=== PATIENT | female | born 1985 | race Two or more races ===

== ENCOUNTER 2024-01-15 00:05 | Emergency (ER) | payer MEDICAID ==
[~2024-01-15] VITALS: Ht 177.8 cm; Wt 113.6 kg
[2024-01-15] MEDS: OXYMETAZOLINE HCL 0.05 % NASAL SPRAY 15ML EACHNOSTRI ONE (00:19)
[2024-01-15 02:09] VITALS: BP 159/90; TEMP 99
[2024-01-15 02:19] VITALS: PULSE 94; RESP 20; O2SAT 96
== END 2024-01-15 02:21 | disposition home or self-care (01) ==
LOC: ER 00:05
DX: R04.0 Epistaxis (principal); R42 Dizziness and giddiness; R53.1 Weakness; Z88.0 Allergy status to penicillin

== ENCOUNTER 2024-06-12 01:03 | Emergency (ER) | payer SELFPAY ==
[~2024-06-12] VITALS: Ht 177.8 cm; Wt 113.6 kg
--- NOTE | 2024-06-12 01:57 | DVH ---
XY L KNEE 3V XRAY, INDICATION: pain injuiry TECHNICAL DATA: Multiple views of the left femur and knee. COMPARISON: None Findings/impression: No acute fracture or dislocation. 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 No significant knee joint effusion.
[2024-06-12] MEDS: MORPHINE SULFATE INJ 2 MG/ml SYRG IM ONE (03:05)
[2024-06-12] MEDS ORDERED: KETO10TA PO (03:12)
[2024-06-12] MEDS ORDERED: TIZA-142 PO (03:12)
--- NOTE | 2024-06-12 03:12 | ED.PDOC ---
Back pain HPI HPI Comments 8-year-old female presents to the ED chief complaint left upper leg pain. Patient states on 06/06 fell in bathroom landing on her left side hurting her left leg. Left leg pain upper thigh radiating into knee lower leg 10/10 on pain scale sharp shooting type pain she also notes some swelling. Notes taking ove [id number] ibuprofen with little relief. Denies numbness, weakness, neck pain, back pain, head injury or LOC. Chief Complaint: Lower Extremity Time Seen by MD: 01:12 Primary Care Provider: None Reviewed Notes: Nurses Notes, Medications, Allergies Allergies: Coded Allergies: Penicillins (Verified Allergy, Unknown, 01/15/24) Home Meds Active Scripts Ketorolac Tromethamine (Ketorolac Tromethamine) 10 Mg Tab, 1 TAB PO TID PRN for 5 Days, #15 TAB Prov:JOSE MARIN ACCOUNTANT PROPERTY 06/12/24 Tizanidine Hydrochloride (Tizanidine Hcl) 4 Mg Tab, 1 TAB PO BID PRN for 7 Days, #14 TAB Prov:JOSE MARINP 06/12/24 Information Source: Patient Mode of Arrival: Ambulatory Past Medical History PAST MEDICAL HISTORY: Anemia Surgical History: Denies all surgeries TRAINING SPECIALIST History: No Pertinent TRAINING SPECIALIST History Family History Family History: Reviewed,noncontributory to illness Social History Smoker: Non-Smoker Alcohol: Denies ETOH Use Drugs: Denies Drug Use Constitutional: denies: chills, diaphoresis, fatigue, fever, malaise, sweats, weakness, others EENTM: denies: blurred vision, double vision, ear bleeding, ear discharge, ear drainage, ear pain, ear ringing, eye pain, eye redness, hearing loss, mouth pain, mouth swelling, nasal discharge, nose bleeding, nose congestion, nose pain, photophobia, tearing, throat pain, throat swelling, voice changes, others Respiratory: denies: cough, hemoptysis, orthopnea, SOB at rest, shortness of breath, SOB with excertion, stridor, wheezing, others Cardiovascular: denies: chest pain, dizzy spells, diaphoresis, Dyspnea on exertion, edema, irregular heart beat, left arm pain, lightheadedness, palpitations, PND, syncope, others Gastrointestinal: denies: abdomen distended, abdominal pain, blood streaked bowels, constipated, diarrhea, dysphagia, difficulty swallowing, hematemesis, melena, nausea, poor appetite, poor fluid intake, rectal bleeding, rectal pain, vomiting, others Genitourinary: denies: abnormal vagina bleeding, burning, dyspareunia, dysuria, flank pain, frequency, hematuria, incontinence, pain, , vagina discharge, urgency, others Neurological: denies: dizziness, fainting, headache, left sided numbness, left sided weakness, numbness, paresthesia, pre-existing deficit, right sided numbness, right sided weakness, seizure, speech problems, tingling, tremors, weakness, others Musculoskeletal: denies: back pain, gout, joint pain, joint swelling, muscle pain, muscle stiffness, neck pain, others Integumetry: denies: bruises, change in color, change in hair/nails, dryness, laceration, lesions, lumps, rash, wounds, others Allergic/Immunocompromised: denies: Difficulty Healing, Frequent Infections, Hives, Itching, others Hematologic/Lymphatic: denies: anemia, blood clots, easy bleeding, easy bruising, swollen glands, others Endocrine: denies: excessive hunger, excessive sweating, excessive thirst, excessive urination, flushing, intolerance to cold, intolerance to heat, un explained weight gain, unexplained weight loss, others Psychiatric: denies: anxiety, bipolar disorder, depression, hopeless, panic disorder, schizophrenia, sleepless, suicidal, others Physical Exam General Appearance: No Apparent Distress, Normal HEENT: Pharynx Normal Neck: Full Range of Motion, Non-Tender Respiratory: Lungs Clear, No Respiratory Distress, Normal Breath Sounds Cardiovascular: No Murmur, Normal Peripheral Pulses, Regular Rate/Rhythm Breast Exam: Deferred Gastrointestinal: Non Tender, Soft Genitalia: Deferred Pelvic: Deferred Rectal: Deferred Extremities: No calf tenderness, Normal capillary refill, Normal inspection, Normal range of motion, Non-tender, No pedal edema Musculoskeletal : Location: Left Extremity Location: Leg (Complete left thigh with moderate tenderness on palpation no noted ecchymosis, lacerations, lesions or abrasions strength sensory motion intact positive pedal pulse) Apperance: Normal Neurologic: Alert, glass checker II-XII nml as Tested, No Motor Deficits, Normal Affect, Normal Mood, No Sensory Deficits Cerebellar Function: Normal Reflexes: Normal Skin: Dry, Normal Color, Warm Lymphatic: No Adenopathy Was a procedure done? Was a procedure done?: No Back Pain Differential Dx Differential Diagnosis: Musculoskeletal Pain X-Ray, Labs, Meds, VS Vital Signs Date Time Temp Pulse Resp B/P (MAP) Pulse Ox O2 Delivery O2 Flow Rate FiO2 06/12/24 03:41 101 20 126/65 06/12/24 03:05 102 20 133/75 06/12/24 01:07 98.8 110 18 141/80 (100) 92 Current Medications Medications (Trade) Dose Ordered Sig/Bárbara Route Start Time Stop Time Status Last Admin Morphine Sulfate 1 mg ONCE ONCE IM 06/12/24 01:15 06/12/24 01:16 DC 06/12/24 03:05 X-Ray, Labs, Meds, VS Comment Xray impression: no acute fracture or dislocation. 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 No significant knee joint effusion. Given 1 mg morphine IM reports improvement in pain requesting discharge at this time. Likely muscle strain. Script Toradol 10 mg t.i.d. and tizanidine twice daily. Advised to follow up with her PCP regarding results of her x-ray to my of prior bony infarct. Concert blood work and MRI. Advised on rice. Return precautions given patient indicated understanding agrees with discharge plan of care. Time of 1ST Reevaluation: 04:18 Reevaluation 1ST: Improved Patient Education/Counseling: Diagnosis, Treatment, Prognosis, Need For Follow Up Family Education/Counseling: Diagnosis, Treatment, Prognosis, Need For Follow Up Departure 1 Departure Time of Disposition: 04:18 Impression: Primary Impression: Muscle strain of left thigh Qualified Codes: S76.912A - Strain of unspecified muscles, fascia and tendons at thigh level, left thigh, initial encounter Disposition: HOME / SELF CARE / HOMELESS Condition: Stable e-Prescriptions Ketorolac Tromethamine (Ketorolac Tromethamine) 10 Mg Tab 1 TAB PO TID PRN for 5 Days, #15 TAB Prov: JOSE MARIN 06/12/24 Tizanidine Hydrochloride (Tizanidine Hcl) 4 Mg Tab 1 TAB PO BID PRN for 7 Days, #14 TAB Prov: JOSE MARINP 06/12/24 Discharged With: Significant Other Critical Care Note Critical Care Time?: No Stability Stability form required: JOSE Medina Jun 12, 2024 03:12
[2024-06-12 03:45] VITALS: BP 126/65; PULSE 101; RESP 20; TEMP 98.2; O2SAT 95
== END 2024-06-12 03:58 | disposition home or self-care (01) ==
LOC: ER 01:03
DX: S76.812A Strain of other specified muscles, fascia and tendons at thigh level, left thigh, initial encounter (principal); D64.9 Anemia, unspecified; Z88.0 Allergy status to penicillin; Z79.899 Other long term (current) drug therapy; W18.39XA Other fall on same level, initial encounter; Y93.89 Activity, other specified; Y92.89 Other specified places as the place of occurrence of the external cause; Y99.8 Other external cause status
CPT/HCPCS: 73552; 73562; 96372; 99284; J2270

== ENCOUNTER 2024-06-13 04:41 | Inpatient (IN) | payer SELFPAY ==
[2024-06-13] VITALS (17 sets, daily range): BP systolic 105–142; BP diastolic 60–75; PULSE 92–109; RESP 17–20; TEMP 89.9–99.1; O2SAT 95–100
[~2024-06-13] VITALS: Ht 177.8 cm; Wt 114.8 kg
[~2024-06-13 04:41] MED LIST: KETO10TA PO; TIZA-142 PO
[2024-06-13] MEDS: LORazepam 2MG/ML-1ML VIAL IV ONE (05:15)
[2024-06-13] MEDS: ALBUTEROL SULF 2.5 MG/0.5ML(0.5%) NEB SOLN NEB ONE (05:27)
[2024-06-13] MEDS: IPRATROPIUM BROM 0.5 MG/2.5ML INH SOL NEB ONE (05:28)
[2024-06-13] MEDS: SODIUM CHLORIDE 0.9% 1,000 ML IV ONE (05:38)
[2024-06-13 05:46] LABS: Eosinophils # (auto) 0 10 ^3/uL (0-0.8); Eosinophils % (auto) 0.2 % (0.0-7.0); Hematocrit 18.7 % (36.0-46.0); Lymphocytes % (auto) 10.3 % (10.0-50.0); Monocytes # (auto) 0.6 10 ^3/uL (0-1.3)
[2024-06-13] MEDS: ONDANSETRON HCL 4 MG/2 ML VIAL IV ONE (05:49)
[2024-06-13 05:50] LABS: Basophils # (auto) 0.1 10 ^3/uL (0-0.2); Basophils % (auto) 0.6 % (0.0-2.0); Mean Corpuscular Hemoglobin 23.8 pg (28.0-32.0); Mean Corpuscular Hgb Conc. 32.1 g/dL (32.0-36.0); Mean Corpuscular Volume 74.4 fL (80.0-100.0); Monocytes % (auto) 5.8 % (0.0-12.0); Neutrophils # (auto) 8.1 10 ^3/uL (1.6-8.6); Neutrophils % (auto) 83.1 % (37.0-80.0); Nucleated Red Blood Cells % 0.5 %; Platelet Count (auto) 81 10^3/uL (140-450); Red Blood Cells 2.52 10^6/uL (4.0-5.20); Red Cell Distribution Width 21.1 % (11.8-14.3); White Blood Cell 9.8 10^3/uL (4.4-10.8)
--- NOTE | 2024-06-13 06:03 | ED.PDOC ---
History of Present Illness HPI Comments 38 year old female brought in by family complaining of shortness of breath. Patient had a ground level fall 06/06 and injured her left leg. Patient states she has been self medicating with ibuprofen for the pain. Patient seen in ED yesterday for the lower extremity pain and bruising, diagnostics done and karlos ent was prescribed Tizanidine and Ketorolac for the pain. Yesterday, after taking the meds she states she developed shortness of breath, chest discomfort, nausea, fatigue, generalized weakness and continues to bruise easily. Patient currently not on her period, but states she does have heavy menses. Denies any active bleeding. Chief Complaint: Shortness of Breath Time Seen by MD: 06:03 Primary Care Provider: None Reviewed Notes: Nurses Notes Allergies: Coded Allergies: Penicillins (Verified Allergy, Unknown, 01/15/24) Home Meds Active Scripts Ketorolac Tromethamine (Ketorolac Tromethamine) 10 Mg Tab, 1 TAB PO TID PRN for 5 Days, #15 TAB Prov:JOSE MARIN OPERATOR HELPER 06/12/24 Tizanidine Hydrochloride (Tizanidine Hcl) 4 Mg Tab, 1 TAB PO BID PRN for 7 Days, #14 TAB Prov:JOSE MARIN 06/12/24 Information Source: Patient Mode of Arrival: Wheelchair Severity: Moderate Timing: Hours Duration: Since onset Prehospital treatment: None Past Medical History PAST MEDICAL HISTORY: Anemia Surgical History: Denies all surgeries FLOTATION TANK OPERATOR History: No Pertinent FLOTATION TANK OPERATOR History Family History Family History: Reviewed,noncontributory to illness Social History Smoker: Non-Smoker Alcohol: Denies ETOH Use Drugs: Denies Drug Use Lives In: Home Constitutional: reports: fatigue, weakness; denies: chills, diaphoresis, fever, malaise, sweats, others EENTM: denies: blurred vision, double vision, ear bleeding, ear discharge, ear drainage, ear pain, ear ringing, eye pain, eye redness, hearing loss, mouth pain, mouth swelling, nasal discharge, nose bleeding, nose congestion, nose pain, photophobia, tearing, throat pain, throat swelling, voice changes, others Respiratory: reports: shortness of breath; denies: cough, hemoptysis, orthopnea, SOB at rest, SOB with excertion, stridor, wheezing, others Cardiovascular: reports: chest pain; denies: dizzy spells, diaphoresis, Dyspnea on exertion, edema, irregular heart beat, left arm pain, lightheadedness, palpitations, PND, syncope, others Gastrointestinal: reports: nausea, vomiting; denies: abdomen distended, abdominal pain, blood streaked bowels, constipated, diarrhea, dysphagia, difficulty swallowing, hematemesis, melena, poor appetite, poor fluid intake, rectal bleeding, rectal pain, others Genitourinary: denies: abnormal vagina bleeding, burning, dyspareunia, dysuria, flank pain, frequency, hematuria, incontinence, pain, , vagina discharge, urgency, others Neurological: reports: dizziness; denies: fainting, headache, left sided numbness, left sided weakness, numbness, paresthesia, pre-existing deficit, right sided numbness, right sided weakness, seizure, speech problems, tingling, tremors, weakness, others Musculoskeletal: denies: back pain, gout, joint pain, joint swelling, muscle pain, muscle stiffness, neck pain, others Integumetry: denies: bruises, change in color, change in hair/nails, dryness, laceration, lesions, lumps, rash, wounds, others Allergic/Immunocompromised: denies: Difficulty Healing, Frequent Infections, Hives, Itching, others Hematologic/Lymphatic: denies: anemia, blood clots, easy bleeding, easy bruising, swollen glands, others Endocrine: denies: excessive hunger, excessive sweating, excessive thirst, excessive urination, flushing, intolerance to cold, intolerance to heat, unexplained weight gain, unexplained weight loss, others Psychiatric: reports: anxiety; denies: bipolar disorder, depression, hopeless, panic disorder, schizophrenia, sleepless, suicidal, others Physical Exam General Appearance: Mild Distress, Obese HEENT: Pale Conjuntivae (L), Pale Conjuntivae (R), Other (Bilateral small subconjunctival hemorrhages) Neck: Full Range of Motion, Normal Inspection Respiratory: No Accessory Muscle Use, Respiratory Distress (Mild), Rhonchi Cardiovascular: No Edema, No JVD, Tachycardia Breast Exam: Deferred Gastrointestinal: Non Tender, Soft Genitalia: Deferred Pelvic: Deferred Rectal: Deferred Extremities: Normal range of motion, Non-tender, No pedal edema Neurologic: Alert (Oriented x4), No Motor Deficits, Normal Affect, No Sensory Deficits, Other (Appears anxious) Cerebellar Function: NOT DONE Reflexes: NOT DONE Skin: Bruises (On abdominal wall and extremities), Dry, Pallor, Warm Lymphatic: NOT DONE Was a procedure done? Was a procedure done?: No EKG EKG : Comments Sinus tach, rate 101, normal UT and QRS intervals, QTC 480, normal axis, normal QRS, nonspecific T changes. Differential Dx Considerations may include: anemia, electrolyte imbalance, anxiety, bronchitis, pneumonia, viral syndrome, medication side effect, ACS, OR, arrhythmia among others X-Ray, Labs, Meds, VS Vital Signs Date Time Temp Pulse Resp B/P (MAP) Pulse Ox O2 Delivery O2 Flow Rate FiO2 06/13/24 05:48 103 20 95 Room Air* 0 21 06/13/24 05:48 103 20 105/75 (85) 95 06/13/24 05:28 20 97 Room Air* 0 21 06/13/24 04:57 101 06/13/24 04:50 20 95 Room Air* 0 21 06/13/24 04:50 99.1 103 20 105/75 (85) 95 Lab Test 06/13/24 05:15 Range/Units White Blood Count 9.8 4.4-10.8 10^3/uL Red Blood Count 2.52 L 4.0-5.20 10^6/uL Hemoglobin 6.0 *L 12.2-16.2 g/dL Hematocrit 18.7 L 36.0-46.0 % Mean Corpuscular Volume 74.4 L 80.0-100.0 fL Mean Corpuscular Hemoglobin 23.8 L 28.0-32.0 pg Mean Corpuscular Hemoglobin Concent 32.1 32.0-36.0 g/dL Red Cell Distribution Width 21.1 H 11.8-14.3 % Platelet Count 81 L 140-450 10^3/uL Mean Platelet Volume 8.3 6.9-10.8 fL Neutrophils (%) (Auto) 83.1 H 37.0-80.0 % Lymphocytes (%) (Auto) 10.3 10.0-50.0 % Monocytes (%) (Auto) 5.8 0.0-12.0 % Eosinophils (%) (Auto) 0.2 0.0-7.0 % Basophils (%) (Auto) 0.6 0.0-2.0 % Neutrophils # (Auto) 8.1 1.6-8.6 10 ^3/uL Lymphocytes # (Auto) 1.0 0.4-5.4 10 ^3/uL Monocytes # (Auto) 0.6 0-1.3 10 ^3/uL Eosinophils # (Auto) 0 0-0.8 10 ^3/uL Basophils # (Auto) 0.1 0-0.2 10 ^3/uL Nucleated Red Blood Cells 0.5 % Platelet Estimate Pending Prothrombin Time Pending Prothrombin Time INR Pending Activated Partial Thromboplast Time Pending Sodium Level 123 L 136-145 mmol/L Potassium Level 3.7 3.5-5.1 mmol/L Chloride Level 93 L 98-107 mmol/L Carbon Dioxide Level 19 L 20-31 mmol/L Anion Gap 11 5-15 Blood Urea Nitrogen 6 L 9-23 mg/dL Creatinine 0.80 0.550-1.02 mg/dL Glomerular Filtration Rate Calc 97 >90 mL/min BUN/Creatinine Ratio 7.5 L 10.0-20.0 Serum Glucose 116 H 74-106 mg/dL Calcium Level 8.6 L 8.7-10.4 mg/dL Total Bilirubin 4.0 H 0.2-1.0 mg/dL Aspartate Amino Transferase (AST) 97 H 13-40 U/L Alanine Aminotransferase (ALT) 27 7-40 U/L Alkaline Phosphatase 131 H 46-116 U/L Troponin I High Sensitivity 3 L </=34 ng/L B-Type Natriuretic Peptide 349.98 0-100 pg/mL Total Protein 8.4 H 5.7-8.2 g/dL Albumin 3.7 3.2-4.8 g/dL Beta HCG, Quantitative 0.6 L 1.5-4.2 mIU/mL Current Medications Medications (Trade) Dose Ordered Sig/Bárbara Route Start Time Stop Time Status Last Admin Sodium Chloride 1,000 ml @ 1,000 mls/hr Q1H ONCE IV 06/13/24 05:15 06/13/24 06:14 DC 06/13/24 05:47 Ondansetron HCl (Zofran) 4 mg ONCE ONCE IV 06/13/24 05:15 06/13/24 05:16 DC 06/13/24 05:49 Albuterol (Ventolin Medneb) 2.5 mg ONCE ONCE NEB 06/13/24 05:15 06/13/24 05:16 DC 06/13/24 05:27 Ipratropium [place] (Atrovent Medneb) 0.5 mg ONCE ONCE NEB 06/13/24 05:15 06/13/24 05:16 DC 06/13/24 05:28 X-Ray, Labs, Meds, VS Comment 38-year-old female with a history of anemia complaining of shortness a breath, chest discomfort, easy bruising Vitals remarkable for heart rate 103 Exam remarkable for mild respiratory distress and rhonchi, pallor, anxiety Rhythm strip independently interpreted by me: Sinus tach, rate 101, no ectopy. Chest x-ray pending CBC remarkable for hemoglobin 6, platelets 81 CMP remarkable for sodium 123, chloride 93, CO2 19, BNP 349.98, troponin negative, hCG negative, coagulation panel pending Patient treated with the following in the ED: 1 L 0.9 normal saline IV bolus, albuterol 2.5 mg, Atrovent 0.5 mg nebulized, Zofran 4 mg IV, Ativan 0.5 mg IV. Patient typed and crossed for 2 units of packed red cells and transfusion ordered. Plan is to admit the patient for transfusion and Heme-Onc evaluation Patient endorsed to oncoming ED physician at 6:00 a.m. to follow-up on chest x- ray and remainder of labs. Time of 1ST Reevaluation: 05:58 Reevaluation 1ST: Unchanged Consultation: Neurology Patient Education/Counseling: Diagnosis, Treatment Family Education/Counseling: No Family Present Departure 1 Departure Time of Disposition: 06:11 Impression: Primary Impression: Severe anemia Additional Impression: Thrombocytopenia Disposition: 09 ADMITTED INPATIENT Admit to: Tele Condition: Guarded Critical Care Note Critical Care Time?: Yes (35 min-critical care time only) Critical care comment: Critical care time including multiple bedside re-evaluations, review of lab and imaging studies, and discussion of the case with the admitting provider. Patient is high risk for hemodynamic and/or respiratory decompensation. Stability Stability form required: No Heart Score Heart Score: Heart Score Response (Comments) Value History Slightly Suspicious 0 EKG Repolarization Disturb 1 Age <45 0 Risk Factors No known risk factors 0 Troponin Normal limit 0 Total 1 I personally scribed for ROMEO MAKI MD ([email or web address]) on 06/13/24 at 06:03. Electronically submitted by Gabriel Luis ([facility]). ROMEO MAKI MD Jun 13, 2024 06:03
[2024-06-13 06:10] LABS: Alanine Aminotransferase 27 U/L (7-40); Albumin 3.7 g/dL (3.2-4.8); Anion Gap 11 (5-15); BUN/Creatinine Ratio 7.5 (10.0-20.0); Potassium 3.7 mmol/L (3.5-5.1)
[2024-06-13 06:11] LABS: Alkaline Phosphatase 131 U/L (46-116); Aspartate Aminotransferase 97 U/L (13-40); Blood Urea Nitrogen 6 mg/dL (9-23); Calcium 8.6 mg/dL (8.7-10.4); Carbon Dioxide 19 mmol/L (20-31); Chloride 93 mmol/L (98-107); Glucose 116 mg/dL (74-106); Sodium 123 mmol/L (136-145); Total Protein 8.4 g/dL (5.7-8.2)
[2024-06-13 06:18] LABS: INR 1.36 (0.9-1.15); Partial Thromboplastin Time 29.9 SEC (24.5-34.5); Prothrombin Time 14.1 sec (9.3-11.8)
--- NOTE | 2024-06-13 06:37 | DVH ---
CHEST RADIOGRAPH Indication: sob Technique: Single frontal view of the chest was obtained COMPARISON: None FINDINGS: Lines and Tubes: None Lungs: Diffuse increased interstitial prominence. Pleura: No effusion. No pneumothorax. Cardiomediastinal contours: Unremarkable Bones: Unremarkable IMPRESSION: Viral pneumonia versus pulmonary vascular congestion
[2024-06-13] MEDS ORDERED: HYDROcodone-ACET 5/325MG TAB PO PRN (06:45)
[2024-06-13] MEDS ORDERED: ONDANSETRON HCL 4 MG/2 ML VIAL IV PRN (06:45)
[2024-06-13 06:48] LABS: Hypochromia Slight; Platelet Estimate Decreased; Stomatocytes Few
--- NOTE | 2024-06-13 07:14 | DVHHP2 ---
History of Present Illness Reason for Visit: Shortness of breath, weakness, nausea, fatigue, and bruising History of Present Illness Cassie Ferreira is a 38-year-old female with no past medical history who presents to the ED for shortness of breath, bruising, weakness, nausea, and fatigue x1 day. Patient states that she took Toradol at 8:00 a.m. yesterday and around 2 or 3:00 p.m. she started to develop symptoms. Patient also reports that on June 06 she took Mucinex and drank alcohol, was in the shower slipped and fell on her back did not hit her head but she also struck her left side of her leg on the shower and eventually developed bruising. Patient reports that she has bruising all throughout her body and she is not too sure why. Patient reports that she was also sick with a sore throat and congestion for the last 2 weeks. She stated she would just took Mucinex to help with the symptoms with no relief. Patient also reports that she has not seen a primary care physician for over 5 years and does not have 1 currently. Patient denies any chest pain, abdominal pain, vomiting, diarrhea, lightheadedness, and dizziness. Past Surgical History: Other (Left ankle surgery has a plate) Family History: DM, Other (Mom diabetes) Smoke: No ALCOHOL: occassional Drugs: None Lives: with Family Domestic Violence: Neg Review of Systems Constitutional: Yes: Weakness, Other (Fatigue); No: Fever, Chills, Sweats, Malaise Eyes: No: Pain, Vision change, Conjunctivae inflammation, Eyelid inflammation, Other, Redness ENT: No: Ear pain, Ear discharge, Nose pain, Nose discharge, Nose congestion, Mouth pain, Mouth swelling, Throat pain, Throat swelling, Other Respiratory: Shortness of breath; No: Cough, Dry, SOB with excertion, Wheezing, Hemoptysis, Pleuritic Pain, Sputum, Wheezing, Other Cardiovascular: No: Chest Pain, Palpitations, Orthopnea, Paroxysmal Noc. Dyspnea, Edema, Lt Headedness, Other Gastrointestinal: Nausea; No: Vomiting, Abdominal Pain, Diarrhea, Constipation, Melena, Hematochezia, Other Genitourinary: No Dysuria, No Frequency, No Incontinence, No Hematuria, No Retention, No Other Musculoskeletal: leg pain; No: other, neck pain, shoulder pain, arm pain, back pain, hand pain, foot pain Skin: Bruising; No: Rash, Lesions, Jaundice, Other Neurological: No: Weakness, Numbness, Incoordination, Change in speech, Confusion, Seizures, Other Allergies: Coded Allergies: Penicillins (Verified Allergy, Mild, dizziness, 06/13/24) Medications Current Medications Medications Dose Ordered Sig/Bárbara Route Start Time Stop Time Status Last Admin Dose Admin Albuterol 2.5 mg Q6HWA NEB 06/13/24 12:00 UNV Albuterol 2.5 mg Q4HPRN PRN NEB 06/13/24 06:45 UNV Ipratropium [place] 0.5 mg Q6HWA NEB 06/13/24 12:00 UNV Ipratropium [place] 0.5 mg Q4HPRN PRN NEB 06/13/24 06:45 UNV Acetaminophen/ Hydrocodone Bitart 1 tab Q4HP PRN PO 06/13/24 06:45 UNV Ondansetron HCl 4 mg Q4HP PRN IV 06/13/24 06:45 UNV Acetaminophen 650 mg Q6HP PRN PO 06/13/24 06:45 UNV Diphenhydramine HCl 25 mg Q6HP PRN IV 06/13/24 06:45 UNV Methylprednisolone Sodium Succinate 40 mg Q8HR IV 06/13/24 14:00 UNV Famotidine 20 mg DAILY IV 06/13/24 10:00 UNV Exam Vital Signs Vital Signs Date Time Temp Pulse Resp B/P (MAP) Pulse Ox O2 Delivery O2 Flow Rate FiO2 06/13/24 05:48 103 20 95 Room Air* 0 21 06/13/24 05:48 105/75 (85) 06/13/24 04:50 99.1 General Appearance: Alert, Oriented X3, Cooperative, No acute distress HEENT: Atraumatic, PERRLA, EOMI, Mucous membr. moist/pink Respiratory: Normal air movement Cardiovascular: Normal S1, Normal S2, No murmurs Abdominal: Normal bowel sounds, Soft, No tenderness, No hepatospenomegaly, No masses Extremities: No clubbing, No cyanosis, No edema, Normal pulses, No tenderne ss/swelling Skin: No rashes, No breakdown, No significant lesion Neuro: Normal gait, Normal speech, Strength at 5/5 X4 ext, Normal tone, Sensation intact Psych/Mental Status: Mental status NL, Mood NL Labs/Xrays Labs Test 06/13/24 06:15 06/13/24 05:15 Range/Units Troponin I High Sensitivity < 3 L </=34 ng/L White Blood Count 9.8 4.4-10.8 10^3/uL Red Blood Count 2.52 L 4.0-5.20 10^6/uL Hemoglobin 6.0 *L 12.2-16.2 g/dL Hematocrit 18.7 L 36.0-46.0 % Mean Corpuscular Volume 74.4 L 80.0-100.0 fL Mean Corpuscular Hemoglobin 23.8 L 28.0-32.0 pg Mean Corpuscular Hemoglobin Concent 32.1 32.0-36.0 g/dL Red Cell Distribution Width 21.1 H 11.8-14.3 % Platelet Count 81 L 140-450 10^3/uL Mean Platelet Volume 8.3 6.9-10.8 fL Neutrophils (%) (Auto) 83.1 H 37.0-80.0 % Lymphocytes (%) (Auto) 10.3 10.0-50.0 % Monocytes (%) (Auto) 5.8 0.0-12.0 % Eosinophils (%) (Auto) 0.2 0.0-7.0 % Basophils (%) (Auto) 0.6 0.0-2.0 % Neutrophils # (Auto) 8.1 1.6-8.6 10 ^3/uL Lymphocytes # (Auto) 1.0 0.4-5.4 10 ^3/uL Monocytes # (Auto) 0.6 0-1.3 10 ^3/uL Eosinophils # (Auto) 0 0-0.8 10 ^3/uL Basophils # (Auto) 0.1 0-0.2 10 ^3/uL Nucleated Red Blood Cells 0.5 % Platelet Estimate Decreased Hypochromasia (manual) Slight Microcytosis Slight Stomatocytes Few Prothrombin Time 14.1 H 9.3-11.8 sec Prothrombin Time INR 1.36 H 0.9-1.15 Activated Partial Thromboplast Time 29.9 24.5-34.5 SEC Sodium Level 123 L 136-145 mmol/L Potassium Level 3.7 3.5-5.1 mmol/L Chloride Level 93 L 98-107 mmol/L Carbon Dioxide Level 19 L 20-31 mmol/L Anion Gap 11 5-15 Blood Urea Nitrogen 6 L 9-23 mg/dL Creatinine 0.80 0.550-1.02 mg/dL Glomerular Filtration Rate Calc 97 >90 mL/min BUN/Creatinine Ratio 7.5 L 10.0-20.0 Serum Glucose 116 H 74-106 mg/dL Calcium Level 8.6 L 8.7-10.4 mg/dL Total Bilirubin 4.0 H 0.2-1.0 mg/dL Aspartate Amino Transferase (AST) 97 H 13-40 U/L Alanine Aminotransferase (ALT) 27 7-40 U/L Alkaline Phosphatase 131 H 46-116 U/L B-Type Natriuretic Peptide 349.98 0-100 pg/mL Total Protein 8.4 H 5.7-8.2 g/dL Albumin 3.7 3.2-4.8 g/dL Beta HCG, Quantitative 0.6 L 1.5-4.2 mIU/mL CHEST RADIOGRAPH Indication: sob Technique: Single frontal view of the chest was obtained COMPARISON: None FINDINGS: Lines and Tubes: None Lungs: Diffuse increased interstitial prominence. Pleura: No effusion. No pneumothorax. Cardiomediastinal contours: Unremarkable Bones: Unremarkable IMPRESSION: Viral pneumonia versus pulmonary vascular congestion Assessment/Plan Assessment/Plan Assessment/Plan: Acute allergic reaction Severe anemia Thrombocytopenia Hyponatremia R/O Pneumonia Chest x-ray COVID test Flu test Respiratory treatments Ativan given by ER NS given by ER Transfuse PRBCs for hemoglobin less than 7.0 Type and screen PT/PTT HCg Troponins negative Antiemetics EKG UA BNP IV antibiotics IV steroids IV antihistamines Obesity Counseled patient on lifestyle modifications, diet, and exercise ETOH use Counseled patient on ETOH use and cessation FEN/PPX Diet IVf DVT prophylaxis not indicated patient ambulating and patient thrombocytopenic PUD prophylaxis-famotidine given with steroids Home medications not reconciled-possibly reaction to meds that were prescribed Discussed plan of care with patient and nurse Admit to tele Plan discussed with: Patient My Orders Orders - CORRIE ALEXANDRE [employer] Procedure Category Date Status Time Albuterol Medneb PHA 06/13/24 Logged (Ventolin Medneb) 12:00 Albuterol Medneb PHA 06/13/24 Logged (Ventolin Medneb) 06:45 Ipratropium Medneb PHA 06/13/24 Logged (Atrovent Medneb) 12:00 Ipratropium Medneb PHA 06/13/24 Logged (Atrovent Medneb) 06:45 Admit ADMIT 06/13/24 Transmitted 06:36 Allergies RAFAEL 06/13/24 In Process 06:36 Code Status CODE 06/13/24 Transmitted 06:36 Hydrocodone-Acet PHA 06/13/24 Logged 5/325mg Tab ([place] 06:45 Ondansetron Hcl PHA 06/13/24 Logged (Zofran) 06:45 Complete Blood Count LAB 06/14/24 Verified 04:00 Comprehensive LAB 06/14/24 Verified Metabolic Panel 04:00 Cardiac DIET 06/13/24 Transmitted Diet-2gna,Lofat,Lochol Breakfast Acetaminophen Tablet PHA 06/13/24 Logged (Tylenol Tablet) 06:45 Diphenhdramine PHA 06/13/24 Logged Injection (Benadryl 06:45 Methylprednisolone PHA 06/13/24 Logged Sod Succ (Solu Medrol 14:00 Famotidine Injection PHA 06/13/24 Logged (Pepcid Injection) 10:00 Ceftriaxone 1gm/50ml PHA 06/13/24 Logged D5w (Rocephin) 09:00 Ceftriaxone 1gm/50ml PHA 06/13/24 Logged D5w (Rocephin) 07:15 Date of Service: Jun 13, 2024 Billing Provider: CORRIE ALEXANDRE Common Visit Codes: [id number] INP/OBS CARE (HIGH) CORRIE ALEXANDRE Jun 13, 2024 07:14
[2024-06-13] MEDS: SODIUM CHLORIDE 0.9% 1,000 ML IV SCH (08:08)
[2024-06-13 08:13] LABS: Rapid Influenza A Negative (Negative); Rapid Influenza B Negative (Negative)
[2024-06-13] MEDS: FAMOTIDINE (10MG/ML) 2ML VL IV SCH (09:48)
[2024-06-13] MEDS: IPRATROPIUM BROM 0.5 MG/2.5ML INH SOL NEB SCH (11:34)
[2024-06-13] MEDS: ALBUTEROL SULF 2.5 MG/0.5ML(0.5%) NEB SOLN NEB SCH (11:34)
[2024-06-13 11:39] LABS: Urine Bacteria None Seen /hpf (None Seen)
[2024-06-13] MEDS: diphenhdrAMINE HCL 50 MG/1 ML VL IV PRN (11:41)
[2024-06-13] MEDS: cefTRIAXone 1GM/50ML D5W 50 ML IV ONE (11:42)
[2024-06-13 11:43] LABS: Urine Blood 3+ /uL (Negative); Urine Clarity Clear (Clear); Urine Color Yellow (Yellow); Urine Protein, UAD 2+ (Negative); Urine Specific Gravity 1.011 (1.001-1.035); Urine Squamous Epithelial Cell FEW /hpf (<5); Urine Urobilinogen 6 mg/dL (Negative); Urine WBC <1 /hpf (0 - 5); Urine pH 6.5 (5.0-9.0)
[2024-06-13 14:21] LABS: Amphetamine Screen, Urine Neg (NEGATIVE); Barbiturate Scree,Urine Neg (NEGATIVE); Benzodiazephine Screen, Urine Neg (NEGATIVE); Cannabinoid Screen, Urine Neg (NEGATIVE)
[2024-06-13 14:27] LABS: Cocaine Screen, Urine Neg (NEGATIVE); Opiate Scree,Urine Neg (NEGATIVE); Phencyclidine Screen, Urine Neg (NEGATIVE)
[2024-06-13] MEDS: methylPREDNISolone SOD SUCC 40 MG/ML VL IV SCH (15:23)
[2024-06-13 21:56] LABS: COVID19 ANTIGEN SOFIA FIA NEGATIVE (NEGATIVE)
[2024-06-13] MEDS: ACETAMINOPHEN 325 MG TAB PO PRN (23:18)
--- NOTE | 2024-06-13 23:50 | DVHPN2 ---
Subjective 06/13 - pt had recent URI, then feeling weak, recently had a fall on knees in bathroom, but mild bruising in right flank or periumbilcl region. took toradol which caused brusing to onset, shes calling it a allergic reaction. she denies any bleeding from any orifices. denies alcohol. she has severe sore throat. Reviewed: H&P Changes from previous H/P or p: No Changes General: Per HPI Objective Vitals Vital Signs Date Time Temp Pulse Resp B/P (MAP) Pulse Ox O2 Delivery O2 Flow Rate FiO2 06/13/24 23:18 99.1 06/13/24 23:16 108 16 141/87 (105) 95 06/13/24 18:20 Room Air* 0 21 Exam GEN: Healthy appearing, well-developed, under mild distress due to symptoms HEENT: NC/AT; MMM. Hoarse voice. CV: RRR, no m/r/g. LUNGS: CTAB, no w/r/c. ABD: Soft, NT/ND, NBS, no masses or organomegaly. Bruising on periumbilical well lower quadrant region. EXT: skin Warm, well perfused. no rashes. No clubbing, cyanosis, or edema. P itting edema 1 to 2+ up to dior NEURO: Ambulating with no limitations. No focal deficits. Medications Current Medications Medications Dose Ordered Sig/Bárbara Route Start Time Stop Time Status Last Admin Dose Admin Albuterol 2.5 mg Q4HPRN PRN NEB 06/13/24 06:45 Ipratropium [place] 0.5 mg Q4HPRN PRN NEB 06/13/24 06:45 Acetaminophen/ Hydrocodone Bitart 1 tab Q4HP PRN PO 06/13/24 06:45 Ondansetron HCl 4 mg Q4HP PRN IV 06/13/24 06:45 Acetaminophen 650 mg Q6HP PRN PO 06/13/24 06:45 06/13/24 23:18 650 MG Diphenhydramine HCl 25 mg Q6HP PRN IV 06/13/24 06:45 06/13/24 11:41 25 MG Methylprednisolone Sodium Succinate 40 mg Q8HR IV 06/13/24 14:00 06/13/24 23:17 40 MG Famotidine 20 mg DAILY IV 06/13/24 10:00 06/13/24 09:48 20 MG Ceftriaxone Sodium 50 ml @ 100 mls/hr DAILY@09 IV 06/14/24 09:00 Sodium Chloride 1,000 ml @ 75 mls/hr [id number] IV 06/13/24 07:15 06/13/24 08:08 75 MLS/HR Laboratory Results Laboratory Tests 06/13/24 05:15 Chemistry Test 06/13/24 05:15 Albumin 3.7 g/dL (3.2-4.8) Calcium Level 8.6 mg/dL (8.7-10.4) L Total Protein 8.4 g/dL (5.7-8.2) H Coagulation Test 06/13/24 05:15 Prothrombin Time 14.1 sec (9.3-11.8) H Prothrombin Time INR 1.36 (0.9-1.15) H Activated Partial Thromboplast Time 29.9 SEC (24.5-34.5) Cardiac Markers Test 06/13/24 05:15 B-Type Natriuretic Peptide 349.98 pg/mL (0-100) LFT Test 06/13/24 05:15 Alanine Aminotransferase (ALT) 27 U/L (7-40) Alkaline Phosphatase 131 U/L (46-116) H Aspartate Amino Transferase (AST) 97 U/L (13-40) H Total Bilirubin 4.0 mg/dL (0.2-1.0) H Urinalysis Test 06/13/24 11:17 Urine Color Yellow (Yellow) Urine Clarity Clear (Clear) Urine pH 6.5 (5.0-9.0) Urine Specific [place] 1.011 (1.001-1.035) Urine Protein 2+ (Negative) H Urine Ketones 1+ (Negative) H Urine Blood 3+ /uL (Negative) H Urine Nitrite Negative (Negative) Urine Bilirubin 1+ (Negative) H Urine Urobilinogen 6 mg/dL (Negative) Urine Leukocyte Esterase Negative /uL (Negative) Urine RBC <1 /hpf (0 - 4) Urine WBC <1 /hpf (0 - 5) Urine Squamous Epithelial Cells Few /hpf (<5) Urine Bacteria None seen /hpf (None Seen) Urine Glucose Normal mg/dL (Normal) Labs and/or images reviewed: Labs reviewed by me, Image(s) reviewed by me Assessment/Plan Assessment/Plan 06/13 - pt had recent URI, then feeling weak, recently had a fall on knees in bathroom, but mild bruising in right flank or periumbilcl region. took toradol which caused brusing to onset, shes calling it a allergic reaction. she denies any bleeding from any orifices. denies alcohol. she has severe sore throat. Anemia , severe microcytic Thrombocytopenia Bicytopenia Upper respiratory infection Acidosis Bruising in abdomen - patient presenting with bruising, multiple respiratory symptoms --labs showing bicytopenia with anemia and thrombocytopenia. Anemia requiring 2 units PRBC -status post 2 PRBC. Recheck CBC -workup anemia (given blood, cant do iron panel) -hematology consult -CT abdomen to rule out retroperitoneal bleed Neutrophilia Sore throat - Patient presented 2 weeks of URI. With neutrophilia -check strep throat rapid, start Unasyn Hyponatremia - work-up with Moises uOsm.. Hypovolemic versus hypervol. Patient had recent URI, but also signs of volume overload. - And workup with urine sodium, urine osmoles - appears volume overload we will try slow Lasix. Elevated LFTs transaminitis Hyperbilirubinemia -on initial labs on admit, noting mild elevation in LFT and ALP. T bili noted to be elevated as well. - we will differentiate with D bili., GGT, CTabd eval liver/GB/biliary Acute on chronic diastolic heart failure possible Pitting edema bilateral - BNP elevated, bilateral pitting edema, but no rales. - echo - slow diuresis trial Diet cardiac DVT prophylaxis-SCDs GI prophylaxis tolerating diet Med tele Full code Plan discussed with: Patient My Orders Orders - GONZALO GREGORY MD Procedure Category Date Status Time Acute Hepatitis Panel LAB 06/13/24 In Process 12:44 Date of Service: Jun 13, 2024 Billing Provider: GONZALO GREGORY MD Common Visit Codes: [id number] INP/OBS CARE(HIGH) GONZALO GREGORY MD Jun 13, 2024 23:50
[2024-06-14] VITALS (13 sets, daily range): BP systolic 112–163; BP diastolic 50–95; PULSE 61–123; RESP 16–20; TEMP 97.6–98.6; O2SAT 87–100
[2024-06-14] MEDS: AMPICILLIN & SULBACTAM SODIUM 3 GM in SODIUM CHL 0.9% 100 ML IV SCH (01:30)
[2024-06-14 04:27] LABS: Basophils # (auto) 0 10 ^3/uL (0-0.2); Eosinophils # (auto) 0 10 ^3/uL (0-0.8); Hematocrit 25.1 % (36.0-46.0); Hemoglobin 8.1 g/dL (12.2-16.2); Lymphocytes # (auto) 0.3 10 ^3/uL (0.4-5.4); Lymphocytes % (auto) 3.7 % (10.0-50.0); Monocytes # (auto) 0.1 10 ^3/uL (0-1.3)
[2024-06-14 04:31] LABS: Mean Corpuscular Hemoglobin 25.6 pg (28.0-32.0); Mean Corpuscular Hgb Conc. 32.4 g/dL (32.0-36.0); Mean Corpuscular Volume 79.2 fL (80.0-100.0); Monocytes % (auto) 1.1 % (0.0-12.0); Neutrophils # (auto) 7.3 10 ^3/uL (1.6-8.6); Neutrophils % (auto) 95.2 % (37.0-80.0); Nucleated Red Blood Cells % 0.5 %; Platelet Count (auto) 92 10^3/uL (140-450); Red Blood Cells 3.18 10^6/uL (4.0-5.20); White Blood Cell 7.7 10^3/uL (4.4-10.8)
[2024-06-14 04:32] LABS: Red Cell Distribution Width 21.7 % (11.8-14.3)
[2024-06-14 04:50] LABS: Alanine Aminotransferase 26 U/L (7-40); Albumin 3.7 g/dL (3.2-4.8); Anion Gap 11 (5-15); BUN/Creatinine Ratio 10.5 (10.0-20.0); Carbon Dioxide 20 mmol/L (20-31); Chloride 99 mmol/L (98-107); Potassium 3.8 mmol/L (3.5-5.1)
[2024-06-14 04:51] LABS: Alkaline Phosphatase 124 U/L (46-116); Aspartate Aminotransferase 90 U/L (13-40); Blood Urea Nitrogen 9 mg/dL (9-23); Glucose 157 mg/dL (74-106); Sodium 130 mmol/L (136-145); Total Protein 8.7 g/dL (5.7-8.2)
[2024-06-14 07:25] LABS: Anisocytosis Slight; Platelet Estimate Decreased; Stomatocytes Few
[2024-06-14] MEDS ORDERED: cefTRIAXone 1GM/50ML D5W 50 ML IV SCH (09:00)
[2024-06-14] MEDS: IPRATROPIUM BROM 0.5 MG/2.5ML INH SOL NEB PRN (09:23)
[2024-06-14] MEDS: ALBUTEROL SULF 2.5 MG/0.5ML(0.5%) NEB SOLN NEB PRN (09:23)
--- NOTE | 2024-06-14 09:33 | DVH ---
Exam: CT CT AB PEL WO CON-NO ORAL OR IV History: abdomen bruising Comparison Study: Chest radiograph 06/13/24 Technique: Multidetector spiral CT of the abdomen was performed from lung bases to pubic symphysis. Imaging was performed without IV contrast. Axial, coronal and sagittal multiplanar reformats were ob tained from the axial data set by the technologist. Radiation Dose : 1. Abdomen/Pelvis: CTDIvol 23.3 mGy, DLP 1264.65 mGy*cm. Findings: Evaluation of solid organs is limited due to lack of intravenous contrast use. Lung Bases: The heart is not enlarged. Patchy ground-glass opacities are noted in the visualized shannan g bases, most pronounced in the left lung base. Liver: Hepatic steatosis. Hepatomegaly. Patchy hypodensities suggested along the gallbladder fossa. Gallbladder and Biliary Tree: Cholelithiasis. Mild pericholecystic fluid. Spleen: Unremarkable Pancreas: The pancreas is grossly normal in appearance. Adrenal Glands: Unremarkable Kidneys: Kidneys are grossly normal without calculi or hydronephrosis. Bladder: Grossly unremarkable for degree of distention. Bowel: The stomach is grossly normal in appearance. Small bowel and colon are normal in caliber and d istribution. The appendix is not visualized; however, no secondary findings of acute appendicitis id entified. Ascites: Trace free pelvic fluid. Lymphadenopathy: No lymphadenopathy. Abdominal Wall and Mesentery: Diffuse anasarca. Vasculature: The visualized abdominal aorta is normal in size and caliber. Evaluation of abdominal a nd pelvic vessels is limited due to lack of intravenous contrast. Pelvic Organs: Rounded mass along the posterior wall of the uterus measuring 5.7 cm, probably a fibro id. Additional calcified fibroid noted. Musculoskeletal: No aggressive focal bony lesions, acute fractures or dislocation. IMPRESSION: 1. No acute fracture. 2. Cholelithiasis with mild pericholecystic fluid, which could be seen with cholecystitis. Gallbladd er ultrasound can be obtained for further evaluation if clinically indicated. 3. Hepatic steatosis and hepatomegaly. Hepatitis not excluded in the appropriate clinical setting. 4. Patchy ground-glass airspace disease in the visualized lung bases, could represent pneumonia. 5. Suggestion of uterine fibroids, including a probable 5.7 cm subserosal fibroid along the posterior uterine wall. Radiation optimization: All CT scans at this facility use at least one of these dose optimization geno hniques: automated exposure control mA and/or kV adjustment per patient size (includes targeted exam s where dose is matched to clinical indication) or iterative reconstruction.
[2024-06-14] MEDS: cefTRIAXone 1GM/50ML D5W 50 ML IV SCH (09:54)
[2024-06-14] MEDS: FUROSEMIDE 20 MG/2 ML VIAL IV SCH (09:59)
[2024-06-14] MEDS ORDERED: levoFLOXacin 750MG 150 ML IV ONE (14:00)
--- NOTE | 2024-06-14 14:08 | DVHPN2 ---
Subjective update - 06/14-patient is feeling mildly improved, bruising on abdomen is not worsening,. Sore throat and hoarseness of voice continues. Afebrile. Labs are looking mildly improved hemoglobin and thrombocytopenia improving. Workup and lab pending for still incoming. -06/13 - pt had recent URI, then feeling weak, recently had a fall on knees in bathroom, but mild bruising in right flank or periumbilcl region. took toradol which caused brusing to onset, shes calling it a allergic reaction. she denies any bleeding from any orifices. denies alcohol. she has severe sore throat. Reviewed: H&P Changes from previous H/P or p: No Changes General: Per HPI Objective Vitals Vital Signs Date Time Temp Pulse Resp B/P (MAP) Pulse Ox O2 Delivery O2 Flow Rate FiO2 06/14/24 09:59 155/88 06/14/24 09:31 112 18 100 06/14/24 09:23 Room Air 06/14/24 09:23 0 21 06/14/24 09:00 98.4 98.4 Intake/Output Intake and Output 06/14/24 07:00 Intake Total 650 ml Output Total 0 ml Balance 650 ml Intake Oral 0 ml IV Total 50 ml Blood Product 600 ml Output Urine Total 0 ml Exam GEN: Healthy appearing, well-developed, under mild distress due to symptoms HEENT: NC/AT; MMM. Hoarse voice. CV: RRR, no m/r/g. LUNGS: CTAB, no w/r/c. ABD: Soft, NT/ND, NBS, no masses or organomegaly. Bruising on periumbilical well lower quadrant region. EXT: skin Warm, well perfused. no rashes. No clubbing, cyanosis, or edema. P itting edema 1 to 2+ up to dior NEURO: Ambulating with no limitations. No focal deficits. Medications Current Medications Medications Dose Ordered Sig/Bárbara Route Start Time Stop Time Status Last Admin Dose Admin Albuterol 2.5 mg Q4HPRN PRN NEB 06/13/24 06:45 06/14/24 09:23 2.5 MG Ipratropium [place] 0.5 mg Q4HPRN PRN NEB 06/13/24 06:45 06/14/24 09:23 0.5 MG Acetaminophen/ Hydrocodone Bitart 1 tab Q4HP PRN PO 06/13/24 06:45 Ondansetron HCl 4 mg Q4HP PRN IV 06/13/24 06:45 Acetaminophen 650 mg Q6HP PRN PO 06/13/24 06:45 06/13/24 23:18 650 MG Diphenhydramine HCl 25 mg Q6HP PRN IV 06/13/24 06:45 06/13/24 11:41 25 MG Methylprednisolone Sodium Succinate 40 mg Q8HR IV 06/13/24 14:00 06/14/24 06:04 40 MG Famotidine 20 mg DAILY IV 06/13/24 10:00 06/14/24 09:54 20 MG Ampicillin Sodium/ Sulbactam Sodium 3 gm/Sodium Chloride 100 ml @ 100 mls/hr Q6H IV 06/14/24 01:30 06/14/24 09:53 100 MLS/HR Furosemide 20 mg BIDD IV 06/14/24 08:00 06/14/24 09:59 20 MG Levofloxacin/ Dextrose 150 ml @ 100 mls/hr DAILY IV 06/15/24 10:00 UNV Laboratory Results Laboratory Tests 06/14/24 03:55 Chemistry Test 06/14/24 03:55 Albumin 3.7 g/dL (3.2-4.8) Calcium Level 9.0 mg/dL (8.7-10.4) Total Protein 8.7 g/dL (5.7-8.2) H LFT Test 06/14/24 03:55 Alanine Aminotransferase (ALT) 26 U/L (7-40) Alkaline Phosphatase 124 U/L (46-116) H Aspartate Amino Transferase (AST) 90 U/L (13-40) H Direct Bilirubin 3.2 mg/dL (<0.3) H Total Bilirubin 5.0 mg/dL (0.2-1.0) H Urinalysis Test 06/13/24 11:17 Urine Color Yellow (Yellow) Urine Clarity Clear (Clear) Urine pH 6.5 (5.0-9.0) Urine Specific [place] 1.011 (1.001-1.035) Urine Protein 2+ (Negative) H Urine Ketones 1+ (Negative) H Urine Blood 3+ /uL (Negative) H Urine Nitrite Negative (Negative) Urine Bilirubin 1+ (Negative) H Urine Urobilinogen 6 mg/dL (Negative) Urine Leukocyte Esterase Negative /uL (Negative) Urine RBC <1 /hpf (0 - 4) Urine WBC <1 /hpf (0 - 5) Urine Squamous Epithelial Cells Few /hpf (<5) Urine Bacteria None seen /hpf (None Seen) Urine Glucose Normal mg/dL (Normal) Labs and/or images reviewed: Labs reviewed by me, Image(s) reviewed by me Assessment/Plan Assessment/Plan 06/14-patient is feeling mildly improved, bruising on abdomen is not worsening,. Sore throat and hoarseness of voice continues. Afebrile. Labs are looking mildly improved hemoglobin and thrombocytopenia improving. Workup and lab pending for still incoming. Continue treatment with antibiotics, lab workup, steroids, diuresis slow,. Anemia , severe microcytic Thrombocytopenia Bicytopenia Upper respiratory infection Acidosis Bruising in abdomen - patient presenting with bruising, multiple respiratory symptoms --labs showing bicytopenia with anemia and thrombocytopenia. Anemia requiring 2 units PRBC -CT abdomen w/o con - 06/14 - to rule out retroperitoneal bleed- CT without retroperitoneal bleed, but showing possible pneumonia, coli cystitis, large fibroids in uterus. -status post 2 PRBC. Recheck CBC -workup anemia (given blood, cant do iron panel) -hematology consult Neutrophilia Sore throat - Patient presented 2 weeks of URI. With neutrophilia -check strep throat rapid, hold off Unasyn patient has penicillin allergy we will try levofloxacin. Hyponatremia - work-up with Moises uOsm.. Hypovolemic versus hypervol. Patient had recent URI, but also signs of volume overload. - And workup with urine sodium, urine osmoles - appears volume overload we will try slow Lasix. Elevated LFTs transaminitis Hyperbilirubinemia -on initial labs on admit, noting mild elevation in LFT and ALP. T bili noted to be elevated as well. - GGT high, D bili elevated, CT abdomen and pelvis without any acute process. Acute on chronic diastolic heart failure possible Pitting edema bilateral - BNP elevated, bilateral pitting edema, but no rales. - echo pending - slow diuresis trial Diet cardiac DVT prophylaxis-SCDs GI prophylaxis tolerating diet Med tele Full code Plan discussed with: Patient My Orders Orders - GONZALO GREGORY MD Procedure Category Date Status Time Urine Sodium LAB 06/14/24 Logged 04:00 Osmolality Urine LAB 06/14/24 Logged 04:00 Haptoglobin LAB 06/14/24 In Process 04:00 Rapid Strep Screen - LAB 06/14/24 Logged Throat 04:00 Ampicillin & PHA 06/14/24 In Process Sulbactam Sodium 01:30 Ct Ab Pel Wo Con-No CT 06/14/24 Resulted Oral Or Iv 07:00 Stool Occult Blood LAB 06/14/24 Logged 04:00 Furosemide Injection PHA 06/14/24 In Process (Lasix Injection) 08:00 Levofloxacin 750mg PHA 06/14/24 Logged (Levaquin) 14:00 Levofloxacin 750mg PHA 06/15/24 Logged (Levaquin) 10:00 Epinephrine Hcl PHA 06/14/24 Logged (Racenephrine) 14:15 Date of Service: Jun 14, 2024 Billing Provider: GONZALO GREGORY MD Common Visit Codes: [id number] INP/OBS CARE(HIGH) GONZALO GREGORY MD Jun 14, 2024 14:08
[2024-06-14] MEDS ORDERED: EPINEPHrine HCL 0.5 ML NEB NEB ONE (14:15)
--- NOTE | 2024-06-14 14:50 | DVHSR ---
APPROVED REPORT EXAM: Two-dimensional and M-mode echocardiogram with Doppler and color Doppler. Blood Pressure: 150/90 mmHg INDICATION Volume overload RISK FACTORS Height: 70, Weight: 250 DIMENSIONS LVDd5.4 (3.8-5.7cm)LA (2D)3.7 (1.9-4.0cm)Aortic Root3.0 (2.0-3.7cm) LVDs3.7 (2.5-4.0cm)LA (MM) (1.9-4.0cm)Aortic Cusp Exc1.7 (1.5-2.0cm) EF (%) 60.0 (55-70%)Rt. Atrium (1.9-4.0cm)Asc. Aorta cm IVSd0.9 (0.7-1.1cm)RV (D) (1.8-2.4cm) PWd1.2 (0.7-1.1cm) Mitral Valve MitralMitral Stenosis E/A ratio0.02D MVAcm2 Aortic Valve Aortic ValveAortic Stenosis LVOT Diameter2.0 (1.8-2.4cm)Doppler AVAcm2 Pulmonic Valve V21.54m/s Tricuspid Valve TR Velocity3.53m/s [id number] LEFT VENTRICLE The left ventricle is normal size. There is mild asymmetric left ventricular hypertrophy. The left ventricle is normal in structure and function, LVEF is 55-60%. Normal diastolic function. Normal wall motion. RIGHT VENTRICLE The right ventricle is grossly normal size. The right ventricular systolic function is normal. ATRIA The left atrial size is normal. The right atrium size is normal. MITRAL VALVE The mitral valve is grossly normal. Mitral regurgitation is mild. PULMONIC VALVE The pulmonic valve is not well visualized. TRICUSPID VALVE The tricuspid valve is grossly normal. There is mild to moderate tricuspid regurgitation. AORTIC VALVE The aortic valve is trileaflet. No aortic regurgitation is present. GREAT VESSELS The aortic root is normal size. PERICARDIAL EFFUSION No evidence of pericardial effusion. Other Information Technically limited study due to body habitus. Patient moving during exam. Conclusion The left ventricle is normal size. There is mild asymmetric left ventricular hypertrophy. The left ve ntricle is normal in structure and function, LVEF is 55-60%. Normal diastolic function. Normal wall m otion. The right ventricle is grossly normal size. The right ventricular systolic function is normal. The left and right atrial size is normal. There is mild to moderate tricuspid regurgitation. IVC is borderline dilated. No evidence of pericardial effusion.
[2024-06-15] VITALS (10 sets, daily range): BP systolic 133–159; BP diastolic 78–106; PULSE 95–124; RESP 18–22; TEMP 98.1–98.5; O2SAT 90–97
[2024-06-15 07:34] LABS: Alanine Aminotransferase 35 U/L (7-40); Albumin 3.8 g/dL (3.2-4.8); Alkaline Phosphatase 116 U/L (46-116); Anion Gap 12 (5-15); Blood Urea Nitrogen 23 mg/dL (9-23); Calcium 9.1 mg/dL (8.7-10.4); Carbon Dioxide 21 mmol/L (20-31); Chloride 102 mmol/L (98-107); Potassium 3.6 mmol/L (3.5-5.1)
[2024-06-15 07:37] LABS: Basophils # (auto) 0 10 ^3/uL (0-0.2); Basophils % (auto) 0.1 % (0.0-2.0); Eosinophils # (auto) 0 10 ^3/uL (0-0.8); Hematocrit 25.9 % (36.0-46.0); Hemoglobin 8.2 g/dL (12.2-16.2); Lymphocytes # (auto) 0.6 10 ^3/uL (0.4-5.4); Lymphocytes % (auto) 4.1 % (10.0-50.0); Mean Corpuscular Hemoglobin 25.4 pg (28.0-32.0); Mean Corpuscular Hgb Conc. 31.6 g/dL (32.0-36.0); Mean Corpuscular Volume 80.3 fL (80.0-100.0); Monocytes # (auto) 0.6 10 ^3/uL (0-1.3); Monocytes % (auto) 4.5 % (0.0-12.0); Neutrophils # (auto) 12.6 10 ^3/uL (1.6-8.6); Neutrophils % (auto) 91.3 % (37.0-80.0); Nucleated Red Blood Cells % 0.2 %; Platelet Count (auto) 156 10^3/uL (140-450); Red Blood Cells 3.23 10^6/uL (4.0-5.20); Red Cell Distribution Width 22.4 % (11.8-14.3); White Blood Cell 13.8 10^3/uL (4.4-10.8)
[2024-06-15 07:47] LABS: Aspartate Aminotransferase 80 U/L (13-40); Bilirubin, Total 4.6 mg/dL (0.2-1.0); Glucose 135 mg/dL (74-106); Sodium 135 mmol/L (136-145); Total Protein 8.4 g/dL (5.7-8.2)
[2024-06-15 09:18] LABS: Hepatitis B Surface Antigen Negative (Negative)
[2024-06-15 09:45] LABS: Hepatitis A Ab IgM Negative; Hepatitis B Core IgM Negative (Negative); Hepatitis C Antibody Negative (Negative)
[2024-06-15] MEDS ORDERED: levoFLOXacin 750MG 150 ML IV SCH (10:00)
[2024-06-15] MEDS: CLINDAMYCIN 600MG IV 50 ML IV ONE (11:51)
[2024-06-15] MEDS: CLINDAMYCIN 600MG IV 50 ML IV SCH (14:00)
[2024-06-15] MEDS ORDERED: LEVO750T40 PO (14:05)
--- NOTE | 2024-06-15 14:12 | DVHDS2 ---
Discharge Summary Date of Admission Jun 13, 2024 at 06:36 Date of Discharge: Jun 15, 2024 Labs/Diagnostic Data: Laboratory Results Test 06/15/24 06:13 06/14/24 03:55 06/13/24 20:55 06/13/24 11:17 White Blood Count 13.8 10^3/uL (4.4-10.8) Red Blood Count 3.23 10^6/uL (4.0-5.20) Hemoglobin 8.2 g/dL (12.2-16.2) Hematocrit 25.9 % (36.0-46.0) Mean Corpuscular Volume 80.3 fL (80.0-100.0) Mean Corpuscular Hemoglobin 25.4 pg (28.0-32.0) Mean Corpuscular Hemoglobin Concent 31.6 g/dL (32.0-36.0) Red Cell Distribution Width 22.4 % (11.8-14.3) Platelet Count 156 10^3/uL (140-450) Mean Platelet Volume 8.4 fL (6.9-10.8) Neutrophils (%) (Auto) 91.3 % (37.0-80.0) Lymphocytes (%) (Auto) 4.1 % (10.0-50.0) Monocytes (%) (Auto) 4.5 % (0.0-12.0) Eosinophils (%) (Auto) 0.0 % (0.0-7.0) Basophils (%) (Auto) 0.1 % (0.0-2.0) Neutrophils # (Auto) 12.6 10 ^3/uL (1.6-8.6) Lymphocytes # (Auto) 0.6 10 ^3/uL (0.4-5.4) Monocytes # (Auto) 0.6 10 ^3/uL (0-1.3) Eosinophils # (Auto) 0 10 ^3/uL (0-0.8) Basophils # (Auto) 0 10 ^3/uL (0-0.2) Nucleated Red Blood Cells 0.2 % Sodium Level 135 mmol/L (136-145) Potassium Level 3.6 mmol/L (3.5-5.1) Chloride Level 102 mmol/L (98-107) Carbon Dioxide Level 21 mmol/L (20-31) Anion Gap 12 (5-15) Blood Urea Nitrogen 23 mg/dL (9-23) Creatinine 1.00 mg/dL (0.550-1.02) Glomerular Filtration Rate Calc 74 mL/min (>90) BUN/Creatinine Ratio 23.0 (10.0-20.0) Serum Glucose 135 mg/dL (74-106) Calcium Level 9.1 mg/dL (8.7-10.4) Total Bilirubin 4.6 mg/dL (0.2-1.0) Aspartate Amino Transferase (AST) 80 U/L (13-40) Alanine Aminotransferase (ALT) 35 U/L (7-40) Alkaline Phosphatase 116 U/L (46-116) Total Protein 8.4 g/dL (5.7-8.2) Albumin 3.8 g/dL (3.2-4.8) Platelet Estimate Decreased Anisocytosis (manual) Slight Microcytosis Slight Stomatocytes Few Reticulocyte Count (auto) 3.81 % (0.5-1.5) Lactic Acid Level 1.4 mmol/L (0.4-2.0) Direct Bilirubin 3.2 mg/dL (<0.3) Gamma Glutamyl Transpeptidase 410 U/L (<38) Lactate Dehydrogenase 376 U/L (120-246) SARS-CoV-2 Antigen (Rapid) Negative (NEGATIVE) Urine Color Yellow (Yellow) Urine Clarity Clear (Clear) Urine pH 6.5 (5.0-9.0) Urine Specific [place] 1.011 (1.001-1.035) Urine Protein 2+ (Negative) Urine Ketones 1+ (Negative) Urine Blood 3+ /uL (Negative) Urine Nitrite Negative (Negative) Urine Bilirubin 1+ (Negative) Urine Urobilinogen 6 mg/dL (Negative) Urine Leukocyte Esterase Negative /uL (Negative) Urine RBC <1 /hpf (0 - 4) Urine WBC <1 /hpf (0 - 5) Urine Squamous Epithelial Cells Few /hpf (<5) Urine Bacteria None seen /hpf (None Seen) Urine Glucose Normal mg/dL (Normal) Urine Opiates Screen Neg (NEGATIVE) Urine Fentanyl Screen Neg (NEGATIVE) Urine Barbiturates Screen Neg (NEGATIVE) Urine Phencyclidine Screen Neg (NEGATIVE) Urine Amphetamines Screen Neg (NEGATIVE) Urine Benzodiazepines Screen Neg (NEGATIVE) Urine Cocaine Screen Neg (NEGATIVE) Urine Cannabinoids Screen Neg (NEGATIVE) Test 06/13/24 06:15 06/13/24 05:15 06/13/24 00:00 Troponin I High Sensitivity < 3 ng/L (</=34) Plasma/Serum Blood Alcohol < 3.0 mg/dL (<10) Hepatitis A IgM Antibody Negative Hepatitis B Surface Antigen Negative (Negative) Hepatitis B Core IgM Antibody Negative (Negative) Hepatitis C Antibody Negative (Negative) Hypochromasia (manual) Slight Prothrombin Time 14.1 sec (9.3-11.8) Prothrombin Time INR 1.36 (0.9-1.15) Activated Partial Thromboplast Time 29.9 SEC (24.5-34.5) B-Type Natriuretic Peptide 349.98 pg/mL (0-100) Beta HCG, Quantitative 0.6 mIU/mL (1.5-4.2) Influenza Type A Antigen Negative (Negative) Influenza Type B Antigen Negative (Negative) Other Laboratory Tests 06/15/24 06:13 Brief Hx & Hospital Course: severe symptomatic anemia, thrombocytopenia and acute hepatic insult from acute viral syndrome - levaquin 750 daily x 7 days - conservative management - DC clinic to repeat cbc cmp (ensure improving Hb, platelet, TBili, LFTs) - social consulted for setup PCP. - can continue other home medications. ok to leave work for 1x week until improving weakness/ URI. return to ED if notice worsening shortness breath, jaundice/yellowing skin, weakness. Condition at Discharge: Fair Final Diagnosis/Problems List severe symptomatic anemia, thrombocytopenia and acute hepatic insult from acute viral syndrome Discharge Disposition: Home Discharge Instruct/Medications Diet: Regular Activity: No Restrictions, As Tolerated Follow Up/Referral: PCP Medications: below Discharge Statement: "Patient was advised to return to the ER or call 911 if any headaches, dizziness, shortness of breath, chest pain, abdominal pain, bleeding, fevers, or worsening of medical condition. Patient was counseled about treatment plan, medications, possible side effects, patientverbalized understanding. All questions were answered to the best of my ability. This discharge took greater then 30 minutes in planning, reviewing documentation, counseling the patient, and discussing with other team members." ASSESSMENT ASSESSMENT Assessment severe symptomatic anemia, thrombocytopenia and acute hepatic insult from acute viral syndrome GONZALO GREGORY MD Jun 15, 2024 14:12
[2024-06-15 18:27] LABS: Chloride 105 mmol/L (98-107); Potassium 3.6 mmol/L (3.5-5.1); Sodium 137 mmol/L (136-145)
[2024-06-15 18:28] LABS: Anion Gap 10 (5-15); Calcium 8.9 mg/dL (8.7-10.4); Carbon Dioxide 22 mmol/L (20-31)
[2024-06-15 18:33] LABS: BUN/Creatinine Ratio 25.5 (10.0-20.0)
[2024-06-15] MEDS: MULTIPLE VITAMIN TAB PO ONE (18:43)
[2024-06-15 18:45] LABS: Blood Urea Nitrogen 28 mg/dL (9-23); Glucose 140 mg/dL (74-106)
[2024-06-15] MEDS: LORazepam 2MG/ML-1ML VIAL IV ONE (18:49)
[2024-06-15] MEDS: THIAMINE 100mg/ml INJ (200mg/2ml VIAL) IV ONE (18:49)
[2024-06-15] MEDS: FOLIC ACID 1 MG in D5W 5% 50 ML INJ SCH (19:00)
--- NOTE | 2024-06-15 20:12 | DVHPN2 ---
Subjective update - 06/15 - near discharge today, labs improving. New discharge patient's starts to get confused, aggressive, agitated, delirious, possible visual hallucinations. She is given oxygen and appears to improve a little bit. Upon revisiting the patient, she does endorse that she drinks1 bottle of vodka daily. This is likely alcohol withdrawal. We will do a small workup but mostly new diagnosis of alcohol. Alcohol is probably also causing everything else and all the other lab abnormalities seen - 06/14-patient is feeling mildly improved, bruising on abdomen is not worsening,. Sore throat and hoarseness of voice continues. Afebrile. Labs are looking mildly improved hemoglobin and thrombocytopenia improving. Workup and lab pending for still incoming. -06/13 - pt had recent URI, then feeling weak, recently had a fall on knees in bathroom, but mild bruising in right flank or periumbilcl region. took toradol which caused brusing to onset, shes calling it a allergic reaction. she denies any bleeding from any orifices. denies alcohol. she has severe sore throat. Reviewed: H&P Changes from previous H/P or p: No Changes General: Per HPI Objective Vitals Vital Signs Date Time Temp Pulse Resp B/P (MAP) Pulse Ox O2 Delivery O2 Flow Rate FiO2 06/15/24 17:00 98.1 109 20 133/78 (96) 97 98.1 06/15/24 10:00 Room Air* 0 21 Intake/Output Intake and Output 06/15/24 06:59 Intake Total 1200 ml Output Total 2 ml Balance 1198 ml Intake Oral 1050 ml IV Total 150 ml Output Urine Total 2 ml # Bowel Movements 1 Exam GEN: Healthy appearing, well-developed, under mild distress due to symptoms HEENT: NC/AT; MMM. Hoarse voice. CV: RRR, no m/r/g. LUNGS: CTAB, no w/r/c. ABD: Soft, NT/ND, NBS, no masses or organomegaly. Bruising on periumbilical well lower quadrant region. EXT: skin Warm, well perfused. no rashes. No clubbing, cyanosis, or edema. P itting edema 1 to 2+ up to dior NEURO: Ambulating with no limitations. No focal deficits. CIWA MORE THAN 8, hallucinating Medications Current Medications Medications Dose Ordered Sig/Bárbara Route Start Time Stop Time Status Last Admin Dose Admin Acetaminophen/ Hydrocodone Bitart 1 tab Q4HP PRN PO 06/13/24 06:45 Ondansetron HCl 4 mg Q4HP PRN IV 06/13/24 06:45 Acetaminophen 650 mg Q6HP PRN PO 06/13/24 06:45 06/13/24 23:18 650 MG Diphenhydramine HCl 25 mg Q6HP PRN IV 06/13/24 06:45 06/13/24 11:41 25 MG Methylprednisolone Sodium Succinate 40 mg Q8HR IV 06/13/24 14:00 06/15/24 18:48 40 MG Famotidine 20 mg DAILY IV 06/13/24 10:00 06/15/24 09:11 20 MG Clindamycin Phosphate 50 ml @ 50 mls/hr Q8HR IV 06/15/24 14:00 Lorazepam 1 mg Q6HP PRN IV 06/15/24 16:45 Thiamine HCl 100 mg DAILY PO 06/16/24 10:00 Folic Acid 1 mg DAILY PO 06/16/24 10:00 Multivitamins 1 tab DAILY PO 06/16/24 10:00 Lorazepam 1 mg Q2HPRN PRN IV 06/15/24 16:45 Laboratory Results Laboratory Tests 06/15/24 06:13 06/15/24 18:09 Chemistry Test 06/15/24 06:13 06/15/24 18:09 Albumin 3.8 g/dL (3.2-4.8) Calcium Level 9.1 mg/dL (8.7-10.4) 8.9 mg/dL (8.7-10.4) Total Protein 8.4 g/dL (5.7-8.2) H LFT Test 06/15/24 06:13 Alanine Aminotransferase (ALT) 35 U/L (7-40) Alkaline Phosphatase 116 U/L (46-116) Aspartate Amino Transferase (AST) 80 U/L (13-40) H Total Bilirubin 4.6 mg/dL (0.2-1.0) H HgA1c, TSH Test 06/15/24 18:09 Thyroid Stimulating Hormone (TSH) 1.49 uIU/mL (0.55-4.78) Urinalysis Test 06/13/24 11:17 Urine Color Yellow (Yellow) Urine Clarity Clear (Clear) Urine pH 6.5 (5.0-9.0) Urine Specific [place] 1.011 (1.001-1.035) Urine Protein 2+ (Negative) H Urine Ketones 1+ (Negative) H Urine Blood 3+ /uL (Negative) H Urine Nitrite Negative (Negative) Urine Bilirubin 1+ (Negative) H Urine Urobilinogen 6 mg/dL (Negative) Urine Leukocyte Esterase Negative /uL (Negative) Urine RBC <1 /hpf (0 - 4) Urine WBC <1 /hpf (0 - 5) Urine Squamous Epithelial Cells Few /hpf (<5) Urine Bacteria None seen /hpf (None Seen) Urine Glucose Normal mg/dL (Normal) Labs and/or images reviewed: Labs reviewed by me, Image(s) reviewed by me Assessment/Plan Assessment/Plan - 06/15 - near discharge today, labs improving. New discharge patient's starts to get confused, aggressive, agitated, delirious, possible visual hallucinations. She is given oxygen and appears to improve a little bit. Upon revisiting the patient, she does endorse that she drinks1 bottle of vodka daily. This is likely alcohol withdrawal. We will do a small workup but mostly new diagnosis of alcohol. Alcohol is probably also causing everything else and all the other lab abnormalities seen Anemia , severe microcytic Under operative anemia Thrombocytopenia Bicytopenia Upper respiratory infection Acidosis Bruising in abdomen - patient presenting with bruising, multiple respiratory symptoms --labs showing bicytopenia with anemia and thrombocytopenia. Anemia requiring 2 units PRBC -CT abdomen w/o con - 06/14 - to rule out retroperitoneal bleed- CT without retroperitoneal bleed, but showing possible pneumonia, coli cystitis, large fibroids in uterus. - RP I less than, under productive anemia ; - condition likely due to alcohol abuse -status post 2 PRBC. Recheck CBC daily Alcohol Withdrawal Alcohol dependence/abuse -06/15 near discharge, patient is withdrawing CIWA more than. -start CIWA protocol -Librium taper -thiamine and folate resuscitation plus banana bag Neutrophilia Sore throat - Patient presented 2 weeks of URI. With neutrophilia -check strep throat rapid, hold off Unasyn patient has penicillin allergy we will try levofloxacin. Hyponatremia - work-up with Moises uOsm.. Hypovolemic versus hypervol. Patient had recent URI, but also signs of volume overload. - And workup with urine sodium, urine osmoles - appears volume overload we will try slow Lasix. Elevated LFTs transaminitis Hyperbilirubinemia -on initial labs on admit, noting mild elevation in LFT and ALP. T bili noted to be elevated as well. - jaundice and LFTs likely from alcohol abuse - GGT high, D bili elevated, CT abdomen and pelvis without any acute process. Acute on chronic diastolic heart failure possible Pitting edema bilateral - BNP elevated, bilateral pitting edema, but no rales. - echo pending - slow diuresis trial Diet ice chips and npo DVT prophylaxis-lovenox GI prophylaxis PPI IV daily Med tele Full code Plan discussed with: Patient My Orders Orders - GONZALO GREGORY MD Procedure Category Date Status Time * Lag Screwer CONS 06/15/24 Transmitted Consult Clindamycin 600mg Iv PHA 06/15/24 In Process (Cleocin Iv) 14:00 * Lag Screwer CONS 06/15/24 Transmitted Consult Lorazepam 2mg/Ml Inj PHA 06/15/24 In Process (Ativan Inj) 16:45 Thiamine Tab PHA 06/16/24 In Process 10:00 Folic Acid Tablet PHA 06/16/24 In Process 10:00 Multiple Vitamin PHA 06/16/24 In Process Tablet (Mvi Tab) 10:00 Lorazepam 2mg/Ml Inj PHA 06/15/24 In Process (Ativan Inj) 16:45 Etoh Withdrawal RAFAEL 06/15/24 In Process Assessment 16:37 Etoh Withdrawal RAFAEL 06/15/24 In Process Assessment 16:37 RPR LAB 06/15/24 In Process 16:40 Folic Acid... PHA 06/15/24 In Process 23:00 Chlordiazepoxide Hcl PHA 06/15/24 Logged Capsule (Librium Ca 20:15 Chlordiazepoxide Hcl PHA 06/16/24 Logged Capsule (Librium Ca 10:00 Chlordiazepoxide Hcl PHA 06/17/24 Logged Capsule (Librium Ca 10:00 Chlordiazepoxide Hcl PHA 06/18/24 Logged Capsule (Librium Ca 07:00 Date of Service: Jun 15, 2024 Billing Provider: GONZALO GREGORY MD Common Visit Codes: [id number] INP/OBS CARE(HIGH) GONZALO GREGORY MD Jun 15, 2024 20:12
[2024-06-15] MEDS: chlordiazePOXIDE HCL 25 MG CAP PO SCH (20:54)
[2024-06-15] MEDS: LORazepam 2MG/ML-1ML VIAL IV PRN (21:13)
[2024-06-16] VITALS (10 sets, daily range): BP systolic 101–155; BP diastolic 65–102; PULSE 84–107; RESP 17–22; TEMP 98–99.1; O2SAT 95–97
[2024-06-16] MEDS: LORazepam 2MG/ML-1ML VIAL IV PRN ×2 (00:30→09:23)
[2024-06-16] MEDS: FOLIC ACID 1 MG, MULTIPLE VITAMIN 10 ML, MAGNESIUM SULF SDV 50% 8 MEQ, THIAMINE INJ 100... INJ ONE (00:57)
[2024-06-16] MEDS ORDERED: LORazepam 2MG/ML-1ML VIAL IV PRN (08:45)
[2024-06-16] MEDS ORDERED: LORazepam 2MG/ML-1ML VIAL IV ONE (08:45)
[2024-06-16] MEDS: THIAMINE HCL 100 MG TAB PO SCH (10:00)
[2024-06-16] MEDS: FOLIC ACID 1 MG TAB PO SCH (10:00)
[2024-06-16] MEDS: chlordiazePOXIDE HCL 25 MG CAP PO SCH (10:00)
[2024-06-16] MEDS: MULTIPLE VITAMIN TAB PO SCH (10:00)
--- NOTE | 2024-06-16 10:14 | DVH ---
CHEST RADIOGRAPH Indication: sob Technique: Single frontal view of the chest was obtained Comparison: XY CHEST PORTABLE on DOS: 06/13/24 FINDINGS: Lines and Tubes: None Lungs: Low lung volumes. No focal consolidation. Pleura: No effusion.No pneumothorax. Cardiomediastinal contours: Cardiomegaly. Pulmonary vasculature: Within normal limits. Bones: No acute osseous abnormality. IMPRESSION: 1. No acute cardiopulmonary disease. 2. Cardiomegaly. HS:Y
[2024-06-16 11:10] LABS: Basophils # (auto) 0 10 ^3/uL (0-0.2); Eosinophils # (auto) 0 10 ^3/uL (0-0.8); Lymphocytes # (auto) 0.4 10 ^3/uL (0.4-5.4); Lymphocytes % (auto) 3.9 % (10.0-50.0); Monocytes # (auto) 0.7 10 ^3/uL (0-1.3)
[2024-06-16 11:12] LABS: Hematocrit 23.6 % (36.0-46.0); Hemoglobin 7.3 g/dL (12.2-16.2); Mean Corpuscular Hemoglobin 25.8 pg (28.0-32.0); Mean Corpuscular Hgb Conc. 31.1 g/dL (32.0-36.0); Mean Corpuscular Volume 83.2 fL (80.0-100.0); Monocytes % (auto) 6.8 % (0.0-12.0); Neutrophils # (auto) 9.8 10 ^3/uL (1.6-8.6); Neutrophils % (auto) 89.3 % (37.0-80.0); Nucleated Red Blood Cells % 0.3 %; Platelet Count (auto) 149 10^3/uL (140-450); Red Blood Cells 2.83 10^6/uL (4.0-5.20); Red Cell Distribution Width 23.1 % (11.8-14.3)
[2024-06-16 11:22] LABS: Alanine Aminotransferase 36 U/L (7-40); Albumin 3.4 g/dL (3.2-4.8); Alkaline Phosphatase 93 U/L (46-116); Anion Gap 10 (5-15); BUN/Creatinine Ratio 30.9 (10.0-20.0); Calcium 8.7 mg/dL (8.7-10.4); Carbon Dioxide 23 mmol/L (20-31); Chloride 104 mmol/L (98-107); Magnesium 1.8 mg/dL (1.6-2.6); Potassium 3.6 mmol/L (3.5-5.1); Sodium 137 mmol/L (136-145)
[2024-06-16 11:23] LABS: Phosphorus 4.6 mg/dL (2.4-5.1); Total Protein 7.7 g/dL (5.7-8.2)
[2024-06-16 11:32] LABS: Aspartate Aminotransferase 68 U/L (13-40); Bilirubin, Total 3.5 mg/dL (0.2-1.0); Blood Urea Nitrogen 29 mg/dL (9-23); Glucose 131 mg/dL (74-106)
--- NOTE | 2024-06-16 20:09 | DVHPN2 ---
Subjective update -06/16 patients etoh w/d contnues. she remains ciwa> 8 requiring ativan doses . patietn is wth sitter, requiring transient use of physical restraints. keeping tele and continues pulse ox. close monitoring continues. - 06/15 - near discharge today, labs improving. New discharge patient's starts to get confused, aggressive, agitated, delirious, possible visual hallucinations. She is given oxygen and appears to improve a little bit. Upon revisiting the patient, she does endorse that she drinks1 bottle of vodka daily. This is likely alcohol withdrawal. We will do a small workup but mostly new diagnosis of alcohol. Alcohol is probably also causing everything else and all the other lab abnormalities seen - 06/14-patient is feeling mildly improved, bruising on abdomen is not worsening,. Sore throat and hoarseness of voice continues. Afebrile. Labs are looking mildly improved hemoglobin and thrombocytopenia improving. Workup and lab pending for still incoming. -06/13 - pt had recent URI, then feeling weak, recently had a fall on knees in bathroom, but mild bruising in right flank or periumbilcl region. took toradol which caused brusing to onset, shes calling it a allergic reaction. she denies any bleeding from any orifices. denies alcohol. she has severe sore throat. Reviewed: H&P Changes from previous H/P or p: No Changes General: Per HPI Objective Vitals Vital Signs Date Time Temp Pulse Resp B/P (MAP) Pulse Ox O2 Delivery O2 Flow Rate FiO2 06/16/24 16:40 98.0 103 19 141/80 (100) 97 98.0 06/16/24 10:30 Nasal Cannula 3.0 06/16/24 10:30 32 Intake/Output Intake and Output 06/16/24 07:00 Intake Total 900 ml Output Total 0 ml Balance 900 ml Intake Oral 900 ml Output Urine Total 0 ml # Voids 5 # Bowel Movements 1 Exam GEN: Healthy appearing, well-developed, under mild distress due to symptoms HEENT: NC/AT; MMM. Hoarse voice. CV: RRR, no m/r/g. LUNGS: CTAB, no w/r/c. ABD: Soft, NT/ND, NBS, no masses or organomegaly. Bruising on periumbilical well lower quadrant region. EXT: skin Warm, well perfused. no rashes. No clubbing, cyanosis, or edema. P itting edema 1 to 2+ up to dior NEURO: Ambulating with no limitations. No focal deficits. CIWA MORE THAN 8, hallucinating Medications Current Medications Medications Dose Ordered Sig/Bárbara Route Start Time Stop Time Status Last Admin Dose Admin Acetaminophen/ Hydrocodone Bitart 1 tab Q4HP PRN PO 06/13/24 06:45 Ondansetron HCl 4 mg Q4HP PRN IV 06/13/24 06:45 Acetaminophen 650 mg Q6HP PRN PO 06/13/24 06:45 06/16/24 18:40 650 MG Diphenhydramine HCl 25 mg Q6HP PRN IV 06/13/24 06:45 06/16/24 07:21 25 MG Methylprednisolone Sodium Succinate 40 mg Q8HR IV 06/13/24 14:00 06/15/24 22:13 40 MG Famotidine 20 mg DAILY IV 06/13/24 10:00 06/15/24 09:11 20 MG Clindamycin Phosphate 50 ml @ 50 mls/hr Q8HR IV 06/15/24 14:00 06/15/24 22:13 50 MLS/HR Lorazepam 1 mg Q6HP PRN IV 06/15/24 16:45 06/15/24 21:13 1 MG Thiamine HCl 100 mg DAILY PO 06/16/24 10:00 Folic Acid 1 mg DAILY PO 06/16/24 10:00 Multivitamins 1 tab DAILY PO 06/16/24 10:00 Chlordiazepoxide HCl 50 mg Q12HR PO 06/16/24 10:00 06/16/24 22:01 Chlordiazepoxide HCl 25 mg Q12HR PO 06/17/24 10:00 06/17/24 22:01 Chlordiazepoxide HCl 25 mg QAM PO 06/18/24 07:00 06/18/24 07:01 Lorazepam 4 mg Q2HR PRN IV 06/16/24 09:15 06/16/24 09:23 4 MG Laboratory Results Laboratory Tests 06/16/24 10:05 Chemistry Test 06/16/24 10:05 Albumin 3.4 g/dL (3.2-4.8) Calcium Level 8.7 mg/dL (8.7-10.4) Magnesium Level 1.8 mg/dL (1.6-2.6) Phosphorus Level 4.6 mg/dL (2.4-5.1) Total Protein 7.7 g/dL (5.7-8.2) LFT Test 06/16/24 10:05 Alanine Aminotransferase (ALT) 36 U/L (7-40) Alkaline Phosphatase 93 U/L (46-116) Aspartate Amino Transferase (AST) 68 U/L (13-40) H Total Bilirubin 3.5 mg/dL (0.2-1.0) H Urinalysis Test 06/13/24 11:17 Urine Color Yellow (Yellow) Urine Clarity Clear (Clear) Urine pH 6.5 (5.0-9.0) Urine Specific [place] 1.011 (1.001-1.035) Urine Protein 2+ (Negative) H Urine Ketones 1+ (Negative) H Urine Blood 3+ /uL (Negative) H Urine Nitrite Negative (Negative) Urine Bilirubin 1+ (Negative) H Urine Urobilinogen 6 mg/dL (Negative) Urine Leukocyte Esterase Negative /uL (Negative) Urine RBC <1 /hpf (0 - 4) Urine WBC <1 /hpf (0 - 5) Urine Squamous Epithelial Cells Few /hpf (<5) Urine Bacteria None seen /hpf (None Seen) Urine Glucose Normal mg/dL (Normal) Labs and/or images reviewed: Labs reviewed by me, Image(s) reviewed by me Assessment/Plan Assessment/Plan -06/16 patients etoh w/d contnues. she remains ciwa> 8 requiring ativan doses . patietn is wth sitter, requiring transient use of physical restraints. keeping tele and continues pulse ox. close monitoring continues. Anemia , severe microcytic Under operative anemia Thrombocytopenia Bicytopenia Upper respiratory infection Acidosis Bruising in abdomen - patient presenting with bruising, multiple respiratory symptoms --labs showing bicytopenia with anemia and thrombocytopenia. Anemia requiring 2 units PRBC -CT abdomen w/o con - 06/14 - to rule out retroperitoneal bleed- CT without retroperitoneal bleed, but showing possible pneumonia, coli cystitis, large fibroids in uterus. - RPI less than, under productive anemia ; - condition likely due to alcohol abuse -status post 2 PRBC. Recheck CBC daily Alcohol Withdrawal Alcohol dependence/abuse -06/15 near discharge, patient is withdrawing CIWA more than. -start CIWA protocol -Librium taper -thiamine and folate resuscitation (sp banana bag ) Neutrophilia Sore throat - Patient presented 2 weeks of URI. With neutrophilia -check strep throat rapid, hold off Unasyn patient has penicillin allergy we will try clindamycin Hyponatremia - work-up with Moises uOsm.. Hypovolemic versus hypervol. Patient had recent URI, but also signs of volume overload. - And workup with urine sodium, urine osmoles - appears volume overload we will try slow Lasix. Elevated LFTs transaminitis Hyperbilirubinemia -on initial labs on admit, noting mild elevation in LFT and ALP. T bili noted to be elevated as well. - jaundice and LFTs likely from alcohol abuse - GGT high, D bili elevated, CT abdomen and pelvis without any acute process. volume overlaod due to etoh Cirrhosis Acute diastolic heart failure less likely Pitting edema bilateral - BNP elevated, bilateral pitting edema, but no rales. - echo: mild asymmetric left ventricular hypertrophy. The left ventricle is normal in structure and function, LVEF is 55-60%. Normal diastolic function. IVC borderline dialted. - s/p slow diuresis . Diet ice chips and npo DVT prophylaxis-lovenox GI prophylaxis PPI IV daily Med tele Full code Plan discussed with: Patient, Spouse My Orders Orders - GONZALO GREGORY MD Procedure Category Date Status Time Lorazepam 2mg/Ml Inj PHA 06/16/24 In Process (Ativan Inj) 09:15 Chest Portable XY 06/16/24 Resulted 09:40 Date of Service: Jun 16, 2024 Billing Provider: GONZALO GREGORY MD Common Visit Codes: [id number] INP/OBS CARE(HIGH) GONZALO GREGORY MD Jun 16, 2024 20:09
[2024-06-17] VITALS (9 sets, daily range): BP systolic 113–130; BP diastolic 60–84; PULSE 86–111; RESP 17–19; TEMP 97.3–98.6; O2SAT 92–99
[2024-06-17] MEDS: guaiFENesin-DM 100/10mg/5ml SYR PO PRN (04:46)
[2024-06-17 06:51] LABS: Basophils # (auto) 0 10 ^3/uL (0-0.2); Eosinophils # (auto) 0 10 ^3/uL (0-0.8); Hematocrit 23.7 % (36.0-46.0); Hemoglobin 7.6 g/dL (12.2-16.2); Lymphocytes # (auto) 0.3 10 ^3/uL (0.4-5.4); Mean Corpuscular Hgb Conc. 31.9 g/dL (32.0-36.0); Monocytes # (auto) 0.5 10 ^3/uL (0-1.3); Neutrophils % (auto) 91.8 % (37.0-80.0)
[2024-06-17 06:54] LABS: Lymphocytes % (auto) 3.6 % (10.0-50.0); Mean Corpuscular Hemoglobin 26.3 pg (28.0-32.0); Mean Corpuscular Volume 82.4 fL (80.0-100.0); Monocytes % (auto) 4.6 % (0.0-12.0); Platelet Count (auto) 163 10^3/uL (140-450); Red Blood Cells 2.87 10^6/uL (4.0-5.20); Red Cell Distribution Width 24.2 % (11.8-14.3); White Blood Cell 9.8 10^3/uL (4.4-10.8)
[2024-06-17 07:06] LABS: RPR Non Reactive (Non Reactive)
[2024-06-17 07:30] LABS: Alkaline Phosphatase 93 U/L (46-116); Anion Gap 9 (5-15); BUN/Creatinine Ratio 27.8 (10.0-20.0); Carbon Dioxide 23 mmol/L (20-31); Chloride 105 mmol/L (98-107); Magnesium 1.9 mg/dL (1.6-2.6); Sodium 137 mmol/L (136-145)
[2024-06-17 07:31] LABS: Albumin 3.4 g/dL (3.2-4.8); Phosphorus 3.7 mg/dL (2.4-5.1)
[2024-06-17 07:32] LABS: Total Protein 7.7 g/dL (5.7-8.2)
[2024-06-17 07:34] LABS: Alanine Aminotransferase 53 U/L (7-40); Aspartate Aminotransferase 99 U/L (13-40); Blood Urea Nitrogen 25 mg/dL (9-23); Glucose 159 mg/dL (74-106)
[2024-06-17 07:35] LABS: Bilirubin, Total 3.6 mg/dL (0.2-1.0); Calcium 8.6 mg/dL (8.7-10.4)
[2024-06-17] MEDS ORDERED: HYDROcodone-ACET 10/325MG TAB PO PRN (10:15)
[2024-06-17] MEDS: chlordiazePOXIDE HCL 25 MG CAP PO SCH (11:26)
[2024-06-17] MEDS: IBUPROFEN 600 MG TAB PO PRN (13:41)
--- NOTE | 2024-06-17 14:30 | ECG ---
[facility] Test Date: 2024-06-13 Test Time: 04:57:32 Pat Name: MARCUS DIEGO Department: ER Room: 0222T A Gender: F [employer]: ROSA : 1985 Requested By: ROMEO BETTS Order Number: [id number] Reading MD: Baldomero Sharpe Measurements Intervals Chloride Rate: 101 P: 49 IN: 145 QRS: 21 QRSD: 108 T: 26 QT: 370 QTc: 480 Interpretive Statements Sinus tachycardia Electronically Signed On 06-18-2024 9:43:16 PST by Baldomero Sharpe Please click the below link to view image of tracing.
[2024-06-17] MEDS: FUROSEMIDE 40 MG/4 ML VIAL IV ONE (17:59)
--- NOTE | 2024-06-17 19:59 | DVHPN2 ---
Subjective update - 06/17 - no loner agitated, although has a resting tremor. ciwa approx zero. however, severely deconditioned, ARELLANO, nyha3. need to wean off oxygen . -06/16 patients etoh w/d contnues. she remains ciwa> 8 requiring ativan doses . patietn is wth sitter, requiring transient use of physical restraints. keeping tele and continues pulse ox. close monitoring continues. - 06/15 - near discharge today, labs improving. New discharge patient's starts to get confused, aggressive, agitated, delirious, possible visual hallucinations. She is given oxygen and appears to improve a little bit. Upon revisiting the patient, she does endorse that she drinks1 bottle of vodka daily. This is likely alcohol withdrawal. We will do a small workup but mostly new diagnosis of alcohol. Alcohol is probably also causing everything else and all the other lab abnormalities seen - 06/14-patient is feeling mildly improved, bruising on abdomen is not worsening,. Sore throat and hoarseness of voice continues. Afebrile. Labs are looking mildly improved hemoglobin and thrombocytopenia improving. Workup and lab pending for still incoming. -06/13 - pt had recent URI, then feeling weak, recently had a fall on knees in bathroom, but mild bruising in right flank or periumbilcl region. took toradol which caused brusing to onset, shes calling it a allergic reaction. she denies any bleeding from any orifices. denies alcohol. she has severe sore throat. Reviewed: H&P Changes from previous H/P or p: No Changes General: Per HPI Objective Vitals Vital Signs Date Time Temp Pulse Resp B/P (MAP) Pulse Ox O2 Delivery O2 Flow Rate FiO2 06/17/24 17:59 129/80 06/17/24 17:00 98.3 90 18 94 98.3 06/17/24 10:00 Nasal Cannula* 1 24 Intake/Output Intake and Output 06/17/24 07:00 Intake Total 800 ml Balance 800 ml Intake Oral 750 ml IV Total 50 ml # Voids 3 # Bowel Movements 1 Exam GEN: Healthy appearing, well-developed, under mild distress due to symptoms HEENT: NC/AT; MMM. Hoarse voice. CV: RRR, no m/r/g. LUNGS: CTAB, no w/r/c. ABD: Soft, NT/ND, NBS, no masses or organomegaly. Bruising on periumbilical well lower quadrant region reolsving, bruisng in left lateral leg and dior. EXT: skin Warm, well perfused. no rashes. No clubbing, cyanosis, or edema. P itting edema 1 to trace dior NEURO: Ambulating with no limitations. No focal deficits. ciwa 0 Medications Current Medications Medications Dose Ordered Sig/Bárbara Route Start Time Stop Time Status Last Admin Dose Admin Ondansetron HCl 4 mg Q4HP PRN IV 06/13/24 06:45 Acetaminophen 650 mg Q6HP PRN PO 06/13/24 06:45 06/16/24 18:40 650 MG Diphenhydramine HCl 25 mg Q6HP PRN IV 06/13/24 06:45 06/16/24 07:21 25 MG Methylprednisolone Sodium Succinate 40 mg Q8HR IV 06/13/24 14:00 06/17/24 15:06 40 MG Famotidine 20 mg DAILY IV 06/13/24 10:00 06/17/24 11:19 20 MG Clindamycin Phosphate 50 ml @ 50 mls/hr Q8HR IV 06/15/24 14:00 06/17/24 13:42 50 MLS/HR Lorazepam 1 mg Q6HP PRN IV 06/15/24 16:45 06/15/24 21:13 1 MG Thiamine HCl 100 mg DAILY PO 06/16/24 10:00 06/17/24 11:24 100 MG Folic Acid 1 mg DAILY PO 06/16/24 10:00 06/17/24 11:24 1 MG Multivitamins 1 tab DAILY PO 06/16/24 10:00 06/17/24 11:24 1 TAB Chlordiazepoxide HCl 25 mg Q12HR PO 06/17/24 10:00 06/17/24 22:01 06/17/24 11:26 25 MG Chlordiazepoxide HCl 25 mg QAM PO 06/18/24 07:00 06/18/24 07:01 Lorazepam 4 mg Q2HR PRN IV 06/16/24 09:15 06/16/24 09:23 4 MG Guaifenesin/ Dextromethorphan 10 ml Q6HPRN PRN PO 06/17/24 04:30 06/17/24 04:46 10 ML Acetaminophen/ Hydrocodone Bitart 1 tab Q4HP PRN PO 06/17/24 10:15 Ibuprofen 600 mg Q6HP PRN PO 06/17/24 10:15 06/17/24 13:41 600 MG Furosemide 20 mg BIDD IV 06/18/24 06:00 Laboratory Results Laboratory Tests 06/17/24 06:14 Chemistry Test 06/17/24 06:14 Albumin 3.4 g/dL (3.2-4.8) Calcium Level 8.6 mg/dL (8.7-10.4) L Magnesium Level 1.9 mg/dL (1.6-2.6) Phosphorus Level 3.7 mg/dL (2.4-5.1) Total Protein 7.7 g/dL (5.7-8.2) LFT Test 06/17/24 06:14 Alanine Aminotransferase (ALT) 53 U/L (7-40) H Alkaline Phosphatase 93 U/L (46-116) Aspartate Amino Transferase (AST) 99 U/L (13-40) H Total Bilirubin 3.6 mg/dL (0.2-1.0) H Urinalysis Test 06/13/24 11:17 06/17/24 11:32 Urine Color Yellow (Yellow) Urine Clarity Clear (Clear) Urine pH 6.5 (5.0-9.0) Urine Specific [place] 1.011 (1.001-1.035) Urine Protein 2+ (Negative) H Urine Ketones 1+ (Negative) H Urine Blood 3+ /uL (Negative) H Urine Nitrite Negative (Negative) Urine Bilirubin 1+ (Negative) H Urine Urobilinogen 6 mg/dL (Negative) Urine Leukocyte Esterase Negative /uL (Negative) Urine RBC <1 /hpf (0 - 4) Urine WBC <1 /hpf (0 - 5) Urine Squamous Epithelial Cells Few /hpf (<5) Urine Bacteria None seen /hpf (None Seen) Urine Glucose Normal mg/dL (Normal) Urine Osmolality 852 mOsm/kg Labs and/or images reviewed: Labs reviewed by me, Image(s) reviewed by me Assessment/Plan Assessment/Plan - 06/17 - no loner agitated, although has a resting tremor. ciwa approx zero. however, severely deconditioned, ARELLANO, nyha3. need to wean off oxygen . echo already done w/o any abnormalities. PT eval. consider CT vs CTA. further diuresis can be tried. disablity form wll need filled out by PCP. Anemia , severe microcytic Under operative anemia Thrombocytopenia Bicytopenia Upper respiratory infection Acidosis Bruising in abdomen - patient presenting with bruising, multiple respiratory symptoms --labs showing bicytopenia with anemia and thrombocytopenia. Anemia requiring 2 units PRBC -CT abdomen w/o con - 06/14 - to rule out retroperitoneal bleed- CT without retroperitoneal bleed, but showing possible pneumonia, coli cystitis, large fibroids in uterus. - RPI less than, under productive anemia ; - condition likely due to alcohol abuse -status post 2 PRBC. Recheck CBC daily - improving acute toxic metabolic encephalopathy Alcohol Withdrawal Alcohol dependence/abuse - workup laregely negative, pt endorses ongoig etoh abuse and dependence -06/15 near discharge, patient is withdrawing CIWA more than. -start CIWA protocol -Librium taper -thiamine and folate resuscitation (sp banana bag ) - resolved 06/17 pedal edema Neutrophilia Sore throat - Patient presented 2 weeks of URI. With neutrophilia -check strep throat rapid, hold off Unasyn patient has penicillin allergy we will try clindamycin Hyponatremia - work-up with [place] uOsm.. Hypovolemic versus hypervol. Patient had recent URI, but also signs of volume overload. - And workup with urine sodium, urine osmoles - appears volume overload we will try slow Lasix. imprving,. Elevated LFTs transaminitis Hyperbilirubinemia -on initial labs on admit, noting mild elevation in LFT and ALP. T bili noted to be elevated as well. - jaundice and LFTs likely from alcohol abuse - GGT high, D bili elevated, CT abdomen and pelvis without any acute process. volume overlaod due to etoh Cirrhosis ARELLANO, SOB, NYHA3 Acute diastolic heart failure less likely Pitting edema bilateral - BNP elevated, bilateral pitting edema, but no rales. - echo: mild asymmetric left ventricular hypertrophy. The left ventricle is normal in structure and function, LVEF is 55-60%. Normal diastolic function. IVC borderline dialted. - s/p slow diuresis . - PT eval Diet cardiac diet (low salt) DVT prophylaxis-lovenox GI prophylaxis PPI IV daily Med tele Full code Plan discussed with: Patient My Orders Orders - GONZALO GREGORY MD Procedure Category Date Status Time Hydrocodone-Acet PHA 06/17/24 In Process 10/325mg Tab ([place] 10:15 Ibuprofen Tablet PHA 06/17/24 In Process (Motrin Tablet) 10:15 Dietary NOTICE 06/17/24 Transmitted Recommendations 10:16 Pt Request For Service PT 06/17/24 Logged 17:18 Echo 2d Mode Cardiac US 06/17/24 Logged DOP 17:18 Furosemide Injection PHA 06/18/24 In Process (Lasix Injection) 06:00 Date of Service: Jun 17, 2024 Billing Provider: GONZALO GREGORY MD Common Visit Codes: [id number] INP/OBS CARE(HIGH) GONZALO GREGORY MD Jun 17, 2024 19:59
[2024-06-18] VITALS (7 sets, daily range): BP systolic 128–140; BP diastolic 65–87; PULSE 85–91; RESP 16–22; TEMP 97.6–98.3; O2SAT 93–95
[2024-06-18] MEDS: chlordiazePOXIDE HCL 25 MG CAP PO SCH (06:11)
[2024-06-18] MEDS: FUROSEMIDE 20 MG/2 ML VIAL IV SCH (06:12)
[2024-06-18 06:20] LABS: Basophils # (auto) 0 10 ^3/uL (0-0.2); Eosinophils # (auto) 0 10 ^3/uL (0-0.8); White Blood Cell 9.1 10^3/uL (4.4-10.8)
[2024-06-18 06:23] LABS: Lymphocytes # (auto) 0.2 10 ^3/uL (0.4-5.4); Lymphocytes % (auto) 2.6 % (10.0-50.0); Mean Corpuscular Hemoglobin 26.2 pg (28.0-32.0); Mean Corpuscular Hgb Conc. 31.8 g/dL (32.0-36.0); Mean Corpuscular Volume 82.4 fL (80.0-100.0); Monocytes # (auto) 0.4 10 ^3/uL (0-1.3); Monocytes % (auto) 4.3 % (0.0-12.0); Neutrophils # (auto) 8.5 10 ^3/uL (1.6-8.6); Neutrophils % (auto) 93.1 % (37.0-80.0); Nucleated Red Blood Cells % 0.2 %; Platelet Count (auto) 191 10^3/uL (140-450); Red Blood Cells 3.03 10^6/uL (4.0-5.20)
[2024-06-18 06:35] LABS: Red Cell Distribution Width 25.5 % (11.8-14.3)
[2024-06-18 08:56] LABS: Anisocytosis Moderate; Hypochromia Slight; Platelet Estimate Adequate
--- NOTE | 2024-06-18 13:33 | DVHDS2 ---
Discharge Summary Date of Admission Jun 13, 2024 at 06:36 Date of Discharge: Jun 15, 2024 Labs/Diagnostic Data: Laboratory Results Test 06/18/24 04:56 06/17/24 11:32 06/17/24 06:14 06/15/24 18:09 White Blood Count 9.1 10^3/uL (4.4-10.8) Red Blood Count 3.03 10^6/uL (4.0-5.20) Hemoglobin 8.0 g/dL (12.2-16.2) Hematocrit 25.0 % (36.0-46.0) Mean Corpuscular Volume 82.4 fL (80.0-100.0) Mean Corpuscular Hemoglobin 26.2 pg (28.0-32.0) Mean Corpuscular Hemoglobin Concent 31.8 g/dL (32.0-36.0) Red Cell Distribution Width 25.5 % (11.8-14.3) Platelet Count 191 10^3/uL (140-450) Mean Platelet Volume 8.3 fL (6.9-10.8) Neutrophils (%) (Auto) 93.1 % (37.0-80.0) Lymphocytes (%) (Auto) 2.6 % (10.0-50.0) Monocytes (%) (Auto) 4.3 % (0.0-12.0) Eosinophils (%) (Auto) 0.0 % (0.0-7.0) Basophils (%) (Auto) 0.0 % (0.0-2.0) Neutrophils # (Auto) 8.5 10 ^3/uL (1.6-8.6) Lymphocytes # (Auto) 0.2 10 ^3/uL (0.4-5.4) Monocytes # (Auto) 0.4 10 ^3/uL (0-1.3) Eosinophils # (Auto) 0 10 ^3/uL (0-0.8) Basophils # (Auto) 0 10 ^3/uL (0-0.2) Nucleated Red Blood Cells 0.2 % Platelet Estimate Adequate Hypochromasia (manual) Slight Anisocytosis (manual) Moderate Urine Osmolality 852 mOsm/kg Stool Occult Blood Negative (Negative) Stool Occult Blood Sample #3 (Negative) Sodium Level 137 mmol/L (136-145) Potassium Level 4.0 mmol/L (3.5-5.1) Chloride Level 105 mmol/L (98-107) Carbon Dioxide Level 23 mmol/L (20-31) Anion Gap 9 (5-15) Blood Urea Nitrogen 25 mg/dL (9-23) Creatinine 0.90 mg/dL (0.550-1.02) Glomerular Filtration Rate Calc 84 mL/min (>90) BUN/Creatinine Ratio 27.8 (10.0-20.0) Serum Glucose 159 mg/dL (74-106) Calcium Level 8.6 mg/dL (8.7-10.4) Phosphorus Level 3.7 mg/dL (2.4-5.1) Magnesium Level 1.9 mg/dL (1.6-2.6) Total Bilirubin 3.6 mg/dL (0.2-1.0) Aspartate Amino Transferase (AST) 99 U/L (13-40) Alanine Aminotransferase (ALT) 53 U/L (7-40) Alkaline Phosphatase 93 U/L (46-116) Total Protein 7.7 g/dL (5.7-8.2) Albumin 3.4 g/dL (3.2-4.8) Ammonia 29 umol/L (11-32) Thyroid Stimulating Hormone (TSH) 1.49 uIU/mL (0.55-4.78) Rapid Plasma Reagin Non reactive (Non Reactive) Test 06/14/24 03:55 06/13/24 20:55 06/13/24 11:17 06/13/24 06:15 Microcytosis Slight Stomatocytes Few Reticulocyte Count (auto) 3.81 % (0.5-1.5) Haptoglobin 91 mg/dL (33-278) Lactic Acid Level 1.4 mmol/L (0.4-2.0) Direct Bilirubin 3.2 mg/dL (<0.3) Gamma Glutamyl Transpeptidase 410 U/L (<38) Lactate Dehydrogenase 376 U/L (120-246) SARS-CoV-2 Antigen (Rapid) Negative (NEGATIVE) Urine Color Yellow (Yellow) Urine Clarity Clear (Clear) Urine pH 6.5 (5.0-9.0) Urine Specific [place] 1.011 (1.001-1.035) Urine Protein 2+ (Negative) Urine Ketones 1+ (Negative) Urine Blood 3+ /uL (Negative) Urine Nitrite Negative (Negative) Urine Bilirubin 1+ (Negative) Urine Urobilinogen 6 mg/dL (Negative) Urine Leukocyte Esterase Negative /uL (Negative) Urine RBC <1 /hpf (0 - 4) Urine WBC <1 /hpf (0 - 5) Urine Squamous Epithelial Cells Few /hpf (<5) Urine Bacteria None seen /hpf (None Seen) Urine Glucose Normal mg/dL (Normal) Urine Opiates Screen Neg (NEGATIVE) Urine Fentanyl Screen Neg (NEGATIVE) Urine Barbiturates Screen Neg (NEGATIVE) Urine Phencyclidine Screen Neg (NEGATIVE) Urine Amphetamines Screen Neg (NEGATIVE) Urine Benzodiazepines Screen Neg (NEGATIVE) Urine Cocaine Screen Neg (NEGATIVE) Urine Cannabinoids Screen Neg (NEGATIVE) Troponin I High Sensitivity < 3 ng/L (</=34) Plasma/Serum Blood Alcohol < 3.0 mg/dL (<10) Hepatitis A IgM Antibody Negative Hepatitis B Surface Antigen Negative (Negative) Hepatitis B Core IgM Antibody Negative (Negative) Hepatitis C Antibody Negative (Negative) Test 06/13/24 05:15 06/13/24 00:00 Prothrombin Time 14.1 sec (9.3-11.8) Prothrombin Time INR 1.36 (0.9-1.15) Activated Partial Thromboplast Time 29.9 SEC (24.5-34.5) B-Type Natriuretic Peptide 349.98 pg/mL (0-100) Beta HCG, Quantitative 0.6 mIU/mL (1.5-4.2) Influenza Type A Antigen Negative (Negative) Influenza Type B Antigen Negative (Negative) Other Laboratory Tests 06/18/24 04:56 06/17/24 06:14 Brief Hx & Hospital Course: HPI: 38-year-old female with no past medical history who presents to the ED for shortness of breath, bruising, weakness, nausea, and fatigue x1 day. Patient states that she took Toradol at 8:00 a.m. yesterday and around 2 or 3:00 p.m. she started to develop symptoms. Patient also reports that on June 06 she took Mucinex and drank alcohol, was in the shower slipped and fell on her back did not hit her head but she also struck her left side of her leg on the shower and eventually developed bruising. Patient reports that she has bruising all throughout her body and she is not too sure why. Patient reports that she was also sick with a sore throat and congestion for the last 2 weeks. She stated she would just took Mucinex to help with the symptoms with no relief. Patient also reports that she has not seen a primary care physician for over 5 years and does not have 1 currently. - patient presenting with bruising, multiple respiratory symptoms. labs showing bicytopenia with anemia and thrombocytopenia. Anemia requiring [address] abdomen w/o con - 06/14 - to rule out retroperitoneal bleed- CT without retroperitoneal bleed, but showing possible pneumonia, large fibroids in uterus.RPI less than, under productive anemia. condition likely due to alcohol abuse. improving cytopenias during visit. on day 1-2 noting pitting edema, rales, appears volume overload, echo w/o diastolic/systolic dysfucntion, diuresis improves some symptoms and improves hypervolemic hyponatremia. On 06/15 near discharge, patient is withdrawing CIWA more than 10, agitated and finally admits to her alcohol addiction and depedence 750cc vodka daily., started on etoh w/d ciwa protocol which ends on 06/16 late PM. also given thimaine, folate, banana bag and [id number]. on 06/17 again appraoching dc but severely ARELLANO SOB, some rales still present with pedal edema. further diuresis done and PT eval done, no needs. she is weaned off oxygen. safe to f/u outpatient with plan below. diagnosis: severe symptomatic anemia, thrombocytopenia and acute hepatic insult acute alcohol binge and/or acute viral syndrome; bicytopenia from alcohol induced marrow toxicity, resolving; acute toxic encephalopathy from alcohol withdrawal; chronic alcohol dependence; acute hypoxic respiratory failure likely due to volume overload; volume overload due to cirrhosis; transaminitis and hyperbilirubinemia likely from cirrhosis; hepatic steatosis on CT; MARSHALL due to volume overload, cardiorenal; diastolic heart failure ruled out; discharge plan: - continue folate 1mg daily, thiamine 100mg daily. daily multivitamin - quit alcohol (get admission with AA meetings, naltrexone defered to PCP, addiction psychiatry defer to PCP) - acquire health insurance. acquire PCP. - recommend PT outpatient. - PCP follow-up to review hospitalization. PCP to eval need for PSG, naltrexone, addiction psychiatry, alcohol rehab). PCP to review disability insurance forms. Condition at Discharge: Fair Final Diagnosis/Problems List severe symptomatic anemia, thrombocytopenia and acute hepatic insult acute alcohol binge and/or acute viral syndrome; bicytopenia from alcohol induced marrow toxicity, resolving; acute toxic encephalopathy from alcohol withdrawal; chronic alcohol dependence; acute hypoxic respiratory failure likely due to volume overload; volume overload due to cirrhosis; transaminitis and hyperbilirubinemia likely from cirrhosis; hepatic steatosis on CT; MARSHALL due to volume overload, cardiorenal; diastolic heart failure ruled out; Discharge Disposition: Home Discharge Instruct/Medications Diet: Regular Activity: No Restrictions, As Tolerated Follow Up/Referral: PCP Medications: below Discharge Statement: "Patient was advised to return to the ER or call 911 if any headaches, dizziness, shortness of breath, chest pain, abdominal pain, bleeding, fevers, or worsening of medical condition. Patient was counseled about treatment plan, medications, possible side effects, patientverbalized understanding. All questions were answered to the best of my ability. This discharge took greater then 30 minutes in planning, reviewing documentation, counseling the patient, and discussing with other team members." ASSESSMENT ASSESSMENT Assessment severe symptomatic anemia, thrombocytopenia and acute hepatic insult acute alcohol binge and/or acute viral syndrome; bicytopenia from alcohol induced marrow toxicity, resolving; acute toxic encephalopathy from alcohol withdrawal; chronic alcohol dependence; acute hypoxic respiratory failure likely due to volume overload; volume overload due to cirrhosis; transaminitis and hyperbilirubinemia likely from cirrhosis; hepatic steatosis on CT; MAR[place] due to volume overload, cardiorenal; diastolic heart failure ruled out; Date of Service: Jun 18, 2024 Billing Provider: GONZALO GREGORY MD Common Visit Codes: 54976-[id number] DISCH DAY >30min GONZALO GREGORY MD Jun 18, 2024 13:32
== END 2024-06-18 16:16 | disposition home or self-care (01) | DRG 811 ==
LOC: ER 04:41 → TELE 06:36 → TELE-CENTR 06-14 04:51
PROVIDERS: ADMIT Student in an Organized Health Care Education/Training Program; ATTEND Student in an Organized Health Care Education/Training Program
PROC: 30233N1 Transfusion of Nonautologous Red Blood Cells into Peripheral Vein, Percutaneous Approach (ICD-10-PCS; principal; 2024-06-13)
DX: D50.9 Iron deficiency anemia, unspecified (principal); G92.8 Other toxic encephalopathy; J96.01 Acute respiratory failure with hypoxia; J18.9 Pneumonia, unspecified organism; E87.1 Hypo-osmolality and hyponatremia; E87.20 Acidosis, unspecified; F10.239 Alcohol dependence with withdrawal, unspecified; N17.9 Acute kidney failure, unspecified; Z20.822 Contact with and (suspected) exposure to COVID-19; D69.6 Thrombocytopenia, unspecified; E66.9 Obesity, unspecified; J06.9 Acute upper respiratory infection, unspecified; K70.30 Alcoholic cirrhosis of liver without ascites; E87.70 Fluid overload, unspecified; K76.0 Fatty (change of) liver, not elsewhere classified; B34.9 Viral infection, unspecified; Y90.9 Presence of alcohol in blood, level not specified; D25.9 Leiomyoma of uterus, unspecified; Z88.0 Allergy status to penicillin; Z83.3 Family history of diabetes mellitus; Z68.36 Body mass index [BMI] 36.0-36.9, adult
CPT/HCPCS: 36415; 71045; 74176; 80048; 80053; 80074; 80307; 80320; 81001; 82140; 82248; 82270; 82977; 83010; 83605; 83615; 83735; 83880; 83935; 84100; 84443; 84484; 84702; 85025; 85045; 85610; 85730; 86592; 86850; 86900; 86901; 86920; 87426; 87804; 93005; 93306; 94640; 97163; 99291; G0378; J2405; J3490; J7060

== ENCOUNTER 2024-08-24 15:32 | Inpatient (IN) | payer MEDICAID ==
[~2024-08-24] VITALS: Ht 177.8 cm; Wt 104.4 kg
--- NOTE | 2024-08-24 16:16 | ED.PDOC ---
History of Present Illness HPI Comments 38 y.o female presents to the ED for an evaluation of abnormal labs. Patient was seen at a clinic for a 3 day history of lower extremity swelling, had blood drawn and it showed low HGB. Patient was sent to the ED for further evaluation. Patient does complain of exertional SOB associated with nausea and diarrhea today. Patient has a PMHx of Anemia, blood transfusions- last one was 2 months ago-, kidney and liver disease. Patient mentions history of previous heavy alcohol abuse, however has not had a drink since her last transfusion. Chief Complaint: Abnormal LAB's Time Seen by MD: 16:08 Primary Care Provider: None Reviewed Notes: Nurses Notes, Medications, Allergies Allergies: Coded Allergies: Ketorolac Tromethamine (Verified Allergy, Severe, dizziness, 06/13/24) Penicillins (Verified Allergy, Mild, dizziness, 06/13/24) Information Source: Patient Mode of Arrival: Ambulatory Severity: Moderate Timing: Hours Duration: Since onset Prehospital treatment: None Associated signs and symptoms Generalized weakness, electrolyte imbalance, anemia Past Medical History PAST MEDICAL HISTORY: Anemia, CKF, Liver Past Medical History (Other): blood transfusion Surgical History: Denies all surgeries [employer] History: No 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 Family History Family History: Reviewed,noncontributory to illness Social History Smoker: Non-Smoker Alcohol: Sober Drugs: Denies Drug Use Lives In: Home Constitutional: denies: chills, diaphoresis, fatigue, fever, malaise, sweats, weakness, others EENTM: denies: blurred vision, double vision, ear bleeding, ear discharge, ear drainage, ear pain, ear ringing, eye pain, eye redness, hearing loss, mouth pain, mouth swelling, nasal discharge, nose bleeding, nose congestion, nose pain, photophobia, tearing, throat pain, throat swelling, voice changes, others Respiratory: reports: SOB at rest, shortness of breath, SOB with excertion; denies: cough, hemoptysis, orthopnea, stridor, wheezing, others Cardiovascular: denies: chest pain, dizzy spells, diaphoresis, Dyspnea on exertion, edema, irregular heart beat, left arm pain, lightheadedness, palpitations, PND, syncope, others Gastrointestinal: reports: diarrhea, nausea; denies: abdomen distended, abdominal pain, blood streaked bowels, constipated, dysphagia, difficulty swallowing, hematemesis, melena, poor appetite, poor fluid intake, rectal bleeding, rectal pain, vomiting, others Genitourinary: denies: abnormal vagina bleeding, burning, dyspareunia, dysuria, flank pain, frequency, hematuria, incontinence, pain, , vagina discharge, urgency, others Neurological: denies: dizziness, fainting, headache, left sided numbness, left sided weakness, numbness, paresthesia, pre-existing deficit, right sided numbnes s, right sided weakness, seizure, speech problems, tingling, tremors, weakness, others Musculoskeletal: reports: others (Bilateral lower extremity swelling ); denies: back pain, gout, joint pain, joint swelling, muscle pain, muscle stiffness, neck pain Integumetry: denies: bruises, change in color, change in hair/nails, dryness, laceration, lesions, lumps, rash, wounds, others Hematologic/Lymphatic: denies: anemia, blood clots, easy bleeding, easy bruising, swollen glands, others Endocrine: denies: excessive hunger, excessive sweating, excessive thirst, excessive urination, flushing, intolerance to cold, intolerance to heat, unexplained weight gain, unexplained weight loss, others Psychiatric: denies: anxiety, bipolar disorder, depression, hopeless, panic disorder, schizophrenia, sleepless, suicidal, others All Other Systems: Reviewed and Negative Physical Exam General Appearance: Moderate Distress HEENT: Pale Conjuntivae (L), Pale Conjuntivae (R), Pharynx Normal, TMs Normal Neck: Full Range of Motion, Non-Tender, Normal, Normal Inspection Respiratory: Chest Non-Tender, Lungs Clear, No Accessory Muscle Use, No Respiratory Distress, Normal Breath Sounds Cardiovascular: No Edema, No JVD, No Murmur, No Gallop, Normal Peripheral Pulses, Regular Rate/Rhythm Breast Exam: Deferred Gastrointestinal: Hepatomegaly, Non Tender, No Pulsatile Mass, Normal Bowel Sounds, Soft Genitalia: Deferred Pelvic: Deferred Rectal: Deferred Extremities: No calf tenderness, Normal capillary refill, Pedal edema Musculoskeletal : Apperance: Normal Neurologic: Alert, wound treatment rn II-XII nml as Tested, No Motor Deficits, Normal Affect, Normal Mood, No Sensory Deficits Cerebellar Function: Normal Reflexes: Normal Skin: Dry, Pallor, Warm Lymphatic: No Adenopathy Was a procedure done? Was a procedure done?: No Differential Dx Considerations may include: Anemia, Dehydration, Electrolyte Imbalance, Kidney failure, Liver failure X-Ray, Labs, Meds, VS Vital Signs Date Time Temp Pulse Resp B/P (MAP) Pulse Ox O2 Delivery O2 Flow Rate FiO2 08/24/24 18:55 91 21 96 Room Air* 0 21 08/24/24 18:54 98.6 91 21 99/42 (61) 96 98.6 08/24/24 15:57 97.6 90 20 114/30 (58) 100 97.6 Lab Test 08/24/24 17:41 Range/Units White Blood Count 9.6 4.4-10.8 10^3/uL Red Blood Count 1.74 L 4.0-5.20 10^6/uL Hemoglobin 4.2 *L 12.2-16.2 g/dL Hematocrit 13.4 L 36.0-46.0 % Mean Corpuscular Volume 77.2 L 80.0-100.0 fL Mean Corpuscular Hemoglobin 24.1 L 28.0-32.0 pg Mean Corpuscular Hemoglobin Concent 31.3 L 32.0-36.0 g/dL Red Cell Distribution Width 23.7 H 11.8-14.3 % Platelet Count 229 140-450 10^3/uL Mean Platelet Volume 9.0 6.9-10.8 fL Neutrophils (%) (Auto) 72.5 37.0-80.0 % Lymphocytes (%) (Auto) 13.2 10.0-50.0 % Monocytes (%) (Auto) 12.7 H 0.0-12.0 % Eosinophils (%) (Auto) 1.4 0.0-7.0 % Basophils (%) (Auto) 0.2 0.0-2.0 % Neutrophils # (Auto) 7.0 1.6-8.6 10 ^3/uL Lymphocytes # (Auto) 1.3 0.4-5.4 10 ^3/uL Monocytes # (Auto) 1.2 0-1.3 10 ^3/uL Eosinophils # (Auto) 0.1 0-0.8 10 ^3/uL Basophils # (Auto) 0 0-0.2 10 ^3/uL Nucleated Red Blood Cells 0.7 % Prothrombin Time 16.3 H 9.3-11.8 sec Prothrombin Time INR 1.61 H 0.9-1.15 Activated Partial Thromboplast Time 30.1 24.5-34.5 SEC Sodium Level 119 *L 136-145 mmol/L Potassium Level 3.5 3.5-5.1 mmol/L Chloride Level 85 L 98-107 mmol/L Carbon Dioxide Level 24 20-31 mmol/L Anion Gap 10 5-15 Blood Urea Nitrogen 47 H 9-23 mg/dL Creatinine 3.37 H 0.550-1.02 mg/dL Glomerular Filtration Rate Calc 17 >90 mL/min BUN/Creatinine Ratio 13.9 10.0-20.0 Serum Glucose 103 74-106 mg/dL Calcium Level 8.9 8.7-10.4 mg/dL Total Bilirubin 3.6 H 0.2-1.0 mg/dL Aspartate Amino Transferase (AST) 58 H 13-40 U/L Alanine Aminotransferase (ALT) 25 7-40 U/L Alkaline Phosphatase 119 H 46-116 U/L B-Type Natriuretic Peptide 360.86 0-100 pg/mL Total Protein 7.5 5.7-8.2 g/dL Albumin 3.5 3.2-4.8 g/dL AP portable chest IMPRESSION: 1. No acute cardiopulmonary pathology The CBC is within normal limits. The chemistry panel shows a BUN of 47 and a creatinine of 3.37 The BNP is 360.86 The hemoglobin is 4.2 and hematocrit of 13.4 The platelets are within normal limits At this time, the patient was being admitted to the hospitalist Because of the findings on the hemoglobin, the patient was being given 2 units of packed red blood cells The patient was being admitted The patient was also hyponatremic at 119 We are giving the patient 3% sodium solution Images Reviewed?: Images reviewed and evaluated by me Time of 1ST Reevaluation: 16:11 Reevaluation 1ST: Unchanged Patient Education/Counseling: Diagnosis, Treatment, Prognosis Family Education/Counseling: No Family Present Departure 1 Departure Time of Disposition: 19:11 Impression: Primary Impression: Severe anemia Additional Impressions: Hyponatremia Generalized weakness Disposition: ADMITTED INPATIENT Admit to: [facility] Condition: Guarded Critical Care Note Critical Care Time?: Yes (55 min-critical care time only) Stability Stability form required: Yes Unstable for transfer: Telemetry monitoring (Telemetry monitoring required), ED Physician Assesment (Clinical assesment) I personally scribed for DIANE FENG MD ([email or web address]) on 08/24/24 at 16:16. Electronically submitted by Cassandra Lr ([facility]). I personally scribed for DIANE FENG MD ([email or web address]) on 08/24/24 at 18:16. Electronically submitted by Cassandra Lr ([facility]). DIANE FENG MD Aug 24, 2024 16:16
--- NOTE | 2024-08-24 17:01 | DVH ---
AP portable chest HISTORY: weakness comparison: 06/13/2024 Comparison: XY CHEST PORTABLE on DOS: 06/16/24, XY CHEST PORTABLE on DOS: 06/13/24 FINDINGS: Slight prominence of the main pulmonary artery segment. Size is borderline. No infiltrates or effusions IMPRESSION: 1. No acute cardiopulmonary pathology
[2024-08-24 18:09] LABS: Basophils # (auto) 0 10 ^3/uL (0-0.2); Basophils % (auto) 0.2 % (0.0-2.0); Eosinophils # (auto) 0.1 10 ^3/uL (0-0.8); Hematocrit 13.4 % (36.0-46.0); Lymphocytes # (auto) 1.3 10 ^3/uL (0.4-5.4); Mean Corpuscular Hgb Conc. 31.3 g/dL (32.0-36.0); Monocytes # (auto) 1.2 10 ^3/uL (0-1.3); Red Blood Cells 1.74 10^6/uL (4.0-5.20); White Blood Cell 9.6 10^3/uL (4.4-10.8)
[2024-08-24 18:11] LABS: Eosinophils % (auto) 1.4 % (0.0-7.0); Lymphocytes % (auto) 13.2 % (10.0-50.0); Mean Corpuscular Hemoglobin 24.1 pg (28.0-32.0); Mean Corpuscular Volume 77.2 fL (80.0-100.0); Monocytes % (auto) 12.7 % (0.0-12.0); Neutrophils % (auto) 72.5 % (37.0-80.0); Nucleated Red Blood Cells % 0.7 %; Platelet Count (auto) 229 10^3/uL (140-450)
[2024-08-24 18:23] LABS: INR 1.61 (0.9-1.15); Partial Thromboplastin Time 30.1 SEC (24.5-34.5); Prothrombin Time 16.3 sec (9.3-11.8)
[2024-08-24 18:25] LABS: Alanine Aminotransferase 25 U/L (7-40); Albumin 3.5 g/dL (3.2-4.8); Anion Gap 10 (5-15); BUN/Creatinine Ratio 13.9 (10.0-20.0); Calcium 8.9 mg/dL (8.7-10.4); Carbon Dioxide 24 mmol/L (20-31); Glucose 103 mg/dL (74-106); Total Protein 7.5 g/dL (5.7-8.2)
[2024-08-24 18:36] LABS: Hemoglobin 4.2 g/dL (12.2-16.2); Red Cell Distribution Width 23.7 % (11.8-14.3)
[2024-08-24 18:46] LABS: Alkaline Phosphatase 119 U/L (46-116); Aspartate Aminotransferase 58 U/L (13-40); Bilirubin, Total 3.6 mg/dL (0.2-1.0); Blood Urea Nitrogen 47 mg/dL (9-23); Chloride 85 mmol/L (98-107); Potassium 3.5 mmol/L (3.5-5.1)
[2024-08-24 18:48] LABS: Sodium 119 mmol/L (136-145)
[2024-08-24 18:55] VITALS: PULSE 91; RESP 21; O2SAT 96
[2024-08-24] MEDS ORDERED: SODIUM CHL 3% 500 ML IV ONE (19:00)
[2024-08-24] MEDS: SODIUM CHLORIDE 0.9% 1,000 ML IV ONE (19:45)
[2024-08-24] MEDS ORDERED: ONDANSETRON HCL 4 MG/2 ML VIAL IV PRN (19:45)
[2024-08-24 19:55] VITALS: RESP 21; O2SAT 97
[2024-08-24 20:27] LABS: % Iron Saturation 4.8 % (15-50)
[2024-08-24 21:26] VITALS: BP 106/51; PULSE 95; RESP 31; TEMP 99.1
[2024-08-24 21:51] VITALS: BP 102/51; PULSE 97; RESP 28; TEMP 98.1
--- NOTE | 2024-08-24 22:25 | DVHHP2 ---
History of Present Illness Reason for Visit: Weakness History of Present Illness 38-year-old female presents for evaluation of weakness. Patient presents for evaluation of low hemoglobin level. Patient reports last being transfused two months ago due to low hemoglobin level. Denies any presyncope hematuria or tiny anjelica. She does report history of anemia and heavy menstrual cycle. Presyncope she should check she reports also history of liver disease and kidney disease. No other acute complaints reported. Past Medical History Chronic kidney disease, liver, anemia Past Surgical History Denies Family History Noncontributory Smoke: No ALCOHOL: none (Sober) Lives: with Family Review of Systems Review of Systems Review of systems are currently negative otherwise addressed in HPI. Allergies: Coded Allergies: Ketorolac Tromethamine (Verified Allergy, Severe, dizziness, 06/13/24) Penicillins (Verified Allergy, Mild, dizziness, 06/13/24) Medications Current Medications Medications Dose Ordered Sig/Bárbara Route Start Time Stop Time Status Last Admin Dose Admin Ondansetron HCl 4 mg Q4HP PRN IV 08/24/24 19:45 Acetaminophen 650 mg Q6HP PRN PO 08/24/24 19:45 Exam Vital Signs Vital Signs Date Time Temp Pulse Resp B/P (MAP) Pulse Ox O2 Delivery O2 Flow Rate FiO2 08/24/24 21:51 98.1 97 28 102/51 98.1 08/24/24 18:55 96 Room Air* 0 21 Exam Gen: 38-year-old female in mild distress. Skin: Warm, dry, normal color and texture, no rash. HEENT: Normocephalic atraumatic, mucous membranes moist and pink. Neck: Cervical and supraclavicular nodes normal without enlargement, trachea is midline, thyroid gland is normal without masses. Pulmonary: Clear to auscultation and percussion bilaterally. Cardiac: Regular rate and rhythm. No murmur Abdomen: Soft, nontender, nondistended, bowel sounds present all 4 quadrants, no guarding, no rigidity, no organomegaly. Extremities: No cyanosis, clubbing, no edema Neuro: Cranial nerves II through XII grossly intact, normal affect and speech, n o focal motor deficits. Labs/Xrays ORDERING PHYSICIAN: DIANE FENG MD PROCEDURE(s): CXRP - CHEST PORTABLE REASON: weakness ORDER NUMBER(s): [id number], ACCESSION NUMBER(s): [id number] AP portable chest HISTORY: weakness comparison: 06/13/2024 Comparison: XY CHEST PORTABLE on DOS: 06/16/24, XY CHEST PORTABLE on DOS: 06/13/24 FINDINGS: Slight prominence of the main pulmonary artery segment. Size is borderline. No infiltrates or effusions IMPRESSION: 1. No acute cardiopulmonary pathology Labs Test 08/24/24 17:41 Range/Units White Blood Count 9.6 4.4-10.8 10^3/uL Red Blood Count 1.74 L 4.0-5.20 10^6/uL Hemoglobin 4.2 *L 12.2-16.2 g/dL Hematocrit 13.4 L 36.0-46.0 % Mean Corpuscular Volume 77.2 L 80.0-100.0 fL Mean Corpuscular Hemoglobin 24.1 L 28.0-32.0 pg Mean Corpuscular Hemoglobin Concent 31.3 L 32.0-36.0 g/dL Red Cell Distribution Width 23.7 H 11.8-14.3 % Platelet Count 229 140-450 10^3/uL Mean Platelet Volume 9.0 6.9-10.8 fL Neutrophils (%) (Auto) 72.5 37.0-80.0 % Lymphocytes (%) (Auto) 13.2 10.0-50.0 % Monocytes (%) (Auto) 12.7 H 0.0-12.0 % Eosinophils (%) (Auto) 1.4 0.0-7.0 % Basophils (%) (Auto) 0.2 0.0-2.0 % Neutrophils # (Auto) 7.0 1.6-8.6 10 ^3/uL Lymphocytes # (Auto) 1.3 0.4-5.4 10 ^3/uL Monocytes # (Auto) 1.2 0-1.3 10 ^3/uL Eosinophils # (Auto) 0.1 0-0.8 10 ^3/uL Basophils # (Auto) 0 0-0.2 10 ^3/uL Nucleated Red Blood Cells 0.7 % Prothrombin Time 16.3 H 9.3-11.8 sec Prothrombin Time INR 1.61 H 0.9-1.15 Activated Partial Thromboplast Time 30.1 24.5-34.5 SEC Sodium Level 119 *L 136-145 mmol/L Potassium Level 3.5 3.5-5.1 mmol/L Chloride Level 85 L 98-107 mmol/L Carbon Dioxide Level 24 20-31 mmol/L Anion Gap 10 5-15 Blood Urea Nitrogen 47 H 9-23 mg/dL Creatinine 3.37 H 0.550-1.02 mg/dL Glomerular Filtration Rate Calc 17 >90 mL/min BUN/Creatinine Ratio 13.9 10.0-20.0 Serum Glucose 103 74-106 mg/dL Calcium Level 8.9 8.7-10.4 mg/dL Iron Level 15 L 50-170 ug/dL Total Iron Binding Capacity 312 250-425 ug/dL Percent Iron Saturation 4.8 L 15-50 % Total Bilirubin 3.6 H 0.2-1.0 mg/dL Aspartate Amino Transferase (AST) 58 H 13-40 U/L Alanine Aminotransferase (ALT) 25 7-40 U/L Alkaline Phosphatase 119 H 46-116 U/L B-Type Natriuretic Peptide 360.86 0-100 pg/mL Total Protein 7.5 5.7-8.2 g/dL Albumin 3.5 3.2-4.8 g/dL Assessment/Plan Assessment/Plan Assessment Symptomatic anemia Acute renal failure Liver cirrhosis Transaminitis secondary to the above Coagulopathy Hyponatremia Plan Admit the patient to [facility] to the hospitalist Transfuse 3 units of packed red cells Nephrology consultation Q.6 hours sodium checks Continue treatment per orders. Plan discussed with: Patient My Orders Orders - KEL SANDOVAL AGACNMingo Procedure Category Date Status Time Admit ADMIT 08/24/24 Transmitted 19:33 Stool Occult Blood LAB 08/24/24 Logged 19:39 Packedcell-Noactive BBK 08/24/24 Logged Bleeding 19:39 Basic Metabolic Panel LAB 08/25/24 Verified 04:00 Ondansetron Hcl PHA 08/24/24 In Process (Zofran) 19:45 Complete Blood Count LAB 08/25/24 Verified 04:00 Condition: Stable RAFAEL 08/24/24 In Process 19:39 Acetaminophen Tablet PHA 08/24/24 In Process (Tylenol Tablet) 19:45 Bedrest With Bathroom RAFAEL 08/24/24 In Process Privileg 19:39 Hepatic Diet DIET 08/25/24 Transmitted (50gmpro,2gmna) Breakfast Sodium LAB 08/25/24 Verified 00:00 Sodium LAB 08/25/24 Verified 06:00 Sodium LAB 08/25/24 Verified 12:00 Sodium LAB 08/25/24 Verified 18:00 Sodium Chloride 0.9% PHA 08/24/24 In Process 19:45 Date of Service: Aug 24, 2024 Billing Provider: KEL SANDOVAL Common Visit Codes: [id number] INP/OBS CARE (HIGH) KEL SANDOVAL Aug 24, 2024 22:25
[2024-08-25] VITALS (16 sets, daily range): BP systolic 81–126; BP diastolic 41–78; PULSE 74–97; RESP 14–26; TEMP 97.8–99.2; O2SAT 95
--- NOTE | 2024-08-25 00:26 | DVH ---
INDICATION: renal failure TECHNIQUE: Multiple real-time sonographic images of the kidneys and bladder were obtained. COMPARISON: None FINDINGS / IMPRESSION: Right kidney measures 10.9 cm in length and the left kidney is slightly small measuring 8.1 cm. Both kidneys demonstrate normal echogenicity and cortical thickness. No mass or renal calculus is noted. N o hydronephrosis. Urinary bladder is non distended.
[2024-08-25 05:47] LABS: Basophils # (auto) 0 10 ^3/uL (0-0.2); Basophils % (auto) 0.3 % (0.0-2.0); Mean Corpuscular Hemoglobin 25.8 pg (28.0-32.0); Monocytes # (auto) 1.1 10 ^3/uL (0-1.3); Red Blood Cells 2.29 10^6/uL (4.0-5.20)
[2024-08-25 05:50] LABS: Eosinophils # (auto) 0.2 10 ^3/uL (0-0.8); Lymphocytes # (auto) 1.2 10 ^3/uL (0.4-5.4); Lymphocytes % (auto) 13.8 % (10.0-50.0); Mean Corpuscular Hgb Conc. 32.7 g/dL (32.0-36.0); Mean Corpuscular Volume 78.7 fL (80.0-100.0); Monocytes % (auto) 12.7 % (0.0-12.0); Neutrophils % (auto) 71.2 % (37.0-80.0); Nucleated Red Blood Cells % 0.2 %; Platelet Count (auto) 204 10^3/uL (140-450); White Blood Cell 8.5 10^3/uL (4.4-10.8)
[2024-08-25 05:54] LABS: Red Cell Distribution Width 20.8 % (11.8-14.3)
[2024-08-25 05:55] LABS: Anion Gap 11 (5-15); Carbon Dioxide 22 mmol/L (20-31)
[2024-08-25 05:57] LABS: Hemoglobin 5.9 g/dL (12.2-16.2)
[2024-08-25 06:01] LABS: BUN/Creatinine Ratio 16.1 (10.0-20.0); Calcium 8.3 mg/dL (8.7-10.4); Chloride 89 mmol/L (98-107); Glucose 101 mg/dL (74-106); Potassium 3.2 mmol/L (3.5-5.1); Sodium 122 mmol/L (136-145)
[2024-08-25 06:02] LABS: Blood Urea Nitrogen 44 mg/dL (9-23)
[2024-08-25 08:03] LABS: Protein, Urine 81.4 mg/dL (1-14)
[2024-08-25 08:04] LABS: Urine Bacteria FEW /hpf (None Seen); Urine Blood Negative /uL (Negative); Urine Clarity Turbid (Clear); Urine Color Yellow (Yellow); Urine Protein, UAD 1+ (Negative); Urine Specific Gravity 1.013 (1.001-1.035); Urine Squamous Epithelial Cell FEW /hpf (<5); Urine Urobilinogen Normal (Negative); Urine WBC 5 /HPF (0-5); Urine pH 5.5 (5.0-9.0)
[2024-08-25 08:06] LABS: Sodium Urine < 10 mmol/L (40-220)
[2024-08-25 09:09] LABS: Wright Stain Ready for Review
[2024-08-25 09:15] LABS: Albumin 3.4 g/dL (3.2-4.8); Total Protein 7.4 g/dL (5.7-8.2)
[2024-08-25 09:16] LABS: Bilirubin, Direct 3.5 mg/dL (<0.3); Bilirubin, Total 5.8 mg/dL (0.2-1.0); Magnesium 1.6 mg/dL (1.6-2.6)
[2024-08-25 09:17] LABS: Folate (Folic Acid) 13.53 ng/mL (>5.38)
[2024-08-25 09:32] LABS: Hematocrit 20.9 % (36.0-46.0)
[2024-08-25 09:34] LABS: Hemoglobin 6.9 g/dL (12.2-16.2)
--- NOTE | 2024-08-25 10:05 | DVH ---
INDICATION: cirrhosis TECHNIQUE: Multiple real-time sonographic images were obtained of the right upper quadrant. COMPARISON: None FINDINGS: Evaluation is limited due to obscuration from bowel gas and body habitus. The liver demonstrates increased and coarse echotexture without focal mass lesions trace perihepatic fluid.. The liver measures 20 cm. There is no intrahepatic or extrahepatic ductal dilatation. The co mmon duct measures 4 mm. The gallbladder is without evidence of stone . Possible gallbladder sludge versus artifact. The gall bladder wall measures 6 mm and is within normal limits. The right kidney measures 13 cm. The right kidney is normal in contour, size, and shape. The echogen icity is normal. There is no hydronephrosis. The pancreas is not well visualized due to overlying bowel gas. IMPRESSION: Coarsened liver echotexture and hepatomegaly suggestive of chronic liver disease. Trace ascites. Nonspecific gallbladder wall thickening which can be seen in the setting of chronic liver disease. Po ssible gallbladder sludge versus artifact.
[2024-08-25 11:43] LABS: Anion Gap 8 (5-15); Carbon Dioxide 24 mmol/L (20-31)
[2024-08-25 11:48] LABS: BUN/Creatinine Ratio 18.1 (10.0-20.0); Blood Urea Nitrogen 41 mg/dL (9-23); Calcium 8.3 mg/dL (8.7-10.4); Chloride 90 mmol/L (98-107); Glucose 98 mg/dL (74-106); Potassium 3.2 mmol/L (3.5-5.1); Sodium 122 mmol/L (136-145)
--- NOTE | 2024-08-25 12:34 | DVH ---
INDICATION: AUB TECHNIQUE: Multiple real-time grayscale transabdominal and transvaginal sonographic images along with color and duplex Doppler of the uterus and ovaries were obtained. COMPARISON: None FINDINGS: The uterus measures 8.8 x 5.0 x 4.8 cm. The endometrial stripe measures 0.2 cm. Uterine fun soraya fibroid is present measuring 1.8 cm. Masslike structure is seen in the left adnexal region measuring 4.2 cm. Ovaries are not visualized. IMPRESSION: Leiomyomatous uterus. Masslike structure is present in the left adnexa which may represent an exophytic fibroid off of the left aspect of the uterus measuring 4.2 cm. Ovaries are not visualized.
--- NOTE | 2024-08-25 14:45 | DVHPNRES ---
Progress Note Date Seen: Aug 25, 2024 Resident Creating Document: BRENDA HITCHCOCK RESIDENT Medical Necessity Reason Pt with a Central, PICC or Fol: No Subjective Review of Systems Ms. Ferreira is a 38-year-old female with a history of miscarriages last one 5 years ago, anemia, nose bleeding, history of blood transfusion 06/2024, does not follow up with primary care physician, was sent to the ER from some clinic due to low hemoglobin levels. Patient reports worsening shortness of breath for the past week, now unable to walk for few steps without getting dyspneic, denies orthopnea or PND. Reports bilateral lower extremity swelling. Associated symptoms include lightheadedness, dizziness, fatigue cell and palpitations. She reports abnormal uterine bleeding, irregular menstruation since the age of 26. Last menstrual period was 10 days back and it continued for 3 weeks in which she passed heavy clots. She reports she got transfusion June 2024 when she had excessive nosebleed. Also reports easy bruising. During admission, Overnight was febrile 99.1. Hemoglobin was 4.2, tonsils 3 RBCs, repeat hemoglobin 6.9. One packed RBC ordered. One FFP ordered. BNP remarkable for hyponatremia, sodium 119, creatinine 3.3 possible ATN due to hypoperfusion Past medical/surgical history: See above Home medications: None Family history: Sister with heavy menorrhagia, history of cirrhosis and father Social history: Patient drank 1 bottle of vodka every day from 2019 to 2024, quit 4 months back. Last used marijuana 3 years back, denies illicit drug use 08/25 - Patient seen and examined at the bedside. Overnight was febrile 99.1. Hemoglobin was 4.2, tonsils 3 RBCs, repeat hemoglobin 6.9. One packed RBC ordered. One FFP ordered. BNP remarkable for hyponatremia, sodium 119, creatinine 3.3 possible ATN due to hypoperfusion. Nephrology started Lasix 40 b.i.d. IV 08/26-patient seen in his diminished bedside. Reports feeling much better. Hemoglobin 7.4. Ferrous sulfate tablet started. Creatinine trended down to 1.3 Objective vital signs Vital Sign Date Time Temp Pulse Resp B/P (MAP) Pulse Ox O2 Delivery O2 Flow Rate FiO2 08/25/24 14:08 98.7 84 24 97/59 (72) 97 98.7 08/25/24 07:40 Room Air* 0 21 Total Intake and Output 08/24/24 08/24/24 08/25/24 15:00 23:00 07:00 Intake Total 600 ml 2200 ml Output Total 540 ml Balance 600 ml 1660 ml medications Current Medications Medications Dose Ordered Sig/Bárbara Route Start Time Stop Time Status Last Admin Dose Admin Ondansetron HCl 4 mg Q4HP PRN IV 08/24/24 19:45 Acetaminophen 650 mg Q6HP PRN PO 08/24/24 19:45 Examination Obese female patient lying in bed, in no acute distress General: Obese,, afebrile, palor, mucosae are moist, has a scleral icterus Cardiovascular: Regular S1 and S2. No murmurs, gallops or rubs. No JVD elevation. Bilateral 3+ pitting edema Respiratory: Normal B/L air entry on room air. Clear lung sounds on auscultation Abdomen: Soft, nontender, nondistended, normoactive bowel sounds, no rebound tenderness, no organomegaly, no masses Genitourinary: Deferred MSK/skin: Mobilizes 4 limbs. Skin is dry and warm Neurological: No motor, no sensitive deficits, normal speech. Pupils are isocoric and reactive. Psych/Mental Status: A/Ox3 laboratory and microbiology Laboratory Tests 08/25/24 11:24 08/25/24 08:40 08/25/24 05:29 Test 08/25/24 11:24 Range/Units Serum Glucose 98 74-106 mg/dL Labs and/or images reviewed: Labs reviewed by me, Image(s) reviewed by me Problem List/Assessment/Plan Problem List/Assessment/Plan Acute blood loss anemia secondary to menorrhagia and abnormal uterine bleeding possible secondary to uterine fibroids Rule out hemolytic anemia Iron-deficiency anemia Uterine fibroids Suspected endometriosis Pelvic ultrasound shows Masslike structure is present in the left adnexa which may represent an exophytic fibroid off of the left aspect of the uterus measuring 4.2 cm. Status post 3 packed RBC transfusion, 1 packed RBC and 1 FFP pending. Corrected reticulocyte 1.8, reticulocyte reduction index 0.7 ...... Inadequate response LDH unremarkable, Columba test negative, haptoglobin WNL Indirect bilirubin 2.3, direct bilirubin 3.5 OBGYN -recommended follow up with higher level of care for further workup Transaminitis Chronic liver disease Chronic alcoholic dependence History of cholelithiasis Liver ultrasound showed Coarsened liver echotexture and hepatomegaly suggestive of chronic liver disease. Trace ascites. Nonspecific gallbladder wall thickening which can be seen in the setting of chronic liver disease. Possible gallbladder sludge versus artifact. Hyponatremia, hypotonic likely beer potomania versus chronic liver disease Hypokalemia Serum osmolality 266, urine osmolality 268 Sodium up trending, now 128 Electro Mechanical Solar Technician recommended IV Lasix 40 mg bid for now, strict 1000 ml / 24 hours oral fluid restriction U/O increased and renal function improved. Acute kidney injury, likely acute tubular necrosis secondary to hypoperfusion versus prerenal azotemia FENA 0.1 which is prerenal Renal ultrasound was remarkable Vitamin-D deficiency Supplemented Plan discussed with patient in which all questions have been answered Goals of care discussed for more than 20 minutes, full code status Case discussed with Dr. Hazel Plan discussed with: Patient My Orders My Orders Orders - BRENDA HITCHCOCK Procedure Category Date Status Time LIVER US 08/25/24 Resulted 07:58 Afp Serum Tumor Marker LAB 08/25/24 In Process 07:58 Haptoglobin LAB 08/25/24 In Process 07:58 Pelvic US 08/25/24 Resulted 09:56 * Head Of Quality Consultation CONS 08/25/24 Transmitted 09:56 Packedcell-Noactive BBK 08/25/24 In Process Bleeding 10:24 Frozen Plasma BBK 08/25/24 In Process 10:24 CC Plasma Assessment Blood Product Administration S: 1400 Date of Service: Aug 25, 2024 Billing Provider: ARON HAZEL DO Common Visit Codes: [id number] INP/OBS CARE(HIGH) BRENDA HITCHCOCK Aug 25, 2024 14:45 ARON HAZEL DO Aug 26, 2024 16:50
[2024-08-25] MEDS: FOLIC ACID 1 MG TAB PO ONE (15:27)
[2024-08-25] MEDS: THIAMINE 100mg/ml INJ (200mg/2ml VIAL) IV ONE (15:40)
--- NOTE | 2024-08-25 15:47 | DVHCONRES ---
Date Seen: Aug 25, 2024 Resident Creating Document: FARRAH MORRISON RESIDENT Referring Physician Pretty Henley Reason for Consultation Acute Renal Failure. History of Present Illness Ms. 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 She reports worsening shortness of breath, bilateral lower extremity swelling, light headedness, dizziness, fatigue, palpitations, and abnormal uterine bleeding. Her last menstrual period lasted three weeks with heavy clots. She denies presyncope, hematuria, or melena but has a history of anemia and heavy menstrual cycles. She received a blood transfusion in June 2024 for excessive nosebleeds and has a history of easy bruising. During admission, she was febrile with a hemoglobin level of 4.2, which increased to 6.9 after receiving one packed RBC and one FFP. Her BNP indicated hyponatremia and possible acute tubular necrosis due to hypoperfusion. She has no home medications, a family history of heavy menorrhagia and cirrhosis, and a social history of heavy alcohol use until four months ago. Her baseline hemoglobin is around 8, and she presented with 4.2 after receiving 3 units of PRBC. Patient seen and examined at the bedside. Overnight was febrile 99.1. Hemoglobin was 4.2, tonsils 3 RBCs, repeat hemoglobin 6.9. One packed RBC ordered. One FFP ordered. BNP remarkable for hyponatremia, sodium 119, creatinine 3.3 possible ATN due to hypoperfusion. Past Medical History Chronic kidney disease, liver, anemia, menometrorrhagea Past Surgical History denies. Family History: Diabetes mellitus G8 MOTHER Family History Sister with heavy menorrhagia, history of cirrhosis and father Social History Lives: with Family Patient drank 1 bottle of vodka every day from 2019 to 2024, quit 4 months back. Last used marijuana 3 years back, denies illicit drug use Allergies: Coded Allergies: Ketorolac Tromethamine (Verified Allergy, Severe, dizziness, 06/13/24) Penicillins (Verified Allergy, Mild, dizziness, 06/13/24) Current Medications Current Medications Medications (Trade) Dose Ordered Sig/Bárbara Route PRN Reason Start Time Stop Time Status Last Admin Ondansetron HCl (Zofran) 4 mg Q4HP PRN IV NAUSEA / VOMITING 08/24/24 19:45 Acetaminophen (Tylenol Tablet) 650 mg Q6HP PRN PO PAIN SCALE 1-3 OR TEMP>100.4 08/24/24 19:45 Potassium Chloride 50 ml @ 25 mls/hr Q2H IV 08/25/24 15:30 08/25/24 19:29 Sodium Chloride 100 ml @ 50 mls/hr Q2H IV 08/25/24 15:30 08/25/24 19:29 Review of Systems General: Weak, SOB. HEENT:Normal, CVS:Normal, RESPIRATORY:Normal, GI:Normal,swelling of abdome, :Normal, spotting, 3 week long heavy menstruati on, MSK:Normal,icterus, NEURO:Normal Vital Signs Vital Signs Date Time Temp Pulse Resp B/P (MAP) Pulse Ox O2 Delivery O2 Flow Rate FiO2 08/25/24 14:08 98.7 84 24 97/59 (72) 97 98.7 08/25/24 07:40 Room Air* 0 21 Physical Exam General: comfortable, HEENT:Pallor, icterus, CVS:Normal, RESPIRATORY:Normal, RA, GI: Normal,swelling of abdomen, flank full, fluid thrill, lower border of liver palpable, non-tender, no guarding, :Normal, spotting (as per patient no active bleeding., avoided examination, patient is public area in ED), MSK: pitting edema 2+ NEURO:Normal, no asterixis. Labs/Diagnostic Data Labs Test 08/25/24 11:24 08/25/24 08:40 08/25/24 07:25 08/25/24 05:29 Range/Units Sodium Level 122 L 136-145 mmol/L Potassium Level 3.2 L 3.5-5.1 mmol/L Chloride Level 90 L 98-107 mmol/L Carbon Dioxide Level 24 20-31 mmol/L Anion Gap 8 5-15 Blood Urea Nitrogen 41 H 9-23 mg/dL Creatinine 2.26 H 0.550-1.02 mg/dL Glomerular Filtration Rate Calc 28 >90 mL/min BUN/Creatinine Ratio 18.1 10.0-20.0 Serum Glucose 98 74-106 mg/dL Calcium Level 8.3 L 8.7-10.4 mg/dL Hemoglobin 6.9 #*L 12.2-16.2 g/dL Hematocrit 20.9 #L 36.0-46.0 % Reticulocyte Count (auto) 3.77 H 0.5-1.5 % Serum Osmolality 266 L 278-298 mOsm/kg Magnesium Level 1.6 1.6-2.6 mg/dL Total Bilirubin 5.8 H 0.2-1.0 mg/dL Direct Bilirubin 3.5 H <0.3 mg/dL Aspartate Amino Transferase (AST) 58 H 13-40 U/L Alanine Aminotransferase (ALT) 27 7-40 U/L Alkaline Phosphatase 107 46-116 U/L Lactate Dehydrogenase 198 120-246 U/L Total Protein 7.4 5.7-8.2 g/dL Albumin 3.4 3.2-4.8 g/dL Vitamin B12 Level 2199 H 211-911 pg/mL Vitamin D 25-Hydroxy 24.5 L 30.0-100 ng/mL Folic Acid 13.53 >5.38 ng/mL Thyroid Stimulating Hormone (TSH) 3.78 0.55-4.78 uIU/mL Parathyroid Hormone (Intact) 68.8 18.4-80.1 pg/mL HIV (1&2) Antibody Negative Negative Urine Color Yellow Yellow Urine Clarity Turbid H Clear Urine pH 5.5 5.0-9.0 Urine Specific [place] 1.013 1.001-1.035 Urine Protein 1+ H Negative Urine Ketones Negative Negative Urine Blood Negative Negative /uL Urine Nitrite Negative Negative Urine Bilirubin Negative Negative Urine Urobilinogen Normal Negative mg/dL Urine Leukocyte Esterase Negative Negative /uL Urine RBC 1 0 - 4 /hpf Urine Microscopic WBC 5 0-5 /HPF Urine Squamous Epithelial Cells Few <5 /hpf Urine Bacteria Few H None Seen /hpf Urine Osmolality 268 mOsm/kg Urine Creatinine 187.44 H 30.0-125.0 mg/dL Urine Sodium < 10 L 40-220 mmol/L Urine Glucose Normal Normal mg/dL Urine Total Protein 81.4 H 1-14 mg/dL White Blood Count 8.5 4.4-10.8 10^3/uL Red Blood Count 2.29 L 4.0-5.20 10^6/uL Mean Corpuscular Volume 78.7 L 80.0-100.0 fL Mean Corpuscular Hemoglobin 25.8 L 28.0-32.0 pg Mean Corpuscular Hemoglobin Concent 32.7 32.0-36.0 g/dL Red Cell Distribution Width 20.8 H 11.8-14.3 % Platelet Count 204 140-450 10^3/uL Mean Platelet Volume 8.8 6.9-10.8 fL Neutrophils (%) (Auto) 71.2 37.0-80.0 % Lymphocytes (%) (Auto) 13.8 10.0-50.0 % Monocytes (%) (Auto) 12.7 H 0.0-12.0 % Eosinophils (%) (Auto) 2.0 0.0-7.0 % Basophils (%) (Auto) 0.3 0.0-2.0 % Neutrophils # (Auto) 6.0 1.6-8.6 10 ^3/uL Lymphocytes # (Auto) 1.2 0.4-5.4 10 ^3/uL Monocytes # (Auto) 1.1 0-1.3 10 ^3/uL Eosinophils # (Auto) 0.2 0-0.8 10 ^3/uL Basophils # (Auto) 0 0-0.2 10 ^3/uL Nucleated Red Blood Cells 0.2 % Test 08/25/24 03:10 08/24/24 17:41 Range/Units Stool Occult Blood Negative Negative Stool Occult Blood Sample #3 Negative Prothrombin Time 16.3 H 9.3-11.8 sec Prothrombin Time INR 1.61 H 0.9-1.15 Activated Partial Thromboplast Time 30.1 24.5-34.5 SEC Iron Level 15 L 50-170 ug/dL Total Iron Binding Capacity 312 250-425 ug/dL Percent Iron Saturation 4.8 L 15-50 % B-Type Natriuretic Peptide 360.86 0-100 pg/mL Assessment #MARSHALL likely prerenal sec to hemorrhage , possibility of hepatorenal syndrome yet to rule out. hyponatremia #Hypovitaminosis D #chronic liver disease, Trace ascites. Likely liver cirrhosis, workup pending. #Acute blood loss anemia, heavy vaginal bleeding #Secondary hypocoagulable state with elevated, INR 1.6 Findings: #GFR: 17> 22 >28 #FeNa: 0.1% prerenal. #Creatinine: 3.37>2.74>2.26 (Baseline 0.9, 06/2024) #BUN: 47>44>41 #I&O: 2800-540= (+2260) #Fluid status: overloaded. #Urine : Protein: Cr. 0.4 gram daily. #Kidney Ultrasound: unremarkable. #UA Turbid? ATN #CrCl 57ml/min Plan/Recommendation #IV lasix 40 mg bid for now, strict 1000 ml / 24 hours oral fluid restriction. #Strict I&O and check Daily weight,Avoid Nephrotoxics ,Avoid hyper/hypo tension ,Fluid Restriction. Avoid fast Na correction 6-8meq/24 hours. obgyn eval /heme eval #Follow up urine osmolality, urine BUN, uric acid. #Correct potassium, vitamin D supplementation. #Rest of the management as per primary team. Thank you for the opportunity to follow up on your patient. In case of any question feel free to reach out to the Nephrology team. Will follow up. Discussed with Nephrology attending Dr. Huang. Addendum Patient seen and examined, plan discussed with resident. Agree with above, we will follow closely Plan discussed with: Patient, Other (RN, primary team. ) FARRAH MORRISON Aug 25, 2024 15:47 EDEL HUANG MD Aug 25, 2024 20:06
[2024-08-25] MEDS: ERGOCALCIFEROL 50,000 UNIT(1.25MG) CAP PO SCH (16:52)
[2024-08-25] MEDS: MAGNESIUM SULFATE 1GM/100ML 100 ML IV ONE (17:09)
[2024-08-25] MEDS: POTASSIUM CHL 20MEQ/50ML 50 ML IV SCH (18:13)
[2024-08-25] MEDS: SODIUM CHL 0.9% 100 ML IV SCH (18:13)
[2024-08-25] MEDS ORDERED: FUROSEMIDE 20 MG/2 ML VIAL IV SCH (19:00)
[2024-08-25 19:27] LABS: Hematocrit 23.6 % (36.0-46.0); Hemoglobin 7.8 g/dL (12.2-16.2)
[2024-08-25] MEDS: POTASSIUM CHL 20 Meq TABLET PO ONE (22:28)
[2024-08-25] MEDS: THIAMINE HCL 100 MG TAB PO ONE (22:28)
[2024-08-25] MEDS: FUROSEMIDE 20 MG/2 ML VIAL IV SCH (22:28)
[2024-08-26 08:00] VITALS: PULSE 93; RESP 18; O2SAT 93
[2024-08-26 08:13] LABS: Eosinophils # (auto) 0.2 10 ^3/uL (0-0.8); Hematocrit 22.1 % (36.0-46.0); Hemoglobin 7.4 g/dL (12.2-16.2); Lymphocytes # (auto) 1.3 10 ^3/uL (0.4-5.4); Mean Corpuscular Hemoglobin 27.2 pg (28.0-32.0); Nucleated Red Blood Cells % 0.2 %
[2024-08-26 08:15] LABS: Basophils # (auto) 0.1 10 ^3/uL (0-0.2); Basophils % (auto) 0.6 % (0.0-2.0); Lymphocytes % (auto) 14.4 % (10.0-50.0); Mean Corpuscular Hgb Conc. 33.4 g/dL (32.0-36.0); Mean Corpuscular Volume 81.3 fL (80.0-100.0); Monocytes # (auto) 1.1 10 ^3/uL (0-1.3); Monocytes % (auto) 12.8 % (0.0-12.0); Neutrophils # (auto) 6.3 10 ^3/uL (1.6-8.6); Neutrophils % (auto) 70.2 % (37.0-80.0); Platelet Count (auto) 255 10^3/uL (140-450); Red Blood Cells 2.72 10^6/uL (4.0-5.20); Red Cell Distribution Width 19.6 % (11.8-14.3)
[2024-08-26 08:26] LABS: Alanine Aminotransferase 28 U/L (7-40); Albumin 3.4 g/dL (3.2-4.8); Alkaline Phosphatase 104 U/L (46-116); Anion Gap 10 (5-15); BUN/Creatinine Ratio 27.5 (10.0-20.0); Calcium 8.7 mg/dL (8.7-10.4); Carbon Dioxide 23 mmol/L (20-31); Glucose 92 mg/dL (74-106); Magnesium 1.7 mg/dL (1.6-2.6); Total Protein 7.4 g/dL (5.7-8.2)
[2024-08-26 08:27] LABS: Phosphorus 3.2 mg/dL (2.4-5.1)
[2024-08-26 08:33] LABS: Aspartate Aminotransferase 65 U/L (13-40); Bilirubin, Total 6.6 mg/dL (0.2-1.0); Blood Urea Nitrogen 36 mg/dL (9-23); Chloride 95 mmol/L (98-107); Potassium 3.2 mmol/L (3.5-5.1); Sodium 128 mmol/L (136-145)
[2024-08-26] MEDS ORDERED: POTASSIUM CHL 20MEQ/100ML 100 ML IV SCH (09:00)
[2024-08-26 09:29] VITALS: BP 112/61; PULSE 93; RESP 18; TEMP 98.8; O2SAT 93
[2024-08-26] MEDS ORDERED: POTASSIUM CHL 20MEQ/50ML 50 ML IV SCH (09:30)
[2024-08-26] MEDS: FERROUS SULFATE 325mg EC TAB PO ONE (10:32)
[2024-08-26] MEDS: MAGNESIUM SULFATE 1GM/100ML 100 ML IV ONE (10:35)
[2024-08-26] MEDS: THIAMINE HCL 100 MG TAB PO SCH (10:41)
--- NOTE | 2024-08-26 12:33 | DVHPNRES ---
Progress Note Date Seen: Aug 26, 2024 Resident Creating Document: FARRAH MORRISON RESIDENT Medical Necessity Reason Pt with a Central, PICC or Fol: No Subjective Patient reports: Feels better Changes from previous H/P or p: No Changes Objective vital signs Vital Sign Date Time Temp Pulse Resp B/P (MAP) Pulse Ox O2 Delivery O2 Flow Rate FiO2 08/26/24 09:29 98.8 93 18 112/61 (78) 93 98.8 08/25/24 22:00 Room Air* 0 21 Total Intake and Output 08/25/24 08/25/24 08/26/24 15:00 23:00 07:00 Intake Total 680 ml 700 ml 100 ml Output Total 0 ml 0 ml 1950 ml Balance 680 ml 700 ml -1850 ml medications Current Medications Medications Dose Ordered Sig/Bárbara Route Start Time Stop Time Status Last Admin Dose Admin Ondansetron HCl 4 mg Q4HP PRN IV 08/24/24 19:45 Acetaminophen 650 mg Q6HP PRN PO 08/24/24 19:45 Ergocalciferol 50,000 unit Q7D PO 08/25/24 15:45 08/25/24 16:52 50,000 UNIT Thiamine HCl 100 mg DAILY PO 08/26/24 10:00 08/26/24 10:41 100 MG Furosemide 40 mg BIDD IV 08/25/24 20:00 08/26/24 06:05 40 MG Potassium Chloride 100 ml @ 50 mls/hr Q2H IV 08/26/24 09:00 08/26/24 12:59 UNV Examination General: comfortable, HEENT:Pallor, icterus, CVS:Normal, RESPIRATORY:Normal, RA, GI: Normal,swelling of abdomen, flank full, fluid thrill, lower border of liver palpable, non-tender, no guarding, :Normal, spotting (as per patient no active bleeding., avoided examination, patient is public area in ED), MSK: pitting edema 2+ NEURO:Normal, no asterixis. laboratory and microbiology Laboratory Tests 08/26/24 06:45 Test 08/26/24 06:45 Range/Units Serum Glucose 92 74-106 mg/dL Labs and/or images reviewed: Labs reviewed by me, Image(s) reviewed by me Problem List/Assessment/Plan Problem List/Assessment/Plan Ms. Ferreira, a 38-year-old female with a history of recurrent miscarriages, anemia, and nosebleeds, was sent to the ER for low hemoglobin levels. She reported worsening shortness of breath, swelling, lightheadedness, dizziness, fatigue, palpitations, and abnormal uterine bleeding, with her last menstrual period lasting three weeks with heavy clots. She denied presyncope, hematuria, or melena but has a history of heavy menstrual cycles and easy bruising. She received a blood transfusion in June 2024 for excessive nosebleeds. During admission, she presented with hemoglobin level of 4.2 (baseline 8), s/p 3 prbc and one FFP. She was found to be hyponatremic and possible acute tubular necrosis due to hypoperfusion. She has no home medications, due to lack of insurance poor healthcare follow up, and a social history of heavy alcohol use (1 bottle vodka daily for 5 years roughly) until four months ago. She is hemodynamically stable and feels better post transfusion. Assessment: #MARSHALL likely prerenal hypoperfusion, sec to hemorrhage. #hyponatremia, hypotonic, hypervolumic improving #Hypovitaminosis D #Recurrent hypokalemia with diuresis #chronic liver disease, Trace ascites. Questionable early liver cirrhosis, workup pending. #Acute blood loss anemia, heavy vaginal bleeding FOBT -ve. reccurent miscarriages, hemophilia or von Willebrand disease in d/d #Secondary hypocoagulable state with elevated, INR 1.6 #Uterine leomyoma #mild asymmetric left ventricular hypertrophy Findings: #Na 119>121>122>122>125>128 #S/p 3 PRBC hnh stable with pletlets #GFR: 17> 22 >28 >54 #FeNa: 0.1% prerenal #Creatinine: 3.37>2.74>2.26>1.31 (Baseline 0.9, 06/2024) #BUN: 47>44>41>36 #I&O: 2986-6433=(-470) 40Xbid iv lasix #Fluid status: still overloaded. #Urine : Protein: Cr. 0.4 gram daily. #Kidney Ultrasound: unremarkable. #UA Turbid? ATN, urine osmolality 268 #CrCl 57ml/min #PTH normal, magnesium, phosphorus wnl. #Urine protein: creatinine=0.4g/day #BUN:Cr. 27.8 (>20 prerenal azotemia) Plan/Recommendation: # IV Lasix 40 mg bid for now, strict 1000 ml / 24 hours oral fluid restriction U/O increased and renal function improved. # Avoid fast Na correction 6-8meq/24 hours with close TID BMP. # added 25 meq bid potassium oral while the patient is on iv lasix. continue vitamin D supplementation. # Strict I&O and check Daily weight,Avoid Nephrotoxics, Avoid hyper/hypo tension ,Fluid Restriction. # Rest of the management as per primary team. Close, obgyn eval /heme eval/ GI. Detailed hematological workup needed. Thank you for the opportunity to follow up on your patient. In case of any question feel free to reach out to the Nephrology team. Will follow up. Discussed with Nephrology attending Dr. Barajas. Addendum Patient seen and examined, plan discussed with resident. Agree with above, we will follow closely Plan discussed with: Patient, Other (primary team, RN) My Orders My Orders Orders - FARRAH MORRISON Procedure Category Date Status Time Osmolality Urine LAB 08/26/24 Logged 04:00 Thiamine Tab PHA 08/26/24 In Process 10:00 Maintain Fluid RAFAEL 08/25/24 In Process Restrictions 19:18 Communication Order ORDERS 08/25/24 Transmitted 19:18 CC Plasma Assessment Blood Product Administration S: 1400 FARRAH MORRISON Aug 26, 2024 12:33 EDEL BARAJAS MD Aug 26, 2024 15:28
[2024-08-26 12:46] VITALS: BP 107/63; PULSE 89; RESP 18; TEMP 99.7; O2SAT 95
[2024-08-26] MEDS: POTASSIUM CHLORIDE 40 MEQ, LIDOCAINE 1% (LOCAL ANESTH.) 4 ML in SODIUM CHL 0.9% 250 ML IV ONE (12:57)
--- NOTE | 2024-08-26 14:30 | DVHINCON2 ---
Date of service: Aug 26, 2024 Referring Physician HOSPITALIST Reason for Consultation ANEMIA,MENORRHAGIA History of Present Illness PT IS ADMITTED FRO AUB,MENORRHAGIA AND ANEMIA.SHE HAS HX OF BLOOD TRANSFUSION Past Medical History LIVER DS,CKD,ANEMAI Past Surgical History NA Family History NA Social History TWO SAB Patient Family History: Diabetes mellitus G8 MOTHER FH: anemia G8 MOTHER FH: cirrhosis G8 FATHER Hypertension G8 MOTHER Allergies: Coded Allergies: Ketorolac Tromethamine (Verified Allergy, Severe, dizziness, 06/13/24) Penicillins (Verified Allergy, Mild, dizziness, 06/13/24) Home Meds No Active Prescriptions or Reported Meds Current Medications Current Medications Medications (Trade) Dose Ordered Sig/Bárbara Route PRN Reason Start Time Stop Time Status Last Admin Potassium Chloride 50 ml @ 25 mls/hr Q2H IV 08/25/24 15:30 08/25/24 19:29 DC 08/25/24 18:13 Sodium Chloride 100 ml @ 50 mls/hr Q2H IV 08/25/24 15:30 08/25/24 18:59 DC 08/25/24 18:13 Ergocalciferol (Vitamin D 50,000 Unit) 50,000 unit Q7D PO 08/25/24 15:45 08/25/24 16:52 Furosemide (Lasix Injection) 20 mg BIDD IV 08/25/24 19:00 08/25/24 20:01 DC Thiamine HCl 100 mg DAILY PO 08/26/24 10:00 08/26/24 10:41 Furosemide (Lasix Injection) 40 mg BIDD IV 08/25/24 20:00 08/26/24 06:05 Potassium Chloride 100 ml @ 50 mls/hr Q2H IV 08/26/24 09:00 08/26/24 12:59 UNV Potassium Chloride 50 ml @ 25 mls/hr Q2H IV 08/26/24 09:30 08/26/24 11:53 DC Potassium Bicarbonate (Klor-Con/Ef) 25 meq BID GT 08/26/24 22:00 UNV Review of Systems C/W HPI Vital Signs Vital Signs Date Time Temp Pulse Resp B/P (MAP) Pulse Ox O2 Delivery O2 Flow Rate FiO2 08/26/24 12:46 99.7 89 18 107/63 (78) 95 99.7 08/26/24 08:00 Room Air* 0 21 Physical Exam HEENT PALE CONJUCTIVA ABD SOFT ,NT BREASTS SYMMETRICAL PELVIC-VAG SOME BLEEDING,CX NL,UTERUS 8 WKS SIZE Labs/Diagnostic Data Labs Test 08/26/24 06:45 08/25/24 08:40 08/25/24 07:25 08/25/24 05:29 Range/Units White Blood Count 9.0 4.4-10.8 10^3/uL Red Blood Count 2.72 L 4.0-5.20 10^6/uL Hemoglobin 7.4 L 12.2-16.2 g/dL Hematocrit 22.1 L 36.0-46.0 % Mean Corpuscular Volume 81.3 80.0-100.0 fL Mean Corpuscular Hemoglobin 27.2 L 28.0-32.0 pg Mean Corpuscular Hemoglobin Concent 33.4 32.0-36.0 g/dL Red Cell Distribution Width 19.6 H 11.8-14.3 % Platelet Count 255 140-450 10^3/uL Mean Platelet Volume 8.6 6.9-10.8 fL Neutrophils (%) (Auto) 70.2 37.0-80.0 % Lymphocytes (%) (Auto) 14.4 10.0-50.0 % Monocytes (%) (Auto) 12.8 H 0.0-12.0 % Eosinophils (%) (Auto) 2.0 0.0-7.0 % Basophils (%) (Auto) 0.6 0.0-2.0 % Neutrophils # (Auto) 6.3 1.6-8.6 10 ^3/uL Lymphocytes # (Auto) 1.3 0.4-5.4 10 ^3/uL Monocytes # (Auto) 1.1 0-1.3 10 ^3/uL Eosinophils # (Auto) 0.2 0-0.8 10 ^3/uL Basophils # (Auto) 0.1 0-0.2 10 ^3/uL Nucleated Red Blood Cells 0.2 % Sodium Level 128 L 136-145 mmol/L Potassium Level 3.2 L 3.5-5.1 mmol/L Chloride Level 95 L 98-107 mmol/L Carbon Dioxide Level 23 20-31 mmol/L Anion Gap 10 5-15 Blood Urea Nitrogen 36 H 9-23 mg/dL Creatinine 1.31 #H 0.550-1.02 mg/dL Glomerular Filtration Rate Calc 54 >90 mL/min BUN/Creatinine Ratio 27.5 H 10.0-20.0 Serum Glucose 92 74-106 mg/dL Uric Acid 12.0 H 3.1-7.8 mg/dL Calcium Level 8.7 8.7-10.4 mg/dL Phosphorus Level 3.2 2.4-5.1 mg/dL Magnesium Level 1.7 1.6-2.6 mg/dL Total Bilirubin 6.6 H 0.2-1.0 mg/dL Aspartate Amino Transferase (AST) 65 H 13-40 U/L Alanine Aminotransferase (ALT) 28 7-40 U/L Alkaline Phosphatase 104 46-116 U/L Total Protein 7.4 5.7-8.2 g/dL Albumin 3.4 3.2-4.8 g/dL Reticulocyte Count (auto) 3.77 H 0.5-1.5 % Haptoglobin 121 33-278 mg/dL Serum Osmolality 266 L 278-298 mOsm/kg Direct Bilirubin 3.5 H <0.3 mg/dL Lactate Dehydrogenase 198 120-246 U/L Vitamin B12 Level 2199 H 211-911 pg/mL Vitamin D 25-Hydroxy 24.5 L 30.0-100 ng/mL Folic Acid 13.53 >5.38 ng/mL Thyroid Stimulating Hormone (TSH) 3.78 0.55-4.78 uIU/mL Parathyroid Hormone (Intact) 68.8 18.4-80.1 pg/mL HIV (1&2) Antibody Negative Negative Urine Color Yellow Yellow Urine Clarity Turbid H Clear Urine pH 5.5 5.0-9.0 Urine Specific [place] 1.013 1.001-1.035 Urine Protein 1+ H Negative Urine Ketones Negative Negative Urine Blood Negative Negative /uL Urine Nitrite Negative Negative Urine Bilirubin Negative Negative Urine Urobilinogen Normal Negative mg/dL Urine Leukocyte Esterase Negative Negative /uL Urine RBC 1 0 - 4 /hpf Urine Microscopic WBC 5 0-5 /HPF Urine Squamous Epithelial Cells Few <5 /hpf Urine Bacteria Few H None Seen /hpf Urine Osmolality 268 mOsm/kg Urine Creatinine 187.44 H 30.0-125.0 mg/dL Urine Sodium < 10 L 40-220 mmol/L Urine Glucose Normal Normal mg/dL Urine Total Protein 81.4 H 1-14 mg/dL Tumor Marker Alpha Fetoprotein 2.5 0.0-6.4 ng/mL Test 08/25/24 03:10 08/24/24 17:41 Range/Units Stool Occult Blood Negative Negative Stool Occult Blood Sample #3 Negative Prothrombin Time 16.3 H 9.3-11.8 sec Prothrombin Time INR 1.61 H 0.9-1.15 Activated Partial Thromboplast Time 30.1 24.5-34.5 SEC Iron Level 15 L 50-170 ug/dL Total Iron Binding Capacity 312 250-425 ug/dL Percent Iron Saturation 4.8 L 15-50 % B-Type Natriuretic Peptide 360.86 0-100 pg/mL Primary Diagnosis MENORRHAGIA WITH ANEMIA 2' Diagnosis/Comorbidities LIVER DS,CKD Plan RECOMMEND FU AT HIGHER LEVEL OF CARE FOR WK UP AND TX Plan discussed with: Patient Visit Coding OBGYN Date of Service: Aug 26, 2024 Billing Provider: ABE LAWLER DO UNDERWEAR WELTER Common Visit Codes: 07855-KQT/OBS SAME DATE (HIGH) UNDERWEAR WELTER Consultation Codes: 81019-[id number] CONSULT <110MIN ABE LAWLER DO Aug 26, 2024 14:30
[2024-08-26 17:00] VITALS: BP 100/55; PULSE 84; RESP 18; TEMP 98.4; O2SAT 94
[2024-08-26 20:00] VITALS: PULSE 69; RESP 18; O2SAT 96
[2024-08-26 21:00] VITALS: BP 151/88; PULSE 69; RESP 18; TEMP 98.7; O2SAT 96
[2024-08-26] MEDS: POTASSIUM EFFERVESENT TAB 25 MEQ GT SCH (21:32)
[2024-08-27] VITALS (7 sets, daily range): BP systolic 102–112; BP diastolic 49–62; PULSE 91–95; RESP 16–20; TEMP 98.1–100; O2SAT 93–98
[2024-08-27 07:15] LABS: Basophils # (auto) 0.1 10 ^3/uL (0-0.2); White Blood Cell 7.1 10^3/uL (4.4-10.8)
[2024-08-27 07:16] LABS: Basophils % (auto) 1.4 % (0.0-2.0); Eosinophils # (auto) 0.1 10 ^3/uL (0-0.8); Hematocrit 22.4 % (36.0-46.0); Hemoglobin 7.3 g/dL (12.2-16.2); Lymphocytes # (auto) 1.2 10 ^3/uL (0.4-5.4); Mean Corpuscular Hemoglobin 26.9 pg (28.0-32.0); Mean Corpuscular Hgb Conc. 32.7 g/dL (32.0-36.0); Mean Corpuscular Volume 82.3 fL (80.0-100.0); Monocytes % (auto) 13.9 % (0.0-12.0); Neutrophils # (auto) 4.7 10 ^3/uL (1.6-8.6); Neutrophils % (auto) 65.7 % (37.0-80.0); Nucleated Red Blood Cells % 0.1 %; Platelet Count (auto) 271 10^3/uL (140-450); Red Blood Cells 2.72 10^6/uL (4.0-5.20); Red Cell Distribution Width 19.8 % (11.8-14.3)
[2024-08-27 07:23] LABS: Alanine Aminotransferase 33 U/L (7-40); Alkaline Phosphatase 97 U/L (46-116); Calcium 8.7 mg/dL (8.7-10.4); Chloride 102 mmol/L (98-107)
[2024-08-27 07:24] LABS: Albumin 3.2 g/dL (3.2-4.8); Anion Gap 9 (5-15); BUN/Creatinine Ratio 23.9 (10.0-20.0); Blood Urea Nitrogen 22 mg/dL (9-23); Carbon Dioxide 25 mmol/L (20-31); Glucose 96 mg/dL (74-106); Total Protein 7.2 g/dL (5.7-8.2)
[2024-08-27 07:26] LABS: Aspartate Aminotransferase 73 U/L (13-40); Bilirubin, Total 4.5 mg/dL (0.2-1.0); Magnesium 1.6 mg/dL (1.6-2.6); Potassium 3.4 mmol/L (3.5-5.1); Sodium 136 mmol/L (136-145)
--- NOTE | 2024-08-27 09:25 | DVHPNRES ---
Progress Note Date Seen: Aug 27, 2024 Resident Creating Document: FARRAH MORRISON RESIDENT Medical Necessity Reason Pt with a Central, PICC or Fol: No Subjective Patient reports: No new complaints, Feels better Objective vital signs Vital Sign Date Time Temp Pulse Resp B/P (MAP) Pulse Ox O2 Delivery O2 Flow Rate FiO2 08/27/24 07:04 112/62 08/27/24 05:00 100.0 94 17 93 100.0 08/26/24 20:00 Room Air* 0 21 Total Intake and Output 08/26/24 08/26/24 08/27/24 15:00 23:00 07:00 Intake Total 480 ml 600 ml 300 ml Output Total 800 ml Balance 480 ml -200 ml 300 ml medications Current Medications Medications Dose Ordered Sig/Bárbara Route Start Time Stop Time Status Last Admin Dose Admin Ondansetron HCl 4 mg Q4HP PRN IV 08/24/24 19:45 Acetaminophen 650 mg Q6HP PRN PO 08/24/24 19:45 Ergocalciferol 50,000 unit Q7D PO 08/25/24 15:45 08/25/24 16:52 50,000 UNIT Thiamine HCl 100 mg DAILY PO 08/26/24 10:00 08/26/24 10:41 100 MG Furosemide 40 mg BIDD IV 08/25/24 20:00 08/27/24 07:04 40 MG Potassium Chloride 100 ml @ 50 mls/hr Q2H IV 08/26/24 09:00 08/26/24 12:59 UNV Potassium Bicarbonate 25 meq BID PO 08/27/24 10:00 Examination General: comfortable, HEENT:Pallor, icterus, CVS:Normal, RESPIRATORY:Normal, RA, GI: Normal,swelling of abdomen, flank full, fluid thrill, lower border of liver palpable, non-tender, no guarding, :Normal, spotting (as per patient no active bleeding., avoided examination, patient declined), MSK: pitting edema 1+ Improved NEURO:Normal, no asterixis. laboratory and microbiology Laboratory Tests 08/27/24 05:56 Test 08/27/24 05:56 Range/Units Serum Glucose 96 74-106 mg/dL Labs and/or images reviewed: Labs reviewed by me, Image(s) reviewed by me Problem List/Assessment/Plan Problem List/Assessment/Plan Ms. Ferreira, a 38-year-old female with a history of recurrent miscarriages, anemia, and nosebleeds, was sent to the ER for low hemoglobin levels and reported worsening shortness of breath, swelling, lightheadedness, dizziness, fatigue, palpitations, and abnormal uterine bleeding; her last menstrual period lasted three weeks with heavy clots. She denied presyncope, hematuria, or melena but has a history of heavy menstrual cycles and easy bruising. She received a blood transfusion in June 2024 for excessive nosebleeds. During admission, her hemoglobin level was 4.2 (baseline 8), and she received 3 units of PRBC and one unit of FFP. She was found to be hyponatremic and possibly experiencing acute tubular necrosis due to hypoperfusion. She has no home medications due to lack of insurance and poor healthcare follow-up, and a social history of heavy alcohol use (1 bottle of vodka daily for 5 years) until four months ago. She is hemodynamically stable and feels better post-transfusion post diuretic she is feeling significantly well And corrected hyponatremia. S/p 3 PRBC hnh stable with pletlets, no more active bleeding reported by patient. Assessment: #MARSHALL likely prerenal hypoperfusion, sec to hemorrhage. ATN and HRS highly unlikely. #hyponatremia, hypotonic, hypervolumic Corrected #Hypovitaminosis D on supplements #Recurrent hypokalemia with diuresis on potassium supplements #alcoholic liver disease #Acute blood loss anemia, heavy vaginal bleeding FOBT -ve. recurrent miscarriages, hemophilia or von Willebrand disease in d/d #Secondary hypocoagulable state with elevated, INR 1.6 #Uterine leiomyoma, needs close outpatient OBGYN follow up #mild asymmetric left ventricular hypertrophy Findings: #Na 119>121>122>122>125>128>136 #GFR: 17> 22 >28 >54>82 #Creatinine: 3.37>2.74>2.26>1.31>0.92 (Baseline 0.9, 06/2024) #BUN: 47>44>41>36>22 #FeNa: 0.1% prerenal #I&O: 40Xbid iv lasix 1380- 800: (+ 580) #Fluid status: improved but still overloaded. #Urine : Protein: Cr. 0.4 gram daily. #Kidney Ultrasound: unremarkable. #PTH normal, magnesium, phosphorus wnl. #Urine protein: creatinine=0.4g/day #BUN:Cr. 27.8 (>20 prerenal azotemia) Plan/Recommendation: # Changed to IV Lasix 40 mg daily. strict 1000 ml / 24 hours oral fluid restriction U/O increased and renal function improved. # Daily BMP, adjusted 25 mEq daily oral while the patient is on iv lasix. continue vitamin D supplementation. # Strict I&O and check Daily weight,Avoid Nephrotoxics, Avoid hyper/hypo tension. # At discharge oral 40 mg bid of Lasix and close follow up with OBGYN, hematology and hepatology. # Rest of the management as per primary team. Closer to discharge from Nephrology perspective. Thank you for the opportunity to follow up on your patient. Nephrology we will sign off. In case of any question feel free to reach out to the Nephrology team. Discussed with Nephrology attending Dr. Barajas. Addendum Patient seen and examined, plan discussed with resident. Agree with above, we will follow closely I will sign off this case please reconsult as needed outpatient Acute kidney injury follow-up Plan discussed with: Patient, Other (RN) My Orders My Orders Orders - FARRAH MORRISON Procedure Category Date Status Time Potassium Effervesent PHA 08/27/24 In Process Tab (Klor-Con/Ef) 10:00 CC Plasma Assessment Blood Product Administration S: 1400 FARRAH MORRISON Aug 27, 2024 09:25 EDEL BARAJAS MD Aug 27, 2024 21:26
[2024-08-27 10:23] LABS: Hepatitis B Surface Antigen Negative (Negative); Hepatitis C Antibody Negative (Negative)
[2024-08-27] MEDS: POTASSIUM EFFERVESENT TAB 25 MEQ PO SCH (10:28)
--- NOTE | 2024-08-27 11:39 | DVHPNRES ---
Progress Note Date Seen: Aug 26, 2024 Resident Creating Document: BRENDA HITCHCOCK RESIDENT Medical Necessity Reason Pt with a Central, PICC or Fol: No Subjective Review of Systems Ms. Ferreira is a 38-year-old female with a history of miscarriages last one 5 years ago, anemia, nose bleeding, history of blood transfusion 06/2024, does not follow up with primary care physician, was sent to the ER from some clinic due to low hemoglobin levels. Patient reports worsening shortness of breath for the past week, now unable to walk for few steps without getting dyspneic, denies orthopnea or PND. Reports bilateral lower extremity swelling. Associated symptoms include lightheadedness, dizziness, fatigue cell and palpitations. She reports abnormal uterine bleeding, irregular menstruation since the age of 26. Last menstrual period was 10 days back and it continued for 3 weeks in which she passed heavy clots. She reports she got transfusion June 2024 when she had excessive nosebleed. Also reports easy bruising. During admission, Overnight was febrile 99.1. Hemoglobin was 4.2, tonsils 3 RBCs, repeat hemoglobin 6.9. One packed RBC ordered. One FFP ordered. BNP remarkable for hyponatremia, sodium 119, creatinine 3.3 possible ATN due to hypoperfusion Past medical/surgical history: See above Home medications: None Family history: Sister with heavy menorrhagia, history of cirrhosis and father Social history: Patient drank 1 bottle of vodka every day from 2019 to 2024, quit 4 months back. Last used marijuana 3 years back, denies illicit drug use 08/25 - Patient seen and examined at the bedside. Overnight was febrile 99.1. Hemoglobin was 4.2, tonsils 3 RBCs, repeat hemoglobin 6.9. One packed RBC ordered. One FFP ordered. BNP remarkable for hyponatremia, sodium 119, creatinine 3.3 possible ATN due to hypoperfusion. Nephrology started Lasix 40 b.i.d. IV 08/26-patient seen and examined at the bedside. Reports feeling much better. Hemoglobin 7.4. Ferrous sulfate tablet started. Creatinine trended down to 1.3 Objective vital signs Vital Sign Date Time Temp Pulse Resp B/P (MAP) Pulse Ox O2 Delivery O2 Flow Rate FiO2 08/27/24 09:00 98.2 91 16 103/51 (68) 93 98.2 08/26/24 20:00 Room Air* 0 21 Total Intake and Output 08/26/24 08/26/24 08/27/24 15:00 23:00 07:00 Intake Total 480 ml 600 ml 300 ml Output Total 800 ml Balance 480 ml -200 ml 300 ml medications Current Medications Medications Dose Ordered Sig/Bárbara Route Start Time Stop Time Status Last Admin Dose Admin Ondansetron HCl 4 mg Q4HP PRN IV 08/24/24 19:45 Acetaminophen 650 mg Q6HP PRN PO 08/24/24 19:45 Ergocalciferol 50,000 unit Q7D PO 08/25/24 15:45 08/25/24 16:52 50,000 UNIT Thiamine HCl 100 mg DAILY PO 08/26/24 10:00 08/27/24 10:28 100 MG Furosemide 40 mg BIDD IV 08/25/24 20:00 08/27/24 07:04 40 MG Potassium Chloride 100 ml @ 50 mls/hr Q2H IV 08/26/24 09:00 08/26/24 12:59 UNV Potassium Bicarbonate 25 meq BID PO 08/27/24 10:00 08/27/24 10:28 25 MEQ Examination Obese female patient lying in bed, in no acute distress General: Obese,, afebrile, palor, mucosae are moist, has a scleral icterus Cardiovascular: Regular S1 and S2. No murmurs, gallops or rubs. No JVD elevation. Bilateral 3+ pitting edema Respiratory: Normal B/L air entry on room air. Clear lung sounds on auscultation Abdomen: Soft, nontender, nondistended, normoactive bowel sounds, no rebound tenderness, no organomegaly, no masses Genitourinary: Deferred MSK/skin: Mobilizes 4 limbs. Skin is dry and warm Neurological: No motor, no sensitive deficits, normal speech. Pupils are isocoric and reactive. Psych/Mental Status: A/Ox3 laboratory and microbiology Laboratory Tests 08/27/24 05:56 Test 08/27/24 05:56 Range/Units Serum Glucose 96 74-106 mg/dL Labs and/or images reviewed: Labs reviewed by me, Image(s) reviewed by me Problem List/Assessment/Plan Problem List/Assessment/Plan Acute blood loss anemia secondary to menorrhagia and abnormal uterine bleeding possible secondary to uterine fibroids Rule out hemolytic anemia Iron-deficiency anemia Uterine fibroids Suspected endometriosis Pelvic ultrasound shows Masslike structure is present in the left adnexa which may represent an exophytic fibroid off of the left aspect of the uterus measuring 4.2 cm. Status post 3 packed RBC transfusion, 1 packed RBC and 1 FFP pending. Corrected reticulocyte 1.8, reticulocyte reduction index 0.7 ...... Inadequate response LDH unremarkable, Columba test negative, haptoglobin WNL Indirect bilirubin 2.3, direct bilirubin 3.5 OBGYN -recommended follow up with higher level of care for further workup Transaminitis Chronic liver disease Chronic alcoholic dependence History of cholelithiasis Liver ultrasound showed Coarsened liver echotexture and hepatomegaly suggestive of chronic liver disease. Trace ascites. Nonspecific gallbladder wall thickening which can be seen in the setting of chronic liver disease. Possible gallbladder sludge versus artifact. Hyponatremia, hypotonic likely beer potomania versus chronic liver disease Hypokalemia Serum osmolality 266, urine osmolality 268 Sodium up trending, now 128 Poison Information Specialist recommended IV Lasix 40 mg bid for now, strict 1000 ml / 24 hours oral fluid restriction U/O increased and renal function improved. Acute kidney injury, likely acute tubular necrosis secondary to hypoperfusion versus prerenal azotemia FENA 0.1 which is prerenal Renal ultrasound was remarkable Creatinine downtrended, 0.9 Vitamin-D deficiency Supplemented business services representative consulted for higher level of care DVT prophylaxis: SCDs Plan discussed with patient in which all questions have been answered Goals of care discussed for more than 20 minutes, full code status Case discussed with Dr. Hazel Plan discussed with: Patient My Orders My Orders Orders - BRENDA HITCHCOCK Procedure Category Date Status Time * Rn Plasma Center CONS 08/26/24 Transmitted Consult CC Plasma Assessment Blood Product Administration S: 1400 Date of Service: Aug 26, 2024 Billing Provider: ARON HAZEL DO Common Visit Codes: [id number] INP/OBS CARE(HIGH) BRENDA HITCHCOCK Aug 27, 2024 11:39 ARON HAZEL DO Sep 02, 2024 07:18
[2024-08-27] MEDS: ACETAMINOPHEN 325 MG TAB PO PRN (11:47)
--- NOTE | 2024-08-27 17:29 | DVHPNRES ---
Progress Note Date Seen: Aug 27, 2024 Resident Creating Document: BRENDA HITCHCOCK RESIDENT Medical Necessity Reason Pt with a Central, PICC or Fol: No Subjective Review of Systems 08/27- patient seen and examined at bedside. His lower extremity pitting edema 2+. Hemoglobin Stable 7.3. OBGYN recommended transferring the patient for higher level of care if possible, otherwise outpatient follow up with OBGYN and higher level of care. marketing services coordinator consulted for higher level of care. I spoke to [facility], they can not take the patient given there scheduled list is Fully booked for the next 2 weeks. Objective vital signs Vital Sign Date Time Temp Pulse Resp B/P (MAP) Pulse Ox O2 Delivery O2 Flow Rate FiO2 08/27/24 13:00 98.5 94 18 102/50 (67) 94 98.5 08/27/24 08:20 Room Air* 0 21 Total Intake and Output 08/26/24 08/26/24 08/27/24 15:00 23:00 07:00 Intake Total 480 ml 600 ml 300 ml Output Total 800 ml Balance 480 ml -200 ml 300 ml medications Current Medications Medications Dose Ordered Sig/Bárbara Route Start Time Stop Time Status Last Admin Dose Admin Ondansetron HCl 4 mg Q4HP PRN IV 08/24/24 19:45 Acetaminophen 650 mg Q6HP PRN PO 08/24/24 19:45 08/27/24 11:47 650 MG Ergocalciferol 50,000 unit Q7D PO 08/25/24 15:45 08/25/24 16:52 50,000 UNIT Thiamine HCl 100 mg DAILY PO 08/26/24 10:00 08/27/24 10:28 100 MG Furosemide 40 mg BIDD IV 08/25/24 20:00 08/27/24 07:04 40 MG Potassium Chloride 100 ml @ 50 mls/hr Q2H IV 08/26/24 09:00 08/26/24 12:59 UNV Potassium Bicarbonate 25 meq BID PO 08/27/24 10:00 08/27/24 10:28 25 MEQ Examination Obese female patient lying in bed, in no acute distress General: Obese,, afebrile, palor, mucosae are moist, has a scleral icterus Cardiovascular: Regular S1 and S2. No murmurs, gallops or rubs. No JVD elevation. Bilateral 3+ pitting edema Respiratory: Normal B/L air entry on room air. Clear lung sounds on auscultation Abdomen: Soft, nontender, nondistended, normoactive bowel sounds, no rebound tenderness, no organomegaly, no masses Genitourinary: Deferred MSK/skin: Mobilizes 4 limbs. Skin is dry and warm Neurological: No motor, no sensitive deficits, normal speech. Pupils are isocoric and reactive. Psych/Mental Status: A/Ox3 laboratory and microbiology Laboratory Tests 08/27/24 05:56 Test 08/27/24 05:56 Range/Units Serum Glucose 96 74-106 mg/dL Labs and/or images reviewed: Labs reviewed by me, Image(s) reviewed by me Problem List/Assessment/Plan Problem List/Assessment/Plan 08/27- patient seen and examined at bedside. His lower extremity pitting edema 2+. Hemoglobin Stable 7.3. OBGYN recommended transferring the patient for higher level of care if possible, otherwise outpatient follow up with OBGYN and higher level of care. marketing services coordinator consulted for higher level of care. I spoke to [facility], they can not take the patient given there scheduled list is Fully booked for the next 2 weeks. Acute blood loss anemia secondary to menorrhagia and abnormal uterine bleeding possible secondary to uterine fibroids Rule out hemolytic anemia Iron-deficiency anemia Uterine fibroids Suspected endometriosis Pelvic ultrasound shows Masslike structure is present in the left adnexa which may represent an exophytic fibroid off of the left aspect of the uterus measuring 4.2 cm. Status post 4 packed RBC transfusion, 1 FFP. Hemoglobin stable 7.3 Corrected reticulocyte 1.8, reticulocyte reduction index 0.7 ...... Inadequate response LDH unremarkable, Columba test negative, haptoglobin WNL Indirect bilirubin 2.3, direct bilirubin 3.5 OBGYN -recommended follow up with higher level of care for further workup Transaminitis Chronic liver disease Chronic alcoholic dependence History of cholelithiasis Liver ultrasound showed Coarsened liver echotexture and hepatomegaly suggestive of chronic liver disease. Trace ascites. Nonspecific gallbladder wall thickening which can be seen in the setting of chronic liver disease. Possible gallbladder sludge versus artifact. Hyponatremia, hypotonic likely beer potomania versus chronic liver disease Hypokalemia Serum osmolality 266, urine osmolality 268 Sodium up trending, now 128 Cost Estimating Engineer recommended IV Lasix 40 mg bid for now, strict 1000 ml / 24 hours oral fluid restriction U/O increased and renal function improved. Acute kidney injury, likely acute tubular necrosis secondary to hypoperfusion versus prerenal azotemia FENA 0.1 which is prerenal Renal ultrasound was remarkable Creatinine downtrended, 0.9 Vitamin-D deficiency Supplemented marketing services coordinator consulted for higher level of care DVT prophylaxis: SCDs Plan discussed with patient in which all questions have been answered Goals of care discussed for more than 20 minutes, full code status Case discussed with Dr. Hazel Plan discussed with: Patient My Orders My Orders Orders - BRENDA HITCHCOCK Procedure Category Date Status Time Dietary NOTICE 08/27/24 Transmitted Recommendations 14:48 Dietary Evaluation Review Comments: 1) Consider 2 gm Na diet 2) Continue current plan of care Expected Outcomes/Goals: Pt will meet >75% estimated needs Fu 3-5 days CC Plasma Assessment Blood Product Administration S: 1400 Date of Service: Aug 27, 2024 Billing Provider: ARON HAZEL DO Common Visit Codes: [id number] INP/OBS CARE(HIGH) BRENDA HITCHCOCK Aug 27, 2024 17:29 ARON HAZEL DO Sep 02, 2024 07:18
[2024-08-28] VITALS (7 sets, daily range): BP systolic 106–127; BP diastolic 53–68; PULSE 66–97; RESP 19–21; TEMP 98.1–99; O2SAT 94–98
[2024-08-28 06:51] LABS: Eosinophils # (auto) 0.2 10 ^3/uL (0-0.8); Monocytes # (auto) 0.9 10 ^3/uL (0-1.3); Nucleated Red Blood Cells % 0.1 %; Red Cell Distribution Width 20.6 % (11.8-14.3); White Blood Cell 7.9 10^3/uL (4.4-10.8)
[2024-08-28 06:55] LABS: Basophils # (auto) 0.3 10 ^3/uL (0-0.2); Basophils % (auto) 3.7 % (0.0-2.0); Eosinophils % (auto) 2.9 % (0.0-7.0); Hematocrit 22.5 % (36.0-46.0); Hemoglobin 7.3 g/dL (12.2-16.2); Lymphocytes # (auto) 1.3 10 ^3/uL (0.4-5.4); Lymphocytes % (auto) 16.5 % (10.0-50.0); Mean Corpuscular Hemoglobin 26.8 pg (28.0-32.0); Mean Corpuscular Hgb Conc. 32.3 g/dL (32.0-36.0); Monocytes % (auto) 10.9 % (0.0-12.0); Neutrophils # (auto) 5.2 10 ^3/uL (1.6-8.6); Platelet Count (auto) 292 10^3/uL (140-450); Red Blood Cells 2.71 10^6/uL (4.0-5.20)
[2024-08-28 07:08] LABS: Anion Gap 9 (5-15); Carbon Dioxide 26 mmol/L (20-31); Chloride 104 mmol/L (98-107); Potassium 3.6 mmol/L (3.5-5.1); Sodium 139 mmol/L (136-145)
[2024-08-28 07:09] LABS: Calcium 9.2 mg/dL (8.7-10.4)
[2024-08-28 07:14] LABS: BUN/Creatinine Ratio 20.5 (10.0-20.0); Blood Urea Nitrogen 16 mg/dL (9-23); Glucose 92 mg/dL (74-106)
[2024-08-28 07:15] LABS: Magnesium 1.4 mg/dL (1.6-2.6)
[2024-08-28] MEDS: MAGNESIUM SULFATE 1GM/100ML 100 ML IV SCH (10:12)
[2024-08-28] MEDS: POTASSIUM EFFERVESENT TAB 25 MEQ PO SCH (10:12)
[2024-08-28] MEDS: FUROSEMIDE 20 MG/2 ML VIAL IV SCH (10:12)
[2024-08-28] MEDS ORDERED: CHOL500021 OR (15:21)
[2024-08-28] MEDS ORDERED: FURO1TAB33 PO (15:22)
[2024-08-28] MEDS ORDERED: FER325T PO (15:33)
--- NOTE | 2024-08-28 15:36 | DVHDSRES ---
Discharge Summary Date of Admission Resident Creating Document: BRENDA HITCHCOCK RESIDENT Aug 24, 2024 at 19:33 Date of Discharge: Aug 28, 2024 Labs/Diagnostic Data: Laboratory Results Test 08/28/24 09:01 08/28/24 05:15 08/27/24 05:56 08/26/24 06:45 White Blood Count 7.9 10^3/uL (4.4-10.8) Red Blood Count 2.71 10^6/uL (4.0-5.20) Hemoglobin 7.3 g/dL (12.2-16.2) Hematocrit 22.5 % (36.0-46.0) Mean Corpuscular Volume 83.0 fL (80.0-100.0) Mean Corpuscular Hemoglobin 26.8 pg (28.0-32.0) Mean Corpuscular Hemoglobin Concent 32.3 g/dL (32.0-36.0) Red Cell Distribution Width 20.6 % (11.8-14.3) Platelet Count 292 10^3/uL (140-450) Mean Platelet Volume 8.1 fL (6.9-10.8) Neutrophils (%) (Auto) 66.0 % (37.0-80.0) Lymphocytes (%) (Auto) 16.5 % (10.0-50.0) Monocytes (%) (Auto) 10.9 % (0.0-12.0) Eosinophils (%) (Auto) 2.9 % (0.0-7.0) Basophils (%) (Auto) 3.7 % (0.0-2.0) Neutrophils # (Auto) 5.2 10 ^3/uL (1.6-8.6) Lymphocytes # (Auto) 1.3 10 ^3/uL (0.4-5.4) Monocytes # (Auto) 0.9 10 ^3/uL (0-1.3) Eosinophils # (Auto) 0.2 10 ^3/uL (0-0.8) Basophils # (Auto) 0.3 10 ^3/uL (0-0.2) Nucleated Red Blood Cells 0.1 % Sodium Level 139 mmol/L (136-145) Potassium Level 3.6 mmol/L (3.5-5.1) Chloride Level 104 mmol/L (98-107) Carbon Dioxide Level 26 mmol/L (20-31) Anion Gap 9 (5-15) Blood Urea Nitrogen 16 mg/dL (9-23) Creatinine 0.78 mg/dL (0.550-1.02) Glomerular Filtration Rate Calc 100 mL/min (>90) BUN/Creatinine Ratio 20.5 (10.0-20.0) Serum Glucose 92 mg/dL (74-106) Calcium Level 9.2 mg/dL (8.7-10.4) Magnesium Level 1.4 mg/dL (1.6-2.6) Reticulocyte Count (auto) 3.48 % (0.5-1.5) Total Bilirubin 4.5 mg/dL (0.2-1.0) Aspartate Amino Transferase (AST) 73 U/L (13-40) Alanine Aminotransferase (ALT) 33 U/L (7-40) Alkaline Phosphatase 97 U/L (46-116) Total Protein 7.2 g/dL (5.7-8.2) Albumin 3.2 g/dL (3.2-4.8) Uric Acid 12.0 mg/dL (3.1-7.8) Phosphorus Level 3.2 mg/dL (2.4-5.1) Hepatitis B Surface Antigen Negative (Negative) Hepatitis C Antibody Negative (Negative) Test 08/25/24 08:40 08/25/24 07:25 08/25/24 05:29 08/25/24 03:10 Haptoglobin 121 mg/dL (33-278) Serum Osmolality 266 mOsm/kg (278-298) Direct Bilirubin 3.5 mg/dL (<0.3) Lactate Dehydrogenase 198 U/L (120-246) Vitamin B12 Level 2199 pg/mL (211-911) Vitamin D 25-Hydroxy 24.5 ng/mL (30.0-100) Folic Acid 13.53 ng/mL (>5.38) Thyroid Stimulating Hormone (TSH) 3.78 uIU/mL (0.55-4.78) Parathyroid Hormone (Intact) 68.8 pg/mL (18.4-80.1) HIV (1&2) Antibody Negative (Negative) Urine Color Yellow (Yellow) Urine Clarity Turbid (Clear) Urine pH 5.5 (5.0-9.0) Urine Specific [place] 1.013 (1.001-1.035) Urine Protein 1+ (Negative) Urine Ketones Negative (Negative) Urine Blood Negative /uL (Negative) Urine Nitrite Negative (Negative) Urine Bilirubin Negative (Negative) Urine Urobilinogen Normal mg/dL (Negative) Urine Leukocyte Esterase Negative /uL (Negative) Urine RBC 1 /hpf (0 - 4) Urine Microscopic WBC 5 /HPF (0-5) Urine Squamous Epithelial Cells Few /hpf (<5) Urine Bacteria Few /hpf (None Seen) Urine Osmolality 268 mOsm/kg Urine Creatinine 187.44 mg/dL (30.0-125.0) Urine Sodium < 10 mmol/L (40-220) Urine Glucose Normal mg/dL (Normal) Urine Total Protein 81.4 mg/dL (1-14) Tumor Marker Alpha Fetoprotein 2.5 ng/mL (0.0-6.4) Stool Occult Blood Negative (Negative) Stool Occult Blood Sample #3 (Negative) Test 08/24/24 17:41 Prothrombin Time 16.3 sec (9.3-11.8) Prothrombin Time INR 1.61 (0.9-1.15) Activated Partial Thromboplast Time 30.1 SEC (24.5-34.5) Iron Level 15 ug/dL (50-170) Total Iron Binding Capacity 312 ug/dL (250-425) Percent Iron Saturation 4.8 % (15-50) B-Type Natriuretic Peptide 360.86 pg/mL (0-100) Other Laboratory Tests 08/28/24 05:15 Brief Hx & Hospital Course: Ms. Ferreira is a 38-year-old female with a history of miscarriages last one 5 years ago, anemia, nose bleeding, history of blood transfusion 06/2024, does not follow up with primary care physician, was sent to the ER from some clinic due to low hemoglobin levels. Patient reports worsening shortness of breath for the past week, now unable to walk for few steps without getting dyspneic, denies orthopnea or PND. Reports bilateral lower extremity swelling. Associated symptoms include lightheadedness, dizziness, fatigue cell and palpitations. She reports abnormal uterine bleeding, irregular menstruation since the age of 26. Last menstrual period was 10 days back and it continued for 3 weeks in which she passed heavy clots. She reports she got transfusion June 2024 when she had excessive nosebleed. Also reports easy bruising. Past medical/surgical history: See above Home medications: None Family history: Sister with heavy menorrhagia, history of cirrhosis and father Social history: Patient drank 1 bottle of vodka every day from 2019 to 2024, quit 4 months back. Last used marijuana 3 years back, denies illicit drug use During the hospitalization, Overnight was febrile 99.1. Hemoglobin was 4.2, patient received 3 RBCs, repeat hemoglobin 6.9. One packed RBC ordered. One FFP ordered. BNP remarkable for hyponatremia, sodium 119, creatinine 3.3 possible ATN due to hypoperfusion. Pelvic ultrasound shows Masslike structure is present in the left adnexa which may represent an exophytic fibroid off of the left aspect of the uterus measuring 4.2 cm. LDH unremarkable, Columba test negative, haptoglobin WNL. OBGYN -recommended higher level of care accepted otherwise outpatient follow up with higher level of care and OBGYN as outpatient. Liver ultrasound showed Coarsened liver echotexture and hepatomegaly suggestive of chronic liver disease. Trace ascites. Patient also had MARSHALL, pre renal, community health nurse staff was consulted recommended starting IV Lasix 40 mg b.i.d. and fluid restrictions 1000 ml / 24 hours oral fluid restriction U/O increased and renal function improved. Patient had hyponatremia, Serum osmolality 266, urine osmolality 268 which improved. Renal ultrasound was unremarkable. Creatinine downtrended, 0.9. 3xw 08/28-patient is hemodynamically stable, clinically stable , hemoglobin stable at 7.3 therefore patient has been discharged home with a strong recommendation to follow up with higher level of care and OBGYN as outpatient. Follow up PCP and discharge clinic within 7 days. Patient is being discharged on Lasix 40 mg for the next 10 days, ferrous sulfate tablet 325 mg Saturday/Saturday/Saturday. Discharge diagnosis: Acute blood loss anemia secondary to menorrhagia and abnormal uterine bleeding possible secondary to uterine fibroids Ruled out hemolytic anemia Iron-deficiency anemia Uterine fibroids Suspected endometriosis Transaminitis Chronic liver disease secondary to alcohol use Chronic alcoholic dependence History of cholelithiasis Hyponatremia, hypotonic likely beer potomania versus chronic liver disease Hypokalemia Acute kidney injury, likely prerenal secondary to vasomotor Vitamin-D deficiency Consults/Reason for consult OBGYN consulted for AUB Nephrology consulted for MARSHALL Operations or Procedures ORDERING PHYSICIAN: BRENDA HITCHCOCK RESIDENT PROCEDURE(s): PELUS - PELVIC REASON: AUB ORDER NUMBER(s): [id number], ACCESSION NUMBER(s): [id number] INDICATION: AUB TECHNIQUE: Multiple real-time grayscale transabdominal and transvaginal sonographic images along with color and duplex Doppler of the uterus and ovaries were obtained. COMPARISON: None FINDINGS: The uterus measures 8.8 x 5.0 x 4.8 cm. The endometrial stripe measures 0.2 cm. Uterine fundal fibroid is present measuring 1.8 cm. Masslike structure is seen in the left adnexal region measuring 4.2 cm. Ovaries are not visualized. IMPRESSION: Leiomyomatous uterus. Masslike structure is present in the left adnexa which may represent an exophytic fibroid off of the left aspect of the uterus measuring 4.2 cm. Ovaries are not visualized. ATED BY: ESPINOZA CHOU MD DICTATED DATE/TIME: 08/25/24 1232 SIGNED BY: ESPINOZA CHOU MD SIGNED DATE/TIME: 08/25/24 1232 CC: Condition at Discharge: Stable Final Diagnosis/Problems List Acute blood loss anemia secondary to menorrhagia and abnormal uterine bleeding possible secondary to uterine fibroids Ruled out hemolytic anemia Iron-deficiency anemia Uterine fibroids Suspected endometriosis Transaminitis Chronic liver disease secondary to alcohol use Chronic alcoholic dependence History of cholelithiasis Hyponatremia, hypotonic likely beer potomania versus chronic liver disease Hypokalemia Acute kidney injury, likely prerenal secondary to vasomotor Vitamin-D deficiency Discharge Disposition: Home Discharge Instruct/Medications Diet: See Comment Diet comment: Low-sodium diet, fluid restriction Activity: Light activity Follow Up/Referral: Follow up with the higher level of care within 7 days Follow up with primary care physician within 7 days Follow up with OBGYN as outpatient within 7 day Follow up with the discharge clinic within 7 days Medications: Per EMR Discharge Statement: "Patient was advised to return to the ER or call 911 if any headaches, dizziness, shortness of breath, chest pain, abdominal pain, bleeding, fevers, or worsening of medical condition. Patient was counseled about treatment plan, medications, possible side effects, patientverbalized understanding. All questions were answered to the best of my ability. This discharge took greater then 30 minutes in planning, reviewing documentation, counseling the patient, and discussing with other team members." ASSESSMENT ASSESSMENT Assessment Acute blood loss anemia secondary to menorrhagia and abnormal uterine bleeding possible secondary to uterine fibroids Rule out hemolytic anemia Iron-deficiency anemia Uterine fibroids Suspected endometriosis Date of Service: Aug 28, 2024 Billing Provider: ARON HAZEL DO Common Visit Codes: [id number] DISCH DAY >30min BRENDA HITCHCOCK RESIDENT Aug 28, 2024 15:36 ARON HAZEL DO Sep 02, 2024 07:19
== END 2024-08-28 17:33 | disposition home or self-care (01) | DRG 760 ==
LOC: ER 15:32 → OVERFLOW 19:33 → WEST WING 08-25 22:07
PROVIDERS: ADMIT Internal Medicine; ATTEND Emergency Medicine
PROC: 30233N1 Transfusion of Nonautologous Red Blood Cells into Peripheral Vein, Percutaneous Approach (ICD-10-PCS; principal; 2024-08-24)
DX: D25.9 Leiomyoma of uterus, unspecified (principal); D58.9 Hereditary hemolytic anemia, unspecified; D62 Acute posthemorrhagic anemia; E87.1 Hypo-osmolality and hyponatremia; D68.9 Coagulation defect, unspecified; N17.9 Acute kidney failure, unspecified; N92.0 Excessive and frequent menstruation with regular cycle; K74.60 Unspecified cirrhosis of liver; E55.9 Vitamin D deficiency, unspecified; E87.6 Hypokalemia; N80.9 Endometriosis, unspecified; D50.9 Iron deficiency anemia, unspecified; F10.10 Alcohol abuse, uncomplicated; Y90.9 Presence of alcohol in blood, level not specified; E11.22 Type 2 diabetes mellitus with diabetic chronic kidney disease; I12.9 Hypertensive chronic kidney disease with stage 1 through stage 4 chronic kidney disease, or unspecified chronic kidney disease; N18.9 Chronic kidney disease, unspecified; Z88.0 Allergy status to penicillin; Z88.8 Allergy status to other drugs, medicaments and biological substances; Z79.899 Other long term (current) drug therapy; Z79.1 Long term (current) use of non-steroidal anti-inflammatories (NSAID); Z83.3 Family history of diabetes mellitus; Z82.49 Family history of ischemic heart disease and other diseases of the circulatory system; Z83.2 Family history of diseases of the blood and blood-forming organs and certain disorders involving the immune mechanism
CPT/HCPCS: 36415; 71045; 76705; 76775; 76856; 80048; 80053; 80076; 81001; 82105; 82270; 82306; 82570; 82607; 82746; 83010; 83540; 83550; 83615; 83735; 83880; 83930; 83935; 83970; 84100; 84156; 84295; 84300; 84443; 84550; 85014; 85018; 85025; 85045; 85246; 85610; 85730; 86703; 86803; 86850; 86880; 86900; 86901; 86920; 87340; 99291; G0378; J2003; J2405

== ENCOUNTER 2025-01-07 14:46 | Inpatient (IN) | payer MEDICAID ==
[2025-01-07] VITALS (12 sets, daily range): BP systolic 100–131; BP diastolic 18–65; PULSE 90–98; RESP 17–27; TEMP 97.6–98.7; O2SAT 97–99
[~2025-01-07] VITALS: Ht 177.8 cm; Wt 101.2 kg
[~2025-01-07 14:46] MED LIST changes: +CHOL500021 OR; +FER325T PO; +FURO1TAB33 PO; -KETO10TA PO; -TIZA-142 PO
--- NOTE | 2025-01-07 15:17 | ED.PDOC ---
GI ASSESSMENT HPI Comments This is a 39-year-old female who comes in with chief complaint of decreased appetite as well as shortness for breath. The patient is also having some nausea and generalized weakness. The patient has had abdominal distention and leg swelling since Saturday. She states that her abdominal pain is now an 8/10. She did have some nausea and vomiting. The patient states that she is a heavy drinker but stopped drinking and then recently relapsed. At this time, the patient is only able to roll in a wheelchair. She is accompanied in the emergency department's by her family member. Chief Complaint: Abdominal Pain Time Seen by MD: 14:51 Primary Care Provider: None Reviewed Notes: Nurses Notes, Medications, Allergies (Allergies listed above) Allergies: Coded Allergies: Ketorolac Tromethamine (Verified Allergy, Severe, dizziness, 06/13/24) Penicillins (Verified Allergy, Mild, dizziness, 06/13/24) Home Meds Active Scripts Ferrous Sulfate (FERROUS SULFATE) 325 Mg Tb, 325 MG PO MWF for 30 Days, #30 TAB Prov:BRENDA HITCHCOCK 08/28/24 Furosemide (Lasix) 20 Mg Tb, 40 MG PO DAILY for 10 Days, #20 TAB Prov:BRENDA HITCHCOCK 08/28/24 Cholecalciferol (VITAMIN D) 5,000 Unit Tab, 5000 UNIT OR DAILY for 30 Days, #30 TAB 0 Refills Prov:BRENDA HITCHCOCK 08/28/24 Information Source: Patient, Spouse Mode of Arrival: Wheelchair Timing: Days Duration: Since onset Prehospital treatment: None Quality: Aching, Cramping Vomitus: Bilious Stool: Normal Severity: Moderate Recent: None Recent Hx of: Liver Disease, Other (Abdominal swelling) Pain Location: Diffuse Modifying Factors: Nothing Associated sign and symptoms: Nausea, Vomiting, Abdominal Pain, Other (Decreased appetite) Past Medical History PAST MEDICAL HISTORY: Anemia (The patient has been transfused in the past and the last time being in August), CKF, Liver Surgical History (Other): Left leg surgery RETAIL ATTENDANT History: No Pertinent RETAIL ATTENDANT History Family History Family History: Family hx of DM Social History Smoker: Non-Smoker Alcohol: Sober Drugs: Denies Drug Use Lives In: Home Constitutional: reports: weakness; denies: chills, diaphoresis, fatigue, fever, malaise, sweats, others EENTM: denies: blurred vision, double vision, ear bleeding, ear discharge, ear drainage, ear pain, ear ringing, eye pain, eye redness, hearing loss, mouth pain, mouth swelling, nasal discharge, nose bleeding, nose congestion, nose pain, photophobia, tearing, throat pain, throat swelling, voice changes, others Respiratory: reports: shortness of breath; denies: cough, hemoptysis, orthopnea, SOB at rest, SOB with excertion, stridor, wheezing, others Cardiovascular: denies: chest pain, dizzy spells, diaphoresis, Dyspnea on exertion, edema, irregular heart beat, left arm pain, lightheadedness, palpitations, PND, syncope, others Gastrointestinal: reports: abdomen distended, abdominal pain, nausea, vomiting; denies: blood streaked bowels, constipated, diarrhea, dysphagia, difficulty swallowing, hematemesis, melena, poor appetite, poor fluid intake, rectal bleeding, rectal pain, others Genitourinary: denies: abnormal vagina bleeding, burning, dyspareunia, dysuria, flank pain, frequency, hematuria, incontinence, pain, , vagina discharge, urgency, others Neurological: denies: dizziness, fainting, headache, left sided numbness, left sided weakness, numbness, paresthesia, pre-existing deficit, right sided numbness, right sided weakness, seizure, speech problems, tingling, tremors, weakness, others Musculoskeletal: reports: others (Bilateral leg swelling); denies: back pain, g out, joint pain, joint swelling, muscle pain, muscle stiffness, neck pain Integumetry: denies: bruises, change in color, change in hair/nails, dryness, laceration, lesions, lumps, rash, wounds, others Allergic/Immunocompromised: denies: Difficulty Healing, Frequent Infections, Hives, Itching, others Hematologic/Lymphatic: denies: anemia, blood clots, easy bleeding, easy bruising, swollen glands, others Endocrine: denies: excessive hunger, excessive sweating, excessive thirst, excessive urination, flushing, intolerance to cold, intolerance to heat, unexplained weight gain, unexplained weight loss, others Psychiatric: denies: anxiety, bipolar disorder, depression, hopeless, panic disorder, schizophrenia, sleepless, suicidal, others Physical Exam General Appearance: Moderate Distress HEENT: Pale Conjuntivae (L), Pale Conjuntivae (R), Pharynx Normal, TMs Normal Neck: Full Range of Motion, Non-Tender, Normal, Normal Inspection Respiratory: Chest Non-Tender, Lungs Clear, No Accessory Muscle Use, No Respiratory Distress, Normal Breath Sounds Cardiovascular: No Edema, No JVD, No Murmur, No Gallop, Tachycardia Breast Exam: Deferred Gastrointestinal: Distended, No Organomegaly, Non Tender, No Pulsatile Mass, Normal Bowel Sounds Genitalia: Deferred Pelvic: Deferred Rectal: Deferred Extremities: No calf tenderness, Normal capillary refill, Pedal edema Musculoskeletal : Apperance: Normal Neurologic: Alert, incinerator plant supervisor II-XII nml as Tested, Motor Weakness, Normal Affect, Normal Mood, No Sensory Deficits Cerebellar Function: Normal Reflexes: Normal Skin: Dry, Pallor, Warm Lymphatic: No Adenopathy EKG EKG : Pulse Rate (adult): 99 [place]: Normal Cardiac Rhythm: NSR Block: None ST: Nonsp Was a procedure done? Was a procedure done?: No GI differential Dx Differential Diagnosis: Gastritis/PUD, Gastroenteritis, Inflammatory BD, Pancreatitis, UTI, Electrolyte Imbalance, Food Poisoning X-Ray, Labs, Meds, VS Vital Signs Date Time Temp Pulse Resp B/P (MAP) Pulse Ox O2 Delivery O2 Flow Rate FiO2 01/07/25 15:17 99 01/07/25 15:03 99 01/07/25 14:47 98.2 100 20 103/44 95 98.2 Lab Test 01/07/25 15:55 Range/Units White Blood Count 6.8 4.4-10.8 10^3/uL Red Blood Count 1.75 L 4.0-5.20 10^6/uL Hemoglobin 4.5 *L 12.2-16.2 g/dL Hematocrit 14.9 L 36.0-46.0 % Mean Corpuscular Volume 85.0 80.0-100.0 fL Mean Corpuscular Hemoglobin 25.6 L 28.0-32.0 pg Mean Corpuscular Hemoglobin Concent 30.1 L 32.0-36.0 g/dL Red Cell Distribution Width 25.2 H 11.8-14.3 % Platelet Count 128 L 140-450 10^3/uL Mean Platelet Volume 8.4 6.9-10.8 fL Neutrophils (%) (Auto) 69.1 37.0-80.0 % Lymphocytes (%) (Auto) 20.3 10.0-50.0 % Monocytes (%) (Auto) 9.3 0.0-12.0 % Eosinophils (%) (Auto) 0.6 0.0-7.0 % Basophils (%) (Auto) 0.7 0.0-2.0 % Neutrophils # (Auto) 4.7 1.6-8.6 10 ^3/uL Lymphocytes # (Auto) 1.4 0.4-5.4 10 ^3/uL Monocytes # (Auto) 0.6 0-1.3 10 ^3/uL Eosinophils # (Auto) 0 0-0.8 10 ^3/uL Basophils # (Auto) 0.1 0-0.2 10 ^3/uL Nucleated Red Blood Cells 0.0 % Platelet Estimate Pending Prothrombin Time 15.1 H 9.3-11.8 sec Prothrombin Time INR 1.48 H 0.9-1.15 Activated Partial Thromboplast Time 34.5 24.5-34.5 SEC Sodium Level 121 L 136-145 mmol/L Potassium Level 4.9 3.5-5.1 mmol/L Chloride Level 91 L 98-107 mmol/L Carbon Dioxide Level 14 L 20-31 mmol/L Anion Gap 16 H 5-15 Blood Urea Nitrogen 34 H 9-23 mg/dL Creatinine 5.48 H 0.550-1.02 mg/dL Glomerular Filtration Rate Calc 10 >90 mL/min BUN/Creatinine Ratio 6.2 L 10.0-20.0 Serum Glucose 81 74-106 mg/dL Calcium Level 8.6 L 8.7-10.4 mg/dL Total Bilirubin 4.1 H 0.2-1.0 mg/dL Aspartate Amino Transferase (AST) 38 13-40 U/L Alanine Aminotransferase (ALT) 17 7-40 U/L Alkaline Phosphatase 88 46-116 U/L Total Protein 8.2 5.7-8.2 g/dL Albumin 3.6 3.2-4.8 g/dL Lipase 109 H 12-53 U/L Images Reviewed?: Images reviewed and evaluated by me Time of 1ST Reevaluation: 15:13 Reevaluation 1ST: Unchanged Patient Education/Counseling: Diagnosis, Treatment, Prognosis Family Education/Counseling: No Family Present SEPSIS Sepsis Screen Date sepsis recognized/suspect: Jan 07, 2025 Time Sepsis recognized/suspect: 1448 Recent Procedure: No On Antibiotic Therapy: No Respiratory Rate >20: No Heart Rate >90: Yes Temp<36 C (96.8 F) or >38.3 C: No SBP <90 or MAP <65 mmHG: No New Acute Mental Status Change: No Is the patient on CPAP, BIPAP,: No Physician Orders Electrocardigram (01/07/25 15:02) Complete Blood Count (01/07/25 15:10) Urinalysis (01/07/25 15:10) Heplock Iv (01/07/25 15:10) Paracentesis (01/07/25 15:10) Type And Screen (01/07/25 15:10) Abdomen Limited (01/07/25 15:19) Paracentesis (01/08/25 07:00) Rbc Morphology (01/07/25 15:55) Obtain Consent For: (01/07/25 16:30) Packedcell-Noactive Bleeding (01/07/25 16:30) Administer Blood Products UD (01/07/25 16:30) Vital Signs Date Time Temp Pulse Resp B/P (MAP) Pulse Ox O2 Delivery O2 Flow Rate FiO2 01/07/25 15:17 99 01/07/25 15:03 99 01/07/25 14:47 98.2 100 20 103/44 95 98.2 Laboratory Tests Test 01/07/25 15:55 White Blood Count 6.8 10^3/uL (4.4-10.8) Departure 1 Departure Time of Disposition: 16:57 Impression: Primary Impression: Generalized weakness Additional Impressions: Severe anemia Ascites Qualified Codes: K70.31 - 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
--- NOTE | 2025-01-07 15:52 | DVH ---
EXAM: US ABDOMEN LIMITED Clinical History: ABD DISTENTION Comparison: US PELVIC on DOS: 08/25/24, US LIVER on DOS: 08/25/24, US KIDNEY on DOS: 08/25/24 Technique: Grayscale ultrasound of the abdomen performed with color Doppler and spectral/pulsed wave form as indicated. Findings/Impression: [place] volume ascites in all 4 quadrants.
[2025-01-07 16:16] LABS: Hematocrit 14.9 % (36.0-46.0); Nucleated Red Blood Cells % 0.0 %
[2025-01-07 16:17] LABS: Mean Corpuscular Hemoglobin 25.6 pg (28.0-32.0); Mean Corpuscular Volume 85.0 fL (80.0-100.0)
[2025-01-07 16:26] LABS: Hemoglobin 4.5 g/dL (12.2-16.2)
[2025-01-07 16:31] LABS: Alanine Aminotransferase 17 U/L (7-40); Albumin 3.6 g/dL (3.2-4.8); Alkaline Phosphatase 88 U/L (46-116); Anion Gap 16 (5-15); BUN/Creatinine Ratio 6.2 (10.0-20.0); Bilirubin, Total 4.1 mg/dL (0.2-1.0); Blood Urea Nitrogen 34 mg/dL (9-23); Calcium 8.6 mg/dL (8.7-10.4); Carbon Dioxide 14 mmol/L (20-31); Chloride 91 mmol/L (98-107); Glucose 81 mg/dL (74-106); Lipase 109 U/L (12-53); Potassium 4.9 mmol/L (3.5-5.1); Sodium 121 mmol/L (136-145); Total Protein 8.2 g/dL (5.7-8.2)
[2025-01-07 16:35] LABS: INR 1.48 (0.9-1.15); Partial Thromboplastin Time 34.5 SEC (24.5-34.5); Prothrombin Time 15.1 sec (9.3-11.8)
[2025-01-07 16:50] LABS: Anisocytosis Moderate
[2025-01-07] MEDS ORDERED: NITROGLYCERIN 0.4 MG SL TAB SL PRN (17:15)
[2025-01-07] MEDS ORDERED: DOCUSATE SOD 100 MG CAP PO PRN (17:15)
[2025-01-07] MEDS ORDERED: FUROSEMIDE 40 MG/4 ML VIAL IV ONE (17:15)
--- NOTE | 2025-01-07 17:56 | DVHHP2 ---
History of Present Illness Reason for Visit: abd pain History of Present Illness 38-year-old female with a past medical history significant for acute anemia requiring transfusions (June and August 2024), uterine fibroids, chronic liver disease secondary to alcohol use, chronic alcohol dependence, gallstones, history of miscarriage, and chronic anemia presents with progressive abdominal distention, severe abdominal pain, and nausea for the past week. She notes worsening bloating since last Saturday, with progressive abdominal swelling, inability to sleep, decreased oral intake, and extreme nausea. She denies chest pain or fever. She vomited mucus without blood but has noted black stools over the past week. She has not menstruated since October 2024. In the ED, she was found to have hemoglobin 4.5 (down from prior baseline 14.9 ), sodium 121 (previously 139 on 08/28/24), creatinine 5.48 (previously 0.78 on 08/28/24), BUN 91 , CO 14, anion gap 16, ammonia 109, total bilirubin 4.1, plt 128 , and glucose 34 on arrival (later corrected to 91). Physical exam notable for abdominal distension, tenderness, and new bilateral lower extremity edema. She received IV morphine for pain. She reports chronic alcohol use, last drink last , and a history of gallstones. She has no prior diagnosis of cirrhosis but was told during her June 2024 admission that she had liver and kidney damage. She denies hematemesis but reports melena. will admit pt to [facility] for acute blood l oss anemia likely gi bleed, will start on protonix, octretride drip, will consult gi and renal consult since in acute renal failure. Past Medical History See HPI above Past Surgical History See HPI above Family History Reviewed, non-contributory to the management of this case. Past Social History last drink was december, no drug use and no smoking Review of Systems Constitutional: No: Fever, Chills, Sweats, Weakness, Malaise, Other Eyes: No: Pain, Vision change, Conjunctivae inflammation, Eyelid inflammation, Other, Redness ENT: No: Ear pain, Ear discharge, Nose pain, Nose discharge, Nose congestion, Mouth pain, Mouth swelling, Throat pain, Throat swelling, Other Respiratory: No: Cough, Dry, Shortness of breath, SOB with excertion, Wheezing, Hemoptysis, Pleuritic Pain, Sputum, Wheezing, Other Cardiovascular: Edema; No: Chest Pain, Palpitations, Orthopnea, Paroxysmal Noc. Dyspnea, Lt Headedness, Other Gastrointestinal: Nausea, Abdominal Pain, Melena; No: Vomiting, Diarrhea, Constipation, Hematochezia, Other Genitourinary: No Dysuria, No Frequency, No Incontinence, No Hematuria, No Rete ntion, No Other Musculoskeletal: No: other, neck pain, shoulder pain, arm pain, back pain, hand pain, leg pain, foot pain Skin: No: Rash, Lesions, Jaundice, Bruising, Other Neurological: No: Weakness, Numbness, Incoordination, Change in speech, Confusion, Seizures, Other Allergies: Coded Allergies: Ketorolac Tromethamine (Verified Allergy, Severe, dizziness, 06/13/24) Penicillins (Verified Allergy, Mild, dizziness, 06/13/24) Exam Vital Signs Vital Signs Date Time Temp Pulse Resp B/P (MAP) Pulse Ox O2 Delivery O2 Flow Rate FiO2 01/07/25 17:05 98.2 95 22 125/28 (60) 100 98.2 General Appearance: Alert, Oriented X3, Cooperative, mild distress HEENT: Atraumatic, PERRLA, EOMI, Mucous membr. moist/pink Respiratory: Other (diminished throughout ) Cardiovascular: Regular rate, Normal S1, Normal S2, No murmurs Abdominal: Other (abd round slight firm guarding and rebound tenderness) Extremities: No clubbing, No cyanosis, Normal pulses, No tenderness/swelling, Other (ble edema ) Skin: No rashes, No breakdown, No significant lesion Neuro: Other (neuro non focal ) Psych/Mental Status: Mental status NL, Mood NL Labs/Xrays Ultrasound shows ascites in all quadrants I reviewed labs, imaging CT scan abdomen pelvis, EKG and all diagnostic studies on this patient from ED records and the medical chart Labs Test 01/07/25 17:08 01/07/25 15:55 Range/Units White Blood Count 6.8 4.4-10.8 10^3/uL Red Blood Count 1.75 L 4.0-5.20 10^6/uL Hemoglobin 4.5 *L 12.2-16.2 g/dL Hematocrit 14.9 L 36.0-46.0 % Mean Corpuscular Volume 85.0 80.0-100.0 fL Mean Corpuscular Hemoglobin 25.6 L 28.0-32.0 pg Mean Corpuscular Hemoglobin Concent 30.1 L 32.0-36.0 g/dL Red Cell Distribution Width 25.2 H 11.8-14.3 % Platelet Count 128 L 140-450 10^3/uL Mean Platelet Volume 8.4 6.9-10.8 fL Neutrophils (%) (Auto) 69.1 37.0-80.0 % Lymphocytes (%) (Auto) 20.3 10.0-50.0 % Monocytes (%) (Auto) 9.3 0.0-12.0 % Eosinophils (%) (Auto) 0.6 0.0-7.0 % Basophils (%) (Auto) 0.7 0.0-2.0 % Neutrophils # (Auto) 4.7 1.6-8.6 10 ^3/uL Lymphocytes # (Auto) 1.4 0.4-5.4 10 ^3/uL Monocytes # (Auto) 0.6 0-1.3 10 ^3/uL Eosinophils # (Auto) 0 0-0.8 10 ^3/uL Basophils # (Auto) 0.1 0-0.2 10 ^3/uL Nucleated Red Blood Cells 0.0 % Platelet Estimate Decreased Hypochromasia (manual) Moderate Poikilocytosis (manual) Slight Anisocytosis (manual) Moderate [place] Cells Few Prothrombin Time 15.1 H 9.3-11.8 sec Prothrombin Time INR 1.48 H 0.9-1.15 Activated Partial Thromboplast Time 34.5 24.5-34.5 SEC Sodium Level 121 L 136-145 mmol/L Potassium Level 4.9 3.5-5.1 mmol/L Chloride Level 91 L 98-107 mmol/L Carbon Dioxide Level 14 L 20-31 mmol/L Anion Gap 16 H 5-15 Blood Urea Nitrogen 34 H 9-23 mg/dL Creatinine 5.48 H 0.550-1.02 mg/dL Glomerular Filtration Rate Calc 10 >90 mL/min BUN/Creatinine Ratio 6.2 L 10.0-20.0 Serum Glucose 81 74-106 mg/dL Calcium Level 8.6 L 8.7-10.4 mg/dL Total Bilirubin 4.1 H 0.2-1.0 mg/dL Aspartate Amino Transferase (AST) 38 13-40 U/L Alanine Aminotransferase (ALT) 17 7-40 U/L Alkaline Phosphatase 88 46-116 U/L Total Protein 8.2 5.7-8.2 g/dL Albumin 3.6 3.2-4.8 g/dL Lipase 109 H 12-53 U/L SEPSIS Sepsis Screen Date sepsis recognized/suspect: Jan 07, 2025 Time Sepsis recognized/suspect: 1447 Recent Procedure: No On Antibiotic Therapy: No Respiratory Rate >20: No Heart Rate >90: Yes Temp<36 C (96.8 F) or >38.3 C: No SBP <90 or MAP <65 mmHG: No New Acute Mental Status Change: No Is the patient on CPAP, BIPAP,: No Physician Orders Electrocardigram (01/07/25 15:02) Urinalysis (01/07/25 15:10) Heplock Iv (01/07/25 15:10) Paracentesis (01/07/25 15:10) Type And Screen (01/07/25 15:10) Abdomen Limited (01/07/25 15:19) Paracentesis (01/08/25 07:00) Obtain Consent For: (01/07/25 16:30) Administer Blood Products UD (01/07/25 16:30) Ammonia (01/07/25 16:57) Admit (01/07/25 17:03) Allergies (01/07/25 17:03) Code Status (01/07/25 17:03) Ondansetron Hcl (Zofran) (01/07/25 17:15) Docusate Sodium Capsule (Colace Capsule) (01/07/25 17:15) Complete Blood Count (01/08/25 04:00) Comprehensive Metabolic Panel (01/08/25 04:00) Npo (Nothing By Mouth) Diet (01/07/25 Dinner) Condition: Stable (01/07/25 17:03) BRP (01/07/25 17:03) Morphine Sulfate Injection (01/07/25 17:15) Sequential Compression Device (01/07/25 ) Nitroglycerin Sublingual (Ntrostat Subli (01/07/25 17:15) Stat Ekg For Chest Pain (01/07/25 17:03) Notify Md Of Changes From Base (01/07/25 17:03) Oleo Hasher And Renderer For 24 Hours (01/07/25 17:03) Emergency Dysrhythmia Protocol (01/07/25 17:03) Rhythm Strips Once Every Shift (01/07/25 17:03) Oxygen By Nasal Cannula (01/07/25 17:03) * Gi D[facility] Publication Manager (01/07/25 17:03) Pantoprazole Drip Protonix (01/07/25 17:15) Pantoprazole Drip Protonix (01/07/25 17:15) Furosemide Injection (Lasix Injection) (01/07/25 17:15) Furosemide Injection (Lasix Injection) (01/07/25 18:00) Spironolactone (Aldactone) (01/07/25 17:15) Spironolactone (Aldactone) (01/08/25 10:00) Osmolality Urine (01/07/25 17:03) Urine Sodium (01/07/25 17:03) Osmolality, Serum (01/07/25 17:03) Stool Occult Blood (01/07/25 17:03) Octreotide Drip Sandostatin (01/07/25 17:15) Octreotide Drip Sandostatin (01/07/25 17:15) Kidney (01/07/25 17:03) *[facility] (01/07/25 17:03) Levofloxacin Levaquin (01/08/25 10:00) Levofloxacin Levaquin (01/07/25 17:15) Vital Signs Date Time Temp Pulse Resp B/P (MAP) Pulse Ox O2 Delivery O2 Flow Rate FiO2 01/07/25 17:05 98.2 95 22 125/28 (60) 100 98.2 01/07/25 15:17 99 01/07/25 15:03 99 01/07/25 14:47 98.2 100 20 103/44 95 98.2 Laboratory Tests Test 01/07/25 15:55 White Blood Count 6.8 10^3/uL (4.4-10.8) Assessment/Plan Assessment/Plan 39 yr old female with Acute decompensated liver failure with severe anemia, acute kidney injury, and suspected upper GI bleed, requiring urgent stabilization, blood transfusion, and specialty consultations. Acute new onset Decompensated Liver Failure with Ascites likely secondary to alcoholic liver disease Admit to telemetry GI consult fu recs ordered diagnostic/therapeutic paracentesis and bleeding source evaluation Start IV protonix drip for possible variceal/upper GI bleed Start octreotide drip per GI recommendation for variceal bleed prophylaxis Start levaquin for spontaneous bacterial peritonitis (SBP) prophylaxis RUQ ultrasound found ascites but no portal htn seen, thora ordered from er Trend LFTs, INR, bilirubin daily ordered Ammonia level if elevated order lactulose 30 mL PO/NG q6h titrated to 23 soft stools/day Avoid hepatotoxic medications npo for now Acute Kidney Injury likely hepatorenal syndrome vs. pre-renal azotemia Nephrology consult for evaluation of severe MARSHALL (creatinine 5.48, baseline 0.78) Strict I/O, daily weights Avoid nephrotoxins ordered albumin infusion + vasoconstrictor therapy if hepatorenal syndrome suspected Monitor electrolytes closely Renal ultrasound to rule out obstruction fu results ordered urine sodium and crea to check fena acute Severe Hyponatremia likely hypervolemic hyponatremia in cirrhosis Monitor sodium q46h, correct slowly (<810 mEq/24h) to avoid osmotic demyelination Fluid restriction 11.5 L/day Nephrology to guide correction strategy Acute Upper GI Bleed with Melena likely variceal vs. portal hypertensive gastropathy NPO GI consult for evaluation Continue protonix drip and octreotide drip Transfuse PRBCs to maintain Hgb >7 g/dL (higher if actively bleeding or unstable) Monitor for signs of hemodynamic instability Acute blood loss Symptomatic Anemia secondary to GI bleeding Monitor H/H q6h PRBC transfusion as above Iron studies, ferritin, reticulocyte count after acute bleed stabilizes occult blood in stool Chronic Alcohol Dependence [facility] protocol for withdrawal prevention Thiamine 100 mg daily, folic acid, multivitamin po daily Counseling once stable chronic problems History of Uterine Fibroids no bleeding since 11/01 Chronic liver disease secondary to alcohol Chronic alcohol dependence Uterine fibroids Gallstones Chronic anemia History of miscarriage FEN / PPx Fluids: Maintain euvolemia; cautious use of IV fluids given ascites and hyponatremia Electrolytes: Monitor and replace as needed, sodium correction <810 mEq/day Nutrition: NPO pending GI evaluation DVT Prophylaxis: Hold pharmacologic prophylaxis until GI bleed ruled out or stabilized; use SCDs GI Prophylaxis: Protonix drip for upper GI bleed prophylaxis Disposition Admit to telemetry for close monitoring, urgent GI and nephrology consultation, stabilization of acute decompensated liver disease, management of MARSHALL, and control of GI bleeding. Discharge planning dependent on clinical improvement and specialty recommendations. Plan discussed with: Patient My Orders Orders - CHANNING DENIS DNP Procedure Category Date Status Time Admit ADMIT 01/07/25 Transmitted 17:[address] [facility] 01/07/25 Transmitted 17:03 Code Status CODE 01/07/25 Transmitted 17:03 Ondansetron Hcl [facility] 01/07/25 Transmitted (Zofran) 17:15 Docusate Sodium [facility] 01/07/25 Transmitted Capsule (Colace 17:15 Complete Blood Count LAB 01/08/25 Verified 04:00 Comprehensive LAB 01/08/25 Verified Metabolic Panel 04:00 Npo (Nothing By DIET 01/07/25 Transmitted Mouth) Diet Dinner Condition: Stable [facility] 01/07/25 Transmitted 17:[address] [facility] 01/07/25 Transmitted 17:03 Morphine Sulfate [facility] 01/07/25 Transmitted Injection 17:[address] [facility] 01/07/25 Transmitted Compression Device Nitroglycerin [facility] 01/07/25 Transmitted Sublingual (Ntrostat 17:15 Stat Ekg For Chest [facility] 01/07/25 Transmitted Pain 17:03 Notify Md Of Changes [facility] 01/07/25 Transmitted From Base 17:03 Oleo Hasher And Renderer For [facility] 01/07/25 Transmitted 24 Hours 17:[address] [facility] 01/07/25 Transmitted Protocol 17:03 Rhythm Strips Once [facility] 01/07/25 Transmitted Every Shift 17:03 Oxygen By Nasal 01/07/25 Transmitted Cannula 17:03 * [facility] Publication Manager CONS 01/07/25 Transmitted 17:03 Pantoprazole Drip [facility] 01/07/25 Transmitted Protonix 17:15 Pantoprazole Drip [facility] 01/07/25 Transmitted Protonix 17:15 Furosemide Injection [facility] 01/07/25 Transmitted (Lasix Injection) 17:15 Furosemide Injection [facility] 01/07/25 Transmitted (Lasix Injection) 18:00 Spironolactone [facility] 01/07/25 Transmitted (Aldactone) 17:15 Spironolactone [facility] 01/08/25 Transmitted (Aldactone) 10:00 Osmolality Urine [facility] 01/07/25 Transmitted 17:03 Urine Sodium [facility] 01/07/25 Transmitted 17:03 Osmolality, Serum [facility] 01/07/25 Transmitted 17:03 Stool Occult Blood [facility] 01/07/25 Transmitted 17:03 Octreotide Drip [facility] 01/07/25 Transmitted Sandostatin 17:15 Octreotide Drip [facility] 01/07/25 Transmitted Sandostatin 17:15 Kidney US 01/07/25 Transmitted 17:03 *[facility] CONS 01/07/25 Transmitted -[place] 17:03 Levofloxacin Levaquin [facility] 01/08/25 Transmitted 10:00 Levofloxacin Levaquin [facility] 01/07/25 Transmitted 17:15 Date of Service: Jan 07, 2025 Billing Provider: CHANNING DENIS DNP Common Visit Codes: [id number] INP/OBS CARE (HIGH), [id number] CARE 30- 74 MIN (Total critical care time: Approximately 45 minutes This critical care time included obtaining a history; examining the patient; pulse oximetry; ordering and review of studies; arranging urgent treatment with development of a management plan; evaluation of patient's response to treatment; frequent reassessment; and, discussions with other providers.) CHANNING DENIS DNP Jan 07, 2025 17:56
--- NOTE | 2025-01-07 17:57 | DVH ---
INDICATION: acute renal failure TECHNIQUE: Multiple real-time sonographic images of the kidneys and bladder were obtained. COMPARISON: US ABDOMEN LIMITED on DOS: 01/07/25, US PELVIC on DOS: 08/25/24, US LIVER on DOS: 08/25/24, US KIDNEY on DOS: 08/25/24 FINDINGS: Evaluation is difficult due to abdominal swelling. The right kidney measures 10.9 cm in length, which is normal in size. There is normal echogenicity of the right kidney. No hydronephrosis. The left kidney measures 12.0 cm in length, which is normal in size. There is normal echogenicity of the left kidney. No hydronephrosis. No large intraluminal masses are seen in the bladder. Prior to voiding the bladder volume measures vo lume 133 cc. The bladder wall appears mildly thickened at 6 mm. There is mild ascites. IMPRESSION: Normal sonographic appearance of the kidneys. The bladder appears thick-walled. Correlate clinically for possible cystitis. Abdominal ascites.
[2025-01-07] MEDS: MORPHINE SULFATE 4 MG/ML SYR/VIAL IV ONE (18:06)
[2025-01-07] MEDS: SPIRONOLACTONE 25 MG TAB PO ONE (18:06)
[2025-01-07] MEDS: ONDANSETRON HCL 4 MG/2 ML VIAL IV ONE (18:07)
[2025-01-07] MEDS: OCTREOTIDE ACETATE 100 MCG in SODIUM CHL 0.9% 50 ML IV ONE (18:27)
[2025-01-07] MEDS: OCTREOTIDE ACETATE 500 MCG in SODIUM CHL 0.9% 99 ML IV SCH (18:46)
[2025-01-07] MEDS: ONDANSETRON HCL 4 MG/2 ML VIAL IV PRN (19:24)
[2025-01-07] MEDS: PANTOPRAZOLE 80 MG in SODIUM CHL 0.9% 100 ML IV ONE (19:57)
[2025-01-07 20:16] LABS: Anion Gap 17 (5-15); Calcium 9.4 mg/dL (8.7-10.4)
[2025-01-07 20:21] LABS: BUN/Creatinine Ratio 6.3 (10.0-20.0); Blood Urea Nitrogen 35 mg/dL (9-23); Carbon Dioxide 14 mmol/L (20-31); Chloride 90 mmol/L (98-107); Glucose 82 mg/dL (74-106); Potassium 5.2 mmol/L (3.5-5.1); Sodium 121 mmol/L (136-145)
[2025-01-07] MEDS: PANTOPRAZOLE 40mg/50ML NS AE 50 ML IV ONE (20:45)
[2025-01-08] VITALS (15 sets, daily range): BP systolic 101–123; BP diastolic 44–64; PULSE 82–111; RESP 16–20; TEMP 98–99.4; O2SAT 92–100
[2025-01-08 02:49] LABS: Hematocrit 17.9 % (36.0-46.0)
[2025-01-08 02:54] LABS: Hemoglobin 5.9 g/dL (12.2-16.2)
[2025-01-08 03:09] LABS: Anion Gap 15 (5-15)
[2025-01-08 03:12] LABS: Calcium 8.6 mg/dL (8.7-10.4); Carbon Dioxide 14 mmol/L (20-31); Chloride 91 mmol/L (98-107); Potassium 5.3 mmol/L (3.5-5.1); Sodium 120 mmol/L (136-145)
[2025-01-08 03:14] LABS: BUN/Creatinine Ratio 5.7 (10.0-20.0)
[2025-01-08 03:17] LABS: Blood Urea Nitrogen 32 mg/dL (9-23); Glucose 79 mg/dL (74-106)
[2025-01-08] MEDS: OCTREOTIDE ACETATE 500 MCG/ML VL ONE (03:17)
[2025-01-08] MEDS: FUROSEMIDE 40 MG/4 ML VIAL IV SCH (05:59)
[2025-01-08 09:08] LABS: Nucleated Red Blood Cells % 0.1 %
[2025-01-08 09:10] LABS: Hematocrit 18.3 % (36.0-46.0); Mean Corpuscular Hemoglobin 28.3 pg (28.0-32.0); Mean Corpuscular Volume 85.6 fL (80.0-100.0)
[2025-01-08 09:12] LABS: Hemoglobin 6.0 g/dL (12.2-16.2)
[2025-01-08 09:30] LABS: Alanine Aminotransferase 17 U/L (7-40); Albumin 3.5 g/dL (3.2-4.8); Alkaline Phosphatase 83 U/L (46-116); Anion Gap 16 (5-15); BUN/Creatinine Ratio 6.0 (10.0-20.0); Bilirubin, Total 8.1 mg/dL (0.2-1.0); Blood Urea Nitrogen 34 mg/dL (9-23); Calcium 9.3 mg/dL (8.7-10.4); Carbon Dioxide 15 mmol/L (20-31); Chloride 90 mmol/L (98-107); Glucose 83 mg/dL (74-106); Potassium 5.4 mmol/L (3.5-5.1); Sodium 121 mmol/L (136-145); Total Protein 8.0 g/dL (5.7-8.2)
[2025-01-08] MEDS ORDERED: SPIRONOLACTONE 25 MG TAB PO SCH (10:00)
[2025-01-08 10:21] LABS: Beta HCG, Quantitative 0.7 mIU/mL (1.5-4.2)
[2025-01-08 10:22] LABS: Thyroid Stimulating Hormone 1.88 uIU/mL (0.55-4.78)
[2025-01-08 10:43] LABS: Iron 265.0 ug/dL (50-170)
[2025-01-08 10:44] LABS: Total Iron Binding Capacity 291.0 ug/dL (250-425)
[2025-01-08] MEDS: PANTOPRAZOLE 40 MG/10 ML VIAL INJ IV ONE (11:44)
[2025-01-08] MEDS: DEXTROSE (50%) 50ML SYRG IV ONE (11:44)
[2025-01-08] MEDS: THIAMINE 100mg/ml INJ (200mg/2ml VIAL) IV ONE (11:45)
[2025-01-08] MEDS: InsuLIN REG 1unit/0.01ml Soln (100units/ml) IV ONE (11:45)
[2025-01-08] MEDS: FOLIC ACID 1 MG in D5W 5% 50 ML INJ ONE (11:45)
--- NOTE | 2025-01-08 12:49 | DVH ---
Indication: hx of fibroids, acute blood loss anemia, CLD varices Technique: CT axial images of the abdomen and pelvis are obtained without contrast. Coronal and sagit nicole reformats were obtained. Radiation Dose Information: CTDI volume is 27.8 mGy. Dose-length product is 2.91 mGy*cm Comparison: US ABDOMEN LIMITED on DOS: 01/07/25, US PELVIC on DOS: 08/25/24, CT CT AB PEL WO CON-NO ORA L OR IV on DOS: 06/14/24 FINDINGS: There is limited interpretation of the abdomen and pelvis without administration of intravenous contr ast. Moderate left pleural effusion. Left lower lobe airspace consolidation /atelectasis. Adrenal glands u nremarkable. Spleen measures 11 cm AP. Pancreas unremarkable in shape. Cholelithiasis. Cirrhotic morphology liver. Innumerable hypodense lesions throughout the hepatic parenchyma most con cerning for malignancy / metastatic disease. The kidneys demonstrate1 no hydronephrosis.2 no nephrolithiasis. Stomach is partially distended. Small bowel loops are normal in caliber. Large bowel nondistended. No secondary signs for appendicitis. Bladder partially distended. A hyperdense lesion within the pelvic cul-de-sac region measuring 4.8 by 3.8 cm, previously 5.7 x 4.1 cm. Moderate volume ascites fluid. Soft tissue edema / anasarca. [id number] thoracolumbar degenerative disc disease. IMPRESSION: Limited evaluation without contrast. Innumerable hepatic hypodense lesions throughout the hepatic parenchyma replacing more than 50% of th e liver most consistent with metastatic disease/malignancy. Recommend multiphasic MRI abdomen with a nd without contrast and oncology consultation. Cirrhotic morphology appearance of the liver and moderate volume ascites fluid. Cholelithiasis. Moderate left pleural effusion and left lower lobe airspace consolidation/atelectasis. Hyperdense lesion in the pelvic cul-de-sac measuring 4.8 x 3.8 cm, previously 5.7 x 4.1 cm. This can be further evaluated with MRI pelvis with and without contrast. Differential considerations include exophytic leiomyoma, chief hospital administrator malignancy. Soft tissue edema/anasarca. Other findings as described.
--- NOTE | 2025-01-08 13:23 | DVHINCON2 ---
GI Consult Consult Note GI consult note Date of Consultation: 01/08/2025 Chief Complaint: Acute lower GI bleed Referring Physician: Anuel SMILEY H&P: 38-year-old female with past medical history of severe anemia with transfusions in June and August of 2024, uterine fibroid, chronic liver disease secondary to alcohol use, gallstone, admitted with complains of left upper quadrant pain. Patient has nausea. Denies vomiting or hematemesis. Last bowel movement this a.m. dark in color. Had red spots early in the week and her bowels but none now. No EGD in past. Patient was drinking half pt every day Past Medical History: Anemia, CKF, liver Past Surgical History: Left leg surgery Social History: NO smoking, Heavy drinking ETOH Family History: Noncontributory Review of Systems: Constitutional: no fever, chill, weight loss HEENT: no eye pain, no hearing loss, no oral lesion, no scleral icterus Heart: no chest pain, no chest pressure Lung: no cough, no dyspnea with exertion Physical exam: General: NAD, AAOX3 HEENT: + scleral icterus Chest: lung cerrato clear to auscultation Heart: RRR, no murmur Abdomen: Moderate-distended, no tenderness to palpation, +BS Labs: Labs Test 01/08/25 11:35 01/08/25 10:13 01/08/25 08:30 01/07/25 17:08 Range/Units POC Glucose 94 70-106 mg/dl White Blood Count 5.9 4.4-10.8 10^3/uL Red Blood Count 2.14 L 4.0-5.20 10^6/uL Hemoglobin 6.0 *L 12.2-16.2 g/dL Hematocrit 18.3 L 36.0-46.0 % Mean Corpuscular Volume 85.6 80.0-100.0 fL Mean Corpuscular Hemoglobin 28.3 28.0-32.0 pg Mean Corpuscular Hemoglobin Concent 33.0 32.0-36.0 g/dL Red Cell Distribution Width 21.9 H 11.8-14.3 % Platelet Count 101 L 140-450 10^3/uL Mean Platelet Volume 7.9 6.9-10.8 fL Neutrophils (%) (Auto) 76.6 37.0-80.0 % Lymphocytes (%) (Auto) 11.1 10.0-50.0 % Monocytes (%) (Auto) 10.8 0.0-12.0 % Eosinophils (%) (Auto) 0.8 0.0-7.0 % Basophils (%) (Auto) 0.7 0.0-2.0 % Neutrophils # (Auto) 4.5 1.6-8.6 10 ^3/uL Lymphocytes # (Auto) 0.7 0.4-5.4 10 ^3/uL Monocytes # (Auto) 0.6 0-1.3 10 ^3/uL Eosinophils # (Auto) 0 0-0.8 10 ^3/uL Basophils # (Auto) 0 0-0.2 10 ^3/uL Nucleated Red Blood Cells 0.1 % Reticulocyte Count (auto) 2.52 H 0.5-1.5 % Sodium Level 121 L 136-145 mmol/L Potassium Level 5.4 H 3.5-5.1 mmol/L Chloride Level 90 L 98-107 mmol/L Carbon Dioxide Level 15 L 20-31 mmol/L Anion Gap 16 H 5-15 Blood Urea Nitrogen 34 H 9-23 mg/dL Creatinine 5.62 H 0.550-1.02 mg/dL Glomerular Filtration Rate Calc 9 >90 mL/min BUN/Creatinine Ratio 6.0 L 10.0-20.0 Serum Glucose 83 74-106 mg/dL Serum Osmolality 273 L 278-298 mOsm/kg Calcium Level 9.3 8.7-10.4 mg/dL Iron Level 265 H 50-170 ug/dL Total Iron Binding Capacity 291 250-425 ug/dL Percent Iron Saturation 91.1 H 15-50 % Ferritin 30.9 10-291 ng/mL Total Bilirubin 8.1 H 0.2-1.0 mg/dL Aspartate Amino Transferase (AST) 33 13-40 U/L Alanine Aminotransferase (ALT) 17 7-40 U/L Alkaline Phosphatase 83 46-116 U/L Total Protein 8.0 5.7-8.2 g/dL Albumin 3.5 3.2-4.8 g/dL Thyroid Stimulating Hormone (TSH) 1.88 0.55-4.78 uIU/mL Beta HCG, Quantitative 0.7 L 1.5-4.2 mIU/mL Ammonia 71 H 11-32 umol/L Test 01/07/25 15:55 Range/Units Platelet Estimate Decreased Hypochromasia (manual) Moderate Poikilocytosis (manual) Slight Anisocytosis (manual) Moderate Nathalie Cells Few Prothrombin Time 15.1 H 9.3-11.8 sec Prothrombin Time INR 1.48 H 0.9-1.15 Activated Partial Thromboplast Time 34.5 24.5-34.5 SEC Lipase 109 H 12-53 U/L Imaging: Abdominal ultrasound Findings/Impression: [id number] volume ascites in all [address] abdomen pelvis IMPRESSION: Limited evaluation without contrast. Innumerable hepatic hypodense lesions throughout the hepatic parenchyma replacing more than 50% of the liver most consistent with metastatic disease/malignancy. Recommend multiphasic MRI abdomen with and without contrast and oncology consultation. Cirrhotic morphology appearance of the liver and moderate volume ascites fluid. Cholelithiasis. Moderate left pleural effusion and left lower lobe airspace consolidation/atelectasis. Hyperdense lesion in the pelvic cul-de-sac measuring 4.8 x 3.8 cm, previously 5.7 x 4.1 cm. This can be further evaluated with MRI pelvis with and without contrast. Differential considerations include exophytic leiomyoma, apn malignancy. Soft tissue edema/anasarca. Assessment: Severe anemia Ascites Heavy alcohol use Possible GI bleed History of uterine fibroids Plan: Discussed with Dr. Xu Sharma Monitor labs transfuse if hemoglobin less than seven Stool for occult blood Protonix and Carafate IR consult for paracentesis Ultrasound of gallbladder DC alcohol discussed extensively Correct electrolytes Possible EGD to be planned in 1-2 days when patient is medically stable GI on standby if any active bleeding Discussed plan with patient RN and hospitalist team at bedside Thank you for this consult Date of Service: Jan 08, 2025 Billing Provider: LINUS PARIKH Common Visit Codes: CONSULT ONLY Consultation Codes: [id number] CONSULT <60MIN LINUS PARIKH Jan 08, 2025 13:23
--- NOTE | 2025-01-08 13:28 | DVHINCON2 ---
Date of service: Jan 08, 2025 Referring Physician hospitalist Reason for Consultation anemia History of Present Illness pt is admitted for acute abd pain,no acute vag bleeding and has iireg bleeding.her current anemia is probably due to gi bleed as she is a chronic alcohol drinker.she ALSO HAS K IDNEY DS .HER LAST MENses was in october .sono reveals 8 wks size uterus .her last pap was many yrs ago Past Medical History ckd,liver cirrhosis Family History na Social History 2 sab Patient Family History: Diabetes mellitus G8 MOTHER FH: anemia G8 MOTHER FH: cirrhosis G8 FATHER Hypertension G8 MOTHER Allergies: Coded Allergies: Ketorolac Tromethamine (Verified Allergy, Severe, dizziness, 06/13/24) Penicillins (Verified Allergy, Mild, dizziness, 06/13/24) Home Meds Active Scripts Ferrous Sulfate (FERROUS SULFATE) 325 Mg Tb, 325 MG PO MWF for 30 Days, #30 TAB [facility]/24 Furosemide (Lasix) 20 Mg Tb, 40 MG PO DAILY for 10 Days, #20 TAB [facility] 08/28/24 Cholecalciferol (VITAMIN D) 5,000 Unit Tab, 5000 UNIT OR DAILY for 30 Days, #30 TAB 0 Ref[facility] 08/28/24 Current Medications Current Medications Medications (Trade) Dose Ordered Sig/Bárbara Route PRN Reason Start Time Stop Time Status Last Admin Ondansetron HCl (Zofran) 4 mg Q4HP PRN IV NAUSEA / VOMITING 01/07/25 17:15 01/07/25 19:24 Docusate Sodium (Colace Capsule) 100 mg BIDPRN PRN PO FOR CONSTIPATION 01/07/25 17:15 Morphine Sulfate 2 mg Q4HPRN PRN IV SEVERE PAIN (7-10 PAIN SCALE) 01/07/25 17:15 Nitroglycerin (Ntrostat Sublingual) 0.4 mg Q5MINP PRN SL FOR CHEST PAIN 01/07/25 17:15 Furosemide (Lasix Injection) 40 mg BIDD IV 01/07/25 18:00 01/08/25 10:20 DC 01/08/25 05:59 Spironolactone (Aldactone) 50 mg DAILY PO 01/08/25 10:00 01/08/25 10:20 DC Octreotide Acetate 500 mcg/ Sodium Chloride 100 ml @ 10 mls/hr Q10H IV 01/07/25 17:15 01/08/25 03:28 Levofloxacin 50 ml @ 50 mls/hr DAILY IV 01/08/25 10:00 01/08/25 11:45 Thiamine HCl 100 mg DAILY IV 01/09/25 10:00 Pantoprazole Sodium (Protonix) 40 mg BID IV 01/08/25 22:00 Review of Systems Constitutional: no fever, chill, weight loss HEENT: no eye pain, no hearing loss, no oral lesion, no scleral icterus Heart: no chest pain, no chest pressure Lung: no cough, no dyspnea with exertion Abdomen: see HPI : no pain with urination, normal appearing urine Musculoskeletal: no joint pain, no muscle pain Neurological: no seizure, no loss of sensation, no weakness in extremities Pysch: no depression, no anxiety Derm: no rash, no jaundice Vital Signs Vital Signs Date Time Temp Pulse Resp B/P (MAP) Pulse Ox O2 Delivery O2 Flow Rate FiO2 01/08/25 09:00 98.7 94 17 113/64 (80) 95 98.7 01/07/25 22:23 Room Air* 0 21 Physical Exam HEENT: [pale conjuctivae] NECK: [nl] CARDIAC: [rrr] PULMONARY: [cta] ABDOMEN: [obese,distended] pelvic-vag nl,no bleeding,cx grossly nl,uterus 8 wks size,adenxa nt Labs/Diagnostic Data Labs Test 01/08/25 11:35 01/08/25 10:13 01/08/25 08:30 01/07/25 17:08 Range/Units POC Glucose 94 70-106 mg/dl White Blood Count 5.9 4.4-10.8 10^3/uL Red Blood Count 2.14 L 4.0-5.20 10^6/uL Hemoglobin 6.0 *L 12.2-16.2 g/dL Hematocrit 18.3 L 36.0-46.0 % Mean Corpuscular Volume 85.6 80.0-100.0 fL Mean Corpuscular Hemoglobin 28.3 28.0-32.0 pg Mean Corpuscular Hemoglobin Concent 33.0 32.0-36.0 g/dL Red Cell Distribution Width 21.9 H 11.8-14.3 % Platelet Count 101 L 140-450 10^3/uL Mean Platelet Volume 7.9 6.9-10.8 fL Neutrophils (%) (Auto) 76.6 37.0-80.0 % Lymphocytes (%) (Auto) 11.1 10.0-50.0 % Monocytes (%) (Auto) 10.8 0.0-12.0 % Eosinophils (%) (Auto) 0.8 0.0-7.0 % Basophils (%) (Auto) 0.7 0.0-2.0 % Neutrophils # (Auto) 4.5 1.6-8.6 10 ^3/uL Lymphocytes # (Auto) 0.7 0.4-5.4 10 ^3/uL Monocytes # (Auto) 0.6 0-1.3 10 ^3/uL Eosinophils # (Auto) 0 0-0.8 10 ^3/uL Basophils # (Auto) 0 0-0.2 10 ^3/uL Nucleated Red Blood Cells 0.1 % Reticulocyte Count (auto) 2.52 H 0.5-1.5 % Sodium Level 121 L 136-145 mmol/L Potassium Level 5.4 H 3.5-5.1 mmol/L Chloride Level 90 L 98-107 mmol/L Carbon Dioxide Level 15 L 20-31 mmol/L Anion Gap 16 H 5-15 Blood Urea Nitrogen 34 H 9-23 mg/dL Creatinine 5.62 H 0.550-1.02 mg/dL Glomerular Filtration Rate Calc 9 >90 mL/min BUN/Creatinine Ratio 6.0 L 10.0-20.0 Serum Glucose 83 74-106 mg/dL Serum Osmolality 273 L 278-298 mOsm/kg Calcium Level 9.3 8.7-10.4 mg/dL Iron Level 265 H 50-170 ug/dL Total Iron Binding Capacity 291 250-425 ug/dL Percent Iron Saturation 91.1 H 15-50 % Ferritin 30.9 10-291 ng/mL Total Bilirubin 8.1 H 0.2-1.0 mg/dL Aspartate Amino Transferase (AST) 33 13-40 U/L Alanine Aminotransferase (ALT) 17 7-40 U/L Alkaline Phosphatase 83 46-116 U/L Total Protein 8.0 5.7-8.2 g/dL Albumin 3.5 3.2-4.8 g/dL Thyroid Stimulating Hormone (TSH) 1.88 0.55-4.78 uIU/mL Beta HCG, Quantitative 0.7 L 1.5-4.2 mIU/mL Ammonia 71 H 11-32 umol/L Test 01/07/25 15:55 Range/Units Platelet Estimate Decreased Hypochromasia (manual) Moderate Poikilocytosis (manual) Slight Anisocytosis (manual) Moderate [place] Cells Few Prothrombin Time 15.1 H 9.3-11.8 sec Prothrombin Time INR 1.48 H 0.9-1.15 Activated Partial Thromboplast Time 34.5 24.5-34.5 SEC Lipase 109 H 12-53 U/L Primary Diagnosis severe anemia not related to transplanter orchid disorder probably gi related Admitting Diagnosis: acute abd pain 2' Diagnosis/Comorbidities irreg menses Plan pt needs pap,endometrial biopsy on out pt basis pt advised to fu [place] with transplanter orchid ,will sign off thank you for this consultation Plan discussed with: Patient Visit Coding OBGYN Date of Service: Jan 08, 2025 Billing Provider: ABE LAWLER DO PIPE CHANGER Common Visit Codes: [id number] OBS CARE (HIGH), CONSULTATION ONLY PIPE CHANGER Consultation Codes: [id number] CONSULT <80MIN ABE LAWLER DO Jan 08, 2025 13:28
[2025-01-08] MEDS: LACTULOSE 20Gm/30ML SOLN PO ONE (13:45)
--- NOTE | 2025-01-08 13:52 | DVH ---
PROCEDURE: ULTRASOUND GUIDED PARACENTESIS HISTORY: 39 Female requiring paracentesis. TECHNIQUE: The risks and benefits of the procedure including but not limited to bleeding, infection and injury t o abdominal organs were explained to the patient and written informed consent was obtained. Optimal site for puncture was determined using ultrasound and the area sterilized and draped. Using a 5 [employer]eh catheter, paracentesis was performed in the right lower abdomen. Approximately 2.6 liters of straw colored fluid was removed. The patient tolerated the procedure well. There were no immediate complications. IMPRESSION: Ultrasound-guided paracentesis with no immediate complications.
[2025-01-08] MEDS: ALBUTEROL SULF 2.5 MG/0.5ML(0.5%) NEB SOLN NEB ONE (14:50)
--- NOTE | 2025-01-08 14:59 | DVHINCON2 ---
Date of service: Jan 08, 2025 Referring Physician Judi Leonardo NP Reason for Consultation Acute kidney injury History of Present Illness Mrs. Ferreira is a 39-year-old female with known history of alcohol misuse disorder, cirrhosis who presented for further evaluation and management of nausea. Her clinical course has been notable for diagnosis of severe anemia. She was noted to have significant ascites as well. Patient was not in her room during the time of my rounds at approximately 12:30 p.m.. All the history was obtained through the chart. Current consultation requested due to markedly elevated serum creatinine to the five range. Abdominal imaging notable for kidney ultrasound with report of normal-appearing kidneys. CT imaging of the abdomen and pelvis notable for signs consistent with possible metastatic disease to the liver and a cirrhotic appearance to the liver. Pelvic mass was also noted on CT scan. Past Medical History Alcohol use disorder Allergies: Coded Allergies: Ketorolac Tromethamine (Verified Allergy, Severe, dizziness, 06/13/24) Penicillins (Verified Allergy, Mild, dizziness, 06/13/24) Home Meds Active Scripts Ferrous Sulfate (FERROUS SULFATE) 325 Mg Tb, 325 MG PO MWF for 30 Days, #30 TAB Prov:[facility] 08/28/24 Furosemide (Lasix) 20 Mg Tb, 40 MG PO DAILY for 10 Days, #20 TAB Prov:[facility] 08/28/24 Cholecalciferol (VITAMIN D) 5,000 Unit Tab, 5000 UNIT OR DAILY for 30 Days, #30 TAB 0 Refills Prov:[facility] 08/28/24 Current Medications Current Medications Medications (Trade) Dose Ordered Sig/Bárbara Route PRN Reason Start Time Stop Time Status Last Admin Ondansetron HCl (Zofran) 4 mg Q4HP PRN IV NAUSEA / VOMITING 01/07/25 17:15 01/07/25 19:24 Docusate Sodium (Colace Capsule) 100 mg BIDPRN PRN PO FOR CONSTIPATION 01/07/25 17:15 Morphine Sulfate 2 mg Q4HPRN PRN IV SEVERE PAIN (7-10 PAIN SCALE) 01/07/25 17:15 Nitroglycerin (Ntrostat Sublingual) 0.4 mg Q5MINP PRN SL FOR CHEST PAIN 01/07/25 17:15 Furosemide (Lasix Injection) 40 mg BIDD IV 01/07/25 18:00 01/08/25 10:20 DC 01/08/25 05:59 Spironolactone (Aldactone) 50 mg DAILY PO 01/08/25 10:00 01/08/25 10:20 DC Octreotide Acetate 500 mcg/ Sodium Chloride 100 ml @ 10 mls/hr Q10H IV 01/07/25 17:15 01/08/25 03:28 Levofloxacin 50 ml @ 50 mls/hr DAILY IV 01/08/25 10:00 01/08/25 11:45 Thiamine HCl 100 mg DAILY IV 01/09/25 10:00 Pantoprazole Sodium (Protonix) 40 mg BID IV 01/08/25 22:00 Family History: Diabetes mellitus G8 MOTHER FH: anemia G8 MOTHER FH: cirrhosis G8 FATHER Hypertension G8 MOTHER Review of Systems Review of systems unable to be obtained as patient not in her room. H&P Exam Vital Signs/I&O Vital Sign Date Time Temp Pulse Resp B/P (MAP) Pulse Ox O2 Delivery O2 Flow Rate FiO2 01/08/25 09:00 98.7 94 17 113/64 (80) 95 98.7 01/08/25 07:45 Room Air* 0 21 Intake and Output 01/07/25 01/08/25 19:00 07:00 Intake Total 151 ml 2100 ml Output Total 0 ml Balance 151 ml 2100 ml Intake Oral 0 ml IV Total 151 ml Blood Product 1500 ml Other 600 ml Output Urine Total 0 ml Physical Exam Physical exam deferred as patient is not in her room. Labs/Diagnostic Data Labs/Diagnostic Data Laboratory Tests Test 01/08/25 14:15 01/08/25 11:35 01/08/25 10:13 01/08/25 08:30 Range/Units POC Glucose 94 70-106 mg/dl White Blood Count 5.9 4.4-10.8 10^3/uL Red Blood Count 2.14 L 4.0-5.20 10^6/uL Hemoglobin 6.0 *L 12.2-16.2 g/dL Hematocrit 18.3 L 36.0-46.0 % Mean Corpuscular Volume 85.6 80.0-100.0 fL Mean Corpuscular Hemoglobin 28.3 28.0-32.0 pg Mean Corpuscular Hemoglobin Concent 33.0 32.0-36.0 g/dL Red Cell Distribution Width 21.9 H 11.8-14.3 % Platelet Count 101 L 140-450 10^3/uL Mean Platelet Volume 7.9 6.9-10.8 fL Neutrophils (%) (Auto) 76.6 37.0-80.0 % Lymphocytes (%) (Auto) 11.1 10.0-50.0 % Monocytes (%) (Auto) 10.8 0.0-12.0 % Eosinophils (%) (Auto) 0.8 0.0-7.0 % Basophils (%) (Auto) 0.7 0.0-2.0 % Neutrophils # (Auto) 4.5 1.6-8.6 10 ^3/uL Lymphocytes # (Auto) 0.7 0.4-5.4 10 ^3/uL Monocytes # (Auto) 0.6 0-1.3 10 ^3/uL Eosinophils # (Auto) 0 0-0.8 10 ^3/uL Basophils # (Auto) 0 0-0.2 10 ^3/uL Nucleated Red Blood Cells 0.1 % Reticulocyte Count (auto) 2.52 H 0.5-1.5 % Sodium Level 121 L 136-145 mmol/L Potassium Level 5.4 H 3.5-5.1 mmol/L Chloride Level 90 L 98-107 mmol/L Carbon Dioxide Level 15 L 20-31 mmol/L Anion Gap 16 H 5-15 Blood Urea Nitrogen 34 H 9-23 mg/dL Creatinine 5.62 H 0.550-1.02 mg/dL Glomerular Filtration Rate Calc 9 >90 mL/min BUN/Creatinine Ratio 6.0 L 10.0-20.0 Serum Glucose 83 74-106 mg/dL Serum Osmolality 273 L 278-298 mOsm/kg Calcium Level 9.3 8.7-10.4 mg/dL Iron Level 265 H 50-170 ug/dL Total Iron Binding Capacity 291 250-425 ug/dL Percent Iron Saturation 91.1 H 15-50 % Ferritin 30.9 10-291 ng/mL Total Bilirubin 8.1 H 0.2-1.0 mg/dL Aspartate Amino Transferase (AST) 33 13-40 U/L Alanine Aminotransferase (ALT) 17 7-40 U/L Alkaline Phosphatase 83 46-116 U/L Total Protein 8.0 5.7-8.2 g/dL Albumin 3.5 3.2-4.8 g/dL Thyroid Stimulating Hormone (TSH) 1.88 0.55-4.78 uIU/mL Beta HCG, Quantitative 0.7 L 1.5-4.2 mIU/mL Test 01/08/25 02:11 01/07/25 17:08 01/07/25 15:55 Range/Units Hemoglobin 5.9 #*L 4.5 *L 12.2-16.2 g/dL Hematocrit 17.9 #L 14.9 L 36.0-46.0 % Sodium Level 120 L 121 L 121 L 136-145 mmol/L Potassium Level 5.3 H 5.2 H 4.9 3.5-5.1 mmol/L Chloride Level 91 L 90 L 91 L 98-107 mmol/L Carbon Dioxide Level 14 L 14 L 14 L 20-31 mmol/L Anion Gap 15 17 H 16 H 5-15 Blood Urea Nitrogen 32 H 35 H 34 H 9-23 mg/dL Creatinine 5.66 H 5.53 H 5.48 H 0.550-1.02 mg/dL Glomerular Filtration Rate Calc 9 10 10 >90 mL/min BUN/Creatinine Ratio 5.7 L 6.3 L 6.2 L 10.0-20.0 Serum Glucose 79 82 81 74-106 mg/dL Calcium Level 8.6 L 9.4 8.6 L 8.7-10.4 mg/dL Ammonia 71 H 11-32 umol/L White Blood Count 6.8 4.4-10.8 10^3/uL Red Blood Count 1.75 L 4.0-5.20 10^6/uL Mean Corpuscular Volume 85.0 80.0-100.0 fL Mean Corpuscular Hemoglobin 25.6 L 28.0-32.0 pg Mean Corpuscular Hemoglobin Concent 30.1 L 32.0-36.0 g/dL Red Cell Distribution Width 25.2 H 11.8-14.3 % Platelet Count 128 L 140-450 10^3/uL Mean Platelet Volume 8.4 6.9-10.8 fL Neutrophils (%) (Auto) 69.1 37.0-80.0 % Lymphocytes (%) (Auto) 20.3 10.0-50.0 % Monocytes (%) (Auto) 9.3 0.0-12.0 % Eosinophils (%) (Auto) 0.6 0.0-7.0 % Basophils (%) (Auto) 0.7 0.0-2.0 % Neutrophils # (Auto) 4.7 1.6-8.6 10 ^3/uL Lymphocytes # (Auto) 1.4 0.4-5.4 10 ^3/uL Monocytes # (Auto) 0.6 0-1.3 10 ^3/uL Eosinophils # (Auto) 0 0-0.8 10 ^3/uL Basophils # (Auto) 0.1 0-0.2 10 ^3/uL Nucleated Red Blood Cells 0.0 % Platelet Estimate Decreased Hypochromasia (manual) Moderate Poikilocytosis (manual) Slight Anisocytosis (manual) Moderate [place] Cells Few Prothrombin Time 15.1 H 9.3-11.8 sec Prothrombin Time INR 1.48 H 0.9-1.15 Activated Partial Thromboplast Time 34.5 24.5-34.5 SEC Serum Osmolality 290 278-298 mOsm/kg Total Bilirubin 4.1 H 0.2-1.0 mg/dL Aspartate Amino Transferase (AST) 38 13-40 U/L Alanine Aminotransferase (ALT) 17 7-40 U/L Alkaline Phosphatase 88 46-116 U/L Total Protein 8.2 5.7-8.2 g/dL Albumin 3.6 3.2-4.8 g/dL Lipase 109 H 12-53 U/L Assessment IMP: 1) Hemodynamically mediated acute kidney injury and vasomotor nephropathy in the setting of severe anemia, outpatient medications unknown. 2) CKD stage II, baseline creatinine less than one. 3) cirrhosis in the setting of alcohol use disorder 4) multiple hepatic masses 5) severe anemia 6) chronic hyponatremia possibly secondary to non osmotic ADH release in the setting of cirrhosis 7) cirrhosis with ascites REC: - we will check UA, urine sodium, urine creatinine, urine osmolality - judicious IV fluid, trial of volume expansion - b.i.d. chemistry panels to monitor serum sodium and potassium - currently without urgent indication for dialysis, we will continue to follow closely with you. Thank you for the consultation. Plan discussed with: Other GRAEME HOUGH MD Jan 08, 2025 14:59
[2025-01-08 16:39] LABS: Hematocrit 19.1 % (36.0-46.0)
[2025-01-08 16:45] LABS: Hemoglobin 6.3 g/dL (12.2-16.2)
--- NOTE | 2025-01-08 16:59 | DVHPNRES ---
Progress Note Date Seen: Jan 08, 2025 Resident Creating Document: ROSE MARY BOATENG RESIDENT Medical Necessity Reason Pt with a Central, PICC or Fol: No Subjective Review of Systems Patient is a 38-year-old female with past medical history of chronic severe anemia which required blood transfusions via before in June on August, uterine fibroids, chronic liver ascites who came to the ED with chief complaint of severe diffuse abdominal pain 8/10 in intensity, which radiates to the back, gradual increase in shortness of breath, and nausea since the past week. She complained of severe bloating and abdominal swelling since last Saturday, dry mouth, dry cough, dizziness, and bilateral leg pain due to edema. but he denies any hematemesis, headaches, diarrhea, dysuria, hematuria, but she complains her stool is darker than usual. Patient was supposed to follow-up with OBGYN for possible hysterectomy but did not. She states that she had no prior diagnosis of cirrhosis but was told during her June 2024 admission that she had liver and kidney damage. 01/08/25 Patient seen at bedside. Patient is alert x3, in moderate distress, has shortness of breath, the associated with nausea, dizziness, diffuse lower abdominal tenderness and bloating. She said that she feels bloated since last Saturday and her stool appears dark brown, soft but she denies any hematemesis, hematuria, vaginal bleeding. She also complains of dry cough, a dry mouth Patient states that her last drink was last . Patient also had bleeding in her mouth. Patient is able to pass gas, had a bowel movement, is making urine. Patient has 4+ bilateral pitting edema to the thighs. Rectal exam was done and showed no stool or blood, vaginal exam was done and showed no bleeding from the vagina. Patient denies having any vaginal bleeding Since October, her periods are irregular. CT abdomen shows Innumerable hepatic hypodense lesions throughout the hepatic parenchyma replacing more than 50% of the liver most consistent with metastatic disease/malignancy. GI, OBGYN, nephrology was consulted. Paracentesis done by IR 2.6 L was drained. Objective vital signs Vital Sign Date Time Temp Pulse Resp B/P (MAP) Pulse Ox O2 Delivery O2 Flow Rate FiO2 01/08/25 15:05 102 18 100 01/08/25 14:50 Room Air* 0 21 01/08/25 09:00 98.7 113/64 (80) 98.7 Total Intake and Output 01/07/25 01/07/25 01/08/25 15:00 23:00 07:00 Intake Total 751 ml 1500 ml Output Total 0 ml Balance 751 ml 1500 ml medications Current Medications Medications Dose Ordered Sig/Bárbara Route Start Time Stop Time Status Last Admin Dose Admin Ondansetron HCl 4 mg Q4HP PRN IV 01/07/25 17:15 01/07/25 19:24 4 MG Docusate Sodium 100 mg BIDPRN PRN PO 01/07/25 17:15 Morphine Sulfate 2 mg Q4HPRN PRN IV 01/07/25 17:15 Nitroglycerin 0.4 mg Q5MINP PRN SL 01/07/25 17:15 Octreotide Acetate 500 mcg/ Sodium Chloride 100 ml @ 10 mls/hr Q10H IV 01/07/25 17:15 01/08/25 03:28 10 MLS/HR Levofloxacin 50 ml @ 50 mls/hr DAILY IV 01/08/25 10:00 01/08/25 11:45 50 MLS/HR Thiamine HCl 100 mg DAILY IV 01/09/25 10:00 Pantoprazole Sodium 40 mg BID IV 01/08/25 22:00 Examination General: Patient alert and oriented in person, place and time. Patient following commands. HEENT: Normocephalic, atraumatic, moist mucous membranes, bleeding gums Respiratory/pulmonary: Clear lungs bilaterally, vesicular murmurs present in almost all lung cerrato, no associated crackles or wheezes. Cardiovascular: Normal heart sounds S1 and S2 with no associated murmurs Abdomen: Diffuse abdominal pain, obese abdomen, Extremities: 4+ bilateral pitting edema Peripheral Pulses: 3+ Radial (R). 3+ Radial (L). 3+ Dorsalis pedis (R). 3+ Dorsalis pedis(L) Skin: No rashes or pruritus, there is no sacral edema present at this time. Neurological: Intact cranial nerves with no focal neurologic deficits Rectal exam was performed with liquor inspector, no anal tags, anal fissures, fistulas noted , had a good Shpinter tone, no blood was noted on removal, no masses were palpable Vaginal exam was performed with liquor inspector, no vaginal bleeding noted, white mucus discharge seen laboratory and microbiology Laboratory Tests 01/08/25 16:06 01/08/25 08:30 Test 01/08/25 16:06 Range/Units Serum Glucose Pending Labs and/or images reviewed: Labs reviewed by me, Image(s) reviewed by me Problem List/Assessment/Plan Problem List/Assessment/Plan # Acute on chronic Decompensated Liver Failure with Ascites likely secondary to alcoholic liver disease # Acute Upper GI Bleed with Melena likely variceal vs. portal hypertensive gastropathy- # Acute blood loss Symptomatic Anemia ? secondary to GI bleeding currently transfers and 4th PRBC and FFP # ? multiple hepatic masses- evident CT abdomen pelvis - USG- [id number] volume ascites in all 4 quadrants. - IR consult - Ultrasound-guided paracentesis 2.6 l removed with no immediate complications, sent for diadnostics - CT abd/pel showed Cirrhotic morphology appearance of the liver and moderate volume ascites fluid. Innumerable hepatic hypodense lesions throughout the hepatic parenchyma replacing more than 50% of the liver most consistent with metastatic disease/malignancy. Recommend multiphasic MRI abdomen with and without contrast and oncology consultation. - GI- Possible EGD to be planned in 1-2 days when patient is medically stable - IV protonix drip Dc'd changed to IV 40 mg BID - Octreotide drip per GI recommendation for variceal bleed prophylaxis - Start levaquin for spontaneous bacterial peritonitis (SBP) prophylaxis - Trend LFTs, INR, bilirubin daily - Ammonia level elevated - Avoid hepatotoxic medications - npo for now - Transfuse PRBCs to maintain Hgb >7 g/dL (higher if actively bleeding or unstable) - Monitor for signs of hemodynamic instability - Iron studies, reviewed no iron deficiency - occult blood in stool, pending - on rectal exam, no masses or gross blood seen # Acute Kidney Injury likely hepatorenal syndrome vs. pre-renal azotemia # Acute kidney injury and vasomotor nephropathy in the setting of severe anemia, outpatient medications unknown. # hypervolemic hypotonic hyponatremia possibly secondary to cirrhosis # gap metabolic acidosis secondary to lactic acid - Nephrology consult for evaluation of severe MARSHALL (creatinine 5.48, baseline 0.78) - Strict I/O, - daily weights - Avoid nephrotoxins - Monitor electrolytes closely - Renal ultrasound Normal sonographic appearance of the kidneys. - nephrology were noted the patient and advised to order more urine studies and judicious IV fluids and trial of volume expansion. - ordered urine sodium and crea to check fena - Monitor sodium q46h, # Uterine Fibroids no bleeding since 11/01- outpatient follow-up # abnormal uterine bleeding # Chronic Alcohol Dependence # Noncompliance - [facility] protocol for withdrawal prevention - Thiamine 100 mg daily, folic acid, multivitamin po daily - Counseling once stable # Gallstones , cholelithiasis- outpatient follow-up # History of miscarriage PUD PPX: Protonix VTE PPX: Patient is bleeding, SCDs Diet NPO Goals of care discussed with the patient for more than 27 minutes: Full code status Case discussed with Dr. Interiano Plan discussed with: Patient My Orders My Orders Orders - ROSE MARY BOATENG Procedure Category Date Status Time * [facility] Medical Economics Consultant CONS 01/08/25 Transmitted 10:13 * Account Strategist Consultation CONS 01/08/25 Transmitted 10:13 Urinalysis LAB 01/08/25 Logged 10:13 Drug Screen LAB 01/08/25 Logged 10:13 Thiamine Inj PHA 01/09/25 In Process 10:00 Urine LAB 01/08/25 Logged Protein/Creatinine Urine Sodium LAB 01/08/25 Logged 10:13 CC Plasma Assessment Blood Product Administration S: 1730 Date of Service: Jan 08, 2025 Billing Provider: GONZALO GREGORY MD Common Visit Codes: [id number] INP/OBS CARE(HIGH) ROSE MARY BOATENG Jan 08, 2025 16:59 GONZALO GREGORY MD Jan 11, 2025 00:49
[2025-01-08 17:08] LABS: Potassium 4.7 mmol/L (3.5-5.1)
[2025-01-08 17:09] LABS: Anion Gap 16 (5-15); Calcium 8.6 mg/dL (8.7-10.4); Carbon Dioxide 15 mmol/L (20-31); Chloride 92 mmol/L (98-107); Sodium 123 mmol/L (136-145)
[2025-01-08 17:14] LABS: BUN/Creatinine Ratio 6.7 (10.0-20.0)
[2025-01-08 17:32] LABS: Blood Urea Nitrogen 41 mg/dL (9-23); Glucose 110 mg/dL (74-106)
[2025-01-08 17:32] LABS: Protein, Urine 232.7 mg/dL (1-14)
[2025-01-08 17:34] LABS: Opiate Scree,Urine Neg (NEGATIVE)
[2025-01-08 17:35] LABS: Urine Amorphous Crystal MOD /hpf (None Seen); Urine Protein, UAD 2+ (Negative)
[2025-01-08 17:42] LABS: Amphetamine Screen, Urine Neg (NEGATIVE); Barbiturate Scree,Urine Neg (NEGATIVE); Benzodiazephine Screen, Urine Neg (NEGATIVE); Cannabinoid Screen, Urine Neg (NEGATIVE); Cocaine Screen, Urine Neg (NEGATIVE); Phencyclidine Screen, Urine Neg (NEGATIVE)
[2025-01-08 18:35] LABS: Hematocrit 18.8 % (36.0-46.0)
[2025-01-08 18:38] LABS: Hemoglobin 5.9 g/dL (12.2-16.2)
[2025-01-08] MEDS: SODIUM CHLORIDE 0.9% 1,000 ML IV ONE (18:42)
[2025-01-08 18:43] LABS: Potassium 4.8 mmol/L (3.5-5.1)
[2025-01-08 18:45] LABS: Anion Gap 16 (5-15)
[2025-01-08 18:50] LABS: BUN/Creatinine Ratio 6.5 (10.0-20.0)
[2025-01-08 18:52] LABS: Blood Urea Nitrogen 41 mg/dL (9-23); Carbon Dioxide 15 mmol/L (20-31); Chloride 92 mmol/L (98-107); Glucose 116 mg/dL (74-106); Sodium 123 mmol/L (136-145)
[2025-01-08 18:55] LABS: Lactic Acid w/Reflex 2.6 mmol/L (0.4-2.0)
[2025-01-08 19:00] LABS: Calcium 8.5 mg/dL (8.7-10.4)
[2025-01-08 19:00] LABS: Base Excess -10.7 mmol/L (-2.0-3.0)
[2025-01-08] MEDS: PANTOPRAZOLE 40 MG/10 ML VIAL INJ IV SCH (21:30)
[2025-01-09] VITALS (14 sets, daily range): BP systolic 100–118; BP diastolic 40–68; PULSE 87–100; RESP 16–22; TEMP 97.4–99.5; O2SAT 90–100
[2025-01-09 06:16] LABS: Hematocrit 19.1 % (36.0-46.0); Mean Corpuscular Hemoglobin 28.5 pg (28.0-32.0); Mean Corpuscular Volume 84.6 fL (80.0-100.0); Nucleated Red Blood Cells % 0.1 %
[2025-01-09 06:23] LABS: Alanine Aminotransferase 18 U/L (7-40); Albumin 3.5 g/dL (3.2-4.8); Alkaline Phosphatase 76 U/L (46-116); Anion Gap 14 (5-15); BUN/Creatinine Ratio 5.5 (10.0-20.0); Magnesium 1.9 mg/dL (1.6-2.6); Potassium 4.8 mmol/L (3.5-5.1); Total Protein 7.9 g/dL (5.7-8.2)
[2025-01-09 06:26] LABS: INR 1.52 (0.9-1.15); Partial Thromboplastin Time 31.8 SEC (24.5-34.5); Prothrombin Time 15.5 sec (9.3-11.8)
[2025-01-09 06:29] LABS: Bilirubin, Total 8.0 mg/dL (0.2-1.0); Blood Urea Nitrogen 36 mg/dL (9-23); Calcium 8.6 mg/dL (8.7-10.4); Carbon Dioxide 17 mmol/L (20-31); Chloride 92 mmol/L (98-107); Glucose 135 mg/dL (74-106); Sodium 123 mmol/L (136-145)
[2025-01-09 06:34] LABS: Hemoglobin 6.5 g/dL (12.2-16.2)
--- NOTE | 2025-01-09 08:12 | PRN ---
Misceleneous Note Note Note January 09, 2025 Subjective: Patient continues to have abdominal pain. She denies any melena or hematemesis. Patient states that she was drinking half a pt of vodka daily for months Current Medications Medications (Trade) Dose Ordered Sig/Bárbara Route Start Time Stop Time Status Last Admin Dose Admin Ondansetron HCl (Zofran) 4 mg Q4HP PRN IV 01/07/25 17:15 01/07/25 19:24 Docusate Sodium (Colace Capsule) 100 mg BIDPRN PRN PO 01/07/25 17:15 Morphine Sulfate 2 mg Q4HPRN PRN IV 01/07/25 17:15 Nitroglycerin (Ntrostat Sublingual) 0.4 mg Q5MINP PRN SL 01/07/25 17:15 Octreotide Acetate 500 mcg/ Sodium Chloride 100 ml @ 10 mls/hr Q10H IV 01/07/25 17:15 01/08/25 23:12 Levofloxacin 50 ml @ 50 mls/hr DAILY IV 01/08/25 10:00 01/08/25 11:45 Thiamine HCl 100 mg DAILY IV 01/09/25 10:00 Pantoprazole Sodium (Protonix) 40 mg BID IV 01/08/25 22:00 01/08/25 21:30 Vital Signs Date Time Temp Pulse Resp B/P (MAP) Pulse Ox O2 Delivery O2 Flow Rate FiO2 01/09/25 05:00 98.9 98 16 117/60 (79) 95 98.9 01/08/25 20:00 Room Air* 0 21 General: Alert and oriented HEENT: Fatigued-appearing, scleral icterus otherwise NC/AT EOMI Heart: Regular rate and rhythm, 4/6 systolic murmur Abdomen: Distended, moderate tenderness palpation Extremity: No clubbing cyanosis or edema Labs Test 01/09/25 04:20 01/08/25 20:01 01/08/25 18:20 01/08/25 18:06 Range/Units White Blood Count 6.5 4.4-10.8 10^3/uL Red Blood Count 2.26 L 4.0-5.20 10^6/uL Hemoglobin 6.5 *L 12.2-16.2 g/dL Hematocrit 19.1 L 36.0-46.0 % Mean Corpuscular Volume 84.6 80.0-100.0 fL Mean Corpuscular Hemoglobin 28.5 28.0-32.0 pg Mean Corpuscular Hemoglobin Concent 33.7 32.0-36.0 g/dL Red Cell Distribution Width 21.8 H 11.8-14.3 % Platelet Count 89 L 140-450 10^3/uL Mean Platelet Volume 8.4 6.9-10.8 fL Neutrophils (%) (Auto) 77.5 37.0-80.0 % Lymphocytes (%) (Auto) 9.3 L 10.0-50.0 % Monocytes (%) (Auto) 11.6 0.0-12.0 % Eosinophils (%) (Auto) 0.8 0.0-7.0 % Basophils (%) (Auto) 0.8 0.0-2.0 % Neutrophils # (Auto) 5.0 1.6-8.6 10 ^3/uL Lymphocytes # (Auto) 0.6 0.4-5.4 10 ^3/uL Monocytes # (Auto) 0.7 0-1.3 10 ^3/uL Eosinophils # (Auto) 0.1 0-0.8 10 ^3/uL Basophils # (Auto) 0 0-0.2 10 ^3/uL Nucleated Red Blood Cells 0.1 % Prothrombin Time 15.5 H 9.3-11.8 sec Prothrombin Time INR 1.52 H 0.9-1.15 Activated Partial Thromboplast Time 31.8 24.5-34.5 SEC Sodium Level 123 L 136-145 mmol/L Potassium Level 4.8 3.5-5.1 mmol/L Chloride Level 92 L 98-107 mmol/L Carbon Dioxide Level 17 L 20-31 mmol/L Anion Gap 14 5-15 Blood Urea Nitrogen 36 H 9-23 mg/dL Creatinine 6.52 H 0.550-1.02 mg/dL Glomerular Filtration Rate Calc 8 >90 mL/min BUN/Creatinine Ratio 5.5 L 10.0-20.0 Serum Glucose 135 H 74-106 mg/dL Calcium Level 8.6 L 8.7-10.4 mg/dL Phosphorus Level 6.2 H 2.4-5.1 mg/dL Magnesium Level 1.9 1.6-2.6 mg/dL Total Bilirubin 8.0 H 0.2-1.0 mg/dL Aspartate Amino Transferase (AST) 32 13-40 U/L Alanine Aminotransferase (ALT) 18 7-40 U/L Alkaline Phosphatase 76 46-116 U/L Ammonia 109 H 11-32 umol/L Total Protein 7.9 5.7-8.2 g/dL Albumin 3.5 3.2-4.8 g/dL Lactic Acid Level 3.3 *H 0.4-2.0 mmol/L Tumor Marker Alpha Fetoprotein 2.0 0.0-6.4 ng/mL Blood Gas Specimen Type Arterial Blood Gas Sample Site Right radial Blood Gas Patient Temperature 37.0 Arterial Blood Date Drawn [id number] Arterial Blood pH 7.374 7.350-7.450 Arterial Blood Partial Pressure CO2 23.6 L 32.0-45.0 mmHg Arterial Blood Partial Pressure O2 68.1 L 83.0-108.0 mmHg Arterial Blood HCO3 13.5 L 21.0-28.0 mmol/L Arterial Blood Oxygen Saturation 90.9 L 94.0-98.0 % Arterial Blood Base Excess -10.7 L -2.0-3.0 mmol/L Arterial Blood Oxyhemoglobin 88.7 L 94.0-98.0 % Arterial Blood Carboxyhemoglobin 1.8 H 0.5-1.5 % Arterial Blood Methemoglobin 0.6 0.0-1.5 % Jeffrey Test Yes Blood Gas Total Hemoglobin 6.50 *L 12.0-16.0 g/dL Blood Gas Modality Room air Blood Gas Spontaneous Rate 22 FiO2 % 21.0 Blood Gas Critical Value Read Back yes Blood Gas Notified Whom md paddy de la torre Blood Gas Notified Time [id number] Blood Gas Notified By pantera Cardenas 01/08/25 16:30 01/08/25 16:06 01/08/25 15:00 01/08/25 14:15 Range/Units Urine Color Yellow Yellow Urine Clarity Turbid H Clear Urine pH 5.5 5.0-9.0 Urine Specific [place] 1.014 1.001-1.035 Urine Protein 2+ H Negative Urine Ketones Negative Negative Urine Blood Negative Negative /uL Urine Nitrite Negative Negative Urine Bilirubin 1+ H Negative Urine Urobilinogen 2 H Negative mg/dL Urine Leukocyte Esterase Negative Negative /uL Urine RBC 2 0 - 4 /hpf Urine Microscopic WBC 3 0-5 /HPF Urine Squamous Epithelial Cells Few <5 /hpf Urine Amorphous Crystals Mod None Seen /hpf Urine Bacteria Few H None Seen /hpf Urine Osmolality 304 mOsm/kg Urine Creatinine 243.12 H 30.0-125.0 mg/dL Urine Protein/Creatinine Ratio 0.96 Urine Sodium 14 L 40-220 mmol/L Urine Glucose Normal Normal mg/dL Urine Total Protein 232.7 H 1-14 mg/dL Urine Opiates Screen Neg NEGATIVE Urine Fentanyl Screen Neg NEGATIVE Urine Barbiturates Screen Neg NEGATIVE Urine Phencyclidine Screen Neg NEGATIVE Urine Amphetamines Screen Neg NEGATIVE Urine Benzodiazepines Screen Neg NEGATIVE Urine Cocaine Screen Neg NEGATIVE Urine Cannabinoids Screen Neg NEGATIVE Plasma/Serum Blood Alcohol < 3.0 <10 mg/dL Body Fluid Source Peritoneal fluid Body Fluid pH 8.0 Body Fluid WBC (Manual) 801 H 0-200 CUMM Body Fluid RBC (Manual) 3308 H 0-2000 CUMM Body Fluid Mononuclear Cells 89 % Body Fluid Polymorphonuclear Cells 11 0-25 % Test 01/08/25 11:35 01/08/25 10:13 01/08/25 08:30 01/07/25 15:55 Range/Units POC Glucose 94 70-106 mg/dl Reticulocyte Count (auto) 2.52 H 0.5-1.5 % Serum Osmolality 273 L 278-298 mOsm/kg Iron Level 265 H 50-170 ug/dL Total Iron Binding Capacity 291 250-425 ug/dL Percent Iron Saturation 91.1 H 15-50 % Ferritin 30.9 10-291 ng/mL Thyroid Stimulating Hormone (TSH) 1.88 0.55-4.78 uIU/mL Beta HCG, Quantitative 0.7 L 1.5-4.2 mIU/mL Platelet Estimate Decreased Hypochromasia (manual) Moderate Poikilocytosis (manual) Slight Anisocytosis (manual) Moderate Karthaus Cells Few Lipase 109 H 12-53 U/L Impression: 1. Cirrhosis 2. Ascites 3. Numerous lesions in the liver suspicious for metastatic disease 4. Pelvic mass 5. Anemia 6. History of alcohol abuse 7. Jaundice Recommendations: 1. Metastatic cancer workup 2. MRI told this 3. Chemist Physical evaluation 4. Transfuse as needed 5. Protonix 6. Hold off on EGD and colonoscopy at this time 7.will follow NOLAN LOPEZ MD Jan 09, 2025 08:12
[2025-01-09] MEDS: MORPHINE SULFATE INJ 2 MG/ml SYRG IV PRN (08:25)
[2025-01-09] MEDS: THIAMINE 100mg/ml INJ (200mg/2ml VIAL) IV SCH (08:26)
[2025-01-09] MEDS ORDERED: BUMETANIDE INJECTION 25 MG in GIVE UN-DILUTED 0 ML IV SCH (12:00)
[2025-01-09 13:08] LABS: Glucose, Body Fluid 106.0 mg/dL (.)
[2025-01-09] MEDS: ALBUMIN 25% 100 ML IV SCH (13:12)
[2025-01-09] MEDS: LACTULOSE 20Gm/30ML SOLN PO ONE (13:12)
[2025-01-09] MEDS: BUMETANIDE 2.5mg/10ml (0.25 mg/ml) INJ IV ONE (13:24)
[2025-01-09] MEDS: BUMETANIDE INJECTION 10 ML ONE (13:24)
--- NOTE | 2025-01-09 14:09 | DVHPNRES ---
Progress Note Date Seen: Jan 09, 2025 Resident Creating Document: ROSE MARY BOATENG RESIDENT Medical Necessity Reason Pt with a Central, PICC or Fol: No Subjective Review of Systems Patient is a 38-year-old female with past medical history of chronic severe anemia which required blood transfusions via before in June on August, uterine fibroids, chronic liver ascites who came to the ED with chief complaint of severe diffuse abdominal pain 8/10 in intensity, which radiates to the back, gradual increase in shortness of breath, and nausea since the past week. She complained of severe bloating and abdominal swelling since last Saturday, dry mouth, dry cough, dizziness, and bilateral leg pain due to edema. but he denies any hematemesis, headaches, diarrhea, dysuria, hematuria, but she complains her stool is darker than usual. Patient was supposed to follow-up with OBGYN for possible hysterectomy but did not. She states that she had no prior diagnosis of cirrhosis but was told during her June 2024 admission that she had liver and kidney damage. 01/08/25 Patient seen at bedside. Patient is alert x3, in moderate distress, has shortness of breath, the associated with nausea, dizziness, diffuse lower abdominal tenderness and bloating. She said that she feels bloated since last Saturday and her stool appears dark brown, soft but she denies any hematemesis, hematuria, vaginal bleeding. She also complains of dry cough, a dry mouth Patient states that her last drink was last . Patient also had bleeding in her mouth. Patient is able to pass gas, had a bowel movement, is making urine. Patient has 4+ bilateral pitting edema to the thighs. Rectal exam was done and showed no stool or blood, vaginal exam was done and showed no bleeding from the vagina. Patient denies having any vaginal bleeding Since October, her periods are irregular. CT abdomen shows Innumerable hepatic hypodense lesions throughout the hepatic parenchyma replacing more than 50% of the liver most consistent with metastatic disease/malignancy. GI, OBGYN, nephrology was consulted. Paracentesis done by IR 2.6 L was drained. 01/09/25 Patient seen at bedside. Patient is alert x3, in moderate distress, has shortness of breath and complained of dizziness, nausea, epigastric pain, states that it was hard to sleep at night, has tremors in her hands and pins and needle sensation in both feet. Her creatinine has increased from 5.48 to 6.52. Nephrology was consulted and recommended- repeat urine Na / persistently low urine Na more indicative of HRS, and continue bumex drip. Another unit of PRBC was ordered. HB is 6.5, platelets 89. Patient has minimal put 50 mL in 12 hours. Patient still has 4+ pitting edema to the pelvis. GI is on board and recommended Metastatic cancer workup, Hold off on EGD and colonoscopy at this time. Ascitic fluid shows ascitic fluid WBC- pH 8.0, [id number], RBC 3308, fluid glucose 106, total protein 3.1. Patient is stopped IV fluids, given IV albumin 25% Q8 hourly, Bumex drip. Objective vital signs Vital Sign Date Time Temp Pulse Resp B/P (MAP) Pulse Ox O2 Delivery O2 Flow Rate FiO2 01/09/25 13:24 104/62 01/09/25 13:00 98.3 100 20 90 98.3 01/09/25 08:00 Room Air* 0 21 Total Intake and Output 01/08/25 01/08/25 01/09/25 15:00 23:00 07:00 Intake Total 50 ml 100 ml 1405 ml Output Total 25 ml Balance 50 ml 100 ml 1380 ml medications Current Medications Medications Dose Ordered Sig/Bárbara Route Start Time Stop Time Status Last Admin Dose Admin Ondansetron HCl 4 mg Q4HP PRN IV 01/07/25 17:15 01/07/25 19:24 4 MG Docusate Sodium 100 mg BIDPRN PRN PO 01/07/25 17:15 Morphine Sulfate 2 mg Q4HPRN PRN IV 01/07/25 17:15 01/09/25 08:25 2 MG Nitroglycerin 0.4 mg Q5MINP PRN SL 01/07/25 17:15 Octreotide Acetate 500 mcg/ Sodium Chloride 100 ml @ 10 mls/hr Q10H IV 01/07/25 17:15 01/08/25 23:12 10 MLS/HR Levofloxacin 50 ml @ 50 mls/hr DAILY IV 01/08/25 10:00 01/09/25 08:26 50 MLS/HR Thiamine HCl 100 mg DAILY IV 01/09/25 10:00 01/09/25 08:26 100 MG Pantoprazole Sodium 40 mg BID IV 01/08/25 22:00 01/09/25 08:24 40 MG Albumin Human 100 ml @ 100 mls/hr Q8H IV 01/09/25 12:30 01/10/25 05:29 01/09/25 13:12 100 MLS/HR Bumetanide 2 mg BIDD IV 01/09/25 18:00 Lactulose 15 ml DAILY PO 01/10/25 10:00 Examination General: Patient alert and oriented in person, place and time. Patient following commands. HEENT: Normocephalic, atraumatic, moist mucous membranes, bleeding gums, Jaundice Respiratory/pulmonary: Clear lungs bilaterally, vesicular murmurs present in almost all lung cerrato, no associated crackles or wheezes. Cardiovascular: Normal heart sounds S1 and S2 with no associated murmurs Abdomen: Epigastric abdominal pain, obese abdomen, fluid present in abdomen Extremities: 4+ bilateral pitting edema Peripheral Pulses: 3+ Radial (R). 3+ Radial (L). 3+ Dorsalis pedis (R). 3+ Dorsalis pedis(L) Skin: No rashes or pruritus, there is no sacral edema present at this time. Neurological: Intact cranial nerves with no focal neurologic deficits Rectal exam was performed with product scientist, no anal tags, anal fissures, fistulas noted , had a good Sphincter tone, no blood was noted on removal, no masses were palpable Vaginal exam was performed with product scientist, no vaginal bleeding noted, white mucus discharge seen laboratory and microbiology Laboratory Tests 01/09/25 04:20 Test 01/09/25 04:20 Range/Units Serum Glucose 135 H 74-106 mg/dL Microbiology Date/Time Source Procedure Growth Status 01/08/25 15:00 Ascities Fluid Gram Stain - Final Resulted 01/08/25 15:00 Ascities Fluid Body Fluid Culture - Preliminary Resulted Problem List/Assessment/Plan Problem List/Assessment/Plan # Acute on chronic Decompensated Liver Failure with Ascites likely secondary to alcoholic liver disease # Acute Upper GI Bleed with Melena likely variceal vs. portal hypertensive gastropathy- # Acute blood loss Symptomatic Anemia ? secondary to GI bleeding currently 4th PRBC and FFP # ? multiple hepatic masses- evident CT abdomen pelvis - USG- [id number] volume ascites in all 4 quadrants. - IR consult done - Ultrasound-guided paracentesis 2.6L removed with no immediate complications, - ascitic fluid WBC- pH 8.0, [id number], RBC 3308, fluid glucose 106, total protein 3.1 - CT abd/pel showed Cirrhotic morphology appearance of the liver and moderate volume ascites fluid. Innumerable hepatic hypodense lesions throughout the hepatic parenchyma replacing more than 50% of the liver most consistent with metastatic disease/malignancy. Recommend multiphasic MRI abdomen with and without contrast and oncology consultation. - GI- Possible EGD to be planned in 1-2 days when patient is medically stable, also recommended Metastatic cancer workup, Hold off on EGD and colonoscopy at this time - IV protonix drip Dc'd changed to IV 40 mg BID - Octreotide drip per GI recommendation for variceal bleed prophylaxis - Levaquin for spontaneous bacterial peritonitis (SBP) prophylaxis - started Start given IV albumin 25%Q8 hourly, lactulose 15 mL p.o., - MELD score - 35 with 52% chance of mortality - MDF: 28.7 - Trend LFTs, INR, bilirubin daily - Ammonia level elevated - Avoid hepatotoxic medications - npo for now - Transfuse PRBCs to maintain Hgb >7 g/dL (higher if actively bleeding or unstable) - Monitor for signs of hemodynamic instability - Iron studies, reviewed no iron deficiency - occult blood in stool, pending - on rectal exam, no masses or gross blood seen # Acute Kidney Injury likely hepatorenal syndrome vs. pre-renal azotemia # Acute kidney injury and vasomotor nephropathy in the setting of severe anemia, outpatient medications unknown. # hypervolemic hypotonic hyponatremia possibly secondary to cirrhosis # Anion gap metabolic acidosis secondary to lactic acid - Nephrology consult for evaluation of severe MARSHALL (creatinine 5.48, baseline 0.78), Today increased to 6.52 - Strict I/O, - daily weights - Avoid nephrotoxins - Monitor electrolytes closely - Renal ultrasound Normal sonographic appearance of the kidneys. - nephrology consulted - FeNa score is 0.3 %- Prerenal - stopped IV fluids, given IV albumin 25%Q8 hourly, bumetanide 2 mg IV b.i.d. - Monitor sodium q46h, - Nephrology was consulted and recommended to repeat urine Na / persistently low urine Na more indicative of HRS, continue bumex drip, was given tolvaptan # Uterine Fibroids no bleeding since 11/01- outpatient follow-up # abnormal uterine bleeding - gynecology consulted, recommended # Chronic Alcohol Dependence # Noncompliance - [facility] protocol for withdrawal prevention - Thiamine 100 mg daily, folic acid, multivitamin po daily - Counseling alcohol abstinence for 17 minutes # Gallstones , cholelithiasis- outpatient follow-up # History of miscarriage PUD PPX: Protonix VTE PPX: Patient is bleeding, SCDs Diet NPO Goals of care discussed with the patient for more than 27 minutes: Full code status Case discussed with Dr. Shay Plan discussed with: Patient My Orders My Orders Orders - ROSE MARY BOATENG RESIDENT Procedure Category Date Status Time Obtain Consent For: ORDERS 01/09/25 Transmitted 07:52 Type And Screen BBK 01/09/25 In Process 07:52 Administer Blood RAFAEL 01/09/25 In Process Products 07:52 Obtain Consent For RAFAEL 01/09/25 In Process Anesthesia 07:52 Stool Occult Blood LAB 01/09/25 Logged 07:52 CC Plasma Assessment Blood Product Administration S: 1730 Date of Service: Jan 09, 2025 Billing Provider: RAYRAY SHAY MD Common Visit Codes: [id number] INP/OBS CARE(HIGH) ROSE MARY BOATENG RESIDENT Jan 09, 2025 14:09 RAYRAY SHAY MD Jan 09, 2025 21:26
--- NOTE | 2025-01-09 14:44 | DVHPN2 ---
Progress Note Medical Necessity Reason Pt with a Central, PICC or Fol: No Objective vital signs Vital Sign Date Time Temp Pulse Resp B/P (MAP) Pulse Ox O2 Delivery O2 Flow Rate FiO2 01/09/25 13:24 104/62 01/09/25 13:00 98.3 100 20 90 98.3 01/09/25 08:00 Room Air* 0 21 Total Intake and Output 01/08/25 01/08/25 01/09/25 15:00 23:00 07:00 Intake Total 50 ml 100 ml 1405 ml Output Total 25 ml Balance 50 ml 100 ml 1380 ml medications Current Medications Medications Dose Ordered Sig/Bárbara Route Start Time Stop Time Status Last Admin Dose Admin Ondansetron HCl 4 mg Q4HP PRN IV 01/07/25 17:15 01/07/25 19:24 4 MG Docusate Sodium 100 mg BIDPRN PRN PO 01/07/25 17:15 Morphine Sulfate 2 mg Q4HPRN PRN IV 01/07/25 17:15 01/09/25 08:25 2 MG Nitroglycerin 0.4 mg Q5MINP PRN SL 01/07/25 17:15 Octreotide Acetate 500 mcg/ Sodium Chloride 100 ml @ 10 mls/hr Q10H IV 01/07/25 17:15 01/08/25 23:12 10 MLS/HR Levofloxacin 50 ml @ 50 mls/hr DAILY IV 01/08/25 10:00 01/09/25 08:26 50 MLS/HR Thiamine HCl 100 mg DAILY IV 01/09/25 10:00 01/09/25 08:26 100 MG Pantoprazole Sodium 40 mg BID IV 01/08/25 22:00 01/09/25 08:24 40 MG Albumin Human 100 ml @ 100 mls/hr Q8H IV 01/09/25 12:30 01/10/25 05:29 01/09/25 13:12 100 MLS/HR Lactulose 15 ml DAILY PO 01/10/25 10:00 Bumetanide 25 mg/ Miscellaneous 100 ml @ 4 mls/hr Q24H IV 01/09/25 14:00 laboratory and microbiology Laboratory Tests 01/09/25 04:20 Test 01/09/25 04:20 Range/Units Serum Glucose 135 H 74-106 mg/dL Microbiology Date/Time Source Procedure Growth Status 01/08/25 15:00 Ascities Fluid Gram Stain - Final Resulted 01/08/25 15:00 Ascities Fluid Body Fluid Culture - Preliminary Resulted CC Plasma Assessment Blood Product Administration S: [id number] [address] Jan 09, 2025 14:44
--- NOTE | 2025-01-09 15:00 | DVHPN2 ---
Progress Note - Dictate Date Seen: Jan 09, 2025 Medical Necessity Reason Pt with a Central, PICC or Fol: No Subjective Patient awake and alert, ill-appearing vital signs Vital Sign Date Time Temp Pulse Resp B/P (MAP) Pulse Ox O2 Delivery O2 Flow Rate FiO2 01/09/25 13:24 104/62 01/09/25 13:00 98.3 100 20 90 98.3 01/09/25 08:00 Room Air* 0 21 Total Intake and Output 01/08/25 01/08/25 01/09/25 15:00 23:00 07:00 Intake Total 50 ml 100 ml 1405 ml Output Total 25 ml Balance 50 ml 100 ml 1380 ml medications Current Medications Medications Dose Ordered Sig/Bárbara Route Start Time Stop Time Status Last Admin Dose Admin Ondansetron HCl 4 mg Q4HP PRN IV 01/07/25 17:15 01/07/25 19:24 4 MG Docusate Sodium 100 mg BIDPRN PRN PO 01/07/25 17:15 Morphine Sulfate 2 mg Q4HPRN PRN IV 01/07/25 17:15 01/09/25 08:25 2 MG Nitroglycerin 0.4 mg Q5MINP PRN SL 01/07/25 17:15 Octreotide Acetate 500 mcg/ Sodium Chloride 100 ml @ 10 mls/hr Q10H IV 01/07/25 17:15 01/08/25 23:12 10 MLS/HR Levofloxacin 50 ml @ 50 mls/hr DAILY IV 01/08/25 10:00 01/09/25 08:26 50 MLS/HR Thiamine HCl 100 mg DAILY IV 01/09/25 10:00 01/09/25 08:26 100 MG Pantoprazole Sodium 40 mg BID IV 01/08/25 22:00 01/09/25 08:24 40 MG Albumin Human 100 ml @ 100 mls/hr Q8H IV 01/09/25 12:30 01/10/25 05:29 01/09/25 13:12 100 MLS/HR Lactulose 15 ml DAILY PO 01/10/25 10:00 Bumetanide 25 mg/ Miscellaneous 100 ml @ 4 mls/hr Q24H IV 01/09/25 14:00 objective Gen: nad, jaundice lungs: Diminished breath sounds at the bases cvs: no rub abd: soft , distended ext: + edema laboratory and microbiology Laboratory Tests 01/09/25 04:20 Test 01/09/25 04:20 Range/Units Serum Glucose 135 H 74-106 mg/dL Assessment/Plan IMP: 1) Hemodynamically mediated acute kidney injury and vasomotor nephropathy in the setting of severe anemia, outpatient medications unknown. 2) CKD stage II, baseline creatinine less than one. 3) cirrhosis in the setting of alcohol use disorder 4) multiple hepatic masses 5) severe anemia 6) chronic hyponatremia possibly secondary to non osmotic ADH release in the setting of cirrhosis 7) cirrhosis with ascites REC: - repeat urine Na / persistently low urine Na more indicative of HRS - bumex drip - have requested tolvaptan from pharmacy as a trial Plan discussed with: Patient CC Plasma Assessment Blood Product Administration S: [id number] GRAEME HOUGH MD Jan 09, 2025 15:00
[2025-01-09] MEDS ORDERED: BUMETANIDE 2.5mg/10ml (0.25 mg/ml) INJ IV SCH ×2 (18:00→22:00)
[2025-01-09 19:04] LABS: Potassium 4.6 mmol/L (3.5-5.1)
[2025-01-09 19:05] LABS: Anion Gap 11 (5-15)
[2025-01-09 19:10] LABS: BUN/Creatinine Ratio 5.7 (10.0-20.0)
[2025-01-09 19:14] LABS: Blood Urea Nitrogen 39 mg/dL (9-23); Calcium 8.4 mg/dL (8.7-10.4); Carbon Dioxide 19 mmol/L (20-31); Chloride 93 mmol/L (98-107); Glucose 118 mg/dL (74-106); Sodium 123 mmol/L (136-145)
[2025-01-09] MEDS: BUMETANIDE INJECTION 25 MG in GIVE UN-DILUTED 0 ML IV SCH (22:14)
[2025-01-10] VITALS (9 sets, daily range): BP systolic 96–145; BP diastolic 42–96; PULSE 76–99; RESP 15–20; TEMP 97.1–98.5; O2SAT 93–99
[2025-01-10 07:14] LABS: Hematocrit 21.8 % (36.0-46.0); Hemoglobin 7.3 g/dL (12.2-16.2); Mean Corpuscular Hemoglobin 28.4 pg (28.0-32.0); Mean Corpuscular Volume 84.8 fL (80.0-100.0); Nucleated Red Blood Cells % 0.0 %
[2025-01-10 07:28] LABS: Alanine Aminotransferase 13 U/L (7-40); Alkaline Phosphatase 63 U/L (46-116); Anion Gap 13 (5-15); Calcium 8.8 mg/dL (8.7-10.4); Glucose 101 mg/dL (74-106); Potassium 5.0 mmol/L (3.5-5.1)
[2025-01-10 07:29] LABS: Albumin 3.9 g/dL (3.2-4.8)
[2025-01-10 07:37] LABS: BUN/Creatinine Ratio 5.3 (10.0-20.0); Bilirubin, Total 9.7 mg/dL (0.2-1.0); Blood Urea Nitrogen 38 mg/dL (9-23); Carbon Dioxide 17 mmol/L (20-31); Chloride 93 mmol/L (98-107); Sodium 123 mmol/L (136-145); Total Protein 7.7 g/dL (5.7-8.2)
[2025-01-10] MEDS: LACTULOSE 20Gm/30ML SOLN PO SCH (10:15)
--- NOTE | 2025-01-10 10:24 | PRN ---
Misceleneous Note Note Note January 10, 2025 Subjective, no significant changes Current Medications Medications (Trade) Dose Ordered Sig/Bárbara Route PRN Reason Start Time Stop Time Status Last Admin Bumetanide 25 mg/ Miscellaneous 100 ml @ 4 mls/hr Q24H IV 01/09/25 12:00 01/09/25 13:01 DC Albumin Human 100 ml @ 100 mls/hr Q8H IV 01/09/25 12:30 01/10/25 05:29 DC 01/10/25 04:32 Bumetanide (Bumex Injection) 2 mg BID IV 01/09/25 22:00 01/09/25 12:52 DC Bumetanide (Bumex Injection) 2 mg BIDD IV 01/09/25 18:00 01/09/25 14:04 DC Lactulose 15 ml DAILY PO 01/10/25 10:00 Bumetanide 25 mg/ Miscellaneous 100 ml @ 4 mls/hr Q24H IV 01/09/25 14:00 01/09/25 22:14 Tolvaptan (Samsca) 30 mg DAILY PO 01/10/25 10:00 Vital Signs Date Time Temp Pulse Resp B/P (MAP) Pulse Ox O2 Delivery O2 Flow Rate FiO2 01/10/25 05:00 98.2 98 17 120/96 (104) 95 98.2 01/09/25 20:30 Room Air* 2 N/A Nasal Cannula* General: Chronically ill-appearing, HEENT: NC/AT EOMI PERRLA O/P clear, no JVD or cervical lymphadenopathy, scleral icterus is present Heart: Regular rate and rhythm, Abdomen: Soft, distended and tender to palpation ounds Extremity: No clubbing cyanosis, lower extremity edema is present Neuro: Cranial nerves 2-12 grossly intact, moves all four extremities, no asterixis Impression: 1. Cirrhosis, hepatorenal syndrome 2. Ascites 3. Numerous lesions in the liver suspicious for metastatic disease 4. Pelvic mass 5. Anemia 6. History of alcohol abuse 7. Jaundice Recommendations: 1. Metastatic cancer workup 2. Patient would benefit from transfer to tertiary center 3. Continue with supportive care 4. Hold off on endoscopy and colonoscopy 5. Follow H&H and transfuse NOLAN LOPEZ MD Jan 10, 2025 10:24
[2025-01-10] MEDS: TOLVAPTAN 30 MG TAB PO SCH (10:55)
[2025-01-10] MEDS: BUMETANIDE 2.5mg/10ml (0.25 mg/ml) INJ IV SCH (11:00)
--- NOTE | 2025-01-10 11:28 | DVHPN2 ---
Progress Note - Dictate Date Seen: Jan 10, 2025 Medical Necessity Reason Pt with a Central, PICC or Fol: No Subjective Patient awake and alert this morning, patient's significant other Wu at bedside. Patient's RN at bedside. vital signs Vital Sign Date Time Temp Pulse Resp B/P (MAP) Pulse Ox O2 Delivery O2 Flow Rate FiO2 01/10/25 11:00 116/58 01/10/25 09:00 97.8 97 20 99 97.8 01/09/25 20:30 Room Air* 2 N/A Nasal Cannula* Total Intake and Output 01/09/25 01/09/25 01/10/25 15:00 23:00 07:00 Intake Total 50 ml 300 ml 184 ml Output Total 130 ml 200 ml Balance 50 ml 170 ml -16 ml medications Current Medications Medications Dose Ordered Sig/Bárbara Route Start Time Stop Time Status Last Admin Dose Admin Ondansetron HCl 4 mg Q4HP PRN IV 01/07/25 17:15 01/07/25 19:24 4 MG Docusate Sodium 100 mg BIDPRN PRN PO 01/07/25 17:15 Morphine Sulfate 2 mg Q4HPRN PRN IV 01/07/25 17:15 01/09/25 08:25 2 MG Nitroglycerin 0.4 mg Q5MINP PRN SL 01/07/25 17:15 Octreotide Acetate 500 mcg/ Sodium Chloride 100 ml @ 10 mls/hr Q10H IV 01/07/25 17:15 01/10/25 01:03 10 MLS/HR Levofloxacin 50 ml @ 50 mls/hr DAILY IV 01/08/25 10:00 01/09/25 08:26 50 MLS/HR Thiamine HCl 100 mg DAILY IV 01/09/25 10:00 01/10/25 10:15 100 MG Pantoprazole Sodium 40 mg BID IV 01/08/25 22:00 01/10/25 10:15 40 MG Lactulose 15 ml DAILY PO 01/10/25 10:00 01/10/25 10:15 15 ML Tolvaptan 30 mg DAILY PO 01/10/25 10:00 01/10/25 10:55 30 MG Bumetanide 2 mg Q6HR IV 01/10/25 10:30 01/10/25 11:00 2 MG objective Gen: nad, jaundice lungs: Diminished breath sounds at the bases cvs: no rub abd: soft , distended ext: + edema laboratory and microbiology Laboratory Tests 01/10/25 06:07 Test 01/10/25 06:07 Range/Units Serum Glucose 101 74-106 mg/dL Assessment/Plan IMP: 1) Hemodynamically mediated acute kidney injury and vasomotor nephropathy in the setting of severe anemia, outpatient medications unknown. 2) CKD stage II, baseline creatinine less than one. 3) cirrhosis in the setting of alcohol use disorder 4) multiple hepatic masses 5) severe anemia 6) chronic hyponatremia possibly secondary to non osmotic ADH release in the setting of cirrhosis 7) cirrhosis with ascites REC: - poor efficacy with diuretics and also with V2 receptor antagonist. Suspect Very low GFR as etiology for poor response. - discussed hemodialysis for solute, volume removal. Discussed possibility of hepatorenal Syndrome as a potential consideration for current etiology of acute kidney injury. Patient Expressed understanding and agreed to proceed with dialysis as needed. - we will request tunneled dialysis catheter placement from IR. Dietary Evaluation Review Comments: 1) Continue thiamin supplementation. Consider adding folic acid and multivitamin. 2) Encourage optimal PO intake 3) Advance to 2g Na 80g hepatic diet when medically feasible 4) Refer to outpatient RD for weight management 5) Follow-up with hepatology, gastroenterology, and nephrology 6) Follow-up with social work job titles r/t ETOH dependency 7) Continue to monitor I&O, labs, and skin integrity Expected Outcomes/Goals: 1) appetite and labs to improve 2) GI symptoms to resolve 3) diet to advance 4) f/u in 3-5 days Plan discussed with: Patient, Spouse CC Plasma Assessment Blood Product Administration S: [id number] GRAEME HOUGH MD Jan 10, 2025 11:28
--- NOTE | 2025-01-10 13:11 | DVH ---
CHEST RADIOGRAPH Indication: patient on oxygen Technique: Single frontal view of the chest was obtained Comparison: XY CHEST PORTABLE on DOS: 08/24/24, XY CHEST PORTABLE on DOS: 06/16/24, XY CHEST PORTABLE on DOS: 06/13/24 FINDINGS: Lines and Tubes: None Lungs: No focal consolidation. Pleura: No effusion. No pneumothorax. Cardiomediastinal contours: cardiomegaly Bones: No acute osseous abnormality. IMPRESSION: Cardiomegaly with chf
--- NOTE | 2025-01-10 17:28 | DVHPNRES ---
Progress Note Date Seen: Jan 10, 2025 Resident Creating Document: LUDY GONZALEZ RESIDENT Medical Necessity Reason Pt with a Central, PICC or Fol: No Subjective Review of Systems Patient is a 38-year-old female with past medical history of chronic severe anemia which required blood transfusions via before in June on August, uterine fibroids, chronic liver ascites who came to the ED with chief complaint of severe diffuse abdominal pain 8/10 in intensity, which radiates to the back, gradual increase in shortness of breath, and nausea since the past week. She complained of severe bloating and abdominal swelling since last Saturday, dry mouth, dry cough, dizziness, and bilateral leg pain due to edema. but he denies any hematemesis, headaches, diarrhea, dysuria, hematuria, but she complains her stool is darker than usual. Patient was supposed to follow-up with OBGYN for possible hysterectomy but did not. She states that she had no prior diagnosis of cirrhosis but was told during her June 2024 admission that she had liver and kidney damage. 01/08/25 Patient seen at bedside. Patient is alert x3, in moderate distress, has shortness of breath, the associated with nausea, dizziness, diffuse lower abdominal tenderness and bloating. She said that she feels bloated since last Saturday and her stool appears dark brown, soft but she denies any hematemesis, hematuria, vaginal bleeding. She also complains of dry cough, a dry mouth Patient states that her last drink was last . Patient also had bleeding in her mouth. Patient is able to pass gas, had a bowel movement, is making urine. Patient has 4+ bilateral pitting edema to the thighs. Rectal exam was done and showed no stool or blood, vaginal exam was done and showed no bleeding from the vagina. Patient denies having any vaginal bleeding Since October, her periods are irregular. CT abdomen shows Innumerable hepatic hypodense lesions throughout the hepatic parenchyma replacing more than 50% of the liver most consistent with metastatic disease/malignancy. GI, OBGYN, nephrology was consulted. Paracentesis done by IR 2.6 L was drained. 01/09/25 Patient seen at bedside. Patient is alert x3, in moderate distress, has shortness of breath and complained of dizziness, nausea, epigastric pain, states that it was hard to sleep at night, has tremors in her hands and pins and needle sensation in both feet. Her creatinine has increased from 5.48 to 6.52. Nephrology was consulted and recommended- repeat urine Na / persistently low urine Na more indicative of HRS, and continue bumex drip. Another unit of PRBC was ordered. HB is 6.5, platelets 89. Patient has minimal put 50 mL in 12 hours. Patient still has 4+ pitting edema to the pelvis. GI is on board and recommended Metastatic cancer workup, Hold off on EGD and colonoscopy at this time. Ascitic fluid shows ascitic fluid WBC- pH 8.0, [id number], RBC 3308, fluid glucose 106, total protein 3.1. Patient is stopped IV fluids, given IV albumin 25% Q8 hourly, Bumex drip. 01/10/2025: Patient was seen by me today. Patient is alert x3, in moderate distress. Overnight events were reviewed. Patient is reports having 2 episodes of soft stool, passing gas but complains that her abdomen has become irritable and on movement she has shortness of breath. she also says that she had vaginal bleeding since yesterday night which she assumes is a periods. Because of irritable abdomen she says that she had breakfast unable to take lunch and dinner. Today nephrology consult was done suggested as below - poor efficacy with diuretics and also with V2 receptor antagonist. Suspect Very low GFR as etiology for poor response. - discussed hemodialysis for solute, volume removal. Discussed possibility of hepatorenal Syndrome as a potential consideration for current etiology of acute kidney injury. Patient Expressed understanding and agreed to proceed with dialysis as needed. - we will request tunneled dialysis catheter placement from IR. IR consult is pending. We have also consulted director social service as patient requires biopsy for liver masses, possible ovarian mass which could have metastatic to the liver needs an oncology Consult with biopsy. Objective vital signs Vital Sign Date Time Temp Pulse Resp B/P (MAP) Pulse Ox O2 Delivery O2 Flow Rate FiO2 01/10/25 13:00 97.5 98 20 103/42 (62) 97 97.5 01/10/25 08:00 Room Air* 0 21 Total Intake and Output 01/09/25 01/09/25 01/10/25 15:00 23:00 07:00 Intake Total 50 ml 300 ml 184 ml Output Total 130 ml 200 ml Balance 50 ml 170 ml -16 ml medications Current Medications Medications Dose Ordered Sig/Bárbara Route Start Time Stop Time Status Last Admin Dose Admin Ondansetron HCl 4 mg Q4HP PRN IV 01/07/25 17:15 01/07/25 19:24 4 MG Docusate Sodium 100 mg BIDPRN PRN PO 01/07/25 17:15 Morphine Sulfate 2 mg Q4HPRN PRN IV 01/07/25 17:15 01/09/25 08:25 2 MG Nitroglycerin 0.4 mg Q5MINP PRN SL 01/07/25 17:15 Octreotide Acetate 500 mcg/ Sodium Chloride 100 ml @ 10 mls/hr Q10H IV 01/07/25 17:15 01/10/25 12:58 10 MLS/HR Levofloxacin 50 ml @ 50 mls/hr DAILY IV 01/08/25 10:00 01/10/25 13:00 50 MLS/HR Thiamine HCl 100 mg DAILY IV 01/09/25 10:00 01/10/25 10:15 100 MG Pantoprazole Sodium 40 mg BID IV 01/08/25 22:00 01/10/25 10:15 40 MG Lactulose 15 ml DAILY PO 01/10/25 10:00 01/10/25 10:15 15 ML Tolvaptan 30 mg DAILY PO 01/10/25 10:00 01/10/25 10:55 30 MG Bumetanide 2 mg Q6HR IV 01/10/25 10:30 01/10/25 11:00 2 MG Examination General: Patient alert and oriented in person, place and time. Patient following commands. HEENT: Normocephalic, atraumatic, moist mucous membranes, bleeding gums, Jaundice Respiratory/pulmonary: Clear lungs bilaterally, vesicular murmurs present in almost all lung cerrato, no associated crackles or wheezes. Cardiovascular: Normal heart sounds S1 and S2 with no associated murmurs Abdomen: Epigastric abdominal pain, obese abdomen, tense abdomen Extremities: 4+ bilateral pitting edema Peripheral Pulses: 3+ Radial (R). 3+ Radial (L). 3+ Dorsalis pedis (R). 3+ Dorsalis pedis(L) Skin: No rashes or pruritus, there is no sacral edema present at this time. Neurological: Intact cranial nerves with no focal neurologic deficits laboratory and microbiology Laboratory Tests 01/10/25 06:07 Test 01/10/25 06:07 Range/Units Serum Glucose 101 74-106 mg/dL Microbiology Date/Time Source Procedure Growth Status 01/08/25 15:00 Ascities Fluid Gram Stain - Final Resulted 01/08/25 15:00 Ascities Fluid Body Fluid Culture - Preliminary Resulted Labs and/or images reviewed: Labs reviewed by me, Image(s) reviewed by me Problem List/Assessment/Plan Problem List/Assessment/Plan # Acute on chronic Decompensated Liver Failure with Ascites likely secondary to alcoholic liver disease # Acute Upper GI Bleed with Melena likely variceal vs. portal hypertensive gastropathy- # Acute blood loss Symptomatic Anemia ? secondary to GI bleeding currently 4th PRBC and FFP # ? multiple hepatic masses- evident CT abdomen pelvis - USG- [id number] volume ascites in all 4 quadrants. - IR consult done - Ultrasound-guided paracentesis 2.6L removed with no immediate complications, - ascitic fluid WBC- pH 8.0, [id number], RBC 3308, fluid glucose 106, total protein 3.1 - CT abd/pel showed Cirrhotic morphology appearance of the liver and moderate volume ascites fluid. Innumerable hepatic hypodense lesions throughout the hepatic parenchyma replacing more than 50% of the liver most consistent with metastatic disease/malignancy. Recommend multiphasic MRI abdomen with and without contrast and oncology consultation. - GI- Possible EGD to be planned in 1-2 days when patient is medically stable, also recommended Metastatic cancer workup, Hold off on EGD and colonoscopy at this time - IV protonix drip Dc'd changed to IV 40 mg BID - Octreotide drip per GI recommendation for variceal bleed prophylaxis - Levaquin for spontaneous bacterial peritonitis (SBP) prophylaxis - started Start given IV albumin 25%Q8 hourly, lactulose 15 mL p.o., - MELD score - 35 with 52% chance of mortality - MDF: 28.7 - Trend LFTs, INR, bilirubin daily - Ammonia level elevated - Avoid hepatotoxic medications - npo for now - Transfuse PRBCs to maintain Hgb >7 g/dL (higher if actively bleeding or unstable) - Monitor for signs of hemodynamic instability - Iron studies, reviewed no iron deficiency - occult blood in stool, positive - on rectal exam, no masses or gross blood seen # Acute Kidney Injury likely hepatorenal syndrome vs. pre-renal azotemia # Acute kidney injury and vasomotor nephropathy in the setting of severe anemia, outpatient medications unknown. # hypervolemic hypotonic hyponatremia possibly secondary to cirrhosis # Anion gap metabolic acidosis secondary to lactic acid - Nephrology consult for evaluation of severe MARSHALL (creatinine 5.48, baseline 0.78), Today increased to 6.52 - Strict I/O, - daily weights - Avoid nephrotoxins - Monitor electrolytes closely - Renal ultrasound Normal sonographic appearance of the kidneys. - nephrology consulted - FeNa score is 0.3 %- Prerenal - stopped IV fluids, given IV albumin 25%Q8 hourly, bumetanide 2 mg IV b.i.d. - Monitor sodium q46h, - Nephrology was consulted and recommended to repeat urine Na / persistently low urine Na more indicative of HRS, continue bumex drip, was given tolvaptan Nephrology consulted on 01/10/25 suggested: - poor efficacy with diuretics and also with V2 receptor antagonist. Suspect Very low GFR as etiology for poor response. - discussed hemodialysis for solute, volume removal. Discussed possibility of hepatorenal Syndrome as a potential consideration for current etiology of acute kidney injury. Patient Expressed understanding and agreed to proceed with dialysis as needed. - we will request tunneled dialysis catheter placement from IR. - radial consult placed, pending - cargo and ramp services manager consulted for HLOC # Uterine Fibroids no bleeding since 11/01- outpatient follow-up # abnormal uterine bleeding - gynecology consulted, recommended # Chronic Alcohol Dependence # Noncompliance - [facility] protocol for withdrawal prevention - Thiamine 100 mg daily, folic acid, multivitamin po daily - Counseling alcohol abstinence for 17 minutes # Gallstones , cholelithiasis- outpatient follow-up # History of miscarriage PUD PPX: Protonix VTE PPX: Patient is bleeding, SCDs Diet NPO Goals of care discussed with the patient for more than 27 minutes: Full code status Case discussed with Dr. Shay Plan discussed with: Patient, Other (rn) My Orders My Orders Orders - LUDY GONZALEZ RESIDENT Procedure Category Date Status Time * Aggregate Conveyor Operator CONS 01/10/25 Transmitted Consult Dietary Evaluation Review Comments: 1) Continue thiamin supplementation. Consider adding folic acid and multivitamin. 2) Encourage optimal PO intake 3) Advance to 2g Na 80g hepatic diet when medically feasible 4) Refer to outpatient RD for weight management 5) Follow-up with hepatology, gastroenterology, and nephrology 6) Follow-up with sr. social media & mobile manager r/t ETOH dependency 7) Continue to monitor I&O, labs, and skin integrity Expected Outcomes/Goals: 1) appetite and labs to improve 2) GI symptoms to resolve 3) diet to advance 4) f/u in 3-5 days CC Plasma Assessment Blood Product Administration S: [id number] Date of Service: Jan 10, 2025 Billing Provider: RAYRAY SHAY MD Common Visit Codes: [id number] INP/OBS CARE(HIGH) LUDY GONZALEZ RESIDENT Jan 10, 2025 17:28 RAYRAY SHAY MD Jan 10, 2025 21:47
[2025-01-10 19:23] LABS: INR 1.77 (0.9-1.15); Prothrombin Time 17.7 sec (9.3-11.8)
--- NOTE | 2025-01-10 19:51 | DVH ---
MRI Abdomen and pelvis, without IV Contrast Exam Date: 01/10/2025 04:50 PM Comparison: CT CT AB PEL WO CON-NO ORAL OR IV on DOS: 01/08/25, US ABDOMEN LIMITED on DOS: 01/07/25, US PELVIC on DOS: 08/25/24 History: Pain Technique: Multisequence multiplanar MRI images were obtained of the abomen and pelvis. Findings/impression: Extremely limited examination as patient was unable to tolerate examination. Limited T2 views are available for interpretation. There is diffuse severe body wall edema ; possibly cellulitis and panniculitis. Small volume pelvic ascites. Torres catheter in the urinary bladder. 4.9 cm T2 hypointense structure in the posterior right hemipelvis. This may represent an exophytic fi broid versus possible endometrioma. Clinical correlation advised.
[2025-01-11] VITALS (31 sets, daily range): BP systolic 88–114; BP diastolic 34–62; PULSE 72–165; RESP 11–24; TEMP 97.9–99; O2SAT 92–100
[2025-01-11] MEDS: MIDODRINE HCL 10 MG TAB PO ONE (08:32)
[2025-01-11 10:06] LABS: Hematocrit 21.9 % (36.0-46.0); Hemoglobin 7.3 g/dL (12.2-16.2); Mean Corpuscular Hemoglobin 28.6 pg (28.0-32.0); Mean Corpuscular Volume 85.2 fL (80.0-100.0)
[2025-01-11 10:09] LABS: Potassium 4.9 mmol/L (3.5-5.1)
[2025-01-11 10:10] LABS: Anion Gap 13 (5-15)
[2025-01-11 10:11] LABS: Calcium 8.5 mg/dL (8.7-10.4); Carbon Dioxide 19 mmol/L (20-31); Chloride 93 mmol/L (98-107); Sodium 125 mmol/L (136-145)
[2025-01-11 10:44] LABS: Magnesium 2.0 mg/dL (1.6-2.6)
[2025-01-11 10:57] LABS: BUN/Creatinine Ratio 6.2 (10.0-20.0)
--- NOTE | 2025-01-11 11:01 | DVHPN2 ---
Progress Note Date Seen: Jan 11, 2025 Medical Necessity Reason Pt with a Central, PICC or Fol: Yes The following are medically ne: Torres Catheter Subjective Changes from previous H/P or p: No Changes Objective vital signs Vital Sign Date Time Temp Pulse Resp B/P (MAP) Pulse Ox O2 Delivery O2 Flow Rate FiO2 01/11/25 07:00 95 20 103/58 (73) 95 01/11/25 05:00 99.0 99.0 01/10/25 19:30 Nasal Cannula* 2 28 Total Intake and Output 01/10/25 01/10/25 01/11/25 15:00 23:00 07:00 Intake Total 286 ml 160 ml 260 ml Output Total 150 ml 150 ml Balance 286 ml 10 ml 110 ml medications Current Medications Medications Dose Ordered Sig/Bárbara Route Start Time Stop Time Status Last Admin Dose Admin Ondansetron HCl 4 mg Q4HP PRN IV 01/07/25 17:15 01/07/25 19:24 4 MG Docusate Sodium 100 mg BIDPRN PRN PO 01/07/25 17:15 Morphine Sulfate 2 mg Q4HPRN PRN IV 01/07/25 17:15 01/09/25 08:25 2 MG Nitroglycerin 0.4 mg Q5MINP PRN SL 01/07/25 17:15 Octreotide Acetate 500 mcg/ Sodium Chloride 100 ml @ 10 mls/hr Q10H IV 01/07/25 17:15 01/11/25 06:41 10 MLS/HR Levofloxacin 50 ml @ 50 mls/hr DAILY IV 01/08/25 10:00 01/11/25 10:21 50 MLS/HR Thiamine HCl 100 mg DAILY IV 01/09/25 10:00 01/11/25 10:21 100 MG Pantoprazole Sodium 40 mg BID IV 01/08/25 22:00 01/11/25 10:21 40 MG Lactulose 15 ml DAILY PO 01/10/25 10:00 01/11/25 10:20 15 ML Tolvaptan 30 mg DAILY PO 01/10/25 10:00 01/10/25 10:55 30 MG Bumetanide 2 mg Q6HR IV 01/10/25 10:30 01/11/25 05:47 2 MG Midodrine 10 mg TID@0600,1200,1800 PO 01/11/25 12:00 Metolazone 15 mg DAILY PO 01/11/25 11:00 UNV Examination: GENERAL:Abnormal, LUNGS:Abnormal, ABDOMEN:Abnormal, SKIN:Abnormal laboratory and microbiology Laboratory Tests 01/11/25 09:30 Test 01/11/25 09:30 Range/Units Serum Glucose Pending Microbiology Date/Time Source Procedure Growth Status 01/08/25 15:00 Ascities Fluid Gram Stain - Final Resulted 01/08/25 15:00 Ascities Fluid Body Fluid Culture - Preliminary Resulted Problem List/Assessment/Plan Problem List/Assessment/Plan 39 year female PMH etoh abuse p/w weakness Acute kidney injury hepatorenal syndrome vs hemodyanmic ckd II etoh cirrhosis, liver masses severe anasarca and ascites anemia due to liver disease hyponatremia due to volume overload severe anasarca rec 1 unit PRBC to keep hb > 8.0 triple diuretics- tolvaptan, bumex and metolazone monitor UOP fluid restriction patient and family aware of intention to start dialysis once TC is placed midodrine po to keep map> 65 levophed PRN if unable to maintain while diuresis poor overall prognosis Plan discussed with: Patient, Spouse My Orders My Orders Orders - EDMOND MAS MD Procedure Category Date Status Time Osmolality Urine LAB 01/11/25 Logged 10:49 Metolazone (Zaroxolyn) PHA 01/11/25 Logged 11:00 Dietary Evaluation Review Comments: 1) Continue thiamin supplementation. Consider adding folic acid and multivitamin. 2) Encourage optimal PO intake 3) Advance to 2g Na 80g hepatic diet when medically feasible 4) Refer to outpatient RD for weight management 5) Follow-up with hepatology, gastroenterology, and nephrology 6) Follow-up with social media manager r/t ETOH dependency 7) Continue to monitor I&O, labs, and skin integrity Expected Outcomes/Goals: 1) appetite and labs to improve 2) GI symptoms to resolve 3) diet to advance 4) f/u in 3-5 days Critical Care Time (mins): 35 CC Plasma Assessment Blood Product Administration S: [id number] EDMOND MAS MD Jan 11, 2025 11:01
[2025-01-11 11:12] LABS: Total Cells Counted 100.0 (100)
[2025-01-11 11:13] LABS: Blood Urea Nitrogen 48 mg/dL (9-23); Glucose 108 mg/dL (74-106)
[2025-01-11] MEDS: MIDODRINE HCL 10 MG TAB PO SCH (12:07)
--- NOTE | 2025-01-11 12:49 | DVHPN2 ---
Subjective No significant changes Changes from previous H/P or p: No Changes Eyes: No Pain, No Vision change, No Conjunctivae inflammation, No Eyelid inflammation, No Other, No Redness ENT: No Ear pain, No Ear discharge, No Nose pain, No Nose discharge, No Nose congestion, No Mouth pain, No Mouth swelling, No Throat pain, No Throat swelling, No Other Cardiovascular: No Chest Pain, No Palpitations, No Orthopnea, No Paroxysmal Noc. Dyspnea; Edema; No Lt Headedness, No Other Respiratory: No Cough, No Dry, No Shortness of breath, No SOB with excertion, No Wheezing, No Hemoptysis, No Pleuritic Pain, No Sputum, No Other Gastrointestinal: Nausea; No Vomiting; Abdominal Pain; No Diarrhea, No Constipation; Melena; No Hematochezia, No Other Genitourinary: No Dysuria, No Frequency, No Incontinence, No Hematuria, No Retention, No Other Musculoskeletal: No other, No neck pain, No shoulder pain, No arm pain, No back pain, No hand pain, No leg pain, No foot pain Skin: No Rash, No Lesions, No Jaundice, No Bruising, No Other Objective Vitals Vital Signs Date Time Temp Pulse Resp B/P (MAP) Pulse Ox O2 Delivery O2 Flow Rate FiO2 01/11/25 12:07 103/48 01/11/25 07:00 95 20 95 01/11/25 05:00 99.0 99.0 01/10/25 19:30 Nasal Cannula* 2 28 Intake/Output Intake and Output 01/11/25 07:00 Intake Total 706 ml Output Total 300 ml Balance 406 ml Intake Oral 536 ml IV Total 170 ml Output Urine Total 300 ml General Appearance: Alert, Oriented X3, Cooperative, No acute distress, mild distress, moderate distress, severe distress, Other Lungs: Clear to auscultation, Normal air movement, Other Cardiovascular: Regular rate, Normal S1, Normal S2, No murmurs, Gallops, Rubs, Other Abdomen: Normal bowel sounds, Soft, No tenderness, No hepatospenomegaly, No masses, Other (Slight distention and generalized tenderness) Medications Current Medications Medications Dose Ordered Sig/Bárbara Route Start Time Stop Time Status Last Admin Dose Admin Ondansetron HCl 4 mg Q4HP PRN IV 01/07/25 17:15 01/07/25 19:24 4 MG Docusate Sodium 100 mg BIDPRN PRN PO 01/07/25 17:15 Morphine Sulfate 2 mg Q4HPRN PRN IV 01/07/25 17:15 01/09/25 08:25 2 MG Nitroglycerin 0.4 mg Q5MINP PRN SL 01/07/25 17:15 Octreotide Acetate 500 mcg/ Sodium Chloride 100 ml @ 10 mls/hr Q10H IV 01/07/25 17:15 01/11/25 06:41 10 MLS/HR Levofloxacin 50 ml @ 50 mls/hr DAILY IV 01/08/25 10:00 01/11/25 10:21 50 MLS/HR Thiamine HCl 100 mg DAILY IV 01/09/25 10:00 01/11/25 10:21 100 MG Pantoprazole Sodium 40 mg BID IV 01/08/25 22:00 01/11/25 10:21 40 MG Lactulose 15 ml DAILY PO 01/10/25 10:00 01/11/25 10:20 15 ML Tolvaptan 30 mg DAILY PO 01/10/25 10:00 01/11/25 10:55 30 MG Bumetanide 2 mg Q6HR IV 01/10/25 10:30 01/11/25 05:47 2 MG Midodrine 10 mg TID@0600,1200,1800 PO 01/11/25 12:00 01/11/25 12:07 10 MG Metolazone 15 mg DAILY PO 01/11/25 11:00 01/11/25 12:07 15 MG Dopamine HCl/ Dextrose 250 ml @ 9.548 mls/ hr Q24H IV 01/11/25 12:30 UNV Laboratory Results Laboratory Tests 01/11/25 09:30 Chemistry Test 01/11/25 09:30 01/11/25 09:37 Calcium Level 8.5 mg/dL (8.7-10.4) L Magnesium Level 2.0 mg/dL (1.6-2.6) Phosphorus Level 6.1 mg/dL (2.4-5.1) H Coagulation Test 01/10/25 18:57 Prothrombin Time 17.7 sec (9.3-11.8) H Prothrombin Time INR 1.77 (0.9-1.15) H Urinalysis Test 01/08/25 16:30 01/09/25 21:52 01/11/25 10:55 Urine Color Yellow (Yellow) Urine Clarity Turbid (Clear) H Urine pH 5.5 (5.0-9.0) Urine Specific [place] 1.014 (1.001-1.035) Urine Protein 2+ (Negative) H Urine Ketones Negative (Negative) Urine Blood Negative /uL (Negative) Urine Nitrite Negative (Negative) Urine Bilirubin 1+ (Negative) H Urine Urobilinogen 2 mg/dL (Negative) H Urine Leukocyte Esterase Negative /uL (Negative) Urine RBC 2 /hpf (0 - 4) Urine Microscopic WBC 3 /HPF (0-5) Urine Squamous Epithelial Cells Few /hpf (<5) Urine Amorphous Crystals Mod /hpf (None Seen) Urine Bacteria Few /hpf (None Seen) H Urine Protein/Creatinine Ratio 0.96 Urine Glucose Normal mg/dL (Normal) Urine Total Protein 232.7 mg/dL (1-14) H Urine Creatinine 180.93 mg/dL (30.0-125.0) H Urine Sodium 27 mmol/L (40-220) L Urine Osmolality 225 mOsm/kg Microbiology Microbiology Date/Time Source Procedure Growth Status 01/08/25 15:00 Ascities Fluid Gram Stain - Final Resulted 01/08/25 15:00 Ascities Fluid Body Fluid Culture - Preliminary Resulted Labs and/or images reviewed: Labs reviewed by me, Image(s) reviewed by me Assessment/Plan Assessment/Plan Cirrhosis Ascites Hepatorenal syndrome Multiple lesions in the liver suspicious for metastatic disease Pelvic mass Severe anemia History of alcohol abuse Plan Discussed with Dr. Mcnair Patient in the process of being transferred to higher level of care Continue current supportive care Monitor labs We will continue to follow patient Plan discussed with: Patient, Spouse Date of Service: Jan 11, 2025 Billing Provider: LINUS PARIKH Common Visit Codes: [id number] INP/OBS CARE(HIGH) LINUS PARIKH Jan 11, 2025 12:49
[2025-01-11] MEDS: DOPamine 1600MCG/ML D5W 250 ML IV SCH (13:07)
--- NOTE | 2025-01-11 14:57 | DVH ---
XY Insertion of Venous Cath, HISTORY: HD CATH PROCEDURE: Informed consent was obtained. The patient was placed supine on the interventional table. A limited localization ultrasound of the right neck base was obtained. The right neck base and upper chest were prepped with chlorhexidine which was allowed to dry and draped in the usual sterile fashio n. Time out was performed. IV sedation was administered. The skin and the soft tissues were infiltrat ed with 1% Lidocaine. With real-time ultrasound guidance, the internal jugular vein was accessed with a micropuncture kit, and an image documenting patency was recorded to PACS. A subcutaneous tunneled tract was created from the right upper chest to the venotomy site. A 14.5 [place], 19 cm lo ng hemodialysis catheter was advanced through the tunneled tract. Fluoroscopy was used to advance a guidewire through the internal jugular vein into the inferior vena cava. Following serial dilatation, a 15 [place] peel-away sheath was introduced, though which was adva nced the catheter into the right atrium. The catheter tip position was confirmed with fluoroscopy. Th ere was satisfactory flow in both lumens. The catheter lumens were flushed with saline and heparin wa s left indwelling in the catheter. A post-procedure image of the chest was obtained. The neck incisio n site was closed with a Dermabond and dressed sterilely. The catheter was sutured at the skin surfac e and exit site also dressed sterilely. No immediate complication was identified. DAP 90 FLUOROSCOPY TIME: 1.1 minutes. SEDATION: Dr. Sandie Simon was personally responsible for the administration of moderate sedation during the procedure performed, including the use of an independent trained observer who had no other duties during the procedure. The drugs utilized were IV fentanyl and versed (see nursing log for details). The total time of supervision by the attending physician was approximately 30 minutes. FINDINGS: Widely patent right IJV. Post procedure image demonstrates smooth course of the hemodialysi s catheter with the tip in the right atrium. IMPRESSION: Placement of 14.5 [place] [address], 19 cm long hemodialysis catheter through right internal jugular vein. Plan: Please contact IR for removal when no longer needed.
--- NOTE | 2025-01-11 15:38 | DVHPNRES ---
Progress Note Date Seen: Jan 11, 2025 Resident Creating Document: BRENDA HITCHCOCK RESIDENT Medical Necessity Reason Pt with a Central, PICC or Fol: Yes The following are medically ne: Central Line, Torres Catheter Subjective Review of Systems Patient is a 38-year-old female with past medical history of chronic severe anemia which required blood transfusions via before in June on August, uterine fibroids, chronic liver ascites who came to the ED with chief complaint of severe diffuse abdominal pain 8/10 in intensity, which radiates to the back, gradual increase in shortness of breath, and nausea since the past week. She complained of severe bloating and abdominal swelling since last Saturday, dry mouth, dry cough, dizziness, and bilateral leg pain due to edema. but he denies any hematemesis, headaches, diarrhea, dysuria, hematuria, but she complains her stool is darker than usual. Patient was supposed to follow-up with OBGYN for possible hysterectomy but did not. She states that she had no prior diagnosis of cirrhosis but was told during her June 2024 admission that she had liver and kidney damage. Patient seen and examined at the bedside. Reports feeling weak, IR placed tunneled catheter for dialysis. Dopamine started, patient did not tolerate, HR into 160s, decreased with vagal maneuvers. Discontinue dopamine. Continue diuresis. Radiologist consulted for liver biopsy. Objective vital signs Vital Sign Date Time Temp Pulse Resp B/P (MAP) Pulse Ox O2 Delivery O2 Flow Rate FiO2 01/11/25 13:07 96/45 01/11/25 07:00 95 20 95 01/11/25 05:00 99.0 99.0 01/10/25 19:30 Nasal Cannula* 2 28 Total Intake and Output 01/10/25 01/10/25 01/11/25 15:00 23:00 07:00 Intake Total 286 ml 160 ml 260 ml Output Total 150 ml 150 ml Balance 286 ml 10 ml 110 ml medications Current Medications Medications Dose Ordered Sig/Bárbara Route Start Time Stop Time Status Last Admin Dose Admin Ondansetron HCl 4 mg Q4HP PRN IV 01/07/25 17:15 01/07/25 19:24 4 MG Docusate Sodium 100 mg BIDPRN PRN PO 01/07/25 17:15 Morphine Sulfate 2 mg Q4HPRN PRN IV 01/07/25 17:15 01/09/25 08:25 2 MG Nitroglycerin 0.4 mg Q5MINP PRN SL 01/07/25 17:15 Octreotide Acetate 500 mcg/ Sodium Chloride 100 ml @ 10 mls/hr Q10H IV 01/07/25 17:15 01/11/25 06:41 10 MLS/HR Levofloxacin 50 ml @ 50 mls/hr DAILY IV 01/08/25 10:00 01/11/25 10:21 50 MLS/HR Thiamine HCl 100 mg DAILY IV 01/09/25 10:00 01/11/25 10:21 100 MG Pantoprazole Sodium 40 mg BID IV 01/08/25 22:00 01/11/25 10:21 40 MG Lactulose 15 ml DAILY PO 01/10/25 10:00 01/11/25 10:20 15 ML Tolvaptan 30 mg DAILY PO 01/10/25 10:00 01/11/25 10:55 30 MG Bumetanide 2 mg Q6HR IV 01/10/25 10:30 01/11/25 13:02 2 MG Midodrine 10 mg TID@0600,1200,1800 PO 01/11/25 12:00 01/11/25 12:07 10 MG Metolazone 15 mg DAILY PO 01/11/25 11:00 01/11/25 12:07 15 MG Examination Morbidly obese female patient lying in the bed, appears sick General: Morbidly obese,, afebrile, palor, scleral icterus, Cardiovascular: Tachycardic but regular S1 and S2. No murmurs, gallops or rubs. No JVD elevation. 2+ pedal pitting edema bilaterally Respiratory: Bilateral decreased air entry heard on auscultation, on RA Abdomen: Soft, distended, tender hypoactive bowel sounds, no rebound tenderness, no organomegaly, no masses Genitourinary: Deferred MSK/skin: Mobilizes 4 limbs. Skin is dry and warm Neurological: No motor, no sensitive deficits, normal speech. Pupils are isocoric and reactive. Psych/Mental Status: A/Ox3 laboratory and microbiology Laboratory Tests 01/11/25 09:30 Test 01/11/25 09:30 Range/Units Serum Glucose 108 H 74-106 mg/dL Microbiology Date/Time Source Procedure Growth Status 01/11/25 00:20 Nose MRSA Screen - Final Complete 01/08/25 15:00 Ascities Fluid Gram Stain - Final Resulted 01/08/25 15:00 Ascities Fluid Body Fluid Culture - Preliminary Resulted Labs and/or images reviewed: Labs reviewed by me, Image(s) reviewed by me Problem List/Assessment/Plan Problem List/Assessment/Plan Generalized weakness secondary to acute blood loss anemia ? Upper GI bleed, esophageal varices Possible metastatic liver disease - primary unknown Acute on chronic decompensated liver failure - meld score 35 - MDF - 33.9 Chronic alcohol dependence Alcoholic withdrawal - CIWA less than 8 IV octreotide drip IV pantoprazole b.i.d. GI consultation IR consulted for liver biopsy [facility] OC for metastatic cancer IV Levaquin Midodrine 10 mg TID steroids ci d/t gi bleed no role of NAC alone w/o steriods BetaBlocker cant be given given variceal bleed Acute Kidney Injury likely hepatorenal syndrome vs. pre-renal azotemia -FENA 0.3% hypervolemic hypotonic hyponatremia possibly secondary to cirrhosis Anion gap metabolic acidosis secondary to lactic acid Oliguria nephrology consulted - IV Bumex 2 mg q.6 hourly, metolazone, HD tonight Radiology placed tunneled catheter today 01/11 Patient did not tolerate dopamine, heart rate into 160s Tolvaptan 30 mg daily Pelvic mass ? Mass versus fibroid Abnormal uterine bleeding OBGYN consultation -[facility] for chef manager onc MRI showed 4.9 cm T2 hypointense structure in the posterior right hemipelvis. This may represent an exophytic fibroid versus possible endometrioma. # Gallstones , cholelithiasis- outpatient follow-up # History of miscarriage SCDs Clear liquid diet R tunn cath 01/11 Avoid morphine Plan discussed with patient, at bedside in which all questions have been answered Goals of care discussed with the patient for more than 20 minutes, full code status Case discussed with Dr. Interiano Plan discussed with: Patient My Orders My Orders Orders - BRENDA HITCHCOCK RESIDENT Procedure Category Date Status Time Blood Culture SHIRLEY 01/11/25 In Process 07:04 Midodrine Tablet PHA 01/11/25 In Process (Proamatine Tablet) 12:00 Type And Screen BBK 01/11/25 In Process 11:53 * Radiologist Consult CONS 01/11/25 Transmitted 13:59 Insertion Of Venous XY 01/11/25 [address]ed Cath 14:40 Dietary Evaluation Review Comments: 1) Continue thiamin supplementation. Consider adding folic acid and multivitamin. 2) Encourage optimal PO intake 3) Advance to 2g Na 80g hepatic diet when medically feasible 4) Refer to outpatient RD for weight management 5) Follow-up with hepatology, gastroenterology, and nephrology 6) Follow-up with social media director r/t ETOH dependency 7) Continue to monitor I&O, labs, and skin integrity Expected Outcomes/Goals: 1) appetite and labs to improve 2) GI symptoms to resolve 3) diet to advance 4) f/u in 3-5 days CC Plasma Assessment Blood Product Administration S: [id number] Date of Service: Jan 11, 2025 Billing Provider: GONZALO GREGORY MD Common Visit Codes: [id number] INP/OBS CARE(HIGH) BRENDA HITCHCOCK RESIDENT Jan 11, 2025 15:38 GONZALO GREGORY MD Jan 25, 2025 02:01
--- NOTE | 2025-01-11 16:03 | DVHINCON2 ---
Date of service: Jan 11, 2025 Referring Physician Hospitalist Reason for Consultation EVALUATION FOR HIGHER LEVER OF CARE Pelvic Mass History of Present Illness Pt is admitted for abdominal pain , ascites distention and noted to have metastatic cancer of unknown origin. Pt has been very non compliant, with previous suggested care, and follow up care. PT is an alcoholic and has liver Cirrhosis, and further work up with this evaluation reveals pelvic mass. Further evaluation needed for metastatic cancer of unknown origin, by CELL INSTALLER-ONC that is not present at this facility. Due to pts noncompliance to follow on her own and we highly recommend in patient transfer to [facility] to be evaluated by CELL INSTALLER-ONC. We appreciate your request for our participation in care. Past Medical History see previous dictated note Past Surgical History see previous dictated consult note. Family History see previous dictated consult note Social History see previous dictated consult note Patient Family History: Diabetes mellitus G8 MOTHER FH: anemia G8 MOTHER FH: cirrhosis G8 FATHER Hypertension G8 MOTHER Allergies: Coded Allergies: Ketorolac Tromethamine (Verified Allergy, Severe, dizziness, 06/13/24) Penicillins (Verified Allergy, Mild, dizziness, 06/13/24) Home Meds Active Scripts Ferrous Sulfate (FERROUS SULFATE) 325 Mg Tb, 325 MG PO MWF for 30 Days, #30 TAB Prov:BRENDA HITCHCOCK RESIDENT 08/28/24 Furosemide (Lasix) 20 Mg Tb, 40 MG PO DAILY for 10 Days, #20 TAB Prov:CORETTABRENDA RESIDENT 08/28/24 Cholecalciferol (VITAMIN D) 5,000 Unit Tab, 5000 UNIT OR DAILY for 30 Days, #30 TAB 0 [facility]/28/24 Current Medications Current Medications Medications (Trade) Dose Ordered Sig/Bárbara Route PRN Reason Start Time Stop Time Status Last Admin Midodrine (Proamatine Tablet) 10 mg TID@0600,1200,1800 PO 01/11/25 12:00 01/11/25 12:07 Metolazone (Zaroxolyn) 15 mg DAILY PO 01/11/25 11:00 01/11/25 12:07 Dopamine HCl/ Dextrose 250 ml @ 9.548 mls/ hr Q24H IV 01/11/25 12:30 01/11/25 15:13 DC 01/11/25 13:07 Review of Systems See previous dictated noted Vital Signs Vital Signs Date Time Temp Pulse Resp B/P (MAP) Pulse Ox O2 Delivery O2 Flow Rate FiO2 01/11/25 13:07 96/45 01/11/25 07:00 95 20 95 01/11/25 05:00 99.0 99.0 01/10/25 19:30 Nasal Cannula* 2 28 Physical Exam See previous dictated noted Labs/Diagnostic Data Labs Test 01/11/25 10:55 01/11/25 09:37 01/11/25 09:30 01/10/25 18:57 Range/Units Urine Osmolality 225 mOsm/kg Phosphorus Level 6.1 H 2.4-5.1 mg/dL Magnesium Level 2.0 1.6-2.6 mg/dL Ammonia 18 11-32 umol/L White Blood Count 10.2 4.4-10.8 10^3/uL Red Blood Count 2.57 L 4.0-5.20 10^6/uL Hemoglobin 7.3 L 12.2-16.2 g/dL Hematocrit 21.9 L 36.0-46.0 % Mean Corpuscular Volume 85.2 80.0-100.0 fL Mean Corpuscular Hemoglobin 28.6 28.0-32.0 pg Mean Corpuscular Hemoglobin Concent 33.6 32.0-36.0 g/dL Red Cell Distribution Width 22.6 H 11.8-14.3 % Platelet Count 104 L 140-450 10^3/uL Mean Platelet Volume 8.0 6.9-10.8 fL Neutrophils (%) (Auto) 37.0-80.0 % Lymphocytes (%) (Auto) 10.0-50.0 % Monocytes (%) (Auto) 0.0-12.0 % Basophils (%) (Auto) 0.0-2.0 % Neutrophils # (Auto) 1.6-8.6 10 ^3/uL Lymphocytes # (Auto) 0.4-5.4 10 ^3/uL Monocytes # (Auto) 0-1.3 10 ^3/uL Differential Total Cells Counted 100.0 100 Neutrophils % (Manual) 74 37.0-80.0 Band Neutrophils % (Manual) 0 Lymphocytes % (Manual) 26 10.0-50.0 Monocytes % (Manual) 0 0-12 Eosinophils % (Manual) 0 0-7 Basophils % (Manual) 0 0.0-2.0 Metamyelocytes % (manual) 0 Myelocytes % (Manual) 0 Promyelocytes % (Manual) 0 Blast Cells % (Manual) 0 Reactive Lymphocytes 0 Platelet Estimate Decreased Sodium Level 125 L 136-145 mmol/L Potassium Level 4.9 3.5-5.1 mmol/L Chloride Level 93 L 98-107 mmol/L Carbon Dioxide Level 19 L 20-31 mmol/L Anion Gap 13 5-15 Blood Urea Nitrogen 48 #H 9-23 mg/dL Creatinine 7.80 H 0.550-1.02 mg/dL Glomerular Filtration Rate Calc 6 >90 mL/min BUN/Creatinine Ratio 6.2 L 10.0-20.0 Serum Glucose 108 H 74-106 mg/dL Calcium Level 8.5 L 8.7-10.4 mg/dL Lactate Dehydrogenase 161 120-246 U/L Prothrombin Time 17.7 H 9.3-11.8 sec Prothrombin Time INR 1.77 H 0.9-1.15 Test 01/10/25 06:07 01/09/25 21:52 01/09/25 16:15 01/09/25 04:20 Range/Units Eosinophils (%) (Auto) 1.2 0.0-7.0 % Eosinophils # (Auto) 0.1 0-0.8 10 ^3/uL Basophils # (Auto) 0 0-0.2 10 ^3/uL Nucleated Red Blood Cells 0.0 % Total Bilirubin 9.7 H 0.2-1.0 mg/dL Aspartate Amino Transferase (AST) 35 13-40 U/L Alanine Aminotransferase (ALT) 13 7-40 U/L Alkaline Phosphatase 63 46-116 U/L Total Protein 7.7 5.7-8.2 g/dL Albumin 3.9 3.2-4.8 g/dL Urine Creatinine 180.93 H 30.0-125.0 mg/dL Urine Sodium 27 L 40-220 mmol/L Stool Occult Blood Positive Negative Stool Occult Blood Sample #3 Negative Activated Partial Thromboplast Time 31.8 24.5-34.5 SEC Test 01/08/25 20:01 01/08/25 18:20 01/08/25 18:06 01/08/25 16:30 Range/Units Lactic Acid Level 3.3 *H 0.4-2.0 mmol/L Tumor Marker Alpha Fetoprotein 2.0 0.0-6.4 ng/mL Blood Gas Specimen Type Arterial Blood Gas Sample Site Right radial Blood Gas Patient Temperature 37.0 Arterial Blood Date Drawn [id number] Arterial Blood pH 7.374 7.350-7.450 Arterial Blood Partial Pressure CO2 23.6 L 32.0-45.0 mmHg Arterial Blood Partial Pressure O2 68.1 L 83.0-108.0 mmHg Arterial Blood HCO3 13.5 L 21.0-28.0 mmol/L Arterial Blood Oxygen Saturation 90.9 L 94.0-98.0 % Arterial Blood Base Excess -10.7 L -2.0-3.0 mmol/L Arterial Blood Oxyhemoglobin 88.7 L 94.0-98.0 % Arterial Blood Carboxyhemoglobin 1.8 H 0.5-1.5 % Arterial Blood Methemoglobin 0.6 0.0-1.5 % Jeffrey Test Yes Blood Gas Total Hemoglobin 6.50 *L 12.0-16.0 g/dL Blood Gas Modality Room air Blood Gas Spontaneous Rate 22 FiO2 % 21.0 Blood Gas Critical Value Read Back yes Blood Gas Notified Whom md paddy de la torre Blood Gas Notified Time [id number] Blood Gas Notified By information systems security developer juan hurtado Urine Color Yellow Yellow Urine Clarity Turbid H Clear Urine pH 5.5 5.0-9.0 Urine Specific Ballinger 1.014 1.001-1.035 Urine Protein 2+ H Negative Urine Ketones Negative Negative Urine Blood Negative Negative /uL Urine Nitrite Negative Negative Urine Bilirubin 1+ H Negative Urine Urobilinogen 2 H Negative mg/dL Urine Leukocyte Esterase Negative Negative /uL Urine RBC 2 0 - 4 /hpf Urine Microscopic WBC 3 0-5 /HPF Urine Squamous Epithelial Cells Few <5 /hpf Urine Amorphous Crystals Mod None Seen /hpf Urine Bacteria Few H None Seen /hpf Urine Protein/Creatinine Ratio 0.96 Urine Glucose Normal Normal mg/dL Urine Total Protein 232.7 H 1-14 mg/dL Urine Opiates Screen Neg NEGATIVE Urine Fentanyl Screen Neg NEGATIVE Urine Barbiturates Screen Neg NEGATIVE Urine Phencyclidine Screen Neg NEGATIVE Urine Amphetamines Screen Neg NEGATIVE Urine Benzodiazepines Screen Neg NEGATIVE Urine Cocaine Screen Neg NEGATIVE Urine Cannabinoids Screen Neg NEGATIVE Test 01/08/25 16:06 01/08/25 15:00 01/08/25 14:15 01/08/25 11:35 Range/Units Plasma/Serum Blood Alcohol < 3.0 <10 mg/dL Body Fluid Source Peritoneal fluid Body Fluid pH 8.0 Body Fluid WBC (Manual) 801 H 0-200 CUMM Body Fluid RBC (Manual) 3308 H 0-2000 CUMM Body Fluid Mononuclear Cells 89 % Body Fluid Polymorphonuclear Cells 11 0-25 % Body Fluid Glucose 106 . mg/dL Body Fluid Total Protein 3.1 . g/dL POC Glucose 94 70-106 mg/dl Test 01/08/25 08:30 01/07/25 15:55 Range/Units Reticulocyte Count (auto) 2.52 H 0.5-1.5 % Serum Osmolality 273 L 278-298 mOsm/kg Iron Level 265 H 50-170 ug/dL Total Iron Binding Capacity 291 250-425 ug/dL Percent Iron Saturation 91.1 H 15-50 % Ferritin 30.9 10-291 ng/mL Thyroid Stimulating Hormone (TSH) 1.88 0.55-4.78 uIU/mL Beta HCG, Quantitative 0.7 L 1.5-4.2 mIU/mL Hypochromasia (manual) Moderate Poikilocytosis (manual) Slight Anisocytosis (manual) Moderate [place] Cells Few Lipase 109 H 12-53 U/L Microbiology Date/Time Source Procedure Growth Status 01/11/25 00:20 Nose MRSA Screen - Final Complete 01/08/25 15:00 Ascities Fluid Gram Stain - Final Resulted 01/08/25 15:00 Ascities Fluid Body Fluid Culture - Preliminary Resulted Primary Diagnosis CRANE HELPER consultation See previous dictated noted. Signing off on case Admitting Diagnosis: Pt is admitted for abdominal pain , ascites distention and noted to have metastatic cancer of unknown origin. Pt has been very non compliant, with previous suggested care, and follow up care. PT is an alcoholic and has liver Cirrhosis, and further work up with this evaluation reveals pelvic mass. Further evaluation needed for metastatic cancer of unknown origin, by CELL INSTALLER-ONC that is not present at this facility. Due to pts noncompliance to follow on her own and we highly recommend in patient transfer to [facility] to be evaluated by CELL INSTALLER-ONC. We appreciate your request for our participation in care. Plan Further evaluation needed for metastatic cancer of unknown origin, by CELL INSTALLER-ONC that is not present at this facility. Due to pts noncompliance to follow on her own and we highly recommend in patient transfer to [facility] to be evaluated by CELL INSTALLER-ONC. Plan discussed with: Patient, Other Visit Coding OBGYN Date of Service: Jan 11, 2025 Billing Provider: NAKUL ONTIVEROS CRANE HELPER Common Visit Codes: CONSULTATION ONLY CRANE HELPER Consultation Codes: [id number] CONSULT <20MIN, [id number] CO NSULT <40MIN NAKUL ONTIVEROS Jan 11, 2025 16:03
[2025-01-11] MEDS: NOREPINEPHRINE 8 MG/250ML KIT 250 ML IV SCH (18:28)
[2025-01-11] MEDS: HEPARIN SODIUM (PORCINE) 5000 UNITS/ML 1ML VIAL ONE (21:31)
[2025-01-11] MEDS: LIDOCAINE 2%HCL (LOCAL ANESTH.) INJ 20ML MDV ONE (21:32)
[2025-01-11] MEDS: fentaNYL CITRATE 100 MCG/2 ML VL ONE (21:32)
[2025-01-11] MEDS: MIDAZOLAM HCL 2MG/2ML 2ml VIAL (1mg/ml) ONE (21:32)
[2025-01-11] MEDS: FOLIC ACID 1 MG TAB PO ONE (23:25)
[2025-01-12] VITALS (74 sets, daily range): BP systolic 79–118; BP diastolic 35–73; PULSE 76–92; RESP 9–23; TEMP 98.1–98.9; O2SAT 88–100
[2025-01-12 00:46] LABS: Hematocrit 23.2 % (36.0-46.0); Hemoglobin 7.9 g/dL (12.2-16.2)
[2025-01-12 05:08] LABS: Hemoglobin 7.5 g/dL (12.2-16.2)
[2025-01-12 05:10] LABS: Hematocrit 22.2 % (36.0-46.0); Mean Corpuscular Hemoglobin 28.3 pg (28.0-32.0); Mean Corpuscular Volume 83.6 fL (80.0-100.0); Nucleated Red Blood Cells % 0.1 %
[2025-01-12 05:15] LABS: INR 1.87 (0.9-1.15); Partial Thromboplastin Time 43.8 SEC (24.5-34.5); Prothrombin Time 18.6 sec (9.3-11.8)
[2025-01-12 05:24] LABS: Alanine Aminotransferase 15 U/L (7-40); Alkaline Phosphatase 54 U/L (46-116); Anion Gap 10 (5-15); Carbon Dioxide 21 mmol/L (20-31); Magnesium 1.9 mg/dL (1.6-2.6); Potassium 4.4 mmol/L (3.5-5.1)
[2025-01-12 05:25] LABS: Albumin 3.0 g/dL (3.2-4.8); Bilirubin, Direct 6.8 mg/dL (<0.3); Bilirubin, Total 10.0 mg/dL (0.2-1.0); Blood Urea Nitrogen 48 mg/dL (9-23); Calcium 7.9 mg/dL (8.7-10.4); Chloride 97 mmol/L (98-107); Glucose 110 mg/dL (74-106); Sodium 128 mmol/L (136-145)
[2025-01-12 05:36] LABS: BUN/Creatinine Ratio 6.3 (10.0-20.0)
[2025-01-12 06:08] LABS: Total Protein 6.3 g/dL (5.7-8.2)
[2025-01-12] MEDS: SODIUM CHL 0.9% 1000 ML BAG XX ONE (07:00)
[2025-01-12 07:39] LABS: Uric Acid 13.8 mg/dL (3.1-7.8)
[2025-01-12] MEDS ORDERED: EPOETIN ALFA-EPBX 10,000 UNIT/1ML VIAL SC SCH (10:00)
[2025-01-12] MEDS: FOLIC ACID 1 MG TAB PO SCH (10:42)
[2025-01-12 10:48] LABS: Iron 89.0 ug/dL (50-170)
[2025-01-12 11:16] LABS: Total Iron Binding Capacity 219.0 ug/dL (250-425)
--- NOTE | 2025-01-12 12:08 | DVHPN2 ---
Progress Note Date Seen: Jan 12, 2025 Medical Necessity Reason Pt with a Central, PICC or Fol: Yes The following are medically ne: Central Line, Torres Catheter Objective vital signs Vital Sign Date Time Temp Pulse Resp B/P (MAP) Pulse Ox O2 Delivery O2 Flow Rate FiO2 01/12/25 10:42 97/49 01/12/25 09:56 85 01/12/25 09:45 20 97 01/12/25 08:00 Room Air* 0 21 01/12/25 08:00 98.4 98.4 Total Intake and Output 01/11/25 01/11/25 01/12/25 15:00 23:00 07:00 Intake Total 120 ml 2188.75 ml 140.500 ml Output Total 225 ml 250 ml Balance 120 ml 1963.75 ml -109.500 ml medications Current Medications Medications Dose Ordered Sig/Bárbara Route Start Time Stop Time Status Last Admin Dose Admin Ondansetron HCl 4 mg Q4HP PRN IV 01/07/25 17:15 01/07/25 19:24 4 MG Docusate Sodium 100 mg BIDPRN PRN PO 01/07/25 17:15 Nitroglycerin 0.4 mg Q5MINP PRN SL 01/07/25 17:15 Octreotide Acetate 500 mcg/ Sodium Chloride 100 ml @ 10 mls/hr Q10H IV 01/07/25 17:15 01/12/25 03:15 10 MLS/HR Levofloxacin 50 ml @ 50 mls/hr DAILY IV 01/08/25 10:00 01/12/25 10:42 50 MLS/HR Thiamine HCl 100 mg DAILY IV 01/09/25 10:00 01/12/25 10:40 100 MG Pantoprazole Sodium 40 mg BID IV 01/08/25 22:00 01/12/25 10:40 40 MG Lactulose 15 ml DAILY PO 01/10/25 10:00 01/12/25 10:40 15 ML Tolvaptan 30 mg DAILY PO 01/10/25 10:00 01/12/25 10:40 30 MG Bumetanide 2 mg Q6HR IV 01/10/25 10:30 01/12/25 06:05 2 MG Midodrine 10 mg TID@0600,1200,1800 PO 01/11/25 12:00 01/11/25 18:27 10 MG Metolazone 15 mg DAILY PO 01/11/25 11:00 01/12/25 10:42 15 MG Norepinephrine Bitartrate 250 ml @ 3.75 mls/hr Q24H IV 01/11/25 18:15 01/11/25 18:28 3.75 MLS/HR Trazodone HCl 50 mg HS PO 01/12/25 22:00 Folic Acid 1 mg DAILY PO 01/12/25 10:00 01/12/25 10:42 1 MG Epoetin Gilbert-epbx 10,000 unit TUTHSA SC 01/12/25 10:00 UNV Examination: GENERAL:Abnormal, LUNGS:Abnormal, CVS:Abnormal, SKIN:Abnormal laboratory and microbiology Laboratory Tests 01/12/25 04:41 Test 01/12/25 04:41 Range/Units Serum Glucose 110 H 74-106 mg/dL Microbiology Date/Time Source Procedure Growth Status 01/11/25 09:37 Blood Blood Culture - Preliminary NO GROWTH AFTER 24 HOURS OF INCUBATION. Resulted 01/11/25 00:20 Nose MRSA Screen - Final Complete 01/08/25 15:00 Ascities Fluid Gram Stain - Final Resulted 01/08/25 15:00 Ascities Fluid Body Fluid Culture - Preliminary Resulted Problem List/Assessment/Plan Problem List/Assessment/Plan 39 year female PMH etoh abuse p/w weakness Acute kidney injury hepatorenal syndrome vs hemodynamic ckd II etoh cirrhosis, liver masses severe anasarca and ascites anemia due to liver disease hyponatremia due to volume overload severe anasarca second daily of HD- predominantly PUF HD today, rec frequent HD for volume removal PRN PRBC to keep hb > 8.0 triple diuretics- tolvaptan, bumex and metolazone epogen 3x a week monitor UOP fluid restriction midodrine po to keep map> 65 levophed keep MAP > 65 poor overall prognosis pending IR liver biopsy Plan discussed with: Patient, Spouse My Orders My Orders Orders - EDMOND MAS MD Procedure Category Date Status Time Norepinephrine 8 PHA 01/11/25 In Process Mg/250ml Kit 18:15 Hepatitis B Surface LAB 01/11/25 In Process Antigen 18:45 Hemodialysis Orders ORDERS 01/12/25 Transmitted 07:00 Dialysis Nursing RAFAEL 01/12/25 In Process Message 07:00 Document Fluid Input RAFAEL 01/12/25 In Process And Outpu 07:00 Basic Metabolic Panel LAB 01/13/25 Verified 04:00 Complete Blood Count LAB 01/13/25 Verified 04:00 Epoetin Gilbert-Epbx PHA 01/12/25 Logged (Retacrit) 10:00 Dietary Evaluation Review Comments: 1) Continue thiamin supplementation. Consider adding folic acid and multivitamin. 2) Encourage optimal PO intake 3) Advance to 2g Na 80g hepatic diet when medically feasible 4) Refer to outpatient RD for weight management 5) Follow-up with hepatology, gastroenterology, and nephrology 6) Follow-up with social service coordinator r/t ETOH dependency 7) Continue to monitor I&O, labs, and skin integrity Expected Outcomes/Goals: 1) appetite and labs to improve 2) GI symptoms to resolve 3) diet to advance 4) f/u in 3-5 days Critical Care Time (mins): 33 CC Plasma Assessment Blood Product Administration S: [id number] EDMOND MAS MD Jan 12, 2025 12:08
[2025-01-12] MEDS: GELATIN 1 SPONGE SIZE 50 TOP ONE (14:26)
--- NOTE | 2025-01-12 14:27 | DVHPNRES ---
Progress Note Date Seen: Jan 12, 2025 Resident Creating Document: BRENDA HITCHCOCK RESIDENT Medical Necessity Reason Pt with a Central, PICC or Fol: Yes The following are medically ne: Central Line, Torres Catheter Subjective Review of Systems Patient is a 38-year-old female with past medical history of chronic severe anemia which required blood transfusions via before in June on August, uterine fibroids, chronic liver ascites who came to the ED with chief complaint of severe diffuse abdominal pain 8/10 in intensity, which radiates to the back, gradual increase in shortness of breath, and nausea since the past week. She complained of severe bloating and abdominal swelling since last Saturday, dry mouth, dry cough, dizziness, and bilateral leg pain due to edema. but he denies any hematemesis, headaches, diarrhea, dysuria, hematuria, but she complains her stool is darker than usual. Patient was supposed to follow-up with OBGYN for possible hysterectomy but did not. She states that she had no prior diagnosis of cirrhosis but was told during her June 2024 admission that she had liver and kidney damage. 01/11 - Patient seen and examined at the bedside. Reports feeling weak, IR placed tunneled catheter for dialysis. Dopamine started, patient did not tolerate, HR into 160s, decreased with vagal maneuvers. Discontinue dopamine. Continue diuresis. Radiologist consulted for liver biopsy. 01/12 - patient seen and examined, underwent HD last night 2.4 L taken out, underwent hemodialysis today, 2 L taken off. Patient is requiring Levophed during hemodialysis. Pending liver biopsy. Objective vital signs Vital Sign Date Time Temp Pulse Resp B/P (MAP) Pulse Ox O2 Delivery O2 Flow Rate FiO2 01/12/25 13:30 87 14 94/55 (68) 94 01/12/25 12:00 98.1 98.1 01/12/25 08:00 Room Air* 0 21 Total Intake and Output 01/11/25 01/11/25 01/12/25 15:00 23:00 07:00 Intake Total 120 ml 2188.75 ml 140.500 ml Output Total 225 ml 250 ml Balance 120 ml 1963.75 ml -109.500 ml medications Current Medications Medications Dose Ordered Sig/Bárbara Route Start Time Stop Time Status Last Admin Dose Admin Ondansetron HCl 4 mg Q4HP PRN IV 01/07/25 17:15 01/07/25 19:24 4 MG Docusate Sodium 100 mg BIDPRN PRN PO 01/07/25 17:15 Nitroglycerin 0.4 mg Q5MINP PRN SL 01/07/25 17:15 Octreotide Acetate 500 mcg/ Sodium Chloride 100 ml @ 10 mls/hr Q10H IV 01/07/25 17:15 01/12/25 03:15 10 MLS/HR Levofloxacin 50 ml @ 50 mls/hr DAILY IV 01/08/25 10:00 01/12/25 10:42 50 MLS/HR Thiamine HCl 100 mg DAILY IV 01/09/25 10:00 01/12/25 10:40 100 MG Pantoprazole Sodium 40 mg BID IV 01/08/25 22:00 01/12/25 10:40 40 MG Lactulose 15 ml DAILY PO 01/10/25 10:00 01/12/25 10:40 15 ML Tolvaptan 30 mg DAILY PO 01/10/25 10:00 01/12/25 10:40 30 MG Bumetanide 2 mg Q6HR IV 01/10/25 10:30 01/12/25 12:16 2 MG Midodrine 10 mg TID@0600,1200,1800 PO 01/11/25 12:00 01/12/25 12:16 10 MG Metolazone 15 mg DAILY PO 01/11/25 11:00 01/12/25 10:42 15 MG Norepinephrine Bitartrate 250 ml @ 3.75 mls/hr Q24H IV 01/11/25 18:15 01/11/25 18:28 3.75 MLS/HR Trazodone HCl 50 mg HS PO 01/12/25 22:00 Folic Acid 1 mg DAILY PO 01/12/25 10:00 01/12/25 10:42 1 MG Epoetin Gilbert-epbx 10,000 unit TUTHSA SC 01/12/25 10:00 Examination Morbidly obese female patient lying in the bed, appears sick General: Morbidly obese,, afebrile, palor, scleral icterus, Cardiovascular: Tachycardic but regular S1 and S2. No murmurs, gallops or rubs. No JVD elevation. 2+ pedal pitting edema bilaterally Respiratory: Bilateral decreased air entry heard on auscultation, on RA Abdomen: Soft, distended, tender hypoactive bowel sounds, no rebound tenderness, no organomegaly, no masses Genitourinary: Deferred MSK/skin: Mobilizes 4 limbs. Skin is dry and warm Neurological: No motor, no sensitive deficits, normal speech. Pupils are isocoric and reactive. Psych/Mental Status: A/Ox3 laboratory and microbiology Laboratory Tests 01/12/25 04:41 Test 01/12/25 04:41 Range/Units Serum Glucose 110 H 74-106 mg/dL Microbiology Date/Time Source Procedure Growth Status 01/11/25 09:37 Blood Blood Culture - Preliminary NO GROWTH AFTER 24 HOURS OF INCUBATION. Resulted 01/11/25 00:20 Nose MRSA Screen - Final Complete 01/08/25 15:00 Ascities Fluid Gram Stain - Final Resulted 01/08/25 15:00 Ascities Fluid Body Fluid Culture - Preliminary Resulted Labs and/or images reviewed: Labs reviewed by me, Image(s) reviewed by me Problem List/Assessment/Plan Problem List/Assessment/Plan Generalized weakness secondary to acute blood loss anemia ? Upper GI bleed, esophageal varices Possible metastatic liver disease - primary unknown s/p liver biopsy 01/12 Acute on chronic decompensated liver failure - meld score 35 - MDF - 33.9 Chronic alcohol dependence Alcoholic withdrawal - CIWA less than 8 IV octreotide drip IV pantoprazole b.i.d. GI consultation IR consulted for liver biopsy-patient underwent liver biopsy 01/12 IV Levaquin Midodrine 10 mg TID steroids ci d/t gi bleed no role of NAC alone w/o steriods BetaBlocker cant be given given variceal bleed Acute Kidney Injury likely hepatorenal syndrome vs. pre-renal azotemia -FENA 0.3% requiring hemodialysis hypervolemic hypotonic hyponatremia possibly secondary to cirrhosis Anion gap metabolic acidosis secondary to lactic acid Oliguria nephrology consulted - IV Bumex 2 mg q.6 hourly, metolazone, HD 01/11, 01/12 Radiology placed tunneled catheter today 01/11 Patient did not tolerate dopamine, heart rate into 160s Tolvaptan 30 mg daily Pelvic mass ? Mass versus fibroid Abnormal uterine bleeding OBGYN consultation -OC for hand drawer in onc MRI showed 4.9 cm T2 hypointense structure in the posterior right hemipelvis. This may represent an exophytic fibroid versus possible endometrioma. # Gallstones , cholelithiasis- outpatient follow-up # History of miscarriage SCDs Clear liquid diet R tunn cath 01/11 Avoid morphine Plan discussed with patient, at bedside in which all questions have been answered Goals of care discussed with the patient for more than 20 minutes, full code status Case discussed with Dr. Interiano Plan discussed with: Patient, Spouse My Orders My Orders Orders - BRENDA HITCHCOCK Procedure Category Date Status Time Insertion Of Venous XY 01/11/25 Resulted Cath 14:40 Bipap/Cpap For Sleep RT 01/11/25 Logged Apnea 22:58 Trazodone Hcl PHA 01/12/25 In Process (Desyrel) 22:00 Folic Acid Tablet PHA 01/12/25 In Process 10:00 Urine Bacterial SHIRLEY 01/11/25 Logged Culture 23:06 * Slot Ambassador CONS 01/12/25 Transmitted Consult Pt Request For Service PT 01/12/25 Logged 10:48 Dietary Evaluation Review Comments: 1) Continue thiamin supplementation. Consider adding folic acid and multivitamin. 2) Encourage optimal PO intake 3) Advance to 2g Na 80g hepatic diet when medically feasible 4) Refer to outpatient RD for weight management 5) Follow-up with hepatology, gastroenterology, and nephrology 6) Follow-up with licensed master social worker r/t ETOH dependency 7) Continue to monitor I&O, labs, and skin integrity Expected Outcomes/Goals: 1) appetite and labs to improve 2) GI symptoms to resolve 3) diet to advance 4) f/u in 3-5 days CC Plasma Assessment Blood Product Administration S: [id number] Date of Service: Jan 12, 2025 Billing Provider: GONZALO GREGORY MD Common Visit Codes: [id number] INP/OBS CARE(HIGH) BRENDA HITCHCOCK Jan 12, 2025 14:27 GONZALO GREGORY MD Jan 25, 2025 02:12
--- NOTE | 2025-01-12 14:49 | MEDREC ---
[facility] Intervention Section I [facility] Intervention: Review courses of therapy (CONSIDER SWITCHING TO CIPROFLOXACIN 400MG IV Q24H. NORMAL THERAPY FOR SBP INCLUDES EITHER CEFTRIAXONE OR CEFOTAXIME HOWEVER, DUE TO PENICILLIN ALLERGY, CIPROFLOXACIN IS RECOMMENDED. ) [facility] RESIDENT Jan 12, 2025 14:49
[2025-01-12] MEDS: LIDOCAINE 2% (LOCAL ANESTH.) PF 5ml SDV ONE (14:51)
--- NOTE | 2025-01-12 15:27 | DVH ---
PROCEDURE: Ultrasound-guided biopsy Procedural Personnel Attending physician(s): Roney Moss Fellow physician(s): None Resident physician(s): None Advanced practice provider(s): None Procedure Date (//yyyy): 01/12/2025 Pre-procedure diagnosis: Liver disease Post-procedure diagnosis: Same Indication: Organ dysfunction Previous biopsy of same target: No Additional clinical history: Reported radiology report of hypodense lesions of the hepatic parenchyma concerning for metastatic disease/malignancy. Differential considerations should include cirrhosis, hepatitis, and congestive hepatopathy. Complications: No immediate complications. IMPRESSION: Ultrasound-guided biopsy of right hepatic lobe. No sonographically evident hepatic masses with diffus td heterogeneous echogenicity of the hepatic parenchyma, possibly related to differential included a yolanda. Plan: Specimen(s) sent for evaluation. Consideration should be given towards FFP for correction of coagulopathy (borderline INR for percutan eous liver biopsy). PROCEDURE SUMMARY: - Percutaneous US-guided coaxial core needle biopsy - Additional procedure(s): None PROCEDURE DETAILS: Pre-procedure Reference imaging for biopsy target: CT A/P 01/08/25 Consent: Informed consent for the procedure including risks, benefits and alternatives was obtained a nd time-out was performed prior to the procedure. Preparation: The site was prepared and draped using maximal sterile barrier technique including cutan eous antisepsis. Anesthesia/sedation Level of anesthesia/sedation: No sedation Anesthesia/sedation administered by: Not applicable Total intra-service sedation time (minutes): 0 Imaging prior to biopsy The patient was positioned left lateral decubitus oblique. Initial imaging was performed. Biopsy target: - Organ or target location: Liver - Laterality: Single Organ - Maximal diameter (cm): NA Other findings: None Biopsy Local anesthesia was administered. Under US guidance, the biopsy needle was advanced to the target an d biopsy was performed. Coaxial needle: 17 gauge Core needle biopsy device: Vanu Coverageince Core needle size: 18 gauge Number of core specimens: 2 Fine needle aspiration device: NA Fine needle size: Not applicable Number of FNA specimens: Not applicable On-site assessment of biopsy adequacy: No Additional sampling recommendations: None Preliminary assessment of sample adequacy: Not applicable Needle removal The biopsy needle was removed and a sterile dressing was applied. Tract embolization: Gelfoam pledgets Imaging following biopsy Immediate post-biopsy ultrasound was performed. Post-biopsy imaging findings: No significant hemorrhage Additional Details Additional description of procedure: None Registry event: V/3/g Device used: None Equipment details: None Unique Device Identifiers: Not available Specimens removed: Biopsy samples as detailed above Estimated blood loss (mL): Less than 10 Standardized report: [email or web address] Attestation Signer name: Roney Moss I attest that I was present for the entire procedure. I reviewed the stored images and agree with the report as written.
[2025-01-12] MEDS: Ensure HIGH Protein Chocolate 8oz Bottle PO SCH (18:00)
--- NOTE | 2025-01-12 18:31 | DVHPN2 ---
Progress Note Date Seen: Jan 12, 2025 Resident Creating Document: MILE LORA RESIDENT Has the PT tested + for MRSA If YES, has PT been informed?: No Medical Necessity Reason Pt with a Central, PICC or Fol: Yes The following are medically ne: Central Line, Torres Catheter Subjective Review of Systems The patient is a 38-year-old female with a history of alcoholic cirrhosis, severe anemia, CKD, uterine fibroids, gallstones, and chronic alcohol dependence. She was admitted with acute lower GI bleed, melena, progressive abdominal distention, diffuse abdominal pain (01/17 radiating to the back), nausea, bloating, and bilateral leg pain due to edema. She has a history of heavy alcohol use (last drink 12/31/24), multiple transfusions, and no prior EGD. Today (01/12/25): * Underwent second hemodialysis session, 2L fluid removed (1st session 01/11, 2.4L removed). * Paracentesis site (RLQ) leaking clear fluid; paracentesis on 01/08 removed 2.6L straw-colored ascitic fluid. * Liver biopsy completed today, no immediate complications. * Reports RUQ pain POST LIVER BIOPSY, intermittent abdominal cramps (last night), and nausea/vomiting with oral meds. * Swelling of abdomen and liver improving post-HD and paracentesis. * Diet: Clear liquid, receiving Ensure High Protein PO TID. Tumor Markers * CEA 8.82 ?, AFP normal, LDH normal, CA-19-9 and CA-125 pending. Peritoneal Fluid (01/08) * WBC 801 (mononuclear predominance), RBC 3308, Glucose 106, Protein 3.1 ? Non- SBP ascites. Microbiology * Blood cultures: No growth (24h). * Ascitic fluid: No growth. Imaging * CT Abdomen/Pelvis: Innumerable hepatic lesions replacing >50% liver parenchyma ? suspicious for malignancy/metastatic disease; cirrhotic morphology, moderate ascites, pelvic mass (fibroid vs endometrioma), left pleural effusion, anasarca. * MRI Abdomen/Pelvis: Limited, diffuse body wall edema, small pelvic ascites, pelvic mass 4.9 cm hypointense lesion. * US Paracentesis (01/08): 2.6L ascitic fluid removed, no complications. * US Liver Biopsy (01/12): Right hepatic lobe, diffusely heterogeneous, specimen sent for pathology. * CXR: Cardiomegaly with CHF, no effusion or consolidation. Objective vital signs Vital Sign Date Time Temp Pulse Resp B/P (MAP) Pulse Ox O2 Delivery O2 Flow Rate FiO2 01/12/25 18:14 95/46 01/12/25 16:00 85 01/12/25 13:30 14 94 01/12/25 12:00 98.1 98.1 01/12/25 08:00 Room Air* 0 21 Total Intake and Output 01/11/25 01/11/25 01/12/25 15:00 23:00 07:00 Intake Total 120 ml 2188.75 ml 140.500 ml Output Total 225 ml 250 ml Balance 120 ml 1963.75 ml -109.500 ml medications Current Medications Medications Dose Ordered Sig/Bárbara Route Start Time Stop Time Status Last Admin Dose Admin Ondansetron HCl 4 mg Q4HP PRN IV 01/07/25 17:15 01/07/25 19:24 4 MG Docusate Sodium 100 mg BIDPRN PRN PO 01/07/25 17:15 Nitroglycerin 0.4 mg Q5MINP PRN SL 01/07/25 17:15 Octreotide Acetate 500 mcg/ Sodium Chloride 100 ml @ 10 mls/hr Q10H IV 01/07/25 17:15 01/12/25 14:38 10 MLS/HR Levofloxacin 50 ml @ 50 mls/hr DAILY IV 01/08/25 10:00 01/12/25 10:42 50 MLS/HR Thiamine HCl 100 mg DAILY IV 01/09/25 10:00 01/12/25 10:40 100 MG Pantoprazole Sodium 40 mg BID IV 01/08/25 22:00 01/12/25 10:40 40 MG Lactulose 15 ml DAILY PO 01/10/25 10:00 01/12/25 10:40 15 ML Tolvaptan 30 mg DAILY PO 01/10/25 10:00 01/12/25 10:40 30 MG Bumetanide 2 mg Q6HR IV 01/10/25 10:30 01/12/25 18:14 2 MG Midodrine 10 mg TID@0600,1200,1800 PO 01/11/25 12:00 01/12/25 18:14 10 MG Metolazone 15 mg DAILY PO 01/11/25 11:00 01/12/25 10:42 15 MG Norepinephrine Bitartrate 250 ml @ 3.75 mls/hr Q24H IV 01/11/25 18:15 01/11/25 18:28 3.75 MLS/HR Trazodone HCl 50 mg HS PO 01/12/25 22:00 Folic Acid 1 mg DAILY PO 01/12/25 10:00 01/12/25 10:42 1 MG Epoetin Gilbert-epbx 10,000 unit TUTHSA SC 01/12/25 21:00 Enteral Nutritional Formula 240 ml TIDWM PO 01/12/25 18:00 Examination * General: Chronically ill but alert, oriented 3. * Abdomen: Distended, fluid wave, RUQ tenderness, mild leakage from RLQ paracentesis site, liver palpable and tender. * Extremities: Edema improving post-HD. laboratory and microbiology Laboratory Tests 01/12/25 04:41 Test 01/12/25 04:41 Range/Units Serum Glucose 110 H 74-106 mg/dL Microbiology Date/Time Source Procedure Growth Status 01/11/25 09:37 Blood Blood Culture - Preliminary NO GROWTH AFTER 24 HOURS OF INCUBATION. Resulted 01/11/25 00:20 Nose MRSA Screen - Final Complete 01/08/25 15:00 Ascities Fluid Gram Stain - Final Resulted 01/08/25 15:00 Ascities Fluid Body Fluid Culture - Preliminary Resulted Problem List/Assessment/Plan Problem List/Assessment/Plan ssessment 1. Decompensated alcoholic cirrhosis with severe ascites, coagulopathy, and hyperbilirubinemia (MELD ~35). 2. Multiple hepatic lesions, high suspicion for metastatic malignancy (CEA elevated, AFP normal), pathology pending. 3. Hepatorenal syndrome ongoing HD. 4. Severe ascites and anasarca improving with HD and paracentesis. 5. Acute on chronic GI bleed (melena) positive stool occult blood, anemia requiring transfusion. 6. Severe anemia secondary to chronic liver disease and GI bleeding. 7. Pelvic mass (fibroid vs endometrioma) needs REGULATORY SPECIALIST-oncology follow-up. 8. Severe malnutrition on clear liquids, receiving high-protein oral supplementation. Plan Gastrointestinal / Hepatic * Continue monitoring post-liver biopsy for bleeding. * Discontinue octerotide * Maintain Pantoprazole IV BID for GI bleed prophylaxis. * Avoid hepatotoxic medications and opioids (alphonso. morphine). * Use non-opioid analgesics for RUQ pain. * Plan for EGD and colonoscopy once hemodynamically stable to evaluate varices and rule out colorectal malignancy. * Continue SBP prophylaxis with IV ciprofloxacin daily. * Monitor LFTs, INR, CBC daily. * Pending biopsy pathology to guide oncology referral. Ascites * Continue fluid and sodium restriction. * Continue triple diuretics (Tolvaptan, Bumetanide, Metolazone) per nephrology. * Monitor paracentesis site for infection; apply dressing. * Repeat paracentesis PRN for recurrent tense ascites. Nutrition * Continue Ensure High Protein PO TID, clear liquid diet; advance as tolerated. * Monitor intake and weight daily. * Consider nutrition consult and TPN if oral intake insufficient. Oncology * Early oncology consult once biopsy results available. * Evaluate for possible metastatic colorectal cancer vs HCC. Hematology * PRBC transfusion PRN to maintain Hgb >8.0. * Continue Epoetin Gilbert-epbx SC protocol. * Monitor platelets, INR daily. Infectious Disease * Continue IV antibiotics (ciprofloxacin) for SBP prophylaxis. * Monitor cultures. Case discussed in detail with the attending physician, including the clinical presentation, diagnostic workup, and comprehensive management plan. The patient was present for the discussion and demonstrated understanding of her condition and the proposed plan. Plan discussed with: Patient Dietary Evaluation Review Comments: 1) Continue thiamin supplementation. Consider adding folic acid and multivitamin. 2) Encourage optimal PO intake 3) Advance to 2g Na 80g hepatic diet when medically feasible 4) Refer to outpatient RD for weight management 5) Follow-up with hepatology, gastroenterology, and nephrology 6) Follow-up with social sciences lecturer r/t ETOH dependency 7) Continue to monitor I&O, labs, and skin integrity Expected Outcomes/Goals: 1) appetite and labs to improve 2) GI symptoms to resolve 3) diet to advance 4) f/u in 3-5 days CC Plasma Assessment Blood Product Administration S: [id number] MILE LORA RESIDENT Jan 12, 2025 18:31
[2025-01-12] MEDS: EPOETIN ALFA-EPBX 10,000 UNIT/1ML VIAL SC SCH (21:16)
[2025-01-13] VITALS (88 sets, daily range): BP systolic 86–117; BP diastolic 33–62; PULSE 75–95; RESP 9–22; TEMP 98.1–98.9; O2SAT 77–99
[2025-01-13 05:33] LABS: Potassium 4.3 mmol/L (3.5-5.1)
[2025-01-13 05:34] LABS: Anion Gap 11 (5-15); Carbon Dioxide 21 mmol/L (20-31)
[2025-01-13 05:42] LABS: Blood Urea Nitrogen 43 mg/dL (9-23); Calcium 8.1 mg/dL (8.7-10.4); Chloride 97 mmol/L (98-107); Glucose 108 mg/dL (74-106); Sodium 129 mmol/L (136-145)
[2025-01-13 05:53] LABS: BUN/Creatinine Ratio 5.8 (10.0-20.0)
[2025-01-13 05:55] LABS: Hematocrit 22.1 % (36.0-46.0); Hemoglobin 7.5 g/dL (12.2-16.2); Mean Corpuscular Hemoglobin 28.8 pg (28.0-32.0); Mean Corpuscular Volume 84.5 fL (80.0-100.0)
[2025-01-13 06:23] LABS: Total Cells Counted 100.0 (100)
[2025-01-13] MEDS: SODIUM CHL 0.9% 1000 ML BAG XX ONE (07:00)
--- NOTE | 2025-01-13 07:19 | ECG ---
[facility] Test Date: 2025-01-11 Test Time: 15:01:15 Pat Name: MARCUS DIEGO Department: Respiratoy Room: 0263 A Gender: F Quantitative Analyst Marketing: LAURI : 1985 Requested By: BRENDA HITCHCOCK Order Number: [id number] Reading MD: Baldomero Sharpe Measurements Intervals [place] Rate: 162 P: 0 [place]: 0 QRS: 48 QRSD: 100 T: 9 QT: 299 QTc: 492 Interpretive Statements Sinus tachycardia Low voltage, extremity leads Borderline prolonged QT interval Electronically Signed On 01-18-2025 18:31:09 PDT by Baldomero Sharpe Please click the below link to view image of tracing.
--- NOTE | 2025-01-13 10:46 | ECG ---
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
[2025-01-13] MEDS: CIPROFLOXACIN 400MG/200ML 200 ML IV SCH (12:24)
--- NOTE | 2025-01-13 14:49 | DVHPN2 ---
Progress Note Date Seen: Jan 13, 2025 Resident Creating Document: MILE LORA RESIDENT Has the PT tested + for MRSA If YES, has PT been informed?: No Medical Necessity Reason Pt with a Central, PICC or Fol: Yes The following are medically ne: Central Line, Torres Catheter Subjective Review of Systems The patient is a 38-year-old female with a history of alcoholic cirrhosis, severe anemia, CKD, uterine fibroids, gallstones, and chronic alcohol dependence. She was admitted with acute lower GI bleed, melena, progressive abdominal distention, diffuse abdominal pain (8/10 radiating to the back), nausea, bloating, and bilateral leg pain due to edema. She has a history of heavy alcohol use (last drink 12/31/24), multiple transfusions, and no prior EGD. Today (01/13/25): * Underwent hemodialysis session TODAY, 2L fluid removed * Paracentesis site (RLQ) leaking clear fluid; paracentesis on 01/08 removed 2.6L straw-colored ascitic fluid. * Liver biopsy completed , no immediate complications. * Swelling of abdomen and liver improving post-HD and paracentesis. * Diet: ADVANCED FROM CLEAR LIQUID TO SOFT DIET., receiving Ensure High Protein PO TID. Started on IV Solu-Medrol based on Maddrey DF score of 40.4 indicating severe alcoholic hepatitis Tumor Markers * CEA 8.82 , AFP normal, LDH normal, CA-19-9 is less than 2 and CA-125 ELEVATED WITH 527 SUGGESTS POSSIBLE PERITONEAL CARCINOMATOSIS OR OVARIAN MALIGNANCY. Peritoneal Fluid (01/08) * WBC 801 (mononuclear predominance), RBC 3308, Glucose 106, Protein 3.1 ? Non- SBP ascites. Microbiology * Blood cultures: No growth . * Ascitic fluid: No growth. Imaging * CT Abdomen/Pelvis: Innumerable hepatic lesions replacing >50% liver parenchyma ? suspicious for malignancy/metastatic disease; cirrhotic morphology, moderate ascites, pelvic mass (fibroid vs endometrioma), left pleural effusion, anasarca. * MRI Abdomen/Pelvis: Limited, diffuse body wall edema, small pelvic ascites, pelvic mass 4.9 cm hypointense lesion. * US Paracentesis (01/08): 2.6L ascitic fluid removed, no complications. * US Liver Biopsy (01/12): Right hepatic lobe, diffusely heterogeneous, specimen sent for pathology. * CXR: Cardiomegaly with CHF, no effusion or consolidation. Objective vital signs Vital Sign Date Time Temp Pulse Resp B/P (MAP) Pulse Ox O2 Delivery O2 Flow Rate FiO2 01/13/25 14:00 93 01/13/25 13:45 10 103/39 (60) 89 01/13/25 08:00 Room Air* 0 21 01/13/25 07:00 98.1 98.1 Total Intake and Output 01/12/25 01/12/25 01/13/25 15:00 23:00 07:00 Intake Total 91.25 ml 196.50 ml 176.25 ml Output Total 2350 ml 450 ml Balance 91.25 ml -2153.50 ml -273.75 ml medications Current Medications Medications Dose Ordered Sig/Bárbara Route Start Time Stop Time Status Last Admin Dose Admin Ondansetron HCl 4 mg Q4HP PRN IV 01/07/25 17:15 01/07/25 19:24 4 MG Docusate Sodium 100 mg BIDPRN PRN PO 01/07/25 17:15 Nitroglycerin 0.4 mg Q5MINP PRN SL 01/07/25 17:15 Thiamine HCl 100 mg DAILY IV 01/09/25 10:00 01/13/25 12:25 100 MG Pantoprazole Sodium 40 mg BID IV 01/08/25 22:00 01/13/25 12:24 40 MG Lactulose 15 ml DAILY PO 01/10/25 10:00 01/13/25 12:24 15 ML Bumetanide 2 mg Q6HR IV 01/10/25 10:30 01/13/25 12:27 2 MG Midodrine 10 mg TID@0600,1200,1800 PO 01/11/25 12:00 01/13/25 12:27 10 MG Metolazone 15 mg DAILY PO 01/11/25 11:00 01/13/25 12:23 15 MG Norepinephrine Bitartrate 250 ml @ 3.75 mls/hr Q24H IV 01/11/25 18:15 01/11/25 18:28 3.75 MLS/HR Trazodone HCl 50 mg HS PO 01/12/25 22:00 01/12/25 21:20 50 MG Folic Acid 1 mg DAILY PO 01/12/25 10:00 01/13/25 12:23 1 MG Epoetin Gilbert-epbx 10,000 unit TUTHSA SC 01/12/25 21:00 01/12/25 21:16 10,000 UNIT Enteral Nutritional Formula 240 ml TIDWM PO 01/12/25 18:00 01/13/25 12:00 240 ML Ciprofloxacin 200 ml @ 200 mls/hr DAILY IV 01/13/25 10:00 01/13/25 12:24 200 MLS/HR Methylprednisolone Sodium Succinate 40 mg DAILY IV 01/14/25 10:00 Examination General: Chronically ill but alert, oriented 3. * Abdomen: Distended, fluid wave, RUQ tenderness, mild leakage from RLQ paracentesis site, liver palpable and tender. * Extremities: Edema improving post-HD. laboratory and microbiology Laboratory Tests 01/13/25 04:55 Test 01/13/25 04:55 Range/Units Serum Glucose 108 H 74-106 mg/dL Microbiology Date/Time Source Procedure Growth Status 01/11/25 09:37 Blood Blood Culture - Preliminary NO GROWTH AFTER 48 HOURS OF INCUBATION. Resulted 01/11/25 00:20 Nose MRSA Screen - Final Complete 01/08/25 15:00 Ascities Fluid Gram Stain - Final Resulted 01/08/25 15:00 Ascities Fluid Body Fluid Culture - Preliminary Resulted Problem List/Assessment/Plan Problem List/Assessment/Plan ssessment 1. Decompensated alcoholic cirrhosis with severe ascites, coagulopathy, and hyperbilirubinemia (MELD ~35)., Maddrey DF score is 40.4 which is poor prognosis 2. Multiple hepatic lesions, high suspicion for metastatic malignancy (CEA elevated, AFP normal), pathology pending. Elevated CA 125 of 527 suggests peritoneal or gynecological source, increased CEA suggest colorectal source. 3. Hepatorenal syndrome ongoing HD. 4. Severe ascites and anasarca improving with HD and paracentesis. 5. Acute on chronic GI bleed (melena) positive stool occult blood, anemia requiring transfusion. 6. Severe anemia secondary to chronic liver disease and GI bleeding. 7. Pelvic mass (fibroid vs endometrioma) needs FOAM CUTTING SUPERVISOR-oncology follow-up. 8. Severe malnutrition on clear liquids, receiving high-protein oral supplementation. Plan Gastrointestinal / Hepatic Continue IV methylprednisolone daily for alcohol hepatitis. * Continue monitoring post-liver biopsy for bleeding. * Discontinue octerotide * Maintain Pantoprazole IV BID for GI bleed prophylaxis. * Avoid hepatotoxic medications and opioids (alphonso. morphine). * Use non-opioid analgesics for RUQ pain. * Plan for EGD and colonoscopy once hemodynamically stable to evaluate varices and rule out colorectal malignancy. * Continue SBP prophylaxis with IV ciprofloxacin daily. * Monitor LFTs, INR, CBC daily. * Pending biopsy pathology to guide oncology referral. Ascites Reinforce RLQ site dressing, monitor for infection signs. * Continue fluid and sodium restriction. * Continue triple diuretics (Tolvaptan, Bumetanide, Metolazone) per nephrology. * Monitor paracentesis site for infection; apply dressing. * Repeat paracentesis PRN for recurrent tense ascites. Nutrition * Continue Ensure High Protein PO TID, soft diet; advance as tolerated. * Monitor intake and weight daily. * Consider nutrition consult and TPN if oral intake insufficient. Oncology * Early oncology consult once biopsy results available. * Evaluate for possible metastatic colorectal cancer vs HCC. Hematology * PRBC transfusion PRN to maintain Hgb >8.0. * Continue Epoetin Gilbert-epbx SC protocol. * Monitor platelets, INR daily. Infectious Disease * Continue IV antibiotics (ciprofloxacin) for SBP prophylaxis. * Monitor cultures. Case discussed in detail with the attending physician, including the clinical presentation, diagnostic workup, and comprehensive management plan. The patient was present for the discussion and demonstrated understanding of her condition and the proposed plan. Plan discussed with: Patient, Spouse Dietary Evaluation Review Comments: 1) Continue thiamin supplementation. Consider adding folic acid and multivitamin. 2) Encourage optimal PO intake 3) Advance to 2g Na 80g hepatic diet when medically feasible 4) Refer to outpatient RD for weight management 5) Follow-up with hepatology, gastroenterology, and nephrology 6) Follow-up with social worker psychiatric r/t ETOH dependency 7) Continue to monitor I&O, labs, and skin integrity Expected Outcomes/Goals: 1) appetite and labs to improve 2) GI symptoms to resolve 3) diet to advance 4) f/u in 3-5 days CC Plasma Assessment Blood Product Administration S: [id number] MILE LORA RESIDENT Jan 13, 2025 14:49
--- NOTE | 2025-01-13 17:45 | DVHPNRES ---
Progress Note Date Seen: Jan 13, 2025 Resident Creating Document: BRENDA HITCHCOCK RESIDENT Has the PT tested + for MRSA If YES, has PT been informed?: No Medical Necessity Reason Pt with a Central, PICC or Fol: Yes The following are medically ne: Central Line, Torres Catheter Subjective Review of Systems Patient is a 38-year-old female with past medical history of chronic severe anemia which required blood transfusions via before in June on August, uterine fibroids, chronic liver ascites who came to the ED with chief complaint of severe diffuse abdominal pain 8/10 in intensity, which radiates to the back, gradual increase in shortness of breath, and nausea since the past week. She complained of severe bloating and abdominal swelling since last Saturday, dry mouth, dry cough, dizziness, and bilateral leg pain due to edema. but he denies any hematemesis, headaches, diarrhea, dysuria, hematuria, but she complains her stool is darker than usual. Patient was supposed to follow-up with OBGYN for possible hysterectomy but did not. She states that she had no prior diagnosis of cirrhosis but was told during her June 2024 admission that she had liver and kidney damage. 01/11 - Patient seen and examined at the bedside. Reports feeling weak, IR placed tunneled catheter for dialysis. Dopamine started, patient did not tolerate, HR into 160s, decreased with vagal maneuvers. Discontinue dopamine. Continue diuresis. Radiologist consulted for liver biopsy. 01/12 - patient seen and examined, underwent HD last night 2.4 L taken out, underwent hemodialysis today, 2 L taken off. Patient is requiring Levophed during hemodialysis. Pending liver biopsy. 01/13 - patient underwent hemodialysis this morning. Midodrine increased to 15 mg TID. Right tunneled catheter intermittently bleeding, Dermabond in place. Objective vital signs Vital Sign Date Time Temp Pulse Resp B/P (MAP) Pulse Ox O2 Delivery O2 Flow Rate FiO2 01/13/25 16:00 77 01/13/25 15:40 86/40 01/13/25 13:45 10 89 01/13/25 08:00 Room Air* 0 21 01/13/25 07:00 98.1 98.1 Total Intake and Output 01/12/25 01/12/25 01/13/25 15:00 23:00 07:00 Intake Total 91.25 ml 196.50 ml 176.25 ml Output Total 2350 ml 450 ml Balance 91.25 ml -2153.50 ml -273.75 ml medications Current Medications Medications Dose Ordered Sig/Bárbara Route Start Time Stop Time Status Last Admin Dose Admin Ondansetron HCl 4 mg Q4HP PRN IV 01/07/25 17:15 01/07/25 19:24 4 MG Docusate Sodium 100 mg BIDPRN PRN PO 01/07/25 17:15 Nitroglycerin 0.4 mg Q5MINP PRN SL 01/07/25 17:15 Thiamine HCl 100 mg DAILY IV 01/09/25 10:00 01/13/25 12:25 100 MG Pantoprazole Sodium 40 mg BID IV 01/08/25 22:00 01/13/25 12:24 40 MG Lactulose 15 ml DAILY PO 01/10/25 10:00 01/13/25 12:24 15 ML Bumetanide 2 mg Q6HR IV 01/10/25 10:30 01/13/25 12:27 2 MG Metolazone 15 mg DAILY PO 01/11/25 11:00 01/13/25 12:23 15 MG Norepinephrine Bitartrate 250 ml @ 3.75 mls/hr Q24H IV 01/11/25 18:15 01/11/25 18:28 3.75 MLS/HR Trazodone HCl 50 mg HS PO 01/12/25 22:00 01/12/25 21:20 50 MG Folic Acid 1 mg DAILY PO 01/12/25 10:00 01/13/25 12:23 1 MG Epoetin Gilbert-epbx 10,000 unit TUTHSA SC 01/12/25 21:00 01/12/25 21:16 10,000 UNIT Enteral Nutritional Formula 240 ml TIDWM PO 01/12/25 18:00 01/13/25 12:00 240 ML Ciprofloxacin 200 ml @ 200 mls/hr DAILY IV 01/13/25 10:00 01/13/25 12:24 200 MLS/HR Methylprednisolone Sodium Succinate 40 mg DAILY IV 01/14/25 10:00 Midodrine 15 mg TID@0600,1200,1800 PO 01/13/25 18:00 Examination Morbidly obese female patient lying in the bed, appears sick, right tunneled controlled. General: Morbidly obese,, afebrile, palor, scleral icterus, Cardiovascular: Tachycardic but regular S1 and S2. No murmurs, gallops or rubs. No JVD elevation. Slightly resolving 2+ pedal pitting edema bilaterally Respiratory: Bilateral decreased air entry heard on auscultation, on RA Abdomen: Soft, distended, tender hypoactive bowel sounds, no rebound tenderness, no organomegaly, no masses Genitourinary: Deferred MSK/skin: Mobilizes 4 limbs. Skin is dry and warm Neurological: No motor, no sensitive deficits, normal speech. Pupils are isocoric and reactive. Psych/Mental Status: A/Ox3 laboratory and microbiology Laboratory Tests 01/13/25 04:55 Test 01/13/25 04:55 Range/Units Serum Glucose 108 H 74-106 mg/dL Microbiology Date/Time Source Procedure Growth Status 01/11/25 09:37 Blood Blood Culture - Preliminary NO GROWTH AFTER 48 HOURS OF INCUBATION. Resulted 01/11/25 00:20 Nose MRSA Screen - Final Complete 01/08/25 15:00 Ascities Fluid Gram Stain - Final Resulted 01/08/25 15:00 Ascities Fluid Body Fluid Culture - Preliminary Resulted Labs and/or images reviewed: Labs reviewed by me, Image(s) reviewed by me Problem List/Assessment/Plan Problem List/Assessment/Plan Generalized weakness secondary to acute blood loss anemia ? Upper GI bleed, esophageal varices Possible metastatic liver disease - primary unknown s/p liver biopsy 01/12 Acute on chronic decompensated liver failure - meld score 35 - MDF - 33.9 Chronic alcohol dependence Alcoholic withdrawal - CIWA less than 8 Discontinued IV octreotide drip IV pantoprazole b.i.d. GI consultation - IV Solu-Medrol 40 mg daily, DC octreotide IR consulted for liver biopsy-patient underwent liver biopsy 01/12 IV Levaquin switch to IV Cipro Midodrine 15 mg TID steroids ci d/t gi bleed no role of NAC alone w/o steriods Beta Whit cant be given given variceal bleed Acute Kidney Injury likely hepatorenal syndrome vs. pre-renal azotemia -FENA 0.3% requiring hemodialysis hypervolemic hypotonic hyponatremia possibly secondary to cirrhosis Anion gap metabolic acidosis secondary to lactic acid Oliguria nephrology consulted - IV Bumex 2 mg q.6 hourly, metolazone, HD 01/11, 01/12, 01/13 Radiology placed tunneled catheter today 01/11 Patient did not tolerate dopamine, heart rate into 160s Tolvaptan 30 mg daily Pelvic mass ? 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 This may represent an exophytic fibroid versus possible endometrioma. # Gallstones , cholelithiasis- outpatient follow-up # History of miscarriage SCDs Clear liquid diet R tunn cath 01/11 Avoid morphine Plan discussed with patient, at bedside in which all questions have been answered Goals of care discussed with the patient for more than 20 minutes, full code status Case discussed with Dr. Interiano Plan discussed with: Patient, Spouse My Orders My Orders Orders - BRENDA HITCHCOCK Procedure Category Date Status Time Ciprofloxacin PHA 01/13/25 In Process 400mg/200ml (Cipro Iv) 10:00 Midodrine Tablet PHA 01/13/25 In Process (Proamatine Tablet) 18:00 Dietary Evaluation Review Comments: 1) Continue thiamin supplementation. Consider adding folic acid and multivitamin. 2) Encourage optimal PO intake 3) Advance to 2g Na 80g hepatic diet when medically feasible 4) Refer to outpatient RD for weight management 5) Follow-up with hepatology, gastroenterology, and nephrology 6) Follow-up with oncology social work r/t ETOH dependency 7) Continue to monitor I&O, labs, and skin integrity Expected Outcomes/Goals: 1) appetite and labs to improve 2) GI symptoms to resolve 3) diet to advance 4) f/u in 3-5 days CC Plasma Assessment Blood Product Administration S: [id number] Date of Service: Jan 13, 2025 Billing Provider: GONZALO GREGORY MD Common Visit Codes: [id number] INP/OBS CARE(HIGH) BRENDA HITCHCOCK Jan 13, 2025 17:45 GONZALO GREGORY MD Jan 25, 2025 02:25
[2025-01-13] MEDS: MIDODRINE HCL 10 MG TAB PO SCH (17:55)
--- NOTE | 2025-01-13 19:29 | DVHPN2 ---
Progress Note Date Seen: Jan 13, 2025 Has the PT tested + for MRSA If YES, has PT been informed?: No Medical Necessity Reason Pt with a Central, PICC or Fol: Yes The following are medically ne: Central Line, Torres Catheter Subjective Patient reports: No new complaints Objective vital signs Vital Sign Date Time Temp Pulse Resp B/P (MAP) Pulse Ox O2 Delivery O2 Flow Rate FiO2 01/13/25 17:55 107/49 01/13/25 17:45 83 18 96 01/13/25 16:15 98.2 98.2 01/13/25 08:00 Room Air* 0 21 Total Intake and Output 01/12/25 01/12/25 01/13/25 15:00 23:00 07:00 Intake Total 91.25 ml 196.50 ml 180.00 ml Output Total 2350 ml 450 ml Balance 91.25 ml -2153.50 ml -270.00 ml medications Current Medications Medications Dose Ordered Sig/Bárbara Route Start Time Stop Time Status Last Admin Dose Admin Ondansetron HCl 4 mg Q4HP PRN IV 01/07/25 17:15 01/07/25 19:24 4 MG Docusate Sodium 100 mg BIDPRN PRN PO 01/07/25 17:15 Nitroglycerin 0.4 mg Q5MINP PRN SL 01/07/25 17:15 Thiamine HCl 100 mg DAILY IV 01/09/25 10:00 01/13/25 12:25 100 MG Pantoprazole Sodium 40 mg BID IV 01/08/25 22:00 01/13/25 12:24 40 MG Lactulose 15 ml DAILY PO 01/10/25 10:00 01/13/25 12:24 15 ML Bumetanide 2 mg Q6HR IV 01/10/25 10:30 01/13/25 17:55 2 MG Metolazone 15 mg DAILY PO 01/11/25 11:00 01/13/25 12:23 15 MG Norepinephrine Bitartrate 250 ml @ 3.75 mls/hr Q24H IV 01/11/25 18:15 01/11/25 18:28 3.75 MLS/HR Trazodone HCl 50 mg HS PO 01/12/25 22:00 01/12/25 21:20 50 MG Folic Acid 1 mg DAILY PO 01/12/25 10:00 01/13/25 12:23 1 MG Epoetin Gilbert-epbx 10,000 unit TUTHSA SC 01/12/25 21:00 01/12/25 21:16 10,000 UNIT Enteral Nutritional Formula 240 ml TIDWM PO 01/12/25 18:00 01/13/25 17:55 240 ML Ciprofloxacin 200 ml @ 200 mls/hr DAILY IV 01/13/25 10:00 01/13/25 12:24 200 MLS/HR Methylprednisolone Sodium Succinate 40 mg DAILY IV 01/14/25 10:00 Midodrine 15 mg TID@0600,1200,1800 PO 01/13/25 18:00 01/13/25 17:55 15 MG Examination: GENERAL:Abnormal, LUNGS:Abnormal, MSK:Abnormal, NEURO:Abnormal laboratory and microbiology Laboratory Tests 01/13/25 04:55 Test 01/13/25 04:55 Range/Units Serum Glucose 108 H 74-106 mg/dL Microbiology Date/Time Source Procedure Growth Status 01/11/25 09:37 Blood Blood Culture - Preliminary NO GROWTH AFTER 48 HOURS OF INCUBATION. Resulted 01/11/25 00:20 Nose MRSA Screen - Final Complete 01/08/25 15:00 Ascities Fluid Gram Stain - Final Resulted 01/08/25 15:00 Ascities Fluid Body Fluid Culture - Preliminary Resulted Problem List/Assessment/Plan Problem List/Assessment/Plan Acute kidney injury hepatorenal syndrome vs atn ckd II baseline etoh cirrhosis, liver masses severe anasarca and ascites anemia due to liver disease hyponatremia due to volume overload recs hd today dc tolvaptan as contraindicated in liver disease Continue diuretics albumin looks okay Increase midodrine dose Currently on Levophed Significantly volume overloaded Plan discussed with: Patient Dietary Evaluation Review Comments: 1) Continue thiamin supplementation. Consider adding folic acid and multivitamin. 2) Encourage optimal PO intake 3) Advance to 2g Na 80g hepatic diet when medically feasible 4) Refer to outpatient RD for weight management 5) Follow-up with hepatology, gastroenterology, and nephrology 6) Follow-up with forensic social worker r/t ETOH dependency 7) Continue to monitor I&O, labs, and skin integrity Expected Outcomes/Goals: 1) appetite and labs to improve 2) GI symptoms to resolve 3) diet to advance 4) f/u in 3-5 days CC Plasma Assessment Blood Product Administration S: [id number] EDEL HUANG MD Jan 13, 2025 19:29
[2025-01-14] VITALS (94 sets, daily range): BP systolic 87–126; BP diastolic 36–74; PULSE 74–91; RESP 9–22; TEMP 98.1–98.9; O2SAT 89–99
[2025-01-14 05:33] LABS: Hemoglobin 8.0 g/dL (12.2-16.2); Mean Corpuscular Hemoglobin 28.6 pg (28.0-32.0)
[2025-01-14 05:38] LABS: Hematocrit 24.1 % (36.0-46.0); Mean Corpuscular Volume 85.6 fL (80.0-100.0)
[2025-01-14 05:44] LABS: Anion Gap 11 (5-15); Carbon Dioxide 25 mmol/L (20-31); Chloride 98 mmol/L (98-107); Potassium 3.9 mmol/L (3.5-5.1)
[2025-01-14 05:50] LABS: Magnesium 2.0 mg/dL (1.6-2.6)
[2025-01-14 05:54] LABS: BUN/Creatinine Ratio 5.5 (10.0-20.0)
[2025-01-14 05:56] LABS: Blood Urea Nitrogen 34 mg/dL (9-23); Calcium 8.3 mg/dL (8.7-10.4); Glucose 118 mg/dL (74-106); Sodium 134 mmol/L (136-145)
[2025-01-14 06:22] LABS: Ovalocytes FEW; Total Cells Counted 100.0 (100)
[2025-01-14 06:23] LABS: Anisocytosis Slight
[2025-01-14] MEDS: methylPREDNISolone SOD SUCC 40 MG/ML VL IV SCH (09:43)
[2025-01-14 11:14] LABS: Alanine Aminotransferase 21.0 U/L (7-40); Alkaline Phosphatase 62.0 U/L (46-116)
[2025-01-14 11:25] LABS: Albumin 3.2 g/dL (3.2-4.8); Bilirubin, Direct 7.9 mg/dL (<0.3); Bilirubin, Total 11.5 mg/dL (0.2-1.0)
[2025-01-14 11:29] LABS: Total Protein 6.8 g/dL (5.7-8.2)
[2025-01-14] MEDS: phytonadione 2.5 MG in SODIUM CHL 0.9% 50 ML IV ONE (11:30)
--- NOTE | 2025-01-14 11:42 | DVHPN2 ---
Progress Note Date Seen: Jan 14, 2025 Resident Creating Document: MILE LORA RESIDENT Has the PT tested + for MRSA If YES, has PT been informed?: No Medical Necessity Reason Pt with a Central, PICC or Fol: Yes The following are medically ne: Central Line, Torres Catheter Subjective Review of Systems Today's updates The patient remains hemodynamically unstable with increased vasopressor requirement, now on 6 mcg/minute of norepinephrine Levophed. Hemodialysis completed yesterday, BUN creatinine remains elevated today. Reports no nausea, vomiting and is tolerating advanced soft diet. Had 2 bowel movements yesterday, no GI bleeding or melena. Ammonia increased to 29 from less than 10 earlier, though no overt encephalopathy noted. Paracentesis site is improved, minimal leakage. Abdominal cramps improving, no guarding or rigidity. Reports numbness and tingling in both lower extremities B12 level ordered. Liver biopsy results still pending. Ordered an acute hepatitis panel One time IV vitamin K was given due to coagulopathy and bleeding risk. OBGYN consult placed for elevated CA 125 and unclear pelvic mass source. Objective vital signs Vital Sign Date Time Temp Pulse Resp B/P (MAP) Pulse Ox O2 Delivery O2 Flow Rate FiO2 01/14/25 10:15 84 13 99/48 (65) 98 01/14/25 09:00 98.1 98.1 01/14/25 08:00 Nasal Cannula* 2 28 Total Intake and Output 01/13/25 01/13/25 01/14/25 15:00 23:00 07:00 Intake Total 230.00 ml 235.0 ml 275.00 ml Output Total 3000 ml 325 ml 300 ml Balance -2770.00 ml -90.0 ml -25.00 ml medications Current Medications Medications Dose Ordered Sig/Bárbara Route Start Time Stop Time Status Last Admin Dose Admin Ondansetron HCl 4 mg Q4HP PRN IV 01/07/25 17:15 01/07/25 19:24 4 MG Docusate Sodium 100 mg BIDPRN PRN PO 01/07/25 17:15 Nitroglycerin 0.4 mg Q5MINP PRN SL 01/07/25 17:15 Thiamine HCl 100 mg DAILY IV 01/09/25 10:00 01/14/25 09:43 100 MG Pantoprazole Sodium 40 mg BID IV 01/08/25 22:00 01/14/25 09:42 40 MG Lactulose 15 ml DAILY PO 01/10/25 10:00 01/14/25 09:43 15 ML Bumetanide 2 mg Q6HR IV 01/10/25 10:30 01/14/25 06:05 2 MG Metolazone 15 mg DAILY PO 01/11/25 11:00 01/14/25 09:44 15 MG Norepinephrine Bitartrate 250 ml @ 3.75 mls/hr Q24H IV 01/11/25 18:15 01/14/25 03:52 7.5 MLS/HR Trazodone HCl 50 mg HS PO 01/12/25 22:00 01/13/25 21:59 50 MG Folic Acid 1 mg DAILY PO 01/12/25 10:00 01/14/25 09:43 1 MG Epoetin Gilbert-epbx 10,000 unit TUTHSA SC 01/12/25 21:00 01/14/25 09:43 10,000 UNIT Enteral Nutritional Formula 240 ml TIDWM PO 01/12/25 18:00 01/14/25 08:00 240 ML Ciprofloxacin 200 ml @ 200 mls/hr DAILY IV 01/13/25 10:00 01/14/25 09:46 200 MLS/HR Methylprednisolone Sodium Succinate 40 mg DAILY IV 01/14/25 10:00 01/14/25 09:43 40 MG Midodrine 15 mg TID@0600,1200,1800 PO 01/13/25 18:00 01/14/25 06:06 15 MG Examination General-awake, alert, cooperative Abdomen -soft, nontender, nondistended, right lower quadrant paracentesis site dry, no leakage or erythema. Extremities-no edema laboratory and microbiology Laboratory Tests 01/14/25 05:05 Test 01/14/25 05:05 Range/Units Serum Glucose 118 H 74-106 mg/dL Microbiology Date/Time Source Procedure Growth Status 01/11/25 09:37 Blood Blood Culture - Preliminary NO GROWTH AFTER 72 HOURS OF INCUBATION. Resulted 01/11/25 00:20 Nose MRSA Screen - Final Complete 01/08/25 15:00 Ascities Fluid Gram Stain - Final Resulted 01/08/25 15:00 Ascities Fluid Body Fluid Culture - Preliminary Resulted Problem List/Assessment/Plan Problem List/Assessment/Plan Assessment 1. Decompensated alcoholic cirrhosis with severe ascites, coagulopathy, and hyperbilirubinemia (MELD ~35)., Maddrey DF score is 40.4 which is poor prognosis/ONGOING IV CORTICOSTEROIDS 2. Multiple hepatic lesions, high suspicion for metastatic malignancy (CEA elevated, AFP normal), pathology pending. Elevated CA 125 of 527 suggests peritoneal or gynecological source, increased CEA suggest colorectal source./awaiting OBGYN input 3. Hepatorenal syndrome ongoing HD. 4. Severe ascites and anasarca improving with HD and paracentesis. 5. Acute on chronic GI bleed (melena) positive stool occult blood, anemia requiring transfusion. 6. Severe anemia secondary to chronic liver disease and GI bleeding./anemia of chronic disease/hemoglobin stable at 8.0 7. 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 8. Severe malnutrition on clear liquids, receiving high-protein oral supplementation. 9. Coagulopathy of liver disease/elevated INR PT and APTT/given vitamin K IV once/monitor for bleeding Plan Gastrointestinal / Hepatic Continue IV methylprednisolone daily for alcohol hepatitis. * Continue monitoring post-liver biopsy for bleeding. * Discontinue octerotide * Maintain Pantoprazole IV BID for GI bleed prophylaxis. * Avoid hepatotoxic medications and opioids (alphonso. morphine). * Use non-opioid analgesics for RUQ pain. Continue lactulose. * Plan for EGD and colonoscopy once hemodynamically stable to evaluate varices and rule out colorectal malignancy. * Continue SBP prophylaxis with IV ciprofloxacin daily. * Monitor LFTs, INR, CBC daily. * Pending biopsy pathology to guide oncology referral. OBGYN consult for fell pelvic mass, CA 125 correlation Ascites Reinforce RLQ site dressing, monitor for infection signs. * Continue fluid and sodium restriction. * Continue triple diuretics (Tolvaptan, Bumetanide, Metolazone) per nephrology. * Monitor paracentesis site for infection; apply dressing. * Repeat paracentesis PRN for recurrent tense ascites. Nutrition * Continue Ensure High Protein PO TID, soft diet; advance as tolerated. * Monitor intake and weight daily. * Consider nutrition consult and TPN if oral intake insufficient. Oncology * Early oncology consult once biopsy results available. * Evaluate for possible metastatic colorectal cancer vs HCC. Hematology * PRBC transfusion PRN to maintain Hgb >8.0. * Continue Epoetin Gilbert-epbx SC protocol. * Monitor platelets, INR daily. Infectious Disease * Continue IV antibiotics (ciprofloxacin) for SBP prophylaxis. * Monitor cultures. Case discussed in detail with the attending physician, including the clinical presentation, diagnostic workup, and comprehensive management plan. The patient was present for the discussion and demonstrated understanding of her condition and the proposed plan. Plan discussed with: Patient My Orders My Orders Orders - MILE LORA RESIDENT Procedure Category Date Status Time Advance Diet As RAFAEL 01/13/25 In Process Tolerated 14:53 Soft Diet DIET 01/14/25 Transmitted Breakfast Phytonadione (Vitamin PHA 01/14/25 Logged K) 11:30 * Senior Business Development Analyst Consultation CONS 01/14/25 Transmitted 11:26 Dietary Evaluation Review Comments: 1) Continue thiamin supplementation. Consider adding folic acid and multivitamin. 2) Encourage optimal PO intake 3) Advance to 2g Na 80g hepatic diet when medically feasible 4) Refer to outpatient RD for weight management 5) Follow-up with hepatology, gastroenterology, and nephrology 6) Follow-up with manager social media r/t ETOH dependency 7) Continue to monitor I&O, labs, and skin integrity Expected Outcomes/Goals: 1) appetite and labs to improve 2) GI symptoms to resolve 3) diet to advance 4) f/u in 3-5 days CC Plasma Assessment Blood Product Administration S: [id number] MILE LORA RESIDENT Jan 14, 2025 11:42
--- NOTE | 2025-01-14 14:36 | DVHPN2 ---
Progress Note Date Seen: Jan 14, 2025 Has the PT tested + for MRSA If YES, has PT been informed?: No Medical Necessity Reason Pt with a Central, PICC or Fol: Yes The following are medically ne: Central Line, Torres Catheter Subjective Patient reports: Feels better Objective vital signs Vital Sign Date Time Temp Pulse Resp B/P (MAP) Pulse Ox O2 Delivery O2 Flow Rate FiO2 01/14/25 14:15 98.8 80 17 115/65 (82) 96 98.8 01/14/25 08:00 Nasal Cannula* 2 28 Total Intake and Output 01/13/25 01/13/25 01/14/25 15:00 23:00 07:00 Intake Total 230.00 ml 235.0 ml 275.00 ml Output Total 3000 ml 325 ml 300 ml Balance -2770.00 ml -90.0 ml -25.00 ml medications Current Medications Medications Dose Ordered Sig/Bárbara Route Start Time Stop Time Status Last Admin Dose Admin Ondansetron HCl 4 mg Q4HP PRN IV 01/07/25 17:15 01/07/25 19:24 4 MG Docusate Sodium 100 mg BIDPRN PRN PO 01/07/25 17:15 Nitroglycerin 0.4 mg Q5MINP PRN SL 01/07/25 17:15 Thiamine HCl 100 mg DAILY IV 01/09/25 10:00 01/14/25 09:43 100 MG Pantoprazole Sodium 40 mg BID IV 01/08/25 22:00 01/14/25 09:42 40 MG Lactulose 15 ml DAILY PO 01/10/25 10:00 01/14/25 09:43 15 ML Bumetanide 2 mg Q6HR IV 01/10/25 10:30 01/14/25 12:19 2 MG Metolazone 15 mg DAILY PO 01/11/25 11:00 01/14/25 09:44 15 MG Norepinephrine Bitartrate 250 ml @ 3.75 mls/hr Q24H IV 01/11/25 18:15 01/14/25 03:52 7.5 MLS/HR Trazodone HCl 50 mg HS PO 01/12/25 22:00 01/13/25 21:59 50 MG Folic Acid 1 mg DAILY PO 01/12/25 10:00 01/14/25 09:43 1 MG Epoetin Gilbert-epbx 10,000 unit TUTHSA SC 01/12/25 21:00 01/14/25 09:43 10,000 UNIT Enteral Nutritional Formula 240 ml TIDWM PO 01/12/25 18:00 01/14/25 12:19 240 ML Ciprofloxacin 200 ml @ 200 mls/hr DAILY IV 01/13/25 10:00 01/14/25 09:46 200 MLS/HR Methylprednisolone Sodium Succinate 40 mg DAILY IV 01/14/25 10:00 01/14/25 09:43 40 MG Midodrine 15 mg TID@0600,1200,1800 PO 01/13/25 18:00 01/14/25 12:18 15 MG Examination: GENERAL:Abnormal, CVS:Abnormal, SKIN:Abnormal, NEURO:Abnormal laboratory and microbiology Laboratory Tests 01/14/25 05:05 Test 01/14/25 05:05 Range/Units Serum Glucose 118 H 74-106 mg/dL Microbiology Date/Time Source Procedure Growth Status 01/11/25 09:37 Blood Blood Culture - Preliminary NO GROWTH AFTER 72 HOURS OF INCUBATION. Resulted 01/11/25 00:20 Nose MRSA Screen - Final Complete 01/08/25 15:00 Ascities Fluid Gram Stain - Final Complete 01/08/25 15:00 Ascities Fluid Body Fluid Culture - Final Complete Problem List/Assessment/Plan Problem List/Assessment/Plan 39 year female PMH etoh abuse p/w weakness Acute kidney injury hepatorenal syndrome vs hemodynamic ckd II etoh cirrhosis, liver masses severe anasarca and ascites anemia due to liver disease hyponatremia due to volume overload thrombocytopenia severe anasarca HD tomorrow, no heparin PRN PRBC to keep hb > 8.0 diuretics- bumex and metolazone epogen 3x a week monitor UOP fluid restriction midodrine po to keep map> 65 levophed keep MAP > 65 poor overall prognosis Plan discussed with: Patient Dietary Evaluation Review Comments: 1) Continue thiamin supplementation. Consider adding folic acid and multivitamin. 2) Encourage optimal PO intake 3) Advance to 2g Na 80g hepatic diet when medically feasible 4) Refer to outpatient RD for weight management 5) Follow-up with hepatology, gastroenterology, and nephrology 6) Follow-up with social media manager r/t ETOH dependency 7) Continue to monitor I&O, labs, and skin integrity Expected Outcomes/Goals: 1) appetite and labs to improve 2) GI symptoms to resolve 3) diet to advance 4) f/u in 3-5 days Critical Care Time (mins): 35 CC Plasma Assessment Blood Product Administration S: [id number] EDMOND MAS MD Jan 14, 2025 14:36
--- NOTE | 2025-01-14 18:14 | DVHPNRES ---
Progress Note Date Seen: Jan 14, 2025 Resident Creating Document: BRENDA HITCHCOCK RESIDENT Has the PT tested + for MRSA If YES, has PT been informed?: No Medical Necessity Reason Pt with a Central, PICC or Fol: Yes The following are medically ne: Central Line, Torres Catheter Subjective Review of Systems Patient is a 38-year-old female with past medical history of chronic severe anemia which required blood transfusions via before in June on August, uterine fibroids, chronic liver ascites who came to the ED with chief complaint of severe diffuse abdominal pain 8/10 in intensity, which radiates to the back, gradual increase in shortness of breath, and nausea since the past week. She complained of severe bloating and abdominal swelling since last Saturday, dry mouth, dry cough, dizziness, and bilateral leg pain due to edema. but he denies any hematemesis, headaches, diarrhea, dysuria, hematuria, but she complains her stool is darker than usual. Patient was supposed to follow-up with OBGYN for possible hysterectomy but did not. She states that she had no prior diagnosis of cirrhosis but was told during her June 2024 admission that she had liver and kidney damage. 01/11 - Patient seen and examined at the bedside. Reports feeling weak, IR placed tunneled catheter for dialysis. Dopamine started, patient did not tolerate, HR into 160s, decreased with vagal maneuvers. Discontinue dopamine. Continue diuresis. Radiologist consulted for liver biopsy. 01/12 - patient seen and examined, underwent HD last night 2.4 L taken out, underwent hemodialysis today, 2 L taken off. Patient is requiring Levophed during hemodialysis. Pending liver biopsy. 01/13 - patient underwent hemodialysis this morning. Midodrine increased to 15 mg TID. Right tunneled catheter intermittently bleeding, Dermabond in place. 01/14-patient seen and examined, right tunneled catheter clotted blood seen. Diet increased to soft diet. Echocardiogram ordered, Levophed 6 Objective vital signs Vital Sign Date Time Temp Pulse Resp B/P (MAP) Pulse Ox O2 Delivery O2 Flow Rate FiO2 01/14/25 18:00 117/67 01/14/25 17:00 98.4 80 17 95 98.4 01/14/25 08:00 Nasal Cannula* 2 28 Total Intake and Output 01/13/25 01/13/25 01/14/25 15:00 23:00 07:00 Intake Total 230.00 ml 235.0 ml 275.00 ml Output Total 3000 ml 325 ml 300 ml Balance -2770.00 ml -90.0 ml -25.00 ml medications Current Medications Medications Dose Ordered Sig/Bárbara Route Start Time Stop Time Status Last Admin Dose Admin Ondansetron HCl 4 mg Q4HP PRN IV 01/07/25 17:15 01/07/25 19:24 4 MG Docusate Sodium 100 mg BIDPRN PRN PO 01/07/25 17:15 Nitroglycerin 0.4 mg Q5MINP PRN SL 01/07/25 17:15 Thiamine HCl 100 mg DAILY IV 01/09/25 10:00 01/14/25 09:43 100 MG Pantoprazole Sodium 40 mg BID IV 01/08/25 22:00 01/14/25 09:42 40 MG Lactulose 15 ml DAILY PO 01/10/25 10:00 01/14/25 09:43 15 ML Bumetanide 2 mg Q6HR IV 01/10/25 10:30 01/14/25 18:00 2 MG Metolazone 15 mg DAILY PO 01/11/25 11:00 01/14/25 09:44 15 MG Norepinephrine Bitartrate 250 ml @ 3.75 mls/hr Q24H IV 01/11/25 18:15 01/14/25 03:52 7.5 MLS/HR Trazodone HCl 50 mg HS PO 01/12/25 22:00 01/13/25 21:59 50 MG Folic Acid 1 mg DAILY PO 01/12/25 10:00 01/14/25 09:43 1 MG Epoetin Gilbert-epbx 10,000 unit TUTHSA SC 01/12/25 21:00 01/14/25 09:43 10,000 UNIT Enteral Nutritional Formula 240 ml TIDWM PO 01/12/25 18:00 01/14/25 12:19 240 ML Ciprofloxacin 200 ml @ 200 mls/hr DAILY IV 01/13/25 10:00 01/14/25 09:46 200 MLS/HR Methylprednisolone Sodium Succinate 40 mg DAILY IV 01/14/25 10:00 01/14/25 09:43 40 MG Midodrine 15 mg TID@0600,1200,1800 PO 01/13/25 18:00 01/14/25 12:18 15 MG Examination Morbidly obese female patient lying in the bed, appears sick, right tunneled controlled. General: Morbidly obese,, afebrile, palor, scleral icterus, Cardiovascular: Tachycardic but regular S1 and S2. No murmurs, gallops or rubs. No JVD elevation. Slightly resolving 2+ pedal pitting edema bilaterally Respiratory: Bilateral decreased air entry heard on auscultation, on RA Abdomen: Soft, distended, tender hypoactive bowel sounds, no rebound tenderness, no organomegaly, no masses Genitourinary: Deferred MSK/skin: Mobilizes 4 limbs. Skin is dry and warm Neurological: No motor, no sensitive deficits, normal speech. Pupils are isocoric and reactive. Psych/Mental Status: A/Ox3 laboratory and microbiology Laboratory Tests 01/14/25 05:05 Test 01/14/25 05:05 Range/Units Serum Glucose 118 H 74-106 mg/dL Microbiology Date/Time Source Procedure Growth Status 01/11/25 09:37 Blood Blood Culture - Preliminary NO GROWTH AFTER 72 HOURS OF INCUBATION. Resulted 01/11/25 00:20 Nose MRSA Screen - Final Complete 01/08/25 15:00 Ascities Fluid Gram Stain - Final Complete 01/08/25 15:00 Ascities Fluid Body Fluid Culture - Final Complete Labs and/or images reviewed: Labs reviewed by me, Image(s) reviewed by me Problem List/Assessment/Plan Problem List/Assessment/Plan Generalized weakness secondary to acute blood loss anemia ? Upper GI bleed, esophageal varices Hypotension requiring pressor Possible metastatic liver disease - primary unknown s/p liver biopsy 01/12 Acute on chronic decompensated liver failure - meld score 35 - MDF - 33.9 Chronic alcohol dependence Alcoholic withdrawal - CIWA less than 8 Discontinued IV octreotide drip IV pantoprazole b.i.d. GI consultation - DC IV Solu-Medrol 40 mg daily, DC octreotide IR consulted for liver biopsy-patient underwent liver biopsy 01/12 IV Levaquin switch to IV Cipro Midodrine 15 mg TID Started hydrocortisone 50 mg q.6 hours Patient requiring pressors; Levophed 6 mcg no role of NAC alone w/o steriods Beta Whit cant be given given variceal bleed Acute Kidney Injury likely hepatorenal syndrome vs. pre-renal azotemia -FENA 0.3% requiring hemodialysis hypervolemic hypotonic hyponatremia possibly secondary to cirrhosis Anion gap metabolic acidosis secondary to lactic acid Oliguria nephrology consulted - IV Bumex 2 mg q.6 hourly, metolazone, HD 01/11, 01/12, 01/13, hemodialysis tomorrow Radiology placed tunneled catheter today 01/11 Patient did not tolerate dopamine, heart rate into 160s Tolvaptan 30 mg daily Pelvic mass ? 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 This may represent an exophytic fibroid versus possible endometrioma. CA 125 elevated # Gallstones , cholelithiasis- outpatient follow-up # History of miscarriage SCDs Clear liquid diet R tunn cath 01/11 Drips: Levophed 6 Avoid morphine Plan discussed with patient, at bedside in which all questions have been answered Goals of care discussed with the patient for more than 20 minutes, full code status Case discussed with Dr. Interiano Plan discussed with: Patient Dietary Evaluation Review Comments: 1) Continue thiamin supplementation. Consider adding folic acid and multivitamin. 2) Encourage optimal PO intake 3) Advance to 2g Na 80g hepatic diet when medically feasible 4) Refer to outpatient RD for weight management 5) Follow-up with hepatology, gastroenterology, and nephrology 6) Follow-up with social worker masters r/t ETOH dependency 7) Continue to monitor I&O, labs, and skin integrity Expected Outcomes/Goals: 1) appetite and labs to improve 2) GI symptoms to resolve 3) diet to advance 4) f/u in 3-5 days CC Plasma Assessment Blood Product Administration S: [id number] Date of Service: Jan 14, 2025 Billing Provider: GONZALO GREGORY MD Common Visit Codes: [id number] CARE 30-74 MIN BRENDA HITCHCOCK RESIDENT Jan 14, 2025 18:14 GONZALO GREGORY MD Jan 25, 2025 02:58
[2025-01-14] MEDS: HYDROCORTISONE SOD SUCC 100 MG/2ML INJ VIAL IV SCH (19:10)
--- NOTE | 2025-01-14 23:24 | DVHSR ---
APPROVED REPORT EXAM: Two-dimensional and M-mode echocardiogram with Doppler and color Doppler. Blood Pressure: 99/48 mmHg INDICATION ?EF ?CHF RISK FACTORS Obesity: Height: 5' 8", Weight: 259 DIMENSIONS LVDd5.4 (3.8-5.7cm)LA (2D)4.0 (1.9-4.0cm)Aortic Root2.5 (2.0-3.7cm) LVDs4.0 (2.5-4.0cm)LA (MM) (1.9-4.0cm)Aortic Cusp Exc1.9 (1.5-2.0cm) EF (%) 53.0 (55-70%)Rt. Atrium3.4 (1.9-4.0cm)Asc. Aorta cm IVSd0.8 (0.7-1.1cm)RV (D) (1.8-2.4cm) PWd0.9 (0.7-1.1cm) Mitral Valve MitralMitral Stenosis E wave1.50m/sMV Mean GR.mmHg A wave0.70m/sMV Peak GR.mmHg E/A ratio2.12D MVAcm2 Aortic Valve Aortic ValveAortic Stenosis V11.50m/Ace Mean GR.12mmHg V22.50m/Ace Peak GR.26mmHg LVOT Diameter2.1 (1.8-2.4cm)Doppler AVA2.08cm2 Pulmonic Valve V21.00m/s Tricuspid Valve TR Velocity2.80m/s [id number] Conclusion LV EF IS 60% AND IS NORMAL NORMAL VALVES NORMAL RV FUNCTION NO EFFUSION RVSP IS 40 MM OF HG AND IS BORDERLINE HIGH MILD PULMONARY HYPERTENSION
[2025-01-15] VITALS (95 sets, daily range): BP systolic 89–125; BP diastolic 40–66; PULSE 61–82; RESP 8–21; TEMP 98–98.6; O2SAT 89–98
[2025-01-15 06:32] LABS: Alanine Aminotransferase 20 U/L (7-40); Alkaline Phosphatase 67 U/L (46-116); Anion Gap 11 (5-15); Carbon Dioxide 24 mmol/L (20-31); Potassium 3.9 mmol/L (3.5-5.1)
[2025-01-15 06:33] LABS: Hematocrit 25.3 % (36.0-46.0); Mean Corpuscular Volume 85.2 fL (80.0-100.0)
[2025-01-15 06:35] LABS: BUN/Creatinine Ratio 5.6 (10.0-20.0); Hemoglobin 8.5 g/dL (12.2-16.2); Mean Corpuscular Hemoglobin 28.7 pg (28.0-32.0); Nucleated Red Blood Cells % 0.2 %
[2025-01-15 06:52] LABS: Albumin 3.1 g/dL (3.2-4.8); Bilirubin, Total 11.0 mg/dL (0.2-1.0); Blood Urea Nitrogen 39 mg/dL (9-23); Calcium 8.6 mg/dL (8.7-10.4); Chloride 98 mmol/L (98-107); Glucose 154 mg/dL (74-106); Sodium 133 mmol/L (136-145); Total Protein 7.0 g/dL (5.7-8.2)
[2025-01-15 07:08] LABS: Magnesium 1.9 mg/dL (1.6-2.6)
[2025-01-15] MEDS: predniSONE 20 MG TAB PO ONE (12:30)
[2025-01-15 13:07] LABS: Anti-Centromere B Antibody 0.3 AI (0.0-0.9); Anti-Jo-1 Antibody <0.2 AI (0.0-0.9); Anti-dsDNA Antibody <1 IU/mL (0-9); Antichromatin Antibody <0.2 AI (0.0-0.9); Antiscleroderma-70 Antibody <0.2 AI (0.0-0.9); Sjogren's Anti-SS-A Antibody <0.2 AI (0.0-0.9); Sjogren's Anti-SS-B Antibody <0.2 AI (0.0-0.9)
[2025-01-15] MEDS: ALBUMIN 25% 100 ML IV ONE (14:35)
[2025-01-15] MEDS: SODIUM CHL 0.9% 1000 ML BAG XX ONE (15:57)
--- NOTE | 2025-01-15 16:28 | DVHPN2 ---
Progress Note Date Seen: Jan 15, 2025 Resident Creating Document: MILE LORA RESIDENT Has the PT tested + for MRSA If YES, has PT been informed?: No Medical Necessity Reason Pt with a Central, PICC or Fol: Yes The following are medically ne: Central Line, Torres Catheter Subjective Review of Systems The patient remains admitted in the ICU for ongoing management of acute on chronic liver failure with underlying decompensated cirrhosis, complicated by hyperbilirubinemia, hepatic encephalopathy risk, ascites post paracentesis, anemia of chronic disease, thrombocytopenia, ESRD on hemodialysis. Today's progress- Undergoing scheduled hemodialysis today Attempting to wean off levo. Echocardiogram was normal. Antibiotics continuing with IV ciprofloxacin for SBP prophylaxis. Steroid regimen adjustment discontinued methylprednisolone IV started prednisolone 40 mg p.o. and hydrocortisone sodium 50 mg IV q.6h for possible adrenal support in advanced liver disease. Complement levels low autoimmune workup negative and hepatitis BC serologies negative. Hemoglobin stable at 8.5 LFTs trending down but total bilirubin increased to 11, direct component elevated. Ammonia increased from 29-50 since yesterday. Diet advanced to soft diet, tolerating without nausea or vomiting. Objective vital signs Vital Sign Date Time Temp Pulse Resp B/P (MAP) Pulse Ox O2 Delivery O2 Flow Rate FiO2 01/15/25 16:00 98.0 73 16 106/51 (69) 94 98.0 01/15/25 08:00 Nasal Cannula* 2 28 Total Intake and Output 01/14/25 01/14/25 01/15/25 15:00 23:00 07:00 Intake Total 290.00 ml 303.75 ml 183.75 ml Output Total 550 ml 600 ml Balance 290.00 ml -246.25 ml -416.25 ml medications Current Medications Medications Dose Ordered Sig/Bárbara Route Start Time Stop Time Status Last Admin Dose Admin Ondansetron HCl 4 mg Q4HP PRN IV 01/07/25 17:15 01/07/25 19:24 4 MG Docusate Sodium 100 mg BIDPRN PRN PO 01/07/25 17:15 Nitroglycerin 0.4 mg Q5MINP PRN SL 01/07/25 17:15 Thiamine HCl 100 mg DAILY IV 01/09/25 10:00 01/15/25 10:02 100 MG Pantoprazole Sodium 40 mg BID IV 01/08/25 22:00 01/15/25 10:02 40 MG Lactulose 15 ml DAILY PO 01/10/25 10:00 01/15/25 10:02 15 ML Bumetanide 2 mg Q6HR IV 01/10/25 10:30 01/15/25 11:39 2 MG Metolazone 15 mg DAILY PO 01/11/25 11:00 01/15/25 10:11 15 MG Norepinephrine Bitartrate 250 ml @ 3.75 mls/hr Q24H IV 01/11/25 18:15 01/15/25 13:22 7.5 MLS/HR Trazodone HCl 50 mg HS PO 01/12/25 22:00 01/14/25 22:06 50 MG Folic Acid 1 mg DAILY PO 01/12/25 10:00 01/15/25 10:03 1 MG Epoetin Gilbert-epbx 10,000 unit TUTHSA SC 01/12/25 21:00 01/14/25 09:43 10,000 UNIT Ciprofloxacin 200 ml @ 200 mls/hr DAILY IV 01/13/25 10:00 01/15/25 10:03 200 MLS/HR Midodrine 15 mg TID@0600,1200,1800 PO 01/13/25 18:00 01/15/25 11:38 15 MG Hydrocortisone Sodium Succinate 50 mg Q6HR IV 01/14/25 18:15 01/15/25 11:39 50 MG Prednisone 40 mg DAILY PO 01/16/25 10:00 Examination General-ill appearing but alert and oriented Abdomen soft, nondistended,, no guarding or rebound Liver nonpalpable H, marked jaundice. Spleen nonpalpable. Stool last bowel movement yesterday, soft. laboratory and microbiology Laboratory Tests 01/15/25 05:02 Test 01/15/25 05:02 Range/Units Serum Glucose 154 H 74-106 mg/dL Microbiology Date/Time Source Procedure Growth Status 01/11/25 09:37 Blood Blood Culture - Preliminary NO GROWTH AFTER 72 HOURS OF INCUBATION. Resulted 01/11/25 00:20 Nose MRSA Screen - Final Complete 01/08/25 15:00 Ascities Fluid Gram Stain - Final Complete 01/08/25 15:00 Ascities Fluid Body Fluid Culture - Final Complete Problem List/Assessment/Plan Problem List/Assessment/Plan Assessment 1. Decompensated alcoholic cirrhosis with severe ascites, coagulopathy, and hyperbilirubinemia (MELD ~35)., Maddrey DF score is 40.4 which is poor prognosis/ONGOING IV CORTICOSTEROIDS 2. Multiple hepatic lesions, high suspicion for metastatic malignancy (CEA elevated, AFP normal), pathology pending. Elevated CA 125 of 527 suggests peritoneal or gynecological source, increased CEA suggest colorectal source./awaiting OBGYN input 3. Hepatorenal syndrome ongoing HD. 4. Severe ascites and anasarca improving with HD and paracentesis. 5. Acute on chronic GI bleed (melena) positive stool occult blood, anemia requiring transfusion. 6. Severe anemia secondary to chronic liver disease and GI bleeding./anemia of chronic disease/hemoglobin stable at 8.0 7. 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 8. Severe malnutrition on clear liquids, receiving high-protein oral supplementation. 9. Coagulopathy of liver disease/elevated INR PT and APTT/given vitamin K IV once/monitor for bleeding Plan Gastrointestinal / Hepatic Continue IV hydrocortisone sodium succinate 50 mg IV q.6h for maintaining blood pressure and prednisolone 40 mg p.o. daily daily for alcohol hepatitis. * Continue monitoring post-liver biopsy for bleeding. * Discontinue octerotide * Maintain Pantoprazole IV BID for GI bleed prophylaxis. * Avoid hepatotoxic medications and opioids (alphonso. morphine). * Use non-opioid analgesics for RUQ pain. Continue lactulose. * Plan for EGD and colonoscopy once hemodynamically stable to evaluate varices and rule out colorectal malignancy. * Continue SBP prophylaxis with IV ciprofloxacin daily. * Monitor LFTs, INR, CBC daily. * Pending biopsy pathology to guide oncology referral. OBGYN consult for fell pelvic mass, CA 125 correlation Ascites Reinforce RLQ site dressing, monitor for infection signs. * Continue fluid and sodium restriction. * Continue triple diuretics (Tolvaptan, Bumetanide, Metolazone) per nephrology. * Monitor paracentesis site for infection; apply dressing. * Repeat paracentesis PRN for recurrent tense ascites. Nutrition * Continue soft diet; advance as tolerated. * Monitor intake and weight daily. * Consider nutrition consult and TPN if oral intake insufficient. Oncology * Early oncology consult once biopsy results available. * Evaluate for possible metastatic colorectal cancer vs HCC. Hematology * PRBC transfusion PRN to maintain Hgb >8.0. * Continue Epoetin Gilbert-epbx SC protocol. * Monitor platelets, INR daily. Infectious Disease * Continue IV antibiotics (ciprofloxacin) for SBP prophylaxis. * Monitor cultures. Case discussed in detail with the attending physician, including the clinical presentation, diagnostic workup, and comprehensive management plan. The patient was present for the discussion and demonstrated understanding of her condition and the proposed plan. Plan discussed with: Patient My Orders My Orders Orders - MILE LORA RESIDENT Procedure Category Date Status Time Communication Order ORDERS 01/15/25 Transmitted 13:50 Renal DIET 01/15/25 Transmitted Standard(2gna,3gk,Lopho) Dinner Dietary Evaluation Review Comments: 1) Continue thiamin supplementation. Consider adding folic acid and multivitamin. 2) Encourage optimal PO intake 3) Advance to 2g Na 80g hepatic diet when medically feasible 4) Refer to outpatient RD for weight management 5) Follow-up with hepatology, gastroenterology, and nephrology 6) Follow-up with social service director r/t ETOH dependency 7) Continue to monitor I&O, labs, and skin integrity Expected Outcomes/Goals: 1) appetite and labs to improve 2) GI symptoms to resolve 3) diet to advance 4) f/u in 3-5 days CC Plasma Assessment Blood Product Administration S: [id number] MILE LORA RESIDENT Jan 15, 2025 16:28
--- NOTE | 2025-01-15 17:38 | DVHPNRES ---
Progress Note Date Seen: Jan 15, 2025 Resident Creating Document: BRENDA HITCHCOCK RESIDENT Has the PT tested + for MRSA If YES, has PT been informed?: No Medical Necessity Reason Pt with a Central, PICC or Fol: Yes The following are medically ne: Central Line, Torres Catheter Subjective Review of Systems Patient is a 38-year-old female with past medical history of chronic severe anemia which required blood transfusions via before in June on August, uterine fibroids, chronic liver ascites who came to the ED with chief complaint of severe diffuse abdominal pain 8/10 in intensity, which radiates to the back, gradual increase in shortness of breath, and nausea since the past week. She complained of severe bloating and abdominal swelling since last Saturday, dry mouth, dry cough, dizziness, and bilateral leg pain due to edema. but he denies any hematemesis, headaches, diarrhea, dysuria, hematuria, but she complains her stool is darker than usual. Patient was supposed to follow-up with OBGYN for possible hysterectomy but did not. She states that she had no prior diagnosis of cirrhosis but was told during her June 2024 admission that she had liver and kidney damage. 01/11 - Patient seen and examined at the bedside. Reports feeling weak, IR placed tunneled catheter for dialysis. Dopamine started, patient did not tolerate, HR into 160s, decreased with vagal maneuvers. Discontinue dopamine. Continue diuresis. Radiologist consulted for liver biopsy. 01/12 - patient seen and examined, underwent HD last night 2.4 L taken out, underwent hemodialysis today, 2 L taken off. Patient is requiring Levophed during hemodialysis. Pending liver biopsy. 01/13 - patient underwent hemodialysis this morning. Midodrine increased to 15 mg TID. Right tunneled catheter intermittently bleeding, Dermabond in place. 01/14-patient seen and examined, right tunneled catheter clotted blood seen. Diet increased to soft diet. Echocardiogram ordered, Levophed 01/15 - patient underwent hemodialysis, 2.6 L taken out, started prednisone 40mg daily. Objective vital signs Vital Sign Date Time Temp Pulse Resp B/P (MAP) Pulse Ox O2 Delivery O2 Flow Rate FiO2 01/15/25 17:00 71 11 112/63 (79) 96 01/15/25 16:00 98.0 98.0 01/15/25 08:00 Nasal Cannula* 2 28 Total Intake and Output 01/14/25 01/14/25 01/15/25 15:00 23:00 07:00 Intake Total 290.00 ml 303.75 ml 183.75 ml Output Total 550 ml 600 ml Balance 290.00 ml -246.25 ml -416.25 ml medications Current Medications Medications Dose Ordered Sig/Bárbara Route Start Time Stop Time Status Last Admin Dose Admin Ondansetron HCl 4 mg Q4HP PRN IV 01/07/25 17:15 01/07/25 19:24 4 MG Docusate Sodium 100 mg BIDPRN PRN PO 01/07/25 17:15 Nitroglycerin 0.4 mg Q5MINP PRN SL 01/07/25 17:15 Thiamine HCl 100 mg DAILY IV 01/09/25 10:00 01/15/25 10:02 100 MG Pantoprazole Sodium 40 mg BID IV 01/08/25 22:00 01/15/25 10:02 40 MG Lactulose 15 ml DAILY PO 01/10/25 10:00 01/15/25 10:02 15 ML Bumetanide 2 mg Q6HR IV 01/10/25 10:30 01/15/25 11:39 2 MG Metolazone 15 mg DAILY PO 01/11/25 11:00 01/15/25 10:11 15 MG Norepinephrine Bitartrate 250 ml @ 3.75 mls/hr Q24H IV 01/11/25 18:15 01/15/25 13:22 7.5 MLS/HR Trazodone HCl 50 mg HS PO 01/12/25 22:00 01/14/25 22:06 50 MG Folic Acid 1 mg DAILY PO 01/12/25 10:00 01/15/25 10:03 1 MG Epoetin Gilbert-epbx 10,000 unit TUTHSA SC 01/12/25 21:00 01/14/25 09:43 10,000 UNIT Ciprofloxacin 200 ml @ 200 mls/hr DAILY IV 01/13/25 10:00 01/15/25 10:03 200 MLS/HR Midodrine 15 mg TID@0600,1200,1800 PO 01/13/25 18:00 01/15/25 11:38 15 MG Hydrocortisone Sodium Succinate 50 mg Q6HR IV 01/14/25 18:15 01/15/25 11:39 50 MG Prednisone 40 mg DAILY PO 01/16/25 10:00 Examination Morbidly obese female patient lying in the bed, appears sick, right tunneled controlled. General: Morbidly obese,, afebrile, palor, scleral icterus, Cardiovascular: Tachycardic but regular S1 and S2. No murmurs, gallops or rubs. No JVD elevation. Slightly resolving 2+ pedal pitting edema bilaterally Respiratory: Bilateral decreased air entry heard on auscultation, on RA Abdomen: Soft, distended, tender hypoactive bowel sounds, no rebound tenderness, no organomegaly, no masses Genitourinary: Deferred MSK/skin: Mobilizes 4 limbs. Skin is dry and warm Neurological: No motor, no sensitive deficits, normal speech. Pupils are isocoric and reactive. Psych/Mental Status: A/Ox3 laboratory and microbiology Laboratory Tests 01/15/25 05:02 Test 01/15/25 05:02 Range/Units Serum Glucose 154 H 74-106 mg/dL Microbiology Date/Time Source Procedure Growth Status 01/11/25 09:37 Blood Blood Culture - Preliminary NO GROWTH AFTER 72 HOURS OF INCUBATION. Resulted 01/11/25 00:20 Nose MRSA Screen - Final Complete 01/08/25 15:00 Ascities Fluid Gram Stain - Final Complete 01/08/25 15:00 Ascities Fluid Body Fluid Culture - Final Complete Labs and/or images reviewed: Labs reviewed by me, Image(s) reviewed by me Problem List/Assessment/Plan Problem List/Assessment/Plan Generalized weakness secondary to acute blood loss anemia ? Upper GI bleed, esophageal varices Hypotension requiring pressor Possible metastatic liver disease - primary unknown s/p liver biopsy 01/12 Acute on chronic decompensated liver failure - meld score 35 - MDF - 33.9 Chronic alcohol dependence Alcoholic withdrawal - CIWA less than 8 Discontinued IV octreotide drip IV pantoprazole b.i.d. GI consultation - DC IV Solu-Medrol 40 mg daily, DC octreotide IR consulted for liver biopsy-patient underwent liver biopsy 01/12 IV Levaquin switch to IV Cipro Midodrine 15 mg TID Started hydrocortisone 50 mg q.6 hours, prednisolone 40 mg daily Patient requiring pressors; Levophed 6 mcg no role of NAC alone w/o steriods Beta Whit cant be given given variceal bleed Acute Kidney Injury likely hepatorenal syndrome vs. pre-renal azotemia -FENA 0.3% requiring hemodialysis hypervolemic hypotonic hyponatremia possibly secondary to cirrhosis Anion gap metabolic acidosis secondary to lactic acid Oliguria nephrology consulted - IV Bumex 2 mg q.6 hourly, metolazone, HD 01/11, 01/12, 01/13, 01/15 Radiology placed tunneled catheter today 01/11 Patient did not tolerate dopamine, heart rate into 160s Discontinued Tolvaptan 30 mg daily Pelvic mass ? 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 This may represent an exophytic fibroid versus possible endometrioma. CA 125 elevated # Gallstones , cholelithiasis- outpatient follow-up # History of miscarriage SCDs Clear liquid diet R tunn cath 01/11 Drips: Levophed 6 Avoid morphine Plan discussed with patient, at bedside in which all questions have been answered Goals of care discussed with the patient for more than 20 minutes, full code status Case discussed with Dr. Interiano Plan discussed with: Patient, Spouse, Other (Nurse) My Orders My Orders Orders - BRENDA HITCHCOCK Procedure Category Date Status Time Hydrocortisone PHA 01/14/25 In Process Succinate Inj 18:15 Prednisone Tablet PHA 01/16/25 In Process 10:00 Dietary Evaluation Review Comments: 1) Continue thiamin supplementation. Consider adding folic acid and multivitamin. 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
[2025-01-16] VITALS (96 sets, daily range): BP systolic 80–136; BP diastolic 40–76; PULSE 62–88; RESP 9–21; TEMP 98.4–98.8; O2SAT 89–98
[2025-01-16 05:35] LABS: Hematocrit 25.7 % (36.0-46.0); Hemoglobin 8.6 g/dL (12.2-16.2); Mean Corpuscular Hemoglobin 28.7 pg (28.0-32.0); Mean Corpuscular Volume 86.0 fL (80.0-100.0)
[2025-01-16 05:42] LABS: Alanine Aminotransferase 29 U/L (7-40); Albumin 3.4 g/dL (3.2-4.8); Alkaline Phosphatase 73 U/L (46-116); Anion Gap 13 (5-15); Calcium 8.9 mg/dL (8.7-10.4); Carbon Dioxide 25 mmol/L (20-31); Chloride 98 mmol/L (98-107); Sodium 136 mmol/L (136-145)
[2025-01-16 05:51] LABS: Bilirubin, Total 10.5 mg/dL (0.2-1.0); Blood Urea Nitrogen 33 mg/dL (9-23); Glucose 162 mg/dL (74-106); Potassium 3.5 mmol/L (3.5-5.1)
[2025-01-16 06:03] LABS: BUN/Creatinine Ratio 5.3 (10.0-20.0)
[2025-01-16 06:04] LABS: Total Protein 7.3 g/dL (5.7-8.2)
[2025-01-16 06:08] LABS: Total Cells Counted 100.0 (100)
[2025-01-16] MEDS: predniSONE 20 MG TAB PO SCH (09:57)
--- NOTE | 2025-01-16 12:52 | DVHPN2 ---
Progress Note - Dictate Date Seen: Jan 16, 2025 Has the PT tested + for MRSA If YES, has PT been informed?: No Medical Necessity Reason Pt with a Central, PICC or Fol: Yes The following are medically ne: Central Line, Torres Catheter Subjective No new complaints, patient is awake and alert She does admit to relapsing to drinking prior to this admission Bilirubin is down to 10.5 today Patient is able to tolerate diet and denies any significant abdominal pain vital signs Vital Sign Date Time Temp Pulse Resp B/P (MAP) Pulse Ox O2 Delivery O2 Flow Rate FiO2 01/16/25 12:00 70 01/16/25 11:45 12 99/46 (63) 95 01/16/25 08:00 Nasal Cannula* 2 28 01/16/25 07:30 98.4 98.4 Total Intake and Output 01/15/25 01/15/25 01/16/25 15:00 23:00 07:00 Intake Total 241.25 ml 265.00 ml 280.00 ml Output Total 3050 ml 150 ml Balance 241.25 ml -2785.00 ml 130.00 ml medications Current Medications Medications Dose Ordered Sig/Bárbara Route Start Time Stop Time Status Last Admin Dose Admin Ondansetron HCl 4 mg Q4HP PRN IV 01/07/25 17:15 01/07/25 19:24 4 MG Docusate Sodium 100 mg BIDPRN PRN PO 01/07/25 17:15 Nitroglycerin 0.4 mg Q5MINP PRN SL 01/07/25 17:15 Thiamine HCl 100 mg DAILY IV 01/09/25 10:00 01/16/25 09:56 100 MG Pantoprazole Sodium 40 mg BID IV 01/08/25 22:00 01/16/25 09:56 40 MG Lactulose 15 ml DAILY PO 01/10/25 10:00 01/15/25 10:02 15 ML Bumetanide 2 mg Q6HR IV 01/10/25 10:30 01/16/25 05:27 2 MG Metolazone 15 mg DAILY PO 01/11/25 11:00 01/16/25 09:57 15 MG Norepinephrine Bitartrate 250 ml @ 3.75 mls/hr Q24H IV 01/11/25 18:15 01/15/25 13:22 7.5 MLS/HR Trazodone HCl 50 mg HS PO 01/12/25 22:00 01/15/25 22:07 50 MG Folic Acid 1 mg DAILY PO 01/12/25 10:00 01/16/25 09:57 1 MG Ciprofloxacin 200 ml @ 200 mls/hr DAILY IV 01/13/25 10:00 01/16/25 09:56 200 MLS/HR Midodrine 15 mg TID@0600,1200,1800 PO 01/13/25 18:00 01/16/25 05:27 15 MG Hydrocortisone Sodium Succinate 50 mg Q6HR IV 01/14/25 18:15 01/16/25 05:27 50 MG Prednisone 40 mg DAILY PO 01/16/25 10:00 01/16/25 09:57 40 MG Epoetin Gilbert-epbx 10,000 unit TUTHSA@2100 SC 01/16/25 21:00 objective General: Morbidly obese,, afebrile, palor, scleral icterus, Cardiovascular: Tachycardic but regular S1 and S2. No murmurs, gallops or rubs. No JVD elevation. Slightly resolving 2+ pedal pitting edema bilaterally Respiratory: Bilateral decreased air entry heard on auscultation, on RA Abdomen: Soft, distended, tender hypoactive bowel sounds, no rebound tenderness, no organomegaly, no masses Genitourinary: Deferred MSK/skin: Mobilizes 4 limbs. Skin is dry and warm Neurological: No motor, no sensitive deficits, normal speech. Pupils are isocoric and reactive. Psych/Mental Status: A/Ox3 laboratory and microbiology Laboratory Tests 01/16/25 04:41 Test 01/16/25 04:41 Range/Units Serum Glucose 162 H 74-106 mg/dL Problems(with codes): (1) Alcoholic hepatitis (2) Jaundice (3) Severe anemia (4) Generalized weakness (5) Biliary liver cirrhosis (6) Ascites (7) Hyponatremia (8) Thrombocytopenia (9) Elevated CA-125 Prognosis Plan Add ursodiol 300 mg p.o. twice a day Tapering dose of steroids Monitor labs Await liver biopsy results hopefully we should have report by next week Dietary Evaluation Review Comments: 1) Continue thiamin supplementation. Consider adding folic acid and multivitamin. 2) Encourage optimal PO intake 3) Advance to 2g Na 80g hepatic diet when medically feasible 4) Refer to outpatient RD for weight management 5) Follow-up with hepatology, gastroenterology, and nephrology 6) Follow-up with social welfare research worker r/t ETOH dependency 7) Continue to monitor I&O, labs, and skin integrity Expected Outcomes/Goals: 1) appetite and labs to improve 2) GI symptoms to resolve 3) diet to advance 4) f/u in 3-5 days Plan discussed with: Patient, Spouse, Other (JAMAR Nurse) CC Plasma Assessment Blood Product Administration S: [id number] CYNTHIA NAZARIO MD Jan 16, 2025 12:52
--- NOTE | 2025-01-16 14:48 | DVHPNRES ---
Progress Note Date Seen: Jan 16, 2025 Resident Creating Document: BRENDA HITCHCOCK RESIDENT Has the PT tested + for MRSA If YES, has PT been informed?: No Medical Necessity Reason Pt with a Central, PICC or Fol: Yes The following are medically ne: Central Line, Torres Catheter Subjective Review of Systems Patient is a 38-year-old female with past medical history of chronic severe anemia which required blood transfusions via before in June on August, uterine fibroids, chronic liver ascites who came to the ED with chief complaint of severe diffuse abdominal pain 8/10 in intensity, which radiates to the back, gradual increase in shortness of breath, and nausea since the past week. She complained of severe bloating and abdominal swelling since last Saturday, dry mouth, dry cough, dizziness, and bilateral leg pain due to edema. but he denies any hematemesis, headaches, diarrhea, dysuria, hematuria, but she complains her stool is darker than usual. Patient was supposed to follow-up with OBGYN for possible hysterectomy but did not. She states that she had no prior diagnosis of cirrhosis but was told during her June 2024 admission that she had liver and kidney damage. 01/11 - Patient seen and examined at the bedside. Reports feeling weak, IR placed tunneled catheter for dialysis. Dopamine started, patient did not tolerate, HR into 160s, decreased with vagal maneuvers. Discontinue dopamine. Continue diuresis. Radiologist consulted for liver biopsy. 01/12 - patient seen and examined, underwent HD last night 2.4 L taken out, underwent hemodialysis today, 2 L taken off. Patient is requiring Levophed during hemodialysis. Pending liver biopsy. 01/13 - patient underwent hemodialysis this morning. Midodrine increased to 15 mg TID. Right tunneled catheter intermittently bleeding, Dermabond in place. 01/14-patient seen and examined, right tunneled catheter clotted blood seen. Diet increased to soft diet. Echocardiogram ordered, Levophed 6 01/15 - patient underwent hemodialysis, 2.6 L taken out, started prednisone 40mg daily. 01/16 - patient seen and examined, weaned off IV pressors, GI decreased prednisone to 30 mg daily, ursodiol daily, MAP goal > 60. Objective vital signs Vital Sign Date Time Temp Pulse Resp B/P (MAP) Pulse Ox O2 Delivery O2 Flow Rate FiO2 01/16/25 14:00 72 01/16/25 12:00 94/43 01/16/25 11:45 12 95 01/16/25 08:00 Nasal Cannula* 2 28 01/16/25 07:30 98.4 98.4 Total Intake and Output 01/15/25 01/15/25 01/16/25 15:00 23:00 07:00 Intake Total 241.25 ml 265.00 ml 280.00 ml Output Total 3050 ml 150 ml Balance 241.25 ml -2785.00 ml 130.00 ml medications Current Medications Medications Dose Ordered Sig/Bárbara Route Start Time Stop Time Status Last Admin Dose Admin Ondansetron HCl 4 mg Q4HP PRN IV 01/07/25 17:15 01/07/25 19:24 4 MG Docusate Sodium 100 mg BIDPRN PRN PO 01/07/25 17:15 Nitroglycerin 0.4 mg Q5MINP PRN SL 01/07/25 17:15 Thiamine HCl 100 mg DAILY IV 01/09/25 10:00 01/16/25 09:56 100 MG Pantoprazole Sodium 40 mg BID IV 01/08/25 22:00 01/16/25 09:56 40 MG Lactulose 15 ml DAILY PO 01/10/25 10:00 01/15/25 10:02 15 ML Bumetanide 2 mg Q6HR IV 01/10/25 10:30 01/16/25 12:00 2 MG Metolazone 15 mg DAILY PO 01/11/25 11:00 01/16/25 09:57 15 MG Norepinephrine Bitartrate 250 ml @ 3.75 mls/hr Q24H IV 01/11/25 18:15 01/15/25 13:22 7.5 MLS/HR Trazodone HCl 50 mg HS PO 01/12/25 22:00 01/15/25 22:07 50 MG Folic Acid 1 mg DAILY PO 01/12/25 10:00 01/16/25 09:57 1 MG Ciprofloxacin 200 ml @ 200 mls/hr DAILY IV 01/13/25 10:00 01/16/25 09:56 200 MLS/HR Midodrine 15 mg TID@0600,1200,1800 PO 01/13/25 18:00 01/16/25 12:00 15 MG Hydrocortisone Sodium Succinate 50 mg Q6HR IV 01/14/25 18:15 01/16/25 12:00 50 MG Epoetin Gilbert-epbx 10,000 unit TUTMADISONA@2100 SC 01/16/25 21:00 Prednisone 30 mg DAILY PO 01/17/25 10:00 Ursodiol 300 mg BID PO 01/16/25 22:00 Examination Morbidly obese female patient lying in the bed, appears sick, right tunneled catheter General: Morbidly obese,, afebrile, palor, scleral icterus, Cardiovascular: Tachycardic but regular S1 and S2. No murmurs, gallops or rubs. No JVD elevation. Slightly resolving 2+ pedal pitting edema bilaterally Respiratory: Bilateral decreased air entry heard on auscultation, on RA Abdomen: Soft, distended, tender hypoactive bowel sounds, no rebound tenderness, no organomegaly, no masses Genitourinary: Deferred, Torres catheter seen draining urine MSK/skin: Mobilizes 4 limbs. Skin is dry and warm Neurological: No motor, no sensitive deficits, normal speech. Pupils are isocoric and reactive. Psych/Mental Status: A/Ox3 laboratory and microbiology Laboratory Tests 01/16/25 04:41 Test 01/16/25 04:41 Range/Units Serum Glucose 162 H 74-106 mg/dL Microbiology Date/Time Source Procedure Growth Status 01/11/25 09:37 Blood Blood Culture - Final NO GROWTH AFTER 5 DAYS OF INCUBATION. Complete 01/11/25 00:20 Nose MRSA Screen - Final Complete 01/08/25 15:00 Ascities Fluid Gram Stain - Final Complete 01/08/25 15:00 Ascities Fluid Body Fluid Culture - Final Complete Labs and/or images reviewed: Labs reviewed by me, Image(s) reviewed by me Problem List/Assessment/Plan Problem List/Assessment/Plan Generalized weakness secondary to acute blood loss anemia ? Upper GI bleed, esophageal varices Hypotension requiring pressor Possible metastatic liver disease - primary unknown s/p liver biopsy 01/12 Acute on chronic decompensated liver failure - meld score 35 - MDF - 40.9, [place] model tbd on 01/20 Chronic alcohol dependence Alcoholic withdrawal - CIWA less than 8 Discontinued IV octreotide drip IV pantoprazole b.i.d. GI consultation - DC IV Solu-Medrol 40 mg daily, DC octreotide IR consulted for liver biopsy-patient underwent liver biopsy 01/12, pending results IV Levaquin switch to IV Cipro Midodrine 15 mg TID Started hydrocortisone 50 mg q.6 hours, prednisolone 30 mg daily, ursodiol daily Off pressors Beta Whit cant be given given possible variceal bleed Acute Kidney Injury likely hepatorenal syndrome vs. pre-renal azotemia -FENA 0.3% requiring hemodialysis hypervolemic hypotonic hyponatremia possibly secondary to cirrhosis Anion gap metabolic acidosis secondary to lactic acid Oliguria nephrology consulted - IV Bumex 2 mg q.6 hourly, metolazone, HD 01/11, 01/12, 01/13, 01/15 Radiology placed tunneled catheter today 01/11 Patient did not tolerate dopamine, heart rate into 160s Discontinued Tolvaptan 30 mg daily Pelvic mass ? Mass versus fibroid Abnormal uterine bleeding OBGYN consultation -[facility] for devulcanizer head onc MRI showed 4.9 cm T2 hypointense structure in the posterior right hemipelvis. This may represent an exophytic fibroid versus possible endometrioma. CA 125 elevated # Gallstones , cholelithiasis- outpatient follow-up # History of miscarriage SCDs Renal diet R tunn cath 01/11 Drips: Levophed 00 01/16 Avoid morphine Plan discussed with patient, at bedside in which all questions have been answered Goals of care discussed with the patient for more than 20 minutes, full code status Case discussed with Dr. Carreon Plan discussed with: Patient, Spouse My Orders My Orders Orders - BRENDA HITCHCOCK Procedure Category Date Status Time Communication Order ORDERS 01/16/25 Transmitted 14:39 Dietary Evaluation Review Comments: 1) Continue thiamin supplementation. Consider adding folic acid and multivitamin. 2) Encourage optimal PO intake 3) Advance to 2g Na 80g hepatic diet when medically feasible 4) Refer to outpatient RD for weight management 5) Follow-up with hepatology, gastroenterology, and nephrology 6) Follow-up with social worker clinical r/t ETOH dependency 7) Continue to monitor I&O, labs, and skin integrity Expected Outcomes/Goals: 1) appetite and labs to improve 2) GI symptoms to resolve 3) diet to advance 4) f/u in 3-5 days CC Plasma Assessment Blood Product Administration S: [id number] Date of Service: Jan 16, 2025 Billing Provider: BRIA CARREON MD Common Visit Codes: [id number] CARE 30-74 MIN BRENDA HITCHCOCK Jan 16, 2025 14:48 BRIA CARREON MD Jan 17, 2025 20:12
--- NOTE | 2025-01-16 17:11 | DVHPN2 ---
Progress Note Date Seen: Jan 16, 2025 Has the PT tested + for MRSA If YES, has PT been informed?: No Medical Necessity Reason Pt with a Central, PICC or Fol: Yes The following are medically ne: Central Line, Torres Catheter Subjective Changes from previous H/P or p: No Changes Objective vital signs Vital Sign Date Time Temp Pulse Resp B/P (MAP) Pulse Ox O2 Delivery O2 Flow Rate FiO2 01/16/25 16:47 91/40 01/16/25 16:00 67 01/16/25 16:00 98.6 17 96 98.6 01/16/25 08:00 Nasal Cannula* 2 28 Total Intake and Output 01/15/25 01/15/25 01/16/25 15:00 23:00 07:00 Intake Total 241.25 ml 265.00 ml 280.00 ml Output Total 3050 ml 150 ml Balance 241.25 ml -2785.00 ml 130.00 ml medications Current Medications Medications Dose Ordered Sig/Bárbara Route Start Time Stop Time Status Last Admin Dose Admin Ondansetron HCl 4 mg Q4HP PRN IV 01/07/25 17:15 01/07/25 19:24 4 MG Docusate Sodium 100 mg BIDPRN PRN PO 01/07/25 17:15 Nitroglycerin 0.4 mg Q5MINP PRN SL 01/07/25 17:15 Thiamine HCl 100 mg DAILY IV 01/09/25 10:00 01/16/25 09:56 100 MG Pantoprazole Sodium 40 mg BID IV 01/08/25 22:00 01/16/25 09:56 40 MG Lactulose 15 ml DAILY PO 01/10/25 10:00 01/15/25 10:02 15 ML Bumetanide 2 mg Q6HR IV 01/10/25 10:30 01/16/25 12:00 2 MG Metolazone 15 mg DAILY PO 01/11/25 11:00 01/16/25 09:57 15 MG Norepinephrine Bitartrate 250 ml @ 3.75 mls/hr Q24H IV 01/11/25 18:15 01/15/25 13:22 7.5 MLS/HR Trazodone HCl 50 mg HS PO 01/12/25 22:00 01/15/25 22:07 50 MG Folic Acid 1 mg DAILY PO 01/12/25 10:00 01/16/25 09:57 1 MG Ciprofloxacin 200 ml @ 200 mls/hr DAILY IV 01/13/25 10:00 01/16/25 09:56 200 MLS/HR Midodrine 15 mg TID@0600,1200,1800 PO 01/13/25 18:00 01/16/25 12:00 15 MG Hydrocortisone Sodium Succinate 50 mg Q6HR IV 01/14/25 18:15 01/16/25 12:00 50 MG Epoetin Gilbert-epbx 10,000 unit TUTHSA@2100 SC 01/16/25 21:00 Prednisone 30 mg DAILY PO 01/17/25 10:00 Ursodiol 300 mg BID PO 01/16/25 22:00 Examination: GENERAL:Abnormal, CVS:Normal, ABDOMEN:Abnormal, SKIN:Abnormal laboratory and microbiology Laboratory Tests 01/16/25 04:41 Test 01/16/25 04:41 Range/Units Serum Glucose 162 H 74-106 mg/dL Microbiology Date/Time Source Procedure Growth Status 01/11/25 09:37 Blood Blood Culture - Final NO GROWTH AFTER 5 DAYS OF INCUBATION. Complete 01/11/25 00:20 Nose MRSA Screen - Final Complete 01/08/25 15:00 Ascities Fluid Gram Stain - Final Complete 01/08/25 15:00 Ascities Fluid Body Fluid Culture - Final Complete Problem List/Assessment/Plan Problem List/Assessment/Plan 39 year female PMH etoh abuse p/w weakness Acute kidney injury hepatorenal syndrome vs hemodynamic ckd II etoh cirrhosis, liver masses, jaundice severe anasarca and ascites anemia due to liver disease hyponatremia due to volume overload thrombocytopenia severe anasarca HD tomorrow, no heparin PRN PRBC to keep hb > 8.0 diuretics- bumex and metolazone epogen 3x a week monitor UOP fluid restriction midodrine po to keep map> 65 levophed keep MAP > 65 poor overall prognosis Plan discussed with: Patient My Orders My Orders Orders - EDMOND MAS MD Procedure Category Date Status Time Epoetin Gilbert-Epbx PHA 01/16/25 In Process (Retacrit) 21:00 Basic Metabolic Panel LAB 01/17/25 Verified 04:00 Complete Blood Count LAB 01/17/25 Verified 04:00 Hemodialysis Orders ORDERS 01/17/25 Verified 07:00 Dialysis Nursing RAFAEL 01/17/25 Verified Message 07:00 Sodium Chloride 0.9% PHA 01/17/25 Verified 07:00 Document Fluid Input RAFAEL 01/17/25 Verified And Outpu 07:00 Dietary Evaluation Review Comments: 1) Continue thiamin supplementation. Consider adding folic acid and multivitamin. 2) Encourage optimal PO intake 3) Advance to 2g Na 80g hepatic diet when medically feasible 4) Refer to outpatient RD for weight management 5) Follow-up with hepatology, gastroenterology, and nephrology 6) Follow-up with social science teacher r/t ETOH dependency 7) Continue to monitor I&O, labs, and skin integrity Expected Outcomes/Goals: 1) appetite and labs to improve 2) GI symptoms to resolve 3) diet to advance 4) f/u in 3-5 days Critical Care Time (mins): 33 CC Plasma Assessment Blood Product Administration S: [id number] EDMOND MAS MD Jan 16, 2025 17:11
[2025-01-16 17:23] LABS: INR 1.76 (0.9-1.15); Partial Thromboplastin Time 38.7 SEC (24.5-34.5); Prothrombin Time 17.6 sec (9.3-11.8)
[2025-01-16] MEDS: URSODIOL 300 MG CAP PO SCH (22:37)
[2025-01-16] MEDS: EPOETIN ALFA-EPBX 10,000 UNIT/1ML VIAL SC SCH (22:37)
[2025-01-17] VITALS (95 sets, daily range): BP systolic 107–148; BP diastolic 35–89; PULSE 57–79; RESP 9–23; TEMP 97.9–98.6; O2SAT 93–99
[2025-01-17 04:10] LABS: Hematocrit 25.2 % (36.0-46.0); Hemoglobin 8.6 g/dL (12.2-16.2); Mean Corpuscular Hemoglobin 29.1 pg (28.0-32.0); Mean Corpuscular Volume 86.0 fL (80.0-100.0); Nucleated Red Blood Cells % 0.1 %
[2025-01-17 04:23] LABS: INR 1.71 (0.9-1.15); Partial Thromboplastin Time 35.6 SEC (24.5-34.5); Prothrombin Time 17.2 sec (9.3-11.8)
[2025-01-17 04:25] LABS: Anion Gap 13 (5-15); Carbon Dioxide 24 mmol/L (20-31); Chloride 98 mmol/L (98-107)
[2025-01-17 04:26] LABS: Calcium 8.9 mg/dL (8.7-10.4)
[2025-01-17 04:27] LABS: Potassium 3.5 mmol/L (3.5-5.1); Sodium 135 mmol/L (136-145)
[2025-01-17 04:32] LABS: BUN/Creatinine Ratio 6.4 (10.0-20.0)
[2025-01-17 04:33] LABS: Blood Urea Nitrogen 45 mg/dL (9-23); Glucose 160 mg/dL (74-106)
[2025-01-17] MEDS: ALBUMIN 25% 100 ML IV ONE ×2 (08:32)
[2025-01-17] MEDS: SODIUM CHL 0.9% 1000 ML BAG XX ONE (11:01)
[2025-01-17] MEDS: predniSONE 20 MG TAB PO SCH (11:09)
--- NOTE | 2025-01-17 11:22 | DVHPN2 ---
Assessment/Plan Assessment/Plan ICU note 38 F with severe anemia, fibroids, chronic liver disease, CKD admitted for abdominal pain, had liver bx, started on HD per renal. seen today, pressor restarted, asymptomatic however MAP goes below 60. OOBTC, c/w midodrine and steroids physical exam AOx4 PERLLA MMM clear breath sounds s1 s2 rrr abdomen distended, nontender no le edema labs ekg imaging reviewed assessment and plan UGIB? hemorrhagic shock possible metastatic liver dz s/p bx acute on chronic liver failure alcohol use alcohol withdrwal MARSHALL hepatorenal now on HD pelvic mass? fibroids? thrombocytopenia acquired coagulopathy hyponatremia MELD 35 MDF 40.9 c/w HD per renal stress dose steroid and prednisone midodrine pressor to keep MAP >60 follow bx result c/w cipro protonix diet renal dvt ppx SCD full code condition critical prognosis poor critical care time 45 minutes Plan discussed with: Patient, Spouse Date of Service: Jan 17, 2025 Billing Provider: BRIA CARREON MD Common Visit Codes: [id number] CARE 30-74 MIN BRIA CARREON MD Jan 17, 2025 11:22
--- NOTE | 2025-01-17 14:55 | DVHPN2 ---
Progress Note Date Seen: Jan 17, 2025 Has the PT tested + for MRSA If YES, has PT been informed?: No Medical Necessity Reason Pt with a Central, PICC or Fol: Yes The following are medically ne: Central Line, Torres Catheter Subjective Patient reports: Feels better Objective vital signs Vital Sign Date Time Temp Pulse Resp B/P (MAP) Pulse Ox O2 Delivery O2 Flow Rate FiO2 01/17/25 12:15 59 14 116/55 (75) 97 01/17/25 12:00 97.9 97.9 01/17/25 08:00 Nasal Cannula* 2 28 Total Intake and Output 01/16/25 01/16/25 01/17/25 15:00 23:00 07:00 Intake Total 211.25 ml 680.00 ml 150.00 ml Output Total 225 ml 275 ml Balance 211.25 ml 455.00 ml -125.00 ml medications Current Medications Medications Dose Ordered Sig/Bárbara Route Start Time Stop Time Status Last Admin Dose Admin Ondansetron HCl 4 mg Q4HP PRN IV 01/07/25 17:15 01/07/25 19:24 4 MG Docusate Sodium 100 mg BIDPRN PRN PO 01/07/25 17:15 Nitroglycerin 0.4 mg Q5MINP PRN SL 01/07/25 17:15 Thiamine HCl 100 mg DAILY IV 01/09/25 10:00 01/17/25 11:07 100 MG Pantoprazole Sodium 40 mg BID IV 01/08/25 22:00 01/17/25 11:08 40 MG Lactulose 15 ml DAILY PO 01/10/25 10:00 01/17/25 11:08 15 ML Bumetanide 2 mg Q6HR IV 01/10/25 10:30 01/17/25 11:46 2 MG Metolazone 15 mg DAILY PO 01/11/25 11:00 01/17/25 11:45 15 MG Norepinephrine Bitartrate 250 ml @ 3.75 mls/hr Q24H IV 01/11/25 18:15 01/15/25 13:22 7.5 MLS/HR Trazodone HCl 50 mg HS PO 01/12/25 22:00 01/16/25 22:37 50 MG Folic Acid 1 mg DAILY PO 01/12/25 10:00 01/17/25 11:08 1 MG Ciprofloxacin 200 ml @ 200 mls/hr DAILY IV 01/13/25 10:00 01/17/25 11:08 200 MLS/HR Midodrine 15 mg TID@0600,1200,1800 PO 01/13/25 18:00 01/17/25 11:45 15 MG Hydrocortisone Sodium Succinate 50 mg Q6HR IV 01/14/25 18:15 01/17/25 11:46 50 MG Epoetin Gilbert-epbx 10,000 unit TUTHSA@2100 SC 01/16/25 21:00 01/16/25 22:37 10,000 UNIT Prednisone 30 mg DAILY PO 01/17/25 10:00 01/17/25 11:09 30 MG Ursodiol 300 mg BID PO 01/16/25 22:00 01/17/25 11:09 300 MG laboratory and microbiology Laboratory Tests 01/17/25 03:27 Test 01/17/25 03:27 Range/Units Serum Glucose 160 H 74-106 mg/dL Microbiology Date/Time Source Procedure Growth Status 01/11/25 09:37 Blood Blood Culture - Final NO GROWTH AFTER 5 DAYS OF INCUBATION. Complete 01/11/25 00:20 Nose MRSA Screen - Final Complete 01/08/25 15:00 Ascities Fluid Gram Stain - Final Complete 01/08/25 15:00 Ascities Fluid Body Fluid Culture - Final Complete Problem List/Assessment/Plan Problem List/Assessment/Plan 39 year female PMH etoh abuse p/w weakness Acute kidney injury hepatorenal syndrome vs hemodynamic ckd II etoh cirrhosis, liver masses, jaundice severe anasarca and ascites anemia due to liver disease hyponatremia due to volume overload thrombocytopenia severe anasarca starting to improve HD today, no heparin tolerated 3.5L removal using a UF profile PRN PRBC to keep hb > 8.0 diuretics- bumex and metolazone epogen 3x a week monitor UOP fluid restriction midodrine po to keep map> 65 levophed keep MAP > 65 poor overall prognosis Plan discussed with: Patient, Spouse My Orders My Orders Orders - EDMOND MAS MD Procedure Category Date Status Time Hemodialysis Orders ORDERS 01/17/25 Transmitted 07:00 Dialysis Nursing RAFAEL 01/17/25 In Process Message 07:00 Document Fluid Input RAFAEL 01/17/25 In Process And Outpu 07:00 Dietary Evaluation Review Comments: 1) Continue thiamin supplementation. Consider adding folic acid and multivitamin. 2) Encourage optimal PO intake 3) Advance to 2g Na 80g hepatic diet when medically feasible 4) Refer to outpatient RD for weight management 5) Follow-up with hepatology, gastroenterology, and nephrology 6) Follow-up with social media developer r/t ETOH dependency 7) Continue to monitor I&O, labs, and skin integrity Expected Outcomes/Goals: 1) appetite and labs to improve 2) GI symptoms to resolve 3) diet to advance 4) f/u in 3-5 days Critical Care Time (mins): 33 CC Plasma Assessment Blood Product Administration S: 2038 EDMOND MAS MD Jan 17, 2025 14:55
--- NOTE | 2025-01-17 18:34 | DVHPN2 ---
Progress Note - Dictate Date Seen: Jan 17, 2025 Has the PT tested + for MRSA If YES, has PT been informed?: No Medical Necessity Reason Pt with a Central, PICC or Fol: Yes The following are medically ne: Central Line, Torres Catheter Subjective 38 F with severe anemia, fibroids, chronic liver disease, CKD admitted for abdominal pain, had liver bx, started on HD per renal. Asymptomatic however MAP goes below 60. OOBTC, c/w midodrine and steroids pressors restarted No new complaints, patient is awake and alert She does admit to relapsing to drinking prior to this admission Bilirubin is down to 10.5 today Patient is able to tolerate diet and denies any significant abdominal pain vital signs Vital Sign Date Time Temp Pulse Resp B/P (MAP) Pulse Ox O2 Delivery O2 Flow Rate FiO2 01/17/25 18:05 122/58 01/17/25 17:00 69 16 96 01/17/25 16:00 98.1 98.1 01/17/25 08:00 Nasal Cannula* 2 28 Total Intake and Output 01/16/25 01/16/25 01/17/25 15:00 23:00 07:00 Intake Total 211.25 ml 680.00 ml 150.00 ml Output Total 225 ml 275 ml Balance 211.25 ml 455.00 ml -125.00 ml medications Current Medications Medications Dose Ordered Sig/Bárbara Route Start Time Stop Time Status Last Admin Dose Admin Ondansetron HCl 4 mg Q4HP PRN IV 01/07/25 17:15 01/07/25 19:24 4 MG Docusate Sodium 100 mg BIDPRN PRN PO 01/07/25 17:15 Nitroglycerin 0.4 mg Q5MINP PRN SL 01/07/25 17:15 Thiamine HCl 100 mg DAILY IV 01/09/25 10:00 01/17/25 11:07 100 MG Pantoprazole Sodium 40 mg BID IV 01/08/25 22:00 01/17/25 11:08 40 MG Lactulose 15 ml DAILY PO 01/10/25 10:00 01/17/25 11:08 15 ML Bumetanide 2 mg Q6HR IV 01/10/25 10:30 01/17/25 18:05 2 MG Metolazone 15 mg DAILY PO 01/11/25 11:00 01/17/25 11:45 15 MG Norepinephrine Bitartrate 250 ml @ 3.75 mls/hr Q24H IV 01/11/25 18:15 01/15/25 13:22 7.5 MLS/HR Trazodone HCl 50 mg HS PO 01/12/25 22:00 01/16/25 22:37 50 MG Folic Acid 1 mg DAILY PO 01/12/25 10:00 01/17/25 11:08 1 MG Ciprofloxacin 200 ml @ 200 mls/hr DAILY IV 01/13/25 10:00 01/17/25 11:08 200 MLS/HR Midodrine 15 mg TID@0600,1200,1800 PO 01/13/25 18:00 01/17/25 18:05 15 MG Hydrocortisone Sodium Succinate 50 mg Q6HR IV 01/14/25 18:15 01/17/25 18:06 50 MG Epoetin Gilbert-epbx 10,000 unit TUTHSA@2100 SC 01/16/25 21:00 01/16/25 22:37 10,000 UNIT Prednisone 30 mg DAILY PO 01/17/25 10:00 01/17/25 11:09 30 MG Ursodiol 300 mg BID PO 01/16/25 22:00 01/17/25 11:09 300 MG objective General: Morbidly obese,, afebrile, palor, scleral icterus, Cardiovascular: Tachycardic but regular S1 and S2. No murmurs, gallops or rubs. No JVD elevation. Slightly resolving 2+ pedal pitting edema bilaterally Respiratory: Bilateral decreased air entry heard on auscultation, on RA Abdomen: Soft, distended, tender hypoactive bowel sounds, no rebound tenderness, no organomegaly, no masses Genitourinary: Deferred MSK/skin: Mobilizes 4 limbs. Skin is dry and warm Neurological: No motor, no sensitive deficits, normal speech. Pupils are isocoric and reactive. Psych/Mental Status: A/Ox3 laboratory and microbiology Laboratory Tests 01/17/25 03:27 Test 01/17/25 03:27 Range/Units Serum Glucose 160 H 74-106 mg/dL Problems(with codes): (1) Elevated CA-125 (2) Thrombocytopenia (3) Jaundice (4) Hyponatremia (5) Alcoholic hepatitis (6) Severe anemia (7) Generalized weakness (8) Biliary liver cirrhosis (9) Ascites Prognosis Plan Add ursodiol 300 mg p.o. twice a day Tapering dose of steroids Hypotension likely due to underlying chronic liver disease Monitor labs Await liver biopsy results hopefully we should have report by next week Dietary Evaluation Review Comments: 1) Continue thiamin supplementation. Consider adding folic acid and multivitamin. 2) Encourage optimal PO intake 3) Advance to 2g Na 80g hepatic diet when medically feasible 4) Refer to outpatient RD for weight management 5) Follow-up with hepatology, gastroenterology, and nephrology 6) Follow-up with perinatal social worker r/t ETOH dependency 7) Continue to monitor I&O, labs, and skin integrity Expected Outcomes/Goals: 1) appetite and labs to improve 2) GI symptoms to resolve 3) diet to advance 4) f/u in 3-5 days Plan discussed with: Patient, Other CC Plasma Assessment Blood Product Administration S: [id number] CYNTHIA NAZARIO MD Jan 17, 2025 18:34
[2025-01-18] VITALS (68 sets, daily range): BP systolic 105–135; BP diastolic 46–71; PULSE 56–93; RESP 10–23; TEMP 98.3–98.7; O2SAT 90–97
[2025-01-18 05:53] LABS: Hematocrit 23.9 % (36.0-46.0); Hemoglobin 7.8 g/dL (12.2-16.2); Mean Corpuscular Hemoglobin 28.2 pg (28.0-32.0); Mean Corpuscular Volume 86.0 fL (80.0-100.0); Nucleated Red Blood Cells % 0.0 %
[2025-01-18 05:59] LABS: Anion Gap 14 (5-15); Carbon Dioxide 25 mmol/L (20-31); Chloride 99 mmol/L (98-107); Sodium 138 mmol/L (136-145)
[2025-01-18 06:01] LABS: Calcium 8.7 mg/dL (8.7-10.4); Potassium 3.5 mmol/L (3.5-5.1)
[2025-01-18 06:05] LABS: BUN/Creatinine Ratio 9.5 (10.0-20.0); Blood Urea Nitrogen 55 mg/dL (9-23); Glucose 158 mg/dL (74-106)
[2025-01-18] MEDS: POTASSIUM CHL 20 Meq TABLET PO ONE (08:00)
--- NOTE | 2025-01-18 14:40 | DVHPNRES ---
Progress Note Date Seen: Jan 18, 2025 Resident Creating Document: BRENDA HITCHCOCK RESIDENT Has the PT tested + for MRSA If YES, has PT been informed?: No Medical Necessity Reason Pt with a Central, PICC or Fol: Yes The following are medically ne: Central Line, Torres Catheter Subjective Review of Systems Patient is a 38-year-old female with past medical history of chronic severe anemia which required blood transfusions via before in June on August, uterine fibroids, chronic liver ascites who came to the ED with chief complaint of severe diffuse abdominal pain 8/10 in intensity, which radiates to the back, gradual increase in shortness of breath, and nausea since the past week. She complained of severe bloating and abdominal swelling since last Saturday, dry mouth, dry cough, dizziness, and bilateral leg pain due to edema. but he denies any hematemesis, headaches, diarrhea, dysuria, hematuria, but she complains her stool is darker than usual. Patient was supposed to follow-up with OBGYN for possible hysterectomy but did not. She states that she had no prior diagnosis of cirrhosis but was told during her June 2024 admission that she had liver and kidney damage. 01/11 - Patient seen and examined at the bedside. Reports feeling weak, IR placed tunneled catheter for dialysis. Dopamine started, patient did not tolerate, HR into 160s, decreased with vagal maneuvers. Discontinue dopamine. Continue diuresis. Radiologist consulted for liver biopsy. 01/12 - patient seen and examined, underwent HD last night 2.4 L taken out, underwent hemodialysis today, 2 L taken off. Patient is requiring Levophed during hemodialysis. Pending liver biopsy. 01/13 - patient underwent hemodialysis this morning. Midodrine increased to 15 mg TID. Right tunneled catheter intermittently bleeding, Dermabond in place. 01/14-patient seen and examined, right tunneled catheter clotted blood seen. Diet increased to soft diet. Echocardiogram ordered, Levophed 6 01/15 - patient underwent hemodialysis, 2.6 L taken out, started prednisone 40mg daily. 01/16 - patient seen and examined, weaned off IV pressors, GI decreased prednisone to 30 mg daily, ursodiol daily, MAP goal > 60. 01/18 - patient off pressors, underwent hemodialysis 01/17 Objective vital signs Vital Sign Date Time Temp Pulse Resp B/P (MAP) Pulse Ox O2 Delivery O2 Flow Rate FiO2 8/11/25 12:45 72 16 135/60 (85) 96 01/18/25 12:00 98.4 98.4 01/18/25 08:00 Nasal Cannula* 2 28 Total Intake and Output 01/17/25 01/17/25 01/18/25 15:00 23:00 07:00 Intake Total 222.50 ml 457.50 ml 240 ml Output Total 200 ml 240 ml Balance 222.50 ml 257.50 ml 0 ml medications Current Medications Medications Dose Ordered Sig/Bárbara Route Start Time Stop Time Status Last Admin Dose Admin Ondansetron HCl 4 mg Q4HP PRN IV 01/07/25 17:15 01/07/25 19:24 4 MG Docusate Sodium 100 mg BIDPRN PRN PO 01/07/25 17:15 Nitroglycerin 0.4 mg Q5MINP PRN SL 01/07/25 17:15 Thiamine HCl 100 mg DAILY IV 01/09/25 10:00 01/18/25 10:30 100 MG Pantoprazole Sodium 40 mg BID IV 01/08/25 22:00 01/18/25 10:30 40 MG Lactulose 15 ml DAILY PO 01/10/25 10:00 01/18/25 10:30 15 ML Bumetanide 2 mg Q6HR IV 01/10/25 10:30 01/18/25 12:37 2 MG Metolazone 15 mg DAILY PO 01/11/25 11:00 01/18/25 10:31 15 MG Norepinephrine Bitartrate 250 ml @ 3.75 mls/hr Q24H IV 01/11/25 18:15 01/15/25 13:22 7.5 MLS/HR Trazodone HCl 50 mg HS PO 01/12/25 22:00 01/17/25 22:24 50 MG Folic Acid 1 mg DAILY PO 01/12/25 10:00 01/18/25 10:30 1 MG Ciprofloxacin 200 ml @ 200 mls/hr DAILY IV 01/13/25 10:00 01/18/25 10:30 200 MLS/HR Midodrine 15 mg TID@0600,1200,1800 PO 01/13/25 18:00 01/18/25 12:38 15 MG Hydrocortisone Sodium Succinate 50 mg Q6HR IV 01/14/25 18:15 01/18/25 12:38 50 MG Epoetin Gilbert-epbx 10,000 unit CARMENHSA@2100 PR 01/16/25 21:00 01/16/25 22:37 10,000 UNIT Prednisone 30 mg DAILY PO 01/17/25 10:00 01/18/25 10:31 30 MG Ursodiol 300 mg BID PO 01/16/25 22:00 01/18/25 10:31 300 MG Examination Morbidly obese female patient lying in the bed, appears sick, right tunneled catheter General: Morbidly obese,, afebrile, palor, scleral icterus, Cardiovascular: Tachycardic but regular S1 and S2. No murmurs, gallops or rubs. No JVD elevation. resolving 2+ pedal pitting edema bilaterally Respiratory: Bilateral decreased air entry heard on auscultation, on RA Abdomen: Soft, distended, nontender normoactive bowel sounds, no rebound tenderness, no organomegaly, no masses Genitourinary: Deferred, Torres catheter seen draining urine MSK/skin: Mobilizes 4 limbs. Skin is dry and warm Neurological: No motor, no sensitive deficits, normal speech. Pupils are isocoric and reactive. Psych/Mental Status: A/Ox3 laboratory and microbiology Laboratory Tests 01/18/25 05:13 Test 01/18/25 05:13 Range/Units Serum Glucose 158 H 74-106 mg/dL Microbiology Date/Time Source Procedure Growth Status 01/11/25 09:37 Blood Blood Culture - Final NO GROWTH AFTER 5 DAYS OF INCUBATION. Complete 01/11/25 00:20 Nose MRSA Screen - Final Complete 01/08/25 15:00 Ascities Fluid Gram Stain - Final Complete 01/08/25 15:00 Ascities Fluid Body Fluid Culture - Final Complete Labs and/or images reviewed: Labs reviewed by me, Image(s) reviewed by me Problem List/Assessment/Plan Problem List/Assessment/Plan Generalized weakness secondary to acute blood loss anemia ? Upper GI bleed, esophageal varices Hypotension requiring pressor Possible metastatic liver disease - primary unknown s/p liver biopsy 01/12 Acute on chronic decompensated liver failure - meld score 35 - MDF - 40.9, [place] model tbd on 01/20 Chronic alcohol dependence Alcoholic withdrawal - CIWA less than 8 Discontinued IV octreotide drip IV pantoprazole b.i.d. GI consultation - DC IV Solu-Medrol 40 mg daily, DC octreotide, continue prednisone IR consulted for liver biopsy-patient underwent liver biopsy 01/12, pending results IV Levaquin switch to IV Cipro Midodrine 15 mg TID Started hydrocortisone 50 mg q.6 hours, prednisone 30 mg daily, ursodiol daily Off pressors Beta Whit cant be given given possible variceal bleed Acute Kidney Injury likely hepatorenal syndrome vs. pre-renal azotemia -FENA 0.3% requiring hemodialysis hypervolemic hypotonic hyponatremia possibly secondary to cirrhosis Anion gap metabolic acidosis secondary to lactic acid Oliguria nephrology consulted - IV Bumex 2 mg q.6 hourly, metolazone, HD 01/11, 01/12, 01/13, 01/15, 01/17 Radiology placed tunneled catheter today 01/11 Patient did not tolerate dopamine, heart rate into 160s Discontinued Tolvaptan 30 mg daily Pelvic mass ? Mass versus fibroid Abnormal uterine bleeding OBGYN consultation -[facility] for obstetrics gyn onc MRI showed 4.9 cm T2 hypointense structure in the posterior right hemipelvis. This may represent an exophytic fibroid versus possible endometrioma. CA 125 elevated # Gallstones , cholelithiasis- outpatient follow-up # History of miscarriage SCDs Renal diet R tunn cath 01/11 Drips: Levophed 0ff 01/16 Avoid morphine Plan discussed with patient, at bedside in which all questions have been answered Goals of care discussed with the patient for more than 20 minutes, full code status Case discussed with Dr. Samuels Plan discussed with: Patient, Spouse Dietary Evaluation Review Comments: 1) Continue thiamin supplementation. Consider adding folic acid and multivitamin. 2) Encourage optimal PO intake 3) Advance to 2g Na 80g hepatic diet when medically feasible 4) Refer to outpatient RD for weight management 5) Follow-up with hepatology, gastroenterology, and nephrology 6) Follow-up with social media sr strategy manager r/t ETOH dependency 7) Continue to monitor I&O, labs, and skin integrity Expected Outcomes/Goals: 1) appetite and labs to improve 2) GI symptoms to resolve 3) diet to advance 4) f/u in 3-5 days CC Plasma Assessment Blood Product Administration S: [id number] Date of Service: Jan 18, 2025 Billing Provider: JOE SAMUELS MD Common Visit Codes: [id number] INP/OBS CARE(HIGH) BRENDA HITCHCOCK RESIDENT Jan 18, 2025 14:40 JOE SAMUELS MD Jan 19, 2025 17:41
--- NOTE | 2025-01-18 14:58 | DVHPN2 ---
Progress Note Date Seen: Jan 18, 2025 Has the PT tested + for MRSA If YES, has PT been informed?: No Medical Necessity Reason Pt with a Central, PICC or Fol: Yes The following are medically ne: Central Line, Torres Catheter Subjective Patient reports: No new complaints, Feels better Review of Systems: Deferred Objective vital signs Vital Sign Date Time Temp Pulse Resp B/P (MAP) Pulse Ox O2 Delivery O2 Flow Rate FiO2 01/18/25 14:30 66 15 126/65 (85) 96 01/18/25 12:00 98.4 98.4 01/18/25 08:00 Nasal Cannula* 2 28 Total Intake and Output 01/17/25 01/17/25 01/18/25 15:00 23:00 07:00 Intake Total 222.50 ml 457.50 ml 240 ml Output Total 200 ml 240 ml Balance 222.50 ml 257.50 ml 0 ml medications Current Medications Medications Dose Ordered Sig/Bárbara Route Start Time Stop Time Status Last Admin Dose Admin Ondansetron HCl 4 mg Q4HP PRN IV 01/07/25 17:15 01/07/25 19:24 4 MG Docusate Sodium 100 mg BIDPRN PRN PO 01/07/25 17:15 Nitroglycerin 0.4 mg Q5MINP PRN SL 01/07/25 17:15 Pantoprazole Sodium 40 mg BID IV 01/08/25 22:00 01/18/25 10:30 40 MG Lactulose 15 ml DAILY PO 01/10/25 10:00 01/18/25 10:30 15 ML Bumetanide 2 mg Q6HR IV 01/10/25 10:30 01/18/25 12:37 2 MG Metolazone 15 mg DAILY PO 01/11/25 11:00 01/18/25 10:31 15 MG Norepinephrine Bitartrate 250 ml @ 3.75 mls/hr Q24H IV 01/11/25 18:15 01/15/25 13:22 7.5 MLS/HR Trazodone HCl 50 mg HS PO 01/12/25 22:00 01/17/25 22:24 50 MG Folic Acid 1 mg DAILY PO 01/12/25 10:00 01/18/25 10:30 1 MG Ciprofloxacin 200 ml @ 200 mls/hr DAILY IV 01/13/25 10:00 01/18/25 10:30 200 MLS/HR Midodrine 15 mg TID@0600,1200,1800 PO 01/13/25 18:00 01/18/25 12:38 15 MG Hydrocortisone Sodium Succinate 50 mg Q6HR IV 01/14/25 18:15 01/18/25 12:38 50 MG Epoetin Gilbert-epbx 10,000 unit TUTHSA@2100 SC 01/16/25 21:00 01/16/25 22:37 10,000 UNIT Prednisone 30 mg DAILY PO 01/17/25 10:00 01/18/25 10:31 30 MG Ursodiol 300 mg BID PO 01/16/25 22:00 01/18/25 10:31 300 MG Thiamine HCl 100 mg DAILY PO 01/19/25 10:00 UNV Enteral Nutritional Formula 240 ml BIDWM PO 01/18/25 18:00 UNV Examination: GENERAL:Normal, HEENT:Normal, NECK:Normal, LUNGS:Normal, CVS:Normal, ABDOMEN:Normal, MSK:Abnormal, SKIN:Abnormal, NEURO:Normal, :Normal laboratory and microbiology Laboratory Tests 01/18/25 05:13 Test 01/18/25 05:13 Range/Units Serum Glucose 158 H 74-106 mg/dL Microbiology Date/Time Source Procedure Growth Status 01/11/25 09:37 Blood Blood Culture - Final NO GROWTH AFTER 5 DAYS OF INCUBATION. Complete 01/11/25 00:20 Nose MRSA Screen - Final Complete 01/08/25 15:00 Ascities Fluid Gram Stain - Final Complete 01/08/25 15:00 Ascities Fluid Body Fluid Culture - Final Complete Problem List/Assessment/Plan Problem List/Assessment/Plan Acute kidney injury hepatorenal syndrome vs atn ckd II baseline etoh cirrhosis, liver masses severe anasarca and ascites anemia due to liver disease hyponatremia due to volume overload recs hd tomorrow Continue diuretics Low complements likely secondary to liver disease Plan discussed with: Patient, Spouse Dietary Evaluation Review Comments: 1) Continue thiamin supplementation. Consider adding folic acid and multivitamin. 2) Encourage optimal PO intake 3) Advance to 2g Na 80g hepatic diet when medically feasible 4) Refer to outpatient RD for weight management 5) Follow-up with hepatology, gastroenterology, and nephrology 6) Follow-up with social worker assistant r/t ETOH dependency 7) Continue to monitor I&O, labs, and skin integrity Expected Outcomes/Goals: 1) appetite and labs to improve 2) GI symptoms to resolve 3) diet to advance 4) f/u in 3-5 days CC Plasma Assessment Blood Product Administration S: [id number] EDEL HUANG MD Jan 18, 2025 14:58
--- NOTE | 2025-01-18 17:12 | DVHPN2 ---
Progress Note Date Seen: Jan 18, 2025 Resident Creating Document: MILE LORA RESIDENT Has the PT tested + for MRSA If YES, has PT been informed?: No Medical Necessity Reason Pt with a Central, PICC or Fol: Yes The following are medically ne: Central Line, Torres Catheter Subjective Review of Systems 38 F with severe anemia, fibroids, chronic liver disease, CKD admitted for abdominal pain, had liver bx, started on HD per renal. No new complaints, patient is awake and alert She does admit to relapsing to drinking prior to this admission Ammonia elevated to 49. Increasing the dose of lactulose to 30 mL per day Patient is able to tolerate diet and denies any significant abdominal pain. Liver biopsy results are still pending. Objective vital signs Vital Sign Date Time Temp Pulse Resp B/P (MAP) Pulse Ox O2 Delivery O2 Flow Rate FiO2 01/18/25 14:30 66 15 126/65 (85) 96 01/18/25 12:00 98.4 98.4 01/18/25 08:00 Nasal Cannula* 2 28 Total Intake and Output 01/17/25 01/17/25 01/18/25 15:00 23:00 07:00 Intake Total 222.50 ml 457.50 ml 240 ml Output Total 200 ml 240 ml Balance 222.50 ml 257.50 ml 0 ml medications Current Medications Medications Dose Ordered Sig/Bárbara Route Start Time Stop Time Status Last Admin Dose Admin Ondansetron HCl 4 mg Q4HP PRN IV 01/07/25 17:15 01/07/25 19:24 4 MG Docusate Sodium 100 mg BIDPRN PRN PO 01/07/25 17:15 Nitroglycerin 0.4 mg Q5MINP PRN SL 01/07/25 17:15 Pantoprazole Sodium 40 mg BID IV 01/08/25 22:00 01/18/25 10:30 40 MG Lactulose 15 ml DAILY PO 01/10/25 10:00 01/18/25 10:30 15 ML Bumetanide 2 mg Q6HR IV 01/10/25 10:30 01/18/25 12:37 2 MG Metolazone 15 mg DAILY PO 01/11/25 11:00 01/18/25 10:31 15 MG Norepinephrine Bitartrate 250 ml @ 3.75 mls/hr Q24H IV 01/11/25 18:15 01/15/25 13:22 7.5 MLS/HR Trazodone HCl 50 mg HS PO 01/12/25 22:00 01/17/25 22:24 50 MG Folic Acid 1 mg DAILY PO 01/12/25 10:00 01/18/25 10:30 1 MG Ciprofloxacin 200 ml @ 200 mls/hr DAILY IV 01/13/25 10:00 01/18/25 10:30 200 MLS/HR Midodrine 15 mg TID@0600,1200,1800 PO 01/13/25 18:00 01/18/25 12:38 15 MG Hydrocortisone Sodium Succinate 50 mg Q6HR IV 01/14/25 18:15 01/18/25 12:38 50 MG Epoetin Gilbert-epbx 10,000 unit TUTHSA@2100 SC 01/16/25 21:00 01/16/25 22:37 10,000 UNIT Prednisone 30 mg DAILY PO 01/17/25 10:00 01/18/25 10:31 30 MG Ursodiol 300 mg BID PO 01/16/25 22:00 01/18/25 10:31 300 MG Thiamine HCl 100 mg DAILY PO 01/19/25 10:00 Enteral Nutritional Formula 240 ml BIDWM PO 01/18/25 18:00 Examination Morbidly obese female patient lying in the bed, appears sick, right tunneled catheter General: Morbidly obese,, afebrile, palor, scleral icterus, Abdomen: Soft, distended, nontender normoactive bowel sounds, no rebound tenderness, no organomegaly, no masses laboratory and microbiology Laboratory Tests 01/18/25 05:13 Test 01/18/25 05:13 Range/Units Serum Glucose 158 H 74-106 mg/dL Microbiology Date/Time Source Procedure Growth Status 01/11/25 09:37 Blood Blood Culture - Final NO GROWTH AFTER 5 DAYS OF INCUBATION. Complete 01/11/25 00:20 Nose MRSA Screen - Final Complete 01/08/25 15:00 Ascities Fluid Gram Stain - Final Complete 01/08/25 15:00 Ascities Fluid Body Fluid Culture - Final Complete Problem List/Assessment/Plan Problem List/Assessment/Plan Assessment 1. Decompensated alcoholic cirrhosis with severe ascites, coagulopathy, and hyperbilirubinemia (MELD ~35)., Carterey DF score is 40.4 which is poor prognosis/ONGOING IV CORTICOSTEROIDS 2. Multiple hepatic lesions, high suspicion for metastatic malignancy (CEA elevated, AFP normal), pathology pending. Elevated CA 125 of 527 suggests peritoneal or gynecological source, increased CEA suggest colorectal source./awaiting OBGYN input 3. Hepatorenal syndrome ongoing HD. 4. Severe ascites and anasarca improving with HD and paracentesis. 5. Acute on chronic GI bleed (melena) positive stool occult blood, anemia requiring transfusion. 6. Severe anemia secondary to chronic liver disease and GI bleeding./anemia of chronic disease/hemoglobin stable at 8.0 7. Pelvic mass (fibroid vs endometrioma) needs VICTIM WITNESS ADMINISTRATOR-oncology follow-up. 8. Severe malnutrition on clear liquids, receiving high-protein oral supplementation. 9. Coagulopathy of liver disease/elevated INR PT and APTT/given vitamin K IV once/monitor for bleeding Plan Gastrointestinal / Hepatic Continue prednisolone 40 mg p.o. daily daily for alcohol hepatitis. Discontinue hydrocortisone Add ursodiol 300 mg p.o. twice a day Administered a dose of vitamin K IV Tapering dose of steroids Hypotension likely due to underlying chronic liver disease Monitor labs Await liver biopsy results hopefully we should have report by next week * Continue monitoring post-liver biopsy for bleeding. * Discontinue octerotide * Maintain Pantoprazole IV BID for GI bleed prophylaxis. * Avoid hepatotoxic medications and opioids (alphonso. morphine). * Use non-opioid analgesics for RUQ pain. Continue lactulose 30 mL * Plan for EGD and colonoscopy once hemodynamically stable to evaluate varices and rule out colorectal malignancy. * Continue SBP prophylaxis with IV ciprofloxacin daily. * Monitor LFTs, INR, CBC daily. * Pending liver biopsy pathology to guide oncology referral. OBGYN consult for fell pelvic mass, CA 125 correlation Ascites Reinforce RLQ site dressing, monitor for infection signs. * Continue fluid and sodium restriction. * Continue triple diuretics (Tolvaptan, Bumetanide, Metolazone) per nephrology. * Monitor paracentesis site for infection; apply dressing. * Repeat paracentesis PRN for recurrent tense ascites. Nutrition * Continue soft diet; advance as tolerated. * Monitor intake and weight daily. * Consider nutrition consult and TPN if oral intake insufficient. Oncology * Early oncology consult once biopsy results available. * Evaluate for possible metastatic colorectal cancer vs HCC. Hematology * PRBC transfusion PRN to maintain Hgb >8.0. * Continue Epoetin Gilbert-epbx SC protocol. * Monitor platelets, INR daily. Infectious Disease * Continue IV antibiotics (ciprofloxacin) for SBP prophylaxis. * Monitor cultures. Case discussed in detail with the attending physician, including the clinical presentation, diagnostic workup, and comprehensive management plan. The patient was present for the discussion and demonstrated understanding of her condition and the proposed plan. Plan discussed with: Patient Dietary Evaluation Review Comments: 1) Continue thiamin supplementation. Consider adding folic acid and multivitamin. 2) Encourage optimal PO intake 3) Advance to 2g Na 80g hepatic diet when medically feasible 4) Refer to outpatient RD for weight management 5) Follow-up with hepatology, gastroenterology, and nephrology 6) Follow-up with social work therapist r/t ETOH dependency 7) Continue to monitor I&O, labs, and skin integrity Expected Outcomes/Goals: 1) appetite and labs to improve 2) GI symptoms to resolve 3) diet to advance 4) f/u in 3-5 days CC Plasma Assessment Blood Product Administration S: [id number] MILE LORA RESIDENT Jan 18, 2025 17:12
[2025-01-18] MEDS: phytonadione 10 MG in SODIUM CHL 0.9% 50 ML IV ONE (17:26)
[2025-01-18] MEDS: LACTULOSE 20Gm/30ML SOLN PO SCH (17:49)
[2025-01-18] MEDS: Ensure HIGH Protein Chocolate 8oz Bottle PO SCH (18:00)
--- NOTE | 2025-01-18 20:02 | DVH ---
Date: 01/18/2025 06:18 PM Examination: XY KUB ABDOMEN SINGLE VIEW History: ABD PAIN Comparison: CT CT AB PEL WO CON-NO ORAL OR IV on DOS: 01/08/25, US KIDNEY on DOS: 01/07/25, US ABDOMEN L IMITED on DOS: 01/07/25, US PELVIC on DOS: 08/25/24, US LIVER on DOS: 08/25/24 TECHNIQUE: Frontal views of the abdomen was obtained. FINDINGS: Bowel gas pattern is unremarkable. The lung bases are unremarkable. No acute osseous abnormality identified. IMPRESSION: Nonobstructive bowel gas pattern. Large stool burden.
[2025-01-19] VITALS (24 sets, daily range): BP systolic 96–130; BP diastolic 39–72; PULSE 56–75; RESP 11–21; TEMP 97.8–98.4; O2SAT 95–99
[2025-01-19 05:13] LABS: Hemoglobin 8.2 g/dL (12.2-16.2)
[2025-01-19 05:14] LABS: Hematocrit 24.5 % (36.0-46.0); Mean Corpuscular Hemoglobin 29.1 pg (28.0-32.0); Mean Corpuscular Volume 87.2 fL (80.0-100.0); Nucleated Red Blood Cells % 0.1 %
[2025-01-19 05:30] LABS: INR 1.61 (0.9-1.15); Partial Thromboplastin Time 33.3 SEC (24.5-34.5); Prothrombin Time 16.3 sec (9.3-11.8)
[2025-01-19 05:33] LABS: Albumin 3.3 g/dL (3.2-4.8); Alkaline Phosphatase 66 U/L (46-116); Anion Gap 17 (5-15); BUN/Creatinine Ratio 11.4 (10.0-20.0); Calcium 9.0 mg/dL (8.7-10.4); Carbon Dioxide 23 mmol/L (20-31); Chloride 98 mmol/L (98-107); Sodium 138 mmol/L (136-145); Total Protein 7.0 g/dL (5.7-8.2)
[2025-01-19 05:35] LABS: Alanine Aminotransferase 40 U/L (7-40); Bilirubin, Total 7.5 mg/dL (0.2-1.0); Glucose 151 mg/dL (74-106); Potassium 3.4 mmol/L (3.5-5.1)
[2025-01-19 05:37] LABS: Blood Urea Nitrogen 80 mg/dL (9-23)
[2025-01-19 05:48] LABS: Anisocytosis Slight
[2025-01-19] MEDS: Nepro With Carbsteady ButterPecan 8oz Carton PO SCH (10:00)
[2025-01-19] MEDS: NYSTATIN TOPICAL POWDER 15GM TOP SCH (10:30)
[2025-01-19] MEDS: THIAMINE HCL 100 MG TAB PO SCH (10:56)
[2025-01-19] MEDS: ALBUMIN 25% 100 ML IV PRN (11:30)
--- NOTE | 2025-01-19 14:45 | DVHPN2 ---
Progress Note Date Seen: Jan 19, 2025 Has the PT tested + for MRSA If YES, has PT been informed?: No Medical Necessity Reason Pt with a Central, PICC or Fol: Yes The following are medically ne: Central Line, Torres Catheter Subjective Patient reports: No new complaints Review of Systems: HEENT:Normal, CVS:Normal, RESPIRATORY:Normal, GI:Normal, :Normal, MSK:Abnormal, NEURO:Normal Objective vital signs Vital Sign Date Time Temp Pulse Resp B/P (MAP) Pulse Ox O2 Delivery O2 Flow Rate FiO2 01/19/25 12:00 64 01/19/25 12:00 98.4 14 124/60 (81) 98 98.4 01/19/25 08:00 Nasal Cannula* 2 28 Total Intake and Output 01/18/25 01/18/25 01/19/25 15:00 23:00 07:00 Intake Total 200 ml 351 ml 40 ml Output Total 300 ml 400 ml Balance 200 ml 51 ml -360 ml medications Current Medications Medications Dose Ordered Sig/Bárbara Route Start Time Stop Time Status Last Admin Dose Admin Ondansetron HCl 4 mg Q4HP PRN IV 01/07/25 17:15 01/07/25 19:24 4 MG Docusate Sodium 100 mg BIDPRN PRN PO 01/07/25 17:15 Nitroglycerin 0.4 mg Q5MINP PRN SL 01/07/25 17:15 Pantoprazole Sodium 40 mg BID IV 01/08/25 22:00 01/18/25 21:53 40 MG Bumetanide 2 mg Q6HR IV 01/10/25 10:30 01/19/25 06:38 2 MG Metolazone 15 mg DAILY PO 01/11/25 11:00 01/18/25 10:31 15 MG Norepinephrine Bitartrate 250 ml @ 3.75 mls/hr Q24H IV 01/11/25 18:15 01/15/25 13:22 7.5 MLS/HR Trazodone HCl 50 mg HS PO 01/12/25 22:00 01/18/25 21:53 50 MG Folic Acid 1 mg DAILY PO 01/12/25 10:00 01/18/25 10:30 1 MG Ciprofloxacin 200 ml @ 200 mls/hr DAILY IV 01/13/25 10:00 01/18/25 10:30 200 MLS/HR Midodrine 15 mg TID@0600,1200,1800 PO 01/13/25 18:00 01/19/25 11:49 15 MG Epoetin Gilbert-epbx 10,000 unit TUTHSA@2100 SC 01/16/25 21:00 01/16/25 22:37 10,000 UNIT Prednisone 30 mg DAILY PO 01/17/25 10:00 01/19/25 10:57 30 MG Ursodiol 300 mg BID PO 01/16/25 22:00 01/19/25 10:56 300 MG Thiamine HCl 100 mg DAILY PO 01/19/25 10:00 01/19/25 10:56 100 MG Lactulose 30 ml DAILY PO 01/18/25 17:15 01/18/25 17:49 30 ML Enteral Nutritional Formula 240 ml BID PO 01/19/25 10:00 Nystatin 1 applic BID TOP 01/19/25 10:30 Examination: GENERAL:Normal, HEENT:Normal, NECK:Normal, LUNGS:Abnormal, CVS:Normal, ABDOMEN:Normal, MSK:Abnormal, SKIN:Abnormal, NEURO:Normal, :Normal laboratory and microbiology Laboratory Tests 01/19/25 04:40 Test 01/19/25 04:40 Range/Units Serum Glucose 151 H 74-106 mg/dL Microbiology Date/Time Source Procedure Growth Status 01/11/25 09:37 Blood Blood Culture - Final NO GROWTH AFTER 5 DAYS OF INCUBATION. Complete 01/11/25 00:20 Nose MRSA Screen - Final Complete 01/08/25 15:00 Ascities Fluid Gram Stain - Final Complete 01/08/25 15:00 Ascities Fluid Body Fluid Culture - Final Complete Problem List/Assessment/Plan Problem List/Assessment/Plan Acute kidney injury hepatorenal syndrome vs atn ckd II baseline etoh cirrhosis, liver masses severe anasarca and ascites anemia due to liver disease hyponatremia due to volume overload recs hd tomorrow for solute clearance Continue diuretics Low complements likely secondary to liver disease s/p liver biopsy results pending Plan discussed with: Patient, Spouse My Orders My Orders Orders - EDEL HUANG MD Procedure Category Date Status Time Hemodialysis Orders ORDERS 01/20/25 Transmitted 04:00 Dietary Evaluation Review Comments: 1) Continue thiamin supplementation. Consider adding folic acid and multivitamin. 2) Encourage optimal PO intake 3) Advance to 2g Na 80g hepatic diet when medically feasible 4) Refer to outpatient RD for weight management 5) Follow-up with hepatology, gastroenterology, and nephrology 6) Follow-up with social work assistant r/t ETOH dependency 7) Continue to monitor I&O, labs, and skin integrity Expected Outcomes/Goals: 1) appetite and labs to improve 2) GI symptoms to resolve 3) diet to advance 4) f/u in 3-5 days CC Plasma Assessment Blood Product Administration S: [id number] EDEL HUANG MD Jan 19, 2025 14:45
--- NOTE | 2025-01-19 15:13 | DVHPN2 ---
Progress Note Date Seen: Jan 19, 2025 Resident Creating Document: MILE LORA RESIDENT Has the PT tested + for MRSA If YES, has PT been informed?: No Medical Necessity Reason Pt with a Central, PICC or Fol: Yes The following are medically ne: Central Line, Torres Catheter Subjective Review of Systems The patient remains admitted in the ICU for ongoing management of acute on chronic liver failure with underlying decompensated cirrhosis, complicated by hyperbilirubinemia, hepatic encephalopathy risk, ascites post paracentesis, anemia of chronic disease, thrombocytopenia, ESRD on hemodialysis. Today's progress- Undergoing scheduled hemodialysis today Echocardiogram was normal. Antibiotics continuing with IV ciprofloxacin for SBP prophylaxis. Steroid regimen adjustment discontinued methylprednisolone IV and hydrocortisone sodium 50 mg IV q.6h started prednisolone 40 mg p.o. for advanced liver disease. Complement levels low autoimmune workup negative and hepatitis BC serologies negative. Hemoglobin stable at 8.2 LFTs are trending up, total bilirubin is at 7.5, platelets are low at 109. , WBC count is elevated at 15.5 high most likely due to steroids, direct component elevated. Ammonia increased from 49-37 since yesterday. Diet advanced to soft diet, tolerating without nausea or vomiting. Liver biopsy results : ULTRASOUND-GUIDED CORE BIOPSY REVEALED STEATOHEPATITIS WITH CIRRHOSIS NODULES DEMONSTRATED PARTIAL ENDOTHELIALIZATION OF SINUSITIS, RAISING THE POSSIBILITY OF DYSPLASTIC NODULES CAN NOT EXCLUDE NEOPLASTIC PROCESS. Objective vital signs Vital Sign Date Time Temp Pulse Resp B/P (MAP) Pulse Ox O2 Delivery O2 Flow Rate FiO2 01/19/25 12:00 64 01/19/25 12:00 98.4 14 124/60 (81) 98 98.4 01/19/25 08:00 Nasal Cannula* 2 28 Total Intake and Output 01/18/25 01/18/25 01/19/25 15:00 23:00 07:00 Intake Total 200 ml 351 ml 40 ml Output Total 300 ml 400 ml Balance 200 ml 51 ml -360 ml medications Current Medications Medications Dose Ordered Sig/Bárbara Route Start Time Stop Time Status Last Admin Dose Admin Ondansetron HCl 4 mg Q4HP PRN IV 01/07/25 17:15 01/07/25 19:24 4 MG Docusate Sodium 100 mg BIDPRN PRN PO 01/07/25 17:15 Nitroglycerin 0.4 mg Q5MINP PRN SL 01/07/25 17:15 Pantoprazole Sodium 40 mg BID IV 01/08/25 22:00 01/18/25 21:53 40 MG Bumetanide 2 mg Q6HR IV 01/10/25 10:30 01/19/25 06:38 2 MG Metolazone 15 mg DAILY PO 01/11/25 11:00 01/18/25 10:31 15 MG Norepinephrine Bitartrate 250 ml @ 3.75 mls/hr Q24H IV 01/11/25 18:15 01/15/25 13:22 7.5 MLS/HR Trazodone HCl 50 mg HS PO 01/12/25 22:00 01/18/25 21:53 50 MG Folic Acid 1 mg DAILY PO 01/12/25 10:00 01/18/25 10:30 1 MG Ciprofloxacin 200 ml @ 200 mls/hr DAILY IV 01/13/25 10:00 01/18/25 10:30 200 MLS/HR Midodrine 15 mg TID@0600,1200,1800 PO 01/13/25 18:00 01/19/25 11:49 15 MG Epoetin Gilbert-epbx 10,000 unit TUTHSA@2100 MD 01/16/25 21:00 01/16/25 22:37 10,000 UNIT Prednisone 30 mg DAILY PO 01/17/25 10:00 01/19/25 10:57 30 MG Ursodiol 300 mg BID PO 01/16/25 22:00 01/19/25 10:56 300 MG Thiamine HCl 100 mg DAILY PO 01/19/25 10:00 01/19/25 10:56 100 MG Lactulose 30 ml DAILY PO 01/18/25 17:15 01/18/25 17:49 30 ML Enteral Nutritional Formula 240 ml BID PO 01/19/25 10:00 Nystatin 1 applic BID TOP 01/19/25 10:30 Examination Morbidly obese female patient lying in the bed, appears sick, right tunneled catheter General: Morbidly obese,, afebrile, palor, scleral icterus, Abdomen: Soft, distended, nontender normoactive bowel sounds, no rebound tenderness, no organomegaly, no masses laboratory and microbiology Laboratory Tests 01/19/25 04:40 Test 01/19/25 04:40 Range/Units Serum Glucose 151 H 74-106 mg/dL Microbiology Date/Time Source Procedure Growth Status 01/11/25 09:37 Blood Blood Culture - Final NO GROWTH AFTER 5 DAYS OF INCUBATION. Complete 01/11/25 00:20 Nose MRSA Screen - Final Complete 01/08/25 15:00 Ascities Fluid Gram Stain - Final Complete 01/08/25 15:00 Ascities Fluid Body Fluid Culture - Final Complete Problem List/Assessment/Plan Problem List/Assessment/Plan Assessment 1. Decompensated alcoholic cirrhosis with severe ascites, coagulopathy, and hyperbilirubinemia (MELD ~35)., Maddrey DF score is 40.4 which is poor prognosis/ONGOING IV CORTICOSTEROIDS 2. Multiple hepatic lesions, high suspicion for metastatic malignancy (CEA elevated, AFP normal), Elevated CA 125 of 527 suggests peritoneal or gynecological source, increased CEA suggest colorectal source./awaiting OBGYN input/POSSIBLE DYSPLASTIC NODULES PARTIAL ENDOTHELIALIZATION NOTED, WARRANTS CORRELATION WITH IMAGING CT OR MRI LIVER PROTOCOL AND CONSIDERATION FOR TARGETED RE-BIOPSY. 3. Hepatorenal syndrome ongoing HD. 4. Severe ascites and anasarca improving with HD and paracentesis. 5. Acute on chronic GI bleed (melena) positive stool occult blood, anemia requiring transfusion. 6. Severe anemia secondary to chronic liver disease and GI bleeding./anemia of chronic disease/hemoglobin stable at 8.0 7. Pelvic mass (fibroid vs endometrioma) needs PATTERN PUNCHER-oncology follow-up. 8. Severe malnutrition on clear liquids, receiving high-protein oral supplementation. 9. Coagulopathy of liver disease/elevated INR PT and APTT/given vitamin K IV once/monitor for bleeding Plan Gastrointestinal / Hepatic Coordinate with Radiology for contrast enhanced MRI or CT liver protocol to assess for HCC versus dysplastic nodules. Continue prednisolone 40 mg p.o. daily daily for alcohol hepatitis. Discontinue hydrocortisone Add ursodiol 300 mg p.o. twice a day Tapering dose of steroids Hypotension likely due to underlying chronic liver disease Monitor labs Await liver biopsy results hopefully we should have report by next week * Continue monitoring post-liver biopsy for bleeding. * Discontinue octerotide * Maintain Pantoprazole IV BID for GI bleed prophylaxis. * Avoid hepatotoxic medications and opioids (alphonso. morphine). * Use non-opioid analgesics for RUQ pain. Continue lactulose 30 mL * Plan for EGD and colonoscopy once hemodynamically stable to evaluate varices and rule out colorectal malignancy. * Continue SBP prophylaxis with IV ciprofloxacin daily. * Monitor LFTs, INR, CBC daily. * Pending liver biopsy pathology to guide oncology referral. OBGYN consult for fell pelvic mass, CA 125 correlation Ascites Reinforce RLQ site dressing, monitor for infection signs. * Continue fluid and sodium restriction. * Continue triple diuretics (Tolvaptan, Bumetanide, Metolazone) per nephrology. * Monitor paracentesis site for infection; apply dressing. * Repeat paracentesis PRN for recurrent tense ascites. Nutrition * Continue soft diet; advance as tolerated. * Monitor intake and weight daily. * Consider nutrition consult and TPN if oral intake insufficient. Oncology * Early oncology consult once biopsy results available. * Evaluate for possible metastatic colorectal cancer vs HCC. Hematology * PRBC transfusion PRN to maintain Hgb >8.0. * Continue Epoetin Gilbert-epbx SC protocol. * Monitor platelets, INR daily. Infectious Disease * Continue IV antibiotics (ciprofloxacin) for SBP prophylaxis. * Monitor cultures. Case discussed in detail with the attending physician, including the clinical presentation, diagnostic workup, and comprehensive management plan. The patient was present for the discussion and demonstrated understanding of her condition and the proposed plan. Plan discussed with: Patient My Orders My Orders Orders - MILE LORA RESIDENT Procedure Category Date Status Time Lactulose Oral PHA 01/18/25 In Process 17:15 Dietary Evaluation Review Comments: 1) Continue thiamin supplementation. Consider adding folic acid and multivitamin. 2) Encourage optimal PO intake 3) Advance to 2g Na 80g hepatic diet when medically feasible 4) Refer to outpatient RD for weight management 5) Follow-up with hepatology, gastroenterology, and nephrology 6) Follow-up with social sciences chair r/t ETOH dependency 7) Continue to monitor I&O, labs, and skin integrity Expected Outcomes/Goals: 1) appetite and labs to improve 2) GI symptoms to resolve 3) diet to advance 4) f/u in 3-5 days CC Plasma Assessment Blood Product Administration S: [id number] MILE LORA RESIDENT Jan 19, 2025 15:13
--- NOTE | 2025-01-19 17:33 | DVHPNRES ---
Progress Note Date Seen: Jan 19, 2025 Resident Creating Document: BRENDA HITCHCOCK RESIDENT Has the PT tested + for MRSA If YES, has PT been informed?: No Medical Necessity Reason Pt with a Central, PICC or Fol: Yes The following are medically ne: Central Line, Torres Catheter Subjective Review of Systems Patient is a 38-year-old female with past medical history of chronic severe anemia which required blood transfusions via before in June on August, uterine fibroids, chronic liver ascites who came to the ED with chief complaint of severe diffuse abdominal pain 8 in intensity, which radiates to the back, gradual increase in shortness of breath, and nausea since the past week. She complained of severe bloating and abdominal swelling since last Saturday, dry mouth, dry cough, dizziness, and bilateral leg pain due to edema. but he denies any hematemesis, headaches, diarrhea, dysuria, hematuria, but she complains her stool is darker than usual. Patient was supposed to follow-up with OBGYN for possible hysterectomy but did not. She states that she had no prior diagnosis of cirrhosis but was told during her June 2024 admission that she had liver and kidney damage. 01/11 - Patient seen and examined at the bedside. Reports feeling weak, IR placed tunneled catheter for dialysis. Dopamine started, patient did not tolerate, HR into 160s, decreased with vagal maneuvers. Discontinue dopamine. Continue diuresis. Radiologist consulted for liver biopsy. 01/12 - patient seen and examined, underwent HD last night 2.4 L taken out, underwent hemodialysis today, 2 L taken off. Patient is requiring Levophed during hemodialysis. Pending liver biopsy. 01/13 - patient underwent hemodialysis this morning. Midodrine increased to 15 mg TID. Right tunneled catheter intermittently bleeding, Dermabond in place. 01/14-patient seen and examined, right tunneled catheter clotted blood seen. Diet increased to soft diet. Echocardiogram ordered, Levophed 01/15 - patient underwent hemodialysis, 2.6 L taken out, started prednisone 40mg daily. 01/16 - patient seen and examined, weaned off IV pressors, GI decreased prednisone to 30 mg daily, ursodiol daily, MAP goal > 60. 01/18 - patient off pressors, underwent hemodialysis 01/17 01/19 - downgraded to tele, dc hydrocortisone Objective vital signs Vital Sign Date Time Temp Pulse Resp B/P (MAP) Pulse Ox O2 Delivery O2 Flow Rate FiO2 01/19/25 16:00 72 01/19/25 16:00 98.1 12 119/67 (84) 96 98.1 01/19/25 08:00 Nasal Cannula* 2 28 Total Intake and Output 01/18/25 01/18/25 01/19/25 15:00 23:00 07:00 Intake Total 200 ml 351 ml 40 ml Output Total 300 ml 400 ml Balance 200 ml 51 ml -360 ml medications Current Medications Medications Dose Ordered Sig/Bárbara Route Start Time Stop Time Status Last Admin Dose Admin Ondansetron HCl 4 mg Q4HP PRN IV 01/07/25 17:15 01/07/25 19:24 4 MG Docusate Sodium 100 mg BIDPRN PRN PO 01/07/25 17:15 Nitroglycerin 0.4 mg Q5MINP PRN SL 01/07/25 17:15 Pantoprazole Sodium 40 mg BID IV 01/08/25 22:00 01/18/25 21:53 40 MG Bumetanide 2 mg Q6HR IV 01/10/25 10:30 01/19/25 06:38 2 MG Metolazone 15 mg DAILY PO 01/11/25 11:00 01/18/25 10:31 15 MG Norepinephrine Bitartrate 250 ml @ 3.75 mls/hr Q24H IV 01/11/25 18:15 01/15/25 13:22 7.5 MLS/HR Trazodone HCl 50 mg HS PO 01/12/25 22:00 01/18/25 21:53 50 MG Folic Acid 1 mg DAILY PO 01/12/25 10:00 01/18/25 10:30 1 MG Ciprofloxacin 200 ml @ 200 mls/hr DAILY IV 01/13/25 10:00 01/18/25 10:30 200 MLS/HR Midodrine 15 mg TID@0600,1200,1800 PO 01/13/25 18:00 01/19/25 11:49 15 MG Epoetin Gilbert-epbx 10,000 unit TUTHSA@2100 SC 01/16/25 21:00 01/16/25 22:37 10,000 UNIT Prednisone 30 mg DAILY PO 01/17/25 10:00 01/19/25 10:57 30 MG Ursodiol 300 mg BID PO 01/16/25 22:00 01/19/25 10:56 300 MG Thiamine HCl 100 mg DAILY PO 01/19/25 10:00 01/19/25 10:56 100 MG Lactulose 30 ml DAILY PO 01/18/25 17:15 01/18/25 17:49 30 ML Enteral Nutritional Formula 240 ml BID PO 01/19/25 10:00 Nystatin 1 applic BID TOP 01/19/25 10:30 Examination Morbidly obese female patient lying in the bed, appears sick, right tunneled catheter General: Morbidly obese,, afebrile, palor, scleral icterus, Cardiovascular: Tachycardic but regular S1 and S2. No murmurs, gallops or rubs. No JVD elevation. resolving 2+ pedal pitting edema bilaterally Respiratory: Bilateral decreased air entry heard on auscultation, on RA Abdomen: Soft, distended, nontender normoactive bowel sounds, no rebound tenderness, no organomegaly, no masses Genitourinary: Deferred, Torres catheter seen draining urine MSK/skin: Mobilizes 4 limbs. Skin is dry and warm Neurological: No motor, no sensitive deficits, normal speech. Pupils are isocoric and reactive. Psych/Mental Status: A/Ox3 laboratory and microbiology Laboratory Tests 01/19/25 04:40 Test 01/19/25 04:40 Range/Units Serum Glucose 151 H 74-106 mg/dL Microbiology Date/Time Source Procedure Growth Status 01/11/25 09:37 Blood Blood Culture - Final NO GROWTH AFTER 5 DAYS OF INCUBATION. Complete 01/11/25 00:20 Nose MRSA Screen - Final Complete 01/08/25 15:00 Ascities Fluid Gram Stain - Final Complete 01/08/25 15:00 Ascities Fluid Body Fluid Culture - Final Complete Labs and/or images reviewed: Labs reviewed by me, Image(s) reviewed by me Problem List/Assessment/Plan Problem List/Assessment/Plan Generalized weakness secondary to acute blood loss anemia ? Upper GI bleed, esophageal varices Hypotension requiring pressor Possible metastatic liver disease - primary unknown s/p liver biopsy 01/12 Acute on chronic decompensated liver failure - meld score 35 - MDF - 40.9, [place] model tbd on 01/20 Chronic alcohol dependence Alcoholic withdrawal - CIWA less than 8 Discontinued IV octreotide drip IV pantoprazole b.i.d. GI consultation - DC IV Solu-Medrol 40 mg daily, DC octreotide, continue prednisone IR consulted for liver biopsy-patient underwent liver biopsy 01/12, pending results IV Levaquin switch to IV Cipro Midodrine 15 mg TID Completed hydrocortisone 50 mg q.6 hours 01/14 to 01/18 prednisone 30 mg daily, ursodiol daily Off pressors Beta Whit cant be given given possible variceal bleed Acute Kidney Injury likely hepatorenal syndrome vs. pre-renal azotemia -FENA 0.3% requiring hemodialysis hypervolemic hypotonic hyponatremia possibly secondary to cirrhosis Anion gap metabolic acidosis secondary to lactic acid Oliguria nephrology consulted - IV Bumex 2 mg q.6 hourly, metolazone, HD 01/11, 01/12, 01/13, 01/15, 01/17, possible tomorrow Radiology placed tunneled catheter today 01/11 Patient did not tolerate dopamine, heart rate into 160s Discontinued Tolvaptan 30 mg daily Pelvic mass ? 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 This may represent an exophytic fibroid versus possible endometrioma. CA 125 elevated # Gallstones , cholelithiasis- outpatient follow-up # History of miscarriage SCDs Renal diet R tunn cath 01/11 Drips: Levophed 0ff 01/16 telemetry unit Avoid morphine Plan discussed with patient, at bedside in which all questions have been answered Goals of care discussed with the patient for more than 20 minutes, full code status Case discussed with Dr. Samuels Plan discussed with: Patient, Spouse My Orders My Orders Orders - BRENDA HITCHCOCK RESIDENT Procedure Category Date Status Time Nutritional PHA 01/19/25 In Process Supplements (Nepro 10:00 Dietary Evaluation Review Comments: 1) Continue thiamin supplementation. Consider adding folic acid and multivitamin. 2) Encourage optimal PO intake 3) Advance to 2g Na 80g hepatic diet when medically feasible 4) Refer to outpatient RD for weight management 5) Follow-up with hepatology, gastroenterology, and nephrology 6) Follow-up with manager social services r/t ETOH dependency 7) Continue to monitor I&O, labs, and skin integrity Expected Outcomes/Goals: 1) appetite and labs to improve 2) GI symptoms to resolve 3) diet to advance 4) f/u in 3-5 days CC Plasma Assessment Blood Product Administration S: [id number] Date of Service: Jan 19, 2025 Billing Provider: JOE SAMUELS MD Common Visit Codes: [id number] INP/OBS CARE(HIGH) BRENDA HITCHCOCK RESIDENT Jan 19, 2025 17:33 JOE SAMUELS MD Jan 19, 2025 17:44
[2025-01-20] VITALS (37 sets, daily range): BP systolic 89–133; BP diastolic 33–70; PULSE 61–96; RESP 10–31; TEMP 98.2–99.4; O2SAT 92–100
[2025-01-20 05:29] LABS: Hematocrit 24.1 % (36.0-46.0); Hemoglobin 8.0 g/dL (12.2-16.2); Nucleated Red Blood Cells % 0.0 %
[2025-01-20 05:32] LABS: Mean Corpuscular Hemoglobin 28.7 pg (28.0-32.0); Mean Corpuscular Volume 85.9 fL (80.0-100.0)
[2025-01-20 05:39] LABS: Alanine Aminotransferase 38 U/L (7-40); Albumin 3.8 g/dL (3.2-4.8); Alkaline Phosphatase 74 U/L (46-116); Anion Gap 17 (5-15); BUN/Creatinine Ratio 11.8 (10.0-20.0); Calcium 9.1 mg/dL (8.7-10.4); Carbon Dioxide 22 mmol/L (20-31); Chloride 99 mmol/L (98-107); Magnesium 2.0 mg/dL (1.6-2.6); Sodium 138 mmol/L (136-145); Total Protein 7.3 g/dL (5.7-8.2)
[2025-01-20 05:51] LABS: Bilirubin, Total 6.8 mg/dL (0.2-1.0); Glucose 132 mg/dL (74-106); Potassium 3.4 mmol/L (3.5-5.1)
[2025-01-20 05:52] LABS: Blood Urea Nitrogen 93 mg/dL (9-23)
[2025-01-20 06:17] LABS: Anisocytosis Slight
[2025-01-20] MEDS: SODIUM CHL 0.9% 1000 ML BAG XX ONE (10:30)
[2025-01-20 10:35] LABS: INR 1.54 (0.9-1.15); Partial Thromboplastin Time 35.0 SEC (24.5-34.5); Prothrombin Time 15.6 sec (9.3-11.8)
[2025-01-20] MEDS: ALBUMIN 25% 100 ML IV PRN (10:40)
[2025-01-20] MEDS: ALBUMIN 25% 200 ML IV ONE (10:42)
[2025-01-20] MEDS: POTASSIUM CHL 20 Meq TABLET PO ONE (13:24)
--- NOTE | 2025-01-20 16:14 | DVH ---
ULTRASOUND ABDOMEN limited, 4 QUADRANTS INDICATION: FLUID CHECK Evaluate for ascites. TECHNIQUE: The four quadrants of the abdomen were scanned in pickett-scale to assess for the presence of ascites. N o solid organ assessment was performed. FINDINGS: Small volume ascites. Too small for paracentesis. IMPRESSIONS: Small volume ascites. Too small for paracentesis.
--- NOTE | 2025-01-20 16:31 | DVHPN2 ---
Progress Note Date Seen: Jan 20, 2025 Resident Creating Document: MILE LORA RESIDENT Has the PT tested + for MRSA If YES, has PT been informed?: No Medical Necessity Reason Pt with a Central, PICC or Fol: Yes The following are medically ne: Central Line, Torres Catheter Subjective Review of Systems TODAY'S PROGRESS She reports mild abdominal distention and bloating. Active vaginal bleeding continues. Rectal bleeding noted-nilsa streaking of blood, possible secondary to anal fissure or mucosal tear. CA 125 and CEA remain elevated. Patient is eating normally and tolerating diet. Bowel movements regular, no melena or hematemesis reported Underwent hemodialysis today with 2.5 L ultrafiltration. Ordered a IR guided paracentesis with abdominal ultrasound for ascites management. We will require a multiphasic MRI of the liver or PET scan for further characterization of cirrhotic/oncotic nodules. Oncology referral planned for imaging. Patient require higher level of care. Require close outpatient follow up from GI standpoint after discharge Objective vital signs Vital Sign Date Time Temp Pulse Resp B/P (MAP) Pulse Ox O2 Delivery O2 Flow Rate FiO2 01/20/25 14:00 76 01/20/25 14:00 14 118/55 (76) 98 01/20/25 12:00 99.0 99.0 01/20/25 08:00 Nasal Cannula* 2 28 Total Intake and Output 01/19/25 01/19/25 01/20/25 15:00 23:00 07:00 Intake Total 340 ml 200 ml Output Total 500 ml 200 ml Balance -160 ml 0 ml medications Current Medications Medications Dose Ordered Sig/Bárbara Route Start Time Stop Time Status Last Admin Dose Admin Ondansetron HCl 4 mg Q4HP PRN IV 01/07/25 17:15 01/07/25 19:24 4 MG Docusate Sodium 100 mg BIDPRN PRN PO 01/07/25 17:15 Nitroglycerin 0.4 mg Q5MINP PRN SL 01/07/25 17:15 Pantoprazole Sodium 40 mg BID IV 01/08/25 22:00 01/20/25 13:23 40 MG Bumetanide 2 mg Q6HR IV 01/10/25 10:30 01/20/25 06:46 2 MG Metolazone 15 mg DAILY PO 01/11/25 11:00 01/18/25 10:31 15 MG Norepinephrine Bitartrate 250 ml @ 3.75 mls/hr Q24H IV 01/11/25 18:15 01/20/25 12:00 3.75 MLS/HR Trazodone HCl 50 mg HS PO 01/12/25 22:00 01/19/25 22:11 50 MG Folic Acid 1 mg DAILY PO 01/12/25 10:00 01/20/25 13:24 1 MG Ciprofloxacin 200 ml @ 200 mls/hr DAILY IV 01/13/25 10:00 01/18/25 10:30 200 MLS/HR Midodrine 15 mg TID@0600,1200,1800 PO 01/13/25 18:00 01/20/25 11:14 15 MG Epoetin Gilbert-epbx 10,000 unit TUTHSA@2100 SC 01/16/25 21:00 01/19/25 21:00 10,000 UNIT Prednisone 30 mg DAILY PO 01/17/25 10:00 01/19/25 10:57 30 MG Ursodiol 300 mg BID PO 01/16/25 22:00 01/20/25 13:23 300 MG Thiamine HCl 100 mg DAILY PO 01/19/25 10:00 01/20/25 10:00 100 MG Lactulose 30 ml DAILY PO 01/18/25 17:15 01/20/25 13:24 30 ML Enteral Nutritional Formula 240 ml BID PO 01/19/25 10:00 01/20/25 10:00 240 ML Nystatin 1 applic BID TOP 01/19/25 10:30 01/20/25 10:00 1 APPLIC Albumin Human 100 ml @ 100 mls/hr PRN PRN IV 01/20/25 10:30 01/20/25 11:40 100 MLS/HR Examination General-chronically ill-appearing, hemodynamically stable Abdomen-mild distention, soft, no guarding or rebound, ascites present Skin-jaundice present laboratory and microbiology Laboratory Tests 01/20/25 04:37 Test 01/20/25 04:37 Range/Units Serum Glucose 132 H 74-106 mg/dL Microbiology Date/Time Source Procedure Growth Status 01/11/25 09:37 Blood Blood Culture - Final NO GROWTH AFTER 5 DAYS OF INCUBATION. Complete 01/11/25 00:20 Nose MRSA Screen - Final Complete 01/08/25 15:00 Ascities Fluid Gram Stain - Final Complete 01/08/25 15:00 Ascities Fluid Body Fluid Culture - Final Complete Problem List/Assessment/Plan Problem List/Assessment/Plan Assessment 1. Decompensated alcoholic cirrhosis with severe ascites, coagulopathy, and hyperbilirubinemia (MELD ~35)., Maddrey DF score is 40.4 which is poor prognosis/ONGOING IV CORTICOSTEROIDS 2. Multiple hepatic lesions, high suspicion for metastatic malignancy (CEA elevated, AFP normal), Elevated CA 125 of 527 suggests peritoneal or gynecological source, increased CEA suggest colorectal source./awaiting OBGYN input/POSSIBLE DYSPLASTIC NODULES PARTIAL ENDOTHELIALIZATION NOTED, WARRANTS CORRELATION WITH IMAGING CT OR MRI LIVER PROTOCOL AND CONSIDERATION FOR TARGETED RE-BIOPSY. 3. Hepatorenal syndrome ongoing HD. 4. Severe ascites and anasarca improving with HD and paracentesis. 5. Acute on chronic GI bleed (melena) positive stool occult blood, anemia requiring transfusion. 6. Severe anemia secondary to chronic liver disease and GI bleeding./anemia of chronic disease/hemoglobin stable at 8.0 7. Pelvic mass (fibroid vs endometrioma) needs GREENSKEEPER-oncology follow-up. 8. Severe malnutrition on clear liquids, receiving high-protein oral supplementation. 9. Coagulopathy of liver disease/elevated INR PT and APTT/given vitamin K IV once/monitor for bleeding Plan Gastrointestinal / Hepatic Requires multiphasic MRI liver protocol to assess hepatic nodules. Consider PET scan for staging and evaluation of possible metastatic disease Oncology referral required. Needs higher level of care. Ordered IR guided paracentesis with abdominal ultrasound. Send ascitic fluid for cell count, albumin, culture and cytology. Continue prednisolone 40 mg p.o. daily daily for alcohol hepatitis. Discontinue hydrocortisone Add ursodiol 300 mg p.o. twice a day Tapering dose of steroids Hypotension likely due to underlying chronic liver disease Monitor labs Await liver biopsy results hopefully we should have report by next week * Continue monitoring post-liver biopsy for bleeding. * Discontinue octerotide * Maintain Pantoprazole IV BID for GI bleed prophylaxis. * Avoid hepatotoxic medications and opioids (alphonso. morphine). * Use non-opioid analgesics for RUQ pain. Continue lactulose 30 mL * Plan for EGD and colonoscopy once hemodynamically stable to evaluate varices and rule out colorectal malignancy. * Continue SBP prophylaxis with IV ciprofloxacin daily. * Monitor LFTs, INR, CBC daily. OBGYN consult for fell pelvic mass, CA 125 correlation Ascites Reinforce RLQ site dressing, monitor for infection signs. * Continue fluid and sodium restriction. * Continue triple diuretics (Tolvaptan, Bumetanide, Metolazone) per nephrology. * Monitor paracentesis site for infection; apply dressing. * Repeat paracentesis PRN for recurrent tense ascites. Nutrition * Continue soft diet; advance as tolerated. * Monitor intake and weight daily. * Consider nutrition consult and TPN if oral intake insufficient. Oncology * Early oncology consult once biopsy results available. * Evaluate for possible metastatic colorectal cancer vs HCC. Hematology * PRBC transfusion PRN to maintain Hgb >8.0. * Continue Epoetin Gilbert-epbx SC protocol. * Monitor platelets, INR daily. Infectious Disease * Continue IV antibiotics (ciprofloxacin) for SBP prophylaxis. * Monitor cultures. Case discussed in detail with the attending physician, including the clinical presentation, diagnostic workup, and comprehensive management plan. The patient was present for the discussion and demonstrated understanding of her condition and the proposed plan. Plan discussed with: Patient Dietary Evaluation Review Comments: 1) Continue thiamin supplementation. Consider adding folic acid and multivitamin. 2) Encourage optimal PO intake 3) Advance to 2g Na 80g hepatic diet when medically feasible 4) Refer to outpatient RD for weight management 5) Follow-up with hepatology, gastroenterology, and nephrology 6) Follow-up with social worker psychiatric r/t ETOH dependency 7) Continue to monitor I&O, labs, and skin integrity Expected Outcomes/Goals: 1) appetite and labs to improve 2) GI symptoms to resolve 3) diet to advance 4) f/u in 3-5 days CC Plasma Assessment Blood Product Administration S: [id number] MILE LORA RESIDENT Jan 20, 2025 16:31
--- NOTE | 2025-01-20 17:00 | DVHPNRES ---
Progress Note Date Seen: Jan 20, 2025 Resident Creating Document: BRENDA HITCHCOCK RESIDENT Has the PT tested + for MRSA If YES, has PT been informed?: No Medical Necessity Reason Pt with a Central, PICC or Fol: Yes The following are medically ne: Central Line, Torres Catheter Subjective Review of Systems Patient is a 38-year-old female with past medical history of chronic severe anemia which required blood transfusions via before in June on August, uterine fibroids, chronic liver ascites who came to the ED with chief complaint of severe diffuse abdominal pain 8 in intensity, which radiates to the back, gradual increase in shortness of breath, and nausea since the past week. She complained of severe bloating and abdominal swelling since last Saturday, dry mouth, dry cough, dizziness, and bilateral leg pain due to edema. but he denies any hematemesis, headaches, diarrhea, dysuria, hematuria, but she complains her stool is darker than usual. Patient was supposed to follow-up with OBGYN for possible hysterectomy but did not. She states that she had no prior diagnosis of cirrhosis but was told during her June 2024 admission that she had liver and kidney damage. 01/11 - Patient seen and examined at the bedside. Reports feeling weak, IR placed tunneled catheter for dialysis. Dopamine started, patient did not tolerate, HR into 160s, decreased with vagal maneuvers. Discontinue dopamine. Continue diuresis. Radiologist consulted for liver biopsy. 01/12 - patient seen and examined, underwent HD last night 2.4 L taken out, underwent hemodialysis today, 2 L taken off. Patient is requiring Levophed during hemodialysis. Pending liver biopsy. 01/13 - patient underwent hemodialysis this morning. Midodrine increased to 15 mg TID. Right tunneled catheter intermittently bleeding, Dermabond in place. 01/14-patient seen and examined, right tunneled catheter clotted blood seen. Diet increased to soft diet. Echocardiogram ordered, Levophed 01/15 - patient underwent hemodialysis, 2.6 L taken out, started prednisone 40mg daily. 01/16 - patient seen and examined, weaned off IV pressors, GI decreased prednisone to 30 mg daily, ursodiol daily, MAP goal > 60. 01/18 - patient off pressors, underwent hemodialysis 01/17 01/19 -dc hydrocortisone. Liver biopsy shows steatohepatitis and cirrhosis, dysplasia can not be ruled out 01/20 - hemodialysis, patient requiring levophed 6, Had bowel movement, GI recommends MRI chest/abdomen/pelvis with contrast as outpatient. Objective vital signs Vital Sign Date Time Temp Pulse Resp B/P (MAP) Pulse Ox O2 Delivery O2 Flow Rate FiO2 01/20/25 14:00 76 01/20/25 14:00 14 118/55 (76) 98 01/20/25 12:00 99.0 99.0 01/20/25 08:00 Nasal Cannula* 2 28 Total Intake and Output 01/19/25 01/19/25 01/20/25 15:00 23:00 07:00 Intake Total 340 ml 200 ml Output Total 500 ml 200 ml Balance -160 ml 0 ml medications Current Medications Medications Dose Ordered Sig/Bárbara Route Start Time Stop Time Status Last Admin Dose Admin Ondansetron HCl 4 mg Q4HP PRN IV 01/07/25 17:15 01/07/25 19:24 4 MG Docusate Sodium 100 mg BIDPRN PRN PO 01/07/25 17:15 Nitroglycerin 0.4 mg Q5MINP PRN SL 01/07/25 17:15 Pantoprazole Sodium 40 mg BID IV 01/08/25 22:00 01/20/25 13:23 40 MG Bumetanide 2 mg Q6HR IV 01/10/25 10:30 01/20/25 06:46 2 MG Metolazone 15 mg DAILY PO 01/11/25 11:00 01/18/25 10:31 15 MG Norepinephrine Bitartrate 250 ml @ 3.75 mls/hr Q24H IV 01/11/25 18:15 01/20/25 12:00 3.75 MLS/HR Trazodone HCl 50 mg HS PO 01/12/25 22:00 01/19/25 22:11 50 MG Folic Acid 1 mg DAILY PO 01/12/25 10:00 01/20/25 13:24 1 MG Ciprofloxacin 200 ml @ 200 mls/hr DAILY IV 01/13/25 10:00 01/18/25 10:30 200 MLS/HR Midodrine 15 mg TID@0600,1200,1800 PO 01/13/25 18:00 01/20/25 11:14 15 MG Epoetin Gilbert-epbx 10,000 unit TUTHSA@2100 NE 01/16/25 21:00 01/19/25 21:00 10,000 UNIT Prednisone 30 mg DAILY PO 01/17/25 10:00 01/19/25 10:57 30 MG Ursodiol 300 mg BID PO 01/16/25 22:00 01/20/25 13:23 300 MG Thiamine HCl 100 mg DAILY PO 01/19/25 10:00 01/20/25 10:00 100 MG Lactulose 30 ml DAILY PO 01/18/25 17:15 01/20/25 13:24 30 ML Enteral Nutritional Formula 240 ml BID PO 01/19/25 10:00 01/20/25 10:00 240 ML Nystatin 1 applic BID TOP 01/19/25 10:30 01/20/25 10:00 1 APPLIC Albumin Human 100 ml @ 100 mls/hr PRN PRN IV 01/20/25 10:30 01/20/25 11:40 100 MLS/HR Examination Morbidly obese female patient lying in the bed, appears sick, right tunneled catheter General: Morbidly obese,, afebrile, palor, scleral icterus, Cardiovascular: Tachycardic but regular S1 and S2. No murmurs, gallops or rubs. No JVD elevation. resolving 2+ pedal pitting edema bilaterally Respiratory: Bilateral decreased air entry heard on auscultation, on RA Abdomen: Soft, distended, nontender normoactive bowel sounds, no rebound tenderness, no organomegaly, no masses Genitourinary: Deferred, Torres catheter seen draining urine MSK/skin: Mobilizes 4 limbs. Skin is dry and warm Neurological: No motor, no sensitive deficits, normal speech. Pupils are isocoric and reactive. Psych/Mental Status: A/Ox3 laboratory and microbiology Laboratory Tests 01/20/25 04:37 Test 01/20/25 04:37 Range/Units Serum Glucose 132 H 74-106 mg/dL Microbiology Date/Time Source Procedure Growth Status 01/11/25 09:37 Blood Blood Culture - Final NO GROWTH AFTER 5 DAYS OF INCUBATION. Complete 01/11/25 00:20 Nose MRSA Screen - Final Complete 01/08/25 15:00 Ascities Fluid Gram Stain - Final Complete 01/08/25 15:00 Ascities Fluid Body Fluid Culture - Final Complete Labs and/or images reviewed: Labs reviewed by me, Image(s) reviewed by me Problem List/Assessment/Plan Problem List/Assessment/Plan Generalized weakness secondary to acute blood loss anemia ? Upper GI bleed, esophageal varices Hypotension requiring pressor Possible metastatic liver disease - primary unknown s/p liver biopsy 01/12 Acute on chronic decompensated liver failure - meld score 35 - MDF - 40.9, [place] model 0.010 Chronic alcohol dependence Alcoholic withdrawal - CIWA less than 8 Discontinued IV octreotide drip IV pantoprazole b.i.d. GI consultation - DC IV Solu-Medrol 40 mg daily, DC octreotide, continue prednisone IR consulted for liver biopsy-patient underwent liver biopsy 01/12, pending results IV Levaquin switch to IV Cipro Midodrine 15 mg TID Completed hydrocortisone 50 mg q.6 hours 01/14 to 01/18 prednisone 30 mg daily, ursodiol daily Off pressors Beta Whit cant be given given possible variceal bleed Acute Kidney Injury likely hepatorenal syndrome vs. pre-renal azotemia -FENA 0.3% requiring hemodialysis hypervolemic hypotonic hyponatremia possibly secondary to cirrhosis Anion gap metabolic acidosis secondary to lactic acid Oliguria nephrology consulted - IV Bumex 2 mg q.6 hourly, metolazone, HD 01/11, 01/12, 01/13, 01/15, 01/17, 01/20 Radiology placed tunneled catheter today 01/11 Patient did not tolerate dopamine, heart rate into 160s Discontinued Tolvaptan 30 mg daily Pelvic mass ? Mass versus fibroid Abnormal uterine bleeding OBGYN consultation -[facility] for catheter finisher and inspector onc MRI showed 4.9 cm T2 hypointense structure in the posterior right hemipelvis. This may represent an exophytic fibroid versus possible endometrioma. CA 125 elevated # Gallstones , cholelithiasis- outpatient follow-up # History of miscarriage SCDs Renal diet R tunn cath 01/11 Drips: Levophed 06mcg Avoid morphine Plan discussed with patient, at bedside in which all questions have been answered Goals of care discussed with the patient for more than 20 minutes, full code status Case discussed with Dr. Samuels Plan discussed with: Patient, Spouse My Orders My Orders Orders - BRENDA HITCHCOCK RESIDENT Procedure Category Date Status Time Transfer Orders XFER 01/20/25 Transmitted 15:17 Abdomen Limited US 01/20/25 Resulted Dietary Evaluation Review Comments: 1) Continue thiamin supplementation. Consider adding folic acid and multivitamin. 2) Encourage optimal PO intake 3) Advance to 2g Na 80g hepatic diet when medically feasible 4) Refer to outpatient RD for weight management 5) Follow-up with hepatology, gastroenterology, and nephrology 6) Follow-up with social service manager r/t ETOH dependency 7) Continue to monitor I&O, labs, and skin integrity Expected Outcomes/Goals: 1) appetite and labs to improve 2) GI symptoms to resolve 3) diet to advance 4) f/u in 3-5 days CC Plasma Assessment Blood Product Administration S: [id number] Date of Service: Jan 20, 2025 Billing Provider: JOE SAMUELS MD Common Visit Codes: [id number] INP/OBS CARE(HIGH) BRENDA HITCHCOCK RESIDENT Jan 20, 2025 17:00 JOE SAMUELS MD Jan 20, 2025 23:53
--- NOTE | 2025-01-20 18:32 | DVHPN2 ---
Progress Note Date Seen: Jan 20, 2025 Has the PT tested + for MRSA If YES, has PT been informed?: No Medical Necessity Reason Pt with a Central, PICC or Fol: Yes The following are medically ne: Central Line, Torres Catheter Subjective Patient reports: No new complaints Review of Systems: Deferred Objective vital signs Vital Sign Date Time Temp Pulse Resp B/P (MAP) Pulse Ox O2 Delivery O2 Flow Rate FiO2 01/20/25 18:15 87 22 112/44 (66) 97 01/20/25 16:00 98.2 98.2 01/20/25 08:00 Nasal Cannula* 2 28 Total Intake and Output 01/19/25 01/19/25 01/20/25 15:00 23:00 07:00 Intake Total 340 ml 200 ml Output Total 500 ml 200 ml Balance -160 ml 0 ml medications Current Medications Medications Dose Ordered Sig/Bárbara Route Start Time Stop Time Status Last Admin Dose Admin Ondansetron HCl 4 mg Q4HP PRN IV 01/07/25 17:15 01/07/25 19:24 4 MG Docusate Sodium 100 mg BIDPRN PRN PO 01/07/25 17:15 Nitroglycerin 0.4 mg Q5MINP PRN SL 01/07/25 17:15 Pantoprazole Sodium 40 mg BID IV 01/08/25 22:00 01/20/25 13:23 40 MG Bumetanide 2 mg Q6HR IV 01/10/25 10:30 01/20/25 17:50 2 MG Metolazone 15 mg DAILY PO 01/11/25 11:00 01/18/25 10:31 15 MG Norepinephrine Bitartrate 250 ml @ 3.75 mls/hr Q24H IV 01/11/25 18:15 01/20/25 12:00 3.75 MLS/HR Trazodone HCl 50 mg HS PO 01/12/25 22:00 01/19/25 22:11 50 MG Folic Acid 1 mg DAILY PO 01/12/25 10:00 01/20/25 13:24 1 MG Ciprofloxacin 200 ml @ 200 mls/hr DAILY IV 01/13/25 10:00 01/18/25 10:30 200 MLS/HR Midodrine 15 mg TID@0600,1200,1800 PO 01/13/25 18:00 01/20/25 17:50 15 MG Epoetin Gilbert-epbx 10,000 unit TUTHSA@2100 SC 01/16/25 21:00 01/19/25 21:00 10,000 UNIT Prednisone 30 mg DAILY PO 01/17/25 10:00 01/19/25 10:57 30 MG Ursodiol 300 mg BID PO 01/16/25 22:00 01/20/25 13:23 300 MG Thiamine HCl 100 mg DAILY PO 01/19/25 10:00 01/20/25 10:00 100 MG Lactulose 30 ml DAILY PO 01/18/25 17:15 01/20/25 13:24 30 ML Enteral Nutritional Formula 240 ml BID PO 01/19/25 10:00 01/20/25 10:00 240 ML Nystatin 1 applic BID TOP 01/19/25 10:30 01/20/25 10:00 1 APPLIC Albumin Human 100 ml @ 100 mls/hr PRN PRN IV 01/20/25 10:30 01/20/25 11:40 100 MLS/HR Examination: GENERAL:Abnormal, LUNGS:Abnormal, MSK:Abnormal, NEURO:Normal laboratory and microbiology Laboratory Tests 01/20/25 04:37 Test 01/20/25 04:37 Range/Units Serum Glucose 132 H 74-106 mg/dL Microbiology Date/Time Source Procedure Growth Status 01/11/25 09:37 Blood Blood Culture - Final NO GROWTH AFTER 5 DAYS OF INCUBATION. Complete 01/11/25 00:20 Nose MRSA Screen - Final Complete 01/08/25 15:00 Ascities Fluid Gram Stain - Final Complete 01/08/25 15:00 Ascities Fluid Body Fluid Culture - Final Complete Problem List/Assessment/Plan Problem List/Assessment/Plan Acute kidney injury hepatorenal syndrome vs atn ckd II baseline etoh cirrhosis, liver masses severe anasarca and ascites anemia due to liver disease hyponatremia due to volume overload recs hd today uf as tolerated Plan discussed with: Patient, Other My Orders My Orders Orders - EDEL HUANG MD Procedure Category Date Status Time Albumin 25% (Albutein) PHA 01/20/25 In Process 10:30 Epoetin Gilbert-Epbx PHA 01/20/25 In Process (Retacrit) 21:00 Dietary Evaluation Review Comments: 1) Continue thiamin supplementation. Consider adding folic acid and multivitamin. 2) Encourage optimal PO intake 3) Advance to 2g Na 80g hepatic diet when medically feasible 4) Refer to outpatient RD for weight management 5) Follow-up with hepatology, gastroenterology, and nephrology 6) Follow-up with social studies teacher r/t ETOH dependency 7) Continue to monitor I&O, labs, and skin integrity Expected Outcomes/Goals: 1) appetite and labs to improve 2) GI symptoms to resolve 3) diet to advance 4) f/u in 3-5 days CC Plasma Assessment Blood Product Administration S: [id number] EDEL HUANG MD Jan 20, 2025 18:32
[2025-01-20] MEDS: EPOETIN ALFA-EPBX 10,000 UNIT/1ML VIAL SC ONE (22:01)
[2025-01-21] VITALS (96 sets, daily range): BP systolic 82–132; BP diastolic 31–88; PULSE 73–99; RESP 12–29; TEMP 97.9–99.4; O2SAT 91–100
[2025-01-21] MEDS: HYDROcodone-ACET 5/325MG TAB PO PRN (01:59)
[2025-01-21 05:32] LABS: Hemoglobin 7.3 g/dL (12.2-16.2); Nucleated Red Blood Cells % 0.1 %
[2025-01-21 05:34] LABS: Hematocrit 22.1 % (36.0-46.0); Mean Corpuscular Hemoglobin 28.9 pg (28.0-32.0); Mean Corpuscular Volume 87.0 fL (80.0-100.0)
[2025-01-21 05:44] LABS: Albumin 3.8 g/dL (3.2-4.8); Alkaline Phosphatase 62 U/L (46-116); Anion Gap 16 (5-15); BUN/Creatinine Ratio 12.3 (10.0-20.0); Carbon Dioxide 25 mmol/L (20-31); Potassium 3.8 mmol/L (3.5-5.1); Sodium 139 mmol/L (136-145); Total Protein 6.9 g/dL (5.7-8.2)
[2025-01-21 05:46] LABS: Alanine Aminotransferase 41 U/L (7-40); Bilirubin, Total 7.7 mg/dL (0.2-1.0); Chloride 98 mmol/L (98-107); Glucose 107 mg/dL (74-106)
[2025-01-21 05:47] LABS: Blood Urea Nitrogen 80 mg/dL (9-23)
[2025-01-21 06:08] LABS: Calcium 8.8 mg/dL (8.7-10.4)
[2025-01-21 07:05] LABS: Anisocytosis Slight
--- NOTE | 2025-01-21 12:59 | DVHPN2 ---
Progress Note Date Seen: Jan 21, 2025 Has the PT tested + for MRSA If YES, has PT been informed?: No Medical Necessity Reason Pt with a Central, PICC or Fol: Yes The following are medically ne: Central Line, Torres Catheter Objective vital signs Vital Sign Date Time Temp Pulse Resp B/P (MAP) Pulse Ox O2 Delivery O2 Flow Rate FiO2 01/21/25 12:35 91/47 01/21/25 11:15 80 17 95 01/21/25 08:00 99.4 99.4 01/21/25 08:00 Room Air* 0 21 Total Intake and Output 01/20/25 01/20/25 01/21/25 15:00 23:00 07:00 Intake Total 111.25 ml 277.50 ml 270.00 ml Output Total 175 ml 50 ml Balance 111.25 ml 102.50 ml 220.00 ml medications Current Medications Medications Dose Ordered Sig/Bárbara Route Start Time Stop Time Status Last Admin Dose Admin Ondansetron HCl 4 mg Q4HP PRN IV 01/07/25 17:15 01/07/25 19:24 4 MG Docusate Sodium 100 mg BIDPRN PRN PO 01/07/25 17:15 Nitroglycerin 0.4 mg Q5MINP PRN SL 01/07/25 17:15 Pantoprazole Sodium 40 mg BID IV 01/08/25 22:00 01/21/25 09:41 40 MG Bumetanide 2 mg Q6HR IV 01/10/25 10:30 01/21/25 12:35 2 MG Metolazone 15 mg DAILY PO 01/11/25 11:00 01/21/25 10:00 15 MG Norepinephrine Bitartrate 250 ml @ 3.75 mls/hr Q24H IV 01/11/25 18:15 01/20/25 12:00 3.75 MLS/HR Trazodone HCl 50 mg HS PO 01/12/25 22:00 01/20/25 22:01 50 MG Folic Acid 1 mg DAILY PO 01/12/25 10:00 01/21/25 09:41 1 MG Ciprofloxacin 200 ml @ 200 mls/hr DAILY IV 01/13/25 10:00 01/21/25 09:41 200 MLS/HR Midodrine 15 mg TID@0600,1200,1800 PO 01/13/25 18:00 01/21/25 12:36 15 MG Epoetin Gilbert-epbx 10,000 unit TUTHSA@2100 SC 01/16/25 21:00 01/19/25 21:00 10,000 UNIT Prednisone 30 mg DAILY PO 01/17/25 10:00 01/21/25 09:41 30 MG Ursodiol 300 mg BID PO 01/16/25 22:00 01/21/25 09:41 300 MG Thiamine HCl 100 mg DAILY PO 01/19/25 10:00 01/21/25 09:42 100 MG Lactulose 30 ml DAILY PO 01/18/25 17:15 01/21/25 09:41 30 ML Enteral Nutritional Formula 240 ml BID PO 01/19/25 10:00 01/21/25 09:42 240 ML Nystatin 1 applic BID TOP 01/19/25 10:30 01/21/25 09:43 1 APPLIC Albumin Human 100 ml @ 100 mls/hr PRN PRN IV 01/20/25 10:30 01/20/25 11:40 100 MLS/HR Acetaminophen/ Hydrocodone Bitart 1 tab Q6HPRN PRN PO 01/21/25 00:45 01/21/25 12:55 1 TAB Examination: GENERAL:Abnormal, HEENT:Abnormal, MSK:Abnormal laboratory and microbiology Laboratory Tests 01/21/25 04:50 Test 01/21/25 04:50 Range/Units Serum Glucose 107 H 74-106 mg/dL Microbiology Date/Time Source Procedure Growth Status 01/11/25 09:37 Blood Blood Culture - Final NO GROWTH AFTER 5 DAYS OF INCUBATION. Complete 01/11/25 00:20 Nose MRSA Screen - Final Complete 01/08/25 15:00 Ascities Fluid Gram Stain - Final Complete 01/08/25 15:00 Ascities Fluid Body Fluid Culture - Final Complete Problem List/Assessment/Plan Problem List/Assessment/Plan Acute kidney injury hepatorenal syndrome vs atn ckd II baseline etoh cirrhosis, liver masses severe anasarca and ascites anemia due to liver disease hyponatremia due to volume overload recs hd tomorrow uf as tolerated no MRI contrast Plan discussed with: Patient, Spouse Dietary Evaluation Review Comments: 1) Continue thiamin supplementation. Consider adding folic acid and multivitamin. 2) Encourage optimal PO intake 3) Advance to 2g Na 80g hepatic diet when medically feasible 4) Refer to outpatient RD for weight management 5) Follow-up with hepatology, gastroenterology, and nephrology 6) Follow-up with manager social media r/t ETOH dependency 7) Continue to monitor I&O, labs, and skin integrity Expected Outcomes/Goals: 1) appetite and labs to improve 2) GI symptoms to resolve 3) diet to advance 4) f/u in 3-5 days CC Plasma Assessment Blood Product Administration S: [id number] EDEL HUANG MD Jan 21, 2025 12:59
--- NOTE | 2025-01-21 13:00 | DVH ---
INDICATION: Evaluate for pelvic/ovarian masses TECHNIQUE: Multiple real-time grayscale transabdominal and TV sonographic images along with color an d duplex Doppler of the uterus and ovaries were obtained. COMPARISON: MRI MRI ABD PELVIS W/O CONT on DOS: 01/10/25, CT CT AB PEL WO CON-NO ORAL OR IV on DOS: 01/08, US PELVIC on DOS: 08/25/24, CT CT AB PEL WO CON-NO ORAL OR IV on DOS: 06/14/24 FINDINGS: The uterus measures 8 x 5 x 6 cm. The endometrial stripe measures 1.3 cm. Ovaries are not visualized. 5 cm right adnexal heterogeneous mass with vascularity. MRI with IV cont rast recommended IMPRESSION: 1. 5 cm right adnexal heterogeneous mass with vascularity. MRI with IV contrast recommended
--- NOTE | 2025-01-21 14:18 | DVHPN2 ---
Progress Note Date Seen: Jan 21, 2025 Resident Creating Document: MILE LORA RESIDENT Has the PT tested + for MRSA If YES, has PT been informed?: No Medical Necessity Reason Pt with a Central, PICC or Fol: Yes The following are medically ne: Central Line, Torres Catheter Subjective Review of Systems This is a patient with advanced cirrhosis (MELD score 32) complicated by hepatorenal syndrome, recurrent ascites, and hyperbilirubinemia. She remains on norepinephrine infusion, now increased to 8 mcg/min for blood pressure support. Plaza updates today: * Liver biopsy: Negative for malignancy or metastasis. * Ascitic fluid cytology: Negative for malignant cells. * Labs: * Hemoglobin downtrending to 7.3 g/dL (from 8.0 g/dL). * WBC 22.5 10/L attributed to steroid therapy. * PT 15.6 sec, INR 1.54 elevated (coagulopathy of liver disease). * AST and ALT trending upward. * Total bilirubin: 7.7 mg/dL. * Creatinine: 6.52 mg/dL (ESRD on HD). * BUN: 18 mg/dL. * Ammonia: 52 mol/L elevated. * Planned workup: * Pelvic ultrasound evaluate for possible gynecologic source of elevated CA-125. * CT abdomen/pelvis with and without IV contrast (liver mass protocol) assess for nodular lesions and correlate with biopsy. * Possible targeted biopsy of suspicious hepatic or pelvic lesions following imaging. * Tolerating soft diet * On IV ciprofloxacin for SBP prophylaxis. * Bowel movements regular; on lactulose. Objective vital signs Vital Sign Date Time Temp Pulse Resp B/P (MAP) Pulse Ox O2 Delivery O2 Flow Rate FiO2 01/21/25 12:35 91/47 01/21/25 11:15 80 17 95 01/21/25 08:00 99.4 99.4 01/21/25 08:00 Room Air* 0 21 Total Intake and Output 01/20/25 01/20/25 01/21/25 15:00 23:00 07:00 Intake Total 111.25 ml 277.50 ml 270.00 ml Output Total 175 ml 50 ml Balance 111.25 ml 102.50 ml 220.00 ml medications Current Medications Medications Dose Ordered Sig/Bárbara Route Start Time Stop Time Status Last Admin Dose Admin Ondansetron HCl 4 mg Q4HP PRN IV 01/07/25 17:15 01/07/25 19:24 4 MG Docusate Sodium 100 mg BIDPRN PRN PO 01/07/25 17:15 Nitroglycerin 0.4 mg Q5MINP PRN SL 01/07/25 17:15 Pantoprazole Sodium 40 mg BID IV 01/08/25 22:00 01/21/25 09:41 40 MG Metolazone 15 mg DAILY PO 01/11/25 11:00 01/21/25 10:00 15 MG Norepinephrine Bitartrate 250 ml @ 3.75 mls/hr Q24H IV 01/11/25 18:15 01/20/25 12:00 3.75 MLS/HR Trazodone HCl 50 mg HS PO 01/12/25 22:00 01/20/25 22:01 50 MG Folic Acid 1 mg DAILY PO 01/12/25 10:00 01/21/25 09:41 1 MG Ciprofloxacin 200 ml @ 200 mls/hr DAILY IV 01/13/25 10:00 01/21/25 09:41 200 MLS/HR Midodrine 15 mg TID@0600,1200,1800 PO 01/13/25 18:00 01/21/25 12:36 15 MG Epoetin Gilbert-epbx 10,000 unit TUTHSA@2100 SC 01/16/25 21:00 01/19/25 21:00 10,000 UNIT Prednisone 30 mg DAILY PO 01/17/25 10:00 01/21/25 09:41 30 MG Ursodiol 300 mg BID PO 01/16/25 22:00 01/21/25 09:41 300 MG Thiamine HCl 100 mg DAILY PO 01/19/25 10:00 01/21/25 09:42 100 MG Lactulose 30 ml DAILY PO 01/18/25 17:15 01/21/25 09:41 30 ML Enteral Nutritional Formula 240 ml BID PO 01/19/25 10:00 01/21/25 09:42 240 ML Nystatin 1 applic BID TOP 01/19/25 10:30 01/21/25 09:43 1 APPLIC Albumin Human 100 ml @ 100 mls/hr PRN PRN IV 01/20/25 10:30 01/20/25 11:40 100 MLS/HR Acetaminophen/ Hydrocodone Bitart 1 tab Q6HPRN PRN PO 01/21/25 00:45 01/21/25 12:55 1 TAB Bumetanide 2 mg BIDD IV 01/21/25 18:00 Examination * General: Chronically ill-appearing, jaundiced, on vasopressor support. * Abdomen: Mild distention with ascites; soft, non-tender; no guarding or rebound. * Skin: Jaundice present; no spider angiomas noted. * Neuro: Alert, oriented 3; no asterixis. laboratory and microbiology Laboratory Tests 01/21/25 04:50 Test 01/21/25 04:50 Range/Units Serum Glucose 107 H 74-106 mg/dL Microbiology Date/Time Source Procedure Growth Status 01/11/25 09:37 Blood Blood Culture - Final NO GROWTH AFTER 5 DAYS OF INCUBATION. Complete 01/11/25 00:20 Nose MRSA Screen - Final Complete 01/08/25 15:00 Ascities Fluid Gram Stain - Final Complete 01/08/25 15:00 Ascities Fluid Body Fluid Culture - Final Complete Labs and/or images reviewed: Labs reviewed by me, Image(s) reviewed by me Problem List/Assessment/Plan Problem List/Assessment/Plan Assessment 1. Decompensated alcoholic cirrhosis with severe ascites, coagulopathy, and hyperbilirubinemia (MELD ~35)., Maddrey DF score is 40.4 which is poor prognosis/ONGOING IV CORTICOSTEROIDS 2. Multiple hepatic lesions, high suspicion for metastatic malignancy (CEA elevated, AFP normal), Elevated CA 125 of 527 suggests peritoneal or gynecological source, increased CEA suggest colorectal source./awaiting OBGYN input/POSSIBLE DYSPLASTIC NODULES PARTIAL ENDOTHELIALIZATION NOTED, WARRANTS CORRELATION WITH IMAGING CT OR MRI LIVER PROTOCOL AND CONSIDERATION FOR TARGETED RE-BIOPSY. 3. Hepatorenal syndrome ongoing HD. 4. Severe ascites and anasarca improving with HD and paracentesis. 5. Acute on chronic GI bleed (melena) positive stool occult blood, anemia requiring transfusion. 6. Severe anemia secondary to chronic liver disease and GI bleeding./anemia of chronic disease/hemoglobin stable at 8.0 7. 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 8. Severe malnutrition on clear liquids, receiving high-protein oral supplementation. 9. Coagulopathy of liver disease/elevated INR PT and APTT/given vitamin K IV once/monitor for bleeding Plan Gastrointestinal / Hepatic * Proceed with CT abdomen/pelvis with and without IV contrast (liver mass protocol). * Schedule pelvic ultrasound for adnexal/pelvic mass evaluation. * Oncology referral after imaging results. * Consider targeted biopsy if imaging identifies lesions not previously sampled. Continue prednisolone 40 mg p.o. daily daily for alcohol hepatitis. Discontinue hydrocortisone Add ursodiol 300 mg p.o. twice a day Tapering dose of steroids Hypotension likely due to underlying chronic liver disease Monitor labs Await liver biopsy results hopefully we should have report by next week * Continue monitoring post-liver biopsy for bleeding. * Discontinue octerotide * Maintain Pantoprazole IV BID for GI bleed prophylaxis. * Avoid hepatotoxic medications and opioids (alphonso. morphine). * Use non-opioid analgesics for RUQ pain. Continue lactulose 30 mL * Plan for EGD and colonoscopy once hemodynamically stable to evaluate varices and rule out colorectal malignancy. * Continue SBP prophylaxis with IV ciprofloxacin daily. * Monitor LFTs, INR, CBC daily. OBGYN consult for fell pelvic mass, CA 125 correlation Ascites Reinforce RLQ site dressing, monitor for infection signs. * Continue fluid and sodium restriction. * Continue triple diuretics (Tolvaptan, Bumetanide, Metolazone) per nephrology. * Monitor paracentesis site for infection; apply dressing. * Repeat paracentesis PRN for recurrent tense ascites. Nutrition * Continue soft diet; advance as tolerated. * Monitor intake and weight daily. * Consider nutrition consult and TPN if oral intake insufficient. Oncology * Early oncology consult once biopsy results available. * Evaluate for possible metastatic colorectal cancer vs HCC. Hematology * PRBC transfusion PRN to maintain Hgb >8.0. * Continue Epoetin Gilbert-epbx SC protocol. * Monitor platelets, INR daily. Infectious Disease * Continue IV antibiotics (ciprofloxacin) for SBP prophylaxis. * Monitor cultures. Case discussed in detail with the attending physician, including the clinical presentation, diagnostic workup, and comprehensive management plan. The patient was present for the discussion and demonstrated understanding of her condition and the proposed plan. Plan discussed with: Patient My Orders My Orders Orders - MILE LORA RESIDENT Procedure Category Date Status Time Ct Ab Pelvis W Wo CT 01/21/25 Logged Con-Iv Only 11:42 Pelvic US 01/21/25 Resulted 11:56 Dietary Evaluation Review Comments: 1) Continue thiamin supplementation. Consider adding folic acid and multivitamin. 2) Encourage optimal PO intake 3) Advance to 2g Na 80g hepatic diet when medically feasible 4) Refer to outpatient RD for weight management 5) Follow-up with hepatology, gastroenterology, and nephrology 6) Follow-up with social worker assistant r/t ETOH dependency 7) Continue to monitor I&O, labs, and skin integrity Expected Outcomes/Goals: 1) appetite and labs to improve 2) GI symptoms to resolve 3) diet to advance 4) f/u in 3-5 days CC Plasma Assessment Blood Product Administration S: [id number] MILE LORA RESIDENT Jan 21, 2025 14:18
[2025-01-21] MEDS: IOHEXOL 300 MG/ML 100ML BOTTLE IJ ONE (15:32)
[2025-01-21] MEDS: LORazepam 2MG/ML-1ML VIAL ONE (15:44)
[2025-01-21] MEDS: LORazepam 2MG/ML-1ML VIAL IV ONE (15:44)
--- NOTE | 2025-01-21 17:10 | DVH ---
Exam: CT CT AB PELVIS W WO CON-IV ONLY History: Evaluate for liver mass, Liver mass protocol COMPARISON: US PELVIC on DOS: 01/21/25, US ABDOMEN LIMITED on DOS: 01/20/25, MRI MRI ABD PELVIS W/O CON T on DOS: 01/10/25 Technique: 85 mL of Omnipaque [address] of the abdomen and pelvis was performed fro m lung bases to pubic symphysis. Intravenous contrast was administered during this examination. Naina l venous imaging was obtained. Axial, coronal and sagittal multiplanar reformats were performed by sue la technologist on a separate workstation. Radiation Dose : 1. Abdomen/Pelvis: CTDIvol 30.06mGy, DLP 4.61 mGy*cm. CONTRAST: Type of contrast: Omnipaque 300 Contrast injected: 85 ml Findings: Lung Bases: Consolidation of the left lung base with left pleural effusion Liver: The liver is normal in size. No focal lesions. Normal hepatic vascular enhancement. Trace asc ites along the inferior hepatic tip Spleen: Unremarkable Pancreas: The pancreas is normal in appearance without focal lesions or abnormal enhancement. Adrenal Glands: Unremarkable Kidneys: No hydronephrosis. Bladder: Unremarkable Bowel: The stomach is grossly normal in appearance. Small bowel and colon are normal in caliber and d istribution. The appendix is not visualized; however, no secondary findings of acute appendicitis dillan ntified. Ascites: There is free fluid present mainly in the pelvis. Lymphadenopathy: No mesenteric, retroperitoneal or periportal lymphadenopathy. Abdominal Wall and Mesentery: Unremarkable. Vasculature: The visualized abdominal aorta is normal in size and caliber. Abdominal and pelvic vess els demonstrate normal enhancement. Pelvic Organs: Small calcified uterine fibroids. Musculoskeletal: No aggressive focal bony lesions, acute fractures or dislocation. IMPRESSION: 1. No liver masses are seen. 2. There is some ascites present 3. Small gallstones without biliary dilatation 4. Effusion and consolidation in the left lung base Radiation optimization: All CT scans at this facility use at least one of these dose optimization geno hniques: automated exposure control mA and/or kV adjustment per patient size (includes targeted exam s where dose is matched to clinical indication) or iterative reconstruction.
--- NOTE | 2025-01-21 17:50 | DVHPNRES ---
Progress Note Date Seen: Jan 21, 2025 Resident Creating Document: BRENDA HITCHCOCK RESIDENT Has the PT tested + for MRSA If YES, has PT been informed?: No Medical Necessity Reason Pt with a Central, PICC or Fol: Yes The following are medically ne: Central Line, Torres Catheter Subjective Review of Systems Patient is a 38-year-old female with past medical history of chronic severe anemia which required blood transfusions via before in June on August, uterine fibroids, chronic liver ascites who came to the ED with chief complaint of severe diffuse abdominal pain 8 in intensity, which radiates to the back, gradual increase in shortness of breath, and nausea since the past week. She complained of severe bloating and abdominal swelling since last Saturday, dry mouth, dry cough, dizziness, and bilateral leg pain due to edema. but he denies any hematemesis, headaches, diarrhea, dysuria, hematuria, but she complains her stool is darker than usual. Patient was supposed to follow-up with OBGYN for possible hysterectomy but did not. She states that she had no prior diagnosis of cirrhosis but was told during her June 2024 admission that she had liver and kidney damage. 01/11 - Patient seen and examined at the bedside. Reports feeling weak, IR placed tunneled catheter for dialysis. Dopamine started, patient did not tolerate, HR into 160s, decreased with vagal maneuvers. Discontinue dopamine. Continue diuresis. Radiologist consulted for liver biopsy. 01/12 - patient seen and examined, underwent HD last night 2.4 L taken out, underwent hemodialysis today, 2 L taken off. Patient is requiring Levophed during hemodialysis. Pending liver biopsy. 01/13 - patient underwent hemodialysis this morning. Midodrine increased to 15 mg TID. Right tunneled catheter intermittently bleeding, Dermabond in place. 01/14-patient seen and examined, right tunneled catheter clotted blood seen. Diet increased to soft diet. Echocardiogram ordered, Levophed 01/15 - patient underwent hemodialysis, 2.6 L taken out, started prednisone 40mg daily. 01/16 - patient seen and examined, weaned off IV pressors, GI decreased prednisone to 30 mg daily, ursodiol daily, MAP goal > 60. 01/18 - patient off pressors, underwent hemodialysis 01/17 01/19 -dc hydrocortisone. Liver biopsy shows steatohepatitis and cirrhosis, dysplasia can not be ruled out 01/20 - hemodialysis, patient requiring levophed 6, Had bowel movement, GI recommends MRI chest/abdomen/pelvis with contrast as outpatient. 01/21 - patient seen and examined, CT abdomen/pelvis with without IV count showed No liver masses are seen, There is some ascites present, Small gallstones without biliary dilatation, Effusion and consolidation in the left lung base Pelvic ultrasound showed 5 cm right adnexal heterogeneous mass with vascularity. MRI with IV contrast recommended. Levophed 2 mcg/minute Objective vital signs Vital Sign Date Time Temp Pulse Resp B/P (MAP) Pulse Ox O2 Delivery O2 Flow Rate FiO2 01/21/25 16:00 86 01/21/25 15:15 22 100/46 (64) 96 01/21/25 08:00 99.4 99.4 01/21/25 08:00 Room Air* 0 21 Total Intake and Output 01/20/25 01/20/25 01/21/25 15:00 23:00 07:00 Intake Total 111.25 ml 277.50 ml 270.00 ml Output Total 175 ml 50 ml Balance 111.25 ml 102.50 ml 220.00 ml medications Current Medications Medications Dose Ordered Sig/Bárbara Route Start Time Stop Time Status Last Admin Dose Admin Ondansetron HCl 4 mg Q4HP PRN IV 01/07/25 17:15 01/07/25 19:24 4 MG Docusate Sodium 100 mg BIDPRN PRN PO 01/07/25 17:15 Nitroglycerin 0.4 mg Q5MINP PRN SL 01/07/25 17:15 Pantoprazole Sodium 40 mg BID IV 01/08/25 22:00 01/21/25 09:41 40 MG Metolazone 15 mg DAILY PO 01/11/25 11:00 01/21/25 10:00 15 MG Norepinephrine Bitartrate 250 ml @ 3.75 mls/hr Q24H IV 01/11/25 18:15 01/20/25 12:00 3.75 MLS/HR Trazodone HCl 50 mg HS PO 01/12/25 22:00 01/20/25 22:01 50 MG Folic Acid 1 mg DAILY PO 01/12/25 10:00 01/21/25 09:41 1 MG Ciprofloxacin 200 ml @ 200 mls/hr DAILY IV 01/13/25 10:00 01/21/25 09:41 200 MLS/HR Midodrine 15 mg TID@0600,1200,1800 PO 01/13/25 18:00 01/21/25 12:36 15 MG Epoetin Gilbert-epbx 10,000 unit TUTHSA@2100 SC 01/16/25 21:00 01/19/25 21:00 10,000 UNIT Prednisone 30 mg DAILY PO 01/17/25 10:00 01/21/25 09:41 30 MG Ursodiol 300 mg BID PO 01/16/25 22:00 01/21/25 09:41 300 MG Thiamine HCl 100 mg DAILY PO 01/19/25 10:00 01/21/25 09:42 100 MG Lactulose 30 ml DAILY PO 01/18/25 17:15 01/21/25 09:41 30 ML Enteral Nutritional Formula 240 ml BID PO 01/19/25 10:00 01/21/25 09:42 240 ML Nystatin 1 applic BID TOP 01/19/25 10:30 01/21/25 09:43 1 APPLIC Albumin Human 100 ml @ 100 mls/hr PRN PRN IV 01/20/25 10:30 01/20/25 11:40 100 MLS/HR Acetaminophen/ Hydrocodone Bitart 1 tab Q6HPRN PRN PO 01/21/25 00:45 01/21/25 12:55 1 TAB Bumetanide 2 mg BIDD IV 01/21/25 18:00 laboratory and microbiology Laboratory Tests 01/21/25 04:50 Test 01/21/25 04:50 Range/Units Serum Glucose 107 H 74-106 mg/dL Microbiology Date/Time Source Procedure Growth Status 01/11/25 09:37 Blood Blood Culture - Final NO GROWTH AFTER 5 DAYS OF INCUBATION. Complete 01/11/25 00:20 Nose MRSA Screen - Final Complete 01/08/25 15:00 Ascities Fluid Gram Stain - Final Complete 01/08/25 15:00 Ascities Fluid Body Fluid Culture - Final Complete Labs and/or images reviewed: Labs reviewed by me, Image(s) reviewed by me Problem List/Assessment/Plan Problem List/Assessment/Plan Generalized weakness secondary to acute blood loss anemia ? Upper GI bleed, esophageal varices Hypotension requiring pressor Possible metastatic liver disease - primary unknown s/p liver biopsy 01/12 Acute on chronic decompensated liver failure - meld score 35 - MDF - 40.9, [place] model 0.010 Chronic alcohol dependence Alcoholic withdrawal - CIWA less than 8 Discontinued IV octreotide drip IV pantoprazole b.i.d. GI consultation - DC IV Solu-Medrol 40 mg daily, DC octreotide, continue prednisone IR consulted - liver biopsy 01/12, Liver biopsy shows steatohepatitis and cirrhosis, dysplasia can not be ruled out 01/21-CT abdomen/pelvis with without IV count showed No liver masses are seen, There is some ascites present, Small gallstones without biliary dilatation, Effusion and consolidation in the left lung base IV Levaquin switch to IV Cipro Midodrine 15 mg TID Completed hydrocortisone 50 mg q.6 hours 01/14 to 01/18 prednisone 30 mg daily, ursodiol daily Off pressors Beta Whit cant be given given possible variceal bleed Acute Kidney Injury likely hepatorenal syndrome vs. pre-renal azotemia -FENA 0.3% requiring hemodialysis hypervolemic hypotonic hyponatremia possibly secondary to cirrhosis Anion gap metabolic acidosis secondary to lactic acid Oliguria nephrology consulted - IV Bumex 2 mg q.6 hourly, metolazone, HD 01/11, 01/12, 01/13, 01/15, 01/17, 01/20 Radiology placed tunneled catheter today 01/11 Patient did not tolerate dopamine, heart rate into 160s Discontinued Tolvaptan 30 mg daily Pelvic mass ? Mass versus fibroid Abnormal uterine bleeding OBGYN consultation -OC for obstetrician and gynaecologist onc MRI showed 4.9 cm T2 hypointense structure in the posterior right hemipelvis. This may represent an exophytic fibroid versus possible endometrioma. CA 125 elevated # Gallstones , cholelithiasis- outpatient follow-up # History of miscarriage SCDs Renal diet R tunn cath 01/11 Drips: Levophed 02mcg Avoid morphine Plan discussed with patient, at bedside in which all questions have been answered Goals of care discussed with the patient for more than 20 minutes, full code status Case discussed with Dr. Samuels Plan discussed with: Patient, Spouse My Orders My Orders Orders - BRENDA HITCHCOCK Procedure Category Date Status Time Blood Culture SHIRLEY 01/21/25 In Process 08:03 * Esters And Emulsifiers Supervisor CONS 01/21/25 Transmitted Consult Transvaginal Us Non Ob US 01/21/25 Resulted Dietary Evaluation Review Comments: 1) Continue thiamin supplementation. Consider adding folic acid and multivitamin. 2) Encourage optimal PO intake 3) Advance to 2g Na 80g hepatic diet when medically feasible 4) Refer to outpatient RD for weight management 5) Follow-up with hepatology, gastroenterology, and nephrology 6) Follow-up with social work lecturer r/t ETOH dependency 7) Continue to monitor I&O, labs, and skin integrity Expected Outcomes/Goals: 1) appetite and labs to improve 2) GI symptoms to resolve 3) diet to advance 4) f/u in 3-5 days CC Plasma Assessment Blood Product Administration S: [id number] Date of Service: Jan 21, 2025 Billing Provider: JOE SAMUELS MD Common Visit Codes: [id number] INP/OBS CARE(HIGH) BRENDA HITCHCOCK RESIDENT Jan 21, 2025 17:50 JOE SAMUELS MD Jan 21, 2025 21:36
--- NOTE | 2025-01-21 18:05 | MEDREC ---
[facility] Intervention Section I [facility] Intervention: Review courses of therapy (QTc on 01/11 reported to be 492. Pt receiving ciprofloxacin since 01/13. Please consider repeat EKG to monitor QTc.) SAUD HERNANDEZ [facility] RESIDENT Jan 21, 2025 18:05
[2025-01-21] MEDS: BUMETANIDE 2.5mg/10ml (0.25 mg/ml) INJ IV SCH (18:22)
[2025-01-21] MEDS: NOREPINEPHRINE 8 MG/250ML KIT 250 ML IV SCH (19:30)
[2025-01-21] MEDS: LACTULOSE 20Gm/30ML SOLN PO SCH (21:22)
[2025-01-22] VITALS (96 sets, daily range): BP systolic 84–118; BP diastolic 28–70; PULSE 72–96; RESP 12–29; TEMP 97.9–98.7; O2SAT 92–99
[2025-01-22 05:54] LABS: Hemoglobin 7.3 g/dL (12.2-16.2)
[2025-01-22 05:59] LABS: Hematocrit 21.9 % (36.0-46.0); Mean Corpuscular Hemoglobin 28.6 pg (28.0-32.0); Mean Corpuscular Volume 86.2 fL (80.0-100.0); Nucleated Red Blood Cells % 0.1 %
[2025-01-22 06:04] LABS: Albumin 3.9 g/dL (3.2-4.8); Alkaline Phosphatase 69 U/L (46-116); Anion Gap 18 (5-15); Calcium 9.3 mg/dL (8.7-10.4); Carbon Dioxide 24 mmol/L (20-31); Potassium 4.2 mmol/L (3.5-5.1); Sodium 138 mmol/L (136-145)
[2025-01-22 06:05] LABS: BUN/Creatinine Ratio 13.8 (10.0-20.0)
[2025-01-22 06:06] LABS: Total Protein 7.1 g/dL (5.7-8.2)
[2025-01-22 06:09] LABS: Alanine Aminotransferase 42 U/L (7-40); Bilirubin, Total 8.2 mg/dL (0.2-1.0); Chloride 96 mmol/L (98-107); Glucose 120 mg/dL (74-106)
[2025-01-22 06:10] LABS: Blood Urea Nitrogen 97 mg/dL (9-23)
[2025-01-22 06:26] LABS: INR 1.55 (0.9-1.15); Partial Thromboplastin Time 33.4 SEC (24.5-34.5); Prothrombin Time 15.7 sec (9.3-11.8)
[2025-01-22 07:04] LABS: Anisocytosis Slight
[2025-01-22] MEDS: predniSONE 20 MG TAB PO SCH (10:31)
--- NOTE | 2025-01-22 13:04 | DVHPN2 ---
Chief Complaints Patient reports: No new complaints, Other Nursing reports: Other Objective Vitals Vital Signs Date Time Temp Pulse Resp B/P (MAP) Pulse Ox O2 Delivery O2 Flow Rate FiO2 01/22/25 10:22 99/49 01/22/25 09:15 79 16 95 01/22/25 08:00 Room Air* 0 21 01/22/25 08:00 98.1 98.1 Medications Current Medications Medications (Trade) Dose Ordered Sig/Bárbara Route PRN Reason Start Time Stop Time Status Last Admin Bumetanide (Bumex Injection) 2 mg BIDD IV 01/21/25 18:00 01/22/25 05:48 Lactulose 30 ml BID PO 01/21/25 22:00 01/22/25 10:21 Norepinephrine Bitartrate 250 ml @ 1.875 mls/ hr Q24H IV 01/21/25 19:30 01/21/25 19:30 Prednisone 20 mg DAILY PO 01/22/25 10:00 01/22/25 10:31 Studies Laboratory Tests 01/22/25 04:41 Test 01/22/25 04:41 Range/Units Serum Glucose 120 H 74-106 mg/dL Ass/Plan Assessment adenxal mass and elev ca125 liver cirrhosis kidney failure Plan consult previously dictated ,pt needs to see3 cancer genetics assistant onc ,recommend transfer to higher level of care . thank you Visit Coding OBGYN Date of Service: Jan 22, 2025 Billing Provider: ABE LAWLER DO [employer] SALES ASSOCIATE Common Visit Codes: [id number] INP/OBS CARE(HIGH) FITNESS SALES ASSOCIATE Consultation Codes: [id number] INPATIENT CONSULT (MOD) ABE LAWLER DO Jan 22, 2025 13:04
--- NOTE | 2025-01-22 15:28 | DVHPNRES ---
Progress Note Date Seen: Jan 22, 2025 Resident Creating Document: BRENDA HITCHCOCK RESIDENT Has the PT tested + for MRSA If YES, has PT been informed?: No Medical Necessity Reason Pt with a Central, PICC or Fol: Yes The following are medically ne: Central Line, Torres Catheter Subjective Review of Systems Patient is a 38-year-old female with past medical history of chronic severe anemia which required blood transfusions via before in June on August, uterine fibroids, chronic liver ascites who came to the ED with chief complaint of severe diffuse abdominal pain 8 in intensity, which radiates to the back, gradual increase in shortness of breath, and nausea since the past week. She complained of severe bloating and abdominal swelling since last Saturday, dry mouth, dry cough, dizziness, and bilateral leg pain due to edema. but he denies any hematemesis, headaches, diarrhea, dysuria, hematuria, but she complains her stool is darker than usual. Patient was supposed to follow-up with OBGYN for possible hysterectomy but did not. She states that she had no prior diagnosis of cirrhosis but was told during her June 2024 admission that she had liver and kidney damage. 01/11 - Patient seen and examined at the bedside. Reports feeling weak, IR placed tunneled catheter for dialysis. Dopamine started, patient did not tolerate, HR into 160s, decreased with vagal maneuvers. Discontinue dopamine. Continue diuresis. Radiologist consulted for liver biopsy. 01/12 - patient seen and examined, underwent HD last night 2.4 L taken out, underwent hemodialysis today, 2 L taken off. Patient is requiring Levophed during hemodialysis. Pending liver biopsy. 01/13 - patient underwent hemodialysis this morning. Midodrine increased to 15 mg TID. Right tunneled catheter intermittently bleeding, Dermabond in place. 01/14-patient seen and examined, right tunneled catheter clotted blood seen. Diet increased to soft diet. Echocardiogram ordered, Levophed 01/15 - patient underwent hemodialysis, 2.6 L taken out, started prednisone 40mg daily. 01/16 - patient seen and examined, weaned off IV pressors, GI decreased prednisone to 30 mg daily, ursodiol daily, MAP goal > 60. 01/18 - patient off pressors, underwent hemodialysis 01/17 01/19 -dc hydrocortisone. Liver biopsy shows steatohepatitis and cirrhosis, dysplasia can not be ruled out 01/20 - hemodialysis, patient requiring levophed 6, Had bowel movement, GI recommends MRI chest/abdomen/pelvis with contrast as outpatient. 01/21 - patient seen and examined, CT abdomen/pelvis with without IV count showed No liver masses are seen, There is some ascites present, Small gallstones without biliary dilatation, Effusion and consolidation in the left lung base Pelvic ultrasound showed 5 cm right adnexal heterogeneous mass with vascularity. MRI with IV contrast recommended. Levophed 2 mcg/minute 01/22 - On levophed 1, patient sitting in a chair, OBGYN recommends HLOC - for pelvic mass biopsy (5 cm right adnexal heterogeneous mass with vascularity, CA125: 527) and inpatient eval for possible metastaic cancer by motor expert oncology per [employer]OR. HD today Objective vital signs Vital Sign Date Time Temp Pulse Resp B/P (MAP) Pulse Ox O2 Delivery O2 Flow Rate FiO2 01/22/25 14:00 78 01/22/25 13:15 17 112/54 (73) 95 01/22/25 08:00 Room Air* 0 21 01/22/25 08:00 98.1 98.1 Total Intake and Output 01/21/25 01/21/25 01/22/25 15:00 23:00 07:00 Intake Total 222.50 ml 380.250 ml 510.00 ml Output Total 225 ml 550 ml Balance 222.50 ml 155.250 ml -40.00 ml medications Current Medications Medications Dose Ordered Sig/Bárbara Route Start Time Stop Time Status Last Admin Dose Admin Ondansetron HCl 4 mg Q4HP PRN IV 01/07/25 17:15 01/07/25 19:24 4 MG Docusate Sodium 100 mg BIDPRN PRN PO 01/07/25 17:15 Nitroglycerin 0.4 mg Q5MINP PRN SL 01/07/25 17:15 Pantoprazole Sodium 40 mg BID IV 01/08/25 22:00 01/22/25 10:32 40 MG Metolazone 15 mg DAILY PO 01/11/25 11:00 01/22/25 10:22 15 MG Trazodone HCl 50 mg HS PO 01/12/25 22:00 01/21/25 21:22 50 MG Folic Acid 1 mg DAILY PO 01/12/25 10:00 01/22/25 10:31 1 MG Ciprofloxacin 200 ml @ 200 mls/hr DAILY IV 01/13/25 10:00 01/22/25 10:32 200 MLS/HR Midodrine 15 mg TID@0600,1200,1800 PO 01/13/25 18:00 01/22/25 12:59 15 MG Epoetin Gilbert-epbx 10,000 unit TUTHSA@2100 SC 01/16/25 21:00 01/21/25 21:24 10,000 UNIT Ursodiol 300 mg BID PO 01/16/25 22:00 01/22/25 10:31 300 MG Thiamine HCl 100 mg DAILY PO 01/19/25 10:00 01/22/25 10:31 100 MG Enteral Nutritional Formula 240 ml BID PO 01/19/25 10:00 01/22/25 10:23 240 ML Nystatin 1 applic BID TOP 01/19/25 10:30 01/22/25 10:00 1 APPLIC Albumin Human 100 ml @ 100 mls/hr PRN PRN IV 01/20/25 10:30 01/20/25 11:40 100 MLS/HR Acetaminophen/ Hydrocodone Bitart 1 tab Q6HPRN PRN PO 01/21/25 00:45 01/21/25 12:55 1 TAB Bumetanide 2 mg BIDD IV 01/21/25 18:00 01/22/25 05:48 2 MG Norepinephrine Bitartrate 250 ml @ 1.875 mls/ hr Q24H IV 01/21/25 19:30 01/21/25 19:30 3.75 MLS/HR Lactulose 30 ml BID PO 01/21/25 22:00 01/22/25 10:21 30 ML Prednisone 20 mg DAILY PO 01/22/25 10:00 01/22/25 10:31 20 MG Examination Morbidly obese female patient lying in the bed, appears sick, right tunneled catheter General: Morbidly obese,, afebrile, palor, scleral icterus, Cardiovascular: Tachycardic but regular S1 and S2. No murmurs, gallops or rubs. No JVD elevation. resolving 2+ pedal pitting edema bilaterally Respiratory: Bilateral decreased air entry heard on auscultation, on RA Abdomen: Soft, distended, nontender normoactive bowel sounds, no rebound tenderness, no organomegaly, no masses Genitourinary: Deferred, Torres catheter seen draining urine MSK/skin: Mobilizes 4 limbs. Skin is dry and warm Neurological: No motor, no sensitive deficits, normal speech. Pupils are isocoric and reactive. Psych/Mental Status: A/Ox3 laboratory and microbiology Laboratory Tests 01/22/25 04:41 Test 01/22/25 04:41 Range/Units Serum Glucose 120 H 74-106 mg/dL Microbiology Date/Time Source Procedure Growth Status 01/21/25 09:45 Blood Blood Culture - Preliminary NO GROWTH AFTER 24 HOURS OF INCUBATION. Resulted 01/11/25 00:20 Nose MRSA Screen - Final Complete 01/08/25 15:00 Ascities Fluid Gram Stain - Final Complete 01/08/25 15:00 Ascities Fluid Body Fluid Culture - Final Complete Labs and/or images reviewed: Labs reviewed by me, Image(s) reviewed by me Problem List/Assessment/Plan Problem List/Assessment/Plan Generalized weakness secondary to acute blood loss anemia ? Upper GI bleed, esophageal varices Hypotension requiring pressor Possible metastatic liver disease - primary unknown (possible ovarian mass) s/p liver biopsy 01/12 Acute on chronic decompensated liver failure - meld score 35->32 - MDF - 40.9- >29.8 , [place] model 0.010 Chronic alcohol dependence Alcoholic withdrawal - CIWA less than 8 Discontinued IV octreotide drip IV pantoprazole b.i.d. GI consultation - DC IV Solu-Medrol 40 mg daily, DC octreotide, continue prednisone IR consulted - liver biopsy 01/12, Liver biopsy shows steatohepatitis and cirrhosis, dysplasia can not be ruled out 01/21-CT abdomen/pelvis with without IV count showed No liver masses are seen, There is some ascites present, Small gallstones without biliary dilatation, Effusion and consolidation in the left lung base IV Levaquin switch to IV Cipro Midodrine 15 mg TID Completed hydrocortisone 50 mg q.6 hours 01/14 to 01/18 prednisone decreased to 20 from 30 mg daily, ursodiol daily Off pressors Beta Whit cant be given given possible variceal bleed MDF/Meld decreasing Acute Kidney Injury likely hepatorenal syndrome vs. pre-renal azotemia -FENA 0.3% requiring hemodialysis hypervolemic hypotonic hyponatremia possibly secondary to cirrhosis Anion gap metabolic acidosis secondary to lactic acid Oliguria nephrology consulted - IV Bumex 2 mg q.6 hourly, metolazone, HD 01/11, 01/12, 01/13, 01/15, 01/17, 01/20, 01/22 Radiology placed tunneled catheter today 01/11 Patient did not tolerate dopamine, heart rate into 160s Discontinued Tolvaptan 30 mg daily Pelvic mass ? Mass versus fibroid Abnormal uterine bleeding OBGYN consultation -[facility]OC for motor expert onc MRI showed 4.9 cm T2 hypointense structure in the posterior right hemipelvis. This may represent an exophytic fibroid versus possible endometrioma. CA 125 elevated # Gallstones , cholelithiasis- outpatient follow-up # History of miscarriage SCDs Renal diet R tunn cath 01/11 Drips: Levophed 02mcg Avoid morphine HLOC per obgyn Plan discussed with patient, at bedside in which all questions have been answered Goals of care discussed with the patient for more than 20 minutes, full code status Case discussed with Dr. Samuels Plan discussed with: Patient, Spouse My Orders My Orders Orders - BRENDA HITCHCOCK Procedure Category Date Status Time Norepinephrine 8 PHA 01/21/25 In Process Mg/250ml Kit 19:30 Lactulose Oral PHA 01/21/25 In Process 22:00 Communication Order ORDERS 01/22/25 Transmitted 13:38 * [employer] CONS 01/22/25 Transmitted Consult Dietary Evaluation Review Comments: 1) Continue thiamin supplementation. Consider adding folic acid and multivitamin. 2) Encourage optimal PO intake 3) Advance to 2g Na 80g hepatic diet when medically feasible 4) Refer to outpatient RD for weight management 5) Follow-up with hepatology, gastroenterology, and nephrology 6) Follow-up with psychiatric social worker r/t ETOH dependency 7) Continue to monitor I&O, labs, and skin integrity Expected Outcomes/Goals: 1) appetite and labs to improve 2) GI symptoms to resolve 3) diet to advance 4) f/u in 3-5 days CC Plasma Assessment Blood Product Administration S: [id number] Date of Service: Jan 22, 2025 Billing Provider: JOE SAMUELS MD Common Visit Codes: [id number] INP/OBS CARE(HIGH) BRENDA HITCHCOCK Jan 22, 2025 15:28 JOE SAMUELS MD Jan 22, 2025 23:25
[2025-01-22] MEDS: NOREPINEPHRINE 8 MG/250ML KIT 250 ML IV SCH (16:51)
[2025-01-22] MEDS: EPOETIN ALFA-EPBX 10,000 UNIT/1ML VIAL SC ONE (17:27)
--- NOTE | 2025-01-22 18:27 | DVHPN2 ---
Progress Note Date Seen: Jan 22, 2025 Has the PT tested + for MRSA If YES, has PT been informed?: No Medical Necessity Reason Pt with a Central, PICC or Fol: Yes The following are medically ne: Central Line, Torres Catheter Subjective Patient reports: No new complaints Objective vital signs Vital Sign Date Time Temp Pulse Resp B/P (MAP) Pulse Ox O2 Delivery O2 Flow Rate FiO2 01/22/25 17:20 110/49 01/22/25 16:30 76 14 98 01/22/25 16:00 97.9 97.9 01/22/25 08:00 Room Air* 0 21 Total Intake and Output 01/21/25 01/21/25 01/22/25 15:00 23:00 07:00 Intake Total 222.50 ml 380.250 ml 510.00 ml Output Total 225 ml 550 ml Balance 222.50 ml 155.250 ml -40.00 ml medications Current Medications Medications Dose Ordered Sig/Bárbara Route Start Time Stop Time Status Last Admin Dose Admin Ondansetron HCl 4 mg Q4HP PRN IV 01/07/25 17:15 01/07/25 19:24 4 MG Docusate Sodium 100 mg BIDPRN PRN PO 01/07/25 17:15 Nitroglycerin 0.4 mg Q5MINP PRN SL 01/07/25 17:15 Pantoprazole Sodium 40 mg BID IV 01/08/25 22:00 01/22/25 10:32 40 MG Metolazone 15 mg DAILY PO 01/11/25 11:00 01/22/25 10:22 15 MG Trazodone HCl 50 mg HS PO 01/12/25 22:00 01/21/25 21:22 50 MG Folic Acid 1 mg DAILY PO 01/12/25 10:00 01/22/25 10:31 1 MG Ciprofloxacin 200 ml @ 200 mls/hr DAILY IV 01/13/25 10:00 01/22/25 10:32 200 MLS/HR Midodrine 15 mg TID@0600,1200,1800 PO 01/13/25 18:00 01/22/25 17:26 15 MG Epoetin Gilbert-epbx 10,000 unit TUTHSA@2100 SC 01/16/25 21:00 01/21/25 21:24 10,000 UNIT Ursodiol 300 mg BID PO 01/16/25 22:00 01/22/25 10:31 300 MG Thiamine HCl 100 mg DAILY PO 01/19/25 10:00 01/22/25 10:31 100 MG Enteral Nutritional Formula 240 ml BID PO 01/19/25 10:00 01/22/25 10:23 240 ML Nystatin 1 applic BID TOP 01/19/25 10:30 01/22/25 10:00 1 APPLIC Albumin Human 100 ml @ 100 mls/hr PRN PRN IV 01/20/25 10:30 01/20/25 11:40 100 MLS/HR Acetaminophen/ Hydrocodone Bitart 1 tab Q6HPRN PRN PO 01/21/25 00:45 01/21/25 12:55 1 TAB Bumetanide 2 mg BIDD IV 01/21/25 18:00 01/22/25 05:48 2 MG Lactulose 30 ml BID PO 01/21/25 22:00 01/22/25 10:21 30 ML Prednisone 20 mg DAILY PO 01/22/25 10:00 01/22/25 10:31 20 MG Norepinephrine Bitartrate 250 ml @ 0.938 mls/ hr Q24H IV 01/22/25 16:00 01/22/25 16:51 1.875 MLS/HR Examination: GENERAL:Normal, MSK:Abnormal laboratory and microbiology Laboratory Tests 01/22/25 04:41 Test 01/22/25 04:41 Range/Units Serum Glucose 120 H 74-106 mg/dL Microbiology Date/Time Source Procedure Growth Status 01/21/25 09:45 Blood Blood Culture - Preliminary NO GROWTH AFTER 24 HOURS OF INCUBATION. Resulted 01/11/25 00:20 Nose MRSA Screen - Final Complete 01/08/25 15:00 Ascities Fluid Gram Stain - Final Complete 01/08/25 15:00 Ascities Fluid Body Fluid Culture - Final Complete Problem List/Assessment/Plan Problem List/Assessment/Plan Acute kidney injury hepatorenal syndrome vs atn ckd II baseline etoh cirrhosis, liver masses severe anasarca and ascites anemia due to liver disease hyponatremia due to volume overload recs hd today,plan for HLOC noted uf as tolerated no MRI contrast Plan discussed with: Patient, Spouse Dietary Evaluation Review Comments: 1) Continue thiamin supplementation. Consider adding folic acid and multivitamin. 2) Encourage optimal PO intake 3) Advance to 2g Na 80g hepatic diet when medically feasible 4) Refer to outpatient RD for weight management 5) Follow-up with hepatology, gastroenterology, and nephrology 6) Follow-up with social worker psychiatric r/t ETOH dependency 7) Continue to monitor I&O, labs, and skin integrity Expected Outcomes/Goals: 1) appetite and labs to improve 2) GI symptoms to resolve 3) diet to advance 4) f/u in 3-5 days CC Plasma Assessment Blood Product Administration S: [id number] EDEL HUANG MD Jan 22, 2025 18:27
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
[2025-01-23] VITALS (98 sets, daily range): BP systolic 81–121; BP diastolic 25–64; PULSE 76–102; RESP 10–30; TEMP 98.1–99.1; O2SAT 89–98
[2025-01-23 06:07] LABS: Hematocrit 20.7 % (36.0-46.0); Hemoglobin 7.1 g/dL (12.2-16.2)
[2025-01-23 06:26] LABS: Iron 47.0 ug/dL (50-170); Total Iron Binding Capacity 209.0 ug/dL (250-425)
[2025-01-23 07:31] LABS: Alkaline Phosphatase 71 U/L (46-116); Anion Gap 15 (5-15); BUN/Creatinine Ratio 14.0 (10.0-20.0); Calcium 9.2 mg/dL (8.7-10.4); Carbon Dioxide 25 mmol/L (20-31); Chloride 100 mmol/L (98-107); Glucose 105 mg/dL (74-106); Potassium 4.0 mmol/L (3.5-5.1); Sodium 140 mmol/L (136-145); Total Protein 7.1 g/dL (5.7-8.2)
[2025-01-23 07:32] LABS: Albumin 3.8 g/dL (3.2-4.8)
[2025-01-23 07:34] LABS: Alanine Aminotransferase 40 U/L (7-40); Bilirubin, Total 7.4 mg/dL (0.2-1.0); Blood Urea Nitrogen 73 mg/dL (9-23)
--- NOTE | 2025-01-23 08:54 | DVHPN2 ---
Progress Note Date Seen: Jan 23, 2025 Has the PT tested + for MRSA If YES, has PT been informed?: No Medical Necessity Reason Pt with a Central, PICC or Fol: Yes The following are medically ne: Central Line, Torres Catheter Subjective Patient reports: No new complaints Objective vital signs Vital Sign Date Time Temp Pulse Resp B/P (MAP) Pulse Ox O2 Delivery O2 Flow Rate FiO2 01/23/25 08:30 108/58 01/23/25 08:15 88 18 95 01/23/25 08:00 98.2 98.2 01/23/25 08:00 Room Air* 0 21 Total Intake and Output 01/22/25 01/22/25 01/23/25 15:00 23:00 07:00 Intake Total 220.625 ml 464.000 ml 269.315 ml Output Total 400 ml 200 ml Balance 220.625 ml 64.000 ml 69.315 ml medications Current Medications Medications Dose Ordered Sig/Bárbara Route Start Time Stop Time Status Last Admin Dose Admin Ondansetron HCl 4 mg Q4HP PRN IV 01/07/25 17:15 01/07/25 19:24 4 MG Docusate Sodium 100 mg BIDPRN PRN PO 01/07/25 17:15 Nitroglycerin 0.4 mg Q5MINP PRN SL 01/07/25 17:15 Pantoprazole Sodium 40 mg BID IV 01/08/25 22:00 01/23/25 08:00 40 MG Metolazone 15 mg DAILY PO 01/11/25 11:00 01/23/25 08:01 15 MG Trazodone HCl 50 mg HS PO 01/12/25 22:00 01/22/25 22:02 50 MG Folic Acid 1 mg DAILY PO 01/12/25 10:00 01/23/25 08:00 1 MG Ciprofloxacin 200 ml @ 200 mls/hr DAILY IV 01/13/25 10:00 01/23/25 08:00 200 MLS/HR Midodrine 15 mg TID@0600,1200,1800 PO 01/13/25 18:00 01/23/25 05:55 15 MG Epoetin Gilbert-epbx 10,000 unit TUTHSA@2100 SC 01/16/25 21:00 01/21/25 21:24 10,000 UNIT Ursodiol 300 mg BID PO 01/16/25 22:00 01/23/25 08:00 300 MG Thiamine HCl 100 mg DAILY PO 01/19/25 10:00 01/23/25 08:00 100 MG Enteral Nutritional Formula 240 ml BID PO 01/19/25 10:00 01/23/25 08:31 240 ML Nystatin 1 applic BID TOP 01/19/25 10:30 01/23/25 08:01 1 APPLIC Albumin Human 100 ml @ 100 mls/hr PRN PRN IV 01/20/25 10:30 01/20/25 11:40 100 MLS/HR Acetaminophen/ Hydrocodone Bitart 1 tab Q6HPRN PRN PO 01/21/25 00:45 01/21/25 12:55 1 TAB Bumetanide 2 mg BIDD IV 01/21/25 18:00 01/23/25 05:55 2 MG Lactulose 30 ml BID PO 01/21/25 22:00 01/23/25 08:00 30 ML Prednisone 20 mg DAILY PO 01/22/25 10:00 01/23/25 08:01 20 MG Norepinephrine Bitartrate 250 ml @ 0.938 mls/ hr Q24H IV 01/22/25 16:00 01/22/25 16:51 1.875 MLS/HR Examination: MSK:Abnormal laboratory and microbiology Laboratory Tests 01/23/25 05:27 01/22/25 04:41 Test 01/23/25 05:27 Range/Units Serum Glucose 105 74-106 mg/dL Microbiology Date/Time Source Procedure Growth Status 01/21/25 09:45 Blood Blood Culture - Preliminary NO GROWTH AFTER 24 HOURS OF INCUBATION. Resulted 01/11/25 00:20 Nose MRSA Screen - Final Complete 01/08/25 15:00 Ascities Fluid Gram Stain - Final Complete 01/08/25 15:00 Ascities Fluid Body Fluid Culture - Final Complete Problem List/Assessment/Plan Problem List/Assessment/Plan Acute kidney injury hepatorenal syndrome vs atn ckd II baseline etoh cirrhosis, liver masses severe anasarca and ascites anemia due to liver disease hyponatremia due to volume overload recs hd today 01/23 for solute clearance ,plan for HLOC noted uf as tolerated no MRI contrast Plan discussed with: Patient My Orders My Orders Orders - EDEL HUANG MD Procedure Category Date Status Time Hemodialysis Orders ORDERS 01/23/25 Transmitted 08:46 Dietary Evaluation Review Comments: 1) Continue thiamin supplementation. Consider adding folic acid and multivitamin. 2) Encourage optimal PO intake 3) Advance to 2g Na 80g hepatic diet when medically feasible 4) Refer to outpatient RD for weight management 5) Follow-up with hepatology, gastroenterology, and nephrology 6) Follow-up with long term care social worker r/t ETOH dependency 7) Continue to monitor I&O, labs, and skin integrity Expected Outcomes/Goals: 1) appetite and labs to improve 2) GI symptoms to resolve 3) diet to advance 4) f/u in 3-5 days CC Plasma Assessment Blood Product Administration S: [id number] EDEL HUANG MD Jan 23, 2025 08:54
[2025-01-23] MEDS: SODIUM CHL 0.9% 1000 ML BAG XX ONE (10:45)
--- NOTE | 2025-01-23 11:39 | DVHPN2 ---
Subjective Patient is a 38-year-old female with past medical history of chronic severe anemia which required blood transfusions via before in June on August, uterine fibroids, chronic liver ascites who came to the ED with chief complaint of severe diffuse abdominal pain 01/17 in intensity, which radiates to the back, gradual increase in shortness of breath, and nausea since the past week. She complained of severe bloating and abdominal swelling since last Saturday, dry mouth, dry cough, dizziness, and bilateral leg pain due to edema. but he denies any hematemesis, headaches, diarrhea, dysuria, hematuria, but she complains her stool is darker than usual. Patient was supposed to follow-up with OBGYN for possible hysterectomy but did not. She states that she had no prior diagnosis of cirrhosis but was told during her June 2024 admission that she had liver and kidney damage. 01/11 - Patient seen and examined at the bedside. Reports feeling weak, IR placed tunneled catheter for dialysis. Dopamine started, patient did not tolerate, HR into 160s, decreased with vagal maneuvers. Discontinue dopamine. Continue diuresis. Radiologist consulted for liver biopsy. 01/12 - patient seen and examined, underwent HD last night 2.4 L taken out, underwent hemodialysis today, 2 L taken off. Patient is requiring Levophed during hemodialysis. Pending liver biopsy. 01/13 - patient underwent hemodialysis this morning. Midodrine increased to 15 mg TID. Right tunneled catheter intermittently bleeding, Dermabond in place. 01/14-patient seen and examined, right tunneled catheter clotted blood seen. Diet increased to soft diet. Echocardiogram ordered, Levophed 6 01/15 - patient underwent hemodialysis, 2.6 L taken out, started prednisone 40mg daily. 01/16 - patient seen and examined, weaned off IV pressors, GI decreased prednisone to 30 mg daily, ursodiol daily, MAP goal > 60. 01/18 - patient off pressors, underwent hemodialysis 01/17 01/19 -dc hydrocortisone. Liver biopsy shows steatohepatitis and cirrhosis, dysplasia can not be ruled out 01/20 - hemodialysis, patient requiring levophed 6, Had bowel movement, GI recommends MRI chest/abdomen/pelvis with contrast as outpatient. 01/21 - patient seen and examined, CT abdomen/pelvis with without IV count showed No liver masses are seen, There is some ascites present, Small gallstones without biliary dilatation, Effusion and consolidation in the left lung base Pelvic ultrasound showed 5 cm right adnexal heterogeneous mass with vascularity. MRI with IV contrast recommended. Levophed 2 mcg/minute 01/22 - On levophed 1, patient sitting in a chair, OBGYN recommends HLOC - for pelvic mass biopsy (5 cm right adnexal heterogeneous mass with vascularity, CA125: 527) and inpatient eval for possible metastaic cancer by computer numerical control operator oncology per [facility]. HD today 01/23: 39-year-old female, history of alcohol dependence, alcoholic liver cirrhosis. Patient is here for hepatorenal syndrome, now dialysis dependent. She has chair time already set up. We have been having trouble getting patient weaned off of Levophed. Discuss with Nephrology, patient needs transplant but does not qualify because of recent alcohol relapse. We will change Bumex to p.o., restart subcu octreotide, continue midodrine 15 t.i.d. , start hydrocortisone tablet 30 mg daily.. Very poor prognosis Reviewed: Care Plan Changes from previous H/P or p: No Changes General: Per HPI Eyes: No Pain, No Vision change, No Conjunctivae inflammation, No Eyelid inflammation, No Other, No Redness ENT: No Ear pain, No Ear discharge, No Nose pain, No Nose discharge, No Nose congestion, No Mouth pain, No Mouth swelling, No Throat pain, No Throat swelling, No Other Cardiovascular: No Chest Pain, No Palpitations, No Orthopnea, No Paroxysmal Noc. Dyspnea; Edema; No Lt Headedness, No Other Respiratory: No Cough, No Dry, No Shortness of breath, No SOB with excertion, No Wheezing, No Hemoptysis, No Pleuritic Pain, No Sputum, No Other Gastrointestinal: Nausea; No Vomiting; Abdominal Pain; No Diarrhea, No Constipation; Melena; No Hematochezia, No Other Genitourinary: No Dysuria, No Frequency, No Incontinence, No Hematuria, No Retention, No Other Musculoskeletal: No other, No neck pain, No shoulder pain, No arm pain, No back pain, No hand pain, No leg pain, No foot pain Skin: No Rash, No Lesions, No Jaundice, No Bruising, No Other Objective Vitals Vital Signs Date Time Temp Pulse Resp B/P (MAP) Pulse Ox O2 Delivery O2 Flow Rate FiO2 01/23/25 11:00 77 17 103/42 (62) 96 01/23/25 08:00 98.2 98.2 01/23/25 08:00 Room Air* 0 21 Intake/Output Intake and Output 01/23/25 07:00 Intake Total 953.940 ml Output Total 600 ml Balance 353.940 ml Intake Oral 693 ml IV Total 260.940 ml Output Urine Total 600 ml # Bowel Movements 1 Exam General: Morbidly obese,, afebrile, palor, scleral icterus, Cardiovascular: Tachycardic but regular S1 and S2. No murmurs, gallops or rubs. No JVD elevation. resolving 2+ pedal pitting edema bilaterally Respiratory: Bilateral decreased air entry heard on auscultation, on RA Abdomen: Soft, distended, nontender normoactive bowel sounds, no rebound tenderness, no organomegaly, no masses Genitourinary: Deferred, Torres catheter seen draining urine MSK/skin: Mobilizes 4 limbs. Skin is dry and warm Neurological: No motor, no sensitive deficits, normal speech. Pupils are isocoric and reactive. Psych/Mental Status: A/Ox3 General Appearance: Alert, Oriented X3, Cooperative, No acute distress, mild distress, moderate distress, severe distress, Other Lungs: Clear to auscultation, Normal air movement, Other Cardiovascular: Regular rate, Normal S1, Normal S2, No murmurs, Gallops, Rubs, Other Abdomen: Normal bowel sounds, Soft, No tenderness, No hepatospenomegaly, No masses, Other (Slight distention and generalized tenderness) Medications Current Medications Medications Dose Ordered Sig/Bárbara Route Start Time Stop Time Status Last Admin Dose Admin Ondansetron HCl 4 mg Q4HP PRN IV 01/07/25 17:15 01/07/25 19:24 4 MG Docusate Sodium 100 mg BIDPRN PRN PO 01/07/25 17:15 Nitroglycerin 0.4 mg Q5MINP PRN SL 01/07/25 17:15 Pantoprazole Sodium 40 mg BID IV 01/08/25 22:00 01/23/25 08:00 40 MG Metolazone 15 mg DAILY PO 01/11/25 11:00 01/23/25 08:01 15 MG Trazodone HCl 50 mg HS PO 01/12/25 22:00 01/22/25 22:02 50 MG Folic Acid 1 mg DAILY PO 01/12/25 10:00 01/23/25 08:00 1 MG Ciprofloxacin 200 ml @ 200 mls/hr DAILY IV 01/13/25 10:00 01/23/25 08:00 200 MLS/HR Midodrine 15 mg TID@0600,1200,1800 PO 01/13/25 18:00 01/23/25 05:55 15 MG Epoetin Gilbert-epbx 10,000 unit TUTHSA@2100 SC 01/16/25 21:00 01/21/25 21:24 10,000 UNIT Ursodiol 300 mg BID PO 01/16/25 22:00 01/23/25 08:00 300 MG Thiamine HCl 100 mg DAILY PO 01/19/25 10:00 01/23/25 08:00 100 MG Enteral Nutritional Formula 240 ml BID PO 01/19/25 10:00 01/23/25 08:31 240 ML Nystatin 1 applic BID TOP 01/19/25 10:30 01/23/25 08:01 1 APPLIC Albumin Human 100 ml @ 100 mls/hr PRN PRN IV 01/20/25 10:30 01/20/25 11:40 100 MLS/HR Acetaminophen/ Hydrocodone Bitart 1 tab Q6HPRN PRN PO 01/21/25 00:45 01/21/25 12:55 1 TAB Bumetanide 2 mg BIDD IV 01/21/25 18:00 01/23/25 05:55 2 MG Lactulose 30 ml BID PO 01/21/25 22:00 01/23/25 08:00 30 ML Prednisone 20 mg DAILY PO 01/22/25 10:00 01/23/25 08:01 20 MG Norepinephrine Bitartrate 250 ml @ 0.938 mls/ hr Q24H IV 01/22/25 16:00 01/22/25 16:51 1.875 MLS/HR Laboratory Results Laboratory Tests 01/22/25 04:41 01/23/25 05:27 Chemistry Test 01/23/25 05:27 Albumin 3.8 g/dL (3.2-4.8) Calcium Level 9.2 mg/dL (8.7-10.4) Total Protein 7.1 g/dL (5.7-8.2) LFT Test 01/23/25 05:27 Alanine Aminotransferase (ALT) 40 U/L (7-40) Alkaline Phosphatase 71 U/L (46-116) Aspartate Amino Transferase (AST) 48 U/L (13-40) H Total Bilirubin 7.4 mg/dL (0.2-1.0) H Urinalysis Test 01/08/25 16:30 01/09/25 21:52 01/11/25 10:55 Urine Color Yellow (Yellow) Urine Clarity Turbid (Clear) H Urine pH 5.5 (5.0-9.0) Urine Specific Musella 1.014 (1.001-1.035) Urine Protein 2+ (Negative) H Urine Ketones Negative (Negative) Urine Blood Negative /uL (Negative) Urine Nitrite Negative (Negative) Urine Bilirubin 1+ (Negative) H Urine Urobilinogen 2 mg/dL (Negative) H Urine Leukocyte Esterase Negative /uL (Negative) Urine RBC 2 /hpf (0 - 4) Urine Microscopic WBC 3 /HPF (0-5) Urine Squamous Epithelial Cells Few /hpf (<5) Urine Amorphous Crystals Mod /hpf (None Seen) Urine Bacteria Few /hpf (None Seen) H Urine Protein/Creatinine Ratio 0.96 Urine Glucose Normal mg/dL (Normal) Urine Total Protein 232.7 mg/dL (1-14) H Urine Creatinine 180.93 mg/dL (30.0-125.0) H Urine Sodium 27 mmol/L (40-220) L Urine Osmolality 225 mOsm/kg Microbiology Microbiology Date/Time Source Procedure Growth Status 01/21/25 09:45 Blood Blood Culture - Preliminary NO GROWTH AFTER 48 HOURS OF INCUBATION. Resulted 01/11/25 00:20 Nose MRSA Screen - Final Complete 01/08/25 15:00 Ascities Fluid Gram Stain - Final Complete 01/08/25 15:00 Ascities Fluid Body Fluid Culture - Final Complete Labs and/or images reviewed: Labs reviewed by me, Image(s) reviewed by me Assessment/Plan Assessment/Plan Generalized weakness secondary to acute blood loss anemia ? Upper GI bleed, esophageal varices Hypotension requiring pressor Possible metastatic liver disease - primary unknown (possible ovarian mass) s/p liver biopsy 01/12 Acute on chronic decompensated liver failure - meld score 35->32 - MDF - 40.9- >29.8 , [place] model 0.010 Chronic alcohol dependence Alcoholic withdrawal - CIWA less than 8 Discontinued IV octreotide drip IV pantoprazole b.i.d. GI consultation - DC IV Solu-Medrol 40 mg daily, DC octreotide, continue prednisone IR consulted - liver biopsy 01/12, Liver biopsy shows steatohepatitis and cirrhosis, dysplasia can not be ruled out 01/21-CT abdomen/pelvis with without IV count showed No liver masses are seen, There is some ascites present, Small gallstones without biliary dilatation, Effusion and consolidation in the left lung base IV Levaquin switch to IV Cipro Midodrine 15 mg TID Completed hydrocortisone 50 mg q.6 hours 01/14 to 01/18 prednisone decreased to 20 from 30 mg daily, ursodiol daily Off pressors Beta Whit cant be given given possible variceal bleed MDF/Meld decreasing Acute Kidney Injury likely hepatorenal syndrome vs. pre-renal azotemia -FENA 0.3% requiring hemodialysis hypervolemic hypotonic hyponatremia possibly secondary to cirrhosis Anion gap metabolic acidosis secondary to lactic acid Oliguria nephrology consulted - IV Bumex 2 mg q.6 hourly, metolazone, HD 01/11, 01/12, 01/13, 01/15, 01/17, 01/20, 01/22 Radiology placed tunneled catheter today 01/11 Patient did not tolerate dopamine, heart rate into 160s Discontinued Tolvaptan 30 mg daily Pelvic mass ? Mass versus fibroid Abnormal uterine bleeding OBGYN consultation -[facility]OC for computer numerical control operator onc MRI showed 4.9 cm T2 hypointense structure in the posterior right hemipelvis. This may represent an exophytic fibroid versus possible endometrioma. CA 125 elevated # Gallstones , cholelithiasis- outpatient follow-up # History of miscarriage SCDs Renal diet R tunn cath 01/11 Drips: Levophed 02mcg Avoid morphine HLOC declined by [facility] - dc transfer Plan discussed with patient, at bedside in which all questions have been answered Goals of care discussed with the patient for more than 20 minutes, full code status Plan discussed with: Patient Date of Service: Jan 23, 2025 Billing Provider: GONZALO GREGORY MD Common Visit Codes: 73572-[id number] CARE 30-74 MIN GONZALO GREGORY MD Jan 23, 2025 11:39
[2025-01-23] MEDS: BUMETANIDE 1 MG TAB PO SCH (17:38)
[2025-01-23] MEDS: HYDROCORTISONE 10 MG TAB PO SCH (17:39)
[2025-01-23] MEDS: OCTREOTIDE ACETATE 100 MCG/ML VL SUBCUT SCH (21:52)
[2025-01-24] VITALS (94 sets, daily range): BP systolic 86–119; BP diastolic 39–65; PULSE 60–86; RESP 9–22; TEMP 97.9–98.6; O2SAT 86–100
[2025-01-24 06:04] LABS: Nucleated Red Blood Cells % 0.1 %
[2025-01-24 06:05] LABS: Hematocrit 21.3 % (36.0-46.0); Hemoglobin 7.1 g/dL (12.2-16.2); Mean Corpuscular Hemoglobin 29.6 pg (28.0-32.0); Mean Corpuscular Volume 88.8 fL (80.0-100.0)
[2025-01-24 06:10] LABS: Anion Gap 13 (5-15); Carbon Dioxide 27 mmol/L (20-31); Chloride 98 mmol/L (98-107); Potassium 4.2 mmol/L (3.5-5.1); Sodium 138 mmol/L (136-145)
[2025-01-24 06:11] LABS: Calcium 9.3 mg/dL (8.7-10.4)
[2025-01-24 06:16] LABS: BUN/Creatinine Ratio 11.3 (10.0-20.0); Magnesium 2.1 mg/dL (1.6-2.6)
[2025-01-24 06:26] LABS: Blood Urea Nitrogen 55 mg/dL (9-23); Glucose 149 mg/dL (74-106)
[2025-01-24 08:29] LABS: Anisocytosis Slight
--- NOTE | 2025-01-24 12:01 | DVHPN2 ---
Subjective Patient is a 38-year-old female with past medical history of chronic severe anemia which required blood transfusions via before in June on August, uterine fibroids, chronic liver ascites who came to the ED with chief complaint of severe diffuse abdominal pain 01/17 in intensity, which radiates to the back, gradual increase in shortness of breath, and nausea since the past week. She complained of severe bloating and abdominal swelling since last Saturday, dry mouth, dry cough, dizziness, and bilateral leg pain due to edema. but he denies any hematemesis, headaches, diarrhea, dysuria, hematuria, but she complains her stool is darker than usual. Patient was supposed to follow-up with OBGYN for possible hysterectomy but did not. She states that she had no prior diagnosis of cirrhosis but was told during her June 2024 admission that she had liver and kidney damage. 01/11 - Patient seen and examined at the bedside. Reports feeling weak, IR placed tunneled catheter for dialysis. Dopamine started, patient did not tolerate, HR into 160s, decreased with vagal maneuvers. Discontinue dopamine. Continue diuresis. Radiologist consulted for liver biopsy. 01/12 - patient seen and examined, underwent HD last night 2.4 L taken out, underwent hemodialysis today, 2 L taken off. Patient is requiring Levophed during hemodialysis. Pending liver biopsy. 01/13 - patient underwent hemodialysis this morning. Midodrine increased to 15 mg TID. Right tunneled catheter intermittently bleeding, Dermabond in place. 01/14-patient seen and examined, right tunneled catheter clotted blood seen. Diet increased to soft diet. Echocardiogram ordered, Levophed 6 01/15 - patient underwent hemodialysis, 2.6 L taken out, started prednisone 40mg daily. 01/16 - patient seen and examined, weaned off IV pressors, GI decreased prednisone to 30 mg daily, ursodiol daily, MAP goal > 60. 01/18 - patient off pressors, underwent hemodialysis 01/17 01/19 -dc hydrocortisone. Liver biopsy shows steatohepatitis and cirrhosis, dysplasia can not be ruled out 01/20 - hemodialysis, patient requiring levophed 6, Had bowel movement, GI recommends MRI chest/abdomen/pelvis with contrast as outpatient. 01/21 - patient seen and examined, CT abdomen/pelvis with without IV count showed No liver masses are seen, There is some ascites present, Small gallstones without biliary dilatation, Effusion and consolidation in the left lung base Pelvic ultrasound showed 5 cm right adnexal heterogeneous mass with vascularity. MRI with IV contrast recommended. Levophed 2 mcg/minute 01/22 - On levophed 1, patient sitting in a chair, OBGYN recommends HLOC - for pelvic mass biopsy (5 cm right adnexal heterogeneous mass with vascularity, CA125: [id number]) and inpatient eval for possible metastaic cancer by gear room keeper oncology per [employer] DIRECTOR. HD today 01/23: 39-year-old female, history of alcohol dependence, alcoholic liver cirrhosis. Patient is here for hepatorenal syndrome, now dialysis dependent. She has chair time already set up. We have been having trouble getting patient weaned off of Levophed. Discuss with Nephrology, patient needs transplant but does not qualify because of recent alcohol relapse. We will change Bumex to p.o., restart subcu octreotide, continue midodrine 15 t.i.d. , start hydrocortisone tablet 30 mg daily.. Very poor prognosis 01/24: Changes in treatment plan yesterday appear to be working, patient is off of Levophed for 24 hours. We will downgrade to tele today and continue monitoring. Patient already has chair time set up. Follow up with Nephrology and GI. Although the patient is off of vasopressor, prognosis remains very poor. Patient is still needs liver transplant but not a candidate due to recent alcohol relapse. Reviewed: Care Plan Changes from previous H/P or p: No Changes General: Per HPI Eyes: No Pain, No Vision change, No Conjunctivae inflammation, No Eyelid inflammation, No Other, No Redness ENT: No Ear pain, No Ear discharge, No Nose pain, No Nose discharge, No Nose congestion, No Mouth pain, No Mouth swelling, No Throat pain, No Throat swelling, No Other Cardiovascular: No Chest Pain, No Palpitations, No Orthopnea, No Paroxysmal Noc. Dyspnea; Edema; No Lt Headedness, No Other Respiratory: No Cough, No Dry, No Shortness of breath, No SOB with excertion, No Wheezing, No Hemoptysis, No Pleuritic Pain, No Sputum, No Other Gastrointestinal: Nausea; No Vomiting; Abdominal Pain; No Diarrhea, No Constipation; Melena; No Hematochezia, No Other Genitourinary: No Dysuria, No Frequency, No Incontinence, No Hematuria, No Retention, No Other Musculoskeletal: No other, No neck pain, No shoulder pain, No arm pain, No back pain, No hand pain, No leg pain, No foot pain Skin: No Rash, No Lesions, No Jaundice, No Bruising, No Other Objective Vitals Vital Signs Date Time Temp Pulse Resp B/P (MAP) Pulse Ox O2 Delivery O2 Flow Rate FiO2 01/24/25 10:15 77 17 100/53 (69) 94 01/24/25 08:00 98.6 98.6 01/24/25 07:35 Room Air* 0 21 Intake/Output Intake and Output 01/24/25 07:00 Intake Total 1512.376 ml Output Total 200 ml Balance 1312.376 ml Intake Oral 1303 ml IV Total 209.376 ml Output Urine Total 200 ml # Bowel Movements 2 Exam General: Morbidly obese,, afebrile, palor, scleral icterus, Cardiovascular: Tachycardic but regular S1 and S2. No murmurs, gallops or rubs. No JVD elevation. resolving 2+ pedal pitting edema bilaterally Respiratory: Bilateral decreased air entry heard on auscultation, on RA Abdomen: Soft, distended, nontender normoactive bowel sounds, no rebound tenderness, no organomegaly, no masses Genitourinary: Deferred, Torres catheter seen draining urine MSK/skin: Mobilizes 4 limbs. Skin is dry and warm Neurological: No motor, no sensitive deficits, normal speech. Pupils are isocoric and reactive. Psych/Mental Status: A/Ox3 General Appearance: Alert, Oriented X3, Cooperative, No acute distress, mild distress, moderate distress, severe distress, Other Lungs: Clear to auscultation, Normal air movement, Other Cardiovascular: Regular rate, Normal S1, Normal S2, No murmurs, Gallops, Rubs, Other Abdomen: Normal bowel sounds, Soft, No tenderness, No hepatospenomegaly, No masses, Other (Slight distention and generalized tenderness) Medications Current Medications Medications Dose Ordered Sig/Bárbara Route Start Time Stop Time Status Last Admin Dose Admin Ondansetron HCl 4 mg Q4HP PRN IV 01/07/25 17:15 01/07/25 19:24 4 MG Docusate Sodium 100 mg BIDPRN PRN PO 01/07/25 17:15 Nitroglycerin 0.4 mg Q5MINP PRN SL 01/07/25 17:15 Pantoprazole Sodium 40 mg BID IV 01/08/25 22:00 01/24/25 08:00 40 MG Metolazone 15 mg DAILY PO 01/11/25 11:00 01/24/25 08:01 15 MG Trazodone HCl 50 mg HS PO 01/12/25 22:00 01/23/25 21:51 50 MG Folic Acid 1 mg DAILY PO 01/12/25 10:00 01/24/25 08:02 1 MG Ciprofloxacin 200 ml @ 200 mls/hr DAILY IV 01/13/25 10:00 01/24/25 08:00 200 MLS/HR Midodrine 15 mg TID@0600,1200,1800 PO 01/13/25 18:00 01/24/25 11:53 15 MG Epoetin Gilbert-epbx 10,000 unit TUTHSA@2100 SC 01/16/25 21:00 01/23/25 21:51 10,000 UNIT Ursodiol 300 mg BID PO 01/16/25 22:00 01/24/25 08:01 300 MG Thiamine HCl 100 mg DAILY PO 01/19/25 10:00 01/24/25 08:01 100 MG Enteral Nutritional Formula 240 ml BID PO 01/19/25 10:00 01/24/25 08:02 240 ML Nystatin 1 applic BID TOP 01/19/25 10:30 01/24/25 08:02 1 APPLIC Albumin Human 100 ml @ 100 mls/hr PRN PRN IV 01/20/25 10:30 01/20/25 11:40 100 MLS/HR Lactulose 30 ml BID PO 01/21/25 22:00 01/24/25 08:00 30 ML Prednisone 20 mg DAILY PO 01/22/25 10:00 01/24/25 08:01 20 MG Norepinephrine Bitartrate 250 ml @ 0.938 mls/ hr Q24H IV 01/22/25 16:00 01/22/25 16:51 1.875 MLS/HR Octreotide Acetate 100 mcg BID SUBCUT 01/23/25 22:00 01/24/25 08:01 100 MCG Bumetanide 2 mg BIDD PO 01/23/25 18:00 01/24/25 05:34 2 MG Hydrocortisone 30 mg DAILY PO 01/23/25 17:15 01/24/25 08:01 30 MG Laboratory Results Laboratory Tests 01/24/25 05:30 Chemistry Test 01/24/25 05:30 Calcium Level 9.3 mg/dL (8.7-10.4) Magnesium Level 2.1 mg/dL (1.6-2.6) Urinalysis Test 01/08/25 16:30 01/09/25 21:52 01/11/25 10:55 Urine Color Yellow (Yellow) Urine Clarity Turbid (Clear) H Urine pH 5.5 (5.0-9.0) Urine Specific [place] 1.014 (1.001-1.035) Urine Protein 2+ (Negative) H Urine Ketones Negative (Negative) Urine Blood Negative /uL (Negative) Urine Nitrite Negative (Negative) Urine Bilirubin 1+ (Negative) H Urine Urobilinogen 2 mg/dL (Negative) H Urine Leukocyte Esterase Negative /uL (Negative) Urine RBC 2 /hpf (0 - 4) Urine Microscopic WBC 3 /HPF (0-5) Urine Squamous Epithelial Cells Few /hpf (<5) Urine Amorphous Crystals Mod /hpf (None Seen) Urine Bacteria Few /hpf (None Seen) H Urine Protein/Creatinine Ratio 0.96 Urine Glucose Normal mg/dL (Normal) Urine Total Protein 232.7 mg/dL (1-14) H Urine Creatinine 180.93 mg/dL (30.0-125.0) H Urine Sodium 27 mmol/L (40-220) L Urine Osmolality 225 mOsm/kg Microbiology Microbiology Date/Time Source Procedure Growth Status 01/21/25 09:45 Blood Blood Culture - Preliminary NO GROWTH AFTER 72 HOURS OF INCUBATION. Resulted 01/11/25 00:20 Nose MRSA Screen - Final Complete 01/08/25 15:00 Ascities Fluid Gram Stain - Final Complete 01/08/25 15:00 Ascities Fluid Body Fluid Culture - Final Complete Labs and/or images reviewed: Labs reviewed by me, Image(s) reviewed by me Assessment/Plan Assessment/Plan Generalized weakness secondary to acute blood loss anemia ? Upper GI bleed, esophageal varices Hypotension requiring pressor Possible metastatic liver disease - primary unknown (possible ovarian mass) s/p liver biopsy 01/12 Acute on chronic decompensated liver failure - meld score 35->32 - MDF - 40.9- >29.8 , [place] model 0.010 Chronic alcohol dependence Alcoholic withdrawal - CIWA less than 8 Discontinued IV octreotide drip IV pantoprazole b.i.d. GI consultation - DC IV Solu-Medrol 40 mg daily, DC octreotide, continue prednisone IR consulted - liver biopsy 01/12, Liver biopsy shows steatohepatitis and cirrhosis, dysplasia can not be ruled out 01/21-CT abdomen/pelvis with without IV count showed No liver masses are seen, There is some ascites present, Small gallstones without biliary dilatation, Effusion and consolidation in the left lung base IV Levaquin switch to IV Cipro Midodrine 15 mg TID Completed hydrocortisone 50 mg q.6 hours 01/14 to 01/18 prednisone decreased to 20 from 30 mg daily, ursodiol daily Off pressors Beta Whit cant be given given possible variceal bleed MDF/Meld decreasing Acute Kidney Injury likely hepatorenal syndrome vs. pre-renal azotemia -FENA 0.3% requiring hemodialysis hypervolemic hypotonic hyponatremia possibly secondary to cirrhosis Anion gap metabolic acidosis secondary to lactic acid Oliguria nephrology consulted - IV Bumex 2 mg q.6 hourly, metolazone, HD 01/11, 01/12, 01/13, 01/15, 01/17, 01/20, 01/22 Radiology placed tunneled catheter today 01/11 Patient did not tolerate dopamine, heart rate into 160s Discontinued Tolvaptan 30 mg daily Pelvic mass ? Mass versus fibroid Abnormal uterine bleeding OBGYN consultation -[facility] for gear room keeper onc MRI showed 4.9 cm T2 hypointense structure in the posterior right hemipelvis. This may represent an exophytic fibroid versus possible endometrioma. CA 125 elevated # Gallstones , cholelithiasis- outpatient follow-up # History of miscarriage SCDs Renal diet R tunn cath 01/11 Drips: Levophed 02mcg Avoid morphine HLOC declined by [facility] - dc transfer Plan discussed with patient, at bedside in which all questions have been answered Goals of care discussed with the patient for more than 20 minutes, full code status Plan discussed with: Patient My Orders Orders - GONZALO GREGORY MD Procedure Category Date Status Time Octreotide Acetate PHA 01/23/25 In Process (Sandostatin) 22:00 Bumetanide Tablet PHA 01/23/25 In Process (Bumex Tablet) 18:00 Hydrocortisone Tablet PHA 01/23/25 In Process (Cortef Tablet) 17:15 Date of Service: Jan 24, 2025 Billing Provider: GONZALO GREGORY MD Common Visit Codes: 39930-[id number] CARE 30-74 MIN GONZALO GREGORY MD Jan 24, 2025 12:01
--- NOTE | 2025-01-24 12:34 | DVHPN2 ---
Progress Note Date Seen: Jan 24, 2025 Has the PT tested + for MRSA If YES, has PT been informed?: No Medical Necessity Reason Pt with a Central, PICC or Fol: Yes The following are medically ne: Central Line, Torres Catheter Subjective Patient reports: No new complaints Review of Systems: Deferred Objective vital signs Vital Sign Date Time Temp Pulse Resp B/P (MAP) Pulse Ox O2 Delivery O2 Flow Rate FiO2 01/24/25 12:18 72 01/24/25 12:00 18 97/55 (69) 94 01/24/25 08:00 98.6 98.6 01/24/25 07:35 Room Air* 0 21 Total Intake and Output 01/23/25 01/23/25 01/24/25 15:00 23:00 07:00 Intake Total 209.376 ml 867 ml 436 ml Output Total 100 ml 100 ml Balance 209.376 ml 767 ml 336 ml medications Current Medications Medications Dose Ordered Sig/Bárbara Route Start Time Stop Time Status Last Admin Dose Admin Ondansetron HCl 4 mg Q4HP PRN IV 01/07/25 17:15 01/07/25 19:24 4 MG Docusate Sodium 100 mg BIDPRN PRN PO 01/07/25 17:15 Nitroglycerin 0.4 mg Q5MINP PRN SL 01/07/25 17:15 Pantoprazole Sodium 40 mg BID IV 01/08/25 22:00 01/24/25 08:00 40 MG Metolazone 15 mg DAILY PO 01/11/25 11:00 01/24/25 08:01 15 MG Trazodone HCl 50 mg HS PO 01/12/25 22:00 01/23/25 21:51 50 MG Folic Acid 1 mg DAILY PO 01/12/25 10:00 01/24/25 08:02 1 MG Ciprofloxacin 200 ml @ 200 mls/hr DAILY IV 01/13/25 10:00 01/24/25 08:00 200 MLS/HR Midodrine 15 mg TID@0600,1200,1800 PO 01/13/25 18:00 01/24/25 11:53 15 MG Epoetin Gilbert-epbx 10,000 unit TUTHSA@2100 SC 01/16/25 21:00 01/23/25 21:51 10,000 UNIT Ursodiol 300 mg BID PO 01/16/25 22:00 01/24/25 08:01 300 MG Thiamine HCl 100 mg DAILY PO 01/19/25 10:00 01/24/25 08:01 100 MG Enteral Nutritional Formula 240 ml BID PO 01/19/25 10:00 01/24/25 08:02 240 ML Nystatin 1 applic BID TOP 01/19/25 10:30 01/24/25 08:02 1 APPLIC Albumin Human 100 ml @ 100 mls/hr PRN PRN IV 01/20/25 10:30 01/20/25 11:40 100 MLS/HR Lactulose 30 ml BID PO 01/21/25 22:00 01/24/25 08:00 30 ML Prednisone 20 mg DAILY PO 01/22/25 10:00 01/24/25 08:01 20 MG Norepinephrine Bitartrate 250 ml @ 0.938 mls/ hr Q24H IV 01/22/25 16:00 01/22/25 16:51 1.875 MLS/HR Octreotide Acetate 100 mcg BID SUBCUT 01/23/25 22:00 01/24/25 08:01 100 MCG Bumetanide 2 mg BIDD PO 01/23/25 18:00 01/24/25 05:34 2 MG Hydrocortisone 30 mg DAILY PO 01/23/25 17:15 01/24/25 08:01 30 MG Examination: GENERAL:Normal, MSK:Abnormal, SKIN:Normal, NEURO:Normal laboratory and microbiology Laboratory Tests 01/24/25 05:30 Test 01/24/25 05:30 Range/Units Serum Glucose 149 H 74-106 mg/dL Microbiology Date/Time Source Procedure Growth Status 01/21/25 09:45 Blood Blood Culture - Preliminary NO GROWTH AFTER 72 HOURS OF INCUBATION. Resulted 01/11/25 00:20 Nose MRSA Screen - Final Complete 01/08/25 15:00 Ascities Fluid Gram Stain - Final Complete 01/08/25 15:00 Ascities Fluid Body Fluid Culture - Final Complete Problem List/Assessment/Plan Problem List/Assessment/Plan Acute kidney injury hepatorenal syndrome vs atn ckd II baseline etoh cirrhosis, liver masses severe anasarca and ascites anemia due to liver disease hyponatremia due to volume overload recs hd 01/23 ,next HD saturday likely plan for HLOC noted uf as tolerated no MRI contrast Plan discussed with: Patient Dietary Evaluation Review Comments: 1) Continue thiamin supplementation. Consider adding folic acid and multivitamin. 2) Encourage optimal PO intake 3) Advance to 2g Na 80g hepatic diet when medically feasible 4) Refer to outpatient RD for weight management 5) Follow-up with hepatology, gastroenterology, and nephrology 6) Follow-up with psychiatric social worker supervisor r/t ETOH dependency 7) Continue to monitor I&O, labs, and skin integrity Expected Outcomes/Goals: 1) appetite and labs to improve 2) GI symptoms to resolve 3) diet to advance 4) f/u in 3-5 days CC Plasma Assessment Blood Product Administration S: [id number] EDEL HUANG MD Jan 24, 2025 12:34
--- NOTE | 2025-01-24 16:02 | DVHPN2 ---
Progress Note - Dictate Date Seen: Jan 24, 2025 Has the PT tested + for MRSA If YES, has PT been informed?: No Medical Necessity Reason Pt with a Central, PICC or Fol: Yes The following are medically ne: Central Line, Torres Catheter Subjective 38 F with severe anemia, fibroids, chronic liver disease, CKD admitted for abdominal pain, had liver bx, started on HD per renal. Asymptomatic however MAP goes below 60. OOBTC, c/w midodrine and steroids pressors restarted No new complaints, patient is awake and alert She does admit to relapsing to drinking prior to this admission Bilirubin is down to 10.5 today Patient is able to tolerate diet and denies any significant abdominal pain vital signs Vital Sign Date Time Temp Pulse Resp B/P (MAP) Pulse Ox O2 Delivery O2 Flow Rate FiO2 01/24/25 15:39 69 01/24/25 15:30 17 106/58 (74) 94 01/24/25 08:00 98.6 98.6 01/24/25 07:35 Room Air* 0 21 Total Intake and Output 01/23/25 01/23/25 01/24/25 15:00 23:00 07:00 Intake Total 209.376 ml 867 ml 436 ml Output Total 100 ml 100 ml Balance 209.376 ml 767 ml 336 ml medications Current Medications Medications Dose Ordered Sig/Bárbara Route Start Time Stop Time Status Last Admin Dose Admin Ondansetron HCl 4 mg Q4HP PRN IV 01/07/25 17:15 01/07/25 19:24 4 MG Docusate Sodium 100 mg BIDPRN PRN PO 01/07/25 17:15 Nitroglycerin 0.4 mg Q5MINP PRN SL 01/07/25 17:15 Pantoprazole Sodium 40 mg BID IV 01/08/25 22:00 01/24/25 08:00 40 MG Metolazone 15 mg DAILY PO 01/11/25 11:00 01/24/25 08:01 15 MG Trazodone HCl 50 mg HS PO 01/12/25 22:00 01/23/25 21:51 50 MG Folic Acid 1 mg DAILY PO 01/12/25 10:00 01/24/25 08:02 1 MG Ciprofloxacin 200 ml @ 200 mls/hr DAILY IV 01/13/25 10:00 01/24/25 08:00 200 MLS/HR Midodrine 15 mg TID@0600,1200,1800 PO 01/13/25 18:00 01/24/25 11:53 15 MG Epoetin Gilbert-epbx 10,000 unit TUTHSA@2100 SC 01/16/25 21:00 01/23/25 21:51 10,000 UNIT Ursodiol 300 mg BID PO 01/16/25 22:00 01/24/25 08:01 300 MG Thiamine HCl 100 mg DAILY PO 01/19/25 10:00 01/24/25 08:01 100 MG Enteral Nutritional Formula 240 ml BID PO 01/19/25 10:00 01/24/25 08:02 240 ML Nystatin 1 applic BID TOP 01/19/25 10:30 01/24/25 08:02 1 APPLIC Albumin Human 100 ml @ 100 mls/hr PRN PRN IV 01/20/25 10:30 01/20/25 11:40 100 MLS/HR Lactulose 30 ml BID PO 01/21/25 22:00 01/24/25 08:00 30 ML Prednisone 20 mg DAILY PO 01/22/25 10:00 01/24/25 08:01 20 MG Norepinephrine Bitartrate 250 ml @ 0.938 mls/ hr Q24H IV 01/22/25 16:00 01/22/25 16:51 1.875 MLS/HR Octreotide Acetate 100 mcg BID SUBCUT 01/23/25 22:00 01/24/25 08:01 100 MCG Bumetanide 2 mg BIDD PO 01/23/25 18:00 01/24/25 05:34 2 MG Hydrocortisone 30 mg DAILY PO 01/23/25 17:15 01/24/25 08:01 30 MG objective General: Morbidly obese,, afebrile, palor, scleral icterus, Cardiovascular: Tachycardic but regular S1 and S2. No murmurs, gallops or rubs. No JVD elevation. Slightly resolving 2+ pedal pitting edema bilaterally Respiratory: Bilateral decreased air entry heard on auscultation, on RA Abdomen: Soft, distended, tender hypoactive bowel sounds, no rebound tenderness, no organomegaly, no masses Genitourinary: Deferred MSK/skin: Mobilizes 4 limbs. Skin is dry and warm Neurological: No motor, no sensitive deficits, normal speech. Pupils are isocoric and reactive. Psych/Mental Status: A/Ox3 laboratory and microbiology Laboratory Tests 01/24/25 05:30 Test 01/24/25 05:30 Range/Units Serum Glucose 149 H 74-106 mg/dL Problems(with codes): (1) Elevated CA-125 (2) Thrombocytopenia (3) Jaundice (4) Alcoholic hepatitis (5) Severe anemia (6) Generalized weakness Prognosis Plan Patient is clinically improving She is off the Levophed and downgraded to tele Prednisone has been downgraded to 20 mg p.o. daily Patient could possibly be referred as an outpatient to higher level of care for OBGYN malignancy Patient has been counseled strongly to discontinue alcohol and had regenerate her liver so she may proceed with further applier workup and surgery if required Dietary Evaluation Review Comments: 1) Continue thiamin supplementation. Consider adding folic acid and multivitamin. 2) Encourage optimal PO intake 3) Advance to 2g Na 80g hepatic diet when medically feasible 4) Refer to outpatient RD for weight management 5) Follow-up with hepatology, gastroenterology, and nephrology 6) Follow-up with criminal justice social worker r/t ETOH dependency 7) Continue to monitor I&O, labs, and skin integrity Expected Outcomes/Goals: 1) appetite and labs to improve 2) GI symptoms to resolve 3) diet to advance 4) f/u in 3-5 days Plan discussed with: Patient CC Plasma Assessment Blood Product Administration S: [id number] CYNTHIA NAZARIO MD Jan 24, 2025 16:02
[2025-01-25] VITALS (41 sets, daily range): BP systolic 83–118; BP diastolic 29–90; PULSE 58–82; RESP 10–31; TEMP 97.2–98.2; O2SAT 81–97
[2025-01-25] MEDS: SODIUM CHL 0.9% 1000 ML BAG XX ONE (08:45)
--- NOTE | 2025-01-25 10:31 | DVHPN2 ---
Progress Note Date Seen: Jan 25, 2025 Has the PT tested + for MRSA If YES, has PT been informed?: No Medical Necessity Reason Pt with a Central, PICC or Fol: Yes The following are medically ne: Central Line, Torres Catheter Subjective Patient reports: No new complaints Objective vital signs Vital Sign Date Time Temp Pulse Resp B/P (MAP) Pulse Ox O2 Delivery O2 Flow Rate FiO2 01/25/25 09:42 75 01/25/25 08:00 14 96 Room Air* 0 21 01/25/25 08:00 96/51 (66) 01/25/25 05:00 97.9 97.9 Total Intake and Output 01/24/25 01/24/25 01/25/25 15:00 23:00 07:00 Intake Total 600 ml 200 ml Output Total 250 ml 350 ml Balance 350 ml -150 ml medications Current Medications Medications Dose Ordered Sig/Bárbara Route Start Time Stop Time Status Last Admin Dose Admin Ondansetron HCl 4 mg Q4HP PRN IV 01/07/25 17:15 01/07/25 19:24 4 MG Docusate Sodium 100 mg BIDPRN PRN PO 01/07/25 17:15 Nitroglycerin 0.4 mg Q5MINP PRN SL 01/07/25 17:15 Pantoprazole Sodium 40 mg BID IV 01/08/25 22:00 01/25/25 07:45 40 MG Metolazone 15 mg DAILY PO 01/11/25 11:00 01/25/25 07:46 15 MG Trazodone HCl 50 mg HS PO 01/12/25 22:00 01/24/25 21:53 50 MG Folic Acid 1 mg DAILY PO 01/12/25 10:00 01/25/25 07:45 1 MG Ciprofloxacin 200 ml @ 200 mls/hr DAILY IV 01/13/25 10:00 01/25/25 07:44 200 MLS/HR Midodrine 15 mg TID@0600,1200,1800 PO 01/13/25 18:00 01/25/25 06:08 15 MG Epoetin Gilbert-epbx 10,000 unit TUTHSA@2100 SC 01/16/25 21:00 01/23/25 21:51 10,000 UNIT Ursodiol 300 mg BID PO 01/16/25 22:00 01/25/25 07:45 300 MG Thiamine HCl 100 mg DAILY PO 01/19/25 10:00 01/25/25 07:46 100 MG Enteral Nutritional Formula 240 ml BID PO 01/19/25 10:00 01/25/25 07:47 240 ML Nystatin 1 applic BID TOP 01/19/25 10:30 01/25/25 07:47 1 APPLIC Albumin Human 100 ml @ 100 mls/hr PRN PRN IV 01/20/25 10:30 01/25/25 09:37 100 MLS/HR Lactulose 30 ml BID PO 01/21/25 22:00 01/25/25 07:45 30 ML Prednisone 20 mg DAILY PO 01/22/25 10:00 01/25/25 07:46 20 MG Norepinephrine Bitartrate 250 ml @ 0.938 mls/ hr Q24H IV 01/22/25 16:00 01/22/25 16:51 1.875 MLS/HR Octreotide Acetate 100 mcg BID SUBCUT 01/23/25 22:00 01/25/25 07:47 100 MCG Bumetanide 2 mg BIDD PO 01/23/25 18:00 01/25/25 06:08 2 MG Hydrocortisone 30 mg DAILY PO 01/23/25 17:15 01/25/25 07:46 30 MG Examination: GENERAL:Abnormal, SKIN:Abnormal laboratory and microbiology Laboratory Tests 01/24/25 05:30 Test 01/24/25 05:30 Range/Units Serum Glucose 149 H 74-106 mg/dL Microbiology Date/Time Source Procedure Growth Status 01/21/25 09:45 Blood Blood Culture - Preliminary NO GROWTH AFTER 72 HOURS OF INCUBATION. Resulted 01/11/25 00:20 Nose MRSA Screen - Final Complete 01/08/25 15:00 Ascities Fluid Gram Stain - Final Complete 01/08/25 15:00 Ascities Fluid Body Fluid Culture - Final Complete Problem List/Assessment/Plan Problem List/Assessment/Plan 39 year female PMH etoh abuse p/w weakness Acute kidney injury hepatorenal syndrome vs hemodynamic ckd II etoh cirrhosis, liver masses, jaundice severe anasarca and ascites anemia due to liver disease hyponatremia due to volume overload thrombocytopenia severe anasarca starting to improve HD today, no heparin tolerated 3.5L removal using a UF profile PRN PRBC to keep hb > 8.0 diuretics- bumex and metolazone epogen 3x a week monitor UOP fluid restriction midodrine po to keep map> 65 levophed keep MAP > 65 poor overall prognosis Plan discussed with: Patient My Orders My Orders Orders - EDMOND MAS MD Procedure Category Date Status Time Hemodialysis Orders ORDERS 01/25/25 Transmitted 08:41 Dialysis Nursing RAFAEL 01/25/25 In Process Message 08:41 Document Fluid Input RAFAEL 01/25/25 In Process And Outpu 08:41 Dietary Evaluation Review Comments: 1) Continue thiamin supplementation. Consider adding folic acid and multivitamin. 2) Encourage optimal PO intake 3) Advance to 2g Na 80g hepatic diet when medically feasible 4) Refer to outpatient RD for weight management 5) Follow-up with hepatology, gastroenterology, and nephrology 6) Follow-up with social sciences research scientist r/t ETOH dependency 7) Continue to monitor I&O, labs, and skin integrity Expected Outcomes/Goals: 1) appetite and labs to improve 2) GI symptoms to resolve 3) diet to advance 4) f/u in 3-5 days Critical Care Time (mins): 33 CC Plasma Assessment Blood Product Administration S: [id number] EDMOND MAS MD Jan 25, 2025 10:31
[2025-01-25 14:15] LABS: Hematocrit 23.4 % (36.0-46.0)
[2025-01-25 14:17] LABS: Mean Corpuscular Hemoglobin 28.8 pg (28.0-32.0); Mean Corpuscular Volume 88.8 fL (80.0-100.0); Nucleated Red Blood Cells % 0.0 %
[2025-01-25 14:18] LABS: Chloride 99 mmol/L (98-107); Potassium 4.2 mmol/L (3.5-5.1); Sodium 141 mmol/L (136-145)
[2025-01-25 14:19] LABS: Anion Gap 15 (5-15); Calcium 9.7 mg/dL (8.7-10.4); Carbon Dioxide 27 mmol/L (20-31)
[2025-01-25 14:20] LABS: Hemoglobin 7.6 g/dL (12.2-16.2)
[2025-01-25 14:24] LABS: BUN/Creatinine Ratio 10.2 (10.0-20.0)
[2025-01-25 14:25] LABS: Magnesium 2.0 mg/dL (1.6-2.6)
[2025-01-25 14:28] LABS: Glucose 147 mg/dL (74-106)
[2025-01-25 14:29] LABS: Blood Urea Nitrogen 40 mg/dL (9-23)
[2025-01-25] MEDS ORDERED: [UNRECOGNIZED DRUG - CODE] SC (17:04)
[2025-01-25] MEDS ORDERED: PRED10TA PO (17:04)
[2025-01-25] MEDS ORDERED: PRED20TA2 PO (17:04)
[2025-01-25] MEDS ORDERED: MID10T PO (17:07)
[2025-01-25] MEDS ORDERED: FOLI-119 PO (17:07)
[2025-01-25] MEDS ORDERED: FURO1TAB33 PO (17:07)
[2025-01-25] MEDS ORDERED: LACT10SO3 PO (17:07)
[2025-01-25] MEDS ORDERED: FER325T PO (17:07)
[2025-01-25] MEDS ORDERED: BUM1T PO (17:07)
[2025-01-25] MEDS ORDERED: THIA100T10 PO (17:07)
[2025-01-25] MEDS ORDERED: TRAZ-227 PO (17:07)
[2025-01-25] MEDS ORDERED: [UNRECOGNIZED DRUG - CODE] PO (17:07)
[2025-01-25] MEDS ORDERED: METO5TAB5 PO (17:07)
[2025-01-25] MEDS ORDERED: NYS15PW TOP (17:07)
[2025-01-25] MEDS ORDERED: URSO300C2 PO (17:07)
[2025-01-25] MEDS ORDERED: CHOL500021 OR (17:07)
--- NOTE | 2025-01-25 17:53 | DVHPN2 ---
Progress Note Date Seen: Jan 25, 2025 Resident Creating Document: MILE LORA RESIDENT Has the PT tested + for MRSA If YES, has PT been informed?: No Medical Necessity Reason Pt with a Central, PICC or Fol: Yes The following are medically ne: Central Line, Torres Catheter Subjective Review of Systems TODAY'S PROGRESS The patient remains clinically stable. Hemoglobin is stable at 7.1 unchanged from yesterday, WBC count improving to 16.6, down from 18.5 yesterday. No new bleeding episodes reported. Abdominal pain minimal, and patient is tolerating current management. The patient was downgraded to telemetry level of care today after improvement in hemodynamic stability. The patient will get 1 dose of IV albumin before discharge tomorrow. As the patient is being planned to be discharged tomorrow with the detailed medication taper plan and follow-up strategy. Patient is being transferred and referred to a higher level of care for OBGYN Oncology evaluation given the elevated tumor markers CA 125 and adnexal mass. GI services we will also follow up the patient on outpatient for ongoing management of cirrhosis and ascites. Objective vital signs Vital Sign Date Time Temp Pulse Resp B/P (MAP) Pulse Ox O2 Delivery O2 Flow Rate FiO2 01/25/25 17:45 71 01/25/25 17:21 103/55 01/25/25 17:00 31 95 01/25/25 16:00 97.9 97.9 01/25/25 08:00 Room Air* 0 21 Total Intake and Output 01/24/25 01/24/25 01/25/25 15:00 23:00 07:00 Intake Total 600 ml 200 ml Output Total 250 ml 350 ml Balance 350 ml -150 ml medications Current Medications Medications Dose Ordered Sig/Bárbara Route Start Time Stop Time Status Last Admin Dose Admin Ondansetron HCl 4 mg Q4HP PRN IV 01/07/25 17:15 01/07/25 19:24 4 MG Docusate Sodium 100 mg BIDPRN PRN PO 01/07/25 17:15 Nitroglycerin 0.4 mg Q5MINP PRN SL 01/07/25 17:15 Pantoprazole Sodium 40 mg BID IV 01/08/25 22:00 01/25/25 07:45 40 MG Metolazone 15 mg DAILY PO 01/11/25 11:00 01/25/25 07:46 15 MG Trazodone HCl 50 mg HS PO 01/12/25 22:00 01/24/25 21:53 50 MG Folic Acid 1 mg DAILY PO 01/12/25 10:00 01/25/25 07:45 1 MG Ciprofloxacin 200 ml @ 200 mls/hr DAILY IV 01/13/25 10:00 01/25/25 07:44 200 MLS/HR Midodrine 15 mg TID@0600,1200,1800 PO 01/13/25 18:00 01/25/25 17:21 15 MG Epoetin Gilbert-epbx 10,000 unit TUTHSA@2100 SC 01/16/25 21:00 01/23/25 21:51 10,000 UNIT Ursodiol 300 mg BID PO 01/16/25 22:00 01/25/25 07:45 300 MG Thiamine HCl 100 mg DAILY PO 01/19/25 10:00 01/25/25 07:46 100 MG Enteral Nutritional Formula 240 ml BID PO 01/19/25 10:00 01/25/25 07:47 240 ML Nystatin 1 applic BID TOP 01/19/25 10:30 01/25/25 07:47 1 APPLIC Albumin Human 100 ml @ 100 mls/hr PRN PRN IV 01/20/25 10:30 01/25/25 10:44 100 MLS/HR Lactulose 30 ml BID PO 01/21/25 22:00 01/25/25 07:45 30 ML Prednisone 20 mg DAILY PO 01/22/25 10:00 01/25/25 07:46 20 MG Norepinephrine Bitartrate 250 ml @ 0.938 mls/ hr Q24H IV 01/22/25 16:00 01/22/25 16:51 1.875 MLS/HR Octreotide Acetate 100 mcg BID SUBCUT 01/23/25 22:00 01/25/25 07:47 100 MCG Bumetanide 2 mg BIDD PO 01/23/25 18:00 01/25/25 17:21 2 MG Hydrocortisone 30 mg DAILY PO 01/23/25 17:15 01/25/25 07:46 30 MG Examination General: Chronically ill-appearing, jaundiced, on vasopressor support. * Abdomen: Mild distention with ascites; soft, non-tender; no guarding or rebound. * Skin: Jaundice present; no spider angiomas noted. * Neuro: Alert, oriented 3; no asterixis laboratory and microbiology Laboratory Tests 01/25/25 14:00 Test 01/25/25 14:00 Range/Units Serum Glucose 147 H 74-106 mg/dL Microbiology Date/Time Source Procedure Growth Status 01/21/25 09:45 Blood Blood Culture - Preliminary NO GROWTH AFTER 72 HOURS OF INCUBATION. Resulted 01/11/25 00:20 Nose MRSA Screen - Final Complete 01/08/25 15:00 Ascities Fluid Gram Stain - Final Complete 01/08/25 15:00 Ascities Fluid Body Fluid Culture - Final Complete Problem List/Assessment/Plan Problem List/Assessment/Plan Assessment 1. Decompensated alcoholic cirrhosis with severe ascites, coagulopathy, and hyperbilirubinemia (MELD ~35)., Maddrey DF score is 40.4 which is poor prognosis/ONGOING IV CORTICOSTEROIDS 2. Multiple hepatic lesions,. 3. Hepatorenal syndrome ongoing HD. 4. Severe ascites and anasarca improving with HD and paracentesis. 5. Acute on chronic GI bleed (melena) positive stool occult blood, anemia requiring transfusion. 6. Severe anemia secondary to chronic liver disease and GI bleeding./anemia of chronic disease/hemoglobin stable at 8.0 7. Pelvic mass (fibroid vs endometrioma) needs [employer]-oncology follow-up. 8. Severe malnutrition on clear liquids, receiving high-protein oral supplementation. 9. Coagulopathy of liver disease/elevated INR PT and APTT/given vitamin K IV once/monitor for bleeding 10. Right adnexal mass 5 cm, heterogeneous with vascularities-highly suspicious for neoplasm, requires higher level OBGYN Oncology evaluate Plan Gastrointestinal / Hepatic We will follow up the patient on outpatient basis for further evaluation and management of cirrhosis and end-stage liver disease OBGYN recommendation-transfer to higher level of care for gynecological oncology evaluation given adnexal mass. Steroid taper as planned- Prednisolone p.o. 20 mg daily into 2 weeks. Continue octreotide SQ Hydrocortisone 30 mg daily for 1 week next 20 mg daily for 2 weeks next 10 mg daily into 2 weeks. Add ursodiol 300 mg p.o. twice a day Hypotension likely due to underlying chronic liver disease Monitor labs Await liver biopsy results hopefully we should have report by next week * Continue monitoring post-liver biopsy for bleeding. * Discontinue octerotide * Maintain Pantoprazole IV BID for GI bleed prophylaxis. * Avoid hepatotoxic medications and opioids (alphonso. morphine). * Use non-opioid analgesics for RUQ pain. Continue lactulose 30 mL * Plan for EGD and colonoscopy once hemodynamically stable to evaluate varices and rule out colorectal malignancy. * Continue SBP prophylaxis with IV ciprofloxacin daily. * Monitor LFTs, INR, CBC daily. OBGYN consult for fell pelvic mass, CA 125 correlation Ascites Reinforce RLQ site dressing, monitor for infection signs. * Continue fluid and sodium restriction. * Continue triple diuretics (Tolvaptan, Bumetanide, Metolazone) per nephrology. * Monitor paracentesis site for infection; apply dressing. * Repeat paracentesis PRN for recurrent tense ascites. Nutrition * Continue soft diet; advance as tolerated. * Monitor intake and weight daily. * Consider nutrition consult and TPN if oral intake insufficient. Oncology * Early oncology consult once biopsy results available. * Evaluate for possible metastatic colorectal cancer vs HCC. Hematology * PRBC transfusion PRN to maintain Hgb >8.0. * Continue Epoetin Gilbert-epbx SC protocol. * Monitor platelets, INR daily. Infectious Disease * Continue IV antibiotics (ciprofloxacin) for SBP prophylaxis. * Monitor cultures. Case discussed in detail with the attending physician, including the clinical presentation, diagnostic workup, and comprehensive management plan. The patient was present for the discussion and demonstrated understanding of her condition and the proposed plan. Plan discussed with: Patient Dietary Evaluation Review Comments: 1) Continue thiamin supplementation. Consider adding folic acid and multivitamin. 2) Encourage optimal PO intake 3) Advance to 2g Na 80g hepatic diet when medically feasible 4) Refer to outpatient RD for weight management 5) Follow-up with hepatology, gastroenterology, and nephrology 6) Follow-up with social sciences research scientist r/t ETOH dependency 7) Continue to monitor I&O, labs, and skin integrity Expected Outcomes/Goals: 1) appetite and labs to improve 2) GI symptoms to resolve 3) diet to advance 4) f/u in 3-5 days CC Plasma Assessment Blood Product Administration S: [id number] MILE LORA RESIDENT Jan 25, 2025 17:53
[2025-01-25] MEDS ORDERED: HYDR10T OR (18:07)
--- NOTE | 2025-01-25 18:22 | DVHPNRES ---
Progress Note Date Seen: Jan 25, 2025 Resident Creating Document: BRENDA HITCHCOCK RESIDENT Has the PT tested + for MRSA If YES, has PT been informed?: No Medical Necessity Reason Pt with a Central, PICC or Fol: Yes The following are medically ne: Central Line, Torres Catheter Subjective Review of Systems Patient is a 38-year-old female with past medical history of chronic severe anemia which required blood transfusions via before in June on August, uterine fibroids, chronic liver ascites who came to the ED with chief complaint of severe diffuse abdominal pain 8/ in intensity, which radiates to the back, gradual increase in shortness of breath, and nausea since the past week. She complained of severe bloating and abdominal swelling since last Saturday, dry mouth, dry cough, dizziness, and bilateral leg pain due to edema. but he denies any hematemesis, headaches, diarrhea, dysuria, hematuria, but she complains her stool is darker than usual. Patient was supposed to follow-up with OBGYN for possible hysterectomy but did not. She states that she had no prior diagnosis of cirrhosis but was told during her June 2024 admission that she had liver and kidney damage. 01/11 - Patient seen and examined at the bedside. Reports feeling weak, IR placed tunneled catheter for dialysis. Dopamine started, patient did not tolerate, HR into 160s, decreased with vagal maneuvers. Discontinue dopamine. Continue diuresis. Radiologist consulted for liver biopsy. 01/12 - patient seen and examined, underwent HD last night 2.4 L taken out, underwent hemodialysis today, 2 L taken off. Patient is requiring Levophed during hemodialysis. Pending liver biopsy. 01/13 - patient underwent hemodialysis this morning. Midodrine increased to 15 mg TID. Right tunneled catheter intermittently bleeding, Dermabond in place. 01/14-patient seen and examined, right tunneled catheter clotted blood seen. Diet increased to soft diet. Echocardiogram ordered, Levophed 01/15 - patient underwent hemodialysis, 2.6 L taken out, started prednisone 40mg daily. 01/16 - patient seen and examined, weaned off IV pressors, GI decreased prednisone to 30 mg daily, ursodiol daily, MAP goal > 60. 01/18 - patient off pressors, underwent hemodialysis 01/17 01/19 -dc hydrocortisone. Liver biopsy shows steatohepatitis and cirrhosis, dysplasia can not be ruled out 01/20 - hemodialysis, patient requiring levophed 6, Had bowel movement, GI recommends MRI chest/abdomen/pelvis with contrast as outpatient. 01/21 - patient seen and examined, CT abdomen/pelvis with without IV count showed No liver masses are seen, There is some ascites present, Small gallstones without biliary dilatation, Effusion and consolidation in the left lung base Pelvic ultrasound showed 5 cm right adnexal heterogeneous mass with vascularity. MRI with IV contrast recommended. Levophed 2 mcg/minute 01/22 - On levophed 1, patient sitting in a chair, OBGYN recommends HLOC - for pelvic mass biopsy (5 cm right adnexal heterogeneous mass with vascularity, CA125: 527) and inpatient eval for possible metastaic cancer by assembler skylights oncology per RECREATION ACTIVITIES COORDINATOR. HD today 01/23 - patient seen and examined, patient stood up and ambulated with the help of physical therapist, off pressors. HLOC have been refused by multiple central. Objective vital signs Vital Sign Date Time Temp Pulse Resp B/P (MAP) Pulse Ox O2 Delivery O2 Flow Rate FiO2 01/25/25 18:00 71 15 101/51 (68) 95 01/25/25 16:00 97.9 97.9 01/25/25 08:00 Room Air* 0 21 Total Intake and Output 01/24/25 01/24/25 01/25/25 15:00 23:00 07:00 Intake Total 600 ml 200 ml Output Total 250 ml 350 ml Balance 350 ml -150 ml medications Current Medications Medications Dose Ordered Sig/Bárbara Route Start Time Stop Time Status Last Admin Dose Admin Ondansetron HCl 4 mg Q4HP PRN IV 01/07/25 17:15 01/07/25 19:24 4 MG Docusate Sodium 100 mg BIDPRN PRN PO 01/07/25 17:15 Nitroglycerin 0.4 mg Q5MINP PRN SL 01/07/25 17:15 Pantoprazole Sodium 40 mg BID IV 01/08/25 22:00 01/25/25 07:45 40 MG Metolazone 15 mg DAILY PO 01/11/25 11:00 01/25/25 07:46 15 MG Trazodone HCl 50 mg HS PO 01/12/25 22:00 01/24/25 21:53 50 MG Folic Acid 1 mg DAILY PO 01/12/25 10:00 01/25/25 07:45 1 MG Ciprofloxacin 200 ml @ 200 mls/hr DAILY IV 01/13/25 10:00 01/25/25 07:44 200 MLS/HR Midodrine 15 mg TID@0600,1200,1800 PO 01/13/25 18:00 01/25/25 17:21 15 MG Epoetin Gilbert-epbx 10,000 unit TUTHSA@2100 SC 01/16/25 21:00 01/23/25 21:51 10,000 UNIT Ursodiol 300 mg BID PO 01/16/25 22:00 01/25/25 07:45 300 MG Thiamine HCl 100 mg DAILY PO 01/19/25 10:00 01/25/25 07:46 100 MG Enteral Nutritional Formula 240 ml BID PO 01/19/25 10:00 01/25/25 07:47 240 ML Nystatin 1 applic BID TOP 01/19/25 10:30 01/25/25 07:47 1 APPLIC Albumin Human 100 ml @ 100 mls/hr PRN PRN IV 01/20/25 10:30 01/25/25 10:44 100 MLS/HR Lactulose 30 ml BID PO 01/21/25 22:00 01/25/25 07:45 30 ML Prednisone 20 mg DAILY PO 01/22/25 10:00 01/25/25 07:46 20 MG Norepinephrine Bitartrate 250 ml @ 0.938 mls/ hr Q24H IV 01/22/25 16:00 01/22/25 16:51 1.875 MLS/HR Octreotide Acetate 100 mcg BID SUBCUT 01/23/25 22:00 01/25/25 07:47 100 MCG Bumetanide 2 mg BIDD PO 01/23/25 18:00 01/25/25 17:21 2 MG Hydrocortisone 30 mg DAILY PO 01/23/25 17:15 01/25/25 07:46 30 MG Examination Morbidly obese female patient lying in the bed, appears sick, right tunneled catheter General: Morbidly obese,, afebrile, palor, scleral icterus, Cardiovascular: Tachycardic but regular S1 and S2. No murmurs, gallops or rubs. No JVD elevation. resolving 2+ pedal pitting edema bilaterally Respiratory: Bilateral decreased air entry heard on auscultation, on RA Abdomen: Soft, distended, nontender normoactive bowel sounds, no rebound tenderness, no organomegaly, no masses Genitourinary: Deferred, Torres catheter seen draining urine MSK/skin: Mobilizes 4 limbs. Skin is dry and warm Neurological: No motor, no sensitive deficits, normal speech. Pupils are isocoric and reactive. Psych/Mental Status: A/Ox3 laboratory and microbiology Laboratory Tests 01/25/25 14:00 Test 01/25/25 14:00 Range/Units Serum Glucose 147 H 74-106 mg/dL Microbiology Date/Time Source Procedure Growth Status 01/21/25 09:45 Blood Blood Culture - Preliminary NO GROWTH AFTER 72 HOURS OF INCUBATION. Resulted 01/11/25 00:20 Nose MRSA Screen - Final Complete 01/08/25 15:00 Ascities Fluid Gram Stain - Final Complete 01/08/25 15:00 Ascities Fluid Body Fluid Culture - Final Complete Labs and/or images reviewed: Labs reviewed by me, Image(s) reviewed by me Problem List/Assessment/Plan Problem List/Assessment/Plan Generalized weakness secondary to acute blood loss anemia ? Upper GI bleed, esophageal varices Hypotension requiring pressor Possible metastatic liver disease - primary unknown (possible ovarian mass) s/p liver biopsy 01/12 Acute on chronic decompensated liver failure - meld score 35->32 - MDF - 40.9- >29.8 , [place] model 0.010 ?SBP Chronic alcohol dependence Alcoholic withdrawal - CIWA less than 8 Discontinued IV octreotide drip IV pantoprazole b.i.d. GI consultation - DC IV Solu-Medrol 40 mg daily, DC octreotide, continue prednisone IR consulted - liver biopsy 01/12, Liver biopsy shows steatohepatitis and cirrhosis, dysplasia can not be ruled out 01/21-CT abdomen/pelvis with without IV count showed No liver masses are seen, There is some ascites present, Small gallstones without biliary dilatation, Effusion and consolidation in the left lung base IV Levaquin switch to IV Cipro Midodrine 15 mg TID Completed hydrocortisone 50 mg q.6 hours 01/14 to 01/18 prednisone decreased to 20 from 30 mg daily, ursodiol daily, started hydrocortisone 20 mg daily Off pressors Beta Whit cant be given given possible variceal bleed MDF/Meld decreasing Acute Kidney Injury likely hepatorenal syndrome vs. pre-renal azotemia -FENA 0.3% requiring hemodialysis hypervolemic hypotonic hyponatremia possibly secondary to cirrhosis Anion gap metabolic acidosis secondary to lactic acid Oliguria nephrology consulted - IV Bumex 2 mg q.6 hourly, metolazone, HD 01/11, 01/12, 01/13, 01/15, 01/17, 01/20, 01/22 Radiology placed tunneled catheter today 01/11 Patient did not tolerate dopamine, heart rate into 160s Discontinued Tolvaptan 30 mg daily Pelvic mass ? Mass versus fibroid Abnormal uterine bleeding OBGYN consultation -[facility] for assembler skylights onc MRI showed 4.9 cm T2 hypointense structure in the posterior right hemipelvis. This may represent an exophytic fibroid versus possible endometrioma. CA 125 elevated # Gallstones , cholelithiasis- outpatient follow-up # History of miscarriage SCDs Renal diet R tunn cath 01/11 Drips: Levophed off Avoid morphine Plan discussed with patient, at bedside in which all questions have been answered Goals of care discussed with the patient for more than 20 minutes, full code status Case discussed with Dr. Interiano Plan discussed with: Patient, Spouse (At bedside) My Orders My Orders Orders - BRENDA HITCHCOCK Procedure Category Date Status Time Communication Order ORDERS 01/25/25 Transmitted 17:07 Dietary Evaluation Review Comments: 1) Continue thiamin supplementation. Consider adding folic acid and multivitamin. 2) Encourage optimal PO intake 3) Advance to 2g Na 80g hepatic diet when medically feasible 4) Refer to outpatient RD for weight management 5) Follow-up with hepatology, gastroenterology, and nephrology 6) Follow-up with criminal justice social worker r/t ETOH dependency 7) Continue to monitor I&O, labs, and skin integrity Expected Outcomes/Goals: 1) appetite and labs to improve 2) GI symptoms to resolve 3) diet to advance 4) f/u in 3-5 days CC Plasma Assessment Blood Product Administration S: [id number] Date of Service: Jan 25, 2025 Billing Provider: GONZALO GREGORY MD Common Visit Codes: [id number] INP/OBS CARE(HIGH) BRENDA HITCHCOCK Jan 25, 2025 18:22 GONZALO GREGORY MD Jan 27, 2025 00:31
[2025-01-26] VITALS (34 sets, daily range): BP systolic 81–114; BP diastolic 35–64; PULSE 65–83; RESP 9–29; TEMP 97.1–97.8; O2SAT 87–100
[2025-01-26 06:01] LABS: Hematocrit 21.6 % (36.0-46.0); Hemoglobin 7.2 g/dL (12.2-16.2); Nucleated Red Blood Cells % 0.1 %
[2025-01-26 06:05] LABS: Mean Corpuscular Hemoglobin 29.4 pg (28.0-32.0); Mean Corpuscular Volume 88.3 fL (80.0-100.0)
[2025-01-26 06:13] LABS: Albumin 3.9 g/dL (3.2-4.8); Alkaline Phosphatase 71 U/L (46-116); Anion Gap 14 (5-15); BUN/Creatinine Ratio 14.3 (10.0-20.0); Calcium 9.3 mg/dL (8.7-10.4); Carbon Dioxide 28 mmol/L (20-31); Potassium 4.6 mmol/L (3.5-5.1); Sodium 139 mmol/L (136-145); Total Protein 6.9 g/dL (5.7-8.2)
[2025-01-26 06:15] LABS: Alanine Aminotransferase 44 U/L (7-40); Bilirubin, Total 6.4 mg/dL (0.2-1.0); Blood Urea Nitrogen 72 mg/dL (9-23); Chloride 97 mmol/L (98-107); Glucose 129 mg/dL (74-106)
[2025-01-26 06:50] LABS: Anisocytosis Moderate
--- NOTE | 2025-01-26 10:19 | DVHPN2 ---
Progress Note Date Seen: Jan 26, 2025 Has the PT tested + for MRSA If YES, has PT been informed?: No Medical Necessity Reason Pt with a Central, PICC or Fol: Yes The following are medically ne: Central Line, George Catheter Subjective Patient reports: No new complaints Changes from previous H/P or p: No Changes Objective vital signs Vital Sign Date Time Temp Pulse Resp B/P (MAP) Pulse Ox O2 Delivery O2 Flow Rate FiO2 01/26/25 06:30 74 14 93/46 (62) 95 01/26/25 04:00 97.6 97.6 01/25/25 20:00 Room Air* 0 21 Total Intake and Output 01/25/25 01/25/25 01/26/25 14:59 22:59 06:59 Intake Total 700 ml Output Total 125 ml 250 ml Balance 575 ml -250 ml medications Current Medications Medications Dose Ordered Sig/Bárbara Route Start Time Stop Time Status Last Admin Dose Admin Ondansetron HCl 4 mg Q4HP PRN IV 01/07/25 17:15 01/07/25 19:24 4 MG Docusate Sodium 100 mg BIDPRN PRN PO 01/07/25 17:15 Nitroglycerin 0.4 mg Q5MINP PRN SL 01/07/25 17:15 Pantoprazole Sodium 40 mg BID IV 01/08/25 22:00 01/26/25 08:43 40 MG Metolazone 15 mg DAILY PO 01/11/25 11:00 01/25/25 07:46 15 MG Trazodone HCl 50 mg HS PO 01/12/25 22:00 01/25/25 21:13 50 MG Folic Acid 1 mg DAILY PO 01/12/25 10:00 01/26/25 08:46 1 MG Ciprofloxacin 200 ml @ 200 mls/hr DAILY IV 01/13/25 10:00 01/25/25 07:44 200 MLS/HR Midodrine 15 mg TID@0600,1200,1800 PO 01/13/25 18:00 01/26/25 05:18 15 MG Epoetin Gilbert-epbx 10,000 unit TUTHSA@2100 SC 01/16/25 21:00 01/23/25 21:51 10,000 UNIT Ursodiol 300 mg BID PO 01/16/25 22:00 01/26/25 08:47 300 MG Thiamine HCl 100 mg DAILY PO 01/19/25 10:00 01/26/25 08:47 100 MG Enteral Nutritional Formula 240 ml BID PO 01/19/25 10:00 01/26/25 10:05 240 ML Nystatin 1 applic BID TOP 01/19/25 10:30 01/26/25 10:06 1 APPLIC Albumin Human 100 ml @ 100 mls/hr PRN PRN IV 01/20/25 10:30 01/25/25 10:44 100 MLS/HR Lactulose 30 ml BID PO 01/21/25 22:00 01/26/25 08:47 30 ML Prednisone 20 mg DAILY PO 01/22/25 10:00 01/26/25 08:47 20 MG Norepinephrine Bitartrate 250 ml @ 0.938 mls/ hr Q24H IV 01/22/25 16:00 01/22/25 16:51 1.875 MLS/HR Octreotide Acetate 100 mcg BID SUBCUT 01/23/25 22:00 01/26/25 09:00 100 MCG Bumetanide 2 mg BIDD PO 01/23/25 18:00 01/26/25 05:19 2 MG Hydrocortisone 30 mg DAILY PO 01/23/25 17:15 01/26/25 08:43 30 MG Examination: GENERAL:Abnormal, CVS:Normal, SKIN:Abnormal laboratory and microbiology Laboratory Tests 01/26/25 05:03 Test 01/26/25 05:03 Range/Units Serum Glucose 129 H 74-106 mg/dL Microbiology Date/Time Source Procedure Growth Status 01/21/25 09:45 Blood Blood Culture - Final NO GROWTH AFTER 5 DAYS OF INCUBATION. Complete 01/11/25 00:20 Nose MRSA Screen - Final Complete 01/08/25 15:00 Ascities Fluid Gram Stain - Final Complete 01/08/25 15:00 Ascities Fluid Body Fluid Culture - Final Complete Problem List/Assessment/Plan Problem List/Assessment/Plan 39 year female PMH etoh abuse p/w weakness Acute kidney injury hepatorenal syndrome ckd II etoh cirrhosis, liver masses, jaundice severe anasarca and ascites anemia due to liver disease hyponatremia due to volume overload thrombocytopenia anasarca starting to improve HD today, no heparin tolerated 3.5L removal using a UF profile PRN PRBC to keep hb > 8.0 diuretics- bumex and metolazone epogen 3x a week monitor UOP fluid restriction midodrine po Discontinue the george catheter Patient is scheduled for outpatient dialysis on Saturday and Saturday outpatient . We will continue outpatient assessment and renal function Plan discussed with: Patient Dietary Evaluation Review Comments: 1) Continue thiamin supplementation. Consider adding folic acid and multivitamin. 2) Encourage optimal PO intake 3) Advance to 2g Na 80g hepatic diet when medically feasible 4) Refer to outpatient RD for weight management 5) Follow-up with hepatology, gastroenterology, and nephrology 6) Follow-up with social worker assistant r/t ETOH dependency 7) Continue to monitor I&O, labs, and skin integrity Expected Outcomes/Goals: 1) appetite and labs to improve 2) GI symptoms to resolve 3) diet to advance 4) f/u in 3-5 days Total Time (mins): 40 CC Plasma Assessment Blood Product Administration S: [id number] EDMOND MAS MD Jan 26, 2025 10:19
[2025-01-26] MEDS: ALBUMIN 25% 100 ML IV ONE (12:56)
--- NOTE | 2025-01-26 16:06 | DVHDSRES ---
Discharge Summary Date of Admission Resident Creating Document: BRENDA HITCHCOCK RESIDENT Jan 07, 2025 at 17:03 Date of Discharge: Jan 26, 2025 Labs/Diagnostic Data: Laboratory Results Test 01/26/25 05:03 01/25/25 14:00 01/24/25 05:30 01/23/25 05:27 White Blood Count 19.1 10^3/uL (4.4-10.8) Red Blood Count 2.44 10^6/uL (4.0-5.20) Hemoglobin 7.2 g/dL (12.2-16.2) Hematocrit 21.6 % (36.0-46.0) Mean Corpuscular Volume 88.3 fL (80.0-100.0) Mean Corpuscular Hemoglobin 29.4 pg (28.0-32.0) Mean Corpuscular Hemoglobin Concent 33.3 g/dL (32.0-36.0) Red Cell Distribution Width 28.3 % (11.8-14.3) Platelet Count 87 10^3/uL (140-450) Mean Platelet Volume 9.4 fL (6.9-10.8) Neutrophils (%) (Auto) 87.8 % (37.0-80.0) Lymphocytes (%) (Auto) 5.1 % (10.0-50.0) Monocytes (%) (Auto) 6.6 % (0.0-12.0) Eosinophils (%) (Auto) 0.4 % (0.0-7.0) Basophils (%) (Auto) 0.1 % (0.0-2.0) Neutrophils # (Auto) 16.7 10 ^3/uL (1.6-8.6) Lymphocytes # (Auto) 1.0 10 ^3/uL (0.4-5.4) Monocytes # (Auto) 1.3 10 ^3/uL (0-1.3) Eosinophils # (Auto) 0.1 10 ^3/uL (0-0.8) Basophils # (Auto) 0 10 ^3/uL (0-0.2) Nucleated Red Blood Cells 0.1 % Platelet Estimate Decreased Anisocytosis (manual) Moderate Target Cells Moderate Schistocytes Few Sodium Level 139 mmol/L (136-145) Potassium Level 4.6 mmol/L (3.5-5.1) Chloride Level 97 mmol/L (98-107) Carbon Dioxide Level 28 mmol/L (20-31) Anion Gap 14 (5-15) Blood Urea Nitrogen 72 mg/dL (9-23) Creatinine 5.03 mg/dL (0.550-1.02) Glomerular Filtration Rate Calc 11 mL/min (>90) BUN/Creatinine Ratio 14.3 (10.0-20.0) Serum Glucose 129 mg/dL (74-106) Calcium Level 9.3 mg/dL (8.7-10.4) Total Bilirubin 6.4 mg/dL (0.2-1.0) Aspartate Amino Transferase (AST) 57 U/L (13-40) Alanine Aminotransferase (ALT) 44 U/L (7-40) Alkaline Phosphatase 71 U/L (46-116) Ammonia 49 umol/L (11-32) Total Protein 6.9 g/dL (5.7-8.2) Albumin 3.9 g/dL (3.2-4.8) Magnesium Level 2.0 mg/dL (1.6-2.6) [place] Cells Few Iron Level 47 ug/dL (50-170) Total Iron Binding Capacity 209 ug/dL (250-425) Percent Iron Saturation 22.5 % (15-50) Ferritin 64.8 ng/mL (10-291) Test 01/22/25 04:41 01/20/25 04:37 01/16/25 04:41 01/14/25 16:47 Prothrombin Time 15.7 sec (9.3-11.8) Prothrombin Time INR 1.55 (0.9-1.15) Activated Partial Thromboplast Time 33.4 SEC (24.5-34.5) Phosphorus Level 7.2 mg/dL (2.4-5.1) Differential Total Cells Counted 100.0 (100) Neutrophils % (Manual) 80 (37.0-80.0) Band Neutrophils % (Manual) 0 Lymphocytes % (Manual) 10 (10.0-50.0) Monocytes % (Manual) 10 (0-12) Eosinophils % (Manual) 0 (0-7) Basophils % (Manual) 0 (0.0-2.0) Metamyelocytes % (manual) 0 Myelocytes % (Manual) 0 Promyelocytes % (Manual) 0 Blast Cells % (Manual) 0 Reactive Lymphocytes 0 Anti-Nuclear Antibody Comment Comment (.) JESSE-1 Antibody <0.2 AI (0.0-0.9) SS-A/Ro Antibody <0.2 AI (0.0-0.9) SS-B/La Antibody <0.2 AI (0.0-0.9) Sm Antibody <0.2 AI (0.0-0.9) MODEL ARTISTS' Antibody <0.2 AI (0.0-0.9) Scl-70 (Scleroderma) Antibody <0.2 AI (0.0-0.9) Anti-Double Strand DNA Antibody <1 IU/mL (0-9) Chromatin Antibody <0.2 AI (0.0-0.9) Centromere B Antibody 0.3 AI (0.0-0.9) Complement C3 73 mg/dL (82-167) Complement C4 10 mg/dL (12-38) Test 01/14/25 11:29 01/14/25 05:05 01/12/25 04:41 01/12/25 00:28 Vitamin B12 Level 3299 pg/mL (211-911) Hepatitis C Antibody Negative (Negative) Ovalocytes Few Direct Bilirubin 7.9 mg/dL (<0.3) B-Type Natriuretic Peptide 850.42 pg/mL (0-100) Uric Acid 13.8 mg/dL (3.1-7.8) Lactic Acid Level 1.2 mmol/L (0.4-2.0) Test 01/11/25 23:16 01/11/25 10:55 01/11/25 09:37 01/11/25 09:30 Carcinoembryonic Antigen 8.82 ng/mL (<=5.0) CA 19-9 Antigen <2 U/mL (0-35) CA 125 Antigen 527.0 U/mL (0.0-38.1) Urine Osmolality 225 mOsm/kg Hepatitis B Surface Antigen Negative (Negative) Lactate Dehydrogenase 161 U/L (120-246) Test 01/09/25 21:52 01/09/25 16:15 01/08/25 18:20 01/08/25 18:06 Urine Creatinine 180.93 mg/dL (30.0-125.0) Urine Sodium 27 mmol/L (40-220) Stool Occult Blood Positive (Negative) Stool Occult Blood Sample #3 (Negative) Tumor Marker Alpha Fetoprotein 2.0 ng/mL (0.0-6.4) Blood Gas Specimen Type Arterial Blood Gas Sample Site Right radial Blood Gas Patient Temperature 37.0 Arterial Blood Date Drawn [id number] Arterial Blood pH 7.374 (7.350-7.450) Arterial Blood Partial Pressure CO2 23.6 mmHg (32.0-45.0) Arterial Blood Partial Pressure O2 68.1 mmHg (83.0-108.0) Arterial Blood HCO3 13.5 mmol/L (21.0-28.0) Arterial Blood Oxygen Saturation 90.9 % (94.0-98.0) Arterial Blood Base Excess -10.7 mmol/L (-2.0-3.0) Arterial Blood Oxyhemoglobin 88.7 % (94.0-98.0) Arterial Blood Carboxyhemoglobin 1.8 % (0.5-1.5) Arterial Blood Methemoglobin 0.6 % (0.0-1.5) Jeffrey Test Yes Blood Gas Total Hemoglobin 6.50 g/dL (12.0-16.0) Blood Gas Modality Room air Blood Gas Spontaneous Rate 22 FiO2 % 21.0 Blood Gas Critical Value Read Back yes Blood Gas Notified Whom md paddy de la torre Blood Gas Notified Time [id number] Blood Gas Notified By pantera Cardenas 01/08/25 16:30 01/08/25 16:06 01/08/25 15:00 01/08/25 14:15 Urine Color Yellow (Yellow) Urine Clarity Turbid (Clear) Urine pH 5.5 (5.0-9.0) Urine Specific [place] 1.014 (1.001-1.035) Urine Protein 2+ (Negative) Urine Ketones Negative (Negative) Urine Blood Negative /uL (Negative) Urine Nitrite Negative (Negative) Urine Bilirubin 1+ (Negative) Urine Urobilinogen 2 mg/dL (Negative) Urine Leukocyte Esterase Negative /uL (Negative) Urine RBC 2 /hpf (0 - 4) Urine Microscopic WBC 3 /HPF (0-5) Urine Squamous Epithelial Cells Few /hpf (<5) Urine Amorphous Crystals Mod /hpf (None Seen) Urine Bacteria Few /hpf (None Seen) Urine Protein/Creatinine Ratio 0.96 Urine Glucose Normal mg/dL (Normal) Urine Total Protein 232.7 mg/dL (1-14) Urine Opiates Screen Neg (NEGATIVE) Urine Fentanyl Screen Neg (NEGATIVE) Urine Barbiturates Screen Neg (NEGATIVE) Urine Phencyclidine Screen Neg (NEGATIVE) Urine Amphetamines Screen Neg (NEGATIVE) Urine Benzodiazepines Screen Neg (NEGATIVE) Urine Cocaine Screen Neg (NEGATIVE) Urine Cannabinoids Screen Neg (NEGATIVE) Plasma/Serum Blood Alcohol < 3.0 mg/dL (<10) Body Fluid Source Peritoneal fluid Body Fluid pH 8.0 Body Fluid WBC (Manual) 801 CUMM (0-200) Body Fluid RBC (Manual) 3308 CUMM (0-2000) Body Fluid Mononuclear Cells 89 % Body Fluid Polymorphonuclear Cells 11 % (0-25) Body Fluid Glucose 106 mg/dL (.) Body Fluid Total Protein 3.1 g/dL (.) Test 01/08/25 11:35 01/08/25 08:30 01/07/25 15:55 POC Glucose 94 mg/dl (70-106) Reticulocyte Count (auto) 2.52 % (0.5-1.5) Serum Osmolality 273 mOsm/kg (278-298) Thyroid Stimulating Hormone (TSH) 1.88 uIU/mL (0.55-4.78) Beta HCG, Quantitative 0.7 mIU/mL (1.5-4.2) Hypochromasia (manual) Moderate Poikilocytosis (manual) Slight Lipase 109 U/L (12-53) Other Laboratory Tests 01/26/25 05:03 Brief Hx & Hospital Course: Patient is a 38-year-old female with past medical history of chronic severe anemia which required blood transfusions via before in June on August, uterine fibroids, chronic liver ascites who came to the ED with chief complaint of severe diffuse abdominal pain 8/10 in intensity, which radiates to the back, gradual increase in shortness of breath, and nausea since the past week. She complained of severe bloating and abdominal swelling since last Saturday, dry mouth, dry cough, dizziness, and bilateral leg pain due to edema. but he denies any hematemesis, headaches, diarrhea, dysuria, hematuria, but she complains her stool is darker than usual. Patient was supposed to follow-up with OBGYN for possible hysterectomy but did not. She states that she had no prior diagnosis of cirrhosis but was told during her June 2024 admission that she had liver and kidney damage. During the admission, patient had hemoglobin 4.5 on arrival, received 4 packed RBCs and 1 FFP, variceal bleed was suspected and patient was started on pantoprazole b.i.d., octreotide drip, GI consulted, patient was oliguric, nephrology was consulted - judicious IV fluids and volume expansion was done which did not improve her urine output, IR guided tunneled cath was placed for hemodialysis and patient was started on hemodialysis from 01/12 and was continued regularly till discharge. Patient's lower extremity swelling started to resolve, she felt better and her mobility improved. Patient required IV Levophed supplementation during hemodialysis, she was kept on midodrine 15 mg TID. Hepatorenal syndrome is suspected, she was started on stress dose steroids which she completed for 5 days, hydrocortisone 50 mg q.6 hourly. GI discontinued octreotide drip and started prednisone 40 mg daily, tapered to 20 mg daily, patient's meld score decreased and her condition improved. Patient was also started on dopamine for renal perfusion but Patient ran SVT, vagal maneuvers did not improve. Per minute and with the back and maneuvers. Dopamine was discontinued. 01/08-paracentesis was completed, 600 cc was removed, fluid analysis showed SBP, patient was kept on IV Levaquin which was switched to IV Cipro daily, fluid culture was negative. Simultaneously radiologist was consulted for liver biopsy given CT scan showing innumerable liver masses, liver biopsy results showed Liver biopsy shows steatohepatitis and cirrhosis, dysplasia can not be ruled out. Consequently CT with IV contrast was completed which showed no liver masses,Pelvic ultrasound showed 5 cm right adnexal heterogeneous mass with vascularity. CA 125 was elevated, OBGYN recommended daycare director Oncology eval and higher level of care - for August Santos, CA 125 could be elevated because of liver disease, and that the pelvic masses stable in size and not increasing, she would benefit from outpatient eval and possible outpatient hysterectomy. Patient's hemoglobin was stable, chair time was arranged with [facility] dialysis on Saturday/Saturday/Saturday. PT was consulted, patient was ambulated with the help of a walker, a walker and wheelchair was provided to the patient. 01/26-patient is hemodynamically stable, off pressors for 48 hours, ambulating with walker, underwent hemodialysis 01/26, chair time arranged for tomorrow, patient was stable for discharge discharge planning was completed with at bedside, plan was discussed which included follow up with higher level of care patient for daycare director Oncology follow up with straightedge worker as outpatient. Medication reconciliation and prescription was completed and explained to the patient along with side effects at bedside. Patient was discharged clinical of hydrocortisone and prednisolone. Octreotide for 7 days sc injections. Per cloth beamer, she would benefit from outpatient Nephrology follow up for continuation of diuresis. Discharge instructions: tab cortef taper tab prednisone taper Octreotide SC inj daily for 7 days Lactulose bidprn Lasix 40mg daily Midodrine 15mg tid Ursodiol daily Operations or Procedures ORDERING PHYSICIAN: MILE LORA RESIDENT PROCEDURE(s): ABPEL - CT AB PELVIS W WO CON-IV ONLY REASON: Evaluate for liver mass, Liver mass protocol ORDER NUMBER(s): [id number], ACCESSION NUMBER(s): [id number] Exam: CT CT AB PELVIS W WO CON-IV ONLY History: Evaluate for liver mass, Liver mass protocol COMPARISON: US PELVIC on DOS: 01/21/25, US ABDOMEN LIMITED on DOS: 01/20/25, MRI MRI ABD PELVIS W/O CONT on DOS: 01/10/25 Technique: 85 mL of Omnipaque [address] of the abdomen and pelvis was performed from lung bases to pubic symphysis. Intravenous contrast was administered during this examination. Portal venous imaging was obtained. Axial, coronal and sagittal multiplanar reformats were performed by the technologist on a separate workstation. Radiation Dose : 1. Abdomen/Pelvis: CTDIvol 30.06mGy, DLP 4.61 mGy*cm. CONTRAST: Type of contrast: Omnipaque 300 Contrast injected: 85 ml Findings: Lung Bases: Consolidation of the left lung base with left pleural effusion Liver: The liver is normal in size. No focal lesions. Normal hepatic vascular enhancement. Trace ascites along the inferior hepatic tip Spleen: Unremarkable Pancreas: The pancreas is normal in appearance without focal lesions or abnormal enhancement. Adrenal Glands: Unremarkable Kidneys: No hydronephrosis. Bladder: Unremarkable Bowel: The stomach is grossly normal in appearance. Small bowel and colon are normal in caliber and distribution. The appendix is not visualized; however, no secondary findings of acute appendicitis identified. Ascites: There is free fluid present mainly in the pelvis. Lymphadenopathy: No mesenteric, retroperitoneal or periportal lymphadenopathy. Abdominal Wall and Mesentery: Unremarkable. Vasculature: The visualized abdominal aorta is normal in size and caliber. Abdominal and pelvic vessels demonstrate normal enhancement. Pelvic Organs: Small calcified uterine fibroids. Musculoskeletal: No aggressive focal bony lesions, acute fractures or dislocation. IMPRESSION: 1. No liver masses are seen. 2. There is some ascites present 3. Small gallstones without biliary dilatation 4. Effusion and consolidation in the left lung base Radiation optimization: All CT scans at this facility use at least one of these dose optimization techniques: automated exposure control mA and/or kV adjustment per patient size (includes targeted exams where dose is matched to clinical indication) or iterative reconstruction. ATED BY: UCHE FREED MD DICTATED DATE/TIME: 01/21/251706 SIGNED BY: UCHE FREED MD SIGNED DATE/TIME: 01/21/251706 CC: ORDERING PHYSICIAN: DIANE FENG MD PROCEDURE(s): PARAC - PARACENTESIS REASON: ASCITES ORDER NUMBER(s): [id number], ACCESSION NUMBER(s): [id number] PROCEDURE: ULTRASOUND GUIDED PARACENTESIS HISTORY: 39 Female requiring paracentesis. TECHNIQUE: The risks and benefits of the procedure including but not limited to bleeding, infection and injury to abdominal organs were explained to the patient and written informed consent was obtained. Optimal site for puncture was determined using ultrasound and the area sterilized and draped. Using a 5 [place] Needeh catheter, paracentesis was performed in the right lower abdomen. Approximately 2.6 liters of straw colored fluid was removed. The patient tolerated the procedure well. There were no immediate complications. IMPRESSION: Ultrasound-guided paracentesis with no immediate complications. ATED BY: IRMA REES MD DICTATED DATE/TIME: 01/08/251348 SIGNED BY: IRMA REES MD SIGNED DATE/TIME: 01/08/251348 CC: Condition at Discharge: Poor Final Diagnosis/Problems List Acute on chronic decompensated liver failure with coagulopathy, and hyperbilirubinemia - meld score 35->32 - MDF - 40.9->29.8 , [place] model 0.010 MARSHALL Possible acute Heptorenal Syndrome requiring Hemodialysis Likely Spontaneoud Bacterial Peritonitis s/p paracentesis 01/08 Diffuse Anasarca Generalized weakness secondary to acute blood loss anemia Upper GI bleed, likely esophageal varices Hypotension requiring pressor Possible metastatic liver disease - primary unknown (possible ovarian mass) s/p liver biopsy 01/12 Hyponatremia d/t voulme overload Chronic alcohol dependence Alcoholic withdrawal - CIWA less than 8 hypervolemic hypotonic hyponatremia possibly secondary to cirrhosis Anion gap metabolic acidosis secondary to lactic acid Oliguria Pelvic mass ? 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 oncology as outpatient as soon as possible follow up with Milieu Therapist within 2 weeks follow up with [facility] dialysis saturday 01/27, and saturday for hemodialysis follow up with GI as outpatient in 2 weeks Medications: tab cortef taper tab prednisone taper Octreotide SC inj daily for 7 days Lactulose bidprn Lasix 40mg daily Ursodiol daily Scheduled Cholecalciferol (Vitamin D), 5,000 UNIT OR DAILY Ferrous Sulfate (Ferrous Sulfate), 325 MG PO MWF Folic Acid (Folic Acid), 1 MG PO DAILY Furosemide (Lasix), 40 MG PO DAILY Hydrocortisone Base (Cortef), 10 MG OR DAILY Lactulose (Lactulose), 30 ML PO BID Midodrine HCl (Midodrine HCl), 15 MG PO TID@0600,1200,1800 Nutritional Supplements (Nepro with Carbsteady), 240 ML PO BID Nystatin (Mycostatin), 1 APPLIC TOP BID Octreotide Acetate (Octreotide Acetate), 100 MCG SC DAILY Prednisone (Prednisone), 20 MG PO DAILY Thiamine Hcl (Vitamin B-1), 100 MG PO DAILY Trazodone Hcl (Trazodone Hcl), 50 MG PO HS Ursodiol (Ursodiol), 300 MG PO BID Scheduled PRN Prednisone (Prednisone), 10 MG PO DAILY PRN Discharge Statement: "Patient was advised to return to the ER or call 911 if any headaches, dizziness, shortness of breath, chest pain, abdominal pain, bleeding, fevers, or worsening of medical condition. Patient was counseled about treatment plan, medications, possible side effects, patientverbalized understanding. All questions were answered to the best of my ability. This discharge took greater then 30 minutes in planning, reviewing documentation, counseling the patient, and discussing with other team members." ASSESSMENT ASSESSMENT Assessment Acute on chronic decompensated liver failure - meld score 35->32 - MDF - 40.9- >29.8 , [place] model 0.010 Possible acute Heptorenal Syndrome requiring Hemodialysis BRENDA HITCHCOCK RESIDENT Jan 26, 2025 16:06
--- NOTE | 2025-01-26 16:13 | DVHPN2 ---
Progress Note Date Seen: Jan 26, 2025 Resident Creating Document: MILE LORA RESIDENT Has the PT tested + for MRSA If YES, has PT been informed?: No Medical Necessity Reason Pt with a Central, PICC or Fol: Yes The following are medically ne: Central Line, Torres Catheter Subjective Review of Systems Interval progress- From GI standpoint-patient continues to improve clinically with stable hemodynamics, tolerating feeds, and improving edema. Hemoglobin stable at 7.2, WBC increased at 19.1 on steroids, alkaline phosphatase unchanged, total bilirubin elevated at 6.4 worsening from prior. LFTs trending upwards. Due to chronic underlying cirrhosis. Patient to continue on steroid taper, scheduled for hemodialysis today and scheduled for discharge today and outpatient GI and OBGYN oncology follow-up arranged. We will closely monitor the patient on outpatient GI consult with us Objective vital signs Vital Sign Date Time Temp Pulse Resp B/P (MAP) Pulse Ox O2 Delivery O2 Flow Rate FiO2 01/26/25 15:15 73 15 92/43 (59) 01/26/25 15:00 96 01/26/25 10:12 97.1 01/26/25 08:00 Room Air* 0 21 Total Intake and Output 01/25/25 01/25/25 01/26/25 15:00 23:00 07:00 Intake Total 700 ml Output Total 125 ml 250 ml Balance 575 ml -250 ml medications Current Medications Medications Dose Ordered Sig/Bárbara Route Start Time Stop Time Status Last Admin Dose Admin Ondansetron HCl 4 mg Q4HP PRN IV 01/07/25 17:15 01/07/25 19:24 4 MG Docusate Sodium 100 mg BIDPRN PRN PO 01/07/25 17:15 Nitroglycerin 0.4 mg Q5MINP PRN SL 01/07/25 17:15 Pantoprazole Sodium 40 mg BID IV 01/08/25 22:00 01/26/25 08:43 40 MG Metolazone 15 mg DAILY PO 01/11/25 11:00 01/25/25 07:46 15 MG Trazodone HCl 50 mg HS PO 01/12/25 22:00 01/25/25 21:13 50 MG Folic Acid 1 mg DAILY PO 01/12/25 10:00 01/26/25 08:46 1 MG Ciprofloxacin 200 ml @ 200 mls/hr DAILY IV 01/13/25 10:00 01/26/25 12:59 200 MLS/HR Midodrine 15 mg TID@0600,1200,1800 PO 01/13/25 18:00 01/26/25 12:56 15 MG Epoetin Gilbert-epbx 10,000 unit TUTHSA@2100 SC 01/16/25 21:00 01/23/25 21:51 10,000 UNIT Ursodiol 300 mg BID PO 01/16/25 22:00 01/26/25 08:47 300 MG Thiamine HCl 100 mg DAILY PO 01/19/25 10:00 01/26/25 08:47 100 MG Enteral Nutritional Formula 240 ml BID PO 01/19/25 10:00 01/26/25 10:05 240 ML Nystatin 1 applic BID TOP 01/19/25 10:30 01/26/25 10:06 1 APPLIC Albumin Human 100 ml @ 100 mls/hr PRN PRN IV 01/20/25 10:30 01/25/25 10:44 100 MLS/HR Lactulose 30 ml BID PO 01/21/25 22:00 01/26/25 08:47 30 ML Prednisone 20 mg DAILY PO 01/22/25 10:00 01/26/25 08:47 20 MG Norepinephrine Bitartrate 250 ml @ 0.938 mls/ hr Q24H IV 01/22/25 16:00 01/22/25 16:51 1.875 MLS/HR Octreotide Acetate 100 mcg BID SUBCUT 01/23/25 22:00 01/26/25 09:00 100 MCG Bumetanide 2 mg BIDD PO 01/23/25 18:00 01/26/25 05:19 2 MG Hydrocortisone 30 mg DAILY PO 01/23/25 17:15 01/26/25 08:43 30 MG Examination General: Chronically ill-appearing, jaundiced, on vasopressor support. * Abdomen: Mild distention with ascites; soft, non-tender; no guarding or rebound. * Skin: Jaundice present; no spider angiomas noted. * Neuro: Alert, oriented 3; no asterixis laboratory and microbiology Laboratory Tests 01/26/25 05:03 Test 01/26/25 05:03 Range/Units Serum Glucose 129 H 74-106 mg/dL Microbiology Date/Time Source Procedure Growth Status 01/21/25 09:45 Blood Blood Culture - Final NO GROWTH AFTER 5 DAYS OF INCUBATION. Complete 01/11/25 00:20 Nose MRSA Screen - Final Complete 01/08/25 15:00 Ascities Fluid Gram Stain - Final Complete 01/08/25 15:00 Ascities Fluid Body Fluid Culture - Final Complete Problem List/Assessment/Plan Problem List/Assessment/Plan Assessment 1. Decompensated alcoholic cirrhosis with severe ascites, coagulopathy, and hyperbilirubinemia (MELD ~35)., Maddrey DF score is 40.4 which is poor prognosis/ONGOING IV CORTICOSTEROIDS 2. Multiple hepatic lesions,. 3. Hepatorenal syndrome ongoing HD. 4. Severe ascites and anasarca improving with HD and paracentesis. 5. Acute on chronic GI bleed (melena) positive stool occult blood, anemia requiring transfusion. 6. Severe anemia secondary to chronic liver disease and GI bleeding./anemia of chronic disease/hemoglobin stable at 8.0 7. Pelvic mass (fibroid vs endometrioma) needs ARBORER-oncology follow-up. 8. Severe malnutrition on clear liquids, receiving high-protein oral supplementation. 9. Coagulopathy of liver disease/elevated INR PT and APTT/given vitamin K IV once/monitor for bleeding 10. Right adnexal mass 5 cm, heterogeneous with vascularities-highly suspicious for neoplasm, requires higher level OBGYN Oncology evaluate Plan Gastrointestinal / Hepatic We will follow up the patient on outpatient basis for further evaluation and management of cirrhosis and end-stage liver disease OBGYN recommendation-transfer to higher level of care for gynecological oncology evaluation given adnexal mass. Steroid taper as planned- Prednisolone p.o. 20 mg daily into 2 weeks. Continue octreotide SQ Hydrocortisone 30 mg daily for 1 week next 20 mg daily for 2 weeks next 10 mg daily into 2 weeks. Add ursodiol 300 mg p.o. twice a day Hypotension likely due to underlying chronic liver disease Monitor labs Await liver biopsy results hopefully we should have report by next week * Continue monitoring post-liver biopsy for bleeding. * Discontinue octerotide * Maintain Pantoprazole IV BID for GI bleed prophylaxis. * Avoid hepatotoxic medications and opioids (alphonso. morphine). * Use non-opioid analgesics for RUQ pain. Continue lactulose 30 mL * Plan for EGD and colonoscopy once hemodynamically stable to evaluate varices and rule out colorectal malignancy. * Continue SBP prophylaxis with IV ciprofloxacin daily. * Monitor LFTs, INR, CBC daily. OBGYN consult for fell pelvic mass, CA 125 correlation Ascites Reinforce RLQ site dressing, monitor for infection signs. * Continue fluid and sodium restriction. * Continue triple diuretics (Tolvaptan, Bumetanide, Metolazone) per nephrology. * Monitor paracentesis site for infection; apply dressing. * Repeat paracentesis PRN for recurrent tense ascites. Nutrition * Continue soft diet; advance as tolerated. * Monitor intake and weight daily. * Consider nutrition consult and TPN if oral intake insufficient. Oncology * Early oncology consult once biopsy results available. * Evaluate for possible metastatic colorectal cancer vs HCC. Hematology * PRBC transfusion PRN to maintain Hgb >8.0. * Continue Epoetin Gilbert-epbx SC protocol. * Monitor platelets, INR daily. Infectious Disease * Continue IV antibiotics (ciprofloxacin) for SBP prophylaxis. * Monitor cultures. Case discussed in detail with the attending physician, including the clinical presentation, diagnostic workup, and comprehensive management plan. The patient was present for the discussion and demonstrated understanding of her condition and the proposed plan. Plan discussed with: Patient Dietary Evaluation Review Comments: 1) Continue thiamin supplementation. Consider adding folic acid and multivitamin. 2) Encourage optimal PO intake 3) Advance to 2g Na 80g hepatic diet when medically feasible 4) Refer to outpatient RD for weight management 5) Follow-up with hepatology, gastroenterology, and nephrology 6) Follow-up with social studies department chair r/t ETOH dependency 7) Continue to monitor I&O, labs, and skin integrity Expected Outcomes/Goals: 1) appetite and labs to improve 2) GI symptoms to resolve 3) diet to advance 4) f/u in 3-5 days CC Plasma Assessment Blood Product Administration S: [id number] MILE LORA RESIDENT Jan 26, 2025 16:13
== END 2025-01-26 16:00 | disposition home or self-care (01) | DRG 280 ==
LOC: ER 14:46 → OVERFLOW 17:03 → TELE-WESTW 22:23 → ICU CENTRL 01-10 23:55
PROVIDERS: ADMIT Student in an Organized Health Care Education/Training Program; ATTEND Student in an Organized Health Care Education/Training Program
PROC: 30233N1 Transfusion of Nonautologous Red Blood Cells into Peripheral Vein, Percutaneous Approach (ICD-10-PCS; principal; 2025-01-07)
PROC: 0W9G3ZZ Drainage of Peritoneal Cavity, Percutaneous Approach (ICD-10-PCS; 2025-01-08)
PROC: 30233K1 Transfusion of Nonautologous Frozen Plasma into Peripheral Vein, Percutaneous Approach (ICD-10-PCS; 2025-01-09)
PROC: 0JH63XZ Insertion of Tunneled Vascular Access Device into Chest Subcutaneous Tissue and Fascia, Percutaneous Approach (ICD-10-PCS; 2025-01-11)
PROC: 02H633Z Insertion of Infusion Device into Right Atrium, Percutaneous Approach (ICD-10-PCS; 2025-01-11)
PROC: B5181ZA Fluoroscopy of Superior Vena Cava using Low Osmolar Contrast, Guidance (ICD-10-PCS; 2025-01-11)
PROC: B548ZZA Ultrasonography of Superior Vena Cava, Guidance (ICD-10-PCS; 2025-01-11)
PROC: 5A1D70Z Performance of Urinary Filtration, Intermittent, Less than 6 Hours Per Day (ICD-10-PCS; 2025-01-11)
PROC: 05HD33Z Insertion of Infusion Device into Right Cephalic Vein, Percutaneous Approach (ICD-10-PCS; 2025-01-11)
PROC: B54MZZA Ultrasonography of Right Upper Extremity Veins, Guidance (ICD-10-PCS; 2025-01-11)
PROC: 0FB13ZX Excision of Right Lobe Liver, Percutaneous Approach, Diagnostic (ICD-10-PCS; 2025-01-12)
PROC: 5A1D70Z Performance of Urinary Filtration, Intermittent, Less than 6 Hours Per Day (ICD-10-PCS; 2025-01-12)
PROC: 5A1D70Z Performance of Urinary Filtration, Intermittent, Less than 6 Hours Per Day (ICD-10-PCS; 2025-01-13)
PROC: 5A1D70Z Performance of Urinary Filtration, Intermittent, Less than 6 Hours Per Day (ICD-10-PCS; 2025-01-15)
PROC: 5A1D70Z Performance of Urinary Filtration, Intermittent, Less than 6 Hours Per Day (ICD-10-PCS; 2025-01-17)
PROC: 5A1D70Z Performance of Urinary Filtration, Intermittent, Less than 6 Hours Per Day (ICD-10-PCS; 2025-01-19)
PROC: 5A1D70Z Performance of Urinary Filtration, Intermittent, Less than 6 Hours Per Day (ICD-10-PCS; 2025-01-22)
PROC: 5A1D70Z Performance of Urinary Filtration, Intermittent, Less than 6 Hours Per Day (ICD-10-PCS; 2025-01-23)
PROC: 5A1D70Z Performance of Urinary Filtration, Intermittent, Less than 6 Hours Per Day (ICD-10-PCS; 2025-01-25)
PROC: 5A1D70Z Performance of Urinary Filtration, Intermittent, Less than 6 Hours Per Day (ICD-10-PCS; 2025-01-26)
DX: K70.31 Alcoholic cirrhosis of liver with ascites (principal); K70.10 Alcoholic hepatitis without ascites; N17.0 Acute kidney failure with tubular necrosis; R57.8 Other shock; K76.7 Hepatorenal syndrome; I85.11 Secondary esophageal varices with bleeding; E43 Unspecified severe protein-calorie malnutrition; K65.2 Spontaneous bacterial peritonitis; D68.4 Acquired coagulation factor deficiency; D62 Acute posthemorrhagic anemia; D63.8 Anemia in other chronic diseases classified elsewhere; D69.6 Thrombocytopenia, unspecified; J90 Pleural effusion, not elsewhere classified; E11.22 Type 2 diabetes mellitus with diabetic chronic kidney disease; E87.1 Hypo-osmolality and hyponatremia; K80.20 Calculus of gallbladder without cholecystitis without obstruction; J98.11 Atelectasis; N18.2 Chronic kidney disease, stage 2 (mild); E87.70 Fluid overload, unspecified; I12.9 Hypertensive chronic kidney disease with stage 1 through stage 4 chronic kidney disease, or unspecified chronic kidney disease; F10.239 Alcohol dependence with withdrawal, unspecified; D25.9 Leiomyoma of uterus, unspecified; K72.10 Chronic hepatic failure without coma; E87.20 Acidosis, unspecified; G47.00 Insomnia, unspecified; K75.81 Nonalcoholic steatohepatitis (NASH); Z88.0 Allergy status to penicillin; Z79.899 Other long term (current) drug therapy; Z83.3 Family history of diabetes mellitus; Z82.49 Family history of ischemic heart disease and other diseases of the circulatory system; Z83.2 Family history of diseases of the blood and blood-forming organs and certain disorders involving the immune mechanism; Z91.199 Patient's noncompliance with other medical treatment and regimen due to unspecified reason; Z68.41 Body mass index [BMI] 40.0-44.9, adult; Y90.0 Blood alcohol level of less than 20 mg/100 ml; C78.7 Secondary malignant neoplasm of liver and intrahepatic bile duct
CPT/HCPCS: 36415; 36558; 36600; 47000; 49083; 71045; 72195; 74018; 74176; 74178; 74181; 76705; 76775; 76830; 76856; 76937; 76942; 77001; 80048; 80053; 80076; 80307; 80320; 81001; 82040; 82105; 82140; 82248; 82270; 82378; 82570; 82607; 82728; 82805; 82962; 83516; 83540; 83550; 83605; 83615; 83690; 83735; 83880; 83930; 83935; 83986; 84100; 84156; 84300; 84443; 84550; 84702; 85007; 85014; 85018; 85025; 85027; 85045; 85610; 85730; 86160; 86225; 86235; 86301; 86304; 86803; 86850; 86900; 86901; 86920; 87040; 87081; 87205; 87340; 89051; 90935; 93005; 93306; 94640; 96365; 96366; 96367; 96375; 97110; 97116; 97163; 99152; 99291; C1894; G0378; J1642; J1815; J1956; J2003; J2250; J2405; J2470; J3430; J7060; P9047

== ENCOUNTER 2025-03-11 16:41 | Emergency (ER) | payer MEDICAID ==
[~2025-03-11] VITALS: Ht 177.8 cm; Wt 78.2 kg
[~2025-03-11 16:41] MED LIST changes: +FOLI-119 PO; +HYDR10T OR; +LACT10SO3 PO; +MID10T PO; +NYS15PW TOP; +PRED10TA PO; +PRED20TA2 PO; +THIA100T10 PO; +TRAZ-227 PO; +URSO300C2 PO; +[UNRECOGNIZED DRUG - CODE] PO; +[UNRECOGNIZED DRUG - CODE] SC
[2025-03-11 17:24] LABS: Hematocrit 28.7 % (36.0-46.0); Hemoglobin 9.7 g/dL (12.2-16.2); Mean Corpuscular Hemoglobin 33.8 pg (28.0-32.0); Mean Corpuscular Volume 99.7 fL (80.0-100.0); Nucleated Red Blood Cells % 0.2 %
[2025-03-11 17:29] LABS: Potassium 3.6 mmol/L (3.5-5.1); Sodium 138 mmol/L (136-145)
[2025-03-11 17:30] LABS: Anion Gap 11 (5-15); Calcium 8.8 mg/dL (8.7-10.4); Carbon Dioxide 29 mmol/L (20-31)
[2025-03-11 17:31] LABS: Chloride 98 mmol/L (98-107)
[2025-03-11 17:35] LABS: BUN/Creatinine Ratio 11.0 (10.0-20.0)
[2025-03-11] MEDS: LACTULOSE 20Gm/30ML SOLN PO ONE (17:35)
[2025-03-11 17:36] LABS: Blood Urea Nitrogen 26 mg/dL (9-23); Glucose 188 mg/dL (74-106)
--- NOTE | 2025-03-11 17:46 | ED.PDOC ---
GI ASSESSMENT HPI Comments 39 y/o F, with PMHx of CKF, anemia, and liver disease presents to the ED for CC of GI Bleed. Patient states, she has had "bright red" bloody stools [id number]. Patient relays, blood to not only be coming from her rectum when having a bowel movement but to also be during urination. Patient comments, recent constipation. Patient denies dysuria, back pain, flank pain, frequency, nausea, vomiting, or abdominal pain. No other symptoms or modifying factors are present at this time. Chief Complaint: GI Bleed Time Seen by MD: 17:00 Primary Care Provider: None Reviewed Notes: Nurses Notes, Medications, Allergies Allergies: Coded Allergies: Ketorolac Tromethamine (Verified Allergy, Severe, dizziness, 06/13/24) Penicillins (Verified Allergy, Mild, dizziness, 06/13/24) Home Meds Active Scripts Hydrocortisone Base (CORTEF) 10 Mg Tab, 10 MG OR DAILY for 36 Days, #65 TAB Three tablets of 10 mg daily for 1 week 2 tablets of 10 mg daily for the next 2 weeks 1 tablet of 10 mg daily for the next 2 weeks Prov:[facility] 01/25/25 Ursodiol (Ursodiol) 300 Mg Cap, 300 MG PO BID for 30 Days, #60 CAP [facility] 01/25/25 Trazodone Hcl (Trazodone Hcl) 50 Mg Tab, 50 MG PO HS for 30 Days, #30 TAB [facility] 01/25/25 Thiamine Hcl (VITAMIN B-1) 100 Mg Tb, 100 MG PO DAILY for 30 Days, #30 TAB [facility] 01/25/25 Nystatin (Mycostatin) 1 Applic Ap, 1 APPLIC TOP BID for 30 Days, #5 APPLIC [facility] 01/25/25 Nutritional Supplements (Nepro with Carbsteady) 1 Liq Liq, 240 ML PO BID for 30 Days, #60 LIQ [facility] 01/25/25 Midodrine HCl (Midodrine HCl) 10 Mg Tab, 15 MG PO TID@0600,1200,1800 for 30 Days, #90 TAB [facility] 01/25/25 Lactulose (Lactulose) 10 Gm/15 Ml Lu, 30 ML PO BID for 30 Days, #30 ML Prov:[facility] 01/25/25 Folic Acid (Folic Acid) 1 Mg Tab, 1 MG PO DAILY for 30 Days, #30 TAB Prov:[facility] 01/25/25 Ferrous Sulfate (FERROUS SULFATE) 325 Mg Tb, 325 MG PO MWF for 30 Days, #30 TAB Prov:[facility] 01/25/25 Furosemide (Lasix) 20 Mg Tb, 40 MG PO DAILY for 10 Days, #20 TAB Prov:[facility] 01/25/25 Cholecalciferol (VITAMIN D) 5,000 Unit Tab, 5000 UNIT OR DAILY for 30 Days, #30 TAB 0 Refills Prov:[facility] 01/25/25 Octreotide Acetate (Octreotide Acetate) 100 Mcg/Ml Inj, 100 MCG SC DAILY for 7 Days, #7 INJ Prov:[facility] 01/25/25 Prednisone (Prednisone) 20 Mg Tab, 20 MG PO DAILY for 30 Days, #30 MG 0 Refills 01/26/25 to 02/26/25 : prednisone 20mg daily 02/26/25 to 03/28/25 : prednisone 20mg daily Prov:[facility] 01/25/25 Prednisone (Prednisone) 10 Mg Tab, 10 MG PO DAILY PRN for 30 Days, #30 MG 0 Refills 01/26/25 to 02/26/25 : prednisone 20mg daily 02/26/25 to 03/28/25 : prednisone 10mg daily Prov:[facility] 01/25/25 Information Source: Patient Mode of Arrival: Wheelchair Timing: Days Duration: Since onset Prehospital treatment: None Quality: None Vomitus: None Stool: Blood Streaked Severity: Moderate Recent: None Recent Hx of: None Modifying Factors: Nothing Associated sign and symptoms: Blood in Stool Past Medical History PAST MEDICAL HISTORY: Anemia, CKF, ESRD (On dialysis), Liver Surgical History: Denies all surgeries WELL TESTER History: No Pertinent WELL TESTER History Family History Family History: Family hx of DM Social History Smoker: Non-Smoker Alcohol: Sober Drugs: Denies Drug Use Lives In: Home Constitutional: denies: chills, diaphoresis, fatigue, fever, malaise, sweats, weakness, others EENTM: denies: blurred vision, double vision, ear bleeding, ear discharge, ear drainage, ear pain, ear ringing, eye pain, eye redness, hearing loss, mouth pain, mouth swelling, nasal discharge, nose bleeding, nose congestion, nose pain, photophobia, tearing, throat pain, throat swelling, voice changes, others Respiratory: denies: cough, hemoptysis, orthopnea, SOB at rest, shortness of breath, SOB with excertion, stridor, wheezing, others Cardiovascular: denies: chest pain, dizzy spells, diaphoresis, Dyspnea on exertion, edema, irregular heart beat, left arm pain, lightheadedness, palpitations, PND, syncope, others Gastrointestinal: reports: others (blood in stool); denies: abdomen distended, abdominal pain, blood streaked bowels, constipated, diarrhea, dysphagia, difficulty swallowing, hematemesis, melena, nausea, poor appetite, poor fluid intake, rectal bleeding, rectal pain, vomiting Genitourinary: reports: hematuria; denies: abnormal vagina bleeding, burning, dyspareunia, dysuria, flank pain, frequency, incontinence, pain, , vagina discharge, urgency, others Neurological: denies: dizziness, fainting, headache, left sided numbness, left sided weakness, numbness, paresthesia, pre-existing deficit, right sided numbness, right sided weakness, seizure, speech problems, tingling, tremors, weakness, others Musculoskeletal: denies: back pain, gout, joint pain, joint swelling, muscle pain, muscle stiffness, neck pain, others Integumetry: denies: bruises, change in color, change in hair/nails, dryness, laceration, lesions, lumps, rash, wounds, others Allergic/Immunocompromised: denies: Difficulty Healing, Frequent Infections, Hives, Itching, others Hematologic/Lymphatic: denies: anemia, blood clots, easy bleeding, easy bruising, swollen glands, others Endocrine: denies: excessive hunger, excessive sweating, excessive thirst, excessive urination, flushing, intolerance to cold, intolerance to heat, unexplained weight gain, unexplained weight loss, others Psychiatric: denies: anxiety, bipolar disorder, depression, hopeless, panic disorder, schizophrenia, sleepless, suicidal, others All Other Systems: Reviewed and Negative Physical Exam General Appearance: Mild Distress (Moderate distress due to rectal and urethral bleeding concerns.), Normal HEENT: Normal ENT Inspection, Pharynx Normal, TMs Normal Neck: Full Range of Motion, Non-Tender, Normal, Normal Inspection Respiratory: Chest Non-Tender, Lungs Clear, No Accessory Muscle Use, No Respiratory Distress, Normal Breath Sounds Cardiovascular: No Edema, No JVD, No Murmur, No Gallop, Normal Peripheral Pul ses, Regular Rate/Rhythm Breast Exam: Deferred Gastrointestinal: No Organomegaly, Non Tender, No Pulsatile Mass, Normal Bowel Sounds, Soft Genitalia: Deferred Pelvic: Deferred Rectal: Deferred Extremities: No calf tenderness, Normal capillary refill, Normal inspection, Normal range of motion, Non-tender, No pedal edema Neurologic: Alert Cerebellar Function: NOT DONE Reflexes: NOT DONE Skin: Dry, Normal Color, Warm Lymphatic: No Adenopathy Was a procedure done? Was a procedure done?: No GI differential Dx Differential Diagnosis: Constipation, Diverticular disease, Inflammatory BD, Other (Hemorrhoids, hematuria, UTI) X-Ray, Labs, Meds, VS Vital Signs Date Time Temp Pulse Resp B/P (MAP) Pulse Ox O2 Delivery O2 Flow Rate FiO2 03/12/25 01:35 98.4 77 20 107/62 (77) 98 98.4 03/11/25 23:08 77 20 98/58 (71) 98 03/11/25 17:32 98.1 74 16 99/43 (61) 100 98.1 03/11/25 16:44 98.2 77 16 108/68 97 98.2 Lab Test 03/11/25 21:09 03/11/25 17:02 Range/Units Urine Color Pending Urine Clarity Pending Urine pH Pending Urine Specific [place] Pending Urine Protein Pending Urine Ketones Pending Urine Blood Pending Urine Nitrite Pending Urine Bilirubin Pending Urine Urobilinogen Pending Urine Leukocyte Esterase Pending Urine RBC Pending Urine Microscopic WBC Pending Urine Squamous Epithelial Cells Pending Urine Bacteria Pending Urine Glucose Pending White Blood Count 12.8 H 4.4-10.8 10^3/uL Red Blood Count 2.88 L 4.0-5.20 10^6/uL Hemoglobin 9.7 L 12.2-16.2 g/dL Hematocrit 28.7 L 36.0-46.0 % Mean Corpuscular Volume 99.7 80.0-100.0 fL Mean Corpuscular Hemoglobin 33.8 H 28.0-32.0 pg Mean Corpuscular Hemoglobin Concent 33.9 32.0-36.0 g/dL Red Cell Distribution Width 20.5 H 11.8-14.3 % Platelet Count 151 140-450 10^3/uL Mean Platelet Volume 8.0 6.9-10.8 fL Neutrophils (%) (Auto) 79.7 37.0-80.0 % Lymphocytes (%) (Auto) 13.6 10.0-50.0 % Monocytes (%) (Auto) 4.2 0.0-12.0 % Eosinophils (%) (Auto) 1.9 0.0-7.0 % Basophils (%) (Auto) 0.6 0.0-2.0 % Neutrophils # (Auto) 10.2 H 1.6-8.6 10 ^3/uL Lymphocytes # (Auto) 1.7 0.4-5.4 10 ^3/uL Monocytes # (Auto) 0.5 0-1.3 10 ^3/uL Eosinophils # (Auto) 0.2 0-0.8 10 ^3/uL Basophils # (Auto) 0.1 0-0.2 10 ^3/uL Nucleated Red Blood Cells 0.2 % Sodium Level 138 136-145 mmol/L Potassium Level 3.6 3.5-5.1 mmol/L Chloride Level 98 98-107 mmol/L Carbon Dioxide Level 29 20-31 mmol/L Anion Gap 11 5-15 Blood Urea Nitrogen 26 H 9-23 mg/dL Creatinine 2.36 H 0.550-1.02 mg/dL Glomerular Filtration Rate Calc 26 >90 mL/min BUN/Creatinine Ratio 11.0 10.0-20.0 Serum Glucose 188 H 74-106 mg/dL Calcium Level 8.8 8.7-10.4 mg/dL Current Medications Medications (Trade) Dose Ordered Sig/Bárbara Route Start Time Stop Time Status Last Admin Lactulose 30 ml ONCE ONCE PO 03/11/25 17:00 03/11/25 17:01 DC 03/11/25 17:35 X-Ray, Labs, Meds, VS Comment All studies performed in the ED were evaluated by me personally. Serum studies revealed an anemia that the patient address his on an outpatient basis. Patient was never able to provide urine. Patient will be treated empirically for a hemorrhoid concern and UTI issue. Advised patient utilize medication as directed until completion. Advised patient follow up with the primary care provider for discussions related to her constipation, hemorrhoids and continued renal management Time of 1ST Reevaluation: 01:42 Reevaluation 1ST: Improved Consultation: PCP, Urology Patient Education/Counseling: Diagnosis, Treatment Family Education/Counseling: Diagnosis, Treatment, No Family Present SEPSIS Sepsis Screen Date sepsis recognized/suspect: Mar 11, 2025 Time Sepsis recognized/suspect: 1645 Recent Procedure: No On Antibiotic Therapy: No Respiratory Rate >20: No Heart Rate >90: No Temp<36 C (96.8 F) or >38.3 C: No SBP <90 or MAP <65 mmHG: No New Acute Mental Status Change: No Is the patient on CPAP, BIPAP,: No Physician Orders Urinalysis (03/11/25 16:55) Vital Signs Date Time Temp Pulse Resp B/P (MAP) Pulse Ox O2 Delivery O2 Flow Rate FiO2 03/12/25 01:35 98.4 77 20 107/62 (77) 98 98.4 03/11/25 23:08 77 20 98/58 (71) 98 03/11/25 17:32 98.1 74 16 99/43 (61) 100 98.1 03/11/25 16:44 98.2 77 16 108/68 97 98.2 Laboratory Tests Test 03/11/25 17:02 White Blood Count 12.8 10^3/uL (4.4-10.8) H Medications Medications Dose Ordered Sig/Bárbara Route Start Time Stop Time Status Last Admin Dose Admin Lactulose 30 ml ONCE ONCE PO 03/11/25 17:00 03/11/25 17:01 DC 03/11/25 17:35 Departure 1 Departure Time of Disposition: 01:43 Impression: Primary Impression: Hemorrhoids Additional Impressions: Constipation UTI (urinary tract infection) Disposition: 01 HOME / SELF CARE / HOMELESS Condition: Stable Additional Instructions: Advised patient utilize antibiotics as directed until completion as well as follow up with the primary care provider for discussions related to today's visit and laboratory findings. e-Prescriptions Phenylephrine-Shark Liver Oil- (Hemorrhoidal Suppositorie 0.25-3-85.5 %) 1 Sup Sup 1 SUP IL BIDP PRN, #30 SUPP Prov: ISH DODSON PAC 03/12/25 Sulfamethoxazole W/Trimethopri (Bactrim Ds Tablet) 1 Tab Tb 1 TAB PO BID for 7 Days, #14 TAB Prov: ISH DODSON PAC 03/12/25 Discharged With: Self, Friend Critical Care Note Critical Care Time?: No Stability Stability form required: No Heart Score Heart Score: Heart Score Response (Comments) Value History N/A 0 EKG N/A 0 Age N/A 0 Risk Factors N/A 0 Troponin N/A 0 Total 0 I personally scribed for ISH DODSON PAC ([email or web address]) on 03/11/25 at 17:46. Electronically submitted by Steph De La Garza ([email or web address]). ISH DODSON PAC Mar 11, 2025 17:46
[2025-03-12 01:35] VITALS: BP 107/62; PULSE 77; RESP 20; TEMP 98.4
[2025-03-12] MEDS ORDERED: PHENSUP38 PR (01:44)
[2025-03-12] MEDS ORDERED: BACDST PO (01:44)
[2025-03-12 01:46] LABS: Urine Budding Yeast OCCASIONAL /hpf (None Seen); Urine Protein, UAD TRACE (Negative)
[2025-03-12 03:02] VITALS: O2SAT 98
== END 2025-03-12 03:04 | disposition home or self-care (01) ==
LOC: ER 16:41
DX: K64.9 Unspecified hemorrhoids (principal); K59.00 Constipation, unspecified; N39.0 Urinary tract infection, site not specified; N18.6 End stage renal disease; Z79.899 Other long term (current) drug therapy; Z99.2 Dependence on renal dialysis; Z88.0 Allergy status to penicillin; Z88.8 Allergy status to other drugs, medicaments and biological substances
CPT/HCPCS: 36415; 80048; 81001; 85025

== ENCOUNTER 2025-04-18 21:51 | Inpatient (IN) | payer MEDICAID ==
[~2025-04-18] VITALS: Ht 177.8 cm; Wt 84.3 kg
[~2025-04-18 21:51] MED LIST changes: +BACDST PO; +PHENSUP38 PR
[2025-04-19] VITALS (7 sets, daily range): BP systolic 100–122; BP diastolic 41–82; PULSE 67–74; RESP 16–18; TEMP 98.2–98.6; O2SAT 97–100
--- NOTE | 2025-04-19 01:37 | ED.PDOC ---
History of Present Illness HPI Comments 31-year-old female, with a history of ESRD with hemodialysis on //, presents with chief complaint of hemodialysis catheter complication. Patient reports on going to the bathroom and having her catheter caught and pulled out of insertion site in her right, upper chest wall. Denies any active bleeding. Catheter was, originally, placed on 01/27/2025 left due to patient's kidney undergoing renal failure following acute liver cirrhosis. Patient denies having any further acute symptoms at this time. REVIEW OF SYSTEMS: General: No fever, no chills, HEENT: No neck pain, no blurred vision Cardiac: No chest pain. No palpitations. Lungs: No shortness of breath, GI: No abdominal pain, no vomiting Musculoskeletal: No joint pain , no back pain Skin: hemodialysis catheter complication. No rash, no wound Neuro: No headache, no dizziness, no syncope PHYSICAL EXAM: General: Awake, alert and oriented. No acute distress. Skin: Dressing in place to right upper chest wall. Remaining skin is warm, dry and intact without rashes or lesions. HEENT: The head is normocephalic and atraumatic. Conjunctivae are clear without exudates or hemorrhage. Sclera is non-icteric. Neck: Normal range of motion. No JVD. Cardiac: Regular rate Respiratory: No signs of respiratory distress. No Stridor. Extremities: Upper and lower extremities are atraumatic in appearance without deformity. Neurological: The patient is awake, alert and oriented to person, place, and time with normal speech. Speech is clear. There is no facial asymmetry. Psychiatric: Appropriate mood and affect. Good judgement and insight. Chief Complaint: Tube Replacement Time Seen by MD: 00:42 Primary Care Provider: None Reviewed Notes: Nurses Notes, Medications, Allergies Allergies: Coded Allergies: Ketorolac Tromethamine (Verified Allergy, Severe, dizziness, 06/13/24) Penicillins (Verified Allergy, Mild, dizziness, 06/13/24) Home Meds Active Scripts Phenylephrine-Shark Liver Oil- (Hemorrhoidal Suppositorie 0.25-3-85.5 %) 1 Sup Sup, 1 SUP IN BIDP PRN, #30 SUPP Prov:ISH DODSON PAC 03/12/25 Sulfamethoxazole W/Trimethopri (Bactrim Ds Tablet) 1 Tab Tb, 1 TAB PO BID for 7 Days, #14 TAB Prov:ISH DODSON PAC 03/12/25 Hydrocortisone Base (CORTEF) 10 Mg Tab, 10 MG OR DAILY for 36 Days, #65 TAB Three tablets of 10 mg daily for 1 week 2 tablets of 10 mg daily for the next 2 weeks 1 tablet of 10 mg daily for the next 2 weeks [facility]25 Ursodiol (Ursodiol) 300 Mg Cap, 300 MG PO BID for 30 Days, #60 CAP [facility] 01/25/25 Trazodone Hcl (Trazodone Hcl) 50 Mg Tab, 50 MG PO HS for 30 Days, #30 TAB Prov:[facility] 01/25/25 Thiamine Hcl (VITAMIN B-1) 100 Mg Tb, 100 MG PO DAILY for 30 Days, #30 TAB [facility] 01/25/25 Nystatin (Mycostatin) 1 Applic Ap, 1 APPLIC TOP BID for 30 Days, #5 APPLIC Prov[facility] 01/25/25 Nutritional Supplements (Nepro with Carbsteady) 1 Liq Liq, 240 ML PO BID for 30 Days, #60 LIQ Prov:[facility] 01/25/25 Midodrine HCl (Midodrine HCl) 10 Mg Tab, 15 MG PO TID@0600,1200,1800 for 30 Days, #90 TAB [facility] 01/25/25 Lactulose (Lactulose) 10 Gm/15 Ml Lu, 30 ML PO BID for 30 Days, #30 ML Prov[facility] 01/25/25 Folic Acid (Folic Acid) 1 Mg Tab, 1 MG PO DAILY for 30 Days, #30 TAB Prov:[facility] 01/25/25 Ferrous Sulfate (FERROUS SULFATE) 325 Mg Tb, 325 MG PO MWF for 30 Days, #30 TAB Prov[facility] 01/25/25 Furosemide (Lasix) 20 Mg Tb, 40 MG PO DAILY for 10 Days, #20 TAB Prov:[facility] 01/25/25 Cholecalciferol (VITAMIN D) 5,000 Unit Tab, 5000 UNIT OR DAILY for 30 Days, #30 TAB 0 Refills [facility] 01/25/25 Octreotide Acetate (Octreotide Acetate) 100 Mcg/Ml Inj, 100 MCG SC DAILY for 7 D ays, #7 INJ Prov:BRENDA HITCHCOCK RESIDENT 01/25/25 Prednisone (Prednisone) 20 Mg Tab, 20 MG PO DAILY for 30 Days, #30 MG 0 Refills 01/26/25 to 02/26/25 : prednisone 20mg daily 02/26/25 to 03/28/25 : prednisone 20mg daily Prov:BRENDA HITCHCOCK RESIDENT 01/25/25 Prednisone (Prednisone) 10 Mg Tab, 10 MG PO DAILY PRN for 30 Days, #30 MG 0 Refills 01/26/25 to 02/26/25 : prednisone 20mg daily 02/26/25 to 03/28/25 : prednisone 10mg daily Prov:BRENDA HITCHCOCK RESIDENT 01/25/25 Information Source: Patient, Emergency Med Personnel Mode of Arrival: Ambulatory Severity: Moderate Timing: Hours Duration: Since onset Prehospital treatment: None Past Medical History PAST MEDICAL HISTORY: Anemia, CKF, ESRD, Liver (Cirrhosis) Surgical History: Denies all surgeries 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 Was a procedure done?: No Differential Dx Considerations may include: Displacement of vascular dialysis catheter X-Ray, Labs, Meds, VS Vital Signs Date Time Temp Pulse Resp B/P (MAP) Pulse Ox O2 Delivery O2 Flow Rate FiO2 04/18/25 21:56 98.9 76 16 129/82 96 98.9 Lab Test 04/19/25 02:00 Range/Units White Blood Count 9.8 4.4-10.8 10^3/uL Red Blood Count 3.25 L 4.0-5.20 10^6/uL Hemoglobin 11.1 L 12.2-16.2 g/dL Hematocrit 32.0 L 36.0-46.0 % Mean Corpuscular Volume 98.4 80.0-100.0 fL Mean Corpuscular Hemoglobin 34.1 H 28.0-32.0 pg Mean Corpuscular Hemoglobin Concent 34.6 32.0-36.0 g/dL Red Cell Distribution Width 14.7 H 11.8-14.3 % Platelet Count 138 L 140-450 10^3/uL Mean Platelet Volume 8.5 6.9-10.8 fL Neutrophils (%) (Auto) 67.7 37.0-80.0 % Lymphocytes (%) (Auto) 23.4 10.0-50.0 % Monocytes (%) (Auto) 6.6 0.0-12.0 % Eosinophils (%) (Auto) 1.5 0.0-7.0 % Basophils (%) (Auto) 0.8 0.0-2.0 % Neutrophils # (Auto) 6.6 1.6-8.6 10 ^3/uL Lymphocytes # (Auto) 2.3 0.4-5.4 10 ^3/uL Monocytes # (Auto) 0.6 0-1.3 10 ^3/uL Eosinophils # (Auto) 0.1 0-0.8 10 ^3/uL Basophils # (Auto) 0.1 0-0.2 10 ^3/uL Nucleated Red Blood Cells 0.0 % Sodium Level 141 136-145 mmol/L Potassium Level 3.4 L 3.5-5.1 mmol/L Chloride Level 102 98-107 mmol/L Carbon Dioxide Level 29 20-31 mmol/L Anion Gap 10 5-15 Blood Urea Nitrogen 35 H 9-23 mg/dL Creatinine 1.97 H 0.550-1.02 mg/dL Glomerular Filtration Rate Calc 33 >90 mL/min BUN/Creatinine Ratio 17.8 10.0-20.0 Serum Glucose 110 H 74-106 mg/dL Calcium Level 9.4 8.7-10.4 mg/dL Magnesium Level 2.3 1.6-2.6 mg/dL Total Bilirubin 2.9 H 0.2-1.0 mg/dL Direct Bilirubin Pending Aspartate Amino Transferase (AST) 39 13-40 U/L Alanine Aminotransferase (ALT) 28 7-40 U/L Alkaline Phosphatase 124 H 46-116 U/L Total Protein 7.6 5.7-8.2 g/dL Albumin 3.6 3.2-4.8 g/dL Time of 1ST Reevaluation: 01:23 Reevaluation 1ST: Unchanged Patient Education/Counseling: Other (Need for admission) Family Education/Counseling: No Family Present SEPSIS Sepsis Screen Date sepsis recognized/suspect: Apr 18, 2025 Time Sepsis recognized/suspect: 2158 Recent Procedure: No On Antibiotic Therapy: No Respiratory Rate >20: No Heart Rate >90: No Temp<36 C (96.8 F) or >38.3 C: No SBP <90 or MAP <65 mmHG: No New Acute Mental Status Change: No Is the patient on CPAP, BIPAP,: No Vital Signs Date Time Temp Pulse Resp B/P (MAP) Pulse Ox O2 Delivery O2 Flow Rate FiO2 04/18/25 21:56 98.9 76 16 129/82 96 98.9 Laboratory Tests Test 04/19/25 02:00 White Blood Count 9.8 10^3/uL (4.4-10.8) Departure 1 Departure Time of Disposition: 01:35 Impression: Primary Impression: Displacement of vascular dialysis catheter Disposition: ADMITTED INPATIENT Condition: Stable Comments MDM: 39-year-old female with displaced hemodialysis catheter. Patient admitted to hospitalist service for further treatment, evaluation and monitoring. Extensive evaluation was performed in attempt to identify or rule out: (See differential diagnosis section) The following tests were ordered, and results were reviewed by me and discussed with patient: (See diagnostic results section) The following test were independently interpreted by me: BMP, CBC I reviewed and agreed with the following test results read by other providers: N/A I reviewed the following notes from the pt's past medical encounters: Encounter March 2025 for hemorrhage Additional information was gathered from interviewing the following independent historians: N/A Discussion of management or test interpretation with external physician/other qualified health acute care nursing assistant: N/A Addressed an acute or chronic illness that poses a threat to life or bodily function: End-stage renal disease requiring dialysis Decision regarding hospitalization or escalation of hospital level of care: Risk and benefits of admission for further treatment of patient's condition was considered. Due to patient's current clinical condition, high risk of decline and poor outcome if discharged and need for further inpatient management and monitoring, patient will be admitted to the hospital. Critical Care Note Critical Care Time?: No Stability Stability form required: No Heart Score Heart Score: Heart Score Response (Comments) Value History N/A 0 EKG N/A 0 Age N/A 0 Risk Factors N/A 0 Troponin N/A 0 Total 0 I personally scribed for CHANDAN DIAZ MD ([email or web address]) on 04/19/25 at 01:56. Electronically submitted by Sanford Case ([email or web address]). CHANDAN DIAZ MD Apr 19, 2025 01:37
[2025-04-19 02:16] LABS: Hematocrit 32.0 % (36.0-46.0); Hemoglobin 11.1 g/dL (12.2-16.2); Mean Corpuscular Hemoglobin 34.1 pg (28.0-32.0); Mean Corpuscular Volume 98.4 fL (80.0-100.0); Nucleated Red Blood Cells % 0.0 %
[2025-04-19 02:25] LABS: Chloride 102 mmol/L (98-107); Sodium 141 mmol/L (136-145)
[2025-04-19 02:26] LABS: Anion Gap 10 (5-15); Carbon Dioxide 29 mmol/L (20-31)
[2025-04-19 02:27] LABS: Calcium 9.4 mg/dL (8.7-10.4)
[2025-04-19] MEDS ORDERED: ONDANSETRON HCL 4 MG/2 ML VIAL IV PRN (02:30)
[2025-04-19 02:31] LABS: BUN/Creatinine Ratio 17.8 (10.0-20.0)
--- NOTE | 2025-04-19 02:51 | ECG ---
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
[2025-04-19 02:54] LABS: Blood Urea Nitrogen 35 mg/dL (9-23); Glucose 110 mg/dL (74-106); Potassium 3.4 mmol/L (3.5-5.1)
--- NOTE | 2025-04-19 02:55 | DVHHPRES ---
History of Present Illness Resident Creating Document: LUDY GONZALEZ RESIDENT History of Present Illness 39-year-old female with a past medical history of chronic anemia, ESRD on hemodialysis M-W-F (makes urine), chronic liver disease-cirrhosis, & history of uterine fibroids has come to the emergency department today after her dialysis catheter came out. Last dialysis was on Saturday, 2 days ago. Patient reports that she had gone to the bathroom to urinate today and on getting up felt slightly dizzy and noticed that there was blood dripping from her dialysis catheter site and the catheter had fallen out, after which she immediately placed a gauze and put bandage to stop the bleed. On inquiry patient states that the bleeding was slight, more of a dribble than spurting. She denies any chest pain, shortness of breaths, palpitations, nausea, vomiting. Bowel and bladder habits are normal. Vitals on admission are stable, hemoglobin 11.1, HCT 32.0, platelet 138. We are admitting the patient for further workup and management. PMH: as stated above PSH: Left ankle surgery - has a plate Family history: Father had liver cirrhosis as well Social history: Patient stopped smoking weed 3 years ago, stopped alcohol 3 months ago, denies any cigarette smoking allergies: Ketorolac, penicillin Code status: Full code Review of Systems Constitutional: Yes: Other (Dialysis catheter displacement, slight bleeding); No: Fever, Chills, Sweats, Weakness, Malaise Eyes: No: Pain, Vision change, Conjunctivae inflammation, Eyelid inflammation, Other, Redness ENT: No: Ear pain, Ear discharge, Nose pain, Nose discharge, Nose congestion, Mouth pain, Mouth swelling, Throat pain, Throat swelling, Other Respiratory: No: Cough, Dry, Shortness of breath, SOB with excertion, Wheezing, Hemoptysis, Pleuritic Pain, Sputum, Wheezing, Other Cardiovascular: No: Chest Pain, Palpitations, Orthopnea, Paroxysmal Noc. Dyspnea, Edema, Lt Headedness, Other Gastrointestinal: No: Nausea, Vomiting, Abdominal Pain, Diarrhea, Constipation, Melena, Hematochezia, Other Genitourinary: No Dysuria, No Frequency, No Incontinence, No Hematuria, No Retention, No Other Musculoskeletal: No: other, neck pain, shoulder pain, arm pain, back pain, hand pain, leg pain, foot pain Skin: No: Rash, Lesions, Jaundice, Bruising, Other Neurological: No: Weakness, Numbness, Incoordination, Change in speech, Con fusion, Seizures, Other Allergies: Coded Allergies: Ketorolac Tromethamine (Verified Allergy, Severe, dizziness, 06/13/24) Penicillins (Verified Allergy, Mild, dizziness, 06/13/24) Medications Current Medications Medications Dose Ordered Sig/Bárbara Route Start Time Stop Time Status Last Admin Dose Admin Ondansetron HCl 4 mg Q4HP PRN IV 04/19/25 02:30 Hydrocortisone 10 mg DAILY PO 04/19/25 10:00 Midodrine 15 mg TID@0600,1200,1800 PO 04/19/25 06:00 Bumetanide 1 mg BID PO 04/19/25 02:30 Sevelamer HCl 1,600 mg TIDWM PO 04/19/25 08:00 Ferrous Sulfate 325 mg DAILY PO 04/19/25 10:00 Exam Vital Signs Vital Signs Date Time Temp Pulse Resp B/P (MAP) Pulse Ox O2 Delivery O2 Flow Rate FiO2 04/18/25 21:56 98.9 76 16 129/82 96 98.9 Exam General Appearance: Alert, Oriented X3, Cooperative, Not in acute distress HEENT: Atraumatic, Mucous membranes moist/pink Respiratory: Clear to auscultation, Normal air movement, No added sounds Cardiovascular: Regular rate, Normal S1, Normal S2, No murmurs Abdominal: Active bowel sounds, Soft, no distention, no tenderness Extremities: No edema, Normal pulses, No tenderness/swelling Skin: No Significant rash, except past surgical scars, presence of blood soaked gauze and a clear bandage over the site where catheter came off, no active bleed Neuro: Normal speech, sensorimotor deficits none Psych/Mental Status: Mental status NL, Mood NL Labs/Xrays Labs Test 04/19/25 02:00 Range/Units White Blood Count 9.8 4.4-10.8 10^3/uL Red Blood Count 3.25 L 4.0-5.20 10^6/uL Hemoglobin 11.1 L 12.2-16.2 g/dL Hematocrit 32.0 L 36.0-46.0 % Mean Corpuscular Volume 98.4 80.0-100.0 fL Mean Corpuscular Hemoglobin 34.1 H 28.0-32.0 pg Mean Corpuscular Hemoglobin Concent 34.6 32.0-36.0 g/dL Red Cell Distribution Width 14.7 H 11.8-14.3 % Platelet Count 138 L 140-450 10^3/uL Mean Platelet Volume 8.5 6.9-10.8 fL Neutrophils (%) (Auto) 67.7 37.0-80.0 % Lymphocytes (%) (Auto) 23.4 10.0-50.0 % Monocytes (%) (Auto) 6.6 0.0-12.0 % Eosinophils (%) (Auto) 1.5 0.0-7.0 % Basophils (%) (Auto) 0.8 0.0-2.0 % Neutrophils # (Auto) 6.6 1.6-8.6 10 ^3/uL Lymphocytes # (Auto) 2.3 0.4-5.4 10 ^3/uL Monocytes # (Auto) 0.6 0-1.3 10 ^3/uL Eosinophils # (Auto) 0.1 0-0.8 10 ^3/uL Basophils # (Auto) 0.1 0-0.2 10 ^3/uL Nucleated Red Blood Cells 0.0 % SEPSIS Sepsis Screen Date sepsis recognized/suspect: Apr 18, 2025 Time Sepsis recognized/suspect: 2158 Recent Procedure: No On Antibiotic Therapy: No Respiratory Rate >20: No Heart Rate >90: No Temp<36 C (96.8 F) or >38.3 C: No SBP <90 or MAP <65 mmHG: No New Acute Mental Status Change: No Is the patient on CPAP, BIPAP,: No Physician Orders Basic Metabolic Panel (04/19/25 01:22) Admit (04/19/25 02:17) Code Status (04/19/25 02:17) Renal Standard(2gna,3gk,Lopho) (04/19/25 Breakfast) Ondansetron Hcl (Zofran) (04/19/25 02:30) Condition: Fair (04/19/25 02:17) Notify Of Changes From Base (04/19/25 02:17) Hydrocortisone Tablet (Cortef Tablet) (04/19/25 10:00) Midodrine Tablet (Proamatine Tablet) (04/19/25 06:00) Bumetanide Tablet (Bumex Tablet) (04/19/25 02:30) Sevelamer (Renagel) (04/19/25 08:00) Ferrous Sulfate Tablet (04/19/25 10:00) Urinalysis (04/19/25 02:17) Magnesium (04/19/25 02:17) Hepatic Panel (04/19/25 02:17) Chest Xray 1 View (04/19/25 02:17) *[facility] (04/19/25 02:17) Vital Signs Date Time Temp Pulse Resp B/P (MAP) Pulse Ox O2 Delivery O2 Flow Rate FiO2 04/18/25 21:56 98.9 76 16 129/82 96 98.9 Laboratory Tests Test 04/19/25 02:00 White Blood Count 9.8 10^3/uL (4.4-10.8) Assessment/Plan Assessment/Plan # ESRD on hemodialysis-MWF # Displacement of vascular dialysis catheter - nephrology consult - continue home medication sevelamer 1600 mg twice a day - Continue home medication bumetanide 1 mg twice a day - continue home medication midodrine 15 mg twice a day - continue home medication hydrocortisone 10 mg twice a day -Chest x-ray no acute cardiopulmonary disease seen - UA normal - Radiology consult for placement of tunneled dialysis catheter #Chronic mixed severe anemia- iron deficiency and anemia of chronic disease - Continue home medication ferrous sulfate 325 mg p.o. daily - last iron profile was on 01/23/2025 showed: iron 47, TIBC 209, % saturation 22.5, ferritin 64.8 #Hypokalemia - repleted - magnesium 2.3 # Cirrhosis in the setting of alcohol use disorder # Hyperbilirubinemia - Total bilirubin 2.9 ; Direct bilirubin 1.4, monitor - patient has been sober for 3 months - patient following up at [place] for possible liver transplant # History of uterine fibroids - patient reports she is scheduled for an outpatient appointment - LMP 04/11/2025- normal bleeding Diet: Renal diet Goals of care discussed with the patient for more than 27 minutes: Full code status Case discussed with Dr. Baird, patient Plan discussed with: Patient My Orders Orders - LUDY GONZALEZ RESIDENT Procedure Category Date Status Time Admit ADMIT 04/19/25 Transmitted 02:17 Code Status CODE 04/19/25 Transmitted 02:17 Renal DIET 04/19/25 Transmitted Standard(2gna,3gk,Lopho) Breakfast Ondansetron Hcl PHA 04/19/25 In Process (Zofran) 02:30 Condition: Fair RAFAEL 04/19/25 In Process 02:17 Notify Md Of Changes RAFAEL 04/19/25 In Process From Base 02:17 Hydrocortisone Tablet PHA 04/19/25 In Process (Cortef Tablet) 10:00 Midodrine Tablet PHA 04/19/25 In Process (Proamatine Tablet) 06:00 Bumetanide Tablet PHA 04/19/25 In Process (Bumex Tablet) 02:30 Sevelamer (Renagel) PHA 04/19/25 In Process 08:00 Ferrous Sulfate Tablet PHA 04/19/25 In Process 10:00 Urinalysis LAB 04/19/25 Logged 02:17 Magnesium LAB 04/19/25 In Process 02:17 Hepatic Panel LAB 04/19/25 In Process 02:17 Chest Xray 1 View XY 04/19/25 Logged 02:17 *[facility] CONS 04/19/25 Transmitted -[place] 02:17 Date of Service: Apr 19, 2025 Billing Provider: JACKIE BAIRD MD Common Visit Codes: 03356-[id number] INP/OBS CARE (HIGH) Secondary Visit Codes: 34018-[id number] CARE PLAN 30 MINUTES LUDY GONZALEZ RESIDENT Apr 19, 2025 02:55
[2025-04-19 03:00] LABS: Alanine Aminotransferase 28.0 U/L (7-40); Magnesium 2.3 mg/dL (1.6-2.6); Total Protein 7.6 g/dL (5.7-8.2)
[2025-04-19 03:01] LABS: Albumin 3.6 g/dL (3.2-4.8)
[2025-04-19] MEDS: BUMETANIDE 1 MG TAB PO SCH (03:09)
[2025-04-19 03:15] LABS: Alkaline Phosphatase 124.0 U/L (46-116); Bilirubin, Total 2.9 mg/dL (0.2-1.0)
[2025-04-19 03:30] LABS: Bilirubin, Direct 1.4 mg/dL (<0.3)
[2025-04-19] MEDS: POTASSIUM CHL 20 Meq TABLET PO ONE ×2 (03:32→12:00)
--- NOTE | 2025-04-19 04:01 | DVH ---
CHEST RADIOGRAPH Indication: sob Technique: Single frontal view of the chest was obtained COMPARISON: XY CHEST XRAY 1 VIEW on DOS: 01/10/25, XY CHEST PORTABLE on DOS: 08/24/24, XY CHEST PORTABLE on DOS: 06/16/24, XY CHEST PORTABLE on DOS: 06/13/24 FINDINGS: Lines and Tubes: None Lungs: Clear Pleura: No effusion. No pneumothorax. Cardiomediastinal contours: Unremarkable Bones: Unremarkable IMPRESSION: 1. No acute disease.
[2025-04-19 04:12] LABS: Urine Protein, UAD Negative (Negative)
[2025-04-19] MEDS: MIDODRINE HCL 10 MG TAB PO SCH (06:00)
[2025-04-19] MEDS ORDERED: SEVE800T8 PO ×2 (06:16→06:19)
[2025-04-19] MEDS ORDERED: BUMEX2MG (06:16)
[2025-04-19] MEDS ORDERED: B-CO-5 OR (06:16)
[2025-04-19] MEDS ORDERED: POTA1080 PO (06:19)
[2025-04-19] MEDS: SEVELAMER 800 MG TAB PO SCH (08:04)
[2025-04-19] MEDS: FERROUS SULFATE 325mg EC TAB PO SCH (09:38)
[2025-04-19] MEDS: HYDROCORTISONE 10 MG TAB PO SCH (09:47)
[2025-04-19 11:24] LABS: INR 1.2 (0.9-1.15); Partial Thromboplastin Time 31.3 SEC (24.5-34.5); Prothrombin Time 12.5 sec (9.3-11.8)
--- NOTE | 2025-04-19 17:29 | DVHINCON2 ---
Date of service: Apr 19, 2025 Reason for Consultation MARSHALL on HD History of Present Illness 39 years old female with past medical history of Acute kidney injury on dialysis, liver cirrhosis, uterine fibroids, anemia, presented with chief complaints of dis lodged dialysis catheter she said her last dialysis was on Saturday and then on Saturday the whole dialysis catheter came out Past Medical History per hpi Past Surgical History Ankle surgery Allergies: Coded Allergies: Ketorolac Tromethamine (Verified Allergy, Severe, dizziness, 06/13/24) Penicillins (Verified Allergy, Mild, dizziness, 06/13/24) Home Meds Active Scripts Hydrocortisone Base (CORTEF) 10 Mg Tab, 10 MG OR DAILY for 36 Days, #65 TAB Three tablets of 10 mg daily for 1 week 2 tablets of 10 mg daily for the next 2 weeks 1 tablet of 10 mg daily for the next 2 weeks Prov:[facility] 01/25/25 Midodrine HCl (Midodrine HCl) 10 Mg Tab, 15 MG PO TID@0600,1200,1800 for 30 Days, #90 TAB Prov:[facility] 01/25/25 Ferrous Sulfate (FERROUS SULFATE) 325 Mg Tb, 325 MG PO MWF for 30 Days, #30 TAB Prov:[facility] 01/25/25 Reported Medications Sevelamer Carbonate (Renvela) 800 Mg Tab, 800 MG PO, TAB 04/19/25 Potassium Citrate (Potassium Citrate) 1,080 Mg Tab, 1080 MG PO, TAB 04/19/25 Sevelamer Carbonate (Renvela) 800 Mg Tab, 2 TAB PO TID, #540 TAB 3 Refills 04/19/25 Bumetanide (Bumex) 2 Mg Tab 04/19/25 B-Complex W/ C & Folic Acid (Farnaz-Braulio) Tab, 1 OR, TAB 04/19/25 Current Medications Current Medications Medications (Trade) Dose Ordered Sig/Bárbara Route PRN Reason Start Time Stop Time Status Last Admin Ondansetron HCl (Zofran) 4 mg Q4HP PRN IV NAUSEA / VOMITING 04/19/25 02:30 Hydrocortisone (Cortef Tablet) 10 mg DAILY PO 04/19/25 10:00 04/19/25 09:47 Midodrine (Proamatine Tablet) 15 mg TID@0600,1200,1800 PO 04/19/25 06:00 04/19/25 12:01 Bumetanide (Bumex Tablet) 1 mg BID PO 04/19/25 02:30 04/19/25 17:19 DC Sevelamer HCl (Renagel) 1,600 mg TIDWM PO 04/19/25 08:00 04/19/25 12:01 Ferrous Sulfate 325 mg DAILY PO 04/19/25 10:00 04/19/25 09:38 Bumetanide (Bumex Tablet) 1 mg DAILY PO 04/20/25 09:00 UNV Family History: Diabetes mellitus G8 MOTHER FH: anemia G8 MOTHER FH: cirrhosis G8 FATHER Hypertension G8 MOTHER Review of Systems Denies any H&P Exam Vital Signs/I&O Vital Sign Date Time Temp Pulse Resp B/P (MAP) Pulse Ox O2 Delivery O2 Flow Rate FiO2 04/19/25 17:00 98.2 71 16 101/51 (68) 99 98.2 04/19/25 03:12 Room Air* 0 21 Physical Exam General-not in any distress HEENT-normocephalic, no icterus, no pallor, neck supple Respiratory-fair air entry bilateral, no rhonchi, no wheeze [id number] heard, no murmurs appreciated Abdominal-soft, nontender, nondistended Musculoskeletal-no pedal edema, no calf tenderness Genitourinary-deferred Neuro-awake alert oriented x3, Psychiatric-not agitated, cooperative, Labs/Diagnostic Data Labs/Diagnostic Data Laboratory Tests Test 04/19/25 10:30 04/19/25 03:24 04/19/25 02:00 Range/Units Prothrombin Time 12.5 H 9.3-11.8 sec Prothrombin Time INR 1.20 H 0.9-1.15 Activated Partial Thromboplast Time 31.3 24.5-34.5 SEC Urine Color Light-yellow Yellow Urine Clarity Clear Clear Urine pH 6.5 5.0-9.0 Urine Specific [place] 1.013 1.001-1.035 Urine Protein Negative Negative Urine Ketones Negative Negative Urine Blood Negative Negative /uL Urine Nitrite Negative Negative Urine Bilirubin Negative Negative Urine Urobilinogen Normal Negative mg/dL Urine Leukocyte Esterase Negative Negative /uL Urine RBC <1 0 - 4 /hpf Urine Microscopic WBC 1 0-5 /HPF Urine Squamous Epithelial Cells Few <5 /hpf Urine Bacteria Few H None Seen /hpf Urine Glucose Normal Normal mg/dL White Blood Count 9.8 4.4-10.8 10^3/uL Red Blood Count 3.25 L 4.0-5.20 10^6/uL Hemoglobin 11.1 L 12.2-16.2 g/dL Hematocrit 32.0 L 36.0-46.0 % Mean Corpuscular Volume 98.4 80.0-100.0 fL Mean Corpuscular Hemoglobin 34.1 H 28.0-32.0 pg Mean Corpuscular Hemoglobin Concent 34.6 32.0-36.0 g/dL Red Cell Distribution Width 14.7 H 11.8-14.3 % Platelet Count 138 L 140-450 10^3/uL Mean Platelet Volume 8.5 6.9-10.8 fL Neutrophils (%) (Auto) 67.7 37.0-80.0 % Lymphocytes (%) (Auto) 23.4 10.0-50.0 % Monocytes (%) (Auto) 6.6 0.0-12.0 % Eosinophils (%) (Auto) 1.5 0.0-7.0 % Basophils (%) (Auto) 0.8 0.0-2.0 % Neutrophils # (Auto) 6.6 1.6-8.6 10 ^3/uL Lymphocytes # (Auto) 2.3 0.4-5.4 10 ^3/uL Monocytes # (Auto) 0.6 0-1.3 10 ^3/uL Eosinophils # (Auto) 0.1 0-0.8 10 ^3/uL Basophils # (Auto) 0.1 0-0.2 10 ^3/uL Nucleated Red Blood Cells 0.0 % Sodium Level 141 136-145 mmol/L Potassium Level 3.4 L 3.5-5.1 mmol/L Chloride Level 102 98-107 mmol/L Carbon Dioxide Level 29 20-31 mmol/L Anion Gap 10 5-15 Blood Urea Nitrogen 35 H 9-23 mg/dL Creatinine 1.97 H 0.550-1.02 mg/dL Glomerular Filtration Rate Calc 33 >90 mL/min BUN/Creatinine Ratio 17.8 10.0-20.0 Serum Glucose 110 H 74-106 mg/dL Calcium Level 9.4 8.7-10.4 mg/dL Magnesium Level 2.3 1.6-2.6 mg/dL Total Bilirubin 2.9 H 0.2-1.0 mg/dL Direct Bilirubin 1.4 H <0.3 mg/dL Aspartate Amino Transferase (AST) 39 13-40 U/L Alanine Aminotransferase (ALT) 28 7-40 U/L Alkaline Phosphatase 124 H 46-116 U/L Total Protein 7.6 5.7-8.2 g/dL Albumin 3.6 3.2-4.8 g/dL Assessment Acute kidney injury on dialysis Liver cirrhosis Hypokalemia Recommendations GFR is 33 last dialysis was Saturday/reports good urine output Patient has renal function recovery likely No need for new dialysis catheter placement Outpatient follow-up with labs in one week with Dr. kumar in office Patient notified Dr. kumar her regular code and test clerk notified Plan discussed with: Patient EDEL HUANG MD Apr 19, 2025 17:29
[2025-04-20] VITALS (7 sets, daily range): BP systolic 99–119; BP diastolic 48–83; PULSE 69–81; RESP 17–18; TEMP 98.2–98.4; O2SAT 97–99
[2025-04-20 07:53] LABS: Carbon Dioxide 24 mmol/L (20-31); Potassium 3.8 mmol/L (3.5-5.1); Sodium 141 mmol/L (136-145)
[2025-04-20 07:55] LABS: Calcium 8.8 mg/dL (8.7-10.4)
[2025-04-20 07:59] LABS: BUN/Creatinine Ratio 18.6 (10.0-20.0); Glucose 82 mg/dL (74-106)
[2025-04-20 08:01] LABS: Blood Urea Nitrogen 32 mg/dL (9-23)
[2025-04-20 08:51] LABS: Anion Gap 11 (5-15); Chloride 106 mmol/L (98-107)
[2025-04-20] MEDS: BUMETANIDE 1 MG TAB PO SCH (10:39)
--- NOTE | 2025-04-20 15:04 | DVHPN2 ---
Progress Note Date Seen: Apr 20, 2025 Medical Necessity Reason Pt with a Central, PICC or Fol: No Subjective Patient reports: No new complaints, Feels better Review of Systems: HEENT:Normal, CVS:Normal, RESPIRATORY:Normal, GI:Normal, :Normal, MSK:Normal, NEURO:Normal Objective vital signs Vital Sign Date Time Temp Pulse Resp B/P (MAP) Pulse Ox O2 Delivery O2 Flow Rate FiO2 04/20/25 10:39 106/56 04/20/25 09:00 98.3 76 17 97 98.3 04/19/25 06:19 Room Air* 0 21 Total Intake and Output 04/19/25 04/19/25 04/20/25 15:00 23:00 07:00 Intake Total 300 ml 300 ml Balance 300 ml 300 ml medications Current Medications Medications Dose Ordered Sig/Bárbara Route Start Time Stop Time Status Last Admin Dose Admin Ondansetron HCl 4 mg Q4HP PRN IV 04/19/25 02:30 Hydrocortisone 10 mg DAILY PO 04/19/25 10:00 04/20/25 10:39 10 MG Midodrine 15 mg TID@0600,1200,1800 PO 04/19/25 06:00 04/20/25 12:37 15 MG Sevelamer HCl 1,600 mg TIDWM PO 04/19/25 08:00 04/20/25 12:36 1,600 MG Ferrous Sulfate 325 mg DAILY PO 04/19/25 10:00 04/20/25 10:38 325 MG Bumetanide 1 mg DAILY PO 04/20/25 10:00 04/20/25 10:39 1 MG laboratory and microbiology Laboratory Tests 04/20/25 06:15 04/19/25 02:00 Test 04/20/25 06:15 Range/Units Serum Glucose 82 74-106 mg/dL Problem List/Assessment/Plan Problem List/Assessment/Plan Acute kidney injury on dialysis--now held Liver cirrhosis Hypokalemia Recommendations last dialysis was Saturday/reports good urine output Patient has renal function recovery likely No need for new dialysis catheter placement and stopping dialysis now Outpatient follow-up with labs in one week with Dr. kumar in office Patient notified Dr. kumar her regular materials planning manager notified Plan discussed with: Patient My Orders My Orders Orders - EDEL HUANG MD Procedure Category Date Status Time Bumetanide Tablet PHA 04/20/25 In Process (Bumex Tablet) 10:00 Communication Order ORDERS 04/19/25 Transmitted 17:30 EDEL HUANG MD Apr 20, 2025 15:04
--- NOTE | 2025-04-20 18:09 | DVHPN2 ---
Subjective In bed resting comfortable Reviewed: H&P Changes from previous H/P or p: No Changes Eyes: No Pain, No Vision change, No Conjunctivae inflammation, No Eyelid inflammation, No Other, No Redness ENT: No Ear pain, No Ear discharge, No Nose pain, No Nose discharge, No Nose congestion, No Mouth pain, No Mouth swelling, No Throat pain, No Throat swelling, No Other Cardiovascular: No Chest Pain, No Palpitations, No Orthopnea, No Paroxysmal Noc. Dyspnea, No Edema, No Lt Headedness, No Other Respiratory: No Cough, No Dry, No Shortness of breath, No SOB with excertion, No Wheezing, No Hemoptysis, No Pleuritic Pain, No Sputum, No Other Gastrointestinal: No Nausea, No Vomiting, No Abdominal Pain, No Diarrhea, No Constipation, No Melena, No Hematochezia, No Other Genitourinary: No Dysuria, No Frequency, No Incontinence, No Hematuria, No Retention, No Other Musculoskeletal: No other, No neck pain, No shoulder pain, No arm pain, No back pain, No hand pain, No leg pain, No foot pain Skin: No Rash, No Lesions, No Jaundice, No Bruising, No Other Objective Vitals Vital Signs Date Time Temp Pulse Resp B/P (MAP) Pulse Ox O2 Delivery O2 Flow Rate FiO2 04/20/25 17:00 98.2 71 18 103/53 (70) 98 98.2 04/19/25 06:19 Room Air* 0 21 Intake/Output Intake and Output 04/20/25 05:00 Intake Total 600 ml Balance 600 ml Intake Oral 600 ml # Voids 2 General Appearance: Alert, Oriented X3 HEENT: Atraumatic Lungs: Clear to auscultation Cardiovascular: Regular rate, Normal S1, Normal S2 Abdomen: Normal bowel sounds Medications Current Medications Medications Dose Ordered Sig/Bárbara Route Start Time Stop Time Status Last Admin Dose Admin Ondansetron HCl 4 mg Q4HP PRN IV 04/19/25 02:30 Hydrocortisone 10 mg DAILY PO 04/19/25 10:00 04/20/25 10:39 10 MG Midodrine 15 mg TID@0600,1200,1800 PO 04/19/25 06:00 04/20/25 12:37 15 MG Sevelamer HCl 1,600 mg TIDWM PO 04/19/25 08:00 04/20/25 12:36 1,600 MG Ferrous Sulfate 325 mg DAILY PO 04/19/25 10:00 04/20/25 10:38 325 MG Bumetanide 1 mg DAILY PO 04/20/25 10:00 04/20/25 10:39 1 MG Laboratory Results Laboratory Tests 04/19/25 02:00 04/20/25 06:15 Chemistry Test 04/20/25 06:15 Calcium Level 8.8 mg/dL (8.7-10.4) Urinalysis Test 04/19/25 03:24 Urine Color Light-yellow (Yellow) Urine Clarity Clear (Clear) Urine pH 6.5 (5.0-9.0) Urine Specific [place] 1.013 (1.001-1.035) Urine Protein Negative (Negative) Urine Ketones Negative (Negative) Urine Blood Negative /uL (Negative) Urine Nitrite Negative (Negative) Urine Bilirubin Negative (Negative) Urine Urobilinogen Normal mg/dL (Negative) Urine Leukocyte Esterase Negative /uL (Negative) Urine RBC <1 /hpf (0 - 4) Urine Microscopic WBC 1 /HPF (0-5) Urine Squamous Epithelial Cells Few /hpf (<5) Urine Bacteria Few /hpf (None Seen) H Urine Glucose Normal mg/dL (Normal) Assessment/Plan Assessment/Plan # ESRD on hemodialysis-MWF # Displacement of vascular dialysis catheter - nephrology consult - continue home medication sevelamer 1600 mg twice a day - Continue home medication bumetanide 1 mg twice a day - continue home medication midodrine 15 mg twice a day - continue home medication hydrocortisone 10 mg twice a day -Chest x-ray no acute cardiopulmonary disease seen - UA normal -Per nephrology no need for catheter since renal function recovering monitor bmp #Chronic mixed severe anemia- iron deficiency and anemia of chronic disease - Continue home medication ferrous sulfate 325 mg p.o. daily - last iron profile was on 01/23/2025 showed: iron 47, TIBC 209, % saturation 22.5, ferritin 64.8 #Hypokalemia - repleted - magnesium 2.3 # Cirrhosis in the setting of alcohol use disorder # Hyperbilirubinemia - Total bilirubin 2.9 ; Direct bilirubin 1.4, monitor - patient has been sober for 3 months - patient following up at [facility] for possible liver transplant # History of uterine fibroids - patient reports she is scheduled for an outpatient appointment - LMP 04/11/2025- normal bleeding Plan discussed with: Patient Date of Service: Apr 20, 2025 Billing Provider: TOYA LOMBARDI MD Common Visit Codes: [id number] INP/OBS CARE(HIGH) TOYA LOMBARDI MD Apr 20, 2025 18:09
[2025-04-21 01:00] VITALS: BP 117/64; PULSE 91; RESP 17; TEMP 98.1; O2SAT 98
[2025-04-21 07:21] LABS: Chloride 106 mmol/L (98-107); Potassium 3.8 mmol/L (3.5-5.1); Sodium 142 mmol/L (136-145)
[2025-04-21 07:22] LABS: Anion Gap 11 (5-15); Carbon Dioxide 25 mmol/L (20-31)
[2025-04-21 07:23] LABS: Calcium 9.0 mg/dL (8.7-10.4)
[2025-04-21 07:27] LABS: Glucose 85 mg/dL (74-106)
[2025-04-21 07:28] LABS: BUN/Creatinine Ratio 19.6 (10.0-20.0)
[2025-04-21 07:30] LABS: Blood Urea Nitrogen 31 mg/dL (9-23)
[2025-04-21 08:00] VITALS: PULSE 63; RESP 16; O2SAT 99
[2025-04-21 08:51] VITALS: BP 106/65; PULSE 71; RESP 18; TEMP 98.4; O2SAT 97
[2025-04-21 10:17] VITALS: BP 135/83; PULSE 77; RESP 20; TEMP 98.6; O2SAT 95
--- NOTE | 2025-04-21 17:42 | DVHPN2 ---
Progress Note Date Seen: Apr 21, 2025 Medical Necessity Reason Pt with a Central, PICC or Fol: No Subjective Patient reports: No new complaints Review of Systems: Deferred Objective vital signs Vital Sign Date Time Temp Pulse Resp B/P (MAP) Pulse Ox O2 Delivery O2 Flow Rate FiO2 04/21/25 10:17 98.6 77 20 95 04/21/25 09:31 133/81 04/21/25 08:00 Room Air* 0 21 Total Intake and Output 04/20/25 04/20/25 04/21/25 15:00 23:00 07:00 Intake Total 916 ml 740 ml Balance 916 ml 740 ml Examination: GENERAL:Normal, HEENT:Normal, NECK:Normal, LUNGS:Normal, CVS:Normal, ABDOMEN:Normal, MSK:Normal, SKIN:Normal, NEURO:Normal, :Normal laboratory and microbiology Laboratory Tests 04/21/25 06:08 04/19/25 02:00 Test 04/21/25 06:08 Range/Units Serum Glucose 85 74-106 mg/dL Problem List/Assessment/Plan Problem List/Assessment/Plan Acute kidney injury on dialysis--now held Liver cirrhosis Hypokalemia Recommendations last dialysis was Saturday/reports good urine output Patient has renal function recovery likely No need for new dialysis catheter placement and stopping dialysis now Outpatient follow-up with labs in one week with Dr. kumar in office Patient notified Dr. kumar her regular appraisal manager notified Plan discussed with: Patient EDEL HUANG MD Apr 21, 2025 17:42
== END 2025-04-21 11:07 | disposition home or self-care (01) | DRG 206 ==
LOC: ER 21:51 → OVERFLOW 04-19 02:17 → WEST WING 04-19 21:43
PROVIDERS: ADMIT Hospitalist; ATTEND Hospitalist
DX: T82.42XA Displacement of vascular dialysis catheter, initial encounter (principal); N18.6 End stage renal disease; D63.8 Anemia in other chronic diseases classified elsewhere; K74.60 Unspecified cirrhosis of liver; Z99.2 Dependence on renal dialysis; N17.9 Acute kidney failure, unspecified; D50.9 Iron deficiency anemia, unspecified; Y71.2 Prosthetic and other implants, materials and accessory cardiovascular devices associated with adverse incidents; E87.6 Hypokalemia; E80.6 Other disorders of bilirubin metabolism; Z83.2 Family history of diseases of the blood and blood-forming organs and certain disorders involving the immune mechanism; Z83.3 Family history of diabetes mellitus; Z87.891 Personal history of nicotine dependence; Z82.49 Family history of ischemic heart disease and other diseases of the circulatory system; Z79.899 Other long term (current) drug therapy; Z88.6 Allergy status to analgesic agent; Z88.0 Allergy status to penicillin; Y92.89 Other specified places as the place of occurrence of the external cause
CPT/HCPCS: 36415; 71045; 80048; 80076; 81001; 83735; 85025; 85610; 85730; 93005; G0378